=== PATIENT | male | born 1945 | race Caucasian/White ===

== ENCOUNTER 2024-12-04 07:57 | Inpatient (IN) | payer MEDICARE, OTHER, SELFPAY ==
[2024-12-04] VITALS (32 sets, daily range): BP systolic 81–109; BP diastolic 48–91; PULSE 100–125; RESP 18–32; TEMP 36.4–36.6; O2SAT 89–100; BMI 25.0
--- NOTE | ~2024-12-04 | XR_ITS ---
CHEST RADIOGRAPH CLINICAL HISTORY: follow up pulmonary fibrosis . COMPARISON: 12/05/2024 TECHNIQUE: Single portable view of the chest. FINDINGS Redemonstration of diffuse interstitial thickening with a bilateral lower lobe distribution, likely c hronic. Peripheral and bibasilar honeycombing. Bibasilar pleural thickening, right greater than left. IMPRESSION: Stable radiographic evaluation of the chest demonstrating severe pulmonary fibrosis, as detailed delphine yeager. Reviewed, dictated and finalized at location A. IMPRESSION: Stable radiographic evaluation of the chest demonstrating severe pulmonary fibr osis, as detailed above.
--- NOTE | ~2024-12-04 | XR_ITS ---
XR chest 1V portable 12/14/2024 08:45 Indication: Post Covid interstitial lung disease. Procedure: AP portable chest Comparison: Comparison to multiple prior studies sequentially, with oldest reviewed study dated 12/05. Findings: Cardiomegaly. There is coarse chronic interstitial lung disease with basilar and peripheral predominance, consistent with UIP pattern. No significant change dating back to 12/05/2024. Cannot ex clude superimposed edema or pneumonia. No pneumothorax. No acute osseous Impression: 1: Stable coarse chronic interstitial lung disease. Cannot exclude superimposed edema or pneumonia. Reviewed, dictated and finalized at location A. Impression: 1: Stable coarse chronic interstitial lung disease. Cannot exclude superimposed edema or pneumonia.
--- NOTE | ~2024-12-04 | XR_ITS ---
XR chest 1V portable 12/15/2024 15:04 Indication: Tachycardia. Interstitial lung disease. Procedure: AP portable chest Comparison: Comparison to multiple prior studies sequentially, with oldest reviewed study dated 12/05. Findings: Stable bilateral mixed interstitial and airspace disease involving the mid and lower lungs. Small right pleural effusion. No pneumothorax. No acute osseous abnormality. Impression: 1: Unchanged mixed bilateral interstitial and airspace disease mid and lower lungs. Differential diag nosis includes pneumonia, edema and/or interstitial fibrosis. Reviewed, dictated and finalized at location A. Impression: 1: Unchanged mixed bilateral interstitial and airspace disease mid and lower ewa ngs. Differential diagnosis includes pneumonia, edema and/or interstitial fibro sis.
--- NOTE | ~2024-12-04 | XR_ITS ---
EXAMINATION: XR chest 1V portable DATE: 12/10/2024 05:46 INDICATION: Hypoxia TECHNIQUE: frontal view of the chest was obtained. COMPARISON: Chest radiograph dated 12/07/2024 FINDINGS: Persistent coarse reticular opacities throughout both lungs most prominent in the mid to lower lung z ones with additional patchy airspace opacities. Small right pleural effusion. No pneumothorax. Calcif ied nodules projecting over the left hemidiaphragm consistent with old granulomatous disease. Cardiom egaly. Visualized bones and soft tissues are unremarkable. IMPRESSION: 1. Persistent lower lung predominant diffuse interstitial and airspace opacities. Disc related to chr onic interstitial lung disease with and peripheral honeycombing on prior CT favoring usual interstiti al pneumonia (UIP) pattern a more acute pneumonia, moderate pulmonary edema or some combination there of. 2. Cardiomegaly. 2. Small right pleural effusion.. Reviewed, dictated and finalized at location A. IMPRESSION: 1. Persistent lower lung predominant diffuse interstitial and airspace opacitie s. Disc related to chronic interstitial lung disease with and peripheral honeyc ombing on prior CT favoring usual interstitial pneumonia (UIP) pattern a more a cute pneumonia, moderate pulmonary edema or some combination thereof. 2. Cardiomegaly. 2. Small right pleural effusion..
--- NOTE | ~2024-12-04 | CT_ITS ---
EXAMINATION: CT diagnostic chest wo con DATE: 12/12/2024 09:51 INDICATION: Post covid ILD TECHNIQUE: Computed tomography (CT) of the chest was performed without intravenous contrast. Addition al 3D reconstructions utilizing coronal maximum intensity projection (MIP) were performed. Automated exposure control and iterative reconstruction technique were employed. The dose-length product was 39 4.35 mGy-cm. COMPARISON: 12/04/2024 FINDINGS: No significant change in some volume loss in both lungs with elevation the left hemidiaphragm. Again seen is peripheral and lower lung predominant irregular septal line thickening and groundglass opacit ies with peripheral honeycombing consistent with severe usual interstitial pneumonia (UIP) pattern ch ronic interstitial lung disease. The groundglass opacities as well as more patchy airspace consolidat ion at the time of the prior study appears improved likely representing interval improvement in previ ously superimposed pneumonia or pulmonary edema. Diffuse mild pleural thickening in the right hemitho rax with a few unilateral right-sided calcified pleural plaques suggesting prior exudative effusion. Possible minimal right pleural effusion. Calcified left lower lobe nodule along with calcified left h ilar lymph nodes and a few scattered hepatic and splenic calcifications, all consistent with old gran ulomatous disease. Cardiomegaly. Small amount of atherosclerotic coronary artery calcium and aortic v alve calcific lesion. Unchanged minimal pericardial effusion. Thoracic aorta is normal in caliber. En largement of the central pulmonary arteries consistent with pulmonary arterial hypertension. Decrease in size of multiple mildly prominent but no normal-sized mediastinal lymph nodes which are likely re active. Mild to moderate thoracic spondylosis. IMPRESSION: 1. Severe peripheral and lower lung predominant UIP pattern chronic interstitial lung disease with in terval improvement in prior superimposed pulmonary edema and/or pneumonia. 2. Improvement in prior likely reactive mediastinal lymphadenopathy. 3. Unchanged pleural thickening with some scattered calcified pleural plaques in the right hemithorax , likely sequela of chronic exudative effusion with possible residual very small right pleural effusi on. 4. Cardia megaly and enlargement of the central pulmonary arteries, the latter consistent with pulmon oneil arterial hypertension likely related to the chronic interstitial lung disease. Reviewed, dictated and finalized at location A. IMPRESSION: 1. Severe peripheral and lower lung predominant UIP pattern chronic interstitia l lung disease with interval improvement in prior superimposed pulmonary edema and/or pneumonia. 2. Improvement in prior likely reactive mediastinal lymphadenopathy. 3. Unchanged pleural thickening with some scattered calcified pleural plaques i n the right hemithorax, likely sequela of chronic exudative effusion with possi ble residual very small right pleural effusion. 4. Cardia megaly and enlargement of the central pulmonary arteries, the latter consistent with pulmonary arterial hypertension likely related to the chronic i nterstitial lung disease.
--- NOTE | ~2024-12-04 | XR_ITS ---
CHEST RADIOGRAPH CLINICAL HISTORY: SOB . COMPARISON: None available. Reference is made to a contrast-enhanced CT examination of the chest performed 24 hours earlier. TECHNIQUE: Single portable view of the chest. FINDINGS Cardiomediastinal silhouette is partially obscured. Diffuse interstitial thickening with a bilateral lower lobe, likely chronic. Small bilateral pleural effusions are also noted. Peripheral and bibasilar honeycombing is present. IMPRESSION: Redemonstration of severe interstitial lung disease, as detailed above. Reviewed, dictated and finalized at location A.
--- NOTE | ~2024-12-04 | CT_ITS ---
CLINICAL INDICATION: Shortness of breath COMPARISON: None. TECHNIQUE: Multiple contiguous axial images of the chest was performed following the administration o f intravenous contrast. This CT examination was performed utilizing dose reduction techniques. DLP: 346 mGy-cm FINDINGS/OBSERVATIONS: LUNG: Severe interstitial lung disease, with peripheral honeycombing, varicose bronchiectasis, bilateral cy st formation, and diffuse, primarily bibasilar, patchy, groundglass opacification. Volume loss within the right hemithorax is present. Pleural thickening is also noted, with multiple pleural plaques. Calcified granuloma within the left lung base, consistent with prior granulomatous disease. HEART: The heart is enlarged, without pericardial effusion. MEDIASTINUM: Multiple pathologically enlarged and morphologically suspicious lymph nodes are identified within the mediastinum. The largest is within the aortopulmonary window measuring 21 mm in greatest dimension. No significant lymphadenopathy detected within the bilateral axilla or within the soft tissues of the anterior chest wall. SOFT TISSUES OF THE CHEST: Unremarkable. BONES OF THE CHEST: No acute fracture. No lytic or blastic lesions are identified. UPPER ABDOMEN: Decreased attenuation is identified within the periphery of the spleen, possibly related to bolus refugio ing in the absence of a history of trauma for which clinical correlation is needed. Fecal stasis within the colon. IMPRESSION: Severe bilateral interstitial lung disease, as detailed above. Volume loss within the right hemithorax. Mediastinal lymphadenopathy. Findings suggesting prior granulomatous disease. Decreased attenuation within the periphery of the lateral margin of the spleen, possibly related to b olus timing in the absence of a history of trauma for which clinical correlation is needed. Reviewed, dictated and finalized at location A. IMPRESSION: Severe bilateral interstitial lung disease, as detailed above. Volume loss within the right hemithorax. Mediastinal lymphadenopathy. Findings suggesting prior granulomatous disease. Decreased attenuation within the periphery of the lateral margin of the spleen, possibly related to bolus timing in the absence of a history of trauma for whi ch clinical correlation is needed.
[2024-12-04] MEDS: ALBUTEROL SULFATE NEB 2.5 MG/3 ML INH 5 MG INHALATION (08:13)
--- NOTE | 2024-12-04 08:46 | ED.GENADULT ---
HPI - General Adult General Chief complaint: Shortness of Breath/Dyspnea Stated complaint: low O2 History of Present Illness HPI narrative: 79-year-old male with history pulmonary fibrosis on 6 L of oxygen at all time presents emergency department for evaluation for increased shortness of breath. [facility] reported that the patient is post be on 2 L at all time but was on 6-8 L today. Upon arrival emergency department patient had a pulse ox 80% on his 6 L. Patient's lung sounds were clear except for on the left. Patient was treated with nebulized albuterol and placed on BiPAP shortly after arrival. Patient had a recent hospitalization at [facility] for AFib and respiratory failure. Patient does have pulmonary fibrosis. Patient does have an oxygen requirement 6 L at all times. Patient had been at [facility] and was then transferred to [facility]. Patient is on Eliquis for AFib along with metoprolol. Related Data Home Medications ?Medication ?Instructions ?Recorded ?Confirmed ?Last Taken ?Type acetaminophen 325 mg capsule 650 mg PO Q6H PRN fever or pain 12/04/24 12/04/24 Unknown History albuterol sulfate 2.5 mg/0.5 mL 2.5 mg inhalation Q8H SOB 12/04/24 12/04/24 12/03/24 History solution for nebulization albuterol sulfate 2.5 mg/3 mL 2.5 mg inhalation Q6H SOB 12/04/24 12/04/24 Unknown History (0.083 %) solution for nebulization apixaban 5 mg tablet (Eliquis) 5 mg PO Q12H 12/04/24 12/04/24 12/03/24 History atorvastatin 10 mg tablet 10 mg PO HS 12/04/24 12/04/24 12/03/24 History benzonatate 100 mg capsule 100 mg PO Q6H PRN cough 12/04/24 12/04/24 Unknown History bisacodyl 10 mg rectal suppository 10 mg RECTAL DAILY PRN constipation 12/04/24 12/04/24 Unknown History digoxin 250 mcg (0.25 mg) tablet 0.5 mg PO DAILY 12/04/24 12/04/24 12/03/24 History fluticasone propionate 50 1 spray intranasal DAILY PRN 12/04/24 12/04/24 12/03/24 History mcg/actuation nasal allergy symptoms spray,suspension insulin glargine 100 unit/mL 20 unit subcut DAILY 12/04/24 12/04/24 12/03/24 11:35 History subcutaneous solution (Lantus U-100 Insulin) insulin lispro 100 unit/mL 1 sliding scale dose subcut 12/04/24 12/04/24 12/03/24 History subcutaneous solution (Admelog .before meals U-100 Insulin lispro) magnesium hydroxide 400 mg/5 mL 30 ml PO HS PRN constipation 12/04/24 12/04/24 Unknown History oral suspension (Milk of Magnesia) melatonin 5 mg capsule 5 mg PO HS 12/04/24 12/04/24 12/03/24 History metformin 500 mg tablet 500 mg PO BID 12/04/24 12/04/24 12/03/24 History metoprolol tartrate 25 mg tablet 12.5 mg PO Q6H 12/04/24 12/04/24 12/04/24 History ondansetron HCl 4 mg tablet 4 mg PO Q6H PRN nausea and vomiting 12/04/24 12/04/24 Unknown History pantoprazole 40 mg tablet,delayed 40 mg PO BID 12/04/24 12/04/24 12/03/24 History release (Protonix) polyethylene glycol 3350 17 17 g PO BID PRN constipation 12/04/24 12/04/24 Unknown History gram/dose oral powder (ClearLax) prednisone 20 mg tablet 20 mg PO DAILY 12/04/24 12/04/24 12/03/24 History propafenone 225 mg tablet 225 mg PO Q8H 12/04/24 12/04/24 12/04/24 History tamsulosin 0.4 mg capsule 0.4 mg PO HS 12/04/24 12/04/24 12/03/24 History Allergies Allergy/AdvReac Type Severity Reaction Status Date / Time No Known Allergies Allergy Verified 12/04/24 15:01 Review of Systems Review of Systems: All systems reviewed & are unremarkable except as noted in HPI and below PMFSH Past Medical History Medical History (Updated 12/04/24 @ 17:41 by Mariusz King MD) Hyponatremia Atrial fibrillation Dyspnea Impaired skin integrity Interstitial lung disease Hypotension Family History Family History (Updated 12/04/24 @ 15:16 by Raine Rceio RN) Mother Cancer Father Heart failure Social History Social History Smoking status: Never smoker Alcohol intake: never Substance use: never Do You Feel Safe in your Home?: Yes Lack of Transportation: No Lack of Food: Never True Current Housing: I Have Housing Concerned About Future Housing: No Difficulty Paying Gas/Electric Bills: No Difficulty Paying for Meds: No Currently Unemployed: No Education: High School Diploma/GED Difficulty w/ Childcare or Family Care: No Spiritual care concerns: No Exam Narrative: APPEARANCE: Well appearing, no pain, no distress, well-nourished. HEAD: normocephalic, atraumatic. EYES: PERRLA/EOMI, conjunctivae clear. NOSE: Normal no drainage EARS:TMS clear with good light reflex. THROAT: Pharynx clear, no exudate. NECK: Supple. No adenopathy, no masses. RESPIRATORY: Decreased lung sounds on the left CARDIOVASCULAR: Regular rate and rhythm without murmurs rubs or gallops. ABDOMINAL: Soft, nontender, nondistended, normal bowel sounds MUSCULOSKELETAL: Moves all extremities. Strength/ROM intact, No edema, No calf tenderness. NEURO: Alert. Cranial nerves II through XII intact. Good gait. Good coordination SKIN: Warm, dry. Normal Color Course Vital Signs Vital signs: Vital Signs Pulse Oximetry 90 12/04/24 08:04 Oxygen Delivery Nasal Cannula 12/04/24 08:04 Oxygen Flow Rate 6 12/04/24 08:04 Temperature 97.6 F 12/04/24 16:00 Pulse Rate 125 H 12/04/24 16:57 Respiratory Rate 24 H 12/04/24 16:00 Blood Pressure 107/62 12/04/24 16:00 Pulse Oximetry 93 12/04/24 16:05 Oxygen Delivery Nasal Cannula 12/04/24 16:05 Oxygen Flow Rate 6 12/04/24 16:05 Medical Decision Making MDM Narrative Medical decision making narrative: 79-year-old male presents emergency department for possible hypoxia. Patient did have a short trial of BiPAP but family states the patient is always on 5-6 L and patient is saturating well at 5 L in the emergency department. Patient normally sats in the low 90s and that is what his pulse ox is currently. Patient denies any complaints. Medical records were not able to be obtained from [facility] but they were obtained from the [facility]. Patient does have history of atrial fibrillation, does take metoprolol and is on Eliquis. Patient's blood pressures were soft and patient was mildly tachycardic in the emergency department. Patient's blood pressures did respond well with IV fluid rehydration. Patient continues to deny any pain or complaint and patient is in no distress. Patient is currently afebrile with no leukocytosis and hemoglobin of 10.4. Patient does have an INR of 1.2. Patient does have a mild hyponatremia with a sodium of 123 and a creatinine of 1.4, baseline creatinine is not known this could be JESUS. No evidence of urinary tract infection. CT chest does show chronic changes with no evidence of acute pneumonia. EKG appears to be sinus tach. Patient's blood pressure is were in the low 100 systolic so metoprolol was not trial. Patient was not started on amiodarone, will continue IV fluid rehydration. Discussed the case with the hospitalist patient will be admitted to the IMU. Family is also concerned that the patient does not getting enough physical activity and that he is continuing to become further deconditioned. Critical Care Procedure Note Authorized and Performed by: Mariusz King Total critical care time: Approximately 36 minutes Due to a high probability of clinically significant, life threatening deterioration, the patient required my highest level of preparedness to intervene emergently and I personally spent this critical care time directly and personally managing the patient. This critical care time included obtaining a history; examining the patient; pulse oximetry; ordering and review of studies; arranging urgent treatment with development of a management plan; evaluation of patient's response to treatment; frequent reassessment; and, discussions with other providers. This critical care time was performed to assess and manage the high probability of imminent, life-threatening deterioration that could result in multi-organ failure. It was exclusive of separately billable procedures and treating other patients and teaching time. Please see MDM section and the rest of the note for further information on patient assessment and treatment. Differential Diagnosis Differential Diagnosis: Pneumonia, respiratory distress, sinus tachycardia, AFib a flutter, UTI COVID, RSV, influenza Vital Signs Vital Signs: Vital Signs Pulse Oximetry 90 12/04/24 08:04 Oxygen Delivery Nasal Cannula 12/04/24 08:04 Oxygen Flow Rate 6 12/04/24 08:04 Temperature 97.6 F 12/04/24 16:00 Pulse Rate 125 H 12/04/24 16:57 Respiratory Rate 24 H 12/04/24 16:00 Blood Pressure 107/62 12/04/24 16:00 Pulse Oximetry 93 12/04/24 16:05 Oxygen Delivery Nasal Cannula 12/04/24 16:05 Oxygen Flow Rate 6 12/04/24 16:05 Lab Data Lab results reviewed: Yes I reviewed the patient's lab results. 12/04/24 08:41 12/04/24 08:41 Labs: Lab Results 12/04/24 12/04/24 Range/Units 08:41 11:44 WBC 5.3 (4.5-10.0) K/mm3 RBC 3.66 L (4.6-6.20) M/mm3 Hgb 10.4 L (14.0-18.0) g/dL Hct 30.3 L (42.0-52.0) % MCV 82.8 (80-100) fl MCH 28.4 (26-34) pg MCHC 34.3 (32-36) g/dl RDW 15.2 H (11.5-14.5) % Plt Count 126 L (150-375) k/mm3 MPV 9.2 (7.4-10.4) fl Immature Gran % (Auto) 4.2 H (0-0.5) % Neut % (Auto) 43.0 L (45.5-73.1) % Lymph % (Auto) 48.4 H (18.3-44.2) % [place] % (Auto) 3.2 (2.6-8.5) % Eos % (Auto) 0.6 (0-4.4) % Baso % (Auto) 0.6 (0.2-1.2) % Lymph # (Auto) 2.54 (0.9-3.2) K/mm3 [place] # (Auto) 0.2 (0.1-0.6) K/mm3 Eos # (Auto) 0.0 (0-0.3) K/mm3 Baso # (Auto) 0.0 (0.0-0.1) K/mm3 Abs Immat Gran (auto) 0.22 H (0.00-0.031) K/mm3 Absolute Neuts (auto) 2.3 (1.3-6.7) K/mm3 Absolute Nucleated RBC 0.000 (0.0-0.012) K/mm3 Band Neutrophils % Not Reportable Nucleated RBC % 0.0 (0.0-0.2) % Atypical Lymphocytes Present Smudge Cells Present Platelet Estimate Decreased (Adequate) Schistocytes None seen PT 15.4 H (11.1-14.7) Seconds INR 1.2 APTT 35.8 (22.3-36.8) Seconds Sodium 123 L (137-145) mmol/L Potassium 4.1 (3.4-5.0) mmol/L Chloride 96 L (98-107) mmol/L Carbon Dioxide 25 (22-30) mmol/L Anion Gap 2 L (4-12) mmol/L BUN 27 H (9-20) mg/dL Creatinine 1.40 H (0.7-1.3) mg/dL Estim Creat Clear Calc 41 ml/min Estimated GFR 49 L (59 - ) Glucose 72 (65-110) mg/dL POC Capillary Glucose 81 (65-105) mg/dl Lactic Acid 0.9 (0.7-2.0) mmol/L Calcium 7.1 L (8.4-10.2) mg/dL Total Bilirubin 0.6 (0.2-1.3) mg/dL AST 26 (17-59) U/L ALT 25 (6-50) U/L Alkaline Phosphatase 69 (38-126) U/L Total Protein 4.8 L (6.3-8.2) g/dL Albumin 2.2 L (3.5-5.1) g/dL Urine Color Yellow (Yellow) Urine Appearance Clear (Clear) Urine pH 5.5 (5.0-9.0) Ur Specific [place] 1.020 (1.001-1.035) Urine Protein 1+ H (Negative) mg/dL Urine Glucose (UA) Negative (Negative) mg/dL Urine Ketones Trace H (Negative) mg/dL Ur Blood (Man) Negative (Negative) Urine Nitrate Negative (Negative) Urine Bilirubin 1+ H (Negative) Urine Urobilinogen 1.0 (<2.0) mg/dL Leukocyte Esterase Rfl Negative (Negative) SHA/UL Urine RBC 0-2 (0-2) /hpf Urine WBC 0-5 (0-3) /hpf Ur Squamous Epith Cells None seen (Few) /hpf Urine Bacteria None seen /hpf Urine Casts 0-2 Imaging Data Radiologist's impression: Impressions Chest CT 12/04/24 10:59 IMPRESSION: Severe bilateral interstitial lung disease, as detailed above. Volume loss within the right hemithorax. Mediastinal lymphadenopathy. Findings suggesting prior granulomatous disease. Decreased attenuation within the periphery of the lateral margin of the spleen, possibly related to bolus timing in the absence of a history of trauma for which clinical correlation is needed. ECG Data EKG #1: EKG Interpretation: tachycardia, sinus rhythm, no ectopy, non-specific ST changes, normal QRS and NL axis Critical Care Time Critical Care Time Critical Care Time: Yes Total Critical Care Time: 36 Discharge Plan Discharge Clinical Impression: Interstitial lung disease, Hypotension, Dyspnea, Tachycardia Patient Disposition: Still a Patient Condition: Serious
[2024-12-04] MEDS: LACTATED RINGERS 1,000 ML 999 ML IV CONT ×2 (08:51→12:31)
[2024-12-04 08:54] LABS: Hematocrit 30.3 % (42.0-52.0); Hemoglobin 10.4 g/dL (14.0-18.0); Immature Granulocyte Percent A 4.2 % (0-0.5); Lymphocytes Absolute Auto 2.54 K/mm3 (0.9-3.2); Mean Corpuscular HGB Conc 34.3 g/dl (32-36); Mean Corpuscular Hemoglobin 28.4 pg (26-34); Mean Corpuscular Volume 82.8 fl (80-100); Nucleated Red Blood Cells Absolute Auto 0.000 K/mm3 (0.0-0.012); Nucleated Red Blood Cells Perc 0.0 % (0.0-0.2); Platelet Count Result 126 k/mm3 (150-375); Red Blood Count 3.66 M/mm3 (4.6-6.20); White Blood Count 5.3 K/mm3 (4.5-10.0)
[2024-12-04 09:03] LABS: Appearance Urine Clear (Clear); Glucose Urine UA Negative (Negative); Nitrate Urine Negative (Negative); Specific Grav Ur 1.020 (1.001-1.035)
[2024-12-04 09:04] LABS: Add Urine Microscopic? YES; INR 1.2; Leukocyte Esterase Ur Negative LEU/UL (Negative); Partial Thromboplastin Time 35.8 Seconds (22.3-36.8); Prothrombin Time 15.4 Seconds (11.1-14.7)
[2024-12-04 09:05] LABS: Non Pathogenic Casts 0-2
[2024-12-04 09:08] LABS: Schistocytes None Seen; Smudge Cells PRESENT
[2024-12-04 09:12] LABS: Alanine Aminotransferase 25 U/L (6-50); Albumin Level 2.2 g/dL (3.5-5.1); Alkaline Phosphatase 69 U/L (38-126); Anion Gap 2 mmol/L (4-12); Aspartate Amino Transferase 26 U/L (17-59); Bilirubin,Total 0.6 mg/dL (0.2-1.3); Blood Urea Nitrogen 27 mg/dL (9-20); Calcium 7.1 mg/dL (8.4-10.2); Carbon Dioxide 25 mmol/L (22-30); Chloride 96 mmol/L (98-107); Estimated CRCL calculation 41 ml/min; Estimated Glomerular Filt Rate 49; Glucose 72 mg/dL (65-110); Potassium 4.1 mmol/L (3.4-5.0); Sodium 123 mmol/L (137-145); Total Protein 4.8 g/dL (6.3-8.2)
--- NOTE | 2024-12-04 11:19 | ECG_ITS ---
Test Date: 2024-12-04 12:28:35 Measurements Intervals [place] Rate: 123 P: 229 TN: 192 QRS: 33 QRSD: 116 T: -30 QT: 289 QTc: 414 Interpretive Statements SINUS TACHYCARDIA INCOMPLETE RIGHT BUNDLE BRANCH BLOCK [90+ ms QRS DURATION, TERMINAL R IN V1/V2, 40+ ms S IN I/aVL/V4/V5/V6] MINIMAL ST DEPRESSION No previous ECG available for comparison Electronically Signed On 12-04-2024 18:00:36 CDT by Randal Pham M.D.
--- NOTE | 2024-12-04 12:56 | ECG_ITS ---
Test Date: 2024-12-04 12:52:17 Measurements Intervals [place] Rate: 119 P: 0 NE: 0 QRS: 27 QRSD: 123 T: -31 QT: 333 QTc: 469 Interpretive Statements ATRIAL FLUTTER/TACHYCARDIA WITH RAPID VENTRICULAR RESPONSE MODERATE INTRAVENTRICULAR CONDUCTION DELAY [110+ ms QRS DURATION] MODERATE ST DEPRESSION [0.05+ mV ST DEPRESSION] Compared to ECG 12/04/2024 12:28:35 Intraventricular conduction delay now present Sinus tachycardia no longer present Incomplete right bundle-branch block no longer present ST (T wave) deviation still present Electronically Signed On 12-04-2024 18:02:23 CDT by Randal Pham M.D.
--- NOTE | 2024-12-04 14:50 | WNDPHOTO ---
PHOTO ONLY - See Nursing Notes and/ or assessments for documentation.
--- NOTE | 2024-12-04 14:50 | WNDPHOTO ---
PHOTO ONLY - See Nursing Notes and/ or assessments for documentation.
--- NOTE | 2024-12-04 15:03 | P.HP_ITS ---
H&P: HPI History of Present Illness Date/Time: 12/04/24 15:03 Chief Complaint: Dyspnea Narrative: This is an 79 year male patient with past medical history significant pulmonary fibrosis status post COVID diagnosis on 6 L oxygen, atrial fibrillation on and control metoprolol who currently resides at [facility] Where he is currently at for rehabilitation. Prior to going to [facility], [facility] was in [facility] [place] and transferred to [place] and ultimately transferred to [facility]. Pt alert, oriented x4 and without any acute complaint. He was sent to the ER with complaints of hypoxia and dyspnea after nursing service found him with low oxygen sats in his room, noted to be on 2L. He was sent to the ER where he required a few moments of BiPap and has ultimately recovered to his baseline on 5L Supplemental oxygen. His EKG upon arrival to the ER showed a variable rate/rhythm that was either ST or A-flutter/tach with rates from low 100s-120s. Although he has Metoprolol ordered for rate control as he does have a hx of A- fib, it was not given as pt's BP has been on the lower side. Pt has no respiratory complaints and no concerns of CP. His only complaint is pain in his coccyx region from breakdown. In the emergency room fall was performed EKG showing either sinus tachycardia versus a flutter with RVR, however unable to be controlled with beta blockade as patient's blood pressure has been low. CT of the chest showing severe bilateral interstitial lung disease with mediastinal lymphadenopathy present. CBC unremarkable with WBC is 5.3 and intact H&H. Metabolic panel showing hypo natremia at 1:23 a.m.. Renal function impaired with creatinine and BUN of 1.4/, however we do not know patient's baseline as there is none historical in our system. Glucose noted to be 72. Urinalysis was unremarkable and coags are normal. ER physician was concerned for potential dehydration component contributing to patient's tachycardia. He was given a Liter of LR and albuterol nebulizer. It should be noted that we do not have any historical information of PMH on this pt in our EMR system for comparison and trending purposes. He tells me that he does not see a regular Generator [employer] for his ILD. He also does not see a Client Resource Specialist despite his hx of A-fib. Review of Systems Review of Systems: All systems reviewed & are unremarkable except as noted in HPI and below PMFSH Past Medical History Medical History (Updated 12/04/24 @ 15:32 by ALLI Mcwilliams) Hyponatremia Atrial fibrillation Dyspnea Impaired skin integrity Interstitial lung disease Hypotension Family History Family History (Updated 12/04/24 @ 15:16 by Raine Recio RN) Mother Cancer Father Heart failure Social History Social History Smoking status: Never smoker Alcohol intake: never Substance use: never Do You Feel Safe in your Home?: Yes Lack of Transportation: No Lack of Food: Never True Current Housing: I Have Housing Concerned About Future Housing: No Difficulty Paying Gas/Electric Bills: No Difficulty Paying for Meds: No Currently Unemployed: No Education: High School Diploma/GED Difficulty w/ Childcare or Family Care: No Spiritual care concerns: No Meds Home Medications and Allergies Allergies Allergy/AdvReac Type Severity Reaction Status Date / Time No Known Allergies Allergy Verified 12/04/24 15:01 Vital Signs Vital Signs - 24 hr 12/04/24 08:04 12/04/24 08:08 12/04/24 08:10 Temperature 97.9 F Pulse Rate 118 H 120 H Respiratory Rate 28 H 24 H Blood Pressure 88/59 L 87/60 L Pulse Oximetry 90 90 98 Oxygen Delivery Nasal Cannula Nasal Cannula Oxygen Flow Rate 6 6 12/04/24 08:15 12/04/24 08:15 12/04/24 08:29 Temperature Pulse Rate 120 H 120 H 119 H Respiratory Rate 32 H 32 H 29 H Blood Pressure Pulse Oximetry 100 Oxygen Delivery BiPAP Oxygen Flow Rate 12/04/24 09:15 12/04/24 09:31 12/04/24 09:35 Temperature 97.8 F Pulse Rate 118 H 121 H 121 H Respiratory Rate 24 H 18 18 Blood Pressure 105/62 89/71 L Pulse Oximetry 100 100 100 Oxygen Delivery BiPAP Oxygen Flow Rate 12/04/24 10:01 12/04/24 10:16 12/04/24 11:17 Temperature 97.9 F 97.8 F Pulse Rate 122 H 122 H 121 H Respiratory Rate 18 24 H 21 H Blood Pressure 109/91 H 101/64 81/55 L Pulse Oximetry 94 90 Oxygen Delivery Oxygen Flow Rate 12/04/24 11:37 12/04/24 11:45 12/04/24 12:00 Temperature 97.7 F Pulse Rate 114 H 122 H 122 H Respiratory Rate 18 22 H 20 Blood Pressure 84/51 L 82/48 L 87/52 L Pulse Oximetry 96 96 97 Oxygen Delivery Oxygen Flow Rate 12/04/24 12:11 12/04/24 12:15 12/04/24 12:30 Temperature Pulse Rate 122 H 122 H 114 H Respiratory Rate 26 H 28 H 25 H Blood Pressure 88/67 L 88/62 L 93/57 L Pulse Oximetry 94 96 97 Oxygen Delivery Oxygen Flow Rate 12/04/24 12:45 12/04/24 13:00 12/04/24 13:15 Temperature 97.7 F Pulse Rate 121 H 120 H 121 H Respiratory Rate 18 18 20 Blood Pressure 98/58 L 103/63 100/61 Pulse Oximetry 99 99 91 Oxygen Delivery Oxygen Flow Rate 12/04/24 13:30 12/04/24 13:45 Temperature 97.6 F Pulse Rate 122 H 100 Respiratory Rate 19 19 Blood Pressure 93/62 L 95/61 L Pulse Oximetry 95 93 Oxygen Delivery Oxygen Flow Rate Exam Const: General: comfortable and no acute distress Other: Elderly male pt lying in bed at this time in no acute distress. HENMT: Face/Nose/Sinus: Normal nares present Mouth: Yes moist mucous membranes Eyes: General: appearance normal, both eyes and all related structures Neck: Neck: supple and no JVD Lymphatic: lymphadenopathy not noted Chest: Other: Non-tender Resp: Effort & Inspection: normal respiratory effort Auscultation: rhonchi lower bilaterally (coarse in bases.) Cardio: Rate: tachycardic Rhythm: regular rhythm Heart sounds: no gallops, no murmurs and no rubs GI: GI Palp: Yes Soft to palpation and No Tenderness to palpation present (GI) Auscultation: normal bowel sounds Skin: Rashes: rashes noted (Red, purpural rash in a band around the abdomen, back and the sides ) Wounds: wounds noted (coccyx stage 2) Other: Rash is in a location where a depends or an adult brief would sit on his skin. Pt acknowledges that he does wear a brief at the halfway. Neuro: Speech: normal speech Motor exam (neuro): 5/5 motor strength present throughout Sensory Exam: normal sensation Other: No focal deficit. Extrem: General: no edema and no pedal edema Other: No swelling present. FROM of extremities without deficit. Psych: Mental Status: mental status grossly normal Affect: normal affect H&P: Results Labs Labs: Short CBC 12/04/24 Range/Units 08:41 WBC 5.3 (4.5-10.0) K/mm3 Hgb 10.4 L (14.0-18.0) g/dL Hct 30.3 L (42.0-52.0) % Plt Count 126 L (150-375) k/mm3 BMP 12/04/24 08:41 Sodium 123 L Potassium 4.1 Chloride 96 L Carbon Dioxide 25 BUN 27 H Creatinine 1.40 H Glucose 72 Calcium 7.1 L Liver Function 12/04/24 Range/Units 08:41 Total Bilirubin 0.6 (0.2-1.3) mg/dL AST 26 (17-59) U/L ALT 25 (6-50) U/L Alkaline Phosphatase 69 (38-126) U/L Albumin 2.2 L (3.5-5.1) g/dL Urine 12/04/24 Range/Units 08:41 Urine Color Yellow (Yellow) Urine Appearance Clear (Clear) Urine pH 5.5 (5.0-9.0) Ur Specific [place] 1.020 (1.001-1.035) Urine Protein 1+ H (Negative) mg/dL Urine Glucose (UA) Negative (Negative) mg/dL Assessment and Plan Assessment and plan (1) Hypotension: Code(s): I95.9 - Hypotension, unspecified Status: Acute Assessment and Plan: * Pt's BP has been running soft 87-109/48-91. * Continue Telemetry * Monitor. * Hold any BP meds at this time. * If pt flips into Fib RVR, consider Amiodarone for rhythm/rate. * Consider Consult to Cardiology. (2) Dyspnea: Code(s): R06.00 - Dyspnea, unspecified Status: Acute Assessment and Plan: * Likely acute on chronic and likely invoked by the decreased baseline supplemental oxygen at halfway. * Continue pt's baseline 5L-6L per [place] supplemental oxygen. * Rhonchi present on physical exam. Will order Duonebs Q6 hrs scheduled and prn Albuterol nebs. * Continue to monitor oxygen sats on telemetry * Consult Pulmonology in the setting of chronic ILD after COVID dx. (3) Hyponatremia: Code(s): E87.1 - Hypo-osmolality and hyponatremia Status: Acute Assessment and Plan: * Sodium is 123. * Replace with gentle hydration with NS at 100 ml.hr. * Trend with Labs. (4) Impaired skin integrity: Code(s): R23.9 - Unspecified skin changes Status: Acute Assessment and Plan: * Wounds noted to Coccyx and buttocks. Pics taken by nurse. * Consult Wound nurse * Offload weight on affected area. * For rash around abdomen, suggest not wearing a depends/adult brief. (5) Interstitial lung disease: Code(s): J84.9 - Interstitial pulmonary disease, unspecified Status: Chronic Assessment and Plan: * See #2 * Consult Pulmonology * ABG in AM. * Continue Nebs and supportive care * Continue Telemetry (6) Atrial fibrillation: Code(s): I48.91 - Unspecified atrial fibrillation Status: Chronic Assessment and Plan: * Unable to use Beta theresa at this time secondary to Hypotension as noted in #1. * Continue Eliquis * Continue Telemetry * Consider Cardiology eval and addition of Amiodarone to meds if rate/rhythm is not well controlled. Quality VTE Prophylaxis VTE prophylaxis: pharmacologic ordered Hospitalist MIPS Advance Care Plan I have confirmed that the patient's Advanced Care Plan is present, code status is documented, or surrogate decision maker is listed in patient medical record.: Yes Medication Reconciliation I have utilized all available resources to obtain, update and review the patients current medications (includes all prescriptions, OTC, herbals, cannabis, and nutritional supplements).: Yes
--- NOTE | 2024-12-04 15:03 | ADMGEN ---
This patient, Zack Fofana, was admitted to IMU Room 204-01 at approximately 1500. Patient/family oriented to hospital policies and general routines including ID bracelet, bed and alarms, visiting hours, pain management, procedures, bathroom and other care routines, personal items, smoking policy, room service/diet, and visiting hours. Information on how to activate the Rapid Response Team has been discussed. Patient/Family are encouraged to report perceived risks to care and to ask questions if they do not understand what they are told or what they should do.
[2024-12-04] MEDS: SODIUM CHLORIDE 0.9% IV 1,000 ML 100 ML IV CONT (16:12)
--- NOTE | 2024-12-04 18:35 | ECG_ITS ---
Test Date: 2024-12-04 18:35:41 Measurements Intervals [place] Rate: 122 P: 0 MA: 0 QRS: 144 QRSD: 121 T: 222 QT: 331 QTc: 472 Interpretive Statements ATRIAL FLUTTER/TACHYCARDIA WITH RAPID VENTRICULAR RESPONSE WITH ABERRANT CONDUCTION OR VENTRICULAR PREMATURE COMPLEXES INTRAVENTRICULAR CONDUCTION DELAY Compared to ECG 12/04/2024 12:52:17 Ventricular premature complex(es) now present Aberrant conduction of supraventricular beat(s) now present Electronically Signed On 12-05-2024 12:36:02 CDT by Randal Pham M.D.
[2024-12-04] MEDS: IPRATROPIUM 0.5 MG/ALBUTEROL SULFATE 2.5 MG AMPUL.NEB 3 ML INHALATION (19:45)
[2024-12-04] MEDS: APIXABAN 5 MG TABLET PO (20:57)
[2024-12-04 21:37] LABS: Hemoglobin A1C 7.5 % (<5.7)
[2024-12-04] MEDS: TAMSULOSIN HCL 0.4 MG CAPSULE PO (21:37)
[2024-12-04] MEDS: MELATONIN 5 MG TABLET PO (21:37)
[2024-12-04] MEDS: ATORVASTATIN 10 MG TABLET PO (21:37)
[2024-12-04 22:08] LABS: Digoxin < 0.5 ng/mL (0.8-2.0)
[2024-12-05] VITALS (38 sets, daily range): BP systolic 94–110; BP diastolic 50–64; PULSE 92–131; RESP 20–26; TEMP 36.4–36.9; O2SAT 87–97
--- NOTE | 2024-12-05 | ECHO_ITS ---
Patient Info Name: Zack Fofana Age: 79 years : 1945 Gender: Male Ht: 72 in Wt: 188 lbs BSA: 2.09 m2 HR: 91 bpm BP: 110 / 50 mmHg Heart Rhythm: Sinus Rhythm Technical Quality: Fair Exam Date: 12/05/2024 12:39 PM Patient Status: I Admit Date: 12/04/2024 Exam Type: CA echo doppler color flow Complete two-dimensional, color flow and Doppler transthoracic echocardiogram is performed. Staff Referring Physician: Oh Cabello Sensitizer: Ronit Holder Attending Provider: Oh Cabello Summary 1. Complete two-dimensional, color flow and Doppler transthoracic echocardiogram is performed. 2. There is normal biventricular size and systolic function. 3. The aortic valve is not well visualized however does not appear to have any hemodynamically significant aortic stenosis. 4. There are no significant valvular abnormalities. 5. There is insufficient tricuspid regurgitation to calculate the pulmonary artery systolic pressures. 6. There is a small size pericardial effusion. Left Ventricle The left ventricle is normal in size with hyperdynamic systolic function. The left ventricular ejection fraction is greater than 70%. Right Ventricle The right ventricle is normal in size and systolic function. Left Atria The left atrium is mildly dilated. Right Atria The right atrium is normal size. Atrial Septum The atrial septum is normal. Aortic Valve The aortic valve is not well visualized. There is no echo gradient Doppler evidence for hemodynamically significant aortic stenosis. Pulmonic Valve The pulmonic valve is not well visualized. Mitral Valve The mitral valve is normal. There is no mitral regurgitation. Tricuspid Valve The tricuspid valve is normal. There is trace tricuspid regurgitation. Pericardium/Pleural There is a small size pericardial effusion. Inferior Vena Cava Normal inferior vena cava with >50% collapse upon inspiration consistent with normal right atrial pressure, 3 mmHg. Aorta The aortic root is not well visualized. Left Ventricular Outflow Tract Name Value Normal LVOT 2D LVOT Diameter 2.0 cm LVOT Doppler LVOT Peak Velocity 121 cm/s LVOT Peak Gradient 6 mmHg LVOT Mean Gradient 3 mmHg LVOT VTI 16 cm LVOT VTI/AV VTI Ratio 0.9 LVOT Stroke Volume 51 ml LVOT CO 6.4 l/min LVOT CI 3.0 l/min/m2 Pulmonic Valve Name Value Normal RVOT Doppler RVOT Peak Velocity 91 cm/s RVOT Peak Gradient 3 mmHg PV Doppler PV Peak Velocity 112 cm/s PV Peak Gradient 5 mmHg Mitral Valve Name Value Normal MV Diastolic Function MV E Peak Velocity 85 cm/s MV A Peak Velocity 73 cm/s MV E/A 1.2 MV Decel Time (PW) 93 ms MV Annular TDI MV E/e' (Septal) 10.4 MV E/e' (Lateral) 11.1 MV E/e' (Average) 10.7 Tricuspid Valve Name Value Normal TV Regurgitation Doppler TR Peak Velocity 308 cm/s TR Peak Gradient 38 mmHg Estimated PAP/RSVP RA Pressure 3 mmHg <=5 PA Systolic Pressure 41 mmHg <36 RV Systolic Pressure 41 mmHg <36 TV Annular TDI TV Lateral Dulce s' Velocity 16.6 cm/s >=9.5 Aorta Name Value Normal Ascending Aorta Ao Root Diameter (MM) 3.6 cm Ao Root Diam Index (MM) 1.7 cm/m2 Aortic Valve Name Value Normal AV Doppler AV Peak Velocity 155 cm/s AV Peak Gradient 10 mmHg AV Mean Gradient 5 mmHg AV VTI 19 cm AV Area (Cont Eq VTI) 2.7 cm2 >=3.0 AV Area (Cont Eq Phillip) 2.4 cm2 AV DI (Phillip) 0.78 AV Regurgitation 2D LVOT Area 3.1 cm2 Ventricles Name Value Normal LV Dimensions 2D/MM IVS Diastolic Thickness (2D) 0.9 cm 0.6-1.0 LVID Diastole (2D) 4.3 cm 4.2-5.8 LVIW Diastolic Thickness (2D) 0.8 cm 0.6-1.0 LVID Systole (2D) 3.0 cm 2.5-4.0 LVOT Diameter 2.0 cm LV Mass (2D Cubed) 116.94 g 88.00-224.00 LV Mass Index (2D Cubed) 56 g/m2 49-115 Relative Wall Thickness (2D) 0.37 <=0.42 LV Fractional Shortening/Ejection Fraction 2D/MM LV Fractional Shortening (2D) 30 % 25-43 LV EF (2D Teichholz) 57 % LV Diastolic Volume (4C MOD) 55 ml LV EF (4C MOD) 69 % LV Diastolic Volume (2C MOD) 50 ml LV EF (2C MOD) 66 % LV Diastolic Volume (BP MOD) 53 ml 62-150 LV Diastolic Volume Index (BP MOD) 25 ml/m2 34-74 LV Systolic Volume (BP MOD) 17 ml 21-61 LV Systolic Volume Index (BP MOD) 8 ml/m2 11-31 LV EF (BP MOD) 67 % 52-72 LV Diastolic Length (4C) 7.6 cm LV Systolic Length (4C) 6.7 cm LV Stroke Volume (4C MOD) 38 ml Atria Name Value Normal LA Dimensions LA Dimension (MM) 4.7 cm 3.0-4.0 LA Volume (4C A-L) 77 ml LA Volume (BP A-L) 82 ml RA Dimensions RA Systolic Major Brandon Length (4C) 6.9 cm 2.1-2.7 RA Area (4C) 26.0 cm2 <=18.0 Report Signatures
[2024-12-05] MEDS: IPRATROPIUM 0.5 MG/ALBUTEROL SULFATE 2.5 MG AMPUL.NEB 3 ML INHALATION (01:00)
--- NOTE | 2024-12-05 02:37 | ECG_ITS ---
Test Date: 2024-12-05 02:41:03 Measurements Intervals [place] Rate: 130 P: 0 NH: 0 QRS: 57 QRSD: 121 T: -34 QT: 216 QTc: 318 Interpretive Statements ATRIAL FLUTTER/TACHYCARDIA WITH RAPID VENTRICULAR RESPONSE POSSIBLE INFERIOR MYOCARDIAL INFARCTION [30 ms Q WAVE IN II/aVF], PROBABLY OLD ABNORMAL RHYTHM ECG Compared to ECG 12/04/2024 18:35:41 Myocardial infarct finding now present Ventricular premature complex(es) no longer present Aberrant conduction of supraventricular beat(s) no longer present Intraventricular conduction delay no longer present Electronically Signed On 12-05-2024 12:40:47 CDT by Randal Pham M.D.
[2024-12-05] MEDS: SODIUM CHLORIDE 0.9% IV 1,000 ML 100 ML IV CONT ×2 (02:58→17:24)
[2024-12-05] MEDS: METOPROLOL TARTRATE INJ 5 MG/5 ML VIAL IV PUSH (04:03)
[2024-12-05 04:28] LABS: Hematocrit 32.0 % (42.0-52.0); Hemoglobin 10.6 g/dL (14.0-18.0); Immature Granulocyte Percent A 4.1 % (0-0.5); Lymphocytes Absolute Auto 2.03 K/mm3 (0.9-3.2); Mean Corpuscular HGB Conc 33.1 g/dl (32-36); Mean Corpuscular Hemoglobin 27.8 pg (26-34); Mean Corpuscular Volume 84.0 fl (80-100); Nucleated Red Blood Cells Absolute Auto 0.000 K/mm3 (0.0-0.012); Nucleated Red Blood Cells Perc 0.0 % (0.0-0.2); Platelet Count Result 150 k/mm3 (150-375); Red Blood Count 3.81 M/mm3 (4.6-6.20); White Blood Count 5.2 K/mm3 (4.5-10.0)
[2024-12-05 04:39] LABS: INR 1.3; Prothrombin Time 16.3 Seconds (11.1-14.7)
[2024-12-05 04:40] LABS: Partial Thromboplastin Time 30.4 Seconds (22.3-36.8)
[2024-12-05 04:54] LABS: Alanine Aminotransferase 24 U/L (6-50); Albumin Level 2.1 g/dL (3.5-5.1); Alkaline Phosphatase 66 U/L (38-126); Anion Gap 4 mmol/L (4-12); Aspartate Amino Transferase 29 U/L (17-59); Bilirubin,Total 0.6 mg/dL (0.2-1.3); Blood Urea Nitrogen 21 mg/dL (9-20); Calcium 7.1 mg/dL (8.4-10.2); Carbon Dioxide 24 mmol/L (22-30); Chloride 99 mmol/L (98-107); Estimated CRCL calculation 48 ml/min; Estimated Glomerular Filt Rate 59; Glucose 70 mg/dL (65-110); Magnesium 1.7 mg/dL (1.6-2.3); Potassium 4.1 mmol/L (3.4-5.0); Sodium 127 mmol/L (137-145); Total Protein 4.8 g/dL (6.3-8.2)
[2024-12-05 05:16] LABS: Thyroid Stimulating Hormone Reflex 1.400 uIU/mL (0.465-4.68)
[2024-12-05] MEDS: DIGOXIN 250 MCG TABLET 500 MCG PO (09:17)
[2024-12-05] MEDS: APIXABAN 5 MG TABLET PO ×2 (09:18→20:15)
[2024-12-05] MEDS: INSULIN GLARGINE (*BKC) 100 UNITS/ML 20 UNITS SUB-Q (10:56)
--- NOTE | 2024-12-05 11:04 | PC.NURSE ---
Pts heart rate sustaining between 125-130. Dr. Cabello notified. Resuming home dose of metoprolol and changing nebulizer treatment
[2024-12-05] MEDS: METOPROLOL TARTRATE 12.5 MG TABLET PO ×2 (12:09→17:23)
--- NOTE | 2024-12-05 13:31 | P.PNIM_ITS ---
Progress Note: A&P Assessment and Plan (1) Hypotension: Code(s): I95.9 - Hypotension, unspecified Status: Acute Assessment and Plan: * Pt's BP has been running soft 87-109/48-91. * Continue Telemetry no Pnuemomnia on chest x ray titrate home meds with clinical course Continue IVF and monitor closely (2) Dyspnea: Code(s): R06.00 - Dyspnea, unspecified Status: Acute Assessment and Plan: * Likely acute on chronic and likely invoked by the decreased baseline supplemental oxygen at [facility]. * Continue pt's baseline 5L-6L per [place] supplemental oxygen. * Rhonchi present on physical exam. Will order Duonebs Q6 hrs scheduled and prn Albuterol nebs. * Continue IV Steroid * Consulted Pulmonology (3) Hyponatremia: Code(s): E87.1 - Hypo-osmolality and hyponatremia Status: Acute Assessment and Plan: * Sodium is 127 * with rehydration * urine studies pending (4) Impaired skin integrity: Code(s): R23.9 - Unspecified skin changes Status: Acute Assessment and Plan: * Wounds noted to Coccyx and buttocks. Pics taken by nurse. * Consult Wound nurse * Offload weight on affected area. * For rash around abdomen, suggest not wearing a depends/adult brief. (5) Interstitial lung disease: Code(s): J84.9 - Interstitial pulmonary disease, unspecified Status: Chronic Assessment and Plan: contineu above care (6) Atrial fibrillation: Code(s): I48.91 - Unspecified atrial fibrillation Status: Chronic Assessment and Plan: * Unable to use Beta theresa at this time secondary to Hypotension as noted in #1. * Continue Eliquis * restart MEtoprolol adn Digoxin adn monitor blood pressure * EHCO pending Plan DVT prohylaxis on Eliquis Subjective Date/time seen: 12/05/24 13:31 Interval history: Comfortable at bedside Review of Systems Review of Systems: All systems reviewed & are unremarkable except as noted in HPI and below Exam Const: General: comfortable and no acute distress Other: Elderly male pt lying in bed at this time in no acute distress. HENMT: Face/Nose/Sinus: Normal nares present Mouth: Yes moist mucous membranes Eyes: General: appearance normal, both eyes and all related structures Neck: Neck: supple and no JVD Lymphatic: lymphadenopathy not noted Chest: Other: Non-tender Resp: Effort & Inspection: normal respiratory effort Auscultation: rhonchi lower bilaterally (coarse in bases.) Cardio: Rate: tachycardic Rhythm: regular rhythm Heart sounds: no gallops, no murmurs and no rubs GI: Auscultation: normal bowel sounds Skin: General skin exam: rashes (Red, purpural rash in a band around the abdomen, back and the sides ) and wounds noted (coccyx stage 2) Rashes: rashes noted (Red, purpural rash in a band around the abdomen, back and the sides ) Wounds: wounds noted (coccyx stage 2) Other: Rash is in a location where a depends or an adult brief would sit on his skin. Pt acknowledges that he does wear a brief at the [facility]. Neuro: Speech: normal speech Motor exam (neuro): 5/5 motor strength present throughout Sensory Exam: normal sensation Other: No focal deficit. Extrem: General: no edema and no pedal edema Other: No swelling present. FROM of extremities without deficit. Psych: Mental Status: mental status grossly normal Affect: normal affect Objective Data Vital Signs Vital Signs: Vital Signs - 24 hr 12/04/24 13:45 12/04/24 16:00 12/04/24 16:00 Temperature 97.6 F 97.6 F Pulse Rate 100 125 H Respiratory Rate 19 24 H Blood Pressure 95/61 L 107/62 Pulse Oximetry 93 91 89 L Oxygen Delivery Nasal Cannula Oxygen Flow Rate 5 Fraction of Inspired Oxygen 12/04/24 16:05 12/04/24 16:57 12/04/24 18:00 Temperature Pulse Rate 125 H 115 H Respiratory Rate Blood Pressure Pulse Oximetry 93 Oxygen Delivery Nasal Cannula Oxygen Flow Rate 6 Fraction of Inspired Oxygen 12/04/24 19:47 12/04/24 19:51 12/04/24 19:58 Temperature Pulse Rate 124 H 124 H 124 H Respiratory Rate 20 20 20 Blood Pressure Pulse Oximetry 95 Oxygen Delivery Nasal Cannula Oxygen Flow Rate 5 Fraction of Inspired Oxygen 40 12/04/24 20:00 12/04/24 20:00 12/04/24 20:06 Temperature 97.9 F Pulse Rate 123 H 124 H Respiratory Rate 22 H Blood Pressure 102/54 L Pulse Oximetry 90 90 Oxygen Delivery Nasal Cannula Oxygen Flow Rate 5 Fraction of Inspired Oxygen 12/04/24 22:00 12/05/24 00:00 12/05/24 00:00 Temperature Pulse Rate 125 H 127 H Respiratory Rate Blood Pressure Pulse Oximetry 90 Oxygen Delivery Nasal Cannula Oxygen Flow Rate 5 Fraction of Inspired Oxygen 12/05/24 00:10 12/05/24 01:02 12/05/24 01:02 Temperature 98.4 F Pulse Rate 126 H 120 H 120 H Respiratory Rate 23 H 20 20 Blood Pressure 94/54 L Pulse Oximetry 90 91 Oxygen Delivery High Flow Nasal Cannula Oxygen Flow Rate 10 Fraction of Inspired Oxygen 12/05/24 01:07 12/05/24 01:14 12/05/24 02:00 Temperature Pulse Rate 125 H 130 H 130 H Respiratory Rate 20 Blood Pressure Pulse Oximetry 97 91 Oxygen Delivery High Flow Nasal Cannula High Flow Nasal Cannula Oxygen Flow Rate 5 10 Fraction of Inspired Oxygen 40 12/05/24 03:28 12/05/24 04:00 12/05/24 04:00 Temperature Pulse Rate 131 H Respiratory Rate Blood Pressure 106/64 106/52 L Pulse Oximetry 91 Oxygen Delivery Nasal Cannula Oxygen Flow Rate 5 Fraction of Inspired Oxygen 12/05/24 04:00 12/05/24 04:03 12/05/24 05:00 Temperature Pulse Rate 92 131 H Respiratory Rate Blood Pressure 110/50 L Pulse Oximetry Oxygen Delivery Oxygen Flow Rate Fraction of Inspired Oxygen 12/05/24 06:00 12/05/24 08:00 12/05/24 08:49 Temperature 98.3 F Pulse Rate 129 H 131 H Respiratory Rate 24 H Blood Pressure 108/61 Pulse Oximetry 92 88 L Oxygen Delivery High Flow Nasal Cannula Oxygen Flow Rate 10 Fraction of Inspired Oxygen 12/05/24 08:57 12/05/24 08:58 12/05/24 09:17 Temperature Pulse Rate 130 H 129 H Respiratory Rate Blood Pressure Pulse Oximetry 93 Oxygen Delivery High Flow Nasal Cannula Oxygen Flow Rate 12 Fraction of Inspired Oxygen 12/05/24 12:00 12/05/24 12:09 Temperature 98.5 F Pulse Rate 126 H 128 H Respiratory Rate 22 H Blood Pressure 110/57 L Pulse Oximetry 92 Oxygen Delivery Oxygen Flow Rate Fraction of Inspired Oxygen Intake/Output Intake/Output: Intake & Output 12/02/24 12/03/24 12/04/24 12/05/24 23:59 23:59 23:59 23:59 Intake Total 2240 1930 Output Total 1301 600 Balance 939 1330 Meds/Results Medications: Active Medications Generic Name Dose Route Start Last Admin Trade Name Freq PRN Reason Stop Dose Admin Acetaminophen 650 mg 12/04/24 20:38 Acetaminophen 325 Mg Tablet PO Q6H PRN fever or pain 1-3 Apixaban 5 mg 12/04/24 21:00 12/05/24 09:18 Apixaban 5 Mg Tablet PO 5 mg Q12HR HAJA Administration Atorvastatin Calcium 10 mg 12/04/24 21:00 12/04/24 21:37 Atorvastatin 10 Mg Tablet PO 10 mg HS HAJA Administration Benzonatate 100 mg 12/04/24 20:38 Benzonatate 100 Mg Capsule PO Q6H PRN cough Bisacodyl 10 mg 12/04/24 20:38 Bisacodyl 10 Mg Suppository RECTAL DAILY PRN constipation Dextrose 12.5 gm 12/04/24 20:40 Dextrose 50% 25 Gm/50 Ml Syringe IV PUSH PRN PRN Hypoglycemia Protocol Digoxin 500 mcg 12/05/24 09:00 12/05/24 09:17 Digoxin 250 Mcg Tablet PO 500 mcg DAILY HAJA Administration Fluticasone Propionate 1 spray 12/04/24 20:38 Fluticasone Propionate 0.05% Na Spr 16 Gm Btl (*Bkc) NASAL DAILY PRN allergy symptoms Glucagon 1 mg 12/04/24 20:40 Glucagon For Inj 1 Mg Vial IM PRN PRN Hypoglycemia Protocol Glucose 15 gm 12/04/24 20:40 Glucose Oral Gel 15 Gm Of Glucse In 37.5 Gm Tube PO PRN PRN Hypoglycemia Protocol Sodium Chloride 1,000 mls @ 100 mls/hr 12/04/24 15:35 12/05/24 02:58 Normal Saline Iv IV CONT 100 mls/hr .Q10H HAJA Administration Dextrose 1,000 mls @ 100 mls/hr 12/04/24 20:40 Dextrose 5% 1,000 Ml IVPB PRN PRN Hypoglycemia Protocol Insulin Aspart 2 - 5 units 12/05/24 08:00 12/05/24 12:09 Insulin Aspart (*Bkc) 100 Units/Ml SUB-Q Not Given TIDWM HAJA Protocol Insulin Aspart 1 - 2 units 12/04/24 21:00 12/04/24 21:37 Insulin Aspart (*Bkc) 100 Units/Ml SUB-Q Not Given HS HAJA Protocol Insulin Glargine 20 units 12/05/24 09:00 12/05/24 10:56 Insulin Glargine (*Bkc) 100 Units/Ml SUB-Q 20 units DAILY HAJA Administration Levalbuterol HCl 1.25 mg 12/05/24 14:00 Levalbuterol Neb 1.25 Mg/3 Ml INHALATION Q6HRT HAJA Magnesium Hydroxide 30 ml 12/04/24 20:38 Magnesium Hydroxide Susp 30 Ml Udc PO HS PRN constipation Melatonin 5 mg 12/04/24 21:00 12/04/24 21:37 Melatonin 5 Mg Tablet PO 5 mg HS HAJA Administration Metoprolol Tartrate 12.5 mg 12/05/24 12:00 12/05/24 12:09 Metoprolol Tartrate 12.5 Mg Tablet PO 12.5 mg Q6HR HAJA Administration Pantoprazole Sodium 40 mg 12/05/24 21:10 Pantoprazole 40 Mg Tablet PO Q12HR HAJA Perflutren Lipid Microsphere 0 ml 12/05/24 08:02 Perflutren Lipid Microspheres 1.5 Ml Vial Diluted To 10 Ml Total Volume IV PUSH 12/08/24 08:02 ONCE PRN adequate visualization Protocol Polyethylene Glycol 17 gm 12/04/24 20:38 Polyethylene Glycol 3350 17 Gm Powd.Pack PO BID PRN constipation Prednisone 40 mg 12/05/24 14:00 Prednisone 20 Mg Tablet PO Q8HR HAJA Tamsulosin HCl 0.4 mg 12/04/24 21:00 12/04/24 21:37 Tamsulosin Hcl 0.4 Mg Capsule PO 0.4 mg HS HAJA Administration Radiology Results: ITS Impressions Chest CT 12/04/24 10:59 IMPRESSION: Severe bilateral interstitial lung disease, as detailed above. Volume loss within the right hemithorax. Mediastinal lymphadenopathy. Findings suggesting prior granulomatous disease. Decreased attenuation within the periphery of the lateral margin of the spleen, possibly related to bolus timing in the absence of a history of trauma for which clinical correlation is needed. Labs Labs: Laboratory Results - last 24 hr 12/04/24 12/04/24 12/04/24 19:28 21:14 21:36 WBC RBC Hgb Hct MCV MCH MCHC RDW Plt Count MPV Immature Gran % (Auto) Neut % (Auto) Lymph % (Auto) [place] % (Auto) Eos % (Auto) Baso % (Auto) Lymph # (Auto) [place] # (Auto) Eos # (Auto) Baso # (Auto) Abs Immat Gran (auto) Absolute Neuts (auto) Absolute Nucleated RBC Nucleated RBC % PT INR APTT Sodium Potassium Chloride Carbon Dioxide Anion Gap BUN Creatinine Estim Creat Clear Calc Estimated GFR Glucose POC Capillary Glucose 130 H 123 H Hemoglobin A1c 7.5 H Lactic Acid Calcium Magnesium Total Bilirubin AST ALT Alkaline Phosphatase Total Protein Albumin TSH (Reflex) Digoxin < 0.5 L 12/05/24 12/05/24 12/05/24 03:51 07:13 08:54 WBC 5.2 RBC 3.81 L Hgb 10.6 L Hct 32.0 L MCV 84.0 MCH 27.8 MCHC 33.1 RDW 15.6 H Plt Count 150 MPV 9.0 Immature Gran % (Auto) 4.1 H Neut % (Auto) 51.6 Lymph % (Auto) 39.4 [place] % (Auto) 4.1 Eos % (Auto) 0.4 Baso % (Auto) 0.4 Lymph # (Auto) 2.03 [place] # (Auto) 0.2 Eos # (Auto) 0.0 Baso # (Auto) 0.0 Abs Immat Gran (auto) 0.21 H Absolute Neuts (auto) 2.7 Absolute Nucleated RBC 0.000 Nucleated RBC % 0.0 PT 16.3 H INR 1.3 APTT 30.4 Sodium 127 L Potassium 4.1 Chloride 99 Carbon Dioxide 24 Anion Gap 4 BUN 21 H Creatinine 1.18 Estim Creat Clear Calc 48 Estimated GFR 59 Glucose 70 POC Capillary Glucose 82 Hemoglobin A1c Lactic Acid 1.3 Calcium 7.1 L Magnesium 1.7 Total Bilirubin 0.6 AST 29 ALT 24 Alkaline Phosphatase 66 Total Protein 4.8 L Albumin 2.1 L TSH (Reflex) 1.400 Digoxin 12/05/24 10:59 WBC RBC Hgb Hct MCV MCH MCHC RDW Plt Count MPV Immature Gran % (Auto) Neut % (Auto) Lymph % (Auto) [place] % (Auto) Eos % (Auto) Baso % (Auto) Lymph # (Auto) [place] # (Auto) Eos # (Auto) Baso # (Auto) Abs Immat Gran (auto) Absolute Neuts (auto) Absolute Nucleated RBC Nucleated RBC % PT INR APTT Sodium Potassium Chloride Carbon Dioxide Anion Gap BUN Creatinine Estim Creat Clear Calc Estimated GFR Glucose POC Capillary Glucose 211 H Hemoglobin A1c Lactic Acid Calcium Magnesium Total Bilirubin AST ALT Alkaline Phosphatase Total Protein Albumin TSH (Reflex) Digoxin Quality VTE Prophylaxis VTE prophylaxis: pharmacologic ordered
--- NOTE | 2024-12-05 16:13 | PCPTNOTE ---
Per nursing, pt not medically safe to participate in therapy this date. Will follow.
--- NOTE | 2024-12-05 17:04 | PC.NURSE ---
Notified Dr. Cabello of continued tachycardia, HR 125-130. Cardiac consult ordered
--- NOTE | 2024-12-05 17:42 | ECG_ITS ---
Test Date: 2024-12-05 17:47:45 Measurements Intervals [place] Rate: 125 P: 0 ME: 0 QRS: 34 QRSD: 109 T: -35 QT: 215 QTc: 311 Interpretive Statements ATRIAL FLUTTER/TACHYCARDIA WITH RAPID VENTRICULAR RESPONSE INCOMPLETE RIGHT BUNDLE BRANCH BLOCK NONSPECIFIC ST & T-WAVE ABNORMALITY Electronically Signed On 12-06-2024 17:14:11 CDT by Zane Mckenna D.O
--- NOTE | 2024-12-05 18:07 | P.CONPL_ITS ---
Assessment and Plan Assessment and plan (1) Acute and chronic respiratory failure: Code(s): J96.20 - Acute and chronic respiratory failure, unspecified whether with hypoxia or hypercapnia Status: Acute Assessment and Plan: This patient developed respiratory failure in October, required oxygen at discharge after being in [facility] for about a week. He developed COVID with multifocal pneumonia in November 2024, has been on high flow most of this month. He was transferred to [facility] December 02, had steep increase in O2 requirement in the last 2 days. His CXR today shows severe interstitial fibrosis, possible pulmonary edema. the cardiac silhouette does not appear enlarged. He was on prednisone 20 mg at the time he was transferred to [facility] December 02. Due to his rapid deterioration, I am giving him high dose steroids for an exacerbation of pulmonary fibrosis, 250 mg IV Q 6 hours and Lasix 40 mg IV Q 12 hours. 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 He was on 2 L to 5 L in the last few days until he deteriorated yesterday, came to our ER. He is now requiring higher O2, on 40% ventimask, sat is 96%. (3) Dyspnea: Code(s): R06.00 - Dyspnea, unspecified Status: Acute Assessment and Plan: Has severe shortness worse with exertion. He developed pulmonary fibrosis with progressive hypoxemia after COVID, has had rehab, records are pending. Plan plan: Add high dose steroids for possible worsening fibrosis. Heart size is normal, exam with crackles, appears to have rapid increase in fibrosing process. Solumedrol 250 mg IV Q 6 hours. Lasix 40 mg IV bid. O2 to maintain saturation 90-94%. He has not required intubation at any point in the last 2 months. DVT prophylaxis. Obtain records from prior admissions; he has been treated by pulmonologists at several facilities over the last 2 months. Will follow with you. History of Present Illness History of Present Illness Consult date: 12/05/24 Requesting physician: Vickie Monzon APN-C Chief complaint: Tachycardia, Hypoxia, Failure To Thrive Narrative: pt was seen December 05, 2024 18:05 Room 204 Padmini and son Ethan help with history; his is David and their baby is present NEW: Zack Fofana is an 79-year-old man with ILD, no history of tobacco, no history of any lung disease until he developed shortness of breath in October 2024. He was at [facility] in [facility] admitted October 19 through October 27 related to shortness of breath, family thinks he had atrial fibrillation and this was controlled with metoprolol. Went home for a short amount of time, maybe a day, returned to [facility] in [place] with hemoptysis, and was diagnosed with multifocal pneumonia secondary to COVID during this admission. He developed atrial fibrillation. He had a transesophageal cardioversion and was back in sinus rhythm. He was on Eliquis 2.5 mg b.i.d.. He was transferred to an LTAC for weaning oxygen, He was diagnosed with pulmonary fibrosis. He was re-admitted about October 28; November 03 he was in a regular room at [facility], then was transferred to November 04 to ICU [facility], deteriorated. He was on high-flow but not intubated. During this admission, he was diagnosed with COVID. November 09 he was sent to [facility] in [facility], November 09 until December 02, was stabilized, November 23 he was on 60 liters/minute and 75% FiO2. He was transferred to [facility] on December 02 for rehab. He was able to have his O2 decreased to 2 L/minute. Thursday am, he woke up, was disoriented, his heart rate was high 120, his O2 sat was low in the low 80s, but his son said that this seemed to be a little worse. He came to [facility] with saturation 80% on 6-8 L. Chart from [facility] shows PMH including BPH, a fib, hyperlipidemia, multifocal pneumonia due to COVID. pulmonary hypertension, chronic respiratory failure, severe protein calorie malnutrition. At [facility], he was on 5 L with sat 96%. During the last week, heart rate was elevated at 120; family was not sure why. I did not see tachycardia documented in the notes from [facility]. His transfer medication list from [facility] showed that he was on prednisone 20 mg po daily, propafenone 225 mg q.8 hours for atrial fib., PMH : DM 8 years ago. No chronic medical problems otherwise per family. No surgeries. : 2 years in [place]. 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 He was never evaluated for asbestosis. He had no history of lung disease when he was working. He retired around age 63. 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 He had no lung issues until around [address] Elio Porter in [place]; had fluid on his lung in the nodule, the fluid resolved on its own so he did not need a thoracentesis, he went home, did not need pulmonary follow up. Tobacco: never smoker. Soc: He is to Padmini, they raised 4 children. He has not been at home over a few days since October due to his respiratory problems, and being in a hospital or LTAC/Rehab. Family hx: father at age 82, was a coal shooter. NICOLE Long shared images of his father's CXRs with the dates on his cell phone. I am looking at CXR 11/21/24 Brig[place], not as severe as this CXR today. November 09, 2024 [place]; not as abnormal as today, fibrosis visible, more aerated lungs in apices. * 12/05/2024 CXR : Cardiomediastinal silhouette is partially obscured. Diffuse interstitial thickening with a bilateral lower lobe, likely chronic. Small bilateral pleural effusions are also noted. Peripheral and bibasilar honeycombing is present. IMPRESSION: Redemonstration of severe interstitial lung disease, as detailed above. * 12/04/2024; chest CT: IMPRESSION: Severe bilateral interstitial lung disease, as detailed above. Volume loss within the right hemithorax. Mediastinal lymphadenopathy. Findings suggesting prior granulomatous disease. Decreased attenuation within the periphery of the lateral margin of the spleen, possibly related to bolus timing in the absence of a history of trauma for which clinical correlation is needed. * 12/04/2024 EKG; Sinus rhythm with incomplete right bundle-branch block, minimal ST depression. *12/05/2024, white blood cell count 5.2, hemoglobin 10.6, hematocrit 32%, platelets 150 k. Review of Systems 2 Review of Systems: All systems reviewed & are unremarkable except as noted in HPI and below PMFSH Past Medical History Medical History Hyponatremia Atrial fibrillation Dyspnea Impaired skin integrity Interstitial lung disease Hypotension Family History Family History Mother Cancer Father Heart failure Social History Social History Smoking status: Never smoker Alcohol intake: never Substance use: never Do You Feel Safe in your Home?: Yes Lack of Transportation: No Lack of Food: Never True Current Housing: I Have Housing Concerned About Future Housing: No Difficulty Paying Gas/Electric Bills: No Difficulty Paying for Meds: No Currently Unemployed: No Education: High School Diploma/GED Difficulty w/ Childcare or Family Care: No Spiritual care concerns: No Meds Home Medications and Allergies Home Medications ?Medication ?Instructions ?Recorded ?Confirmed ?Type acetaminophen 325 mg capsule 650 mg PO Q6H PRN fever or pain 12/04/24 12/04/24 History albuterol sulfate 2.5 mg/0.5 mL 2.5 mg inhalation Q8H SOB 12/04/24 12/04/24 History solution for nebulization albuterol sulfate 2.5 mg/3 mL 2.5 mg inhalation Q6H SOB 12/04/24 12/04/24 History (0.083 %) solution for nebulization apixaban 5 mg tablet (Eliquis) 5 mg PO Q12H 12/04/24 12/04/24 History atorvastatin 10 mg tablet 10 mg PO HS 12/04/24 12/04/24 History benzonatate 100 mg capsule 100 mg PO Q6H PRN cough 12/04/24 12/04/24 History bisacodyl 10 mg rectal suppository 10 mg RECTAL DAILY PRN constipation 12/04/24 12/04/24 History digoxin 250 mcg (0.25 mg) tablet 0.5 mg PO DAILY 12/04/24 12/04/24 History fluticasone propionate 50 1 spray intranasal DAILY PRN 12/04/24 12/04/24 History mcg/actuation nasal allergy symptoms spray,suspension insulin glargine 100 unit/mL 20 unit subcut DAILY 12/04/24 12/04/24 History subcutaneous solution (Lantus U-100 Insulin) insulin lispro 100 unit/mL 1 sliding scale dose subcut 12/04/24 12/04/24 History subcutaneous solution (Admelog .before meals U-100 Insulin lispro) magnesium hydroxide 400 mg/5 mL 30 ml PO HS PRN constipation 12/04/24 12/04/24 History oral suspension (Milk of Magnesia) melatonin 5 mg capsule 5 mg PO HS 12/04/24 12/04/24 History metformin 500 mg tablet 500 mg PO BID 12/04/24 12/04/24 History metoprolol tartrate 25 mg tablet 12.5 mg PO Q6H 12/04/24 12/04/24 History ondansetron HCl 4 mg tablet 4 mg PO Q6H PRN nausea and vomiting 12/04/24 12/04/24 History pantoprazole 40 mg tablet,delayed 40 mg PO BID 12/04/24 12/04/24 History release (Protonix) polyethylene glycol 3350 17 17 g PO BID PRN constipation 12/04/24 12/04/24 History gram/dose oral powder (ClearLax) prednisone 20 mg tablet 20 mg PO DAILY 12/04/24 12/04/24 History propafenone 225 mg tablet 225 mg PO Q8H 12/04/24 12/04/24 History tamsulosin 0.4 mg capsule 0.4 mg PO HS 12/04/24 12/04/24 History Allergies Allergy/AdvReac Type Severity Reaction Status Date / Time No Known Allergies Allergy Verified 12/04/24 15:01 Vital Signs Vital Signs - 24 hr 12/04/24 19:47 12/04/24 19:51 12/04/24 19:58 Temperature Pulse Rate 124 H 124 H 124 H Respiratory Rate 20 20 20 Blood Pressure Pulse Oximetry 95 Oxygen Delivery Nasal Cannula Oxygen Flow Rate 5 Fraction of Inspired Oxygen 40 12/04/24 20:00 12/04/24 20:00 12/04/24 20:06 Temperature 36.6 C Pulse Rate 123 H 124 H Respiratory Rate 22 H Blood Pressure 102/54 L Pulse Oximetry 90 90 Oxygen Delivery Nasal Cannula Oxygen Flow Rate 5 Fraction of Inspired Oxygen 12/04/24 22:00 12/05/24 00:00 12/05/24 00:00 Temperature Pulse Rate 125 H 127 H Respiratory Rate Blood Pressure Pulse Oximetry 90 Oxygen Delivery Nasal Cannula Oxygen Flow Rate 5 Fraction of Inspired Oxygen 12/05/24 00:10 12/05/24 01:02 12/05/24 01:02 Temperature 36.9 C Pulse Rate 126 H 120 H 120 H Respiratory Rate 23 H 20 20 Blood Pressure 94/54 L Pulse Oximetry 90 91 Oxygen Delivery High Flow Nasal Cannula Oxygen Flow Rate 10 Fraction of Inspired Oxygen 12/05/24 01:07 12/05/24 01:14 12/05/24 02:00 Temperature Pulse Rate 125 H 130 H 130 H Respiratory Rate 20 Blood Pressure Pulse Oximetry 97 91 Oxygen Delivery High Flow Nasal Cannula High Flow Nasal Cannula Oxygen Flow Rate 5 10 Fraction of Inspired Oxygen 40 12/05/24 03:28 12/05/24 04:00 12/05/24 04:00 Temperature Pulse Rate 131 H Respiratory Rate Blood Pressure 106/64 106/52 L Pulse Oximetry 91 Oxygen Delivery Nasal Cannula Oxygen Flow Rate 5 Fraction of Inspired Oxygen 12/05/24 04:00 12/05/24 04:03 12/05/24 05:00 Temperature Pulse Rate 92 131 H Respiratory Rate Blood Pressure 110/50 L Pulse Oximetry Oxygen Delivery Oxygen Flow Rate Fraction of Inspired Oxygen 12/05/24 06:00 12/05/24 08:00 12/05/24 08:49 Temperature 36.8 C Pulse Rate 129 H 131 H Respiratory Rate 24 H Blood Pressure 108/61 Pulse Oximetry 92 88 L Oxygen Delivery High Flow Nasal Cannula Oxygen Flow Rate 10 Fraction of Inspired Oxygen 12/05/24 08:57 12/05/24 08:58 12/05/24 09:17 Temperature Pulse Rate 130 H 129 H Respiratory Rate Blood Pressure Pulse Oximetry 93 Oxygen Delivery High Flow Nasal Cannula Oxygen Flow Rate 12 Fraction of Inspired Oxygen 12/05/24 12:00 12/05/24 12:09 12/05/24 13:40 Temperature 36.9 C Pulse Rate 126 H 128 H 126 H Respiratory Rate 22 H 20 Blood Pressure 110/57 L Pulse Oximetry 92 Oxygen Delivery Oxygen Flow Rate Fraction of Inspired Oxygen 12/05/24 13:46 12/05/24 16:00 12/05/24 17:23 Temperature 36.4 C Pulse Rate 106 H 121 H 130 H Respiratory Rate 20 22 H Blood Pressure 109/61 Pulse Oximetry 96 Oxygen Delivery Oxygen Flow Rate Fraction of Inspired Oxygen Exam 2 Narrative: GEN: Alert, oriented, can nod to questions. He is on HEENT: pupils are equal, EOMI, symmetrical face; oral membranes moist, Mallampati II airway NECK: Trachea is midline CHEST: Equal air entry, symmetric excursion, clear breath sounds CV: Regular S1S2 no m/g/r ABD : (+) bowel sounds Extremities : no clubbing, cyanosis, edema PSYCH: normal thought and speech, gait is normal Results Laboratory Findings 12/06/24 04:04 12/06/24 04:04 ABG, PT/INR, D-dimer: PT/INR, D-dimer PT 16.3 Seconds (11.1-14.7) H 12/05/24 03:51 INR 1.3 12/05/24 03:51 Abnormal lab findings: Abnormal Labs 12/04/24 12/04/24 12/04/24 08:41 19:28 21:14 RBC 3.66 L Hgb 10.4 L Hct 30.3 L RDW 15.2 H Plt Count 126 L Immature Gran % (Auto) 4.2 H Neut % (Auto) 43.0 L Lymph % (Auto) 48.4 H Abs Immat Gran (auto) 0.22 H PT 15.4 H Sodium 123 L Chloride 96 L Anion Gap 2 L BUN 27 H Creatinine 1.40 H Estimated GFR 49 L POC Capillary Glucose 130 H Hemoglobin A1c 7.5 H Calcium 7.1 L Total Protein 4.8 L Albumin 2.2 L Urine Protein 1+ H Urine Ketones Trace H Urine Bilirubin 1+ H Digoxin < 0.5 L 12/04/24 12/05/24 12/05/24 21:36 03:51 10:59 RBC 3.81 L Hgb 10.6 L Hct 32.0 L RDW 15.6 H Plt Count Immature Gran % (Auto) 4.1 H Neut % (Auto) Lymph % (Auto) Abs Immat Gran (auto) 0.21 H PT 16.3 H Sodium 127 L Chloride Anion Gap BUN 21 H Creatinine Estimated GFR POC Capillary Glucose 123 H 211 H Hemoglobin A1c Calcium 7.1 L Total Protein 4.8 L Albumin 2.1 L Urine Protein Urine Ketones Urine Bilirubin Digoxin 12/05/24 16:11 RBC Hgb Hct RDW Plt Count Immature Gran % (Auto) Neut % (Auto) Lymph % (Auto) Abs Immat Gran (auto) PT Sodium Chloride Anion Gap BUN Creatinine Estimated GFR POC Capillary Glucose 184 H Hemoglobin A1c Calcium Total Protein Albumin Urine Protein Urine Ketones Urine Bilirubin Digoxin
[2024-12-05] MEDS: dilTIAZem 100 MG/100 ML 100 MG/100 ML BAG IV CONT (19:42)
[2024-12-05] MEDS: TAMSULOSIN HCL 0.4 MG CAPSULE PO (20:15)
[2024-12-05] MEDS: ATORVASTATIN 10 MG TABLET PO (20:15)
[2024-12-05] MEDS: PANTOPRAZOLE 40 MG TABLET PO (20:15)
[2024-12-05] MEDS: MELATONIN 5 MG TABLET PO (20:16)
[2024-12-05] MEDS: FUROSEMIDE INJ 40 MG/4 ML VIAL IV PUSH (22:02)
[2024-12-06] VITALS (32 sets, daily range): BP systolic 85–111; BP diastolic 40–55; PULSE 64–127; RESP 20–32; TEMP 35.9–36.9; O2SAT 85–99
[2024-12-06] MEDS: METOPROLOL TARTRATE 12.5 MG TABLET PO ×4 (00:05→17:06)
--- NOTE | 2024-12-06 03:33 | ECG_ITS ---
Test Date: 2024-12-06 03:51:28 Measurements Intervals [place] Rate: 108 P: 0 [place]: 0 QRS: 28 QRSD: 113 T: -27 QT: 349 QTc: 470 Interpretive Statements ATRIAL FIBRILLATION WITH RAPID VENTRICULAR RESPONSE INTRAVENTRICULAR CONDUCTION DELAY NONSPECIFIC ST & T-WAVE ABNORMALITY Electronically Signed On 12-06-2024 17:22:57 CDT by Zane Mckenna D.O
[2024-12-06 04:23] LABS: Hematocrit 29.5 % (42.0-52.0); Hemoglobin 10.1 g/dL (14.0-18.0); Immature Granulocyte Percent A 4.7 % (0-0.5); Lymphocytes Absolute Auto 1.20 K/mm3 (0.9-3.2); Mean Corpuscular HGB Conc 34.2 g/dl (32-36); Mean Corpuscular Hemoglobin 28.2 pg (26-34); Mean Corpuscular Volume 82.4 fl (80-100); Nucleated Red Blood Cells Absolute Auto 0.000 K/mm3 (0.0-0.012); Nucleated Red Blood Cells Perc 0.0 % (0.0-0.2); Platelet Count Result 141 k/mm3 (150-375); Red Blood Count 3.58 M/mm3 (4.6-6.20); White Blood Count 4.0 K/mm3 (4.5-10.0)
[2024-12-06 04:51] LABS: Alanine Aminotransferase 23 U/L (6-50); Albumin Level 2.3 g/dL (3.5-5.1); Alkaline Phosphatase 69 U/L (38-126); Anion Gap 6 mmol/L (4-12); Aspartate Amino Transferase 25 U/L (17-59); Bilirubin,Total 0.7 mg/dL (0.2-1.3); Blood Urea Nitrogen 24 mg/dL (9-20); Calcium 7.2 mg/dL (8.4-10.2); Carbon Dioxide 21 mmol/L (22-30); Chloride 95 mmol/L (98-107); Estimated CRCL calculation 44 ml/min; Estimated Glomerular Filt Rate 53; Glucose 221 mg/dL (65-110); Magnesium 1.7 mg/dL (1.6-2.3); Potassium 4.4 mmol/L (3.4-5.0); Sodium 122 mmol/L (137-145); Total Protein 4.8 g/dL (6.3-8.2)
[2024-12-06] MEDS: INSULIN ASPART (*BKC) 100 UNITS/ML SUB-Q ×3 (08:54→16:45)
[2024-12-06] MEDS: PANTOPRAZOLE 40 MG TABLET PO ×2 (08:55→20:30)
[2024-12-06] MEDS: FUROSEMIDE INJ 40 MG/4 ML VIAL IV PUSH ×2 (08:55→16:45)
[2024-12-06] MEDS: DIGOXIN 250 MCG TABLET 500 MCG PO (08:55)
[2024-12-06] MEDS: APIXABAN 5 MG TABLET PO ×2 (08:55→20:30)
[2024-12-06] MEDS: INSULIN GLARGINE (*BKC) 100 UNITS/ML 20 UNITS SUB-Q (08:56)
--- NOTE | 2024-12-06 08:58 | P.CONCA_ITS ---
Assessment and Plan Assessment and plan (1) Atrial fibrillation: Code(s): I48.91 - Unspecified atrial fibrillation Status: Chronic Assessment and Plan: He has paroxysmal atrial fibrillation. Now has atrial fibrillation with rapid ventricular response in the setting of respiratory failure. He takes propafenone, digoxin, and metoprolol as an outpatient and is anticoagulated with apixaban. Currently rate controlled on metoprolol and diltiazem. * Continue metoprolol, but can shift from metoprolol tartrate to succinate for dosing convenience * Will shift to p.o. diltiazem and d/c diltiazem drip * Would not resume propafenone as he is not maintaining sinus rhythm anyhow. Also do not see a need for digoxin. * Continue anticoagulation with apixaban 5mg b.i.d. * Reportedly does not follow with a collar baster as an outpatient. He can follow up in our office. Cardiology will sign off please call with questions. History of Present Illness History of Present Illness Consult date/time: 12/06/24 08:58 Requesting physician: Oh Cabello MD Consult reason: atrial fibrillation Reason For Visit: Tachycardia, Hypoxia, Failure To Thrive Narrative: Zack Fofana is an 79 year old male with interstitial lung disease and atrial fibrillation admitted with hypoxia and respiratory distress. Cardiology is consulted for atrial fibrillation. Patient has history of paroxysmal atrial fibrillation and is on propafenone, digoxin, and metoprolol as an outpatient, though reportedly he does not follow with a collar baster. He was found to be in atrial fibrillation with rapid ventricular response on admission and was placed on a diltiazem drip. his heart rate is now controlled. He does not report any palpitations, chest pain. He is chronically anticoagulated with apixaban. [facility] Past Medical History Medical History Hyponatremia Atrial fibrillation Dyspnea Impaired skin integrity Interstitial lung disease Hypotension Family History Family History Mother Cancer Father Heart failure Social History Social History Smoking status: Never smoker Alcohol intake: never Substance use: never Do You Feel Safe in your Home?: Yes Lack of Transportation: No Lack of Food: Never True Current Housing: I Have Housing Concerned About Future Housing: No Difficulty Paying Gas/Electric Bills: No Difficulty Paying for Meds: No Currently Unemployed: No Education: High School Diploma/GED Difficulty w/ Childcare or Family Care: No Spiritual care concerns: No Meds Home Medications and Allergies Home Medications ?Medication ?Instructions ?Recorded ?Confirmed ?Type acetaminophen 325 mg capsule 650 mg PO Q6H PRN fever or pain 12/04/24 12/04/24 History albuterol sulfate 2.5 mg/0.5 mL 2.5 mg inhalation Q8H SOB 12/04/24 12/04/24 History solution for nebulization albuterol sulfate 2.5 mg/3 mL 2.5 mg inhalation Q6H SOB 12/04/24 12/04/24 History (0.083 %) solution for nebulization apixaban 5 mg tablet (Eliquis) 5 mg PO Q12H 12/04/24 12/04/24 History atorvastatin 10 mg tablet 10 mg PO HS 12/04/24 12/04/24 History benzonatate 100 mg capsule 100 mg PO Q6H PRN cough 12/04/24 12/04/24 History bisacodyl 10 mg rectal suppository 10 mg RECTAL DAILY PRN constipation 12/04/24 12/04/24 History digoxin 250 mcg (0.25 mg) tablet 0.5 mg PO DAILY 12/04/24 12/04/24 History fluticasone propionate 50 1 spray intranasal DAILY PRN 12/04/24 12/04/24 History mcg/actuation nasal allergy symptoms spray,suspension insulin glargine 100 unit/mL 20 unit subcut DAILY 12/04/24 12/04/24 History subcutaneous solution (Lantus U-100 Insulin) insulin lispro 100 unit/mL 1 sliding scale dose subcut 12/04/24 12/04/24 History subcutaneous solution (Admelog .before meals U-100 Insulin lispro) magnesium hydroxide 400 mg/5 mL 30 ml PO HS PRN constipation 12/04/24 12/04/24 History oral suspension (Milk of Magnesia) melatonin 5 mg capsule 5 mg PO HS 12/04/24 12/04/24 History metformin 500 mg tablet 500 mg PO BID 12/04/24 12/04/24 History metoprolol tartrate 25 mg tablet 12.5 mg PO Q6H 12/04/24 12/04/24 History ondansetron HCl 4 mg tablet 4 mg PO Q6H PRN nausea and vomiting 12/04/24 12/04/24 History pantoprazole 40 mg tablet,delayed 40 mg PO BID 12/04/24 12/04/24 History release (Protonix) polyethylene glycol 3350 17 17 g PO BID PRN constipation 12/04/24 12/04/24 History gram/dose oral powder (ClearLax) prednisone 20 mg tablet 20 mg PO DAILY 12/04/24 12/04/24 History propafenone 225 mg tablet 225 mg PO Q8H 12/04/24 12/04/24 History tamsulosin 0.4 mg capsule 0.4 mg PO HS 12/04/24 12/04/24 History Allergies Allergy/AdvReac Type Severity Reaction Status Date / Time No Known Allergies Allergy Verified 12/04/24 15:01 Vital Signs Vital Signs - 24 hr 12/05/24 09:17 12/05/24 10:00 12/05/24 12:00 Temperature 36.9 C Pulse Rate 129 H 98 126 H Respiratory Rate 22 H Blood Pressure 110/57 L Pulse Oximetry 92 Oxygen Delivery Oxygen Flow Rate 12/05/24 12:00 12/05/24 12:09 12/05/24 13:40 Temperature Pulse Rate 128 H 128 H 126 H Respiratory Rate 20 Blood Pressure Pulse Oximetry Oxygen Delivery Oxygen Flow Rate 12/05/24 13:46 12/05/24 14:00 12/05/24 16:00 Temperature 36.4 C Pulse Rate 106 H 126 H 121 H Respiratory Rate 20 22 H Blood Pressure 109/61 Pulse Oximetry 96 Oxygen Delivery Oxygen Flow Rate 12/05/24 16:00 12/05/24 17:00 12/05/24 17:23 Temperature Pulse Rate 129 H 130 H Respiratory Rate Blood Pressure Pulse Oximetry 93 Oxygen Delivery Oxygen Flow Rate 14 12/05/24 18:00 12/05/24 19:42 12/05/24 19:45 Temperature 36.5 C Pulse Rate 129 H 129 H 129 H Respiratory Rate 26 H Blood Pressure 107/61 107/61 Pulse Oximetry 93 Oxygen Delivery Oxygen Flow Rate 12/05/24 19:57 12/05/24 20:00 12/05/24 20:00 Temperature Pulse Rate 129 H Respiratory Rate Blood Pressure Pulse Oximetry 88 L 90 Oxygen Delivery High Flow Nasal Cannula High Flow Nasal Cannula Oxygen Flow Rate 12 15 12/05/24 20:02 12/05/24 20:12 12/05/24 21:09 Temperature Pulse Rate 125 H 125 H Respiratory Rate 22 H 22 H Blood Pressure Pulse Oximetry 87 L Oxygen Delivery High Flow Nasal Cannula Oxygen Flow Rate 15 12/05/24 21:26 12/05/24 22:00 12/05/24 22:00 Temperature Pulse Rate 113 H 127 H Respiratory Rate 20 Blood Pressure 97/55 L 97/55 L 97/55 L Pulse Oximetry 87 L 90 Oxygen Delivery High Flow Nasal Cannula Oxygen Flow Rate 15 12/05/24 22:00 12/05/24 22:57 12/05/24 22:59 Temperature Pulse Rate 125 H Respiratory Rate Blood Pressure 105/52 L Pulse Oximetry 90 Oxygen Delivery High Flow Nasal Cannula Oxygen Flow Rate 12 12/06/24 00:00 12/06/24 00:00 12/06/24 00:00 Temperature 36.9 C Pulse Rate 118 H 119 H Respiratory Rate 22 H Blood Pressure 98/50 L 98/50 L Pulse Oximetry 91 91 Oxygen Delivery High Flow Nasal Cannula Oxygen Flow Rate 15 12/06/24 00:00 12/06/24 00:05 12/06/24 01:57 Temperature Pulse Rate 127 H 127 H 125 H Respiratory Rate 22 H Blood Pressure Pulse Oximetry Oxygen Delivery Oxygen Flow Rate 12/06/24 02:00 12/06/24 02:00 12/06/24 02:00 Temperature Pulse Rate 98 96 98 Respiratory Rate Blood Pressure 97/43 L 97/43 L Pulse Oximetry Oxygen Delivery Oxygen Flow Rate 12/06/24 02:09 12/06/24 03:52 12/06/24 04:00 Temperature 36.5 C Pulse Rate 125 H 86 92 Respiratory Rate 22 H 24 H Blood Pressure 101/44 L Pulse Oximetry 92 Oxygen Delivery Oxygen Flow Rate 12/06/24 04:00 12/06/24 04:00 12/06/24 06:00 Temperature Pulse Rate 92 88 Respiratory Rate Blood Pressure 101/44 L 94/55 L Pulse Oximetry 90 Oxygen Delivery High Flow Nasal Cannula Oxygen Flow Rate 15 12/06/24 06:00 12/06/24 06:00 12/06/24 06:04 Temperature Pulse Rate 88 88 99 Respiratory Rate Blood Pressure 94/55 L Pulse Oximetry Oxygen Delivery Oxygen Flow Rate 12/06/24 08:00 Temperature 35.9 C L Pulse Rate 93 Respiratory Rate 28 H Blood Pressure 92/54 L Pulse Oximetry 86 L Oxygen Delivery Oxygen Flow Rate Exam 2 Const: General: comfortable, no acute distress, alert and awake O rientation/consciousness: patient oriented x3 HENMT: Head: normal to inspection Eyes: General: appearance normal, both eyes and all related structures P upils: Equal, round and reactive pupils present Neck: Neck: normal visual inspection, supple and no JVD Carotids: normal carotid upstroke Resp: Auscultation: crackles and diminished lung sounds Cardio: Rate: regular rate Rhythm: abnormal rhythm irregularly irregular Heart sounds: S1 normal heart sound present, S2 normal heart sound present and no murmurs GI: Auscultation: normal bowel sounds Skin: General skin exam: normal color Neuro: General: patient oriented x3 Cranial nerves: Yes Equal, round and reactive pupils present Extrem: General: normal to inspection Psych: Appearance: grossly normal Mental Status: mental status grossly normal Results Labs and Meds 12/06/24 04:04 12/06/24 04:04 Lab results: Cardiac Enzymes 12/06/24 Range/Units 04:04 AST 25 (17-59) U/L CBC 12/06/24 Range/Units 04:04 WBC 4.0 L (4.5-10.0) K/mm3 RBC 3.58 L (4.6-6.20) M/mm3 Hgb 10.1 L (14.0-18.0) g/dL Hct 29.5 L (42.0-52.0) % Plt Count 141 L (150-375) k/mm3 Lymph # (Auto) 1.20 (0.9-3.2) K/mm3 [place] # (Auto) 0.1 (0.1-0.6) K/mm3 Eos # (Auto) 0.0 (0-0.3) K/mm3 Baso # (Auto) 0.0 (0.0-0.1) K/mm3 Comprehensive Metabolic Panel 12/06/24 Range/Units 04:04 Sodium 122 L (137-145) mmol/L Potassium 4.4 (3.4-5.0) mmol/L Chloride 95 L (98-107) mmol/L Carbon Dioxide 21 L (22-30) mmol/L BUN 24 H (9-20) mg/dL Creatinine 1.30 (0.7-1.3) mg/dL Glucose 221 H (65-110) mg/dL Calcium 7.2 L (8.4-10.2) mg/dL AST 25 (17-59) U/L ALT 23 (6-50) U/L Alkaline Phosphatase 69 (38-126) U/L Total Protein 4.8 L (6.3-8.2) g/dL Albumin 2.3 L (3.5-5.1) g/dL Intake and Output 12/05/24 12/06/24 12/06/24 23:59 07:59 15:59 Intake Total 251.5 340 480 Output Total 400 1600 Balance -148.5 -1260 480 Intake: IV 11.5 40 dilTIAZem 100 MG/100 ML 100 mg 11.5 40 In 100 ml @ 5 MG/HR 5 mls/hr IV CONT .Q20H [facility] Rx#:[id number] Oral 240 300 480 Output: Urine 600 Catheter Urine 400 1000 External/Condom 400 1000 Other: Number of Bowel Movements Today 2 Patient Weight 12/06/24 23:59 Weight 83.4 kg
--- NOTE | 2024-12-06 09:21 | PCPTNOTE ---
spoke with OT, pt having difficulty with O2 levels, OT reported RN asked to hold PT this morning, will follow
[2024-12-06 09:33] LABS: Alveolar/Arterial O2 Gradient 485.8 mmHg; Fractional Inspired Oxygen 80 %; HCO3 ABG 21.5 mEq/l (22.0-26.0); Oxygen Content ABG 13.2 %vol (16.0-22.0); Oxygen Saturation ABG 88.8 % (95.0-100.0); PCO2 ABG 31.3 mmHg (35.0-45.0); PO2 ABG 51.7 mmHg (80.0-100.0); PO2 FiO2 Ratio Arterial Blood 0.65 %
[2024-12-06 09:34] LABS: Modified Allen's Test Pass; Site Drawn RIGHT RADIAL
[2024-12-06 09:35] LABS: Liters per Minute 35.0 LPM
[2024-12-06] MEDS: dilTIAZem 100 MG/100 ML 100 MG/100 ML BAG IV CONT (14:14)
[2024-12-06] MEDS: INSULIN GLARGINE (*BKC) 100 UNITS/ML 10 UNITS SUB-Q (17:06)
--- NOTE | 2024-12-06 18:34 | P.PNIM_ITS ---
Progress Note: A&P Assessment and Plan (1) Hypotension: Code(s): I95.9 - Hypotension, unspecified Status: Acute Assessment and Plan: * Pt's BP has been running soft 87-109/48-91. * Continue Telemetry no Pnuemomnia on chest x ray titrate home meds with clinical course Continue IVF and monitor closely (2) Dyspnea: Code(s): R06.00 - Dyspnea, unspecified Status: Acute Assessment and Plan: * Likely acute on chronic and likely invoked by the decreased baseline supplemental oxygen at care home. * Continue pt's baseline 5L-6L per [place] supplemental oxygen. * Rhonchi present on physical exam. Will order Duonebs Q6 hrs scheduled and prn Albuterol nebs. * Continue IV Steroid * Consulted Pulmonology (3) Hyponatremia: Code(s): E87.1 - Hypo-osmolality and hyponatremia Status: Acute Assessment and Plan: * Sodium is 127 * with rehydration * urine studies pending (4) Impaired skin integrity: Code(s): R23.9 - Unspecified skin changes Status: Acute Assessment and Plan: * Wounds noted to Coccyx and buttocks. Pics taken by nurse. * Consult Wound nurse * Offload weight on affected area. * For rash around abdomen, suggest not wearing a depends/adult brief. (5) Interstitial lung disease: Code(s): J84.9 - Interstitial pulmonary disease, unspecified Status: Chronic Assessment and Plan: contineu above care (6) Atrial fibrillation: Code(s): I48.91 - Unspecified atrial fibrillation Status: Chronic Assessment and Plan: * Unable to use Beta theresa at this time secondary to Hypotension as noted in #1. * Continue Eliquis * restart MEtoprolol adn Digoxin adn monitor blood pressure * EHCO pending Plan patient with history of ILD most likely 2/2 COVID infection he had recently and possible environmental chemical exposure, patient is seen by his helpdesk manager patient is treated with high dose steroids and loading dose of methylprednisone 250mg IV q6 for 1 day and taper it down to 125mg q8, patient stats feeling better compared to when he arrived, patient has history of diabetes his blood sugars are running high due to steroids, will monitor and correct it, his is present in the room. DVT prohylaxis on Eliquis Subjective Date/time seen: 12/06/24 18:34 Interval history: Dyspnea H&P-Narrative: This is an 79 year male patient with past medical history significant pulmonary fibrosis status post COVID diagnosis on 6 L oxygen, atrial fibrillation on and control metoprolol who currently resides at [facility] Where he is currently at for rehabilitation. Prior to going to [facility], he was in the hospital at [place] and transferred to [place] and ultimately transferred to [facility]. Pt alert, oriented x4 and without any acute complaint. He was sent to the ER with complaints of hypoxia and dyspnea after nursing service found him with low oxygen sats in his room, noted to be on 2L. He was sent to the ER where he required a few moments of BiPap and has ultimately recovered to his baseline on 5L Supplemental oxygen. His EKG upon arrival to the ER showed a variable rate/rhythm that was either ST or A-flutter/tach with rates from low 100s-120s. Although he has Metoprolol ordered for rate control as he does have a hx of A- fib, it was not given as pt's BP has been on the lower side. Pt has no respiratory complaints and no concerns of CP. His only complaint is pain in his coccyx region from breakdown. In the emergency room fall was performed EKG showing either sinus tachycardia versus a flutter with RVR, however unable to be controlled with beta blockade as patient's blood pressure has been low. CT of the chest showing severe bilateral interstitial lung disease with mediastinal lymphadenopathy present. CBC unremarkable with WBC is 5.3 and intact H&H. Metabolic panel showing hyponatremia at 1:23 a.m.. Renal function impaired with creatinine and BUN of 1.4/27, however we do not know patient's baseline as there is none historical in our system. Glucose noted to be 72. Urinalysis was unremarkable and coags are normal. ER physician was concerned for potential dehydration component contributing to patient's tachycardia. He was given a Liter of LR and albuterol nebulizer. It should be noted that we do not have any historical information of PMH on this pt in our EMR system for comparison and trending purposes. He tells me that he does not see a regular Rn Clinical Documentation Specialist for his ILD. He also does not see a Stranding Machine Operator Helper despite his hx of A-fib. patient with history of ILD most likely 2/2 COVID infection he had recently and possible environmental chemical exposure, patient is seen by his helpdesk manager patient is treated with high dose steroids and loading dose of methylprednisone 250mg IV q6 for 1 day and taper it down to 125mg q8, patient stats feeling better compared to when he arrived, patient has history of diabetes his blood sugars are running high due to steroids, will monitor and correct it, his is present in the room. Review of Systems Review of Systems: All systems reviewed & are unremarkable except as noted in HPI and below Exam Narrative: Patient is comfortable, NAD HEENT: eyes are clear and none icteric LUNGS: Bilateral fair air entry with harsh breath sounds HEART: RR S1S2 ABD: BS+, Soft and nontender Lower extremities: no edema SKIN: nonjaundiced Neuro: grossly intact. Objective Data Vital Signs Vital Signs: Vital Signs - 24 hr 12/05/24 19:42 12/05/24 19:45 12/05/24 19:57 Temperature 36.5 C Pulse Rate 129 H 129 H Respiratory Rate 26 H Blood Pressure 107/61 107/61 Pulse Oximetry 93 88 L Oxygen Delivery High Flow Nasal Cannula Oxygen Flow Rate 12 Fraction of Inspired Oxygen 12/05/24 20:00 12/05/24 20:00 12/05/24 20:02 Temperature Pulse Rate 129 H 125 H Respiratory Rate 22 H Blood Pressure Pulse Oximetry 90 Oxygen Delivery High Flow Nasal Cannula Oxygen Flow Rate 15 Fraction of Inspired Oxygen 12/05/24 20:12 12/05/24 21:09 12/05/24 21:26 Temperature Pulse Rate 125 H Respiratory Rate 22 H Blood Pressure 97/55 L Pulse Oximetry 87 L 87 L Oxygen Delivery High Flow Nasal Cannula High Flow Nasal Cannula Oxygen Flow Rate 15 15 Fraction of Inspired Oxygen 12/05/24 22:00 12/05/24 22:00 12/05/24 22:00 Temperature Pulse Rate 113 H 127 H 125 H Respiratory Rate 20 Blood Pressure 97/55 L 97/55 L Pulse Oximetry 90 Oxygen Delivery Oxygen Flow Rate Fraction of Inspired Oxygen 12/05/24 22:57 12/05/24 22:59 12/06/24 00:00 Temperature 36.9 C Pulse Rate 118 H Respiratory Rate 22 H Blood Pressure 105/52 L 98/50 L Pulse Oximetry 90 91 Oxygen Delivery High Flow Nasal Cannula Oxygen Flow Rate 12 Fraction of Inspired Oxygen 12/06/24 00:00 12/06/24 00:00 12/06/24 00:00 Temperature Pulse Rate 119 H 127 H Respiratory Rate Blood Pressure 98/50 L Pulse Oximetry 91 Oxygen Delivery High Flow Nasal Cannula Oxygen Flow Rate 15 Fraction of Inspired Oxygen 12/06/24 00:05 12/06/24 01:57 12/06/24 02:00 Temperature Pulse Rate 127 H 125 H 98 Respiratory Rate 22 H Blood Pressure 97/43 L Pulse Oximetry Oxygen Delivery Oxygen Flow Rate Fraction of Inspired Oxygen 12/06/24 02:00 12/06/24 02:00 12/06/24 02:09 Temperature Pulse Rate 96 98 125 H Respiratory Rate 22 H Blood Pressure 97/43 L Pulse Oximetry Oxygen Delivery Oxygen Flow Rate Fraction of Inspired Oxygen 12/06/24 03:52 12/06/24 04:00 12/06/24 04:00 Temperature 36.5 C Pulse Rate 86 92 Respiratory Rate 24 H Blood Pressure 101/44 L Pulse Oximetry 92 90 Oxygen Delivery High Flow Nasal Cannula Oxygen Flow Rate 15 Fraction of Inspired Oxygen 12/06/24 04:00 12/06/24 06:00 12/06/24 06:00 Temperature Pulse Rate 92 88 88 Respiratory Rate Blood Pressure 101/44 L 94/55 L Pulse Oximetry Oxygen Delivery Oxygen Flow Rate Fraction of Inspired Oxygen 12/06/24 06:00 12/06/24 06:04 12/06/24 07:45 Temperature Pulse Rate 88 99 Respiratory Rate Blood Pressure 94/55 L Pulse Oximetry 85 L Oxygen Delivery High Flow Nasal Cannula Oxygen Flow Rate 12 Fraction of Inspired Oxygen 12/06/24 08:00 12/06/24 08:00 12/06/24 08:00 Temperature 35.9 C L Pulse Rate 93 82 Respiratory Rate 28 H 22 H Blood Pressure 92/54 L Pulse Oximetry 86 L 95 95 Oxygen Delivery High Flow Therapy with Na High Flow Nasal Cannula Oxygen Flow Rate 45 15 Fraction of Inspired Oxygen 85 85 12/06/24 08:00 12/06/24 08:00 12/06/24 08:35 Temperature Pulse Rate 87 93 Respiratory Rate Blood Pressure 92/54 L Pulse Oximetry Oxygen Delivery High Flow Nasal Cannula Oxygen Flow Rate 35 Fraction of Inspired Oxygen 12/06/24 08:55 12/06/24 09:20 12/06/24 10:00 Temperature Pulse Rate 95 82 Respiratory Rate 22 H Blood Pressure 93/49 L Pulse Oximetry Oxygen Delivery Oxygen Flow Rate Fraction of Inspired Oxygen 12/06/24 10:00 12/06/24 10:00 12/06/24 12:00 Temperature Pulse Rate 87 87 96 Respiratory Rate 26 H Blood Pressure 93/49 L 93/48 L Pulse Oximetry 99 Oxygen Delivery Oxygen Flow Rate Fraction of Inspired Oxygen 12/06/24 12:00 12/06/24 12:00 12/06/24 12:00 Temperature Pulse Rate 96 80 96 Respiratory Rate 32 H Blood Pressure 93/48 L Pulse Oximetry 97 Oxygen Delivery High Flow Nasal Cannula Oxygen Flow Rate 45 Fraction of Inspired Oxygen 85 12/06/24 13:29 12/06/24 14:00 12/06/24 14:00 Temperature Pulse Rate 86 82 82 Respiratory Rate Blood Pressure 103/52 L 103/52 L Pulse Oximetry 99 Oxygen Delivery Oxygen Flow Rate Fraction of Inspired Oxygen 12/06/24 14:14 12/06/24 14:14 12/06/24 14:33 Temperature Pulse Rate 81 78 88 Respiratory Rate 20 Blood Pressure Pulse Oximetry Oxygen Delivery Oxygen Flow Rate Fraction of Inspired Oxygen 12/06/24 15:04 12/06/24 16:00 12/06/24 16:00 Temperature 36.4 C Pulse Rate 92 74 74 Respiratory Rate 24 H 32 H Blood Pressure 95/52 L 95/52 L Pulse Oximetry 97 Oxygen Delivery Oxygen Flow Rate Fraction of Inspired Oxygen 12/06/24 16:00 12/06/24 16:00 12/06/24 17:06 Temperature Pulse Rate 80 74 80 Respiratory Rate 32 H Blood Pressure Pulse Oximetry 97 Oxygen Delivery High Flow Nasal Cannula Oxygen Flow Rate 45 Fraction of Inspired Oxygen 85 12/06/24 17:57 Temperature Pulse Rate 88 Respiratory Rate Blood Pressure Pulse Oximetry Oxygen Delivery Oxygen Flow Rate Fraction of Inspired Oxygen Intake/Output Intake/Output: Intake & Output 12/03/24 12/04/24 12/05/24 12/06/24 23:59 23:59 23:59 23:59 Intake Total 2240 3581.5 1470.0 Output Total 1301 1650 2175 Balance 939 1931.5 -705.0 Meds/Results Medications: Active Medications Generic Name Dose Route Start Last Admin Trade Name Freq PRN Reason Stop Dose Admin Acetaminophen 650 mg 12/04/24 20:38 Acetaminophen 325 Mg Tablet PO Q6H PRN fever or pain 1-3 Apixaban 5 mg 12/04/24 21:00 12/06/24 08:55 Apixaban 5 Mg Tablet PO 5 mg Q12HR HAJA Administration Atorvastatin Calcium 10 mg 12/04/24 21:00 12/05/24 20:15 Atorvastatin 10 Mg Tablet PO 10 mg HS HAJA Administration Benzonatate 100 mg 12/04/24 20:38 Benzonatate 100 Mg Capsule PO Q6H PRN cough Bisacodyl 10 mg 12/04/24 20:38 Bisacodyl 10 Mg Suppository RECTAL DAILY PRN constipation Dextrose 12.5 gm 12/04/24 20:40 Dextrose 50% 25 Gm/50 Ml Syringe IV PUSH PRN PRN Hypoglycemia Protocol Digoxin 500 mcg 12/05/24 09:00 12/06/24 08:55 Digoxin 250 Mcg Tablet PO 500 mcg DAILY HAJA Administration Diltiazem HCl 120 mg 12/07/24 09:00 Diltiazem Hcl Cd 120 Mg Cap.24hr PO QAM HAJA Fluticasone Propionate 1 spray 12/04/24 20:38 Fluticasone Propionate 0.05% Na Spr 16 Gm Btl (*Bkc) NASAL DAILY PRN allergy symptoms Furosemide 40 mg 12/06/24 09:00 12/06/24 16:45 Furosemide Inj 40 Mg/4 Ml Vial IV PUSH 40 mg BID HAJA Administration Glucagon 1 mg 12/04/24 20:40 Glucagon For Inj 1 Mg Vial IM PRN PRN Hypoglycemia Protocol Glucose 15 gm 12/04/24 20:40 Glucose Oral Gel 15 Gm Of Glucse In 37.5 Gm Tube PO PRN PRN Hypoglycemia Protocol Dextrose 1,000 mls @ 100 mls/hr 12/04/24 20:40 Dextrose 5% 1,000 Ml IVPB PRN PRN Hypoglycemia Protocol Diltiazem HCl 100 mg in 100 mls @ 5 mls/hr 12/05/24 18:55 12/06/24 16:00 Cardizem 100 Mg/100 Ml IV CONT 12/07/24 09:00 5 mg/hr .Q20H HAJA 5 mls/hr Infusion 5 MG/HR Insulin Aspart 2 - 5 units 12/05/24 08:00 12/06/24 16:45 Insulin Aspart (*Bkc) 100 Units/Ml SUB-Q 5 units TIDWM HAJA Administration Protocol Insulin Aspart 1 - 2 units 12/04/24 21:00 12/05/24 20:23 Insulin Aspart (*Bkc) 100 Units/Ml SUB-Q Not Given HS HAJA Protocol Insulin Glargine 20 units 12/05/24 09:00 12/06/24 08:56 Insulin Glargine (*Bkc) 100 Units/Ml SUB-Q 20 units DAILY HAJA Administration Levalbuterol HCl 1.25 mg 12/05/24 14:00 12/06/24 14:31 Levalbuterol Neb 1.25 Mg/3 Ml INHALATION 1.25 mg Q6HRT HAJA Administration Magnesium Hydroxide 30 ml 12/04/24 20:38 Magnesium Hydroxide Susp 30 Ml Udc PO HS PRN constipation Melatonin 5 mg 12/04/24 21:00 12/05/24 20:16 Melatonin 5 Mg Tablet PO 5 mg HS HAJA Administration Methylprednisolone Sodium Succinate 250 mg 12/05/24 19:00 12/06/24 13:28 Methylprednisolone Sod Succ 125 Mg Vial IV PUSH 250 mg Q6H HAJA Administration Metoprolol Tartrate 12.5 mg 12/05/24 12:00 12/06/24 17:06 Metoprolol Tartrate 12.5 Mg Tablet PO 12.5 mg Q6HR HAJA Administration Pantoprazole Sodium 40 mg 12/05/24 21:10 12/06/24 08:55 Pantoprazole 40 Mg Tablet PO 40 mg Q12HR HAJA Administration Perflutren Lipid Microsphere 0 ml 12/05/24 08:02 Perflutren Lipid Microspheres 1.5 Ml Vial Diluted To 10 Ml Total Volume IV PUSH 12/08/24 08:02 ONCE PRN adequate visualization Protocol Polyethylene Glycol 17 gm 12/04/24 20:38 Polyethylene Glycol 3350 17 Gm Powd.Pack PO BID PRN constipation Tamsulosin HCl 0.4 mg 12/04/24 21:00 12/05/24 20:15 Tamsulosin Hcl 0.4 Mg Capsule PO 0.4 mg HS HAJA Administration Valacyclovir HCl 1,000 mg 12/05/24 14:00 12/06/24 13:28 Valacyclovir Hcl 500 Mg Tablet PO 1,000 mg Q8HR HAJA Administration Radiology Results: ITS Impressions Chest CT 12/04/24 10:59 IMPRESSION: Severe bilateral interstitial lung disease, as detailed above. Volume loss within the right hemithorax. Mediastinal lymphadenopathy. Findings suggesting prior granulomatous disease. Decreased attenuation within the periphery of the lateral margin of the spleen, possibly related to bolus timing in the absence of a history of trauma for which clinical correlation is needed. Chest X-Ray 12/05/24 18:25 IMPRESSION: Redemonstration of severe interstitial lung disease, as detailed above. Labs Labs: Laboratory Results - last 24 hr 12/05/24 12/06/24 12/06/24 20:10 04:04 07:57 WBC 4.0 L RBC 3.58 L Hgb 10.1 L Hct 29.5 L MCV 82.4 MCH 28.2 MCHC 34.2 RDW 15.2 H Plt Count 141 L MPV 9.1 Immature Gran % (Auto) 4.7 H Neut % (Auto) 63.0 Lymph % (Auto) 29.9 [place] % (Auto) 2.2 L Eos % (Auto) 0.0 Baso % (Auto) 0.2 Lymph # (Auto) 1.20 [place] # (Auto) 0.1 Eos # (Auto) 0.0 Baso # (Auto) 0.0 Abs Immat Gran (auto) 0.19 H Absolute Neuts (auto) 2.5 Absolute Nucleated RBC 0.000 Nucleated RBC % 0.0 Puncture Site ABG pH ABG pCO2 ABG pO2 ABG PO2/FiO2 Ratio ABG HCO3 ABG O2 Saturation ABG O2 Content ABG Base Excess A-a Gradient Oxyhemoglobin Total Hemoglobin O2 Delivery Device O2 Liters/Min FiO2 Sodium 122 L Potassium 4.4 Chloride 95 L Carbon Dioxide 21 L Anion Gap 6 BUN 24 H Creatinine 1.30 Estim Creat Clear Calc 44 Estimated GFR 53 L Glucose 221 H POC Capillary Glucose 189 H 253 H Calcium 7.2 L Magnesium 1.7 Total Bilirubin 0.7 AST 25 ALT 23 Alkaline Phosphatase 69 Total Protein 4.8 L Albumin 2.3 L 12/06/24 12/06/24 12/06/24 09:22 11:44 15:45 WBC RBC Hgb Hct MCV MCH MCHC RDW Plt Count MPV Immature Gran % (Auto) Neut % (Auto) Lymph % (Auto) [place] % (Auto) Eos % (Auto) Baso % (Auto) Lymph # (Auto) [place] # (Auto) Eos # (Auto) Baso # (Auto) Abs Immat Gran (auto) Absolute Neuts (auto) Absolute Nucleated RBC Nucleated RBC % Puncture Site Right radial ABG pH 7.454 H ABG pCO2 31.3 L ABG pO2 51.7 L ABG PO2/FiO2 Ratio 0.65 ABG HCO3 21.5 L ABG O2 Saturation 88.8 L ABG O2 Content 13.2 L ABG Base Excess -1.8 A-a Gradient 485.8 Oxyhemoglobin 85.5 L* Total Hemoglobin 11.0 L O2 Delivery Device High flow therapy O2 Liters/Min 35.0 FiO2 80 Sodium Potassium Chloride Carbon Dioxide Anion Gap BUN Creatinine Estim Creat Clear Calc Estimated GFR Glucose POC Capillary Glucose 369 H 403 H Calcium Magnesium Total Bilirubin AST ALT Alkaline Phosphatase Total Protein Albumin Quality VTE Prophylaxis VTE prophylaxis: pharmacologic ordered
--- NOTE | 2024-12-06 20:08 | P.PNPL_ITS ---
Progress Note: A&P Assessment and Plan (1) Acute and chronic respiratory failure: Code(s): J96.20 - Acute and chronic respiratory failure, unspecified whether with hypoxia or hypercapnia Status: Acute Assessment and Plan: his patient developed respiratory failure in October, required oxygen at discharge after being in [facility] in [place] for about a week. He developed COVID with multifocal pneumonia in November 2024, has been on high flow most of this month. He was transferred to [facility] December 02, had steep increase in O2 requirement in the last 2 days. His CXR today shows severe interstitial fibrosis , possible pulmonary edema. the cardiac silhouette does not appear enlarged. He was on prednisone 20 mg at the time he was transferred to [facility] December 02. Due to his rapid deterioration, I started high dose steroids for an exacerbation of pulmonary fibrosis, 250 mg IV Q 6 hours and Lasix 40 mg IV Q 12 hours. I will decrease the solumedrol to 125 mg IV Q 8 hours. 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 He was on 2 L to 5 L in the last few days until he deteriorated yesterday, came to our ER. He is now requiring higher O2, high flow 75% and 45 L.min, sat is 96%. (3) Dyspnea: Code(s): R06.00 - Dyspnea, unspecified Status: Acute Assessment and Plan: Has severe shortness worse with exertion. He developed pulmonary fibrosis with progressive hypoxemia after COVID, has had rehab, records are pending. He says that he feels a little better today. He is not using as much accessory muscles. (4) Diabetes mellitus type II, uncontrolled: Status: Acute Assessment and Plan: Aggravated by steroids. Plan plan: Decrease solumedrol dose to 125 mg IV Q 8 hours Check CXR in am Check beta hydroxybutyrate, urine for ketones and glucose increase baseline insulin. Request records, again. He has been in a hospital or LTAC since October 09. He had post COVID pulmonary fibrosis, was on recent oral prednisone when admitted here December 04, appeared to have rapidly progressive fibrosis but hard to tell as we had no comparison images but he was on 2 L/min to 5 L/min days before arrival here. Subjective Date/time seen: 12/06/24 20:08 Interval history: 12/05/2024; new consult; Zack Bahenars is an 79-year-old man with ILD, no history of tobacco, no history of any lung disease until he developed shortness of breath in October 2024. He was at [facility] in [facility] admitted October 19 through October 27 related to shortness of breath, family thinks he had atrial fibrillation and this was controlled with metoprolol. Went home for a short amount of time, maybe a day, returned to [facility] in [place] with hemoptysis, and was diagnosed with multifocal pneumonia secondary to COVID during this admission. He developed atrial fibrillation. He had a transesophageal cardioversion and was back in sinus rhythm. He was on Eliquis 2.5 mg b.i.d.. He was transferred to an LTAC for weaning oxygen, He was diagnosed with pulmonary fibrosis. He was re-admitted about October 28; November 03 he was in a regular room at [facility], then was transferred to November 04 to ICU [facility], deteriorated. He was on high-flow but not intubated. During this admission, he was diagnosed with COVID. November 09 he was sent to [facility] in [facility], November 09 until December 02, was stabilized, November 23 he was on 60 liters/minute and 75% FiO2. He was transferred to [facility] on December 02 for rehab. He was able to have his O2 decreased to 2 L/minute. Thursday am, he woke up, was disoriented, his heart rate was high 120, his O2 sat was low in the low 80s, but his son said that this seemed to be a little worse. He came to [facility] with saturation 80% on 6-8 L. Chart from [facility] shows PMH including BPH, a fib, hyperlipidemia, multifocal pneumonia due to COVID. pulmonary hypertension, chronic respiratory failure, severe protein calorie malnutrition. At [facility], he was on 5 L with sat 96%. During the last week, heart rate was elevated at 120; family was not sure why. I did not see tachycardia documented in the notes from [facility]. His transfer medication list from [facility] ([facility]) showed that he was on prednisone 20 mg po daily, propafenone 225 mg q.8 hours for atrial fib., PMH : DM 8 years ago. No chronic medical problems otherwise per family. No surgeries. : 2 years in [place]. 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 He was never evaluated for asbestosis. He had no history of lung disease when he was working. He retired around age 63. 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 He had no lung issues until around [address] Elio Porter in [place]; had fluid on his lung in the nodule, the fluid resolved on its own so he did not need a thoracentesis, he went home, did not need pulmonary follow up. Tobacco: never smoker. Soc: He is to Padmini, they raised 4 children. He has not been at home over a few days since October due to his respiratory problems, and being in a hospital or LTAC/Rehab. Family hx: father at age 82, was a forensic document examiner. 12/06/2024; hospital follow up; He had PAF today, senior data analyst saw him and started meds to control his rate, now on diltiazem drip 5 mg an hour in addition to metoprolol 12.5 mg Q 6 hours. He had wound care today for his bottom, is feeling a little better. His son Ethan is at the bedside, and Ethan's friend is visiting. The patient feels fine when he is sitting still, not exerting himself. He started high dose steroids last night Solu-medrol 250 mg IV Q 6 hours. He is on Lasix 40 mg IV Q 12 hours. Blood glucose is high, 253 to 412. Na+ is lower 122, serum CO2 is 21, lower, was 24 yesterday. He is not coughing. He has no joint pain. Appetite is increased with steroids. DATA Ethan shared images of his father's CXRs with the dates on his cell phone. I am looking at CXR 11/21/24 Brigette, not as severe as this CXR today. November 09, 2024 Brigette; not as abnormal as today, fibrosis visible, more aerated lungs in apices. * 12/05/2024 CXR : Cardiomediastinal silhouette is partially obscured. Diffuse interstitial thickening with a bilateral lower lobe, likely chronic. Small bilateral pleural effusions are also noted. Peripheral and bibasilar honeycombing is present. IMPRESSION: Re-demonstration of severe interstitial lung disease, as detailed above. document embedded image * 12/04/2024; chest CT: IMPRESSION: Severe bilateral interstitial lung disease, as detailed above. Volume loss within the right hemithorax. Mediastinal lymphadenopathy. Findings suggesting prior granulomatous disease. Decreased attenuation within the periphery of the lateral margin of the spleen, possibly related to bolus timing in the absence of a history of trauma for which clinical correlation is needed. * 12/04/2024 EKG; Sinus rhythm with incomplete right bundle-branch block, minimal ST depression. *12/05/2024, white blood cell count 5.2, hemoglobin 10.6, hematocrit 32%, platelets 150 k. Review of Systems Review of Systems: All systems reviewed & are unremarkable except as noted in HPI and below Exam Narrative: GEN: Alert, oriented, can nod to questions. He is on high flow nasal cannula 75% and 45 L/minute. Saturation is 95-96%. HEENT: pupils are equal, EOMI, symmetrical face; oral membranes moist, Mallampati II airway NECK: Trachea is midline CHEST: Equal air entry, symmetric excursion, clear breath sounds CV: Regular S1S2 no m/g/r ABD : (+) bowel sounds Extremities : no clubbing, cyanosis, edema PSYCH: normal thought and speech, gait is normal Objective Data Vital Signs Vital Signs: Vital Signs - 24 hr 12/05/24 20:12 12/05/24 21:09 12/05/24 21:26 Temperature Pulse Rate 125 H Respiratory Rate 22 H Blood Pressure 97/55 L Pulse Oximetry 87 L 87 L Oxygen Delivery High Flow Nasal Cannula High Flow Nasal Cannula Oxygen Flow Rate 15 15 Fraction of Inspired Oxygen 12/05/24 22:00 12/05/24 22:00 12/05/24 22:00 Temperature Pulse Rate 113 H 127 H 125 H Respiratory Rate 20 Blood Pressure 97/55 L 97/55 L Pulse Oximetry 90 Oxygen Delivery Oxygen Flow Rate Fraction of Inspired Oxygen 12/05/24 22:57 12/05/24 22:59 12/06/24 00:00 Temperature 36.9 C Pulse Rate 118 H Respiratory Rate 22 H Blood Pressure 105/52 L 98/50 L Pulse Oximetry 90 91 Oxygen Delivery High Flow Nasal Cannula Oxygen Flow Rate 12 Fraction of Inspired Oxygen 12/06/24 00:00 12/06/24 00:00 12/06/24 00:00 Temperature Pulse Rate 119 H 127 H Respiratory Rate Blood Pressure 98/50 L Pulse Oximetry 91 Oxygen Delivery High Flow Nasal Cannula Oxygen Flow Rate 15 Fraction of Inspired Oxygen 12/06/24 00:05 12/06/24 01:57 12/06/24 02:00 Temperature Pulse Rate 127 H 125 H 98 Respiratory Rate 22 H Blood Pressure 97/43 L Pulse Oximetry Oxygen Delivery Oxygen Flow Rate Fraction of Inspired Oxygen 12/06/24 02:00 12/06/24 02:00 12/06/24 02:09 Temperature Pulse Rate 96 98 125 H Respiratory Rate 22 H Blood Pressure 97/43 L Pulse Oximetry Oxygen Delivery Oxygen Flow Rate Fraction of Inspired Oxygen 12/06/24 03:52 12/06/24 04:00 12/06/24 04:00 Temperature 36.5 C Pulse Rate 86 92 Respiratory Rate 24 H Blood Pressure 101/44 L Pulse Oximetry 92 90 Oxygen Delivery High Flow Nasal Cannula Oxygen Flow Rate 15 Fraction of Inspired Oxygen 12/06/24 04:00 12/06/24 06:00 12/06/24 06:00 Temperature Pulse Rate 92 88 88 Respiratory Rate Blood Pressure 101/44 L 94/55 L Pulse Oximetry Oxygen Delivery Oxygen Flow Rate Fraction of Inspired Oxygen 12/06/24 06:00 12/06/24 06:04 12/06/24 07:45 Temperature Pulse Rate 88 99 Respiratory Rate Blood Pressure 94/55 L Pulse Oximetry 85 L Oxygen Delivery High Flow Nasal Cannula Oxygen Flow Rate 12 Fraction of Inspired Oxygen 12/06/24 08:00 12/06/24 08:00 12/06/24 08:00 Temperature 35.9 C L Pulse Rate 93 82 Respiratory Rate 28 H 22 H Blood Pressure 92/54 L Pulse Oximetry 86 L 95 95 Oxygen Delivery High Flow Therapy with Na High Flow Nasal Cannula Oxygen Flow Rate 45 15 Fraction of Inspired Oxygen 85 85 12/06/24 08:00 12/06/24 08:00 12/06/24 08:35 Temperature Pulse Rate 87 93 Respiratory Rate Blood Pressure 92/54 L Pulse Oximetry Oxygen Delivery High Flow Nasal Cannula Oxygen Flow Rate 35 Fraction of Inspired Oxygen 12/06/24 08:55 12/06/24 09:20 12/06/24 10:00 Temperature Pulse Rate 95 82 Respiratory Rate 22 H Blood Pressure 93/49 L Pulse Oximetry Oxygen Delivery Oxygen Flow Rate Fraction of Inspired Oxygen 12/06/24 10:00 12/06/24 10:00 12/06/24 12:00 Temperature Pulse Rate 87 87 96 Respiratory Rate 26 H Blood Pressure 93/49 L 93/48 L Pulse Oximetry 99 Oxygen Delivery Oxygen Flow Rate Fraction of Inspired Oxygen 12/06/24 12:00 12/06/24 12:00 12/06/24 12:00 Temperature Pulse Rate 96 80 96 Respiratory Rate 32 H Blood Pressure 93/48 L Pulse Oximetry 97 Oxygen Delivery High Flow Nasal Cannula Oxygen Flow Rate 45 Fraction of Inspired Oxygen 85 12/06/24 13:29 12/06/24 14:00 12/06/24 14:00 Temperature Pulse Rate 86 82 82 Respiratory Rate Blood Pressure 103/52 L 103/52 L Pulse Oximetry 99 Oxygen Delivery Oxygen Flow Rate Fraction of Inspired Oxygen 12/06/24 14:14 12/06/24 14:14 12/06/24 14:33 Temperature Pulse Rate 81 78 88 Respiratory Rate 20 Blood Pressure Pulse Oximetry Oxygen Delivery Oxygen Flow Rate Fraction of Inspired Oxygen 12/06/24 15:04 12/06/24 16:00 12/06/24 16:00 Temperature 36.4 C Pulse Rate 92 74 74 Respiratory Rate 24 H 32 H Blood Pressure 95/52 L 95/52 L Pulse Oximetry 97 Oxygen Delivery Oxygen Flow Rate Fraction of Inspired Oxygen 12/06/24 16:00 12/06/24 16:00 12/06/24 17:06 Temperature Pulse Rate 80 74 80 Respiratory Rate 32 H Blood Pressure Pulse Oximetry 97 Oxygen Delivery High Flow Nasal Cannula Oxygen Flow Rate 45 Fraction of Inspired Oxygen 85 12/06/24 17:57 12/06/24 18:00 12/06/24 19:09 Temperature Pulse Rate 88 69 Respiratory Rate Blood Pressure 91/53 L 91/53 L Pulse Oximetry Oxygen Delivery Oxygen Flow Rate Fraction of Inspired Oxygen Intake/Output Intake/Output: Intake & Output 12/03/24 12/04/24 12/05/24 12/06/24 23:59 23:59 23:59 23:59 Intake Total 2240 3581.5 1485.8 Output Total 1301 1650 3025 Balance 939 1931.5 -1539.2 Meds/Results Medications: Active Medications Generic Name Dose Route Start Last Admin Trade Name Freq PRN Reason Stop Dose Admin Acetaminophen 650 mg 12/04/24 20:38 Acetaminophen 325 Mg Tablet PO Q6H PRN fever or pain 1-3 Apixaban 5 mg 12/04/24 21:00 12/06/24 08:55 Apixaban 5 Mg Tablet PO 5 mg Q12HR HAJA Administration Atorvastatin Calcium 10 mg 12/04/24 21:00 12/05/24 20:15 Atorvastatin 10 Mg Tablet PO 10 mg HS AHJA Administration Benzonatate 100 mg 12/04/24 20:38 Benzonatate 100 Mg Capsule PO Q6H PRN cough Bisacodyl 10 mg 12/04/24 20:38 Bisacodyl 10 Mg Suppository RECTAL DAILY PRN constipation Dextrose 12.5 gm 12/04/24 20:40 Dextrose 50% 25 Gm/50 Ml Syringe IV PUSH PRN PRN Hypoglycemia Protocol Digoxin 500 mcg 12/05/24 09:00 12/06/24 08:55 Digoxin 250 Mcg Tablet PO 500 mcg DAILY HAJA Administration Diltiazem HCl 120 mg 12/07/24 09:00 Diltiazem Hcl Cd 120 Mg Cap.24hr PO QAM HAJA Fluticasone Propionate 1 spray 12/04/24 20:38 Fluticasone Propionate 0.05% Na Spr 16 Gm Btl (*Bkc) NASAL DAILY PRN allergy symptoms Furosemide 40 mg 12/06/24 09:00 12/06/24 16:45 Furosemide Inj 40 Mg/4 Ml Vial IV PUSH 40 mg BID HAJA Administration Glucagon 1 mg 12/04/24 20:40 Glucagon For Inj 1 Mg Vial IM PRN PRN Hypoglycemia Protocol Glucose 15 gm 12/04/24 20:40 Glucose Oral Gel 15 Gm Of Glucse In 37.5 Gm Tube PO PRN PRN Hypoglycemia Protocol Dextrose 1,000 mls @ 100 mls/hr 12/04/24 20:40 Dextrose 5% 1,000 Ml IVPB PRN PRN Hypoglycemia Protocol Diltiazem HCl 100 mg in 100 mls @ 5 mls/hr 12/05/24 18:55 12/06/24 19:09 Cardizem 100 Mg/100 Ml IV CONT 12/07/24 09:00 5 mg/hr .Q20H HAJA 5 mls/hr Infusion 5 MG/HR Insulin Aspart 2 - 5 units 12/05/24 08:00 12/06/24 16:45 Insulin Aspart (*Bkc) 100 Units/Ml SUB-Q 5 units TIDWM HAJA Administration Protocol Insulin Aspart 1 - 2 units 12/04/24 21:00 12/05/24 20:23 Insulin Aspart (*Bkc) 100 Units/Ml SUB-Q Not Given HS HAJA Protocol Insulin Glargine 20 units 12/05/24 09:00 12/06/24 08:56 Insulin Glargine (*Bkc) 100 Units/Ml SUB-Q 20 units DAILY HAJA Administration Levalbuterol HCl 1.25 mg 12/05/24 14:00 12/06/24 19:36 Levalbuterol Neb 1.25 Mg/3 Ml INHALATION 1.25 mg Q6HRT HAJA Administration Magnesium Hydroxide 30 ml 12/04/24 20:38 Magnesium Hydroxide Susp 30 Ml Udc PO HS PRN constipation Melatonin 5 mg 12/04/24 21:00 12/05/24 20:16 Melatonin 5 Mg Tablet PO 5 mg HS HAJA Administration Methylprednisolone Sodium Succinate 250 mg 12/05/24 19:00 12/06/24 13:28 Methylprednisolone Sod Succ 125 Mg Vial IV PUSH 250 mg Q6H HAJA Administration Metoprolol Tartrate 12.5 mg 12/05/24 12:00 12/06/24 17:06 Metoprolol Tartrate 12.5 Mg Tablet PO 12.5 mg Q6HR HAJA Administration Pantoprazole Sodium 40 mg 12/05/24 21:10 12/06/24 08:55 Pantoprazole 40 Mg Tablet PO 40 mg Q12HR HAJA Administration Perflutren Lipid Microsphere 0 ml 12/05/24 08:02 Perflutren Lipid Microspheres 1.5 Ml Vial Diluted To 10 Ml Total Volume IV PUSH 12/08/24 08:02 ONCE PRN adequate visualization Protocol Polyethylene Glycol 17 gm 12/04/24 20:38 Polyethylene Glycol 3350 17 Gm Powd.Pack PO BID PRN constipation Tamsulosin HCl 0.4 mg 12/04/24 21:00 12/05/24 20:15 Tamsulosin Hcl 0.4 Mg Capsule PO 0.4 mg HS HAJA Administration Valacyclovir HCl 1,000 mg 12/05/24 14:00 12/06/24 13:28 Valacyclovir Hcl 500 Mg Tablet PO 1,000 mg Q8HR HAJA Administration Radiology Results: ITS Impressions Chest CT 12/04/24 10:59 IMPRESSION: Severe bilateral interstitial lung disease, as detailed above. Volume loss within the right hemithorax. Mediastinal lymphadenopathy. Findings suggesting prior granulomatous disease. Decreased attenuation within the periphery of the lateral margin of the spleen, possibly related to bolus timing in the absence of a history of trauma for which clinical correlation is needed. Chest X-Ray 12/05/24 18:25 IMPRESSION: Redemonstration of severe interstitial lung disease, as detailed above. Labs Labs: Laboratory Results - last 24 hr 12/05/24 12/06/24 12/06/24 20:10 04:04 07:57 WBC 4.0 L RBC 3.58 L Hgb 10.1 L Hct 29.5 L MCV 82.4 MCH 28.2 MCHC 34.2 RDW 15.2 H Plt Count 141 L MPV 9.1 Immature Gran % (Auto) 4.7 H Neut % (Auto) 63.0 Lymph % (Auto) 29.9 Ballard % (Auto) 2.2 L Eos % (Auto) 0.0 Baso % (Auto) 0.2 Lymph # (Auto) 1.20 Ballard # (Auto) 0.1 Eos # (Auto) 0.0 Baso # (Auto) 0.0 Abs Immat Gran (auto) 0.19 H Absolute Neuts (auto) 2.5 Absolute Nucleated RBC 0.000 Nucleated RBC % 0.0 Puncture Site ABG pH ABG pCO2 ABG pO2 ABG PO2/FiO2 Ratio ABG HCO3 ABG O2 Saturation ABG O2 Content ABG Base Excess A-a Gradient Oxyhemoglobin Total Hemoglobin O2 Delivery Device O2 Liters/Min FiO2 Sodium 122 L Potassium 4.4 Chloride 95 L Carbon Dioxide 21 L Anion Gap 6 BUN 24 H Creatinine 1.30 Estim Creat Clear Calc 44 Estimated GFR 53 L Glucose 221 H POC Capillary Glucose 189 H 253 H Calcium 7.2 L Magnesium 1.7 Total Bilirubin 0.7 AST 25 ALT 23 Alkaline Phosphatase 69 Total Protein 4.8 L Albumin 2.3 L 12/06/24 12/06/24 12/06/24 09:22 11:44 15:45 WBC RBC Hgb Hct MCV MCH MCHC RDW Plt Count MPV Immature Gran % (Auto) Neut % (Auto) Lymph % (Auto) Ballard % (Auto) Eos % (Auto) Baso % (Auto) Lymph # (Auto) Ballard # (Auto) Eos # (Auto) Baso # (Auto) Abs Immat Gran (auto) Absolute Neuts (auto) Absolute Nucleated RBC Nucleated RBC % Puncture Site Right radial ABG pH 7.454 H ABG pCO2 31.3 L ABG pO2 51.7 L ABG PO2/FiO2 Ratio 0.65 ABG HCO3 21.5 L ABG O2 Saturation 88.8 L ABG O2 Content 13.2 L ABG Base Excess -1.8 A-a Gradient 485.8 Oxyhemoglobin 85.5 L* Total Hemoglobin 11.0 L O2 Delivery Device High flow therapy O2 Liters/Min 35.0 FiO2 80 Sodium Potassium Chloride Carbon Dioxide Anion Gap BUN Creatinine Estim Creat Clear Calc Estimated GFR Glucose POC Capillary Glucose 369 H 403 H Calcium Magnesium Total Bilirubin AST ALT Alkaline Phosphatase Total Protein Albumin 12/06/24 19:47 WBC RBC Hgb Hct MCV MCH MCHC RDW Plt Count MPV Immature Gran % (Auto) Neut % (Auto) Lymph % (Auto) Ballard % (Auto) Eos % (Auto) Baso % (Auto) Lymph # (Auto) Ballard # (Auto) Eos # (Auto) Baso # (Auto) Abs Immat Gran (auto) Absolute Neuts (auto) Absolute Nucleated RBC Nucleated RBC % Puncture Site ABG pH ABG pCO2 ABG pO2 ABG PO2/FiO2 Ratio ABG HCO3 ABG O2 Saturation ABG O2 Content ABG Base Excess A-a Gradient Oxyhemoglobin Total Hemoglobin O2 Delivery Device O2 Liters/Min FiO2 Sodium Potassium Chloride Carbon Dioxide Anion Gap BUN Creatinine Estim Creat Clear Calc Estimated GFR Glucose POC Capillary Glucose 412 H Calcium Magnesium Total Bilirubin AST ALT Alkaline Phosphatase Total Protein Albumin
[2024-12-06] MEDS: MELATONIN 5 MG TABLET PO (20:30)
[2024-12-06] MEDS: ATORVASTATIN 10 MG TABLET PO (20:30)
[2024-12-06] MEDS: TAMSULOSIN HCL 0.4 MG CAPSULE PO (20:30)
[2024-12-06] MEDS: INSULIN HUMAN REGULAR (*BKC) 100 UNITS/ML 12 UNITS SUB-Q (20:31)
[2024-12-06 23:09] LABS: Beta-Hydroxybutyrate/Acetoacetate 0.67 mmol/L (0.02-0.27)
[2024-12-07] VITALS (30 sets, daily range): BP systolic 95–149; BP diastolic 48–92; PULSE 73–747; RESP 17–26; TEMP 36.4–36.6; O2SAT 92–98
[2024-12-07] MEDS: METOPROLOL TARTRATE 12.5 MG TABLET PO ×4 (00:47→17:55)
[2024-12-07 04:10] LABS: Hematocrit 25.9 % (42.0-52.0); Hemoglobin 8.9 g/dL (14.0-18.0); Mean Corpuscular HGB Conc 34.4 g/dl (32-36); Mean Corpuscular Hemoglobin 28.0 pg (26-34); Mean Corpuscular Volume 81.4 fl (80-100); Platelet Count Result 169 k/mm3 (150-375); Red Blood Count 3.18 M/mm3 (4.6-6.20); White Blood Count 6.5 K/mm3 (4.5-10.0)
[2024-12-07 04:59] LABS: Anion Gap 7 mmol/L (4-12); Blood Urea Nitrogen 42 mg/dL (9-20); Calcium 7.0 mg/dL (8.4-10.2); Carbon Dioxide 21 mmol/L (22-30); Chloride 95 mmol/L (98-107); Estimated CRCL calculation 31 ml/min; Estimated Glomerular Filt Rate 35; Glucose 254 mg/dL (65-110); Magnesium 1.7 mg/dL (1.6-2.3); Potassium 4.3 mmol/L (3.4-5.0); Sodium 123 mmol/L (137-145)
[2024-12-07 06:02] LABS: Add Urine Microscopic? NO; Appearance Urine Clear (Clear); Glucose Urine UA 1+ mg/dL (Negative); Leukocyte Esterase Ur Negative LEU/UL (Negative); Nitrate Urine Negative (Negative); Specific Grav Ur 1.014 (1.001-1.035)
[2024-12-07] MEDS: dilTIAZem HCL CD 120 MG CAP.24HR PO (09:03)
[2024-12-07] MEDS: APIXABAN 5 MG TABLET PO ×2 (09:03→20:35)
[2024-12-07] MEDS: FUROSEMIDE INJ 40 MG/4 ML VIAL IV PUSH ×2 (09:03→17:55)
[2024-12-07] MEDS: DIGOXIN 250 MCG TABLET 500 MCG PO (09:04)
[2024-12-07] MEDS: INSULIN GLARGINE (*BKC) 100 UNITS/ML 20 UNITS SUB-Q ×2 (09:04→15:58)
[2024-12-07] MEDS: PANTOPRAZOLE 40 MG TABLET PO ×2 (09:04→20:35)
[2024-12-07] MEDS: INSULIN ASPART (*BKC) 100 UNITS/ML SUB-Q ×6 (11:01→20:41)
--- NOTE | 2024-12-07 11:13 | PC.NURSE ---
Blood glucose this morning was noted to be 303. Flight Technician stated that the patient had already eaten breakfast by the time the blood glucose was checked. This RN went to get the regular insulin to give the patient s/s as ordered. There was not insulin on the floor to give at this time. This RN called the pharmacy to request a new bottle. The pharmacy delivered the insulin to the floor around the 1000 hour. The charge nurse rechecked the blood glucose and called the doctor to report a blood sugar of 412. The charge nurse informed the doctor that the patient had received his Lantus as ordered (see eMAR), but that he had not had is fast acting sliding scale because we did not have any on the floor to give earlier. The doctor did give orders and insulin was provided to the patient as ordered.
--- NOTE | 2024-12-07 16:25 | P.PNIM_ITS ---
Progress Note: A&P Assessment and Plan (1) Hypotension: Code(s): I95.9 - Hypotension, unspecified Status: Acute Assessment and Plan: * Pt's BP has been running soft 87-109/48-91. * Continue Telemetry no Pnuemomnia on chest x ray titrate home meds with clinical course Continue IVF and monitor closely (2) Dyspnea: Code(s): R06.00 - Dyspnea, unspecified Status: Acute Assessment and Plan: * Likely acute on chronic and likely invoked by the decreased baseline supplemental oxygen at care home. * Continue pt's baseline 5L-6L per [place] supplemental oxygen. * Rhonchi present on physical exam. Will order Duonebs Q6 hrs scheduled and prn Albuterol nebs. * Continue IV Steroid * Consulted Pulmonology (3) Hyponatremia: Code(s): E87.1 - Hypo-osmolality and hyponatremia Status: Acute Assessment and Plan: * Sodium is 127 * with rehydration * urine studies pending (4) Impaired skin integrity: Code(s): R23.9 - Unspecified skin changes Status: Acute Assessment and Plan: * Wounds noted to Coccyx and buttocks. Pics taken by nurse. * Consult Wound nurse * Offload weight on affected area. * For rash around abdomen, suggest not wearing a depends/adult brief. (5) Interstitial lung disease: Code(s): J84.9 - Interstitial pulmonary disease, unspecified Status: Chronic Assessment and Plan: contineu above care (6) Atrial fibrillation: Code(s): I48.91 - Unspecified atrial fibrillation Status: Chronic Assessment and Plan: * Unable to use Beta theresa at this time secondary to Hypotension as noted in #1. * Continue Eliquis * restart MEtoprolol adn Digoxin adn monitor blood pressure * EHCO pending Plan patient with history of ILD most likely 2/2 COVID infection he had recently and possible environmental chemical exposure, patient is seen by his fashion show director patient is treated with high dose steroids and loading dose of methylprednisone 250mg IV q6 for 1 day and taper it down to 125mg q8, patient stats feeling better compared to when he arrived, patient has history of diabetes his blood sugars are running high due to steroids, will monitor and correct it, his is present in the room. repeat chest x-ray today showed: Redemonstration of diffuse interstitial thickening with a bilateral lower lobe distribution, likely chronic. Peripheral and bibasilar honeycombing. Bibasilar pleural thickening, right greater than left. patient stats feeling litter better compared to when he arrived, will continue to monitor, patient will be seeing by fashion show director, DVT prohylaxis on Eliquis Subjective Date/time seen: 12/07/24 16:25 Interval history: Dyspnea H&P-Narrative: This is an 79 year male patient with past medical history significant pulmonary fibrosis status post COVID diagnosis on 6 L oxygen, atrial fibrillation on and control metoprolol who currently resides at [facility] Where he is currently at for rehabilitation. Prior to going to [facility], he was in the hospital at [place] and transferred to [place] and ultimately transferred to [facility]. Pt alert, oriented x4 and without any acute complaint. He was sent to the ER with complaints of hypoxia and dyspnea after nursing service found him with low oxygen sats in his room, noted to be on 2L. He was sent to the ER where he required a few moments of BiPap and has ultimately recovered to his baseline on 5L Supplemental oxygen. His EKG upon arrival to the ER showed a variable rate/rhythm that was either ST or A-flutter/tach with rates from low 100s-120s. Although he has Metoprolol ordered for rate control as he does have a hx of A- fib, it was not given as pt's BP has been on the lower side. Pt has no respiratory complaints and no concerns of CP. His only complaint is pain in his coccyx region from breakdown. In the emergency room fall was performed EKG showing either sinus tachycardia versus a flutter with RVR, however unable to be controlled with beta blockade as patient's blood pressure has been low. CT of the chest showing severe bilateral interstitial lung disease with mediastinal lymphadenopathy present. CBC unremarkable with WBC is 5.3 and intact H&H. Metabolic panel showing hyponatremia at 1:23 a.m.. Renal function impaired with creatinine and BUN of 1.4/27, however we do not know patient's baseline as there is none historical in our system. Glucose noted to be 72. Urinalysis was unremarkable and coags are normal. ER physician was concerned for potential dehydration component contributing to patient's tachycardia. He was given a Liter of LR and albuterol nebulizer. It should be noted that we do not have any historical information of PMH on this pt in our EMR system for comparison and trending purposes. He tells me that he does not see a regular Sat Instructor for his ILD. He also does not see a Grain Sacker despite his hx of A-fib. patient with history of ILD most likely 2/2 COVID infection he had recently and possible environmental chemical exposure, patient is seen by his fashion show director patient is treated with high dose steroids and loading dose of methylprednisone 250mg IV q6 for 1 day and taper it down to 125mg q8, patient stats feeling better compared to when he arrived, patient has history of diabetes his blood sugars are running high due to steroids, will monitor and correct it, his is present in the room. repeat chest x-ray today showed: Redemonstration of diffuse interstitial thickening with a bilateral lower lobe distribution, likely chronic. Peripheral and bibasilar honeycombing. Bibasilar pleural thickening, right greater than left. patient stats feeling litter better compared to when he arrived, will continue to monitor, patient will be seeing by fashion show director, Review of Systems Review of Systems: All systems reviewed & are unremarkable except as noted in HPI and below Exam Narrative: Patient is comfortable, NAD HEENT: eyes are clear and none icteric LUNGS: Bilateral fair air entry with harsh breath sounds HEART: RR S1S2 ABD: BS+, Soft and nontender Lower extremities: no edema SKIN: nonjaundiced Neuro: grossly intact. Objective Data Vital Signs Vital Signs: Vital Signs - 24 hr 12/06/24 17:06 12/06/24 17:57 12/06/24 18:00 Temperature Pulse Rate 80 88 Respiratory Rate Blood Pressure 91/53 L Pulse Oximetry Oxygen Delivery Oxygen Flow Rate Fraction of Inspired Oxygen 12/06/24 19:09 12/06/24 19:36 12/06/24 19:36 Temperature Pulse Rate 69 78 Respiratory Rate 26 H Blood Pressure 91/53 L Pulse Oximetry 96 Oxygen Delivery High Flow Therapy with Na Oxygen Flow Rate 55 Fraction of Inspired Oxygen 75 12/06/24 19:46 12/06/24 20:00 12/06/24 20:00 Temperature 36.5 C Pulse Rate 73 81 81 Respiratory Rate 26 H 26 H Blood Pressure 111/46 L 111/46 L Pulse Oximetry 96 Oxygen Delivery Oxygen Flow Rate Fraction of Inspired Oxygen 12/06/24 20:00 12/06/24 20:00 12/06/24 22:00 Temperature Pulse Rate 75 71 Respiratory Rate Blood Pressure 89/45 L Pulse Oximetry 90 Oxygen Delivery High Flow Therapy with Na Oxygen Flow Rate 45 Fraction of Inspired Oxygen 85 12/06/24 22:00 12/06/24 22:20 12/06/24 23:33 Temperature Pulse Rate 78 74 77 Respiratory Rate Blood Pressure 90/45 L 85/40 L Pulse Oximetry Oxygen Delivery Oxygen Flow Rate Fraction of Inspired Oxygen 12/06/24 23:44 12/07/24 00:00 12/07/24 00:00 Temperature 35.9 C L Pulse Rate 64 73 Respiratory Rate 26 H Blood Pressure 85/40 L Pulse Oximetry 98 98 Oxygen Delivery High Flow Therapy with Na Oxygen Flow Rate 45 Fraction of Inspired Oxygen 85 12/07/24 00:47 12/07/24 00:48 12/07/24 01:26 Temperature Pulse Rate 78 78 79 Respiratory Rate 25 H Blood Pressure 99/48 L Pulse Oximetry Oxygen Delivery Oxygen Flow Rate Fraction of Inspired Oxygen 12/07/24 01:34 12/07/24 02:00 12/07/24 03:49 Temperature 36.6 C Pulse Rate 73 79 79 Respiratory Rate 26 H 26 H Blood Pressure 95/48 L Pulse Oximetry 94 Oxygen Delivery Oxygen Flow Rate Fraction of Inspired Oxygen 12/07/24 04:00 12/07/24 04:00 12/07/24 05:29 Temperature Pulse Rate 80 98 Respiratory Rate Blood Pressure 102/58 L Pulse Oximetry 98 Oxygen Delivery High Flow Therapy with Na Oxygen Flow Rate 45 Fraction of Inspired Oxygen 85 12/07/24 05:30 12/07/24 06:00 12/07/24 08:00 Temperature 36.4 C L Pulse Rate 88 86 109 H Respiratory Rate 22 H Blood Pressure 117/88 Pulse Oximetry 96 Oxygen Delivery Oxygen Flow Rate Fraction of Inspired Oxygen 12/07/24 08:00 12/07/24 08:00 12/07/24 08:08 Temperature Pulse Rate 87 87 Respiratory Rate 22 H Blood Pressure Pulse Oximetry 95 93 Oxygen Delivery High Flow Therapy with Na High Flow Therapy with Na Oxygen Flow Rate 45 55 Fraction of Inspired Oxygen 75 75 12/07/24 08:08 12/07/24 08:15 12/07/24 09:00 Temperature Pulse Rate 75 73 Respiratory Rate 23 H 23 H Blood Pressure Pulse Oximetry Oxygen Delivery High Flow Therapy with Na Oxygen Flow Rate 55 Fraction of Inspired Oxygen 12/07/24 09:04 12/07/24 10:00 12/07/24 12:00 Temperature 36.4 C L Pulse Rate 92 92 89 Respiratory Rate 22 H Blood Pressure 149/92 H Pulse Oximetry 95 Oxygen Delivery Oxygen Flow Rate Fraction of Inspired Oxygen 12/07/24 12:00 12/07/24 12:00 12/07/24 13:40 Temperature Pulse Rate 74 93 79 Respiratory Rate 24 H Blood Pressure Pulse Oximetry 95 Oxygen Delivery High Flow Therapy with Na Oxygen Flow Rate 40 Fraction of Inspired Oxygen 75 12/07/24 13:42 12/07/24 13:56 12/07/24 14:00 Temperature Pulse Rate 74 747 H 73 Respiratory Rate 24 H 24 H Blood Pressure Pulse Oximetry Oxygen Delivery Oxygen Flow Rate Fraction of Inspired Oxygen Intake/Output Intake/Output: Intake & Output 12/04/24 12/05/24 12/06/24 12/07/24 23:59 23:59 23:59 23:59 Intake Total 2240 3581.5 1507.9 560 Output Total 1301 1650 3025 400 Balance 939 1931.5 -1517.1 160 Meds/Results Medications: Active Medications Generic Name Dose Route Start Last Admin Trade Name Freq PRN Reason Stop Dose Admin Acetaminophen 650 mg 12/04/24 20:38 Acetaminophen 325 Mg Tablet PO Q6H PRN fever or pain 1-3 Apixaban 5 mg 12/04/24 21:00 12/07/24 09:03 Apixaban 5 Mg Tablet PO 5 mg Q12HR HAJA Administration Atorvastatin Calcium 10 mg 12/04/24 21:00 12/06/24 20:30 Atorvastatin 10 Mg Tablet PO 10 mg HS HAJA Administration Benzonatate 100 mg 12/04/24 20:38 Benzonatate 100 Mg Capsule PO Q6H PRN cough Bisacodyl 10 mg 12/04/24 20:38 Bisacodyl 10 Mg Suppository RECTAL DAILY PRN constipation Dextrose 12.5 gm 12/04/24 20:40 Dextrose 50% 25 Gm/50 Ml Syringe IV PUSH PRN PRN Hypoglycemia Protocol Digoxin 500 mcg 12/05/24 09:00 12/07/24 09:04 Digoxin 250 Mcg Tablet PO 500 mcg DAILY HAJA Administration Diltiazem HCl 120 mg 12/07/24 09:00 12/07/24 09:03 Diltiazem Hcl Cd 120 Mg Cap.24hr PO 120 mg QAM HAJA Administration Fluticasone Propionate 1 spray 12/04/24 20:38 Fluticasone Propionate 0.05% Na Spr 16 Gm Btl (*Bkc) NASAL DAILY PRN allergy symptoms Furosemide 40 mg 12/06/24 09:00 12/07/24 09:03 Furosemide Inj 40 Mg/4 Ml Vial IV PUSH 40 mg BID HAJA Administration Glucagon 1 mg 12/04/24 20:40 Glucagon For Inj 1 Mg Vial IM PRN PRN Hypoglycemia Protocol Glucose 15 gm 12/04/24 20:40 Glucose Oral Gel 15 Gm Of Glucse In 37.5 Gm Tube PO PRN PRN Hypoglycemia Protocol Dextrose 1,000 mls @ 100 mls/hr 12/04/24 20:40 Dextrose 5% 1,000 Ml IVPB PRN PRN Hypoglycemia Protocol Insulin Aspart 2 - 5 units 12/05/24 08:00 12/07/24 15:55 Insulin Aspart (*Bkc) 100 Units/Ml SUB-Q 5 units TIDWM HAJA Administration Protocol Insulin Aspart 1 - 2 units 12/04/24 21:00 12/06/24 20:31 Insulin Aspart (*Bkc) 100 Units/Ml SUB-Q Not Given HS HAJA Protocol Insulin Glargine 20 units 12/05/24 09:00 12/07/24 09:04 Insulin Glargine (*Bkc) 100 Units/Ml SUB-Q 20 units DAILY HAJA Administration Levalbuterol HCl 1.25 mg 12/05/24 14:00 12/07/24 13:39 Levalbuterol Neb 1.25 Mg/3 Ml INHALATION 1.25 mg Q6HRT HAJA Administration Magnesium Hydroxide 30 ml 12/04/24 20:38 Magnesium Hydroxide Susp 30 Ml Udc PO HS PRN constipation Melatonin 5 mg 12/04/24 21:00 12/06/24 20:30 Melatonin 5 Mg Tablet PO 5 mg HS HAJA Administration Methylprednisolone Sodium Succinate 125 mg 12/07/24 06:00 12/07/24 13:41 Methylprednisolone Sod Succ 125 Mg Vial IV PUSH 125 mg Q8HR HAJA Administration Metoprolol Tartrate 12.5 mg 12/05/24 12:00 12/07/24 13:40 Metoprolol Tartrate 12.5 Mg Tablet PO 12.5 mg Q6HR HAJA Administration Pantoprazole Sodium 40 mg 12/05/24 21:10 12/07/24 09:04 Pantoprazole 40 Mg Tablet PO 40 mg Q12HR HAJA Administration Perflutren Lipid Microsphere 0 ml 12/05/24 08:02 Perflutren Lipid Microspheres 1.5 Ml Vial Diluted To 10 Ml Total Volume IV PUSH 12/08/24 08:02 ONCE PRN adequate visualization Protocol Polyethylene Glycol 17 gm 12/04/24 20:38 Polyethylene Glycol 3350 17 Gm Powd.Pack PO BID PRN constipation Tamsulosin HCl 0.4 mg 12/04/24 21:00 12/06/24 20:30 Tamsulosin Hcl 0.4 Mg Capsule PO 0.4 mg HS HAJA Administration Valacyclovir HCl 1,000 mg 12/05/24 14:00 12/07/24 13:41 Valacyclovir Hcl 500 Mg Tablet PO 1,000 mg Q8HR HAJA Administration Radiology Results: ITS Impressions Chest CT 12/04/24 10:59 IMPRESSION: Severe bilateral interstitial lung disease, as detailed above. Volume loss within the right hemithorax. Mediastinal lymphadenopathy. Findings suggesting prior granulomatous disease. Decreased attenuation within the periphery of the lateral margin of the spleen, possibly related to bolus timing in the absence of a history of trauma for which clinical correlation is needed. Chest X-Ray 12/07/24 06:15 IMPRESSION: Stable radiographic evaluation of the chest demonstrating severe pulmonary fibrosis, as detailed above. Labs Labs: Laboratory Results - last 24 hr 12/06/24 12/06/24 12/06/24 04:02 19:47 22:17 WBC RBC Hgb Hct MCV MCH MCHC RDW Plt Count MPV Sodium Potassium Chloride Carbon Dioxide Anion Gap BUN Creatinine Estim Creat Clear Calc Estimated GFR Glucose POC Capillary Glucose 412 H 358 H Calcium Magnesium Beta-Hydroxybutyrate/Acetoacetate 0.67 H Urine Color Urine Appearance Urine pH Ur Specific [place] Urine Protein Urine Glucose (UA) Urine Ketones Ur Blood (Man) Urine Nitrate Urine Bilirubin Urine Urobilinogen Ur Leukocyte Esterase 12/07/24 12/07/24 12/07/24 03:56 05:34 08:27 WBC 6.5 RBC 3.18 L Hgb 8.9 L Hct 25.9 L MCV 81.4 MCH 28.0 MCHC 34.4 RDW 14.8 H Plt Count 169 MPV 9.4 Sodium 123 L Potassium 4.3 Chloride 95 L Carbon Dioxide 21 L Anion Gap 7 BUN 42 H D Creatinine 1.86 H Estim Creat Clear Calc 31 Estimated GFR 35 L Glucose 254 H POC Capillary Glucose 303 H Calcium 7.0 L Magnesium 1.7 Beta-Hydroxybutyrate/Acetoacetate Urine Color Yellow Urine Appearance Clear Urine pH 5.0 Ur Specific [place] 1.014 Urine Protein Negative Urine Glucose (UA) 1+ H Urine Ketones Negative Ur Blood (Man) Negative Urine Nitrate Negative Urine Bilirubin Negative Urine Urobilinogen 0.2 Ur Leukocyte Esterase Negative 12/07/24 12/07/24 10:52 13:36 WBC RBC Hgb Hct MCV MCH MCHC RDW Plt Count MPV Sodium Potassium Chloride Carbon Dioxide Anion Gap BUN Creatinine Estim Creat Clear Calc Estimated GFR Glucose POC Capillary Glucose 417 H 389 H Calcium Magnesium Beta-Hydroxybutyrate/Acetoacetate Urine Color Urine Appearance Urine pH Ur Specific [place] Urine Protein Urine Glucose (UA) Urine Ketones Ur Blood (Man) Urine Nitrate Urine Bilirubin Urine Urobilinogen Ur Leukocyte Esterase Quality VTE Prophylaxis VTE prophylaxis: pharmacologic ordered
--- NOTE | 2024-12-07 19:17 | P.PNPL_ITS ---
Progress Note: A&P Assessment and Plan (1) Acute and chronic respiratory failure: Code(s): J96.20 - Acute and chronic respiratory failure, unspecified whether with hypoxia or hypercapnia Status: Acute Assessment and Plan: Patient developed respiratory failure in October, required oxygen at discharge after being in [facility] in [place] for about a week. Returned to [facility], another pulmonary admission, then went to [facility], developed COVID with multifocal pneumonia in November 2024, has been on high flow most of this month. He was transferred to [facility] December 02, had steep increase in O2 requirement in the last 2 days. Family thinks that since he went on a Thursday night, he did not get meds, deteriorated, and came here by ambulance with increased O2 requirement. His admission CXR = severe interstitial fibrosis, possible pulmonary edema. the cardiac silhouette does not appear enlarged. He was on prednisone 20 mg at the time he was transferred to [facility] December 02. Due to his rapid deterioration, I started high dose steroids for an exacerbation of pulmonary fibrosis, 250 mg IV Q 6 hours and Lasix 40 mg IV Q 12 hours. This has been weaned, and today December 08, continued weaning with a lower dose to 40 mg IV Q 8 hours. I stopped his LAsix 40 mg IV Q 12 hours yesterday with rising BUN/creat. Today his O2 need is lower, 6 L/min at rest. 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 in [place], home for a day, back to hospital including ICU, transferred to [place] Nov 09, then to [facility] for rehab as the family could not provide the higher amounts of O2 that he needed. He was on 2 L to 5 L in the last few days until he deteriorated yesterday, came to our ER. He is now requiring higher O2, high flow 75% and 45 L.min, sat is 96%. (3) Dyspnea: Code(s): R06.00 - Dyspnea, unspecified Status: Acute Assessment and Plan: Has severe shortness worse with exertion. He developed pulmonary fibrosis with progressive hypoxemia after COVID, has had rehab, records are pending. He says that he feels a little better today. He is not using as much accessory muscles. (4) Diabetes mellitus type II, uncontrolled: Status: Acute Assessment and Plan: Aggravated by steroids. GLucose os still high, up to 351. Defer management to Dr Acevedo. Plan plan: Decrease solumedrol dose to 40 mg IV Q 8 hours. Monitor his renal function. I had to diurese him to improve oxygenation. He has diabetes, may need foxing closer to help. I sent labs to evaluate for auto immune disease, hypersensitivity panel, Rheumatoid factor, evaluate for auto immune as he has fibrosis. His COVID probably is the cause. As COVID is new, post COVID fibrosis is still being evaluated as far as options for treatment. He might be a candidate for anti- fibrotic meds, such as pirfenidone an nintedanib. Request records, again. He has been in a hospital or LTAC since October 19. He had post COVID pulmonary fibrosis, was on recent oral prednisone when admitted here December 04, appeared to have rapidly progressive fibrosis but hard to tell as we had no comparison images but he was on 2 L/min to 5 L/min days before arrival here. Subjective Date/time seen: 12/08/24 14:17 Interval history: 12/05/2024; new consult; Zack Fofana is an 79-year-old man with ILD, no history of tobacco, no history of any lung disease until he developed shortness of breath in October 2024. He was at [facility] in [facility] admitted October 19 through October 27 related to shortness of breath, family thinks he had atrial fibrillation and this was controlled with metoprolol. Went home for a short amount of time, maybe a day, returned to [facility] in [place] with hemopty sis, and was diagnosed with multifocal pneumonia secondary to COVID during this admission. He developed atrial fibrillation. He had a transesophageal cardioversion and was back in sinus rhythm. He was on Eliquis 2.5 mg b.i.d.. He was transferred to an LTAC for weaning oxygen, He was diagnosed with pulmonary fibrosis. He was re-admitted about October 28; November 03 he was in a regular room at [facility], then was transferred to November 04 to ICU [facility], deteriorated. He was on high-flow but not intubated. During this admission, he was diagnosed with COVID. November 09 he was sent to [facility] in [facility], November 09 until December 02, was stabilized, November 23 he was on 60 liters/minute and 75% FiO2. He was transferred to [facility] on December 02 for rehab. He was able to have his O2 decreased to 2 L/minute. Thursday am, he woke up, was disoriented, his heart rate was high 120, his O2 sat was low in the low 80s, but his son said that this seemed to be a little worse. He came to [place] ER with saturation 80% on 6-8 L. Chart from [facility] shows PMH including BPH, a fib, hyperlipidemia, multifocal pneumonia due to COVID. pulmonary hypertension, chronic respiratory failure, severe protein calorie malnutrition. At [facility], he was on 5 L with sat 96%. During the last week, heart rate was elevated at 120; family was not sure why. I did not see tachycardia documented in the notes from [place]. His transfer medication list from [facility] showed that he was on prednisone 20 mg po daily, propafenone 225 mg q.8 hours for atrial fib., PMH : DM 8 years ago. No chronic medical problems otherwise per family. No surgeries. : 2 years in [place]. 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 He was never evaluated for asbestosis. He had no history of lung disease when he was working. He retired around age 63. He worked in [place] for 2 or 3 years and this was 30 or 40 years ago. He had no lung issues until around [address] Elio Porter in [place]; had fluid on his lung in the nodule, the fluid resolved on its own so he did not need a thoracentesis, he went home, did not need pulmonary follow up. Tobacco: never smoker. Soc: He is to Padmini, they raised 4 children. He has not been at home over a few days since October due to his respiratory problems, and being in a hospital or LTAC/Rehab. Family hx: father at age 82, was a license registration examiner. 12/06/2024; hospital follow up; He had PAF today, informix developer saw him and started meds to control his rate, now on diltiazem drip 5 mg an hour in addition to metoprolol 12.5 mg Q 6 hours. He had wound care today for his bottom, is feeling a little better. His son Ethan is at the bedside, and Ethan's friend is visiting. The patient feels fine when he is sitting still, not exerting himself. He started high dose steroids last night Solu-medrol 250 mg IV Q 6 hours. He is on Lasix 40 mg IV Q 12 hours. Blood glucose is high, 253 to 412. Na+ is lower 122, serum CO2 is 21, lower, was 24 yesterday. He is not coughing. He has no joint pain. Appetite is increased with steroids. 12/08/24; hospital follow up; He is now on 6 L/min, and granddaughter at bedside. O2 need is lower, and he has had Lasix stopped, steroids decreased. I did not receive notes from [facility]. I spoke with them about causes for pulmonary fibrosis. He does not have a history of this before October 2024. He had COVID in November, and had worsening fibrosis afterwards. BUN 51, creat 1.75, glucose remains elevated 256 to 351. I plan to order work up for pulmonary fibrosis, TATIANA, hypersensitivity profile, anti CCP antibodies, rheumatoid factor. Was expecting to see all these results from prior admissions at [place] and [facility] in [place]. He is now on solumedrol 60 mg IV Q 8 hours. With rising BUN and creat, I will decrease again, 40 mg IV Q 8 hours. He continues to have physical therapy. CXR 12/07 was exactly the same as admission, IMPRESSION: Stable radiographic evaluation of the chest demonstrating severe pulmonary fibrosis, as detailed above. NICOLE Long shared images of his father's CXRs with the dates on his cell phone. I am looking at CXR 11/21/24 [place], not as severe as this CXR today. November 09, 2024 [facility]; not as abnormal as today, fibrosis visible, more aerated lungs in apices. * 12/05/2024 CXR : Cardiomediastinal silhouette is partially obscured. Diffuse interstitial thickening with a bilateral lower lobe, likely chronic. Small bilateral pleural effusions are also noted. Peripheral and bibasilar honeycombing is present. IMPRESSION: Re-demonstration of severe interstitial lung disease, as detailed above. document embedded image * 12/04/2024; chest CT: IMPRESSION: Severe bilateral interstitial lung disease, as detailed above. Volume loss within the right hemithorax. Mediastinal lymphadenopathy. Findings suggesting prior granulomatous disease. Decreased attenuation within the periphery of the lateral margin of the spleen, possibly related to bolus timing in the absence of a history of trauma for which clinical correlation is needed. * 12/04/2024 EKG; Sinus rhythm with incomplete right bundle-branch block, minimal ST depression. *12/05/2024, white blood cell count 5.2, hemoglobin 10.6, hematocrit 32%, platelets 150 k. Review of Systems Review of Systems: All systems reviewed & are unremarkable except as noted in HPI and below Exam Narrative: GEN: Alert, oriented, can nod to questions. He is on regular nasal cannula 6 L/min, Saturation is 92-95%. NECK: Trachea is midline CHEST: Equal air entry, symmetric excursion, decreased breath sounds posteriorly, not taking deep breaths, very deconditioned, weak CV: Distant S1S2, no m/g/r ABD : (+) bowel sounds Extremities : no clubbing, cyanosis, or edema PSYCH: overall his brain is working ok considering the massive illness, dysregulated glucose, need for high O2 amounts. Objective Data Vital Signs Vital Signs: Vital Signs - 24 hr 12/06/24 19:36 12/06/24 19:36 12/06/24 19:46 Temperature Pulse Rate 78 73 Respiratory Rate 26 H 26 H Blood Pressure Pulse Oximetry 96 Oxygen Delivery High Flow Therapy with Na Oxygen Flow Rate 55 Fraction of Inspired Oxygen 75 12/06/24 20:00 12/06/24 20:00 12/06/24 20:00 Temperature 36.5 C Pulse Rate 81 81 75 Respiratory Rate 26 H Blood Pressure 111/46 L 111/46 L Pulse Oximetry 96 Oxygen Delivery Oxygen Flow Rate Fraction of Inspired Oxygen 12/06/24 20:00 12/06/24 22:00 12/06/24 22:00 Temperature Pulse Rate 71 78 Respiratory Rate Blood Pressure 89/45 L Pulse Oximetry 90 Oxygen Delivery High Flow Therapy with Na Oxygen Flow Rate 45 Fraction of Inspired Oxygen 85 12/06/24 22:20 12/06/24 23:33 12/06/24 23:44 Temperature 35.9 C L Pulse Rate 74 77 64 Respiratory Rate 26 H Blood Pressure 90/45 L 85/40 L 85/40 L Pulse Oximetry 98 Oxygen Delivery Oxygen Flow Rate Fraction of Inspired Oxygen 12/07/24 00:00 12/07/24 00:00 12/07/24 00:47 Temperature Pulse Rate 73 78 Respiratory Rate Blood Pressure Pulse Oximetry 98 Oxygen Delivery High Flow Therapy with Na Oxygen Flow Rate 45 Fraction of Inspired Oxygen 85 12/07/24 00:48 12/07/24 01:26 12/07/24 01:34 Temperature Pulse Rate 78 79 73 Respiratory Rate 25 H 26 H Blood Pressure 99/48 L Pulse Oximetry Oxygen Delivery Oxygen Flow Rate Fraction of Inspired Oxygen 12/07/24 02:00 12/07/24 03:49 12/07/24 04:00 Temperature 36.6 C Pulse Rate 79 79 Respiratory Rate 26 H Blood Pressure 95/48 L Pulse Oximetry 94 98 Oxygen Delivery High Flow Therapy with Na Oxygen Flow Rate 45 Fraction of Inspired Oxygen 85 12/07/24 04:00 12/07/24 05:29 12/07/24 05:30 Temperature Pulse Rate 80 98 88 Respiratory Rate Blood Pressure 102/58 L Pulse Oximetry Oxygen Delivery Oxygen Flow Rate Fraction of Inspired Oxygen 12/07/24 06:00 12/07/24 08:00 12/07/24 08:00 Temperature 36.4 C L Pulse Rate 86 109 H 87 Respiratory Rate 22 H 22 H Blood Pressure 117/88 Pulse Oximetry 96 95 Oxygen Delivery High Flow Therapy with Na Oxygen Flow Rate 45 Fraction of Inspired Oxygen 75 12/07/24 08:00 12/07/24 08:08 12/07/24 08:08 Temperature Pulse Rate 87 75 Respiratory Rate 23 H Blood Pressure Pulse Oximetry 95 Oxygen Delivery High Flow Therapy with Na Oxygen Flow Rate 55 Fraction of Inspired Oxygen 75 12/07/24 08:15 12/07/24 09:00 12/07/24 09:04 Temperature Pulse Rate 73 92 Respiratory Rate 23 H Blood Pressure Pulse Oximetry Oxygen Delivery High Flow Therapy with Na Oxygen Flow Rate 55 Fraction of Inspired Oxygen 12/07/24 10:00 12/07/24 12:00 12/07/24 12:00 Temperature 36.4 C L Pulse Rate 92 89 74 Respiratory Rate 22 H 24 H Blood Pressure 149/92 H Pulse Oximetry 95 95 Oxygen Delivery High Flow Therapy with Na Oxygen Flow Rate 40 Fraction of Inspired Oxygen 75 12/07/24 12:00 12/07/24 13:40 12/07/24 13:40 Temperature Pulse Rate 93 79 Respiratory Rate Blood Pressure Pulse Oximetry 93 Oxygen Delivery High Flow Therapy with Na Oxygen Flow Rate 40 Fraction of Inspired Oxygen 55 12/07/24 13:42 12/07/24 13:56 12/07/24 14:00 Temperature Pulse Rate 74 747 H 73 Respiratory Rate 24 H 24 H Blood Pressure Pulse Oximetry Oxygen Delivery Oxygen Flow Rate Fraction of Inspired Oxygen 12/07/24 16:00 12/07/24 16:00 12/07/24 17:55 Temperature 36.4 C L Pulse Rate 81 88 92 Respiratory Rate 22 H Blood Pressure 109/60 Pulse Oximetry 98 Oxygen Delivery Oxygen Flow Rate Fraction of Inspired Oxygen 12/07/24 18:00 Temperature Pulse Rate 89 Respiratory Rate Blood Pressure Pulse Oximetry Oxygen Delivery Oxygen Flow Rate Fraction of Inspired Oxygen Intake/Output Intake/Output: Intake & Output 12/04/24 12/05/24 12/06/24 12/07/24 23:59 23:59 23:59 23:59 Intake Total 2240 3581.5 1507.9 1480 Output Total 1301 1650 3025 1900 Balance 939 1931.5 -1517.1 -420 Meds/Results Medications: Active Medications Generic Name Dose Route Start Last Admin Trade Name Freq PRN Reason Stop Dose Admin Acetaminophen 650 mg 12/04/24 20:38 Acetaminophen 325 Mg Tablet PO Q6H PRN fever or pain 1-3 Apixaban 5 mg 12/04/24 21:00 12/07/24 09:03 Apixaban 5 Mg Tablet PO 5 mg Q12HR HAJA Administration Atorvastatin Calcium 10 mg 12/04/24 21:00 12/06/24 20:30 Atorvastatin 10 Mg Tablet PO 10 mg HS HAJA Administration Benzonatate 100 mg 12/04/24 20:38 Benzonatate 100 Mg Capsule PO Q6H PRN cough Bisacodyl 10 mg 12/04/24 20:38 Bisacodyl 10 Mg Suppository RECTAL DAILY PRN constipation Dextrose 12.5 gm 12/04/24 20:40 Dextrose 50% 25 Gm/50 Ml Syringe IV PUSH PRN PRN Hypoglycemia Protocol Digoxin 500 mcg 12/05/24 09:00 12/07/24 09:04 Digoxin 250 Mcg Tablet PO 500 mcg DAILY HAJA Administration Diltiazem HCl 120 mg 12/07/24 09:00 12/07/24 09:03 Diltiazem Hcl Cd 120 Mg Cap.24hr PO 120 mg QAM HAJA Administration Fluticasone Propionate 1 spray 12/04/24 20:38 Fluticasone Propionate 0.05% Na Spr 16 Gm Btl (*Bkc) NASAL DAILY PRN allergy symptoms Furosemide 40 mg 12/06/24 09:00 12/07/24 17:55 Furosemide Inj 40 Mg/4 Ml Vial IV PUSH 40 mg BID HAJA Administration Glucagon 1 mg 12/04/24 20:40 Glucagon For Inj 1 Mg Vial IM PRN PRN Hypoglycemia Protocol Glucose 15 gm 12/04/24 20:40 Glucose Oral Gel 15 Gm Of Glucse In 37.5 Gm Tube PO PRN PRN Hypoglycemia Protocol Dextrose 1,000 mls @ 100 mls/hr 12/04/24 20:40 Dextrose 5% 1,000 Ml IVPB PRN PRN Hypoglycemia Protocol Insulin Aspart 2 - 5 units 12/05/24 08:00 12/07/24 15:55 Insulin Aspart (*Bkc) 100 Units/Ml SUB-Q 5 units TIDWM HAJA Administration Protocol Insulin Aspart 1 - 2 units 12/04/24 21:00 12/06/24 20:31 Insulin Aspart (*Bkc) 100 Units/Ml SUB-Q Not Given HS HAJA Protocol Insulin Glargine 20 units 12/05/24 09:00 12/07/24 09:04 Insulin Glargine (*Bkc) 100 Units/Ml SUB-Q 20 units DAILY HAJA Administration Levalbuterol HCl 1.25 mg 12/05/24 14:00 12/07/24 13:39 Levalbuterol Neb 1.25 Mg/3 Ml INHALATION 1.25 mg Q6HRT HAJA Administration Magnesium Hydroxide 30 ml 12/04/24 20:38 Magnesium Hydroxide Susp 30 Ml Udc PO HS PRN constipation Melatonin 5 mg 12/04/24 21:00 12/06/24 20:30 Melatonin 5 Mg Tablet PO 5 mg HS HAJA Administration Methylprednisolone Sodium Succinate 125 mg 12/07/24 06:00 12/07/24 13:41 Methylprednisolone Sod Succ 125 Mg Vial IV PUSH 125 mg Q8HR HAJA Administration Metoprolol Tartrate 12.5 mg 12/05/24 12:00 12/07/24 17:55 Metoprolol Tartrate 12.5 Mg Tablet PO 12.5 mg Q6HR HAJA Administration Pantoprazole Sodium 40 mg 12/05/24 21:10 12/07/24 09:04 Pantoprazole 40 Mg Tablet PO 40 mg Q12HR HAJA Administration Perflutren Lipid Microsphere 0 ml 12/05/24 08:02 Perflutren Lipid Microspheres 1.5 Ml Vial Diluted To 10 Ml Total Volume IV PUSH 12/08/24 08:02 ONCE PRN adequate visualization Protocol Polyethylene Glycol 17 gm 12/04/24 20:38 Polyethylene Glycol 3350 17 Gm Powd.Pack PO BID PRN constipation Tamsulosin HCl 0.4 mg 12/04/24 21:00 12/06/24 20:30 Tamsulosin Hcl 0.4 Mg Capsule PO 0.4 mg HS HAJA Administration Valacyclovir HCl 1,000 mg 12/05/24 14:00 12/07/24 13:41 Valacyclovir Hcl 500 Mg Tablet PO 1,000 mg Q8HR HAJA Administration Radiology Results: ITS Impressions Chest CT 12/04/24 10:59 IMPRESSION: Severe bilateral interstitial lung disease, as detailed above. Volume loss within the right hemithorax. Mediastinal lymphadenopathy. Findings suggesting prior granulomatous disease. Decreased attenuation within the periphery of the lateral margin of the spleen, possibly related to bolus timing in the absence of a history of trauma for which clinical correlation is needed. Chest X-Ray 12/07/24 06:15 IMPRESSION: Stable radiographic evaluation of the chest demonstrating severe pulmonary fibrosis, as detailed above. Labs Labs: Laboratory Results - last 24 hr 12/06/24 12/06/24 12/06/24 04:02 19:47 22:17 WBC RBC Hgb Hct MCV MCH MCHC RDW Plt Count MPV Sodium Potassium Chloride Carbon Dioxide Anion Gap BUN Creatinine Estim Creat Clear Calc Estimated GFR Glucose POC Capillary Glucose 412 H 358 H Calcium Magnesium Beta-Hydroxybutyrate/Acetoacetate 0.67 H Urine Color Urine Appearance Urine pH Ur Specific Peyton Urine Protein Urine Glucose (UA) Urine Ketones Ur Blood (Man) Urine Nitrate Urine Bilirubin Urine Urobilinogen Ur Leukocyte Esterase 12/07/24 12/07/24 12/07/24 03:56 05:34 08:27 WBC 6.5 RBC 3.18 L Hgb 8.9 L Hct 25.9 L MCV 81.4 MCH 28.0 MCHC 34.4 RDW 14.8 H Plt Count 169 MPV 9.4 Sodium 123 L Potassium 4.3 Chloride 95 L Carbon Dioxide 21 L Anion Gap 7 BUN 42 H D Creatinine 1.86 H Estim Creat Clear Calc 31 Estimated GFR 35 L Glucose 254 H POC Capillary Glucose 303 H Calcium 7.0 L Magnesium 1.7 Beta-Hydroxybutyrate/Acetoacetate Urine Color Yellow Urine Appearance Clear Urine pH 5.0 Ur Specific Peyton 1.014 Urine Protein Negative Urine Glucose (UA) 1+ H Urine Ketones Negative Ur Blood (Man) Negative Urine Nitrate Negative Urine Bilirubin Negative Urine Urobilinogen 0.2 Ur Leukocyte Esterase Negative 12/07/24 12/07/24 12/07/24 10:52 13:36 15:44 WBC RBC Hgb Hct MCV MCH MCHC RDW Plt Count MPV Sodium Potassium Chloride Carbon Dioxide Anion Gap BUN Creatinine Estim Creat Clear Calc Estimated GFR Glucose POC Capillary Glucose 417 H 389 H 407 H Calcium Magnesium Beta-Hydroxybutyrate/Acetoacetate Urine Color Urine Appearance Urine pH Ur Specific Peyton Urine Protein Urine Glucose (UA) Urine Ketones Ur Blood (Man) Urine Nitrate Urine Bilirubin Urine Urobilinogen Ur Leukocyte Esterase
[2024-12-07] MEDS: ATORVASTATIN 10 MG TABLET PO (20:34)
[2024-12-07] MEDS: TAMSULOSIN HCL 0.4 MG CAPSULE PO (20:34)
[2024-12-07] MEDS: MELATONIN 5 MG TABLET PO (20:34)
[2024-12-08] VITALS (24 sets, daily range): BP systolic 93–114; BP diastolic 39–49; PULSE 73–112; RESP 18–25; TEMP 36.4–36.8; O2SAT 90–96
[2024-12-08 04:07] LABS: Osmolality, Serum 269 mOsmol/kg (280-301)
[2024-12-08 04:27] LABS: Hematocrit 24.7 % (42.0-52.0); Hemoglobin 8.5 g/dL (14.0-18.0); Mean Corpuscular HGB Conc 34.4 g/dl (32-36); Mean Corpuscular Hemoglobin 27.7 pg (26-34); Mean Corpuscular Volume 80.5 fl (80-100); Platelet Count Result 173 k/mm3 (150-375); Red Blood Count 3.07 M/mm3 (4.6-6.20); White Blood Count 5.5 K/mm3 (4.5-10.0)
[2024-12-08 04:40] LABS: Anion Gap 6 mmol/L (4-12); Blood Urea Nitrogen 51 mg/dL (9-20); Calcium 7.2 mg/dL (8.4-10.2); Carbon Dioxide 22 mmol/L (22-30); Chloride 95 mmol/L (98-107); Estimated CRCL calculation 33 ml/min; Estimated Glomerular Filt Rate 38; Glucose 209 mg/dL (65-110); Magnesium 1.8 mg/dL (1.6-2.3); Potassium 4.3 mmol/L (3.4-5.0); Sodium 123 mmol/L (137-145)
[2024-12-08] MEDS: INSULIN GLARGINE (*BKC) 100 UNITS/ML 20 UNITS SUB-Q (10:07)
[2024-12-08] MEDS: INSULIN ASPART (*BKC) 100 UNITS/ML SUB-Q ×4 (10:07→20:50)
[2024-12-08 10:08] LABS: Osmolality, Urine 559 mOsmol/kg (.)
[2024-12-08] MEDS: dilTIAZem HCL CD 120 MG CAP.24HR PO (10:11)
[2024-12-08] MEDS: DIGOXIN 250 MCG TABLET 500 MCG PO (10:11)
[2024-12-08] MEDS: PANTOPRAZOLE 40 MG TABLET PO ×2 (10:11→20:49)
[2024-12-08] MEDS: APIXABAN 5 MG TABLET PO (10:11)
[2024-12-08] MEDS: INSULIN GLARGINE (*BKC) 100 UNITS/ML SUB-Q (12:20)
[2024-12-08] MEDS: ACETAMINOPHEN 325 MG TABLET 650 MG PO (12:29)
--- NOTE | 2024-12-08 15:00 | PM.IMPN ---
Progress Note: A&P Assessment and Plan (1) Hypotension: Code(s): I95.9 - Hypotension, unspecified Status: Acute Assessment and Plan: Pt's BP has been running soft 87-109/48-91. Continue Telemetry no Pnuemomnia on chest x ray titrate home meds with clinical course Continue IVF and monitor closely (2) Dyspnea: Code(s): R06.00 - Dyspnea, unspecified Status: Acute Assessment and Plan: Likely acute on chronic and likely invoked by the decreased baseline supplemental oxygen at [facility]. Continue pt's baseline 5L-6L per ID supplemental oxygen. Rhonchi present on physical exam. Will order Duonebs Q6 hrs scheduled and prn Albuterol nebs. Continue IV Steroid Consulted Pulmonology (3) Hyponatremia: Code(s): E87.1 - Hypo-osmolality and hyponatremia Status: Acute Assessment and Plan: Sodium is 127 with rehydration urine studies pending (4) Impaired skin integrity: Code(s): R23.9 - Unspecified skin changes Status: Acute Assessment and Plan: Wounds noted to Coccyx and buttocks. Pics taken by nurse. Consult Wound nurse Offload weight on affected area. For rash around abdomen, suggest not wearing a depends/adult brief. (5) Interstitial lung disease: Code(s): J84.9 - Interstitial pulmonary disease, unspecified Status: Chronic Assessment and Plan: contineu above care (6) Atrial fibrillation: Code(s): I48.91 - Unspecified atrial fibrillation Status: Chronic Assessment and Plan: Unable to use Beta theresa at this time secondary to Hypotension as noted in #1. Continue Eliquis restart MEtoprolol adn Digoxin adn monitor blood pressure EHCO pending Plan patient with history of ILD most likely 2/2 COVID infection he had recently and possible environmental chemical exposure, patient is seen by his beehive kiln charcoal burner patient is treated with high dose steroids and loading dose of methylprednisone 250mg IV q6 for 1 day and taper it down to 125mg q8, the beehive kiln charcoal burner is doing investigation for the cause of pulmonary fibrosis, and also taper down the steroids to 40mg IV q8, patient oxygen demand in improving and now he is on 6L, patient stats feeling better compared to when he arrived, patient has history of diabetes his blood sugars are running high due to steroids, will monitor and correct it, repeat chest x-ray today showed: Redemonstration of diffuse interstitial thickening with a bilateral lower lobe distribution, likely chronic. Peripheral and bibasilar honeycombing. Bibasilar pleural thickening, right greater than left. patient stats feeling litter better compared to when he arrived, will continue to monitor, patient will be seeing by beehive kiln charcoal burner, DVT prohylaxis on Eliquis Subjective Date/time seen: 12/08/24 15:00 Interval history: Dyspnea H&P-Narrative: This is an 79 year male patient with past medical history significant pulmonary fibrosis status post COVID diagnosis on 6 L oxygen, atrial fibrillation on and control metoprolol who currently resides at [facility] Where he is currently at for rehabilitation. Prior to going to [facility], he was in the hospital at [place] and transferred to [place] and ultimately transferred to [facility]. Pt alert, oriented x4 and without any acute complaint. He was sent to the ER with complaints of hypoxia and dyspnea after nursing service found him with low oxygen sats in his room, noted to be on 2L. He was sent to the ER where he required a few moments of BiPap and has ultimately recovered to his baseline on 5L Supplemental oxygen. His EKG upon arrival to the ER showed a variable rate/rhythm that was either ST or A-flutter/tach with rates from low 100s-120s. Although he has Metoprolol ordered for rate control as he does have a hx of A-fib, it was not given as pt's BP has been on the lower side. Pt has no respiratory complaints and no concerns of CP. His only complaint is pain in his coccyx region from breakdown. In the emergency room fall was performed EKG showing either sinus tachycardia versus a flutter with RVR, however unable to be controlled with beta blockade as patient's blood pressure has been low. CT of the chest showing severe bilateral interstitial lung disease with mediastinal lymphadenopathy present. CBC unremarkable with WBC is 5.3 and intact H&H. Metabolic panel showing hyponatremia at 1:23 a.m.. Renal function impaired with creatinine and BUN of 1.4/27, however we do not know patient's baseline as there is none historical in our system. Glucose noted to be 72. Urinalysis was unremarkable and coags are normal. ER physician was concerned for potential dehydration component contributing to patient's tachycardia. He was given a Liter of LR and albuterol nebulizer. It should be noted that we do not have any historical information of PMH on this pt in our EMR system for comparison and trending purposes. He tells me that he does not see a regular Ict Business Analyst for his ILD. He also does not see a Radial Drill Press Operator despite his hx of A-fib. patient with history of ILD most likely 2/2 COVID infection he had recently and possible environmental chemical exposure, patient is seen by his beehive kiln charcoal burner patient is treated with high dose steroids and loading dose of methylprednisone 250mg IV q6 for 1 day and taper it down to 125mg q8, the beehive kiln charcoal burner is doing investigation for the cause of pulmonary fibrosis, and also taper down the steroids to 40mg IV q8, patient oxygen demand in improving and now he is on 6L, patient stats feeling better compared to when he arrived, patient has history of diabetes his blood sugars are running high due to steroids, will monitor and correct it, repeat chest x-ray today showed: Redemonstration of diffuse interstitial thickening with a bilateral lower lobe distribution, likely chronic. Peripheral and bibasilar honeycombing. Bibasilar pleural thickening, right greater than left. patient stats feeling litter better compared to when he arrived, will continue to monitor, patient will be seeing by beehive kiln charcoal burner, Review of Systems Review of Systems: All systems reviewed & are unremarkable except as noted in HPI and below Exam Narrative: Patient is comfortable, NAD HEENT: eyes are clear and none icteric LUNGS: Bilateral fair air entry with harsh breath sounds HEART: RR S1S2 ABD: BS+, Soft and nontender Lower extremities: no edema SKIN: nonjaundiced Neuro: grossly intact. Objective Data Vital Signs Vital Signs: Vital Signs - 24 hr 12/07/24 16:00 12/07/24 16:12/07/24 17:55 Temperature 36.4 C L Pulse Rate 81 88 92 Respiratory Rate 22 H Blood Pressure 109/60 Pulse Oximetry 98 Oxygen Delivery Oxygen Flow Rate Fraction of Inspired Oxygen 12/07/24 18:00 12/07/24 20:00 12/07/24 20:00 Temperature Pulse Rate 89 84 Respiratory Rate Blood Pressure Pulse Oximetry 95 Oxygen Delivery High Flow Therapy with Na Oxygen Flow Rate 40 Fraction of Inspired Oxygen 57 12/07/24 20:04 12/07/24 20:10 12/07/24 20:11 Temperature Pulse Rate 86 87 86 Respiratory Rate 24 H 24 H 24 H Blood Pressure Pulse Oximetry 95 Oxygen Delivery High Flow Therapy with Na Oxygen Flow Rate 40 Fraction of Inspired Oxygen 55 12/07/24 22:00 12/07/24 23:42 12/08/24 00:00 Temperature 36.4 C L 36.8 C Pulse Rate 81 92 92 Respiratory Rate 17 24 H Blood Pressure 103/72 93/46 L Pulse Oximetry 92 94 Oxygen Delivery Oxygen Flow Rate Fraction of Inspired Oxygen 12/08/24 00:00 12/08/24 00:00 12/08/24 01:55 Temperature Pulse Rate 83 82 Respiratory Rate 24 H Blood Pressure Pulse Oximetry 96 Oxygen Delivery High Flow Therapy with Na Oxygen Flow Rate 40 Fraction of Inspired Oxygen 57 12/08/24 02:00 12/08/24 02:02 12/08/24 02:04 Temperature Pulse Rate 87 90 90 Respiratory Rate 24 H 24 H Blood Pressure Pulse Oximetry 93 Oxygen Delivery High Flow Therapy with Na Oxygen Flow Rate 40 Fraction of Inspired Oxygen 50 12/08/24 04:00 12/08/24 04:00 12/08/24 04:00 Temperature 36.6 C Pulse Rate 85 79 Respiratory Rate 24 H Blood Pressure 107/46 L Pulse Oximetry 90 90 Oxygen Delivery High Flow Therapy with Na Oxygen Flow Rate 40 Fraction of Inspired Oxygen 57 12/08/24 06:00 12/08/24 06:02 12/08/24 06:04 Temperature Pulse Rate 85 93 93 Respiratory Rate 20 20 Blood Pressure Pulse Oximetry 96 Oxygen Delivery High Flow Therapy with Na Oxygen Flow Rate 40 Fraction of Inspired Oxygen 50 12/08/24 08:00 12/08/24 08:00 12/08/24 08:00 Temperature 36.6 C Pulse Rate 101 H 112 H Respiratory Rate 24 H Blood Pressure 104/39 L Pulse Oximetry 92 91 Oxygen Delivery High Flow Therapy with Na Oxygen Flow Rate 40 Fraction of Inspired Oxygen 51 12/08/24 10:00 12/08/24 10:11 12/08/24 11:44 Temperature 36.5 C Pulse Rate 78 98 90 Respiratory Rate 24 H Blood Pressure 114/49 L Pulse Oximetry 93 Oxygen Delivery Oxygen Flow Rate Fraction of Inspired Oxygen 12/08/24 12:00 12/08/24 13:47 12/08/24 13:52 Temperature Pulse Rate 83 85 85 Respiratory Rate 20 20 Blood Pressure Pulse Oximetry Oxygen Delivery Oxygen Flow Rate Fraction of Inspired Oxygen 12/08/24 14:00 12/08/24 14:43 Temperature Pulse Rate 73 Respiratory Rate Blood Pressure Pulse Oximetry 95 Oxygen Delivery High Flow Nasal Cannula Oxygen Flow Rate 6 Fraction of Inspired Oxygen Intake/Output Intake/Output: Intake & Output 12/05/24 12/06/24 12/07/24 12/08/24 23:59 23:59 23:59 23:59 Intake Total 3581.5 1507.9 1480 200 Output Total 1650 3025 1900 1999 Balance 1931.5 -1517.1 -420 -1800 Meds/Results Medications: Active Medications Generic Name Dose Route Start Last Admin Trade Name Freq PRN Reason Stop Dose Admin Acetaminophen 650 mg 12/04/24 20:38 12/08/24 12:29 Acetaminophen 325 Mg Tablet PO 650 mg Q6H PRN Administration fever or pain 1-3 Atorvastatin Calcium 10 mg 12/04/24 21:00 12/07/24 20:34 Atorvastatin 10 Mg Tablet PO 10 mg HS HAJA Administration Benzonatate 100 mg 12/04/24 20:38 Benzonatate 100 Mg Capsule PO Q6H PRN cough Bisacodyl 10 mg 12/04/24 20:38 Bisacodyl 10 Mg Suppository RECTAL DAILY PRN constipation Dextrose 12.5 gm 12/04/24 20:40 Dextrose 50% 25 Gm/50 Ml Syringe IV PUSH PRN PRN Hypoglycemia Protocol Digoxin 500 mcg 12/05/24 09:00 12/08/24 10:11 Digoxin 250 Mcg Tablet PO 500 mcg DAILY HAJA Administration Diltiazem HCl 120 mg 12/07/24 09:00 12/08/24 10:11 Diltiazem Hcl Cd 120 Mg Cap.24hr PO 120 mg QAM HAJA Administration Fluticasone Propionate 1 spray 12/04/24 20:38 Fluticasone Propionate 0.05% Na Spr 16 Gm Btl (*Bkc) NASAL DAILY PRN allergy symptoms Glucagon 1 mg 12/04/24 20:40 Glucagon For Inj 1 Mg Vial IM PRN PRN Hypoglycemia Protocol Glucose 15 gm 12/04/24 20:40 Glucose Oral Gel 15 Gm Of Glucse In 37.5 Gm Tube PO PRN PRN Hypoglycemia Protocol Dextrose 1,000 mls @ 100 mls/hr 12/04/24 20:40 Dextrose 5% 1,000 Ml IVPB PRN PRN Hypoglycemia Protocol Insulin Aspart 3 - 6 units 12/08/24 11:47 12/08/24 12:20 Insulin Aspart (*Bkc) 100 Units/Ml SUB-Q 6 units TIDWM HAJA Administration Protocol Insulin Aspart 3 - 6 units 12/08/24 21:00 Insulin Aspart (*Bkc) 100 Units/Ml SUB-Q HS HAJA Protocol Insulin Glargine 20 units 12/05/24 09:00 12/08/24 10:07 Insulin Glargine (*Bkc) 100 Units/Ml SUB-Q 20 units DAILY HAJA Administration Levalbuterol HCl 1.25 mg 12/05/24 14:00 12/08/24 13:47 Levalbuterol Neb 1.25 Mg/3 Ml INHALATION 1.25 mg Q6HRT HAJA Administration Magnesium Hydroxide 30 ml 12/04/24 20:38 Magnesium Hydroxide Susp 30 Ml Udc PO HS PRN constipation Melatonin 5 mg 12/04/24 21:00 12/07/24 20:34 Melatonin 5 Mg Tablet PO 5 mg HS HAJA Administration Methylprednisolone Sodium Succinate 40 mg 12/08/24 22:00 Methylprednisolone Sod Succ 125 Mg Vial IV PUSH Q8HR HAJA Metoprolol Tartrate 12.5 mg 12/05/24 12:00 12/08/24 05:02 Metoprolol Tartrate 12.5 Mg Tablet PO Not Given Q6HR HAJA Pantoprazole Sodium 40 mg 12/05/24 21:10 12/08/24 10:11 Pantoprazole 40 Mg Tablet PO 40 mg Q12HR HAJA Administration Polyethylene Glycol 17 gm 12/04/24 20:38 Polyethylene Glycol 3350 17 Gm Powd.Pack PO BID PRN constipation Tamsulosin HCl 0.4 mg 12/04/24 21:00 12/07/24 20:34 Tamsulosin Hcl 0.4 Mg Capsule PO 0.4 mg HS HAJA Administration Valacyclovir HCl 1,000 mg 12/08/24 21:00 Valacyclovir Hcl 500 Mg Tablet PO 12/11/24 21:01 Q12HR [facility] Radiology Results: ITS Impressions Chest CT 12/04/24 10:59 IMPRESSION: Severe bilateral interstitial lung disease, as detailed above. Volume loss within the right hemithorax. Mediastinal lymphadenopathy. Findings suggesting prior granulomatous disease. Decreased attenuation within the periphery of the lateral margin of the spleen, possibly related to bolus timing in the absence of a history of trauma for which clinical correlation is needed. Chest X-Ray 12/07/24 06:15 IMPRESSION: Stable radiographic evaluation of the chest demonstrating severe pulmonary fibrosis, as detailed above. Labs Labs: Laboratory Results - last 24 hr 12/05/24 12/05/24 12/07/24 08:54 18:53 15:44 WBC RBC Hgb Hct MCV MCH MCHC RDW Plt Count MPV Sodium Potassium Chloride Carbon Dioxide Anion Gap BUN Creatinine Estim Creat Clear Calc Estimated GFR Glucose POC Capillary Glucose 407 H Serum Osmolality 269 L Calcium Magnesium Urine Osmolality 559 12/07/24 12/08/24 12/08/24 20:20 03:45 07:58 WBC 5.5 RBC 3.07 L Hgb 8.5 L Hct 24.7 L MCV 80.5 MCH 27.7 MCHC 34.4 RDW 14.6 H Plt Count 173 MPV 9.2 Sodium 123 L Potassium 4.3 Chloride 95 L Carbon Dioxide 22 Anion Gap 6 BUN 51 H Creatinine 1.75 H Estim Creat Clear Calc 33 Estimated GFR 38 L Glucose 209 H POC Capillary Glucose 316 H 264 H Serum Osmolality Calcium 7.2 L Magnesium 1.8 Urine Osmolality 12/08/24 11:20 WBC RBC Hgb Hct MCV MCH MCHC RDW Plt Count MPV Sodium Potassium Chloride Carbon Dioxide Anion Gap BUN Creatinine Estim Creat Clear Calc Estimated GFR Glucose POC Capillary Glucose 351 H Serum Osmolality Calcium Magnesium Urine Osmolality Quality VTE Prophylaxis VTE prophylaxis: pharmacologic ordered
[2024-12-08] MEDS: TAMSULOSIN HCL 0.4 MG CAPSULE PO (20:49)
[2024-12-08] MEDS: MELATONIN 5 MG TABLET PO (20:49)
[2024-12-08] MEDS: ATORVASTATIN 10 MG TABLET PO (20:49)
[2024-12-09] VITALS (32 sets, daily range): BP systolic 102–122; BP diastolic 43–63; PULSE 66–91; RESP 18–25; TEMP 36.4–36.8; O2SAT 92–99
[2024-12-09 04:24] LABS: Hematocrit 25.8 % (42.0-52.0); Hemoglobin 8.7 g/dL (14.0-18.0); Mean Corpuscular HGB Conc 33.7 g/dl (32-36); Mean Corpuscular Hemoglobin 27.6 pg (26-34); Mean Corpuscular Volume 81.9 fl (80-100); Platelet Count Result 204 k/mm3 (150-375); Red Blood Count 3.15 M/mm3 (4.6-6.20); White Blood Count 5.8 K/mm3 (4.5-10.0)
[2024-12-09] MEDS: ACETAMINOPHEN 325 MG TABLET 650 MG PO (04:32)
[2024-12-09 04:51] LABS: Anion Gap 5 mmol/L (4-12); Blood Urea Nitrogen 43 mg/dL (9-20); Calcium 7.4 mg/dL (8.4-10.2); Carbon Dioxide 25 mmol/L (22-30); Chloride 92 mmol/L (98-107); Estimated CRCL calculation 42 ml/min; Estimated Glomerular Filt Rate 51; Glucose 181 mg/dL (65-110); Magnesium 2.0 mg/dL (1.6-2.3); Potassium 4.5 mmol/L (3.4-5.0); Sodium 122 mmol/L (137-145)
[2024-12-09] MEDS: INSULIN GLARGINE (*BKC) 100 UNITS/ML 20 UNITS SUB-Q (08:52)
[2024-12-09] MEDS: DIGOXIN 250 MCG TABLET 500 MCG PO (08:53)
[2024-12-09] MEDS: dilTIAZem HCL CD 120 MG CAP.24HR PO (08:53)
[2024-12-09] MEDS: PANTOPRAZOLE 40 MG TABLET PO ×2 (08:53→20:35)
--- NOTE | 2024-12-09 09:04 | PCNWS ---
Weekly nutritional screen. Patient is tolerating current Heart Healthy diet with adequate intake, 50-100%. No weight loss reported. No nutritional needs at this time.
[2024-12-09] MEDS: INSULIN ASPART (*BKC) 100 UNITS/ML SUB-Q ×3 (11:36→20:36)
--- NOTE | 2024-12-09 13:37 | P.PNIM_ITS ---
Progress Note: A&P Assessment and Plan (1) Hypotension: Code(s): I95.9 - Hypotension, unspecified Status: Acute Assessment and Plan: * Pt's BP has been running soft 87-109/48-91. * Continue Telemetry no Pnuemomnia on chest x ray titrate home meds with clinical course Continue IVF and monitor closely (2) Dyspnea: Code(s): R06.00 - Dyspnea, unspecified Status: Acute Assessment and Plan: * Likely acute on chronic and likely invoked by the decreased baseline supplemental oxygen at care home. * Continue pt's baseline 5L-6L per [place] supplemental oxygen. * Rhonchi present on physical exam. Will order Duonebs Q6 hrs scheduled and prn Albuterol nebs. * Continue IV Steroid * Consulted Pulmonology (3) Hyponatremia: Code(s): E87.1 - Hypo-osmolality and hyponatremia Status: Acute Assessment and Plan: * Sodium is 127 * with rehydration * urine studies pending (4) Impaired skin integrity: Code(s): R23.9 - Unspecified skin changes Status: Acute Assessment and Plan: * Wounds noted to Coccyx and buttocks. Pics taken by nurse. * Consult Wound nurse * Offload weight on affected area. * For rash around abdomen, suggest not wearing a depends/adult brief. (5) Interstitial lung disease: Code(s): J84.9 - Interstitial pulmonary disease, unspecified Status: Chronic Assessment and Plan: contineu above care (6) Atrial fibrillation: Code(s): I48.91 - Unspecified atrial fibrillation Status: Chronic Assessment and Plan: * Unable to use Beta theresa at this time secondary to Hypotension as noted in #1. * Continue Eliquis * restart MEtoprolol adn Digoxin adn monitor blood pressure * EHCO pending Plan This is an 79 year male patient with past medical history significant pulmonary fibrosis status post COVID diagnosis on 6 L oxygen, atrial fibrillation on and control metoprolol who currently resides at [facility] Where he is currently at for rehabilitation. Prior to going to [facility], he was in the hospital at [place] and transferred to [place] and ultimately transferred to [facility]. Pt alert, oriented x4 and without any acute complaint. He was sent to the ER with complaints of hypoxia and dyspnea after nursing service found him with low oxygen sats in his room, noted to be on 2L. He was sent to the ER where he required a few moments of BiPap and has ultimately recovered to his baseline on 5L Supplemental oxygen. His EKG upon arrival to the ER showed a variable rate/rhythm that was either ST or A-flutter/tach with rates from low 100s-120s. Although he has Metoprolol ordered for rate control as he does have a hx of A- fib, it was not given as pt's BP has been on the lower side. Pt has no respiratory complaints and no concerns of CP. His only complaint is pain in his coccyx region from breakdown. In the emergency room fall was performed EKG showing either sinus tachycardia versus a flutter with RVR, however unable to be controlled with beta blockade as patient's blood pressure has been low. CT of the chest showing severe bilateral interstitial lung disease with mediastinal lymphadenopathy present. CBC unremarkable with WBC is 5.3 and intact H&H. Metabolic panel showing hyponatremia at 1:23 a.m.. Renal function impaired with creatinine and BUN of 1.4/27, however we do not know patient's baseline as there is none historical in our system. Glucose noted to be 72. Urinalysis was unremarkable and coags are normal. ER physician was concerned for potential dehydration component contributing to patient's tachycardia. He was given a Liter of LR and albuterol nebulizer. patient with history of ILD most likely 2/2 COVID infection he had recently and possible environmental chemical exposure, patient is seen by his blasting helper patient is treated with high dose steroids and loading dose of methylprednisone 250mg IV q6 for 1 day and taper it down to 125mg q8, the blasting helper is doing investigation for the cause of pulmonary fibrosis, and also taper down the steroids to 40mg IV q8, patient oxygen demand in improving still on Airvo. Taper/wean as tolerated Redemonstration of diffuse interstitial thickening with a bilateral lower lobe distribution, likely chronic. Peripheral and bibasilar honeycombing. Bibasilar pleural thickening, right greater than left. Pulmonary following AFib paroxysmal on propafenone digoxin and metoprolol anticoagulated with apixaban.. 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 Currently rate controlled on metoprolol and diltiazem. Echo with EF 70% aortic valve not well visualized but does not appear to have any hemodynamically significant aortic stenosis no significant other valvular abnormalities. Hyponatremia 122 add salt tablet looks euvolemic. TSH normal DVT prohylaxis on Eliquis Code status full code Subjective Date/time seen: 12/09/24 13:37 Interval history: No overnight events. He is still on Airvo. When it to high-flow nasal cannula 15 L yesterday. Not much cough. No leg swelling. Review of Systems Review of Systems: All systems reviewed & are unremarkable except as noted in HPI and below Exam Narrative: Patient is comfortable, NAD HEENT: eyes are clear and none icteric LUNGS: Bilateral fair air entry with harsh breath sounds HEART: RR S1S2 ABD: BS+, Soft and nontender Lower extremities: no edema SKIN: nonjaundiced Neuro: grossly intact. Objective Data Vital Signs Vital Signs: Vital Signs - 24 hr 12/08/24 13:47 12/08/24 13:52 12/08/24 14:00 Temperature Pulse Rate 85 85 73 Respiratory Rate 20 20 Blood Pressure Pulse Oximetry Oxygen Delivery Oxygen Flow Rate Fraction of Inspired Oxygen 12/08/24 14:43 12/08/24 16:00 12/08/24 16:00 Temperature 97.6 F Pulse Rate 86 81 Respiratory Rate 25 H Blood Pressure 100/46 L Pulse Oximetry 95 92 Oxygen Delivery High Flow Nasal Cannula Oxygen Flow Rate 6 Fraction of Inspired Oxygen 12/08/24 18:00 12/08/24 20:00 12/08/24 20:00 Temperature 97.8 F Pulse Rate 81 77 Respiratory Rate 18 Blood Pressure 107/48 L Pulse Oximetry 91 90 Oxygen Delivery High Flow Therapy with Na Oxygen Flow Rate 30 Fraction of Inspired Oxygen 12/08/24 20:00 12/08/24 20:28 12/08/24 20:28 Temperature Pulse Rate 73 77 Respiratory Rate 24 H Blood Pressure Pulse Oximetry 90 Oxygen Delivery High Flow Therapy with Na Oxygen Flow Rate 30 Fraction of Inspired Oxygen 12/08/24 20:39 12/08/24 22:00 12/09/24 00:00 Temperature 97.8 F Pulse Rate 82 77 78 Respiratory Rate 24 H 18 Blood Pressure 105/61 Pulse Oximetry 95 Oxygen Delivery Oxygen Flow Rate Fraction of Inspired Oxygen 12/09/24 00:00 12/09/24 00:00 12/09/24 01:40 Temperature Pulse Rate 73 90 Respiratory Rate 20 Blood Pressure Pulse Oximetry 95 Oxygen Delivery High Flow Therapy with Na Oxygen Flow Rate 30 Fraction of Inspired Oxygen 60 12/09/24 01:44 12/09/24 02:00 12/09/24 04:00 Temperature 98.1 F Pulse Rate 91 79 86 Respiratory Rate 20 18 Blood Pressure 111/50 L Pulse Oximetry 92 Oxygen Delivery Oxygen Flow Rate Fraction of Inspired Oxygen 12/09/24 04:00 12/09/24 04:00 12/09/24 06:00 Temperature Pulse Rate 77 87 Respiratory Rate Blood Pressure Pulse Oximetry 92 Oxygen Delivery High Flow Therapy with Na Oxygen Flow Rate 30 Fraction of Inspired Oxygen 60 12/09/24 07:50 12/09/24 08:00 12/09/24 08:00 Temperature 97.5 F L Pulse Rate 82 80 Respiratory Rate 24 H Blood Pressure 102/46 L Pulse Oximetry 98 95 Oxygen Delivery High Flow Nasal Cannula Oxygen Flow Rate 30 Fraction of Inspired Oxygen 60 12/09/24 08:20 12/09/24 08:23 12/09/24 08:24 Temperature Pulse Rate 89 89 81 Respiratory Rate 20 20 Blood Pressure Pulse Oximetry 95 Oxygen Delivery High Flow Therapy with Na Oxygen Flow Rate 30 Fraction of Inspired Oxygen 64 12/09/24 08:53 12/09/24 10:00 12/09/24 10:05 Temperature Pulse Rate 81 85 Respiratory Rate Blood Pressure Pulse Oximetry Oxygen Delivery High Flow Therapy with Na Oxygen Flow Rate 30 Fraction of Inspired Oxygen 12/09/24 11:59 12/09/24 12:00 12/09/24 12:00 Temperature 97.9 F Pulse Rate 76 84 Respiratory Rate 25 H Blood Pressure 117/47 L Pulse Oximetry 97 97 Oxygen Delivery High Flow Therapy with Na Oxygen Flow Rate 30 Fraction of Inspired Oxygen 64 Intake/Output Intake/Output: Intake & Output 12/06/24 12/07/24 12/08/24 12/09/24 23:59 23:59 23:59 23:59 Intake Total 1507.9 1480 250 600 Output Total 3025 1900 2700 1300 Balance -1517.1 -420 -2450 -700 Meds/Results Medications: Active Medications Generic Name Dose Route Start Last Admin Trade Name Freq PRN Reason Stop Dose Admin Acetaminophen 650 mg 12/04/24 20:38 12/09/24 04:32 Acetaminophen 325 Mg Tablet PO 650 mg Q6H PRN Administration fever or pain 1-3 Atorvastatin Calcium 10 mg 12/04/24 21:00 12/08/24 20:49 Atorvastatin 10 Mg Tablet PO 10 mg HS HAJA Administration Benzonatate 100 mg 12/04/24 20:38 Benzonatate 100 Mg Capsule PO Q6H PRN cough Bisacodyl 10 mg 12/04/24 20:38 Bisacodyl 10 Mg Suppository RECTAL DAILY PRN constipation Dextrose 12.5 gm 12/04/24 20:40 Dextrose 50% 25 Gm/50 Ml Syringe IV PUSH PRN PRN Hypoglycemia Protocol Digoxin 500 mcg 12/05/24 09:00 12/09/24 08:53 Digoxin 250 Mcg Tablet PO 500 mcg DAILY HAJA Administration Diltiazem HCl 120 mg 12/07/24 09:00 12/09/24 08:53 Diltiazem Hcl Cd 120 Mg Cap.24hr PO 120 mg QAM HAJA Administration Fluticasone Propionate 1 spray 12/04/24 20:38 Fluticasone Propionate 0.05% Na Spr 16 Gm Btl (*Bkc) NASAL DAILY PRN allergy symptoms Glucagon 1 mg 12/04/24 20:40 Glucagon For Inj 1 Mg Vial IM PRN PRN Hypoglycemia Protocol Glucose 15 gm 12/04/24 20:40 Glucose Oral Gel 15 Gm Of Glucse In 37.5 Gm Tube PO PRN PRN Hypoglycemia Protocol Dextrose 1,000 mls @ 100 mls/hr 12/04/24 20:40 Dextrose 5% 1,000 Ml IVPB PRN PRN Hypoglycemia Protocol Insulin Aspart 3 - 6 units 12/08/24 11:47 12/09/24 11:36 Insulin Aspart (*Bkc) 100 Units/Ml SUB-Q 3 units TIDWM HAJA Administration Protocol Insulin Aspart 3 - 6 units 12/08/24 21:00 12/08/24 20:50 Insulin Aspart (*Bkc) 100 Units/Ml SUB-Q 6 units HS HAJA Administration Protocol Insulin Glargine 20 units 12/05/24 09:00 12/09/24 08:52 Insulin Glargine (*Bkc) 100 Units/Ml SUB-Q 20 units DAILY HAJA Administration Levalbuterol HCl 1.25 mg 12/05/24 14:00 12/09/24 13:34 Levalbuterol Neb 1.25 Mg/3 Ml INHALATION 1.25 mg Q6HRT HAJA Administration Magnesium Hydroxide 30 ml 12/04/24 20:38 Magnesium Hydroxide Susp 30 Ml Udc PO HS PRN constipation Melatonin 5 mg 12/04/24 21:00 12/08/24 20:49 Melatonin 5 Mg Tablet PO 5 mg HS HAJA Administration Methylprednisolone Sodium Succinate 40 mg 12/08/24 22:00 12/09/24 06:11 Methylprednisolone Sod Succ 125 Mg Vial IV PUSH 40 mg Q8HR HAJA Administration Metoprolol Tartrate 12.5 mg 12/05/24 12:00 12/08/24 05:02 Metoprolol Tartrate 12.5 Mg Tablet PO Not Given Q6HR HAJA Pantoprazole Sodium 40 mg 12/05/24 21:10 12/09/24 08:53 Pantoprazole 40 Mg Tablet PO 40 mg Q12HR HAJA Administration Polyethylene Glycol 17 gm 12/04/24 20:38 Polyethylene Glycol 3350 17 Gm Powd.Pack PO BID PRN constipation Tamsulosin HCl 0.4 mg 12/04/24 21:00 12/08/24 20:49 Tamsulosin Hcl 0.4 Mg Capsule PO 0.4 mg HS HAJA Administration Valacyclovir HCl 1,000 mg 12/08/24 21:00 12/09/24 08:53 Valacyclovir Hcl 500 Mg Tablet PO 12/11/24 21:01 1,000 mg Q12HR HAJA Administration Radiology Results: ITS Impressions Chest CT 12/04/24 10:59 IMPRESSION: Severe bilateral interstitial lung disease, as detailed above. Volume loss within the right hemithorax. Mediastinal lymphadenopathy. Findings suggesting prior granulomatous disease. Decreased attenuation within the periphery of the lateral margin of the spleen, possibly related to bolus timing in the absence of a history of trauma for which clinical correlation is needed. Chest X-Ray 12/07/24 06:15 IMPRESSION: Stable radiographic evaluation of the chest demonstrating severe pulmonary fibrosis, as detailed above. Labs Labs: Laboratory Results - last 24 hr 12/08/24 12/08/24 12/08/24 15:31 16:13 19:42 WBC RBC Hgb Hct MCV MCH MCHC RDW Plt Count MPV Sodium Potassium Chloride Carbon Dioxide Anion Gap BUN Creatinine Estim Creat Clear Calc Estimated GFR Glucose POC Capillary Glucose 310 H 362 H Calcium Magnesium Rheumatoid Factor < 12.0 12/09/24 12/09/24 12/09/24 03:52 07:19 11:31 WBC 5.8 RBC 3.15 L Hgb 8.7 L Hct 25.8 L MCV 81.9 MCH 27.6 MCHC 33.7 RDW 14.6 H Plt Count 204 MPV 8.6 Sodium 122 L Potassium 4.5 Chloride 92 L Carbon Dioxide 25 Anion Gap 5 BUN 43 H Creatinine 1.35 H Estim Creat Clear Calc 42 Estimated GFR 51 L Glucose 181 H POC Capillary Glucose 176 H 233 H Calcium 7.4 L Magnesium 2.0 Rheumatoid Factor
[2024-12-09 14:08] LABS: Anti-CCP Ab, IgG/IgA 8 units (0-19)
[2024-12-09] MEDS: SODIUM CHLORIDE 500 MG TABLET PO ×2 (14:17→20:35)
--- NOTE | 2024-12-09 17:59 | PM.PNPUL ---
Progress Note: A&P Assessment and Plan (1) Acute and chronic respiratory failure: Code(s): J96.20 - Acute and chronic respiratory failure, unspecified whether with hypoxia or hypercapnia Status: Acute Assessment and Plan: Patient developed respiratory failure in October, required oxygen at discharge after being in [facility] in [place] for about a week. Returned to [facility], another pulmonary admission, then went to [facility], developed COVID with multifocal pneumonia in November 2024, has been on high flow most of this month. He was transferred to [facility] December 02, had steep increase in O2 requirement in the last 2 days. Family thinks that since he went on a Thursday night, he did not get meds, deteriorated, and came here by ambulance with increased O2 requirement. His admission CXR = severe interstitial fibrosis, possible pulmonary edema. the cardiac silhouette does not appear enlarged. He was on prednisone 20 mg at the time he was transferred to [facility] December 02. Due to his rapid deterioration, I started high dose steroids for an exacerbation of pulmonary fibrosis, 250 mg IV Q 6 hours and Lasix 40 mg IV Q 12 hours. This has been weaned, and today December 08, continued weaning with a lower dose to 40 mg IV Q 8 hours. I stopped his LAsix 40 mg IV Q 12 hours yesterday with rising BUN/creat. Today his O2 need is fluctuating, on high flow at times. When he is on high flow, is saturation is higher than needed at rest, and lower than needed with exertion. He needs to have O2 increased with exertion. 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 He may not have had his medications the day befroe coming in, however that should not have cause such a deterioration. (3) Dyspnea: Code(s): R06.00 - Dyspnea, unspecified Status: Acute Assessment and Plan: Has severe shortness worse with exertion. He developed pulmonary fibrosis with progressive hypoxemia after COVID, has had rehab, records arrived, reviewed. Overall he feels better compared to admission. (4) Diabetes mellitus type II, uncontrolled: Status: Acute Assessment and Plan: Aggravated by steroids. Glucose is better, in the 200s. Defer management to hospitalist. Plan plan: Continue steroids, wean as tolerated. Monitor his renal function, BUN better, 43. Was increased due to diuresis to improve oxygenation. He has diabetes. . I sent labs to evaluate for auto immune disease, hypersensitivity panel, Rheumatoid factor, evaluate for auto immune as he has fibrosis. His COVID probably is the cause. As COVID is new, post COVID fibrosis is still being evaluated as far as options for treatment. He might be a candidate for anti-fibrotic meds, such as pirfenidone an nintedanib. He has been in a hospital or LTAC since October 19. He had post COVID pulmonary fibrosis, was on recent oral prednisone when admitted here December 04, appeared to have rapidly progressive fibrosis but hard to tell as we had no comparison images but he was on 2 L/min to 5 L/min days before arrival here. He required high flow at high amounts, was able to decrease to 6 L nasal cannula, returned ot high flow. He will need higher O2 to perform exercise. He needs exercise to improve his conditioning and get him closer to discharge. Subjective Date/time seen: 12/09/24 17:59 Interval history: 12/05/2024; new consult; Zack Fofana is an 79-year-old man with ILD, no history of tobacco, no history of any lung disease until he developed shortness of breath in October 2024. He was at [facility] in [facility] admitted October 19 through October 27 related to shortness of breath, family thinks he had atrial fibrillation and this was controlled with metoprolol. Went home for a short amount of time, maybe a day, returned to [facility] with hemoptysis, and was diagnosed with multifocal pneumonia secondary to COVID during this admission. He developed atrial fibrillation. He had a transesophageal cardioversion and was back in sinus rhythm. He was on Eliquis 2.5 mg b.i.d.. He was transferred to an LTAC for weaning oxygen, He was diagnosed with pulmonary fibrosis. He was re-admitted about October 28; November 03 he was in a regular room at [facility], then was transferred to November [address] [facility], deteriorated. He was on high-flow but not intubated. During this admission, he was diagnosed with COVID. November 09 he was sent to [facility] in [facility], November 09 until December 02, was stabilized, November 23 he was on 60 liters/minute and 75% FiO2. He was transferred to [facility] care on December 02 for rehab. He was able to have his O2 decreased to 2 L/minute. Thursday am, he woke up, was disoriented, his heart rate was high 120, his O2 sat was low in the low 80s, but his son said that this seemed to be a little worse. He came to [place] [facility] with saturation 80% on 6-8 L. Chart from [facility] shows PMH including BPH, a fib, hyperlipidemia, multifocal pneumonia due to COVID. pulmonary hypertension, chronic respiratory failure, severe protein calorie malnutrition. At [facility], he was on 5 L with sat 96%. During the last week, heart rate was elevated at 120; family was not sure why. I did not see tachycardia documented in the notes from [facility]. His transfer medication list from [facility] showed that he was on prednisone 20 mg po daily, propafenone 225 mg q.8 hours for atrial fib., PMH : DM 8 years ago. No chronic medical problems otherwise per family. No surgeries. : 2 years in [place]. 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 He was never evaluated for asbestosis. He had no history of lung disease when he was working. He retired around age 63. He worked in [employer] for 2 or 3 years and this was 30 or 40 years ago. He had no lung issues until around [address] Elio Porter in [place]; had fluid on his lung in the nodule, the fluid resolved on its own so he did not need a thoracentesis, he went home, did not need pulmonary follow up. Tobacco: never smoker. Soc: He is to Padmini, they raised 4 children. He has not been at home over a few days since October due to his respiratory problems, and being in a hospital or LTAC/Rehab. Family hx: father at age 82, was a coal or ore controller. 12/06/2024; hospital follow up; He had PAF today, control and recovery special tactics saw him and started meds to control his rate, now on diltiazem drip 5 mg an hour in addition to metoprolol 12.5 mg Q 6 hours. He had wound care today for his bottom, is feeling a little better. His son Ethan is at the bedside, and Ethan's friend is visiting. The patient feels fine when he is sitting still, not exerting himself. He started high dose steroids last night Solu-medrol 250 mg IV Q 6 hours. He is on Lasix 40 mg IV Q 12 hours. Blood glucose is high, 253 to 412. Na+ is lower 122, serum CO2 is 21, lower, was 24 yesterday. He is not coughing. He has no joint pain. Appetite is increased with steroids. 12/08/24; hospital follow up; He is now on 6 L/min, and granddaughter at bedside. O2 need is lower, and he has had Lasix stopped, steroids decreased. I did not receive notes from [facility]. I spoke with them about causes for pulmonary fibrosis. He does not have a history of this before October 2024. He had COVID in November, and had worsening fibrosis afterwards. BUN 51, creat 1.75, glucose remains elevated 256 to 351. I plan to order work up for pulmonary fibrosis, TATIANA, hypersensitivity profile, anti CCP antibodies, rheumatoid factor. Was expecting to see all these results from prior admissions at [facility] and [facility] in [place]. He is now on solumedrol 60 mg IV Q 8 hours. With rising BUN and creat, I will decrease again, 40 mg IV Q 8 hours. He continues to have physical therapy. CXR 12/07 was exactly the same as admission, IMPRESSION: Stable radiographic evaluation of the chest demonstrating severe pulmonary fibrosis, as detailed above. Dec 09; He is saturating 97% on High flow, sat is higher than needed, so this can be weaned at rest. He drops saturation with exertion. He says that when his saturation drops, his therapist tells him to sit down, not exert himself. He needs to have O2 increased as highas needed to allow him to exercise. He is going to become more deconditioned by sitting in bed. DATA on 12/05/24; Ethan shared images of his father's CXRs with the dates on his cell phone. I reviewed CXR 11/21/24 [facility], not as severe as this CXR today. November 09, 2024 [facility]; not as abnormal as today, fibrosis visible, more aerated lungs in apices. * 12/05/2024 CXR : Cardiomediastinal silhouette is partially obscured. Diffuse interstitial thickening with a bilateral lower lobe, likely chronic. Small bilateral pleural effusions are also noted. Peripheral and bibasilar honeycombing is present. IMPRESSION: Re-demonstration of severe interstitial lung disease, as detailed above. document embedded image * 12/04/2024; chest CT: IMPRESSION: Severe bilateral interstitial lung disease, as detailed above. Volume loss within the right hemithorax. Mediastinal lymphadenopathy. Findings suggesting prior granulomatous disease. Decreased attenuation within the periphery of the lateral margin of the spleen, possibly related to bolus timing in the absence of a history of trauma for which clinical correlation is needed. * 12/04/2024 EKG; Sinus rhythm with incomplete right bundle-branch block, minimal ST depression. *12/05/2024, white blood cell count 5.2, hemoglobin 10.6, hematocrit 32%, platelets 150 k. Review of Systems Review of Systems: All systems reviewed & are unremarkable except as noted in HPI and below Exam Narrative: GEN: Alert, oriented, can nod to questions. He is on regular nasal cannula 6 L/min, Saturation is 92-95%. NECK: Trachea is midline CHEST: Equal air entry, symmetric excursion, decreased breath sounds posteriorly, not taking deep breaths, few crackles CV: Distant S1S2, no m/g/r ABD : (+) bowel sounds Extremities : no clubbing, cyanosis, or edema PSYCH: normal thought and speech. Objective Data Vital Signs Vital Signs: Vital Signs - 24 hr 12/08/24 18:00 12/08/24 20:00 12/08/24 20:00 Temperature 36.6 C Pulse Rate 81 77 Respiratory Rate 18 Blood Pressure 107/48 L Pulse Oximetry 91 90 Oxygen Delivery High Flow Therapy with Na Oxygen Flow Rate 30 Fraction of Inspired Oxygen 68 12/08/24 20:00 12/08/24 20:28 12/08/24 20:28 Temperature Pulse Rate 73 77 Respiratory Rate 24 H Blood Pressure Pulse Oximetry 90 Oxygen Delivery High Flow Therapy with Na Oxygen Flow Rate 30 Fraction of Inspired Oxygen 68 12/08/24 20:39 12/08/24 22:00 12/09/24 00:00 Temperature 36.6 C Pulse Rate 82 77 78 Respiratory Rate 24 H 18 Blood Pressure 105/61 Pulse Oximetry 95 Oxygen Delivery Oxygen Flow Rate Fraction of Inspired Oxygen 12/09/24 00:00 12/09/24 00:00 12/09/24 01:40 Temperature Pulse Rate 73 90 Respiratory Rate 20 Blood Pressure Pulse Oximetry 95 Oxygen Delivery High Flow Therapy with Na Oxygen Flow Rate 30 Fraction of Inspired Oxygen 60 12/09/24 01:44 12/09/24 02:00 12/09/24 04:00 Temperature 36.7 C Pulse Rate 91 79 86 Respiratory Rate 20 18 Blood Pressure 111/50 L Pulse Oximetry 92 Oxygen Delivery Oxygen Flow Rate Fraction of Inspired Oxygen 12/09/24 04:00 12/09/24 04:00 12/09/24 06:00 Temperature Pulse Rate 77 87 Respiratory Rate Blood Pressure Pulse Oximetry 92 Oxygen Delivery High Flow Therapy with Na Oxygen Flow Rate 30 Fraction of Inspired Oxygen 60 12/09/24 07:50 12/09/24 08:00 12/09/24 08:00 Temperature 36.4 C L Pulse Rate 82 80 Respiratory Rate 24 H Blood Pressure 102/46 L Pulse Oximetry 98 95 Oxygen Delivery High Flow Nasal Cannula Oxygen Flow Rate 30 Fraction of Inspired Oxygen 60 12/09/24 08:20 12/09/24 08:23 12/09/24 08:24 Temperature Pulse Rate 89 89 81 Respiratory Rate 20 20 Blood Pressure Pulse Oximetry 95 Oxygen Delivery High Flow Therapy with Na Oxygen Flow Rate 30 Fraction of Inspired Oxygen 64 12/09/24 08:53 12/09/24 10:00 12/09/24 10:05 Temperature Pulse Rate 81 85 Respiratory Rate Blood Pressure Pulse Oximetry Oxygen Delivery High Flow Therapy with Na Oxygen Flow Rate 30 Fraction of Inspired Oxygen 12/09/24 11:59 12/09/24 12:00 12/09/24 12:00 Temperature 36.6 C Pulse Rate 76 84 Respiratory Rate 25 H Blood Pressure 117/47 L Pulse Oximetry 97 97 Oxygen Delivery High Flow Therapy with Na Oxygen Flow Rate 30 Fraction of Inspired Oxygen 64 12/09/24 13:36 12/09/24 13:37 12/09/24 13:38 Temperature Pulse Rate 81 81 Respiratory Rate 19 20 Blood Pressure Pulse Oximetry 93 Oxygen Delivery High Flow Therapy with Na Oxygen Flow Rate 30 Fraction of Inspired Oxygen 62 12/09/24 14:00 12/09/24 14:42 12/09/24 15:34 Temperature Pulse Rate 70 Respiratory Rate Blood Pressure Pulse Oximetry 96 97 Oxygen Delivery High Flow Therapy with Na High Flow Therapy with Na Oxygen Flow Rate 40 45 Fraction of Inspired Oxygen 85 88 12/09/24 16:00 12/09/24 16:00 12/09/24 16:00 Temperature 36.6 C Pulse Rate 72 66 Respiratory Rate 24 H Blood Pressure 111/61 Pulse Oximetry 95 95 Oxygen Delivery High Flow Therapy with Na Oxygen Flow Rate 45 Fraction of Inspired Oxygen 85 Intake/Output Intake/Output: Intake & Output 12/06/24 12/07/24 12/08/24 12/09/24 23:59 23:59 23:59 23:59 Intake Total 1507.9 1480 250 840 Output Total 3025 1900 2700 1300 [facility] -1517.1 -420 -2921 -410 Meds/Results Medications: Active Medications Generic Name Dose Route Start Last Admin Trade Name Freq PRN Reason Stop Dose Admin Acetaminophen 650 mg 12/04/24 20:38 12/09/24 04:32 Acetaminophen 325 Mg Tablet PO 650 mg Q6H PRN Administration fever or pain 1-3 Atorvastatin Calcium 10 mg 12/04/24 21:00 12/08/24 20:49 Atorvastatin 10 Mg Tablet PO 10 mg HS HAJA Administration Benzonatate 100 mg 12/04/24 20:38 Benzonatate 100 Mg Capsule PO Q6H PRN cough Bisacodyl 10 mg 12/04/24 20:38 Bisacodyl 10 Mg Suppository RECTAL DAILY PRN constipation Dextrose 12.5 gm 12/04/24 20:40 Dextrose 50% 25 Gm/50 Ml Syringe IV PUSH PRN PRN Hypoglycemia Protocol Digoxin 500 mcg 12/05/24 09:00 12/09/24 08:53 Digoxin 250 Mcg Tablet PO 500 mcg DAILY HAJA Administration Diltiazem HCl 120 mg 12/07/24 09:00 12/09/24 08:53 Diltiazem Hcl Cd 120 Mg Cap.24hr PO 120 mg QAM HAJA Administration Fluticasone Propionate 1 spray 12/04/24 20:38 Fluticasone Propionate 0.05% Na Spr 16 Gm Btl (*Bkc) NASAL DAILY PRN allergy symptoms Glucagon 1 mg 12/04/24 20:40 Glucagon For Inj 1 Mg Vial IM PRN PRN Hypoglycemia Protocol Glucose 15 gm 12/04/24 20:40 Glucose Oral Gel 15 Gm Of Glucse In 37.5 Gm Tube PO PRN PRN Hypoglycemia Protocol Dextrose 1,000 mls @ 100 mls/hr 12/04/24 20:40 Dextrose 5% 1,000 Ml IVPB PRN PRN Hypoglycemia Protocol Insulin Aspart 3 - 6 units 12/08/24 11:47 12/09/24 16:59 Insulin Aspart (*Bkc) 100 Units/Ml SUB-Q 3 units TIDWM HAJA Administration Protocol Insulin Aspart 3 - 6 units 12/08/24 21:00 12/08/24 20:50 Insulin Aspart (*Bkc) 100 Units/Ml SUB-Q 6 units HS HAJA Administration Protocol Insulin Glargine 20 units 12/05/24 09:00 12/09/24 08:52 Insulin Glargine (*Bkc) 100 Units/Ml SUB-Q 20 units DAILY HAJA Administration Levalbuterol HCl 1.25 mg 12/05/24 14:00 12/09/24 13:34 Levalbuterol Neb 1.25 Mg/3 Ml INHALATION 1.25 mg Q6HRT HAJA Administration Magnesium Hydroxide 30 ml 12/04/24 20:38 Magnesium Hydroxide Susp 30 Ml Udc PO HS PRN constipation Melatonin 5 mg 12/04/24 21:00 12/08/24 20:49 Melatonin 5 Mg Tablet PO 5 mg HS HAJA Administration Methylprednisolone Sodium Succinate 40 mg 12/08/24 22:00 12/09/24 14:17 Methylprednisolone Sod Succ 125 Mg Vial IV PUSH 40 mg Q8HR HAJA Administration Metoprolol Tartrate 12.5 mg 12/05/24 12:00 12/08/24 05:02 Metoprolol Tartrate 12.5 Mg Tablet PO Not Given Q6HR HAJA Pantoprazole Sodium 40 mg 12/05/24 21:10 12/09/24 08:53 Pantoprazole 40 Mg Tablet PO 40 mg Q12HR HAJA Administration Polyethylene Glycol 17 gm 12/04/24 20:38 Polyethylene Glycol 3350 17 Gm Powd.Pack PO BID PRN constipation Sodium Chloride 500 mg 12/09/24 13:40 12/09/24 14:17 Sodium Chloride 500 Mg Tablet PO 500 mg BID HAJA Administration Tamsulosin HCl 0.4 mg 12/04/24 21:00 12/08/24 20:49 Tamsulosin Hcl 0.4 Mg Capsule PO 0.4 mg HS HAJA Administration Valacyclovir HCl 1,000 mg 12/08/24 21:00 12/09/24 08:53 Valacyclovir Hcl 500 Mg Tablet PO 12/11/24 21:01 1,000 mg Q12HR HAJA Administration Radiology Results: ITS Impressions Chest CT 12/04/24 10:59 IMPRESSION: Severe bilateral interstitial lung disease, as detailed above. Volume loss within the right hemithorax. Mediastinal lymphadenopathy. Findings suggesting prior granulomatous disease. Decreased attenuation within the periphery of the lateral margin of the spleen, possibly related to bolus timing in the absence of a history of trauma for which clinical correlation is needed. Chest X-Ray 12/07/24 06:15 IMPRESSION: Stable radiographic evaluation of the chest demonstrating severe pulmonary fibrosis, as detailed above. Labs Labs: Laboratory Results - last 24 hr 0712/08/24 12/09/24 16:13 19:42 03:52 WBC 5.8 RBC 3.15 L Hgb 8.7 L Hct 25.8 L MCV 81.9 MCH 27.6 MCHC 33.7 RDW 14.6 H Plt Count 204 MPV 8.6 Sodium 122 L Potassium 4.5 Chloride 92 L Carbon Dioxide 25 Anion Gap 5 BUN 43 H Creatinine 1.35 H Estim Creat Clear Calc 42 Estimated GFR 51 L Glucose 181 H POC Capillary Glucose 362 H Calcium 7.4 L Magnesium 2.0 CCP IgG/IgA Ab 8 12/09/24 12/09/24 12/09/24 07:19 11:31 16:16 WBC RBC Hgb Hct MCV MCH MCHC RDW Plt Count MPV Sodium Potassium Chloride Carbon Dioxide Anion Gap BUN Creatinine Estim Creat Clear Calc Estimated GFR Glucose POC Capillary Glucose 176 H 233 H 225 H Calcium Magnesium CCP IgG/IgA Ab
[2024-12-09] MEDS: ATORVASTATIN 10 MG TABLET PO (20:35)
[2024-12-09] MEDS: MELATONIN 5 MG TABLET PO (20:35)
[2024-12-09] MEDS: TAMSULOSIN HCL 0.4 MG CAPSULE PO (20:36)
[2024-12-10] VITALS (28 sets, daily range): BP systolic 110–132; BP diastolic 47–67; PULSE 71–95; RESP 16–28; TEMP 36.4–36.7; O2SAT 91–99
[2024-12-10 04:51] LABS: Hematocrit 26.6 % (42.0-52.0); Hemoglobin 9.1 g/dL (14.0-18.0); Mean Corpuscular HGB Conc 34.2 g/dl (32-36); Mean Corpuscular Hemoglobin 28.2 pg (26-34); Mean Corpuscular Volume 82.4 fl (80-100); Platelet Count Result 233 k/mm3 (150-375); Red Blood Count 3.23 M/mm3 (4.6-6.20); White Blood Count 5.9 K/mm3 (4.5-10.0)
[2024-12-10 05:17] LABS: Anion Gap 4 mmol/L (4-12); Blood Urea Nitrogen 32 mg/dL (9-20); Calcium 7.7 mg/dL (8.4-10.2); Carbon Dioxide 27 mmol/L (22-30); Chloride 96 mmol/L (98-107); Estimated CRCL calculation 50 ml/min; Estimated Glomerular Filt Rate > 60; Glucose 182 mg/dL (65-110); Magnesium 2.1 mg/dL (1.6-2.3); Potassium 4.3 mmol/L (3.4-5.0); Sodium 127 mmol/L (137-145)
--- NOTE | 2024-12-10 08:29 | PM.IMPN ---
Progress Note: A&P Assessment and Plan (1) Hypotension: Code(s): I95.9 - Hypotension, unspecified Status: Acute (2) Dyspnea: Code(s): R06.00 - Dyspnea, unspecified Status: Acute (3) Hyponatremia: Code(s): E87.1 - Hypo-osmolality and hyponatremia Status: Acute (4) Impaired skin integrity: Code(s): R23.9 - Unspecified skin changes Status: Acute (5) Interstitial lung disease: Code(s): J84.9 - Interstitial pulmonary disease, unspecified Status: Chronic (6) Atrial fibrillation: Code(s): I48.91 - Unspecified atrial fibrillation Status: Chronic Plan This is an 79 year male patient with past medical history significant pulmonary fibrosis status post COVID diagnosis on 6 L oxygen, atrial fibrillation on and control metoprolol who currently resides at [facility] Where he is currently at for rehabilitation. Prior to going to [facility], he was in the hospital at [facility] and transferred to [facility] and ultimately transferred to [facility]. Pt alert, oriented x4 and without any acute complaint. He was sent to the ER with complaints of hypoxia and dyspnea after nursing service found him with low oxygen sats in his room, noted to be on 2L. He was sent to the ER where he required a few moments of BiPap and has ultimately recovered to his baseline on 5L Supplemental oxygen. His EKG upon arrival to the ER showed a variable rate/rhythm that was either ST or A-flutter/tach with rates from low 100s-120s. Although he has Metoprolol ordered for rate control as he does have a hx of A-fib, it was not given as pt's BP has been on the lower side. Pt has no respiratory complaints and no concerns of CP. His only complaint is pain in his coccyx region from breakdown. In the emergency room fall was performed EKG showing either sinus tachycardia versus a flutter with RVR, however unable to be controlled with beta blockade as patient's blood pressure has been low. CT of the chest showing severe bilateral interstitial lung disease with mediastinal lymphadenopathy present. CBC unremarkable with WBC is 5.3 and intact H&H. Metabolic panel showing hyponatremia at 1:23 a.m.. Renal function impaired with creatinine and BUN of 1.4/27, however we do not know patient's baseline as there is none historical in our system. Glucose noted to be 72. Urinalysis was unremarkable and coags are normal. ER physician was concerned for potential dehydration component contributing to patient's tachycardia. He was given a Liter of LR and albuterol nebulizer. patient with history of ILD most likely 2/2 COVID infection he had recently and possible environmental chemical exposure, patient is seen by his fighter pilot patient is treated with high dose steroids and loading dose of methylprednisone 250mg IV q6 for 1 day and taper it down to 125mg q8, the fighter pilot is doing investigation for the cause of pulmonary fibrosis, and also taper down the steroids to 40mg IV q8, patient oxygen demand in improving still on Airvo. Taper/wean as tolerated Redemonstration of diffuse interstitial thickening with a bilateral lower lobe distribution, likely chronic. Peripheral and bibasilar honeycombing. Bibasilar pleural thickening, right greater than left. Pulmonary following AFib paroxysmal on propafenone digoxin and metoprolol anticoagulated with apixaban.. Propafenone held by cover operator. Currently rate controlled on metoprolol and diltiazem. Echo with EF 70% aortic valve not well visualized but does not appear to have any hemodynamically significant aortic stenosis no significant other valvular abnormalities. significant pauses overngiht. currenlty digoxin, metoprolol and diltiazem on hold. reconsult cardiology. Hyponatremia 122 add salt tablet looks euvolemic. TSH normal DVT prohylaxis on Eliquis Code status full code discussed with the patient again. Subjective Date/time seen: 12/10/24 08:29 Interval history: overnight he had long pauses, he needed to sternal rubbed to wake up. he remains on airvo 50-60% FIo2. Not much cough. No leg swelling. Review of Systems Review of Systems: All systems reviewed & are unremarkable except as noted in HPI and below Exam Narrative: Patient is comfortable, NAD HEENT: eyes are clear and none icteric LUNGS: Bilateral fair air entry with harsh breath sounds HEART: RR S1S2 ABD: BS+, Soft and nontender Lower extremities: no edema SKIN: nonjaundiced Neuro: grossly intact. Objective Data Vital Signs Vital Signs: Vital Signs - 24 hr 12/09/24 08:53 12/09/24 10:00 12/09/24 10:05 Temperature Pulse Rate 81 85 Respiratory Rate Blood Pressure Pulse Oximetry Oxygen Delivery High Flow Therapy with Na Oxygen Flow Rate 30 Fraction of Inspired Oxygen 12/09/24 11:59 12/09/24 12:00 12/09/24 12:00 Temperature 97.9 F Pulse Rate 76 84 Respiratory Rate 25 H Blood Pressure 117/47 L Pulse Oximetry 97 97 Oxygen Delivery High Flow Therapy with Na Oxygen Flow Rate 30 Fraction of Inspired Oxygen 64 12/09/24 13:36 12/09/24 13:37 12/09/24 13:38 Temperature Pulse Rate 81 81 Respiratory Rate 19 20 Blood Pressure Pulse Oximetry 93 Oxygen Delivery High Flow Therapy with Na Oxygen Flow Rate 30 Fraction of Inspired Oxygen 62 12/09/24 14:00 12/09/24 14:42 12/09/24 15:34 Temperature Pulse Rate 70 Respiratory Rate Blood Pressure Pulse Oximetry 96 97 Oxygen Delivery High Flow Therapy with Na High Flow Therapy with Na Oxygen Flow Rate 40 45 Fraction of Inspired Oxygen 85 88 12/09/24 16:00 12/09/24 16:00 12/09/24 16:00 Temperature 97.8 F Pulse Rate 72 66 Respiratory Rate 24 H Blood Pressure 111/61 Pulse Oximetry 95 95 Oxygen Delivery High Flow Therapy with Na Oxygen Flow Rate 45 Fraction of Inspired Oxygen 85 12/09/24 18:00 12/09/24 20:00 12/09/24 20:00 Temperature 98.0 F Pulse Rate 84 70 Respiratory Rate 22 H Blood Pressure 121/63 Pulse Oximetry 98 98 Oxygen Delivery High Flow Therapy with Na Oxygen Flow Rate 45 Fraction of Inspired Oxygen 85 12/09/24 20:00 12/09/24 20:04 12/09/24 20:06 Temperature Pulse Rate 76 80 Respiratory Rate 18 Blood Pressure Pulse Oximetry 98 Oxygen Delivery High Flow Therapy with Na Oxygen Flow Rate 45 Fraction of Inspired Oxygen 88 12/09/24 20:14 12/09/24 20:20 12/09/24 21:20 Temperature Pulse Rate 79 Respiratory Rate 18 Blood Pressure Pulse Oximetry 98 97 Oxygen Delivery High Flow Therapy with Na High Flow Therapy with Na Oxygen Flow Rate 40 40 Fraction of Inspired Oxygen 75 65 12/09/24 21:25 12/09/24 22:00 12/09/24 23:44 Temperature 98.2 F Pulse Rate 76 81 Respiratory Rate 20 Blood Pressure 122/43 L Pulse Oximetry 97 99 Oxygen Delivery Oxygen Flow Rate 40 Fraction of Inspired Oxygen 75 12/10/24 00:00 12/10/24 00:00 12/10/24 02:00 Temperature Pulse Rate 71 77 Respiratory Rate Blood Pressure Pulse Oximetry 98 Oxygen Delivery High Flow Therapy with Na Oxygen Flow Rate 40 Fraction of Inspired Oxygen 65 12/10/24 02:22 12/10/24 02:23 12/10/24 02:31 Temperature Pulse Rate 79 76 Respiratory Rate 20 20 Blood Pressure Pulse Oximetry 96 Oxygen Delivery Oxygen Flow Rate 40 Fraction of Inspired Oxygen 70 12/10/24 04:00 12/10/24 04:00 12/10/24 04:00 Temperature 98.0 F Pulse Rate 91 74 Respiratory Rate 16 Blood Pressure 110/47 L Pulse Oximetry 98 96 Oxygen Delivery High Flow Therapy with Na Oxygen Flow Rate 40 Fraction of Inspired Oxygen 60 12/10/24 06:00 12/10/24 07:15 12/10/24 07:15 Temperature Pulse Rate 82 77 Respiratory Rate 20 Blood Pressure Pulse Oximetry 99 Oxygen Delivery High Flow Therapy with Na Oxygen Flow Rate 40 Fraction of Inspired Oxygen 60 12/10/24 07:22 12/10/24 07:47 12/10/24 07:57 Temperature 97.7 F Pulse Rate 81 78 Respiratory Rate 20 28 H Blood Pressure 122/64 Pulse Oximetry 93 91 Oxygen Delivery High Flow Therapy with Na Oxygen Flow Rate 30 Fraction of Inspired Oxygen 50 Intake/Output Intake/Output: Intake & Output 12/07/24 12/08/24 12/09/24 12/10/24 23:59 23:59 23:59 23:59 Intake Total 6776 793 6991 100 Output Total 1900 [address] [facility] -420 -2450 -510 -150 Meds/Results Medications: Active Medications Generic Name Dose Route Start Last Admin Trade Name Freq PRN Reason Stop Dose Admin Acetaminophen 650 mg 12/04/24 20:38 12/09/24 04:32 Acetaminophen 325 Mg Tablet PO 650 mg Q6H PRN Administration fever or pain 1-3 Atorvastatin Calcium 10 mg 12/04/24 21:00 12/09/24 20:35 Atorvastatin 10 Mg Tablet PO 10 mg HS HAJA Administration Benzonatate 100 mg 12/04/24 20:38 Benzonatate 100 Mg Capsule PO Q6H PRN cough Bisacodyl 10 mg 12/04/24 20:38 Bisacodyl 10 Mg Suppository RECTAL DAILY PRN constipation Dextrose 12.5 gm 12/04/24 20:40 Dextrose 50% 25 Gm/50 Ml Syringe IV PUSH PRN PRN Hypoglycemia Protocol Digoxin 500 mcg 12/05/24 09:00 12/09/24 08:53 Digoxin 250 Mcg Tablet PO 500 mcg DAILY HAJA Administration Diltiazem HCl 120 mg 12/07/24 09:00 12/09/24 08:53 Diltiazem Hcl Cd 120 Mg Cap.24hr PO 120 mg QAM HAJA Administration Fluticasone Propionate 1 spray 12/04/24 20:38 Fluticasone Propionate 0.05% Na Spr 16 Gm Btl (*Bkc) NASAL DAILY PRN allergy symptoms Glucagon 1 mg 12/04/24 20:40 Glucagon For Inj 1 Mg Vial IM PRN PRN Hypoglycemia Protocol Glucose 15 gm 12/04/24 20:40 Glucose Oral Gel 15 Gm Of Glucse In 37.5 Gm Tube PO PRN PRN Hypoglycemia Protocol Dextrose 1,000 mls @ 100 mls/hr 12/04/24 20:40 Dextrose 5% 1,000 Ml IVPB PRN PRN Hypoglycemia Protocol Insulin Aspart 3 - 6 units 12/08/24 11:47 12/09/24 16:59 Insulin Aspart (*Bkc) 100 Units/Ml SUB-Q 3 units TIDWM HAJA Administration Protocol Insulin Aspart 3 - 6 units 12/08/24 21:00 12/09/24 20:36 Insulin Aspart (*Bkc) 100 Units/Ml SUB-Q 4 units HS HAJA Administration Protocol Insulin Glargine 20 units 12/05/24 09:00 12/09/24 08:52 Insulin Glargine (*Bkc) 100 Units/Ml SUB-Q 20 units DAILY HAJA Administration Levalbuterol HCl 1.25 mg 12/05/24 14:00 12/10/24 07:15 Levalbuterol Neb 1.25 Mg/3 Ml INHALATION 1.25 mg Q6HRT HAJA Administration Magnesium Hydroxide 30 ml 12/04/24 20:38 Magnesium Hydroxide Susp 30 Ml Udc PO HS PRN constipation Melatonin 5 mg 12/04/24 21:00 12/09/24 20:35 Melatonin 5 Mg Tablet PO 5 mg HS HAJA Administration Methylprednisolone Sodium Succinate 40 mg 12/08/24 22:00 12/10/24 06:32 Methylprednisolone Sod Succ 125 Mg Vial IV PUSH 40 mg Q8HR HAJA Administration Metoprolol Tartrate 12.5 mg 12/05/24 12:00 12/08/24 05:02 Metoprolol Tartrate 12.5 Mg Tablet PO Not Given Q6HR HAJA Pantoprazole Sodium 40 mg 12/05/24 21:10 12/09/24 20:35 Pantoprazole 40 Mg Tablet PO 40 mg Q12HR HAJA Administration Polyethylene Glycol 17 gm 12/04/24 20:38 Polyethylene Glycol 3350 17 Gm Powd.Pack PO BID PRN constipation Sodium Chloride 500 mg 12/09/24 13:40 12/09/24 20:35 Sodium Chloride 500 Mg Tablet PO 500 mg BID HAJA Administration Tamsulosin HCl 0.4 mg 12/04/24 21:00 12/09/24 20:36 Tamsulosin Hcl 0.4 Mg Capsule PO 0.4 mg HS HAJA Administration Valacyclovir HCl 1,000 mg 12/08/24 21:00 12/09/24 20:36 Valacyclovir Hcl 500 Mg Tablet PO 12/11/24 21:01 1,000 mg Q12HR HAJA Administration Radiology Results: ITS Impressions Chest CT 12/04/24 10:59 IMPRESSION: Severe bilateral interstitial lung disease, as detailed above. Volume loss within the right hemithorax. Mediastinal lymphadenopathy. Findings suggesting prior granulomatous disease. Decreased attenuation within the periphery of the lateral margin of the spleen, possibly related to bolus timing in the absence of a history of trauma for which clinical correlation is needed. Chest X-Ray 12/10/24 07:14 IMPRESSION: 1. Persistent lower lung predominant diffuse interstitial and airspace opacities. Disc related to chronic interstitial lung disease with and peripheral honeycombing on prior CT favoring usual interstitial pneumonia (UIP) pattern a more acute pneumonia, moderate pulmonary edema or some combination thereof. 2. Cardiomegaly. 2. Small right pleural effusion.. Labs Labs: Laboratory Results - last 24 hr 12/08/24 12/09/24 12/09/24 16:13 11:31 16:16 WBC RBC Hgb Hct MCV MCH MCHC RDW Plt Count MPV Sodium Potassium Chloride Carbon Dioxide Anion Gap BUN Creatinine Estim Creat Clear Calc Estimated GFR Glucose POC Capillary Glucose 233 H 225 H Calcium Magnesium CCP IgG/IgA Ab 8 12/09/24 12/10/24 12/10/24 19:32 04:25 07:21 WBC 5.9 RBC 3.23 L Hgb 9.1 L Hct 26.6 L MCV 82.4 MCH 28.2 MCHC 34.2 RDW 14.5 Plt Count 233 MPV 8.8 Sodium 127 L Potassium 4.3 Chloride 96 L Carbon Dioxide 27 Anion Gap 4 BUN 32 H D Creatinine 1.12 Estim Creat Clear Calc 50 Estimated GFR > 60 Glucose 182 H POC Capillary Glucose 293 H 187 H Calcium 7.7 L Magnesium 2.1 CCP IgG/IgA Ab
[2024-12-10] MEDS: SODIUM CHLORIDE 500 MG TABLET PO ×2 (09:29→16:38)
[2024-12-10] MEDS: PANTOPRAZOLE 40 MG TABLET PO ×2 (09:29→20:48)
[2024-12-10] MEDS: INSULIN GLARGINE (*BKC) 100 UNITS/ML 20 UNITS SUB-Q (09:29)
[2024-12-10] MEDS: INSULIN ASPART (*BKC) 100 UNITS/ML SUB-Q ×3 (12:05→20:49)
--- NOTE | 2024-12-10 13:01 | P.PNCA_ITS ---
Progress Note: A&P Assessment and Plan (1) Atrial fibrillation: Code(s): I48.91 - Unspecified atrial fibrillation Status: Chronic Plan Persistent atrial fibrillation Pauses in the EKG likely iatrogenic secondary to digoxin metoprolol and diltiazem Chronic respiratory failure secondary to interstitial lung disease Plan Continue apixaban DC propafenone, DC digoxin Hold metoprolol and diltiazem Restart diltiazem tomorrow and add metoprolol later if the heart rate above 100 Subjective Date/time seen: 12/10/24 13:01 Interval history: no acute events Tele: AF rate 80 and pauses upto 11 sec last night while sleeping Review of Systems Review of Systems: All systems reviewed & are unremarkable except as noted in HPI and below Exam Const: General: comfortable, no acute distress, alert and awake Orientation/consciousness: patient oriented x3 HENMT: Head: normal to inspection Eyes: General: appearance normal, both eyes and all related structures Pupils: Equal, round and reactive pupils present Neck: Neck: normal visual inspection, supple and no JVD Carotids: normal carotid upstroke Resp: Auscultation: crackles and diminished lung sounds Cardio: Rate: regular rate Rhythm: abnormal rhythm irregularly irregular Heart sounds: S1 normal heart sound present, S2 normal heart sound present and no murmurs GI: Auscultation: normal bowel sounds Skin: General skin exam: normal color Neuro: General: patient oriented x3 Cranial nerves: Yes Equal, round and reactive pupils present Extrem: General: normal to inspection Psych: Appearance: grossly normal Mental Status: mental status grossly nor mal Objective Data Vital Signs Vital Signs: Vital Signs - 24 hr 12/09/24 13:36 12/09/24 13:37 12/09/24 13:38 Temperature Pulse Rate 81 81 Respiratory Rate 19 20 Blood Pressure Pulse Oximetry 93 Oxygen Delivery High Flow Therapy with Na Oxygen Flow Rate 30 Fraction of Inspired Oxygen 62 12/09/24 14:00 12/09/24 14:42 12/09/24 15:34 Temperature Pulse Rate 70 Respiratory Rate Blood Pressure Pulse Oximetry 96 97 Oxygen Delivery High Flow Therapy with Na High Flow Therapy with Na Oxygen Flow Rate 40 45 Fraction of Inspired Oxygen 85 88 12/09/24 16:00 12/09/24 16:00 12/09/24 16:00 Temperature 36.6 C Pulse Rate 72 66 Respiratory Rate 24 H Blood Pressure 111/61 Pulse Oximetry 95 95 Oxygen Delivery High Flow Therapy with Na Oxygen Flow Rate 45 Fraction of Inspired Oxygen 85 12/09/24 18:00 12/09/24 20:00 12/09/24 20:00 Temperature 36.7 C Pulse Rate 84 70 Respiratory Rate 22 H Blood Pressure 121/63 Pulse Oximetry 98 98 Oxygen Delivery High Flow Therapy with Na Oxygen Flow Rate 45 Fraction of Inspired Oxygen 85 12/09/24 20:00 12/09/24 20:04 12/09/24 20:06 Temperature Pulse Rate 76 80 Respiratory Rate 18 Blood Pressure Pulse Oximetry 98 Oxygen Delivery High Flow Therapy with Na Oxygen Flow Rate 45 Fraction of Inspired Oxygen 88 12/09/24 20:14 12/09/24 20:20 12/09/24 21:20 Temperature Pulse Rate 79 Respiratory Rate 18 Blood Pressure Pulse Oximetry 98 97 Oxygen Delivery High Flow Therapy with Na High Flow Therapy with Na Oxygen Flow Rate 40 40 Fraction of Inspired Oxygen 75 65 12/09/24 21:25 12/09/24 22:00 12/09/24 23:44 Temperature 36.8 C Pulse Rate 76 81 Respiratory Rate 20 Blood Pressure 122/43 L Pulse Oximetry 97 99 Oxygen Delivery Oxygen Flow Rate 40 Fraction of Inspired Oxygen 75 12/10/24 00:00 12/10/24 00:00 12/10/24 02:00 Temperature Pulse Rate 71 77 Respiratory Rate Blood Pressure Pulse Oximetry 98 Oxygen Delivery High Flow Therapy with Na Oxygen Flow Rate 40 Fraction of Inspired Oxygen 65 12/10/24 02:22 12/10/24 02:23 12/10/24 02:31 Temperature Pulse Rate 79 76 Respiratory Rate 20 20 Blood Pressure Pulse Oximetry 96 Oxygen Delivery Oxygen Flow Rate 40 Fraction of Inspired Oxygen 70 12/10/24 04:00 12/10/24 04:00 12/10/24 04:00 Temperature 36.7 C Pulse Rate 91 74 Respiratory Rate 16 Blood Pressure 110/47 L Pulse Oximetry 98 96 Oxygen Delivery High Flow Therapy with Na Oxygen Flow Rate 40 Fraction of Inspired Oxygen 60 12/10/24 06:00 12/10/24 07:15 12/10/24 07:15 Temperature Pulse Rate 82 77 Respiratory Rate 20 Blood Pressure Pulse Oximetry 99 Oxygen Delivery High Flow Therapy with Na Oxygen Flow Rate 40 Fraction of Inspired Oxygen 60 12/10/24 07:22 12/10/24 07:47 12/10/24 07:57 Temperature 36.5 C Pulse Rate 81 78 Respiratory Rate 20 28 H Blood Pressure 122/64 Pulse Oximetry 93 91 Oxygen Delivery High Flow Therapy with Na Oxygen Flow Rate 30 Fraction of Inspired Oxygen 50 12/10/24 08:00 12/10/24 08:00 12/10/24 10:00 Temperature Pulse Rate 86 86 Respiratory Rate Blood Pressure Pulse Oximetry 91 Oxygen Delivery High Flow Therapy with Na Oxygen Flow Rate 40 Fraction of Inspired Oxygen 60 12/10/24 11:50 12/10/24 12:00 12/10/24 12:00 Temperature 36.5 C Pulse Rate 77 95 Respiratory Rate 27 H Blood Pressure 132/65 Pulse Oximetry 97 97 Oxygen Delivery High Flow Therapy with Na Oxygen Flow Rate 40 Fraction of Inspired Oxygen 60 Intake/Output Intake/Output: Intake & Output 12/07/24 12/08/24 12/09/24 12/10/24 23:59 23:59 23:59 23:59 Intake Total 5315 078 7736 1060 Output Total 1900 2700 1900 250 Balance -420 -2450 -510 810 Meds/Results Medications: Active Medications Generic Name Dose Route Start Last Admin Trade Name Freq PRN Reason Stop Dose Admin Acetaminophen 650 mg 12/04/24 20:38 12/09/24 04:32 Acetaminophen 325 Mg Tablet PO 650 mg Q6H PRN Administration fever or pain 1-3 Atorvastatin Calcium 10 mg 12/04/24 21:00 12/09/24 20:35 Atorvastatin 10 Mg Tablet PO 10 mg HS HAJA Administration Benzonatate 100 mg 12/04/24 20:38 Benzonatate 100 Mg Capsule PO Q6H PRN cough Bisacodyl 10 mg 12/04/24 20:38 Bisacodyl 10 Mg Suppository RECTAL DAILY PRN constipation Dextrose 12.5 gm 12/04/24 20:40 Dextrose 50% 25 Gm/50 Ml Syringe IV PUSH PRN PRN Hypoglycemia Protocol Digoxin 500 mcg 12/05/24 09:00 12/09/24 08:53 Digoxin 250 Mcg Tablet PO 500 mcg DAILY HAJA Administration Diltiazem HCl 120 mg 12/07/24 09:00 12/09/24 08:53 Diltiazem Hcl Cd 120 Mg Cap.24hr PO 120 mg QAM HAJA Administration Fluticasone Propionate 1 spray 12/04/24 20:38 Fluticasone Propionate 0.05% Na Spr 16 Gm Btl (*Bkc) NASAL DAILY PRN allergy symptoms Glucagon 1 mg 12/04/24 20:40 Glucagon For Inj 1 Mg Vial IM PRN PRN Hypoglycemia Protocol Glucose 15 gm 12/04/24 20:40 Glucose Oral Gel 15 Gm Of Glucse In 37.5 Gm Tube PO PRN PRN Hypoglycemia Protocol Dextrose 1,000 mls @ 100 mls/hr 12/04/24 20:40 Dextrose 5% 1,000 Ml IVPB PRN PRN Hypoglycemia Protocol Insulin Aspart 3 - 6 units 12/08/24 11:47 12/10/24 12:05 Insulin Aspart (*Bkc) 100 Units/Ml SUB-Q 4 units TIDWM HAJA Administration Protocol Insulin Aspart 3 - 6 units 12/08/24 21:00 12/09/24 20:36 Insulin Aspart (*Bkc) 100 Units/Ml SUB-Q 4 units HS HAJA Administration Protocol Insulin Glargine 20 units 12/05/24 09:00 12/10/24 09:29 Insulin Glargine (*Bkc) 100 Units/Ml SUB-Q 20 units DAILY HAJA Administration Levalbuterol HCl 1.25 mg 12/05/24 14:00 12/10/24 07:15 Levalbuterol Neb 1.25 Mg/3 Ml INHALATION 1.25 mg Q6HRT HAJA Administration Magnesium Hydroxide 30 ml 12/04/24 20:38 Magnesium Hydroxide Susp 30 Ml Udc PO HS PRN constipation Melatonin 5 mg 12/04/24 21:00 12/09/24 20:35 Melatonin 5 Mg Tablet PO 5 mg HS HAJA Administration Methylprednisolone Sodium Succinate 40 mg 12/08/24 22:00 12/10/24 06:32 Methylprednisolone Sod Succ 125 Mg Vial IV PUSH 40 mg Q8HR HAJA Administration Metoprolol Tartrate 12.5 mg 12/05/24 12:00 12/08/24 05:02 Metoprolol Tartrate 12.5 Mg Tablet PO Not Given Q6HR HAJA Pantoprazole Sodium 40 mg 12/05/24 21:10 12/10/24 09:29 Pantoprazole 40 Mg Tablet PO 40 mg Q12HR HAJA Administration Polyethylene Glycol 17 gm 12/04/24 20:38 Polyethylene Glycol 3350 17 Gm Powd.Pack PO BID PRN constipation Sodium Chloride 500 mg 12/09/24 13:40 12/10/24 09:29 Sodium Chloride 500 Mg Tablet PO 500 mg BID HAJA Administration Tamsulosin HCl 0.4 mg 12/04/24 21:00 12/09/24 20:36 Tamsulosin Hcl 0.4 Mg Capsule PO 0.4 mg HS HAJA Administration Valacyclovir HCl 1,000 mg 12/08/24 21:00 12/10/24 09:29 Valacyclovir Hcl 500 Mg Tablet PO 12/11/24 21:01 1,000 mg Q12HR HAJA Administration Radiology Results: ITS Impressions Chest CT 12/04/24 10:59 IMPRESSION: Severe bilateral interstitial lung disease, as detailed above. Volume loss within the right hemithorax. Mediastinal lymphadenopathy. Findings suggesting prior granulomatous disease. Decreased attenuation within the periphery of the lateral margin of the spleen, possibly related to bolus timing in the absence of a history of trauma for which clinical correlation is needed. Chest X-Ray 12/10/24 07:14 IMPRESSION: 1. Persistent lower lung predominant diffuse interstitial and airspace opacities. Disc related to chronic interstitial lung disease with and peripheral honeycombing on prior CT favoring usual interstitial pneumonia (UIP) pattern a more acute pneumonia, moderate pulmonary edema or some combination thereof. 2. Cardiomegaly. 2. Small right pleural effusion.. Labs Labs: Laboratory Results - last 24 hr 12/08/24 12/09/24 12/09/24 16:13 16:16 19:32 WBC RBC Hgb Hct MCV MCH MCHC RDW Plt Count MPV Sodium Potassium Chloride Carbon Dioxide Anion Gap BUN Creatinine Estim Creat Clear Calc Estimated GFR Glucose POC Capillary Glucose 225 H 293 H Calcium Magnesium CCP IgG/IgA Ab 8 12/10/24 12/10/24 12/10/24 04:25 07:21 11:31 WBC 5.9 RBC 3.23 L Hgb 9.1 L Hct 26.6 L MCV 82.4 MCH 28.2 MCHC 34.2 RDW 14.5 Plt Count 233 MPV 8.8 Sodium 127 L Potassium 4.3 Chloride 96 L Carbon Dioxide 27 Anion Gap 4 BUN 32 H D Creatinine 1.12 Estim Creat Clear Calc 50 Estimated GFR > 60 Glucose 182 H POC Capillary Glucose 187 H 300 H Calcium 7.7 L Magnesium 2.1 CCP IgG/IgA Ab
--- NOTE | 2024-12-10 17:05 | PC.NURSE ---
Patient up in chair preparing for dinner with at bedside. This nurse to room to obtain blood sugar 281 and give 4 Units of insulin per guidelines. Patient given evening meds and tolerated well. Nurse exited room. to door yelling out for help. Tele monitor showed Asystole 7.53 pause in patient's hear beat. Staff to room. Patient's stated patient complained of feeling nauseous and his eyes rolled in the back of his head and back. Patient in chair voiced no complaints of chest pain, N/V at this time. Assisted patient back to bed. EKG and VS taken and stable. EKG in chart for provider review. Provider called to give report and message left at [phone]. remains at patient's bedside. Call light in reach. Will continue to monitor. Veda Richardson RN
--- NOTE | 2024-12-10 17:35 | PC.NURSE ---
phoned agricultural economics teacher Shake Sawyer again at [phone] and left message. Phoned the exchanged and requested provider be paged to call floor back at [phone]. Patient continues to rest in bed with at bedside and voiced no complaints or concerns at this time. No pauses noted on monitor. Will continue to monitor. Veda Richardson RN
[2024-12-10] MEDS: MELATONIN 5 MG TABLET PO (20:48)
[2024-12-10] MEDS: TAMSULOSIN HCL 0.4 MG CAPSULE PO (20:49)
[2024-12-10] MEDS: ATORVASTATIN 10 MG TABLET PO (20:49)
[2024-12-10 21:11] LABS: Digoxin 2.1 ng/mL (0.8-2.0)
[2024-12-10] MEDS: DIGOXIN IMMUNE FAB IVPB (23:42)
[2024-12-10] MEDS: SODIUM CHLORIDE 0.9% IVPB (23:42)
[2024-12-11] VITALS (25 sets, daily range): BP systolic 122–137; BP diastolic 64–69; PULSE 69–104; RESP 16–23; TEMP 36.4–36.6; O2SAT 91–99
[2024-12-11 04:48] LABS: Hematocrit 27.3 % (42.0-52.0); Hemoglobin 9.3 g/dL (14.0-18.0); Mean Corpuscular HGB Conc 34.1 g/dl (32-36); Mean Corpuscular Hemoglobin 28.1 pg (26-34); Mean Corpuscular Volume 82.5 fl (80-100); Platelet Count Result 220 k/mm3 (150-375); Red Blood Count 3.31 M/mm3 (4.6-6.20); White Blood Count 7.0 K/mm3 (4.5-10.0)
[2024-12-11 05:11] LABS: Anion Gap 2 mmol/L (4-12); Blood Urea Nitrogen 29 mg/dL (9-20); Calcium 7.9 mg/dL (8.4-10.2); Carbon Dioxide 29 mmol/L (22-30); Chloride 93 mmol/L (98-107); Estimated CRCL calculation 51 ml/min; Estimated Glomerular Filt Rate > 60; Glucose 183 mg/dL (65-110); Magnesium 2.3 mg/dL (1.6-2.3); Potassium 4.4 mmol/L (3.4-5.0); Sodium 124 mmol/L (137-145)
[2024-12-11] MEDS: SODIUM CHLORIDE 500 MG TABLET PO ×2 (08:39→16:33)
[2024-12-11] MEDS: PANTOPRAZOLE 40 MG TABLET PO ×2 (08:39→21:31)
[2024-12-11] MEDS: INSULIN GLARGINE (*BKC) 100 UNITS/ML 20 UNITS SUB-Q (08:40)
--- NOTE | 2024-12-11 11:32 | P.PNIM_ITS ---
Progress Note: A&P Assessment and Plan (1) Hypotension: Code(s): I95.9 - Hypotension, unspecified Status: Acute (2) Dyspnea: Code(s): R06.00 - Dyspnea, unspecified Status: Acute (3) Hyponatremia: Code(s): E87.1 - Hypo-osmolality and hyponatremia Status: Acute (4) Impaired skin integrity: Code(s): R23.9 - Unspecified skin changes Status: Acute (5) Interstitial lung disease: Code(s): J84.9 - Interstitial pulmonary disease, unspecified Status: Chronic (6) Atrial fibrillation: Code(s): I48.91 - Unspecified atrial fibrillation Status: Chronic Plan This is an 79 year male patient with past medical history significant pulmonary fibrosis status post COVID diagnosis on 6 L oxygen, atrial fibrillation on and control metoprolol who currently resides at [facility] Where he is currently at for rehabilitation. Prior to going to [facility], he was in the hospital at [facility] and transferred to [place] and ultimately transferred to [facility]. Pt alert, oriented x4 and without any acute complaint. He was sent to the ER with complaints of hypoxia and dyspnea after nursing service found him with low oxygen sats in his room, noted to be on 2L. He was sent to the ER where he required a few moments of BiPap and has ultimately recovered to his baseline on 5L Supplemental oxygen. His EKG upon arrival to the ER showed a variable rate/rhythm that was either ST or A-flutter/tach with rates from low 100s-120s. Although he has Metoprolol ordered for rate control as he does have a hx of A- fib, it was not given as pt's BP has been on the lower side. Pt has no respiratory complaints and no concerns of CP. His only complaint is pain in his coccyx region from breakdown. In the emergency room fall was performed EKG showing either sinus tachycardia versus a flutter with RVR, however unable to be controlled with beta blockade as patient's blood pressure has been low. CT of the chest showing severe bilateral interstitial lung disease with mediastinal lymphadenopathy present. CBC unremarkable with WBC is 5.3 and intact H&H. Metabolic panel showing hyponatremia at 1:23 a.m.. Renal function impaired with creatinine and BUN of 1.4/27, however we do not know patient's baseline as there is none historical in our system. Glucose noted to be 72. Urinalysis was unremarkable and coags are normal. ER physician was concerned for potential dehydration component contributing to patient's tachycardia. He was given a Liter of LR and albuterol nebulizer. patient with history of ILD most likely 2/2 COVID infection he had recently and possible environmental chemical exposure, patient is seen by his recreational vehicle resort manager patient is treated with high dose steroids and loading dose of methylprednisone 250mg IV q6 for 1 day and taper it down to 125mg q8, the recreational vehicle resort manager is doing investigation for the cause of pulmonary fibrosis, and also taper down the steroids to 40mg IV q8, patient oxygen demand in improving still on Airvo. Taper/wean as tolerated Redemonstration of diffuse interstitial thickening with a bilateral lower lobe distribution, likely chronic. Peripheral and bibasilar honeycombing. Bibasilar pleural thickening, right greater than left. Pulmonary following AFib paroxysmal on propafenone digoxin and metoprolol anticoagulated with apixaban.. Propafenone held by barrel finisher. Currently rate controlled on metoprolol and diltiazem. Echo with EF 70% aortic valve not well visualized but does not appear to have any hemodynamically significant aortic stenosis no significant other valvular abnormalities. significant pauses overngiht. currenlty digoxin, metoprolol and diltiazem on hold. reconsult cardiology. Digoxin level came back elevated. Received digoxin immune gerardo. Bradycardia Could be due to digoxin. Appreciate cardiology recommendations Hyponatremia 122 add salt tablet looks euvolemic. TSH normal DVT prohylaxis on Eliquis Code status full code discussed with the patient again. Subjective Date/time seen: 12/11/24 11:32 Interval history: Yesterday afternoon had another long pause. No further pauses since then. Digoxin level came back elevated. Breathing is about the same. Remains on Airvo Review of Systems Review of Systems: All systems reviewed & are unremarkable except as noted in HPI and below Exam Narrative: Patient is comfortable, NAD HEENT: eyes are clear and none icteric LUNGS: Bilateral fair air entry with harsh breath sounds HEART: RR S1S2 ABD: BS+, Soft and nontender Lower extremities: no edema SKIN: nonjaundiced Neuro: grossly intact. Objective Data Vital Signs Vital Signs: Vital Signs - 24 hr 12/10/24 11:50 12/10/24 12:00 12/10/24 12:00 Temperature 97.7 F Pulse Rate 77 95 Respiratory Rate 27 H Blood Pressure 132/65 Pulse Oximetry 97 97 Oxygen Delivery High Flow Therapy with Na Oxygen Flow Rate 40 Fraction of Inspired Oxygen 60 12/10/24 13:05 12/10/24 13:05 12/10/24 13:10 Temperature Pulse Rate 92 82 Respiratory Rate 20 20 Blood Pressure Pulse Oximetry 94 Oxygen Delivery High Flow Therapy with Na Oxygen Flow Rate 30 Fraction of Inspired Oxygen 50 12/10/24 14:00 12/10/24 15:25 12/10/24 16:00 Temperature Pulse Rate 92 Respiratory Rate Blood Pressure Pulse Oximetry 93 93 Oxygen Delivery High Flow Therapy with Na High Flow Therapy with Na Oxygen Flow Rate 30 30 Fraction of Inspired Oxygen 70 70 12/10/24 16:00 12/10/24 16:00 12/10/24 17:59 Temperature 97.5 F L Pulse Rate 78 76 80 Respiratory Rate 28 H Blood Pressure 127/67 Pulse Oximetry 93 Oxygen Delivery Oxygen Flow Rate Fraction of Inspired Oxygen 12/10/24 19:51 12/10/24 20:00 12/10/24 20:00 Temperature 97.7 F Pulse Rate 83 87 Respiratory Rate 22 H Blood Pressure 125/66 Pulse Oximetry 98 99 Oxygen Delivery High Flow Therapy with Na Oxygen Flow Rate 30 Fraction of Inspired Oxygen 70 12/10/24 20:12 12/10/24 20:18 12/10/24 20:35 Temperature Pulse Rate 81 81 Respiratory Rate 18 18 Blood Pressure Pulse Oximetry 94 Oxygen Delivery High Flow Therapy with Na Oxygen Flow Rate 30 Fraction of Inspired Oxygen 50 12/10/24 22:00 12/10/24 23:33 12/11/24 00:00 Temperature 97.7 F Pulse Rate 77 87 Respiratory Rate 21 H Blood Pressure 128/67 Pulse Oximetry 98 99 Oxygen Delivery High Flow Therapy with Na Oxygen Flow Rate 30 Fraction of Inspired Oxygen 70 12/11/24 00:00 12/11/24 02:00 12/11/24 02:30 Temperature Pulse Rate 69 78 81 Respiratory Rate 18 Blood Pressure Pulse Oximetry Oxygen Delivery Oxygen Flow Rate Fraction of Inspired Oxygen 12/11/24 02:35 12/11/24 03:35 12/11/24 04:00 Temperature 97.8 F Pulse Rate 81 89 86 Respiratory Rate 18 22 H Blood Pressure 129/66 Pulse Oximetry 99 Oxygen Delivery Oxygen Flow Rate Fraction of Inspired Oxygen 12/11/24 04:00 12/11/24 06:00 12/11/24 07:14 Temperature Pulse Rate 89 96 Respiratory Rate 16 Blood Pressure Pulse Oximetry 99 97 Oxygen Delivery High Flow Therapy with Na High Flow Therapy with Na Oxygen Flow Rate 30 30 Fraction of Inspired Oxygen 70 60 12/11/24 07:55 12/11/24 08:00 12/11/24 08:42 Temperature 97.6 F Pulse Rate 85 Respiratory Rate 22 H Blood Pressure 123/67 Pulse Oximetry 97 94 94 Oxygen Delivery High Flow Therapy with Na High Flow Therapy with Na Oxygen Flow Rate 30 30 Fraction of Inspired Oxygen 60 60 12/11/24 08:42 12/11/24 08:53 Temperature Pulse Rate 93 93 Respiratory Rate 18 18 Blood Pressure Pulse Oximetry Oxygen Delivery Oxygen Flow Rate Fraction of Inspired Oxygen Intake/Output Intake/Output: Intake & Output 12/08/24 12/09/24 12/10/24 12/11/24 23:59 23:59 23:59 23:59 Intake Total 250 1390 1300 590 Output Total 2700 1900 2050 600 [facility] -2450 -510 -750 -10 Meds/Results Medications: Active Medications Generic Name Dose Route Start Last Admin Trade Name Freq PRN Reason Stop Dose Admin Acetaminophen 650 mg 12/04/24 20:38 12/09/24 04:32 Acetaminophen 325 Mg Tablet PO 650 mg Q6H PRN Administration fever or pain 1-3 Atorvastatin Calcium 10 mg 12/04/24 21:00 12/10/24 20:49 Atorvastatin 10 Mg Tablet PO 10 mg HS HAJA Administration Benzonatate 100 mg 12/04/24 20:38 Benzonatate 100 Mg Capsule PO Q6H PRN cough Bisacodyl 10 mg 12/04/24 20:38 Bisacodyl 10 Mg Suppository RECTAL DAILY PRN constipation Dextrose 12.5 gm 12/04/24 20:40 Dextrose 50% 25 Gm/50 Ml Syringe IV PUSH PRN PRN Hypoglycemia Protocol Diltiazem HCl 120 mg 12/07/24 09:00 12/09/24 08:53 Diltiazem Hcl Cd 120 Mg Cap.24hr PO 120 mg QAM HAJA Administration Fluticasone Propionate 1 spray 12/04/24 20:38 Fluticasone Propionate 0.05% Na Spr 16 Gm Btl (*Bkc) NASAL DAILY PRN allergy symptoms Glucagon 1 mg 12/04/24 20:40 Glucagon For Inj 1 Mg Vial IM PRN PRN Hypoglycemia Protocol Glucose 15 gm 12/04/24 20:40 Glucose Oral Gel 15 Gm Of Glucse In 37.5 Gm Tube PO PRN PRN Hypoglycemia Protocol Dextrose 1,000 mls @ 100 mls/hr 12/04/24 20:40 Dextrose 5% 1,000 Ml IVPB PRN PRN Hypoglycemia Protocol Insulin Aspart 3 - 6 units 12/08/24 11:47 12/11/24 08:33 Insulin Aspart (*Bkc) 100 Units/Ml SUB-Q Not Given TIDWM HAJA Protocol Insulin Aspart 3 - 6 units 12/08/24 21:00 12/10/24 20:49 Insulin Aspart (*Bkc) 100 Units/Ml SUB-Q 4 units HS HAJA Administration Protocol Insulin Glargine 20 units 12/05/24 09:00 12/11/24 08:40 Insulin Glargine (*Bkc) 100 Units/Ml SUB-Q 20 units DAILY HAJA Administration Levalbuterol HCl 1.25 mg 12/05/24 14:00 12/11/24 08:42 Levalbuterol Neb 1.25 Mg/3 Ml INHALATION 1.25 mg Q6HRT HAJA Administration Magnesium Hydroxide 30 ml 12/04/24 20:38 Magnesium Hydroxide Susp 30 Ml Udc PO HS PRN constipation Melatonin 5 mg 12/04/24 21:00 12/10/24 20:48 Melatonin 5 Mg Tablet PO 5 mg HS HAJA Administration Methylprednisolone Sodium Succinate 40 mg 12/11/24 14:00 Methylprednisolone Sod Succ 40 Mg Vial IV PUSH Q8HR HAJA Metoprolol Tartrate 12.5 mg 12/05/24 12:00 12/08/24 05:02 Metoprolol Tartrate 12.5 Mg Tablet PO Not Given Q6HR HAJA Pantoprazole Sodium 40 mg 12/05/24 21:10 12/11/24 08:39 Pantoprazole 40 Mg Tablet PO 40 mg Q12HR HAJA Administration Polyethylene Glycol 17 gm 12/04/24 20:38 Polyethylene Glycol 3350 17 Gm Powd.Pack PO BID PRN constipation Sodium Chloride 500 mg 12/09/24 13:40 12/11/24 08:39 Sodium Chloride 500 Mg Tablet PO 500 mg BID HAJA Administration Tamsulosin HCl 0.4 mg 12/04/24 21:00 12/10/24 20:49 Tamsulosin Hcl 0.4 Mg Capsule PO 0.4 mg HS HAJA Administration Valacyclovir HCl 1,000 mg 12/08/24 21:00 12/11/24 08:39 Valacyclovir Hcl 500 Mg Tablet PO 12/11/24 21:01 1,000 mg Q12HR HAJA Administration Radiology Results: ITS Impressions Chest CT 12/04/24 10:59 IMPRESSION: Severe bilateral interstitial lung disease, as detailed above. Volume loss within the right hemithorax. Mediastinal lymphadenopathy. Findings suggesting prior granulomatous disease. Decreased attenuation within the periphery of the lateral margin of the spleen, possibly related to bolus timing in the absence of a history of trauma for which clinical correlation is needed. Chest X-Ray 12/10/24 07:14 IMPRESSION: 1. Persistent lower lung predominant diffuse interstitial and airspace opacities. Disc related to chronic interstitial lung disease with and peripheral honeycombing on prior CT favoring usual interstitial pneumonia (UIP) pattern a more acute pneumonia, moderate pulmonary edema or some combination thereof. 2. Cardiomegaly. 2. Small right pleural effusion.. Labs Labs: Laboratory Results - last 24 hr 12/10/24 12/10/24 12/10/24 11:31 16:34 19:47 WBC RBC Hgb Hct MCV MCH MCHC RDW Plt Count MPV Sodium Potassium Chloride Carbon Dioxide Anion Gap BUN Creatinine Estim Creat Clear Calc Estimated GFR Glucose POC Capillary Glucose 300 H 281 H 284 H Calcium Magnesium Digoxin 12/10/24 12/11/24 12/11/24 20:33 04:26 07:22 WBC 7.0 RBC 3.31 L Hgb 9.3 L Hct 27.3 L MCV 82.5 MCH 28.1 MCHC 34.1 RDW 14.5 Plt Count 220 MPV 8.7 Sodium 124 L Potassium 4.4 Chloride 93 L Carbon Dioxide 29 Anion Gap 2 L BUN 29 H Creatinine 1.10 Estim Creat Clear Calc 51 Estimated GFR > 60 Glucose 183 H POC Capillary Glucose 163 H Calcium 7.9 L Magnesium 2.3 Digoxin 2.1 H*
--- NOTE | 2024-12-11 12:20 | PM.PNCARD ---
Progress Note: A&P Assessment and Plan (1) Atrial fibrillation: Code(s): I48.91 - Unspecified atrial fibrillation Status: Chronic Plan Persistent atrial fibrillation Pauses in the EKG likely iatrogenic secondary to digoxin metoprolol and diltiazem Chronic respiratory failure secondary to interstitial lung disease Plan Continue apixaban DC propafenone, DC digoxin Hold metoprolol and diltiazem Follow-up if the patient has recurrent episodes of bradyarrhythmia patient will probably need a pacemaker Subjective Date/time seen: 12/11/24 12:20 Interval history: No acute events Telemetry atrial fibrillation rate controlled 80s with intermittent pauses up to 7.5 seconds 1 episode of symptomatic bradycardia yesterday with near syncope Review of Systems Review of Systems: All systems reviewed & are unremarkable except as noted in HPI and below Exam Const: General: comfortable, no acute distress, alert and awake Orientation/consciousness: patient oriented x3 HENMT: Head: normal to inspection Eyes: General: appearance normal, both eyes and all related structures Pupils: Equal, round and reactive pupils present Neck: Neck: normal visual inspection, supple and no JVD Carotids: normal carotid upstroke Resp: Auscultation: crackles and diminished lung sounds Cardio: Rate: regular rate Rhythm: abnormal rhythm irregularly irregular Heart sounds: S1 normal heart sound present, S2 normal heart sound present and no murmurs GI: Auscultation: normal bowel sounds Skin: General skin exam: normal color Neuro: General: patient oriented x3 Cranial nerves: Yes Equal, round and reactive pupils present Extrem: General: normal to inspection Psych: Appearance: grossly normal Mental Status: mental status grossly normal Objective Data Vital Signs Vital Signs: Vital Signs - 24 hr 12/10/24 13:05 12/10/24 13:05 12/10/24 13:10 Temperature Pulse Rate 92 82 Respiratory Rate 20 20 Blood Pressure Pulse Oximetry 94 Oxygen Delivery High Flow Therapy with Na Oxygen Flow Rate 30 Fraction of Inspired Oxygen 50 12/10/24 14:00 12/10/24 15:25 12/10/24 16:00 Temperature Pulse Rate 92 Respiratory Rate Blood Pressure Pulse Oximetry 93 93 Oxygen Delivery High Flow Therapy with Na High Flow Therapy with Na Oxygen Flow Rate 30 30 Fraction of Inspired Oxygen 70 70 12/10/24 16:00 12/10/24 16:00 12/10/24 17:59 Temperature 36.4 C L Pulse Rate 78 76 80 Respiratory Rate 28 H Blood Pressure 127/67 Pulse Oximetry 93 Oxygen Delivery Oxygen Flow Rate Fraction of Inspired Oxygen 12/10/24 19:51 12/10/24 20:00 12/10/24 20:00 Temperature 36.5 C Pulse Rate 83 87 Respiratory Rate 22 H Blood Pressure 125/66 Pulse Oximetry 98 99 Oxygen Delivery High Flow Therapy with Na Oxygen Flow Rate 30 Fraction of Inspired Oxygen 70 12/10/24 20:12 12/10/24 20:18 12/10/24 20:35 Temperature Pulse Rate 81 81 Respiratory Rate 18 18 Blood Pressure Pulse Oximetry 94 Oxygen Delivery High Flow Therapy with Na Oxygen Flow Rate 30 Fraction of Inspired Oxygen 50 12/10/24 22:00 12/10/24 23:33 12/11/24 00:00 Temperature 36.5 C Pulse Rate 77 87 Respiratory Rate 21 H Blood Pressure 128/67 Pulse Oximetry 98 99 Oxygen Delivery High Flow Therapy with Na Oxygen Flow Rate 30 Fraction of Inspired Oxygen 70 12/11/24 00:00 12/11/24 02:00 12/11/24 02:30 Temperature Pulse Rate 69 78 81 Respiratory Rate 18 Blood Pressure Pulse Oximetry Oxygen Delivery Oxygen Flow Rate Fraction of Inspired Oxygen 12/11/24 02:35 12/11/24 03:35 12/11/24 04:00 Temperature 36.6 C Pulse Rate 81 89 86 Respiratory Rate 18 22 H Blood Pressure 129/66 Pulse Oximetry 99 Oxygen Delivery Oxygen Flow Rate Fraction of Inspired Oxygen 12/11/24 04:00 12/11/24 06:00 12/11/24 07:14 Temperature Pulse Rate 89 96 Respiratory Rate 16 Blood Pressure Pulse Oximetry 99 97 Oxygen Delivery High Flow Therapy with Na High Flow Therapy with Na Oxygen Flow Rate 30 30 Fraction of Inspired Oxygen 70 60 12/11/24 07:55 12/11/24 08:00 12/11/24 08:42 Temperature 36.4 C Pulse Rate 85 Respiratory Rate 22 H Blood Pressure 123/67 Pulse Oximetry 97 94 94 Oxygen Delivery High Flow Therapy with Na High Flow Therapy with Na Oxygen Flow Rate 30 30 Fraction of Inspired Oxygen 60 60 12/11/24 08:42 12/11/24 08:53 12/11/24 12:00 Temperature 36.4 C Pulse Rate 93 93 97 Respiratory Rate 18 18 23 H Blood Pressure 137/64 Pulse Oximetry 94 Oxygen Delivery Oxygen Flow Rate Fraction of Inspired Oxygen Intake/Output Intake/Output: Intake & Output 12/08/24 12/09/24 12/10/24 12/11/24 23:59 23:59 23:59 23:59 Intake Total 250 1390 1300 590 Output Total 2700 1900 2050 600 Balance -2450 -510 -750 -10 Meds/Results Medications: Active Medications Generic Name Dose Route Start Last Admin Trade Name Freq PRN Reason Stop Dose Admin Acetaminophen 650 mg 12/04/24 20:38 12/09/24 04:32 Acetaminophen 325 Mg Tablet PO 650 mg Q6H PRN Administration fever or pain 1-3 Atorvastatin Calcium 10 mg 12/04/24 21:00 12/10/24 20:49 Atorvastatin 10 Mg Tablet PO 10 mg HS HAJA Administration Benzonatate 100 mg 12/04/24 20:38 Benzonatate 100 Mg Capsule PO Q6H PRN cough Bisacodyl 10 mg 12/04/24 20:38 Bisacodyl 10 Mg Suppository RECTAL DAILY PRN constipation Dextrose 12.5 gm 12/04/24 20:40 Dextrose 50% 25 Gm/50 Ml Syringe IV PUSH PRN PRN Hypoglycemia Protocol Diltiazem HCl 120 mg 12/07/24 09:00 12/09/24 08:53 Diltiazem Hcl Cd 120 Mg Cap.24hr PO 120 mg QAM HAJA Administration Fluticasone Propionate 1 spray 12/04/24 20:38 Fluticasone Propionate 0.05% Na Spr 16 Gm Btl (*Bkc) NASAL DAILY PRN allergy symptoms Glucagon 1 mg 12/04/24 20:40 Glucagon For Inj 1 Mg Vial IM PRN PRN Hypoglycemia Protocol Glucose 15 gm 12/04/24 20:40 Glucose Oral Gel 15 Gm Of Glucse In 37.5 Gm Tube PO PRN PRN Hypoglycemia Protocol Dextrose 1,000 mls @ 100 mls/hr 12/04/24 20:40 Dextrose 5% 1,000 Ml IVPB PRN PRN Hypoglycemia Protocol Insulin Aspart 3 - 6 units 12/08/24 11:47 12/11/24 08:33 Insulin Aspart (*Bkc) 100 Units/Ml SUB-Q Not Given TIDWM HAJA Protocol Insulin Aspart 3 - 6 units 12/08/24 21:00 12/10/24 20:49 Insulin Aspart (*Bkc) 100 Units/Ml SUB-Q 4 units HS HAJA Administration Protocol Insulin Glargine 20 units 12/05/24 09:00 12/11/24 08:40 Insulin Glargine (*Bkc) 100 Units/Ml SUB-Q 20 units DAILY HAJA Administration Levalbuterol HCl 1.25 mg 12/05/24 14:00 12/11/24 08:42 Levalbuterol Neb 1.25 Mg/3 Ml INHALATION 1.25 mg Q6HRT HAJA Administration Magnesium Hydroxide 30 ml 12/04/24 20:38 Magnesium Hydroxide Susp 30 Ml Udc PO HS PRN constipation Melatonin 5 mg 12/04/24 21:00 12/10/24 20:48 Melatonin 5 Mg Tablet PO 5 mg HS HAJA Administration Methylprednisolone Sodium Succinate 40 mg 12/11/24 14:00 Methylprednisolone Sod Succ 40 Mg Vial IV PUSH Q8HR HAJA Metoprolol Tartrate 12.5 mg 12/05/24 12:00 12/08/24 05:02 Metoprolol Tartrate 12.5 Mg Tablet PO Not Given Q6HR HAJA Pantoprazole Sodium 40 mg 12/05/24 21:10 12/11/24 08:39 Pantoprazole 40 Mg Tablet PO 40 mg Q12HR HAJA Administration Polyethylene Glycol 17 gm 12/04/24 20:38 Polyethylene Glycol 3350 17 Gm Powd.Pack PO BID PRN constipation Sodium Chloride 500 mg 12/09/24 13:40 12/11/24 08:39 Sodium Chloride 500 Mg Tablet PO 500 mg BID HAJA Administration Tamsulosin HCl 0.4 mg 12/04/24 21:00 12/10/24 20:49 Tamsulosin Hcl 0.4 Mg Capsule PO 0.4 mg HS HAJA Administration Valacyclovir HCl 1,000 mg 12/08/24 21:00 12/11/24 08:39 Valacyclovir Hcl 500 Mg Tablet PO 12/11/24 21:01 1,000 mg Q12HR HAJA Administration Radiology Results: ITS Impressions Chest CT 12/04/24 10:59 IMPRESSION: Severe bilateral interstitial lung disease, as detailed above. Volume loss within the right hemithorax. Mediastinal lymphadenopathy. Findings suggesting prior granulomatous disease. Decreased attenuation within the periphery of the lateral margin of the spleen, possibly related to bolus timing in the absence of a history of trauma for which clinical correlation is needed. Chest X-Ray 12/10/24 07:14 IMPRESSION: 1. Persistent lower lung predominant diffuse interstitial and airspace opacities. Disc related to chronic interstitial lung disease with and peripheral honeycombing on prior CT favoring usual interstitial pneumonia (UIP) pattern a more acute pneumonia, moderate pulmonary edema or some combination thereof. 2. Cardiomegaly. 2. Small right pleural effusion.. Labs Labs: Laboratory Results - last 24 hr 12/10/24 12/10/24 12/10/24 16:34 19:47 20:33 WBC RBC Hgb Hct MCV MCH MCHC RDW Plt Count MPV Sodium Potassium Chloride Carbon Dioxide Anion Gap BUN Creatinine Estim Creat Clear Calc Estimated GFR Glucose POC Capillary Glucose 281 H 284 H Calcium Magnesium Digoxin 2.1 H* 12/11/24 12/11/24 04:26 07:22 WBC 7.0 RBC 3.31 L Hgb 9.3 L Hct 27.3 L MCV 82.5 MCH 28.1 MCHC 34.1 RDW 14.5 Plt Count 220 MPV 8.7 Sodium 124 L Potassium 4.4 Chloride 93 L Carbon Dioxide 29 Anion Gap 2 L BUN 29 H Creatinine 1.10 Estim Creat Clear Calc 51 Estimated GFR > 60 Glucose 183 H POC Capillary Glucose 163 H Calcium 7.9 L Magnesium 2.3 Digoxin
[2024-12-11 12:30] LABS: Digoxin 2.3 ng/mL (0.8-2.0)
[2024-12-11] MEDS: INSULIN ASPART (*BKC) 100 UNITS/ML SUB-Q ×3 (13:00→21:33)
[2024-12-11] MEDS: DIGOXIN IMMUNE FAB IVPB (13:36)
[2024-12-11] MEDS: SODIUM CHLORIDE 0.9% IVPB (13:36)
[2024-12-11] MEDS: MELATONIN 5 MG TABLET PO (21:31)
[2024-12-11] MEDS: ATORVASTATIN 10 MG TABLET PO (21:31)
[2024-12-11] MEDS: TAMSULOSIN HCL 0.4 MG CAPSULE PO (21:31)
[2024-12-12] VITALS (34 sets, daily range): BP systolic 111–138; BP diastolic 65–75; PULSE 80–105; RESP 16–22; TEMP 36.3–36.6; O2SAT 94–100
[2024-12-12 04:35] LABS: Hematocrit 28.1 % (42.0-52.0); Hemoglobin 9.4 g/dL (14.0-18.0); Mean Corpuscular HGB Conc 33.5 g/dl (32-36); Mean Corpuscular Hemoglobin 27.9 pg (26-34); Mean Corpuscular Volume 83.4 fl (80-100); Platelet Count Result 231 k/mm3 (150-375); Red Blood Count 3.37 M/mm3 (4.6-6.20); White Blood Count 7.2 K/mm3 (4.5-10.0)
[2024-12-12 05:00] LABS: Anion Gap 1 mmol/L (4-12); Blood Urea Nitrogen 28 mg/dL (9-20); Calcium 8.0 mg/dL (8.4-10.2); Carbon Dioxide 31 mmol/L (22-30); Chloride 93 mmol/L (98-107); Estimated CRCL calculation 57 ml/min; Estimated Glomerular Filt Rate > 60; Glucose 166 mg/dL (65-110); Magnesium 2.2 mg/dL (1.6-2.3); Potassium 4.5 mmol/L (3.4-5.0); Sodium 125 mmol/L (137-145)
--- NOTE | 2024-12-12 07:30 | P.PNIM_ITS ---
Progress Note: A&P Assessment and Plan (1) Hypotension: Code(s): I95.9 - Hypotension, unspecified Status: Acute (2) Dyspnea: Code(s): R06.00 - Dyspnea, unspecified Status: Acute (3) Hyponatremia: Code(s): E87.1 - Hypo-osmolality and hyponatremia Status: Acute (4) Impaired skin integrity: Code(s): R23.9 - Unspecified skin changes Status: Acute (5) Interstitial lung disease: Code(s): J84.9 - Interstitial pulmonary disease, unspecified Status: Chronic (6) Atrial fibrillation: Code(s): I48.91 - Unspecified atrial fibrillation Status: Chronic Plan This is an 79 year male patient with past medical history significant pulmonary fibrosis status post COVID diagnosis on 6 L oxygen, atrial fibrillation on and control metoprolol who currently resides at [facility] Where he is currently at for rehabilitation. Prior to going to [facility], he was in the hospital at [place] and transferred to [place] and ultimately transferred to [facility]. Pt alert, oriented x4 and without any acute complaint. He was sent to the ER with complaints of hypoxia and dyspnea after nursing service found him with low oxygen sats in his room, noted to be on 2L. He was sent to the ER where he required a few moments of BiPap and has ultimately recovered to his baseline on 5L Supplemental oxygen. His EKG upon arrival to the ER showed a variable rate/rhythm that was either ST or A-flutter/tach with rates from low 100s-120s. Although he has Metoprolol ordered for rate control as he does have a hx of A- fib, it was not given as pt's BP has been on the lower side. Pt has no respiratory complaints and no concerns of CP. His only complaint is pain in his coccyx region from breakdown. In the emergency room fall was performed EKG showing either sinus tachycardia versus a flutter with RVR, however unable to be controlled with beta blockade as patient's blood pressure has been low. CT of the chest showing severe bilateral interstitial lung disease with mediastinal lymphadenopathy present. CBC unremarkable with WBC is 5.3 and intact H&H. Metabolic panel showing hyponatremia at 1:23 a.m.. Renal function impaired with creatinine and BUN of 1.4/27, however we do not know patient's baseline as there is none historical in our system. Glucose noted to be 72. Urinalysis was unremarkable and coags are normal. ER physician was concerned for potential dehydration component contributing to patient's tachycardia. He was given a Liter of LR and albuterol nebulizer. patient with history of ILD most likely 2/2 COVID infection he had recently and possible environmental chemical exposure, patient is seen by his chef concierge patient is treated with high dose steroids and loading dose of methylprednisone 250mg IV q6 for 1 day and taper it down to 125mg q8, the chef concierge is doing investigation for the cause of pulmonary fibrosis, and also taper down the steroids to 40mg IV q8, patient oxygen demand in improving still on Airvo. Taper/wean as tolerated Redemonstration of diffuse interstitial thickening with a bilateral lower lobe distribution, likely chronic. Peripheral and bibasilar honeycombing. Bibasilar pleural thickening, right greater than left. Pulmonary following AFib paroxysmal on propafenone digoxin and metoprolol anticoagulated with apixaban.. Propafenone held by flight engineer inspector. Currently rate controlled on metoprolol and diltiazem. Echo with EF 70% aortic valve not well visualized but does not appear to have any hemodynamically significant aortic stenosis no significant other valvular abnormalities. significant pauses overngiht. currenlty digoxin, metoprolol and diltiazem on hold. reconsult cardiology. Digoxin level came back elevated. Received digoxin immune gerardo. Bradycardia Could be due to digoxin. Appreciate cardiology recommendations Hyponatremia 122 add salt tablet looks euvolemic. TSH normal DVT prohylaxis on Eliquis Code status full code discussed with the patient again. Subjective Date/time seen: 12/12/24 07:30 Interval history: Ordered digoxin level for tomorrow. CT chest shows severe peripheral and lower lung predominant interstitial lung disease. Pulmonology following Review of Systems Review of Systems: All systems reviewed & are unremarkable except as noted in HPI and below Exam Narrative: Patient is comfortable, NAD HEENT: eyes are clear and none icteric LUNGS: Bilateral fair air entry with harsh breath sounds HEART: RR S1S2 ABD: BS+, Soft and nontender Lower extremities: no edema SKIN: nonjaundiced Neuro: grossly intact. Const: General: comfortable and no acute distress Other: Elderly male pt lying in bed at this time in no acute distress. HENMT: Face/Nose/Sinus: Normal nares present Mouth: Yes moist mucous membranes Eyes: General: appearance normal, both eyes and all related structures Neck: Neck: supple and no JVD Lymphatic: lymphadenopathy not noted Chest: Other: Non-tender Resp: Effort & Inspection: normal respiratory effort Auscultation: rhonchi lower bilaterally (coarse in bases.) Cardio: Rate: tachycardic Rhythm: regular rhythm Heart sounds: no gallop s, no murmurs and no rubs GI: Auscultation: normal bowel sounds Skin: General skin exam: rashes (Red, purpural rash in a band around the abdomen, back and the sides ) and wounds noted (coccyx stage 2) Rashes: rashes noted (Red, purpural rash in a band around the abdomen, back and the sides ) Wounds: wounds noted (coccyx stage 2) Other: Rash is in a location where a depends or an adult brief would sit on his skin. Pt acknowledges that he does wear a brief at the residential. Neuro: Speech: normal speech Motor exam (neuro): 5/5 motor strength present throughout Sensory Exam: normal sensation Other: No focal deficit. Extrem: General: no edema and no pedal edema Other: No swelling present. FROM of extremities without deficit. Psych: Mental Status: mental status grossly normal Affect: normal affect Objective Data Vital Signs Vital Signs: Vital Signs - 24 hr 12/11/24 07:55 12/11/24 08:00 12/11/24 08:00 Temperature 97.6 F Pulse Rate 85 93 Respiratory Rate 22 H Blood Pressure 123/67 Pulse Oximetry 97 94 Oxygen Delivery High Flow Therapy with Na Oxygen Flow Rate 30 Fraction of Inspired Oxygen 60 12/11/24 08:42 12/11/24 08:42 12/11/24 08:53 Temperature Pulse Rate 93 93 Respiratory Rate 18 18 Blood Pressure Pulse Oximetry 94 Oxygen Delivery High Flow Therapy with Na Oxygen Flow Rate 30 Fraction of Inspired Oxygen 60 12/11/24 10:00 12/11/24 12:00 12/11/24 12:00 Temperature 97.6 F Pulse Rate 91 97 Respiratory Rate 23 H Blood Pressure 137/64 Pulse Oximetry 94 96 Oxygen Delivery High Flow Therapy with Na Oxygen Flow Rate 30 Fraction of Inspired Oxygen 60 12/11/24 12:00 12/11/24 13:15 12/11/24 13:20 Temperature Pulse Rate 97 97 Respiratory Rate 18 Blood Pressure Pulse Oximetry 96 Oxygen Delivery Oxygen Flow Rate 30 Fraction of Inspired Oxygen 50 12/11/24 13:25 12/11/24 14:00 12/11/24 16:00 Temperature Pulse Rate 93 97 Respiratory Rate 18 Blood Pressure Pulse Oximetry 96 Oxygen Delivery High Flow Therapy with Na Oxygen Flow Rate 30 Fraction of Inspired Oxygen 60 12/11/24 16:00 12/11/24 16:00 12/11/24 18:00 Temperature 97.8 F Pulse Rate 96 76 96 Respiratory Rate 21 H Blood Pressure 135/69 Pulse Oximetry 98 Oxygen Delivery Oxygen Flow Rate Fraction of Inspired Oxygen 12/11/24 19:41 12/11/24 19:50 12/11/24 20:00 Temperature 97.9 F Pulse Rate 92 96 104 H Respiratory Rate 18 18 20 Blood Pressure 122/65 Pulse Oximetry 98 Oxygen Delivery Oxygen Flow Rate Fraction of Inspired Oxygen 12/11/24 20:00 12/11/24 20:00 12/11/24 21:16 Temperature Pulse Rate 85 Respiratory Rate Blood Pressure Pulse Oximetry 91 96 Oxygen Delivery High Flow Therapy with Na High Flow Therapy with Na Oxygen Flow Rate 30 30 Fraction of Inspired Oxygen 50 50 12/11/24 22:00 12/12/24 00:00 12/12/24 00:00 Temperature Pulse Rate 89 86 Respiratory Rate Blood Pressure Pulse Oximetry 98 Oxygen Delivery High Flow Therapy with Na Oxygen Flow Rate 30 Fraction of Inspired Oxygen 50 12/12/24 00:40 12/12/24 02:00 12/12/24 02:26 Temperature 97.3 F L Pulse Rate 101 H 80 95 Respiratory Rate 20 20 Blood Pressure 128/66 Pulse Oximetry 97 Oxygen Delivery Oxygen Flow Rate Fraction of Inspired Oxygen 12/12/24 02:31 12/12/24 03:45 12/12/24 04:58 Temperature 97.8 F Pulse Rate 97 98 Respiratory Rate 22 H 20 Blood Pressure 127/65 Pulse Oximetry 96 99 Oxygen Delivery High Flow Therapy with Na Oxygen Flow Rate 30 Fraction of Inspired Oxygen 50 Intake/Output Intake/Output: Intake & Output 12/09/24 12/10/24 12/11/24 12/12/24 23:59 23:59 23:59 23:59 Intake Total 1390 1300 1070 50 Output Total 1900 2050 2150 850 Balance -510 -750 -1080 -800 Meds/Results Medications: Active Medications Generic Name Dose Route Start Last Admin Trade Name Freq PRN Reason Stop Dose Admin Acetaminophen 650 mg 12/04/24 20:38 12/09/24 04:32 Acetaminophen 325 Mg Tablet PO 650 mg Q6H PRN Administration fever or pain 1-3 Atorvastatin Calcium 10 mg 12/04/24 21:00 12/11/24 21:31 Atorvastatin 10 Mg Tablet PO 10 mg HS HAJA Administration Benzonatate 100 mg 12/04/24 20:38 Benzonatate 100 Mg Capsule PO Q6H PRN cough Bisacodyl 10 mg 12/04/24 20:38 Bisacodyl 10 Mg Suppository RECTAL DAILY PRN constipation Dextrose 12.5 gm 12/04/24 20:40 Dextrose 50% 25 Gm/50 Ml Syringe IV PUSH PRN PRN Hypoglycemia Protocol Diltiazem HCl 120 mg 12/07/24 09:00 12/09/24 08:53 Diltiazem Hcl Cd 120 Mg Cap.24hr PO 120 mg QAM HAJA Administration Fluticasone Propionate 1 spray 12/04/24 20:38 Fluticasone Propionate 0.05% Na Spr 16 Gm Btl (*Bkc) NASAL DAILY PRN allergy symptoms Glucagon 1 mg 12/04/24 20:40 Glucagon For Inj 1 Mg Vial IM PRN PRN Hypoglycemia Protocol Glucose 15 gm 12/04/24 20:40 Glucose Oral Gel 15 Gm Of Glucse In 37.5 Gm Tube PO PRN PRN Hypoglycemia Protocol Dextrose 1,000 mls @ 100 mls/hr 12/04/24 20:40 Dextrose 5% 1,000 Ml IVPB PRN PRN Hypoglycemia Protocol Insulin Aspart 3 - 6 units 12/08/24 11:47 12/11/24 16:33 Insulin Aspart (*Bkc) 100 Units/Ml SUB-Q 4 units TIDWM HAJA Administration Protocol Insulin Aspart 3 - 6 units 12/08/24 21:00 12/11/24 21:33 Insulin Aspart (*Bkc) 100 Units/Ml SUB-Q 4 units HS HAJA Administration Protocol Insulin Glargine 20 units 12/05/24 09:00 12/11/24 08:40 Insulin Glargine (*Bkc) 100 Units/Ml SUB-Q 20 units DAILY HAJA Administration Levalbuterol HCl 1.25 mg 12/05/24 14:00 12/12/24 02:26 Levalbuterol Neb 1.25 Mg/3 Ml INHALATION 1.25 mg Q6HRT HAJA Administration Magnesium Hydroxide 30 ml 12/04/24 20:38 Magnesium Hydroxide Susp 30 Ml Udc PO HS PRN constipation Melatonin 5 mg 12/04/24 21:00 12/11/24 21:31 Melatonin 5 Mg Tablet PO 5 mg HS HAJA Administration Methylprednisolone Sodium Succinate 40 mg 12/11/24 14:00 12/12/24 06:24 Methylprednisolone Sod Succ 40 Mg Vial IV PUSH 40 mg Q8HR HAJA Administration Metoprolol Tartrate 12.5 mg 12/05/24 12:00 12/08/24 05:02 Metoprolol Tartrate 12.5 Mg Tablet PO Not Given Q6HR HAJA Pantoprazole Sodium 40 mg 12/05/24 21:10 12/11/24 21:31 Pantoprazole 40 Mg Tablet PO 40 mg Q12HR HAJA Administration Polyethylene Glycol 17 gm 12/04/24 20:38 Polyethylene Glycol 3350 17 Gm Powd.Pack PO BID PRN constipation Sodium Chloride 500 mg 12/09/24 13:40 12/11/24 16:33 Sodium Chloride 500 Mg Tablet PO 500 mg BID HAJA Administration Tamsulosin HCl 0.4 mg 12/04/24 21:00 12/11/24 21:31 Tamsulosin Hcl 0.4 Mg Capsule PO 0.4 mg HS HAJA Administration Radiology Results: ITS Impressions Chest CT 12/04/24 10:59 IMPRESSION: Severe bilateral interstitial lung disease, as detailed above. Volume loss within the right hemithorax. Mediastinal lymphadenopathy. Findings suggesting prior granulomatous disease. Decreased attenuation within the periphery of the lateral margin of the spleen, possibly related to bolus timing in the absence of a history of trauma for which clinical correlation is needed. Chest X-Ray 12/10/24 07:14 IMPRESSION: 1. Persistent lower lung predominant diffuse interstitial and airspace opacities. Disc related to chronic interstitial lung disease with and peripheral honeycombing on prior CT favoring usual interstitial pneumonia (UIP) pattern a more acute pneumonia, moderate pulmonary edema or some combination thereof. 2. Cardiomegaly. 2. Small right pleural effusion.. Labs Labs: Laboratory Results - last 24 hr 12/11/24 12/11/24 12/11/24 07:22 11:37 11:49 WBC RBC Hgb Hct MCV MCH MCHC RDW Plt Count MPV Sodium Potassium Chloride Carbon Dioxide Anion Gap BUN Creatinine Estim Creat Clear Calc Estimated GFR Glucose POC Capillary Glucose 163 H 234 H Calcium Magnesium Digoxin 2.3 H* 12/11/24 12/11/24 12/12/24 16:19 21:16 03:42 WBC 7.2 RBC 3.37 L Hgb 9.4 L Hct 28.1 L MCV 83.4 MCH 27.9 MCHC 33.5 RDW 14.8 H Plt Count 231 MPV 8.7 Sodium 125 L Potassium 4.5 Chloride 93 L Carbon Dioxide 31 H Anion Gap 1 L BUN 28 H Creatinine 0.99 Estim Creat Clear Calc 57 Estimated GFR > 60 Glucose 166 H POC Capillary Glucose 257 H 274 H Calcium 8.0 L Magnesium 2.2 Digoxin 12/12/24 07:20 WBC RBC Hgb Hct MCV MCH MCHC RDW Plt Count MPV Sodium Potassium Chloride Carbon Dioxide Anion Gap BUN Creatinine Estim Creat Clear Calc Estimated GFR Glucose POC Capillary Glucose 174 H Calcium Magnesium Digoxin Quality VTE Prophylaxis VTE prophylaxis: pharmacologic ordered Hospitalist MIPS Advance Care Plan I have confirmed that the patient's Advanced Care Plan is present, code status is documented, or surrogate decision maker is listed in patient medical record.: Yes Medication Reconciliation I have utilized all available resources to obtain, update and review the patients current medications (includes all prescriptions, OTC, herbals, cannabis, and nutritional supplements).: Yes
[2024-12-12 08:26] LABS: Procalcitonin 0.1 ng/mL
[2024-12-12 09:22] LABS: NT Pro B Type Natriuretic Pept 1700 pg/mL (19.9-100)
[2024-12-12] MEDS: INSULIN GLARGINE (*BKC) 100 UNITS/ML 20 UNITS SUB-Q (09:27)
[2024-12-12] MEDS: SODIUM CHLORIDE 500 MG TABLET PO ×2 (09:28→17:24)
[2024-12-12] MEDS: PANTOPRAZOLE 40 MG TABLET PO ×2 (09:28→20:42)
--- NOTE | 2024-12-12 09:33 | PM.PNPUL ---
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 He was on 2 L to 5 L in the last few days until he deteriorated yesterday, came to our ER. He is now requiring higher O2, high flow 75% and 45 L.min, sat is 96%. Patient was started on Solu-Medrol 250 mg IV q.6 hours on 12/0512/08/2024 at 6:00 a.m. started on Solu-Medrol 60 Q8 12/11/2024 at 1:00 p.m. started on Solu-Medrol 40 Q 8. 12/12/24: overall the patient tells me that his cough is better than when he arrived. His phlegm when he arrived was black and now it is clear. He has minimal rest shortness of breath. His dyspnea on exertion walking across the room to the chair. When I enter the room he was on Airvo 30 L and 50% FiO2 with saturations 96%. I changed him to 15 L nasal cannula and his saturations were 95%. I then decreased him to 10 L and his saturations were 94%. White blood cell count 7.2, creatinine 0.99, BNP 1700, procalcitonin 0.1. yesterday he was -1 L. Cumulative since admission he is -4.2 L. his weight today is 82.5 with an admission weight of 83.8. plan: I will refer CT scan of the chest to compare to 12/04 after 8 days of high-dose steroids. I will complete serologies for interstitial lung disease including TATIANA screen, Anca screen, MyoMarker screen, CPK and aldolase. Rheumatoid factor negative, anti CCP negative and hypersensitivity pneumonitis panel pending. (2) Acute and chronic respiratory failure: Code(s): J96.20 - Acute and chronic respiratory failure, unspecified whether with hypoxia or hypercapnia Status: Acute Assessment and Plan: Patient developed respiratory failure in October, required oxygen at discharge after being in [facility] in [place] for about a week. Returned to [facility], another pulmonary admission, then went to [facility], developed COVID with multifocal pneumonia in November 2024, has been on high flow most of this month. He was transferred to [facility] December 02, had steep increase in O2 requirement in the last 2 days. Family thinks that since he went on a Thursday night, he did not get meds, deteriorated, and came here by ambulance with increased O2 requirement. His admission CXR = severe interstitial fibrosis, possible pulmonary edema. the cardiac silhouette does not appear enlarged. He was on prednisone 20 mg at the time he was transferred to [facility] December 02. Due to his rapid deterioration, I started high dose steroids for an exacerbation of pulmonary fibrosis, 250 mg IV Q 6 hours and Lasix 40 mg IV Q 12 hours. This has been weaned, and today December 08, continued weaning with a lower dose to 40 mg IV Q 8 hours on 12/11/24. I stopped his LAsix 40 mg IV Q 12 hours yesterday with rising BUN/creat. Today his O2 need is lower, 6 L/min at rest. ABG on 12/06/2024 7.4 10/09/2031 on 35 L and 80% FiO2. There is no evidence of hypercarbic respiratory failure. 12/12/24: Currently have wean the patient down to 10 L nasal cannula. Goal saturation 90-94%. Wean as tolerated. Subjective Date/time seen: 12/12/24 09:33 Interval history: 12/05/2024; new consult; Zack Fofana is an 79-year-old man with ILD, no history of tobacco, no history of any lung disease until he developed shortness of breath in October 2024. He was at [facility] in [place] admitted October 19 through October 27 related to shortness of breath, family thinks he had atrial fibrillation and this was controlled with metoprolol. Went home for a short amount of time, maybe a day, returned to [facility] in [place] with hemoptysis, and was diagnosed with multifocal pneumonia secondary to COVID during this admission. He developed atrial fibrillation. He had a transesophageal cardioversion and was back in sinus rhythm. He was on Eliquis 2.5 mg b.i.d.. He was transferred to an LTAC for weaning oxygen, He was diagnosed with pulmonary fibrosis. He was re-admitted about October 28; November 03 he was in a regular room at [facility], then was transferred to November 04 to ICU [facility], deteriorated. He was on high-flow but not intubated. During this admission, he was diagnosed with COVID. November 09 he was sent to [facility] in [facility], November 09 until December 02, was stabilized, November 23 he was on 60 liters/minute and 75% FiO2. He was transferred to [facility] on December 02 for rehab. He was able to have his O2 decreased to 2 L/minute. Thursday am, he woke up, was disoriented, his heart rate was high 120, his O2 sat was low in the low 80s, but his son said that this seemed to be a little worse. He came to [place] [facility] ER with saturation 80% on 6-8 L. Chart from [facility] shows PMH including BPH, a fib, hyperlipidemia, multifocal pneumonia due to COVID. pulmonary hypertension, chronic respiratory failure, severe protein calorie malnutrition. At [facility], he was on 5 L with sat 96%. During the last week, heart rate was elevated at 120; family was not sure why. I did not see tachycardia documented in the notes from [facility]. His transfer medication list from [facility] showed that he was on prednisone 20 mg po daily, propafenone 225 mg q.8 hours for atrial fib., PMH : DM 8 years ago. No chronic medical problems otherwise per family. No surgeries. : 2 years in [place]. 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 He was never evaluated for asbestosis. He had no history of lung disease when he was working. He retired around age 63. He worked in [employer] for 2 or 3 years and this was 30 or 40 years ago. He had no lung issues until around [address] Elio Porter in [place]; had fluid on his lung in the nodule, the fluid resolved on its own so he did not need a thoracentesis, he went home, did not need pulmonary follow up. Tobacco: never smoker. Soc: He is to Padmini, they raised 4 children. He has not been at home over a few days since October due to his respiratory problems, and being in a hospital or LTAC/Rehab. Family hx: father at age 82, was a coal crusher operator. 12/06/2024; hospital follow up; He had PAF today, dope weigh operator saw him and started meds to control his rate, now on diltiazem drip 5 mg an hour in addition to metoprolol 12.5 mg Q 6 hours. He had wound care today for his bottom, is feeling a little better. His son Ethan is at the bedside, and Ethan's friend is visiting. The patient feels fine when he is sitting still, not exerting himself. He started high dose steroids last night Solu-medrol 250 mg IV Q 6 hours. He is on Lasix 40 mg IV Q 12 hours. Blood glucose is high, 253 to 412. Na+ is lower 122, serum CO2 is 21, lower, was 24 yesterday. He is not coughing. He has no joint pain. Appetite is increased with steroids. 12/08/24; hospital follow up; He is now on 6 L/min, and granddaughter at bedside. O2 need is lower, and he has had Lasix stopped, steroids decreased. I did not receive notes from [facility]. I spoke with them about causes for pulmonary fibrosis. He does not have a history of this before October 2024. He had COVID in November, and had worsening fibrosis afterwards. BUN 51, creat 1.75, glucose remains elevated 256 to 351. I plan to order work up for pulmonary fibrosis, TATIANA, hypersensitivity profile, anti CCP antibodies, rheumatoid factor. Was expecting to see all these results from prior admissions at [facility] and [facility] in [place]. He is now on solumedrol 60 mg IV Q 8 hours. With rising BUN and creat, I will decrease again, 40 mg IV Q 8 hours. He continues to have physical therapy. CXR 12/07 was exactly the same as admission, IMPRESSION: Stable radiographic evaluation of the chest demonstrating severe pulmonary fibrosis, as detailed above. Dec 09; He is saturating 97% on High flow, sat is higher than needed, so this can be weaned at rest. He drops saturation with exertion. He says that when his saturation drops, his therapist tells him to sit down, not exert himself. 12/12/24: overall the patient tells me that his cough is better than when he arrived. His phlegm when he arrived was black and now it is clear. He has minimal rest shortness of breath. His dyspnea on exertion walking across the room to the chair. When I enter the room he was on Airvo 30 L and 50% FiO2 with saturations 96%. I changed him to 15 L nasal cannula and his saturations were 95%. I then decreased him to 10 L and his saturations were 94%. White blood cell count 7.2, creatinine 0.99, BNP 1700, procalcitonin 0.1. yesterday he was -1 L. Cumulative since admission he is -4.2 L. his weight today is 82.5 with an admission weight of 83.8. DATA: 12/05/24: Echo summary Summary 1. Complete two-dimensional, color flow and Doppler transthoracic echocardiogram is performed. 2. There is normal biventricular size and systolic function. 3. The aortic valve is not well visualized however does not appear to have any hemodynamically significant aortic stenosis. 4. There are no significant valvular abnormalities. 5. There is insufficient tricuspid regurgitation to calculate the pulmonary artery systolic pressures. 6. There is a small size pericardial effusion. Left Ventricle The left ventricle is normal in size with hyperdynamic systolic function. The left ventricular ejection fraction is greater than 70%. Right Ventricle The right ventricle is normal in size and systolic function. Left Atria The left atrium is mildly dilated. Right Atria The right atrium is normal size. 12/04/24: CLINICAL INDICATION: Shortness of breath COMPARISON: None. TECHNIQUE: Multiple contiguous axial images of the chest was performed following the administration of intravenous contrast. This CT examination was performed utilizing dose reduction techniques. DLP: 346 mGy-cm FINDINGS/OBSERVATIONS: LUNG: Severe interstitial lung disease, with peripheral honeycombing, varicose bronchiectasis, bilateral cyst formation, and diffuse, primarily bibasilar, patchy, groundglass opacification. Volume loss within the right hemithorax is present. Pleural thickening is also noted, with multiple pleural plaques. Calcified granuloma within the left lung base, consistent with prior granulomatous disease. HEART: The heart is enlarged, without pericardial effusion. MEDIASTINUM: Multiple pathologically enlarged and morphologically suspicious lymph nodes are identified within the mediastinum. The largest is within the aortopulmonary window measuring 21 mm in greatest dimension. No significant lymphadenopathy detected within the bilateral axilla or within the soft tissues of the anterior chest wall. SOFT TISSUES OF THE CHEST: Unremarkable. BONES OF THE CHEST: No acute fracture. No lytic or blastic lesions are identified. UPPER ABDOMEN: Decreased attenuation is identified within the periphery of the spleen, possibly related to bolus timing in the absence of a history of trauma for which clinical correlation is needed. Fecal stasis within the colon. IMPRESSION: Severe bilateral interstitial lung disease, as detailed above. Volume loss within the right hemithorax. Mediastinal lymphadenopathy. Findings suggesting prior granulomatous disease. Decreased attenuation within the periphery of the lateral margin of the spleen, possibly related to bolus timing in the absence of a history of trauma for which clinical correlation is needed. Review of Systems Constitutional: Constitutional: Reports no additional constitutional complaints Eyes: Eyes: Reports no additional eye complaints ENT: Reports system reviewed and no additional complaints, except as documented Cardiovascular: Cardiovascular: Reports no additional cardiovascular complaints Respiratory: Respiratory: Reports no additional respiratory complaints Gastrointestinal: Gastrointestinal: Reports no additional gastrointestinal complaints Musculoskeletal: Musculoskeletal: Reports no additional musculoskeletal complaints Neurologic: Reports system reviewed and no additional complaints, except as documented Psychiatric: Psychiatric: Reports no additional psychiatric complaints Endocrine: Endocrine: Reports no additional endocrine complaints Hematologic/Lymphatic: Hematologic/Lymphatic: Reports no additional hematologic/lymphatic complaints Allergic/Immunologic: Allergic/Immunologic: Reports no additional allergic/immunologic complaints Exam Const: General: cooperative, healthy appearing and comfortable Orientation/consciousness: oriented to person, oriented to place and oriented to time [facility]: Head: normal to inspection Ears: hearing grossly normal bilaterally Eyes: General: appearance normal, both eyes and all related structures Neck: Neck: normal visual inspection Chest: Chest palpation & inspection: normal inspection of the chest Resp: Effort & Inspection: normal respiratory effort and able to speak in complete sentences Auscultation: crackles, no rales, no rhonchi, no wheezes and lung sounds not diminished Other: Dry crackles at both bases. No wheezing. Cardio: Jugular venous distension: no JVD GI: Inspection: normal to inspection GI Palp: No abdominal tenderness Skin: General skin exam: normal color Neuro: General: oriented to person, oriented to place and oriented to time Extrem: General: normal to inspection Psych: Appearance: grossly normal Objective Data Vital Signs Vital Signs: Vital Signs - 24 hr 12/11/24 10:00 12/11/24 12:00 12/11/24 12:00 Temperature 36.4 C Pulse Rate 91 97 Respiratory Rate 23 H Blood Pressure 137/64 Pulse Oximetry 94 96 Oxygen Delivery High Flow Therapy with Na Oxygen Flow Rate 30 Fraction of Inspired Oxygen 60 12/11/24 12:00 12/11/24 13:15 12/11/24 13:20 Temperature Pulse Rate 97 97 Respiratory Rate 18 Blood Pressure Pulse Oximetry 96 Oxygen Delivery Oxygen Flow Rate 30 Fraction of Inspired Oxygen 50 12/11/24 13:25 12/11/24 14:00 12/11/24 16:00 Temperature Pulse Rate 93 97 Respiratory Rate 18 Blood Pressure Pulse Oximetry 96 Oxygen Delivery High Flow Therapy with Na Oxygen Flow Rate 30 Fraction of Inspired Oxygen 60 12/11/24 16:00 12/11/24 16:00 12/11/24 18:00 Temperature 36.6 C Pulse Rate 96 76 96 Respiratory Rate 21 H Blood Pressure 135/69 Pulse Oximetry 98 Oxygen Delivery Oxygen Flow Rate Fraction of Inspired Oxygen 12/11/24 19:41 12/11/24 19:50 12/11/24 20:00 Temperature 36.6 C Pulse Rate 92 96 104 H Respiratory Rate 18 18 20 Blood Pressure 122/65 Pulse Oximetry 98 Oxygen Delivery Oxygen Flow Rate Fraction of Inspired Oxygen 12/11/24 20:00 12/11/24 20:00 12/11/24 21:16 Temperature Pulse Rate 85 Respiratory Rate Blood Pressure Pulse Oximetry 91 96 Oxygen Delivery High Flow Therapy with Na High Flow Therapy with Na Oxygen Flow Rate 30 30 Fraction of Inspired Oxygen 50 50 12/11/24 22:00 12/12/24 00:00 12/12/24 00:00 Temperature Pulse Rate 89 86 Respiratory Rate Blood Pressure Pulse Oximetry 98 Oxygen Delivery High Flow Therapy with Na Oxygen Flow Rate 30 Fraction of Inspired Oxygen 50 12/12/24 00:40 12/12/24 02:00 12/12/24 02:26 Temperature 36.3 C L Pulse Rate 101 H 80 95 Respiratory Rate 20 20 Blood Pressure 128/66 Pulse Oximetry 97 Oxygen Delivery Oxygen Flow Rate Fraction of Inspired Oxygen 12/12/24 02:31 12/12/24 03:45 12/12/24 04:00 Temperature Pulse Rate 97 86 Respiratory Rate 22 H Blood Pressure Pulse Oximetry 96 Oxygen Delivery High Flow Therapy with Na Oxygen Flow Rate 30 Fraction of Inspired Oxygen 50 12/12/24 04:58 12/12/24 06:00 12/12/24 07:20 Temperature 36.6 C 36.6 C Pulse Rate 98 93 93 Respiratory Rate 20 18 Blood Pressure 127/65 120/66 Pulse Oximetry 99 96 Oxygen Delivery Oxygen Flow Rate Fraction of Inspired Oxygen 12/12/24 08:23 12/12/24 08:25 12/12/24 08:27 Temperature Pulse Rate 96 100 98 Respiratory Rate 20 16 20 Blood Pressure Pulse Oximetry 95 Oxygen Delivery High Flow Therapy with Na Oxygen Flow Rate 30 Fraction of Inspired Oxygen 50 12/12/24 09:09 Temperature Pulse Rate Respiratory Rate Blood Pressure Pulse Oximetry 94 Oxygen Delivery High Flow Nasal Cannula Oxygen Flow Rate 10 Fraction of Inspired Oxygen Intake/Output Intake/Output: Intake & Output 12/09/24 12/10/24 12/11/24 12/12/24 23:59 23:59 23:59 23:59 Intake Total 1390 1300 1070 530 Output Total 1900 2050 2150 850 Balance -510 -750 -1080 -320 Meds/Results Medications: Active Medications Generic Name Dose Route Start Last Admin Trade Name Freq PRN Reason Stop Dose Admin Acetaminophen 650 mg 12/04/24 20:38 12/09/24 04:32 Acetaminophen 325 Mg Tablet PO 650 mg Q6H PRN Administration fever or pain 1-3 Atorvastatin Calcium 10 mg 12/04/24 21:00 12/11/24 21:31 Atorvastatin 10 Mg Tablet PO 10 mg HS HAJA Administration Benzonatate 100 mg 12/04/24 20:38 Benzonatate 100 Mg Capsule PO Q6H PRN cough Bisacodyl 10 mg 12/04/24 20:38 Bisacodyl 10 Mg Suppository RECTAL DAILY PRN constipation Dextrose 12.5 gm 12/04/24 20:40 Dextrose 50% 25 Gm/50 Ml Syringe IV PUSH PRN PRN Hypoglycemia Protocol Diltiazem HCl 120 mg 12/07/24 09:00 12/09/24 08:53 Diltiazem Hcl Cd 120 Mg Cap.24hr PO 120 mg QAM HAJA Administration Fluticasone Propionate 1 spray 12/04/24 20:38 Fluticasone Propionate 0.05% Na Spr 16 Gm Btl (*Bkc) NASAL DAILY PRN allergy symptoms Glucagon 1 mg 12/04/24 20:40 Glucagon For Inj 1 Mg Vial IM PRN PRN Hypoglycemia Protocol Glucose 15 gm 12/04/24 20:40 Glucose Oral Gel 15 Gm Of Glucse In 37.5 Gm Tube PO PRN PRN Hypoglycemia Protocol Dextrose 1,000 mls @ 100 mls/hr 12/04/24 20:40 Dextrose 5% 1,000 Ml IVPB PRN PRN Hypoglycemia Protocol Insulin Aspart 3 - 6 units 12/08/24 11:47 12/12/24 09:27 Insulin Aspart (*Bkc) 100 Units/Ml SUB-Q Not Given TIDWM HAJA Protocol Insulin Aspart 3 - 6 units 12/08/24 21:00 12/11/24 21:33 Insulin Aspart (*Bkc) 100 Units/Ml SUB-Q 4 units HS HAJA Administration Protocol Insulin Glargine 20 units 12/05/24 09:00 12/12/24 09:27 Insulin Glargine (*Bkc) 100 Units/Ml SUB-Q 20 units DAILY HAJA Administration Levalbuterol HCl 1.25 mg 12/05/24 14:00 12/12/24 08:21 Levalbuterol Neb 1.25 Mg/3 Ml INHALATION 1.25 mg Q6HRT HAJA Administration Magnesium Hydroxide 30 ml 12/04/24 20:38 Magnesium Hydroxide Susp 30 Ml Udc PO HS PRN constipation Melatonin 5 mg 12/04/24 21:00 12/11/24 21:31 Melatonin 5 Mg Tablet PO 5 mg HS HAJA Administration Methylprednisolone Sodium Succinate 40 mg 12/11/24 14:00 12/12/24 06:24 Methylprednisolone Sod Succ 40 Mg Vial IV PUSH 40 mg Q8HR HAJA Administration Metoprolol Tartrate 12.5 mg 12/05/24 12:00 12/08/24 05:02 Metoprolol Tartrate 12.5 Mg Tablet PO Not Given Q6HR HAJA Pantoprazole Sodium 40 mg 12/05/24 21:10 12/12/24 09:28 Pantoprazole 40 Mg Tablet PO 40 mg Q12HR HAJA Administration Polyethylene Glycol 17 gm 12/04/24 20:38 Polyethylene Glycol 3350 17 Gm Powd.Pack PO BID PRN constipation Sodium Chloride 500 mg 12/09/24 13:40 12/12/24 09:28 Sodium Chloride 500 Mg Tablet PO 500 mg BID HAJA Administration Tamsulosin HCl 0.4 mg 12/04/24 21:00 12/11/24 21:31 Tamsulosin Hcl 0.4 Mg Capsule PO 0.4 mg HS HAJA Administration Radiology Results: ITS Impressions Chest CT 12/04/24 10:59 IMPRESSION: Severe bilateral interstitial lung disease, as detailed above. Volume loss within the right hemithorax. Mediastinal lymphadenopathy. Findings suggesting prior granulomatous disease. Decreased attenuation within the periphery of the lateral margin of the spleen, possibly related to bolus timing in the absence of a history of trauma for which clinical correlation is needed. Chest X-Ray 12/10/24 07:14 IMPRESSION: 1. Persistent lower lung predominant diffuse interstitial and airspace opacities. Disc related to chronic interstitial lung disease with and peripheral honeycombing on prior CT favoring usual interstitial pneumonia (UIP) pattern a more acute pneumonia, moderate pulmonary edema or some combination thereof. 2. Cardiomegaly. 2. Small right pleural effusion.. Labs Labs: Laboratory Results - last 24 hr 12/11/24 12/11/24 12/11/24 11:37 11:49 16:19 WBC RBC Hgb Hct MCV MCH MCHC RDW Plt Count MPV Sodium Potassium Chloride Carbon Dioxide Anion Gap BUN Creatinine Estim Creat Clear Calc Estimated GFR Glucose POC Capillary Glucose 234 H 257 H Calcium Magnesium NT-Pro-B Natriuret Pep Procalcitonin Digoxin 2.3 H* 12/11/24 12/12/24 12/12/24 21:16 03:42 07:20 WBC 7.2 RBC 3.37 L Hgb 9.4 L Hct 28.1 L MCV 83.4 MCH 27.9 MCHC 33.5 RDW 14.8 H Plt Count 231 MPV 8.7 Sodium 125 L Potassium 4.5 Chloride 93 L Carbon Dioxide 31 H Anion Gap 1 L BUN 28 H Creatinine 0.99 Estim Creat Clear Calc 57 Estimated GFR > 60 Glucose 166 H POC Capillary Glucose 274 H 174 H Calcium 8.0 L Magnesium 2.2 NT-Pro-B Natriuret Pep 1700 H Procalcitonin 0.1 Digoxin
[2024-12-12 10:41] LABS: Creatine Kinase < 20 U/L (55-170)
[2024-12-12] MEDS: INSULIN ASPART (*BKC) 100 UNITS/ML SUB-Q ×3 (12:28→20:41)
[2024-12-12] MEDS: ATORVASTATIN 10 MG TABLET PO (20:42)
[2024-12-12] MEDS: TAMSULOSIN HCL 0.4 MG CAPSULE PO (20:42)
[2024-12-12] MEDS: MELATONIN 5 MG TABLET PO (20:42)
[2024-12-13] VITALS (25 sets, daily range): BP systolic 118–146; BP diastolic 54–88; PULSE 83–110; RESP 18–22; TEMP 36.5–36.8; O2SAT 90–99
[2024-12-13 04:37] LABS: Alanine Aminotransferase 34 U/L (6-50); Albumin Level 2.5 g/dL (3.5-5.1); Alkaline Phosphatase 77 U/L (38-126); Anion Gap 2 mmol/L (4-12); Aspartate Amino Transferase 25 U/L (17-59); Bilirubin,Total 0.5 mg/dL (0.2-1.3); Blood Urea Nitrogen 26 mg/dL (9-20); Calcium 7.9 mg/dL (8.4-10.2); Carbon Dioxide 30 mmol/L (22-30); Chloride 96 mmol/L (98-107); Estimated CRCL calculation 59 ml/min; Estimated Glomerular Filt Rate > 60; Glucose 135 mg/dL (65-110); Magnesium 2.2 mg/dL (1.6-2.3); Potassium 4.7 mmol/L (3.4-5.0); Sodium 128 mmol/L (137-145); Total Protein 5.2 g/dL (6.3-8.2)
[2024-12-13 04:39] LABS: Hematocrit 31.7 % (42.0-52.0); Hemoglobin 10.7 g/dL (14.0-18.0); Mean Corpuscular HGB Conc 33.8 g/dl (32-36); Mean Corpuscular Hemoglobin 28.6 pg (26-34); Mean Corpuscular Volume 84.8 fl (80-100); Platelet Count Result 228 k/mm3 (150-375); Red Blood Count 3.74 M/mm3 (4.6-6.20); White Blood Count 9.1 K/mm3 (4.5-10.0)
[2024-12-13 04:42] LABS: Digoxin 1.1 ng/mL (0.8-2.0)
[2024-12-13] MEDS: ACETAMINOPHEN 325 MG TABLET 650 MG PO (05:40)
[2024-12-13] MEDS: INSULIN GLARGINE (*BKC) 100 UNITS/ML 20 UNITS SUB-Q (08:36)
[2024-12-13] MEDS: SODIUM CHLORIDE 500 MG TABLET PO ×2 (08:37→16:42)
[2024-12-13] MEDS: PANTOPRAZOLE 40 MG TABLET PO ×2 (08:38→20:24)
--- NOTE | 2024-12-13 10:00 | P.PNPL_ITS ---
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 He was on 2 L to 5 L in the last few days until he deteriorated yesterday, came to our ER. He is now requiring higher O2, high flow 75% and 45 L.min, sat is 96%. Patient was started on Solu-Medrol 250 mg IV q.6 hours on 12/0512/08/2024 at 6:00 a.m. started on Solu-Medrol 60 Q8 12/11/2024 at 1:00 p.m. started on Solu-Medrol 40 Q 8. 12/12/24: overall the patient tells me that his cough is better than when he arrived. His phlegm when he arrived was black and now it is clear. He has min imal rest shortness of breath. His dyspnea on exertion walking across the room to the chair. When I enter the room he was on Airvo 30 L and 50% FiO2 with saturations 96%. I changed him to 15 L nasal cannula and his saturations were 95%. I then decreased him to 10 L and his saturations were 94%. White blood cell count 7.2, creatinine 0.99, BNP 1700, procalcitonin 0.1. yesterday he was -1 L. Cumulative since admission he is -4.2 L. his weight today is 82.5 with an admission weight of 83.8. plan: I will order CT scan of the chest to compare to 12/04 after 8 days of high-dose steroids. I will complete serologies for interstitial lung disease including TATIANA screen, Anca screen, MyoMarker screen, CPK and aldolase. Rheumatoid factor negative, anti CCP negative and hypersensitivity pneumonitis panel pending. Later in the day patient had a CT scan of the chest and compared to 12/04/2024 showed improved but persistent diffuse ground-glass infiltrates and improved but persistent patchy consolidative infiltrates. Persistent peripheral and lower lobe reticulations with areas of honeycombing. 12/13/24: patient tells me that he is breathing normal at rest but has dyspnea on exertion when walking to the chair. He is afebrile. Persistent cough with minimal phlegm. When I enter the room he was on 5 L nasal cannula saturations 98%. I decreased him to 2 L nasal cannula and his saturations were 94%. White blood cell count 9.1, creatinine 0.95. Yesterday he diuresed 1.4 L. Cumulative diuresis since admission 5.7 L. Weight today 80.4. Plan: I will change the patient to p.o. mg PO Q day. CPK less than 20. TATIANA, Anca, MyoMarker screen, Hypersensitivity pneumonitis and aldolase pending. (2) Acute and chronic respiratory failure: Code(s): J96.20 - Acute and chronic respiratory failure, unspecified whether with hypoxia or hypercapnia Status: Acute Assessment and Plan: Patient developed respiratory failure in October, required oxygen at discharge after being in [facility] for about a week. Returned to [facility], another pulmonary admission, then went to [facility], developed COVID with multifocal pneumonia in November 2024, has been on high flow most of this month. He was transferred to [facility] December 02, had steep increase in O2 requirement in the last 2 days. Family thinks that since he went on a Thursday night, he did not get meds, deteriorated, and came here by ambulance with increased O2 requirement. His admission CXR = severe interstitial fibrosis, possible pulmonary edema. the cardiac silhouette does not appear enlarged. He was on prednisone 20 mg at the time he was transferred to [facility] December 02. Due to his rapid deterioration, I started high dose steroids for an exacerbation of pulmonary fibrosis, 250 mg IV Q 6 hours and Lasix 40 mg IV Q 12 hours. This has been weaned, and today December 08, continued weaning with a lower dose to 40 mg IV Q 8 hours on 12/11/24. I stopped his LAsix 40 mg IV Q 12 hours yesterday with rising BUN/creat. Today his O2 need is lower, 6 L/min at rest. ABG on 12/06/2024 7.4 10/09/2031 on 35 L and 80% FiO2. There is no evidence of hypercarbic respiratory failure. 12/12/24: Currently have wean the patient down to 10 L nasal cannula. Goal saturation 90-94%. Wean as tolerated. 12/13/2024: Currently patient is on 2 L nasal cannula with saturations 94%. Plan: goal saturation 90-94% and will wean oxygen accordingly. Subjective Date/time seen: 12/13/24 10:00 Interval history: 12/05/2024; new consult; Zack Fofana is an 79-year-old man with ILD, no history of tobacco, no history of any lung disease until he developed shortness of breath in October 2024. He was at [facility] in [facility] admitted October 19 through October 27 related to shortness of breath, family thinks he had atrial fibrillation and this was controlled with metoprolol. Went home for a short amount of time, maybe a day, returned to [facility] in [place] with hemoptysis, and was diagnosed with multifocal pneumonia secondary to COVID during this admission. He developed atrial fibrillation. He had a transesophageal cardioversion and was back in sinus rhythm. He was on Eliquis 2.5 mg b.i.d.. He was transferred to an LTAC for weaning oxygen, He was diagnosed with pulmonary fibrosis. He was re-admitted about October 28; November 03 he was in a regular room at [facility], then was transferred to November [address] [facility], deteriorated. He was on high-flow but not intubated. During this admission, he was diagnosed with COVID. November 09 he was sent to [facility] in [facility], November 09 until December 02, was stabilized, November 23 he was on 60 liters/minute and 75% FiO2. He was transferred to [facility] on December 02 for rehab. He was able to have his O2 decreased to 2 L/minute. Thursday am, he woke up, was disoriented, his heart rate was high 120, his O2 sat was low in the low 80s, but his son said that this seemed to be a little worse. He came to [facility] with saturation 80% on 6-8 L. Chart from [facility] shows PMH including BPH, a fib, hyperlipidemia, multifocal pneumonia due to COVID. pulmonary hypertension, chronic respiratory failure, severe protein calorie malnutrition. At [facility], he was on 5 L with sat 96%. During the last week, heart rate was elevated at 120; family was not sure why. I did not see tachycardia documented in the notes from [facility]. His transfer medication list from [facility] showed that he was on prednisone 20 mg po daily, propafenone 225 mg q.8 hours for atrial fib., PMH : DM 8 years ago. No chronic medical problems otherwise per family. No surgeries. : 2 years in [place]. 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 He was never evaluated for asbestosis. He had no history of lung disease when he was working. He retired around age 63. 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 He had no lung issues until around [address] Elio Porter in [place]; had fluid on his lung in the nodule, the fluid resolved on its own so he did not need a thoracentesis, he went home, did not need pulmonary follow up. Tobacco: never smoker. Soc: He is to Padmini, they raised 4 children. He has not been at home over a few days since October due to his respiratory problems, and being in a hospital or LTAC/Rehab. Family hx: father at age 82, was a coal conveyor operator. 12/06/2024; hospital follow up; He had PAF today, [employer] saw him and started meds to control his rate, now on diltiazem drip 5 mg an hour in addition to metoprolol 12.5 mg Q 6 hours. He had wound care today for his bottom, is feeling a little better. His son Ethan is at the bedside, and Ethan's friend is visiting. The patient feels fine when he is sitting still, not exerting himself. He started high dose steroids last night Solu-medrol 250 mg IV Q 6 hours. He is on Lasix 40 mg IV Q 12 hours. Blood glucose is high, 253 to 412. Na+ is lower 122, serum CO2 is 21, lower, was 24 yesterday. He is not coughing. He has no joint pain. Appetite is increased with steroids. 12/08/24; hospital follow up; He is now on 6 L/min, and granddaughter at bedside. O2 need is lower, and he has had Lasix stopped, steroids decreased. I did not receive notes from [facility]. I spoke with them about causes for pulmonary fibrosis. He does not have a history of this before October 2024. He had COVID in November, and had worsening fibrosis afterwards. BUN 51, creat 1.75, glucose remains elevated 256 to 351. I plan to order work up for pulmonary fibrosis, TATIANA, hypersensitivity profile, anti CCP antibodies, rheumatoid factor. Was expecting to see all these results from prior admissions at [facility] and [facility] in [place]. He is now on solumedrol 60 mg IV Q 8 hours. With rising BUN and creat, I will decrease again, 40 mg IV Q 8 hours. He continues to have physical therapy. CXR 12/07 was exactly the same as admission, IMPRESSION: Stable radiographic evaluation of the chest demonstrating severe pulmonary fibrosis, as detailed above. Dec 09; He is saturating 97% on High flow, sat is higher than needed, so this can be weaned at rest. He drops saturation with exertion. He says that when his saturation drops, his therapist tells him to sit down, not exert himself. He needs to have O2 increased as highas needed to allow him to exercise. He is going to become more deconditioned by sitting in bed. 12/12/24: overall the patient tells me that his cough is better than when he arrived. His phlegm when he arrived was black and now it is clear. He has minimal rest shortness of breath. His dyspnea on exertion walking across the room to the chair. When I enter the room he was on Airvo 30 L and 50% FiO2 with saturations 96%. I changed him to 15 L nasal cannula and his saturations were 95%. I then decreased him to 10 L and his saturations were 94%. White blood cell count 7.2, creatinine 0.99, BNP 1700, procalcitonin 0.1. yesterday he was -1 L. Cumulative since admission he is -4.2 L. his weight today is 82.5 with an admission weight of 83.8. Later in the day patient had a CT scan of the chest and compared to 12/04/2024 showed improved but persistent diffuse ground-glass infiltrates and improved but persistent patchy consolidative infiltrates. Persistent peripheral and lower lobe reticulations with areas of honeycombing. 12/13/24: patient tells me that he is breathing normal at rest but has dyspnea on exertion when walking to the chair. He is afebrile. Persistent cough with minimal phlegm. When I enter the room he was on 5 L nasal cannula saturations 98%. I decreased him to 2 L nasal cannula and his saturations were 94%. White blood cell count 9.1, creatinine 0.95. Yesterday he diuresed 1.4 L. Cumulative diuresis since admission 5.7 L. Weight today 80.4. DATA: 12/12/24: EXAMINATION: CT diagnostic chest wo con INDICATION: Post covid ILD COMPARISON: 12/04/2024 FINDINGS: No significant change in some volume loss in both lungs with elevation the left hemidiaphragm. Again seen is peripheral and lower lung predominant irregular septal line thickening and groundglass opacities with peripheral honeycombing consistent with severe usual interstitial pneumonia (UIP) pattern chronic interstitial lung disease. The groundglass opacities as well as more patchy airspace consolidation at the time of the prior study appears improved likely representing interval improvement in previously superimposed pneumonia or pulmonary edema. Diffuse mild pleural thickening in the right hemithorax with a few unilateral right-sided calcified pleural plaques suggesting prior exudative effusion. Possible minimal right pleural effusion. Calcified left lower lobe nodule along with calcified left hilar lymph nodes and a few scattered hepatic and splenic calcifications, all consistent with old granulomatous disease. Cardiomegaly. Small amount of atherosclerotic coronary artery calcium and aortic valve calcific lesion. Unchanged minimal pericardial effusion. Thoracic aorta is normal in caliber. Enlargement of the central pulmonary arteries consistent with pulmonary arterial hypertension. Decrease in size of multiple mildly prominent but no normal-sized mediastinal lymph nodes which are likely reactive. Mild to moderate thoracic spondylosis. IMPRESSION: 1. Severe peripheral and lower lung predominant UIP pattern chronic interstitial lung disease with interval improvement in prior superimposed pulmonary edema and/or pneumonia. 2. Improvement in prior likely reactive mediastinal lymphadenopathy. 3. Unchanged pleural thickening with some scattered calcified pleural plaques in the right hemithorax, likely sequela of chronic exudative effusion with possible residual very small right pleural effusion. 4. Cardia megaly and enlargement of the central pulmonary arteries, the latter consistent with pulmonary arterial hypertension likely related to the chronic interstitial lung disease. on 12/05/24; Ethan shared images of his father's CXRs with the dates on his cell phone. I reviewed CXR 11/21/24 Brigette, not as severe as this CXR today. November 09, 2024 Brigette; not as abnormal as today, fibrosis visible, more aerated lungs in apices. * 12/05/2024 CXR : Cardiomediastinal silhouette is partially obscured. Diffuse interstitial thickening with a bilateral lower lobe, likely chronic. Small bilateral pleural effusions are also noted. Peripheral and bibasilar honeycombing is present. IMPRESSION: Re-demonstration of severe interstitial lung disease, as detailed above. document embedded image * 12/04/2024; chest CT: IMPRESSION: Severe bilateral interstitial lung disease, as detailed above. Volume loss within the right hemithorax. Mediastinal lymphadenopathy. Findings suggesting prior granulomatous disease. Decreased attenuation within the periphery of the lateral margin of the spleen, possibly related to bolus timing in the absence of a history of trauma for which clinical correlation is needed. * 12/04/2024 EKG; Sinus rhythm with incomplete right bundle-branch block, minimal ST depression. *12/05/2024, white blood cell count 5.2, hemoglobin 10.6, hematocrit 32%, platelets 150 k. Review of Systems Review of Systems: All systems reviewed & are unremarkable except as noted in HPI and below Constitutional: Constitutional: Reports no additional constitutional complaints Eyes: Eyes: Reports no additional eye complaints ENT: Reports system reviewed and no additional complaints, except as documented Cardiovascular: Cardiovascular: Reports no additional cardiovascular complaints Respiratory: Respiratory: Reports no additional respiratory complaints Gastrointestinal: Gastrointestinal: Reports no additional gastrointestinal complaints Musculoskeletal: Musculoskeletal: Reports no additional musculoskeletal complaints Neurologic: Reports system reviewed and no additional complaints, except as documented Psychiatric: Psychiatric: Reports no additional psychiatric complaints Endocrine: Endocrine: Reports no additional endocrine complaints Hematologic/Lymphatic: Hematologic/Lymphatic: Reports no additional he matologic/lymphatic complaints Allergic/Immunologic: Allergic/Immunologic: Reports no additional allergic/immunologic complaints Exam Const: General: cooperative, healthy appearing and comfortable Orientation/consciousness: oriented to person, oriented to place and oriented to time HENMT: Head: normal to inspection Ears: hearing grossly normal bilaterally Eyes: General: appearance normal, both eyes and all related structures Neck: Neck: normal visual inspection Chest: Chest palpation & inspection: normal inspection of the chest Resp: Effort & Inspection: normal respiratory effort and able to speak in complete sentences Auscultation: crackles, no rales, no rhonchi, no wheezes and lung sounds not diminished Other: Dry crackles at both bases. No wheezing. Cardio: Jugular venous distension: no JVD GI: Inspection: normal to inspection Skin: General skin exam: normal color Neuro: General: oriented to person, oriented to place and oriented to time Extrem: General: normal to inspection Psych: Appearance: grossly normal Objective Data Vital Signs Vital Signs: Vital Signs - 24 hr 12/12/24 11:39 12/12/24 12:00 12/12/24 12:00 Temperature 36.5 C Pulse Rate 84 102 H 100 Respiratory Rate 16 16 Blood Pressure 138/75 Pulse Oximetry 97 97 Oxygen Delivery High Flow Therapy with Na Oxygen Flow Rate 5 Fraction of Inspired Oxygen 12/12/24 14:00 12/12/24 14:51 12/12/24 14:55 Temperature Pulse Rate 100 96 Respiratory Rate 20 Blood Pressure Pulse Oximetry 95 Oxygen Delivery Oxygen Flow Rate 10 Fraction of Inspired Oxygen 12/12/24 16:00 12/12/24 16:00 12/12/24 16:00 Temperature 36.6 C Pulse Rate 96 89 89 Respiratory Rate 20 18 Blood Pressure 131/74 Pulse Oximetry 95 95 Oxygen Delivery High Flow Therapy with Na Oxygen Flow Rate 5 Fraction of Inspired Oxygen 12/12/24 18:00 12/12/24 20:00 12/12/24 20:06 Temperature 36.4 C L Pulse Rate 99 85 91 Respiratory Rate 20 Blood Pressure 120/74 Pulse Oximetry 96 Oxygen Delivery Oxygen Flow Rate Fraction of Inspired Oxygen 12/12/24 20:45 12/12/24 21:02 12/12/24 21:03 Temperature Pulse Rate 91 96 Respiratory Rate 20 20 Blood Pressure Pulse Oximetry 96 96 Oxygen Delivery High Flow Therapy with Na High Flow Nasal Cannula Oxygen Flow Rate 5 5 Fraction of Inspired Oxygen 12/12/24 21:09 12/12/24 22:00 12/12/24 23:35 Temperature 36.4 C Pulse Rate 97 82 98 Respiratory Rate 20 20 Blood Pressure 111/73 Pulse Oximetry 96 Oxygen Delivery Oxygen Flow Rate Fraction of Inspired Oxygen 12/12/24 23:45 12/13/24 00:00 12/13/24 02:00 Temperature Pulse Rate 92 92 97 Respiratory Rate 20 Blood Pressure Pulse Oximetry 94 Oxygen Delivery High Flow Nasal Cannula Oxygen Flow Rate 5 Fraction of Inspired Oxygen 12/13/24 02:47 12/13/24 02:54 12/13/24 03:29 Temperature 36.5 C Pulse Rate 100 92 95 Respiratory Rate 18 18 22 H Blood Pressure 123/57 L Pulse Oximetry 98 Oxygen Delivery Oxygen Flow Rate Fraction of Inspired Oxygen 12/13/24 04:00 12/13/24 04:00 12/13/24 06:00 Temperature Pulse Rate 95 93 96 Respiratory Rate 22 H Blood Pressure Pulse Oximetry 98 Oxygen Delivery High Flow Nasal Cannula Oxygen Flow Rate 5 Fraction of Inspired Oxygen 12/13/24 07:40 12/13/24 08:14 12/13/24 08:18 Temperature 36.6 C Pulse Rate 108 H 104 H 99 Respiratory Rate 22 H 18 18 Blood Pressure 123/54 L Pulse Oximetry 90 94 Oxygen Delivery High Flow Nasal Cannula Oxygen Flow Rate 2 Fraction of Inspired Oxygen 28 12/13/24 08:24 Temperature Pulse Rate 102 H Respiratory Rate 18 Blood Pressure Pulse Oximetry Oxygen Delivery Oxygen Flow Rate Fraction of Inspired Oxygen Intake/Output Intake/Output: Intake & Output 12/10/24 12/11/24 12/12/24 12/13/24 23:59 23:59 23:59 23:59 Intake Total 1300 1070 1370 726 Output Total 2050 [address] [facility] -750 -1080 -1430 26 Meds/Results Medications: Active Medications Generic Name Dose Route Start Last Admin Trade Name Freq PRN Reason Stop Dose Admin Acetaminophen 650 mg 12/04/24 20:38 12/13/24 05:40 Acetaminophen 325 Mg Tablet PO 650 mg Q6H PRN Administration fever or pain 1-3 Apixaban 5 mg 12/13/24 09:35 Apixaban 5 Mg Tablet PO Q12HR HAJA Atorvastatin Calcium 10 mg 12/04/24 21:00 12/12/24 20:42 Atorvastatin 10 Mg Tablet PO 10 mg HS HAJA Administration Benzonatate 100 mg 12/04/24 20:38 Benzonatate 100 Mg Capsule PO Q6H PRN cough Bisacodyl 10 mg 12/04/24 20:38 Bisacodyl 10 Mg Suppository RECTAL DAILY PRN constipation Dextrose 12.5 gm 12/04/24 20:40 Dextrose 50% 25 Gm/50 Ml Syringe IV PUSH PRN PRN Hypoglycemia Protocol Diltiazem HCl 120 mg 12/07/24 09:00 12/09/24 08:53 Diltiazem Hcl Cd 120 Mg Cap.24hr PO 120 mg QAM HAJA Administration Fluticasone Propionate 1 spray 12/04/24 20:38 Fluticasone Propionate 0.05% Na Spr 16 Gm Btl (*Bkc) NASAL DAILY PRN allergy symptoms Glucagon 1 mg 12/04/24 20:40 Glucagon For Inj 1 Mg Vial IM PRN PRN Hypoglycemia Protocol Glucose 15 gm 12/04/24 20:40 Glucose Oral Gel 15 Gm Of Glucse In 37.5 Gm Tube PO PRN PRN Hypoglycemia Protocol Dextrose 1,000 mls @ 100 mls/hr 12/04/24 20:40 Dextrose 5% 1,000 Ml IVPB PRN PRN Hypoglycemia Protocol Insulin Aspart 3 - 6 units 12/08/24 11:47 12/13/24 08:35 Insulin Aspart (*Bkc) 100 Units/Ml SUB-Q Not Given TIDWM HAJA Protocol Insulin Aspart 3 - 6 units 12/08/24 21:00 12/12/24 20:41 Insulin Aspart (*Bkc) 100 Units/Ml SUB-Q 3 units HS HAJA Administration Protocol Insulin Glargine 20 units 12/05/24 09:00 12/13/24 08:36 Insulin Glargine (*Bkc) 100 Units/Ml SUB-Q 20 units DAILY HAJA Administration Levalbuterol HCl 1.25 mg 12/05/24 14:00 12/13/24 08:13 Levalbuterol Neb 1.25 Mg/3 Ml INHALATION 1.25 mg Q6HRT HAJA Administration Magnesium Hydroxide 30 ml 12/04/24 20:38 Magnesium Hydroxide Susp 30 Ml Udc PO HS PRN constipation Melatonin 5 mg 12/04/24 21:00 12/12/24 20:42 Melatonin 5 Mg Tablet PO 5 mg HS HAJA Administration Methylprednisolone Sodium Succinate 40 mg 12/11/24 14:00 12/13/24 05:38 Methylprednisolone Sod Succ 40 Mg Vial IV PUSH 40 mg Q8HR HAJA Administration Metoprolol Tartrate 12.5 mg 12/05/24 12:00 12/08/24 05:02 Metoprolol Tartrate 12.5 Mg Tablet PO Not Given Q6HR HAJA Pantoprazole Sodium 40 mg 12/05/24 21:10 12/13/24 08:38 Pantoprazole 40 Mg Tablet PO 40 mg Q12HR HAJA Administration Polyethylene Glycol 17 gm 12/04/24 20:38 Polyethylene Glycol 3350 17 Gm Powd.Pack PO BID PRN constipation Sodium Chloride 500 mg 12/09/24 13:40 12/13/24 08:37 Sodium Chloride 500 Mg Tablet PO 500 mg BID HAJA Administration Tamsulosin HCl 0.4 mg 12/04/24 21:00 12/12/24 20:42 Tamsulosin Hcl 0.4 Mg Capsule PO 0.4 mg HS HAJA Administration Radiology Results: ITS Impressions Chest X-Ray 12/10/24 07:14 IMPRESSION: 1. Persistent lower lung predominant diffuse interstitial and airspace opacities. Disc related to chronic interstitial lung disease with and peripheral honeycombing on prior CT favoring usual interstitial pneumonia (UIP) pattern a more acute pneumonia, moderate pulmonary edema or some combination thereof. 2. Cardiomegaly. 2. Small right pleural effusion.. Chest CT 12/12/24 14:13 IMPRESSION: 1. Severe peripheral and lower lung predominant UIP pattern chronic interstitial lung disease with interval improvement in prior superimposed pulmonary edema and/or pneumonia. 2. Improvement in prior likely reactive mediastinal lymphadenopathy. 3. Unchanged pleural thickening with some scattered calcified pleural plaques in the right hemithorax, likely sequela of chronic exudative effusion with possible residual very small right pleural effusion. 4. Cardia megaly and enlargement of the central pulmonary arteries, the latter consistent with pulmonary arterial hypertension likely related to the chronic interstitial lung disease. Labs Labs: Laboratory Results - last 24 hr 12/12/24 12/12/24 12/12/24 10:19 11:37 16:18 WBC RBC Hgb Hct MCV MCH MCHC RDW Plt Count MPV Sodium Potassium Chloride Carbon Dioxide Anion Gap BUN Creatinine Estim Creat Clear Calc Estimated GFR Glucose POC Capillary Glucose 250 H 202 H Calcium Magnesium Total Bilirubin AST ALT Alkaline Phosphatase Total Creatine Kinase < 20 L Total Protein Albumin Digoxin Anti-Proteinase 3 FEIA c/o 1.9 Anti-Myeloperoxidase 12/12/24 12/13/24 12/13/24 20:37 03:37 07:01 WBC 9.1 RBC 3.74 L Hgb 10.7 L Hct 31.7 L MCV 84.8 MCH 28.6 MCHC 33.8 RDW 14.9 H Plt Count 228 MPV 8.9 Sodium 128 L Potassium 4.7 Chloride 96 L Carbon Dioxide 30 Anion Gap 2 L BUN 26 H Creatinine 0.95 Estim Creat Clear Calc 59 Estimated GFR > 60 Glucose 135 H POC Capillary Glucose 230 H 135 H Calcium 7.9 L Magnesium 2.2 Total Bilirubin 0.5 AST 25 ALT 34 Alkaline Phosphatase 77 Total Creatine Kinase Total Protein 5.2 L Albumin 2.5 L Digoxin 1.1 Anti-Proteinase 3 FEIA c/o 1.9 Cancelled Anti-Myeloperoxidase Cancelled
[2024-12-13] MEDS: APIXABAN 5 MG TABLET PO ×2 (10:21→20:24)
[2024-12-13] MEDS: INSULIN ASPART (*BKC) 100 UNITS/ML SUB-Q ×3 (12:33→20:23)
--- NOTE | 2024-12-13 16:13 | PM.IMPN ---
Progress Note: A&P Assessment and Plan (1) Hypotension: Code(s): I95.9 - Hypotension, unspecified Status: Acute (2) Dyspnea: Code(s): R06.00 - Dyspnea, unspecified Status: Acute (3) Hyponatremia: Code(s): E87.1 - Hypo-osmolality and hyponatremia Status: Acute (4) Impaired skin integrity: Code(s): R23.9 - Unspecified skin changes Status: Acute (5) Interstitial lung disease: Code(s): J84.9 - Interstitial pulmonary disease, unspecified Status: Chronic (6) Atrial fibrillation: Code(s): I48.91 - Unspecified atrial fibrillation Status: Chronic Plan ILD most likely 2/2 COVID infection on [address] Chest evaluated Now on prednisone 60mg po today per Pulm, s/p IV steroid TATIANA, ANCA, MyoMarker and aldolase Overnight oximetry Pulmonology following, discussed with Dr Miller who recommended overnight oximetry tonight Paroxysmal Afib Cardiology recommended holding Propafenone, digoxin, Metoprolol and Diltiazem continue Eliquis ECHO showed EF 70% s/p Digoxin immune CESAR cardiology following Hyponatremia Improving, Na 128 DVT prophylaxis on Eliquis Code status full code discussed with the patient again. Subjective Date/time seen: 12/13/24 16:13 Interval history: Comfortable at bedside NA 128 Discussed with Pulm and will do overnight oximetry Review of Systems Review of Systems: All systems reviewed & are unremarkable except as noted in HPI and below Exam Narrative: Patient is comfortable, NAD HEENT: eyes are clear and none icteric LUNGS: Bilateral fair air entry with harsh breath sounds HEART: RR S1S2 ABD: BS+, Soft and nontender Lower extremities: no edema SKIN: nonjaundiced Neuro: grossly intact. Const: General: comfortable and no acute distress Other: Elderly male pt lying in bed at this time in no acute distress. HENMT: Face/Nose/Sinus: Normal nares present Mouth: Yes moist mucous membranes Eyes: General: appearance normal, both eyes and all related structures Neck: Neck: supple and no JVD Lymphatic: lymphadenopathy not noted Chest: Other: Non-tender Resp: Effort & Inspection: normal respiratory effort Auscultation: rhonchi lower bilaterally (coarse in bases.) Cardio: Rate: tachycardic Rhythm: regular rhythm Heart sounds: no gallops, no murmurs and no rubs GI: Auscultation: normal bowel sounds Skin: General skin exam: rashes (Red, purpural rash in a band around the abdomen, back and the sides ) and wounds noted (coccyx stage 2) Rashes: rashes noted (Red, purpural rash in a band around the abdomen, back and the sides ) Wounds: wounds noted (coccyx stage 2) Other: Rash is in a location where a depends or an adult brief would sit on his skin. Pt acknowledges that he does wear a brief at the [facility]. Neuro: Speech: normal speech Motor exam (neuro): 5/5 motor strength present throughout Sensory Exam: normal sensation Other: No focal deficit. Extrem: General: no edema and no pedal edema Other: No swelling present. FROM of extremities without deficit. Psych: Mental Status: mental status grossly normal Affect: normal affect Objective Data Vital Signs Vital Signs: Vital Signs - 24 hr 12/12/24 18:00 12/12/24 20:00 12/12/24 20:06 Temperature 97.5 F L Pulse Rate 99 85 91 Respiratory Rate 20 Blood Pressure 120/74 Pulse Oximetry 96 Oxygen Delivery Oxygen Flow Rate Fraction of Inspired Oxygen 12/12/24 20:45 12/12/24 21:02 12/12/24 21:03 Temperature Pulse Rate 91 96 Respiratory Rate 20 20 Blood Pressure Pulse Oximetry 96 96 Oxygen Delivery High Flow Therapy with Na High Flow Nasal Cannula Oxygen Flow Rate 5 5 Fraction of Inspired Oxygen 12/12/24 21:09 12/12/24 22:00 12/12/24 23:35 Temperature 97.6 F Pulse Rate 97 82 98 Respiratory Rate 20 20 Blood Pressure 111/73 Pulse Oximetry 96 Oxygen Delivery Oxygen Flow Rate Fraction of Inspired Oxygen 12/12/24 23:45 12/13/24 00:00 12/13/24 02:00 Temperature Pulse Rate 92 92 97 Respiratory Rate 20 Blood Pressure Pulse Oximetry 94 Oxygen Delivery High Flow Nasal Cannula Oxygen Flow Rate 5 Fraction of Inspired Oxygen 12/13/24 02:47 12/13/24 02:54 12/13/24 03:29 Temperature 97.7 F Pulse Rate 100 92 95 Respiratory Rate 18 18 22 H Blood Pressure 123/57 L Pulse Oximetry 98 Oxygen Delivery Oxygen Flow Rate Fraction of Inspired Oxygen 12/13/24 04:00 12/13/24 04:00 12/13/24 06:00 Temperature Pulse Rate 95 93 96 Respiratory Rate 22 H Blood Pressure Pulse Oximetry 98 Oxygen Delivery High Flow Nasal Cannula Oxygen Flow Rate 5 Fraction of Inspired Oxygen 12/13/24 07:40 12/13/24 08:00 12/13/24 08:14 Temperature 97.8 F Pulse Rate 108 H 98 104 H Respiratory Rate 22 H 18 Blood Pressure 123/54 L Pulse Oximetry 90 Oxygen Delivery Oxygen Flow Rate Fraction of Inspired Oxygen 12/13/24 08:18 12/13/24 08:24 12/13/24 10:00 Temperature Pulse Rate 99 102 H 97 Respiratory Rate 18 18 Blood Pressure Pulse Oximetry 94 Oxygen Delivery High Flow Nasal Cannula Oxygen Flow Rate 2 Fraction of Inspired Oxygen 28 12/13/24 11:30 Temperature 98.0 F Pulse Rate 92 Respiratory Rate 22 H Blood Pressure 118/66 Pulse Oximetry 93 Oxygen Delivery Oxygen Flow Rate Fraction of Inspired Oxygen Intake/Output Intake/Output: Intake & Output 12/10/24 12/11/24 12/12/24 12/13/24 23:59 23:59 23:59 23:59 Intake Total 1300 1070 1370 1206 Output Total 2050 2150 2800 700 Balance -750 -1080 -1430 506 Meds/Results Medications: Active Medications Generic Name Dose Route Start Last Admin Trade Name Freq PRN Reason Stop Dose Admin Acetaminophen 650 mg 12/04/24 20:38 12/13/24 05:40 Acetaminophen 325 Mg Tablet PO 650 mg Q6H PRN Administration fever or pain 1-3 Apixaban 5 mg 12/13/24 09:35 12/13/24 10:21 Apixaban 5 Mg Tablet PO 5 mg Q12HR HAJA Administration Atorvastatin Calcium 10 mg 12/04/24 21:00 12/12/24 20:42 Atorvastatin 10 Mg Tablet PO 10 mg HS HAJA Administration Benzonatate 100 mg 12/04/24 20:38 Benzonatate 100 Mg Capsule PO Q6H PRN cough Bisacodyl 10 mg 12/04/24 20:38 Bisacodyl 10 Mg Suppository RECTAL DAILY PRN constipation Dextrose 12.5 gm 12/04/24 20:40 Dextrose 50% 25 Gm/50 Ml Syringe IV PUSH PRN PRN Hypoglycemia Protocol Diltiazem HCl 120 mg 12/07/24 09:00 12/09/24 08:53 Diltiazem Hcl Cd 120 Mg Cap.24hr PO 120 mg QAM HAJA Administration Fluticasone Propionate 1 spray 12/04/24 20:38 Fluticasone Propionate 0.05% Na Spr 16 Gm Btl (*Bkc) NASAL DAILY PRN allergy symptoms Glucagon 1 mg 12/04/24 20:40 Glucagon For Inj 1 Mg Vial IM PRN PRN Hypoglycemia Protocol Glucose 15 gm 12/04/24 20:40 Glucose Oral Gel 15 Gm Of Glucse In 37.5 Gm Tube PO PRN PRN Hypoglycemia Protocol Dextrose 1,000 mls @ 100 mls/hr 12/04/24 20:40 Dextrose 5% 1,000 Ml IVPB PRN PRN Hypoglycemia Protocol Insulin Aspart 3 - 6 units 12/08/24 11:47 12/13/24 12:33 Insulin Aspart (*Bkc) 100 Units/Ml SUB-Q 3 units TIDWM HAJA Administration Protocol Insulin Aspart 3 - 6 units 12/08/24 21:00 12/12/24 20:41 Insulin Aspart (*Bkc) 100 Units/Ml SUB-Q 3 units HS HAJA Administration Protocol Insulin Glargine 20 units 12/05/24 09:00 12/13/24 08:36 Insulin Glargine (*Bkc) 100 Units/Ml SUB-Q 20 units DAILY HAJA Administration Magnesium Hydroxide 30 ml 12/04/24 20:38 Magnesium Hydroxide Susp 30 Ml Udc PO HS PRN constipation Melatonin 5 mg 12/04/24 21:00 12/12/24 20:42 Melatonin 5 Mg Tablet PO 5 mg HS HAJA Administration Metoprolol Tartrate 12.5 mg 12/05/24 12:00 12/08/24 05:02 Metoprolol Tartrate 12.5 Mg Tablet PO Not Given Q6HR HAJA Pantoprazole Sodium 40 mg 12/05/24 21:10 12/13/24 08:38 Pantoprazole 40 Mg Tablet PO 40 mg Q12HR HAJA Administration Polyethylene Glycol 17 gm 12/04/24 20:38 Polyethylene Glycol 3350 17 Gm Powd.Pack PO BID PRN constipation Prednisone 60 mg 12/13/24 11:50 12/13/24 12:34 Prednisone 20 Mg Tablet PO 60 mg DAILY@0800 HAJA Administration Sodium Chloride 500 mg 12/09/24 13:40 12/13/24 08:37 Sodium Chloride 500 Mg Tablet PO 500 mg BID HAJA Administration Tamsulosin HCl 0.4 mg 12/04/24 21:00 12/12/24 20:42 Tamsulosin Hcl 0.4 Mg Capsule PO 0.4 mg HS HAJA Administration Radiology Results: ITS Impressions Chest X-Ray 12/10/24 07:14 IMPRESSION: 1. Persistent lower lung predominant diffuse interstitial and airspace opacities. Disc related to chronic interstitial lung disease with and peripheral honeycombing on prior CT favoring usual interstitial pneumonia (UIP) pattern a more acute pneumonia, moderate pulmonary edema or some combination thereof. 2. Cardiomegaly. 2. Small right pleural effusion.. Chest CT 12/12/24 14:13 IMPRESSION: 1. Severe peripheral and lower lung predominant UIP pattern chronic interstitial lung disease with interval improvement in prior superimposed pulmonary edema and/or pneumonia. 2. Improvement in prior likely reactive mediastinal lymphadenopathy. 3. Unchanged pleural thickening with some scattered calcified pleural plaques in the right hemithorax, likely sequela of chronic exudative effusion with possible residual very small right pleural effusion. 4. Cardia megaly and enlargement of the central pulmonary arteries, the latter consistent with pulmonary arterial hypertension likely related to the chronic interstitial lung disease. Labs Labs: Laboratory Results - last 24 hr 12/12/24 12/12/24 12/13/24 16:18 20:37 03:37 WBC 9.1 RBC 3.74 L Hgb 10.7 L Hct 31.7 L MCV 84.8 MCH 28.6 MCHC 33.8 RDW 14.9 H Plt Count 228 MPV 8.9 Sodium 128 L Potassium 4.7 Chloride 96 L Carbon Dioxide 30 Anion Gap 2 L BUN 26 H Creatinine 0.95 Estim Creat Clear Calc 59 Estimated GFR > 60 Glucose 135 H POC Capillary Glucose 202 H 230 H Calcium 7.9 L Magnesium 2.2 Total Bilirubin 0.5 AST 25 ALT 34 Alkaline Phosphatase 77 Total Protein 5.2 L Albumin 2.5 L Digoxin 1.1 Anti-Proteinase 3 FEIA c/o 1.9 Cancelled Anti-Myeloperoxidase Cancelled 12/13/24 12/13/24 07:01 11:02 WBC RBC Hgb Hct MCV MCH MCHC RDW Plt Count MPV Sodium Potassium Chloride Carbon Dioxide Anion Gap BUN Creatinine Estim Creat Clear Calc Estimated GFR Glucose POC Capillary Glucose 135 H 237 H Calcium Magnesium Total Bilirubin AST ALT Alkaline Phosphatase Total Protein Albumin Digoxin Anti-Proteinase 3 FEIA c/o 1.9 Anti-Myeloperoxidase Quality VTE Prophylaxis VTE prophylaxis: pharmacologic ordered
[2024-12-13] MEDS: ATORVASTATIN 10 MG TABLET PO (20:23)
[2024-12-13] MEDS: MELATONIN 5 MG TABLET PO (20:23)
[2024-12-13] MEDS: TAMSULOSIN HCL 0.4 MG CAPSULE PO (20:24)
[2024-12-14] VITALS (18 sets, daily range): BP systolic 113–133; BP diastolic 51–74; PULSE 51–102; RESP 18–22; TEMP 36.3–36.6; O2SAT 90–98
[2024-12-14 05:06] LABS: Hematocrit 30.8 % (42.0-52.0); Hemoglobin 10.1 g/dL (14.0-18.0); Mean Corpuscular HGB Conc 32.8 g/dl (32-36); Mean Corpuscular Hemoglobin 28.1 pg (26-34); Mean Corpuscular Volume 85.8 fl (80-100); Platelet Count Result 202 k/mm3 (150-375); Red Blood Count 3.59 M/mm3 (4.6-6.20); White Blood Count 9.4 K/mm3 (4.5-10.0)
[2024-12-14 05:34] LABS: Anion Gap 0 mmol/L (4-12); Blood Urea Nitrogen 28 mg/dL (9-20); Calcium 7.9 mg/dL (8.4-10.2); Carbon Dioxide 32 mmol/L (22-30); Chloride 93 mmol/L (98-107); Estimated CRCL calculation 60 ml/min; Estimated Glomerular Filt Rate > 60; Glucose 111 mg/dL (65-110); Magnesium 2.1 mg/dL (1.6-2.3); Potassium 4.5 mmol/L (3.4-5.0); Sodium 125 mmol/L (137-145)
--- NOTE | 2024-12-14 05:53 | PCRTNOTE ---
Apnea Link failed due to pt pulling out pulse ox and breaking at the pin.
[2024-12-14] MEDS: INSULIN GLARGINE (*BKC) 100 UNITS/ML 20 UNITS SUB-Q (08:23)
[2024-12-14] MEDS: PANTOPRAZOLE 40 MG TABLET PO ×2 (08:28→20:51)
[2024-12-14] MEDS: APIXABAN 5 MG TABLET PO ×2 (08:28→20:51)
[2024-12-14] MEDS: SODIUM CHLORIDE 500 MG TABLET PO ×3 (08:29→16:36)
--- NOTE | 2024-12-14 11:02 | PM.PNPUL ---
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 He was on 2 L to 5 L in the last few days until he deteriorated yesterday, came to our ER. He is now requiring higher O2, high flow 75% and 45 L.min, sat is 96%. Patient was started on Solu-Medrol 250 mg IV q.6 hours on 12/0512/08/2024 at 6:00 a.m. started on Solu-Medrol 60 Q8 12/11/2024 at 1:00 p.m. started on Solu-Medrol 40 Q 8. 12/12/24: overall the patient tells me that his cough is better than when he arrived. His phlegm when he arrived was black and now it is clear. He has minimal rest shortness of breath. His dyspnea on exertion walking across the room to the chair. When I enter the room he was on Airvo 30 L and 50% FiO2 with saturations 96%. I changed him to 15 L nasal cannula and his saturations were 95%. I then decreased him to 10 L and his saturations were 94%. White blood cell count 7.2, creatinine 0.99, BNP 1700, procalcitonin 0.1. yesterday he was -1 L. Cumulative since admission he is -4.2 L. his weight today is 82.5 with an admission weight of 83.8. plan: I will order CT scan of the chest to compare to 12/04 after 8 days of high-dose steroids. I will complete serologies for interstitial lung disease including TATIANA screen, Anca screen, MyoMarker screen, CPK and aldolase. Rheumatoid factor negative, anti CCP negative and hypersensitivity pneumonitis panel pending. Later in the day patient had a CT scan of the chest and compared to 12/04/2024 showed improved but persistent diffuse ground-glass infiltrates and improved but persistent patchy consolidative infiltrates. Persistent peripheral and lower lobe reticulations with areas of honeycombing. 12/13/24: patient tells me that he is breathing normal at rest but has dyspnea on exertion when walking to the chair. He is afebrile. Persistent cough with minimal phlegm. When I enter the room he was on 5 L nasal cannula saturations 98%. I decreased him to 2 L nasal cannula and his saturations were 94%. White blood cell count 9.1, creatinine 0.95. Yesterday he diuresed 1.4 L. Cumulative diuresis since admission 5.7 L. Weight today 80.4. Plan: I will change the patient to p.o. mg PO Q day. CPK less than 20. TATIANA, Anca, MyoMarker screen, Hypersensitivity pneumonitis and aldolase pending. 12/14/24: patient tells me he slept well he tells me he is breathing better today than he was on 10/19/2024 when he was admitted to [facility] in [place]. he has no rest shortness of breath but dyspnea on exertion with any activity. He is producing clear phlegm. He is afebrile. Last night he was on 2 L nasal cannula and said he slept well. This morning eating breakfast he had desats into the mid 80s and was placed on 5 L when I enter the room he was on 4 L with saturations 88% by 1 finger probe and 94 with another. I decreased him to 2 L and his saturations were 92%. White blood cell count 9.4, creatinine 0.93. Yesterday diuresed 654 mL with cumulative diuresed 6.2 L since admission. His weight today is 79.6. Chest x-ray today is interpreted by radiology as no change but my interpretation is mild improvement in his diffuse alveolar and interstitial infiltrates in all lung jerez. Plan: Continue prednisone 60 mg p.o. q.day, day 10 of steroids. Anca, MyoMarker screen, hypersensitivity pneumonitis, aldolase pending. TATIANA test canceled by the lab and I reordered. Patient's oxygen levels are now decreased and agree with plans for discharge to [facility] From a pulmonary perspective patient is ready for discharge on these Pulmonary Medicine: Prednisone 60 mg PO Q day through 12/18, then 50 mg PO Q day for 7 days, then 40 mg PO Q day for 7 days, then 30 mg PO Q day X 7 days, then prednisone 20 mg PO Q day with repeat chest Xray. Septra DS 1 Tab PO thursday, thursday and thursday Calcium 1000 mg PO Q day Vitamin D 800 IU Q day Oxygen at rest and with activity per Emily protocol Oxygen at night per Emily protocol Follow up in pulmonary clinic in 3-[address] Cabello, will follow with you. (2) Acute and chronic respiratory failure: Code(s): J96.20 - Acute and chronic respiratory failure, unspecified whether with hypoxia or hypercapnia Status: Acute Assessment and Plan: Patient developed respiratory failure in October, required oxygen at discharge after being in [facility] in [place] for about a week. Returned to [facility], another pulmonary admission, then went to [facility], developed COVID with multifocal pneumonia in November 2024, has been on high flow most of this month. He was transferred to [facility] December 02, had steep increase in O2 requirement in the last 2 days. Family thinks that since he went on a Thursday night, he did not get meds, deteriorated, and came here by ambulance with increased O2 requirement. His admission CXR = severe interstitial fibrosis, possible pulmonary edema. the cardiac silhouette does not appear enlarged. He was on prednisone 20 mg at the time he was transferred to [facility] December 02. Due to his rapid deterioration, I started high dose steroids for an exacerbation of pulmonary fibrosis, 250 mg IV Q 6 hours and Lasix 40 mg IV Q 12 hours. This has been weaned, and today December 08, continued weaning with a lower dose to 40 mg IV Q 8 hours on 12/11/24. I stopped his LAsix 40 mg IV Q 12 hours yesterday with rising BUN/creat. Today his O2 need is lower, 6 L/min at rest. ABG on 12/06/2024 7.4 10/09/2031 on 35 L and 80% FiO2. There is no evidence of hypercarbic respiratory failure. 12/12/24: Currently have wean the patient down to 10 L nasal cannula. Goal saturation 90-94%. Wean as tolerated. 12/13/2024: Currently patient is on 2 L nasal cannula with saturations 94%. Plan: goal saturation 90-94% and will wean oxygen accordingly. Overnight oximetry on 2 L ordered. 12/14/24: Overnight oximetry on 2 L did not record any data due to technical issues. Currently the patient is on 2 L with saturations 92%. Plan: Goal saturation 90 94% wean oxygen accordingly. I will reorder overnight oximetry on 2 L tonight. Subjective Date/time seen: 12/14/24 11:02 Interval history: 12/05/2024; new consult; Zack Fofana is an 79-year-old man with ILD, no history of tobacco, no history of any lung disease until he developed shortness of breath in October 2024. He was at [facility] in [facility] admitted October 19 through October 27 related to shortness of breath, family thinks he had atrial fibrillation and this was controlled with metoprolol. Went home for a short amount of time, maybe a day, returned to [facility] in [place] with hemoptysis, and was diagnosed with multifocal pneumonia secondary to COVID during this admission. He developed atrial fibrillation. He had a transesophageal cardioversion and was back in sinus rhythm. He was on Eliquis 2.5 mg b.i.d.. He was transferred to an LTAC for weaning oxygen, He was diagnosed with pulmonary fibrosis. He was re-admitted about October 28; November 03 he was in a regular room at [facility], then was transferred to November 04 to ICU [facility], deteriorated. He was on high-flow but not intubated. During this admission, he was diagnosed with COVID. November 09 he was sent to [place] in [facility], November 09 until December 02, was stabilized, November 23 he was on 60 liters/minute and 75% FiO2. He was transferred to [facility] on December 02 for rehab. He was able to have his O2 decreased to 2 L/minute. Thursday am, he woke up, was disoriented, his heart rate was high 120, his O2 sat was low in the low 80s, but his son said that this seemed to be a little worse. He came to [facility] ER with saturation 80% on 6-8 L. Chart from [facility] shows PMH including BPH, a fib, hyperlipidemia, multifocal pneumonia due to COVID. pulmonary hypertension, chronic respiratory failure, severe protein calorie malnutrition. At [place], he was on 5 L with sat 96%. During the last week, heart rate was elevated at 120; family was not sure why. I did not see tachycardia documented in the notes from [place]. His transfer medication list from [facility] showed that he was on prednisone 20 mg po daily, propafenone 225 mg q.8 hours for atrial fib., PMH : DM 8 years ago. No chronic medical problems otherwise per family. No surgeries. : 2 years in [place]. 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 He was never evaluated for asbestosis. He had no history of lung disease when he was working. He retired around age 63. 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 He had no lung issues until around [address] Elio Porter in [place]; had fluid on his lung in the nodule, the fluid resolved on its own so he did not need a thoracentesis, he went home, did not need pulmonary follow up. Tobacco: never smoker. Soc: He is to Padmini, they raised 4 children. He has not been at home over a few days since October due to his respiratory problems, and being in a hospital or LTAC/Rehab. Family hx: father at age 82, was a coal shooter. 12/06/2024; hospital follow up; He had PAF today, pharmacy technician saw him and started meds to control his rate, now on diltiazem drip 5 mg an hour in addition to metoprolol 12.5 mg Q 6 hours. He had wound care today for his bottom, is feeling a little better. His son Ethan is at the bedside, and Ethan's friend is visiting. The patient feels fine when he is sitting still, not exerting himself. He started high dose steroids last night Solu-medrol 250 mg IV Q 6 hours. He is on Lasix 40 mg IV Q 12 hours. Blood glucose is high, 253 to 412. Na+ is lower 122, serum CO2 is 21, lower, was 24 yesterday. He is not coughing. He has no joint pain. Appetite is increased with steroids. 12/08/24; hospital follow up; He is now on 6 L/min, and granddaughter at bedside. O2 need is lower, and he has had Lasix stopped, steroids decreased. I did not receive notes from [place]. I spoke with them about causes for pulmonary fibrosis. He does not have a history of this before October 2024. He had COVID in November, and had worsening fibrosis afterwards. BUN 51, creat 1.75, glucose remains elevated 256 to 351. I plan to order work up for pulmonary fibrosis, TATIANA, hypersensitivity profile, anti CCP antibodies, rheumatoid factor. Was expecting to see all these results from prior admissions at [place] and [facility] in [place]. He is now on solumedrol 60 mg IV Q 8 hours. With rising BUN and creat, I will decrease again, 40 mg IV Q 8 hours. He continues to have physical therapy. CXR 12/07 was exactly the same as admission, IMPRESSION: Stable radiographic evaluation of the chest demonstrating severe pulmonary fibrosis, as detailed above. Dec 09; He is saturating 97% on High flow, sat is higher than needed, so this can be weaned at rest. He drops saturation with exertion. He says that when his saturation drops, his therapist tells him to sit down, not exert himself. He needs to have O2 increased as highas needed to allow him to exercise. He is going to become more deconditioned by sitting in bed. 12/12/24: overall the patient tells me that his cough is better than when he arrived. His phlegm when he arrived was black and now it is clear. He has minimal rest shortness of breath. His dyspnea on exertion walking across the room to the chair. When I enter the room he was on Airvo 30 L and 50% FiO2 with saturations 96%. I changed him to 15 L nasal cannula and his saturations were 95%. I then decreased him to 10 L and his saturations were 94%. White blood cell count 7.2, creatinine 0.99, BNP 1700, procalcitonin 0.1. yesterday he was -1 L. Cumulative since admission he is -4.2 L. his weight today is 82.5 with an admission weight of 83.8. Later in the day patient had a CT scan of the chest and compared to 12/04/2024 showed improved but persistent diffuse ground-glass infiltrates and improved but persistent patchy consolidative infiltrates. Persistent peripheral and lower lobe reticulations with areas of honeycombing. 12/13/24: patient tells me that he is breathing normal at rest but has dyspnea on exertion when walking to the chair. He is afebrile. Persistent cough with minimal phlegm. When I enter the room he was on 5 L nasal cannula saturations 98%. I decreased him to 2 L nasal cannula and his saturations were 94%. White blood cell count 9.1, creatinine 0.95. Yesterday he diuresed 1.4 L. Cumulative diuresis since admission 5.7 L. Weight today 80.4. 12/14/24: patient tells me he slept well he tells me he is breathing better today than he was on 10/19/2024 when he was admitted to [facility] in [place]. he has no rest shortness of breath but dyspnea on exertion with any activity. He is producing clear phlegm. He is afebrile. Last night he was on 2 L nasal cannula and said he slept well. This morning eating breakfast he had desats into the mid 80s and was placed on 5 L when I enter the room he was on 4 L with saturations 88% by 1 finger probe and 94 with another. I decreased him to 2 L and his saturations were 92%. White blood cell count 9.4, creatinine 0.93. Yesterday diuresed 654 mL with cumulative diuresed 6.2 L since admission. His weight today is 79.6. Chest x-ray today is interpreted by radiology as no change but my interpretation is mild improvement in his diffuse alveolar and interstitial infiltrates in all lung jerez. DATA: 12/12/24: EXAMINATION: CT diagnostic chest wo con INDICATION: Post covid ILD COMPARISON: 12/04/2024 FINDINGS: No significant change in some volume loss in both lungs with elevation the left hemidiaphragm. Again seen is peripheral and lower lung predominant irregular septal line thickening and groundglass opacities with peripheral honeycombing consistent with severe usual interstitial pneumonia (UIP) pattern chronic interstitial lung disease. The groundglass opacities as well as more patchy airspace consolidation at the time of the prior study appears improved likely representing interval improvement in previously superimposed pneumonia or pulmonary edema. Diffuse mild pleural thickening in the right hemithorax with a few unilateral right-sided calcified pleural plaques suggesting prior exudative effusion. Possible minimal right pleural effusion. Calcified left lower lobe nodule along with calcified left hilar lymph nodes and a few scattered hepatic and splenic calcifications, all consistent with old granulomatous disease. Cardiomegaly. Small amount of atherosclerotic coronary artery calcium and aortic valve calcific lesion. Unchanged minimal pericardial effusion. Thoracic aorta is normal in caliber. Enlargement of the central pulmonary arteries consistent with pulmonary arterial hypertension. Decrease in size of multiple mildly prominent but no normal-sized mediastinal lymph nodes which are likely reactive. Mild to moderate thoracic spondylosis. IMPRESSION: 1. Severe peripheral and lower lung predominant UIP pattern chronic interstitial lung disease with interval improvement in prior superimposed pulmonary edema and/or pneumonia. 2. Improvement in prior likely reactive mediastinal lymphadenopathy. 3. Unchanged pleural thickening with some scattered calcified pleural plaques in the right hemithorax, likely sequela of chronic exudative effusion with possible residual very small right pleural effusion. 4. Cardia megaly and enlargement of the central pulmonary arteries, the latter consistent with pulmonary arterial hypertension likely related to the chronic interstitial lung disease. on 12/05/24; Ethan shared images of his father's CXRs with the dates on his cell phone. I reviewed CXR 11/21/24 Brigette, not as severe as this CXR today. November 09, 2024 Brigette; not as abnormal as today, fibrosis visible, more aerated lungs in apices. * 12/05/2024 CXR : Cardiomediastinal silhouette is partially obscured. Diffuse interstitial thickening with a bilateral lower lobe, likely chronic. Small bilateral pleural effusions are also noted. Peripheral and bibasilar honeycombing is present. IMPRESSION: Re-demonstration of severe interstitial lung disease, as detailed above. document embedded image * 12/04/2024; chest CT: IMPRESSION: Severe bilateral interstitial lung disease, as detailed above. Volume loss within the right hemithorax. Mediastinal lymphadenopathy. Findings suggesting prior granulomatous disease. Decreased attenuation within the periphery of the lateral margin of the spleen, possibly related to bolus timing in the absence of a history of trauma for which clinical correlation is needed. * 12/04/2024 EKG; Sinus rhythm with incomplete right bundle-branch block, minimal ST depression. *12/05/2024, white blood cell count 5.2, hemoglobin 10.6, hematocrit 32%, platelets 150 k. Review of Systems Review of Systems: All systems reviewed & are unremarkable except as noted in HPI and below Constitutional: Constitutional: Reports no additional constitutional complaints Eyes: Eyes: Reports no additional eye complaints ENT: Reports system reviewed and no additional complaints, except as documented Cardiovascular: Cardiovascular: Reports no additional cardiovascular complaints Respiratory: Respiratory: Reports no additional respiratory complaints Gastrointestinal: Gastrointestinal: Reports no additional gastrointestinal complaints Musculoskeletal: Musculoskeletal: Reports no additional musculoskeletal complaints Neurologic: Reports system reviewed and no additional complaints, except as documented Psychiatric: Psychiatric: Reports no additional psychiatric complaints Endocrine: Endocrine: Reports no additional endocrine complaints Hematologic/Lymphatic: Hematologic/Lymphatic: Reports no additional hematologic/lymphatic complaints Allergic/Immunologic: Allergic/Immunologic: Reports no additional allergic/immunologic complaints Exam Const: General: cooperative, healthy appearing and comfortable Orientation/consciousness: oriented to person, oriented to place and oriented to time HENMT: Head: normal to inspection Ears: hearing grossly normal bilaterally Eyes: General: appearance normal, both eyes and all related structures Neck: Neck: normal visual inspection Chest: Chest palpation & inspection: normal inspection of the chest Resp: Effort & Inspection: normal respiratory effort and able to speak in complete sentences Auscultation: crackles, no rales, no rhonchi, no wheezes and lung sounds not diminished Other: Dry crackles at both bases. No wheezing. Cardio: Jugular venous distension: no JVD GI: Inspection: normal to inspection Skin: General skin exam: normal color Neuro: General: oriented to person, oriented to place and oriented to time Extrem: General: normal to inspection Psych: Appearance: grossly normal Objective Data Vital Signs Vital Signs: Vital Signs - 24 hr 12/13/24 11:30 12/13/24 12:00 12/13/24 12:00 Temperature 36.7 C Pulse Rate 92 110 H Respiratory Rate 22 H Blood Pressure 118/66 Pulse Oximetry 93 92 Oxygen Delivery Nasal Cannula Oxygen Flow Rate 2 Fraction of Inspired Oxygen 12/13/24 14:00 12/13/24 16:00 12/13/24 16:00 Temperature 36.6 C Pulse Rate 102 H 96 91 Respiratory Rate 18 Blood Pressure 127/64 Pulse Oximetry 99 Oxygen Delivery Oxygen Flow Rate Fraction of Inspired Oxygen 12/13/24 16:00 12/13/24 18:00 12/13/24 19:50 Temperature 36.6 C Pulse Rate 92 97 Respiratory Rate 20 Blood Pressure 120/73 Pulse Oximetry 90 93 Oxygen Delivery Nasal Cannula Oxygen Flow Rate 2 Fraction of Inspired Oxygen 12/13/24 20:00 12/13/24 20:13 12/13/24 21:30 Temperature Pulse Rate 95 85 99 Respiratory Rate 20 20 Blood Pressure Pulse Oximetry 92 92 Oxygen Delivery Nasal Cannula Nasal Cannula Oxygen Flow Rate 2 2 Fraction of Inspired Oxygen 28 12/13/24 22:00 12/13/24 23:29 12/13/24 23:35 Temperature 36.8 C Pulse Rate 93 83 90 Respiratory Rate 20 20 Blood Pressure 146/88 H Pulse Oximetry 93 95 Oxygen Delivery Nasal Cannula Oxygen Flow Rate 2 Fraction of Inspired Oxygen 12/14/24 00:00 12/14/24 02:00 12/14/24 04:00 Temperature Pulse Rate 93 97 90 Respiratory Rate 21 H Blood Pressure Pulse Oximetry 95 Oxygen Delivery Nasal Cannula Oxygen Flow Rate 2 Fraction of Inspired Oxygen 12/14/24 04:00 12/14/24 04:21 12/14/24 06:00 Temperature 36.6 C Pulse Rate 79 90 86 Respiratory Rate 21 H Blood Pressure 133/61 Pulse Oximetry 95 Oxygen Delivery Oxygen Flow Rate Fraction of Inspired Oxygen 12/14/24 08:00 12/14/24 08:35 Temperature 36.5 C Pulse Rate 51 L 100 Respiratory Rate 22 H Blood Pressure 113/51 L Pulse Oximetry 96 Oxygen Delivery Oxygen Flow Rate Fraction of Inspired Oxygen Intake/Output Intake/Output: Intake & Output 12/11/24 12/12/24 12/13/24 12/14/24 23:59 23:59 23:59 23:59 Intake Total 1070 1370 2396 440 Output Total 2150 2800 3050 550 Balance -1080 -1430 -654 -110 Meds/Results Medications: Active Medications Generic Name Dose Route Start Last Admin Trade Name Freq PRN Reason Stop Dose Admin Acetaminophen 650 mg 12/04/24 20:38 12/13/24 05:40 Acetaminophen 325 Mg Tablet PO 650 mg Q6H PRN Administration fever or pain 1-3 Apixaban 5 mg 12/13/24 09:35 12/14/24 08:28 Apixaban 5 Mg Tablet PO 5 mg Q12HR HAJA Administration Atorvastatin Calcium 10 mg 12/04/24 21:00 12/13/24 20:23 Atorvastatin 10 Mg Tablet PO 10 mg HS HAJA Administration Benzonatate 100 mg 12/04/24 20:38 Benzonatate 100 Mg Capsule PO Q6H PRN cough Bisacodyl 10 mg 12/04/24 20:38 Bisacodyl 10 Mg Suppository RECTAL DAILY PRN constipation Dextrose 12.5 gm 12/04/24 20:40 Dextrose 50% 25 Gm/50 Ml Syringe IV PUSH PRN PRN Hypoglycemia Protocol Diltiazem HCl 120 mg 12/07/24 09:00 12/09/24 08:53 Diltiazem Hcl Cd 120 Mg Cap.24hr PO 120 mg QAM HAJA Administration Fluticasone Propionate 1 spray 12/04/24 20:38 Fluticasone Propionate 0.05% Na Spr 16 Gm Btl (*Bkc) NASAL DAILY PRN allergy symptoms Glucagon 1 mg 12/04/24 20:40 Glucagon For Inj 1 Mg Vial IM PRN PRN Hypoglycemia Protocol Glucose 15 gm 12/04/24 20:40 Glucose Oral Gel 15 Gm Of Glucse In 37.5 Gm Tube PO PRN PRN Hypoglycemia Protocol Dextrose 1,000 mls @ 100 mls/hr 12/04/24 20:40 Dextrose 5% 1,000 Ml IVPB PRN PRN Hypoglycemia Protocol Insulin Aspart 3 - 6 units 12/08/24 11:47 12/14/24 08:28 Insulin Aspart (*Bkc) 100 Units/Ml SUB-Q Not Given TIDWM HAJA Protocol Insulin Aspart 3 - 6 units 12/08/24 21:00 12/13/24 20:23 Insulin Aspart (*Bkc) 100 Units/Ml SUB-Q 5 units HS HAJA Administration Protocol Insulin Glargine 20 units 12/05/24 09:00 12/14/24 08:23 Insulin Glargine (*Bkc) 100 Units/Ml SUB-Q 20 units DAILY HAJA Administration Magnesium Hydroxide 30 ml 12/04/24 20:38 Magnesium Hydroxide Susp 30 Ml Udc PO HS PRN constipation Melatonin 5 mg 12/04/24 21:00 12/13/24 20:23 Melatonin 5 Mg Tablet PO 5 mg HS HAJA Administration Metoprolol Tartrate 12.5 mg 12/05/24 12:00 12/08/24 05:02 Metoprolol Tartrate 12.5 Mg Tablet PO Not Given Q6HR HAJA Pantoprazole Sodium 40 mg 12/05/24 21:10 12/14/24 08:28 Pantoprazole 40 Mg Tablet PO 40 mg Q12HR HAJA Administration Polyethylene Glycol 17 gm 12/04/24 20:38 Polyethylene Glycol 3350 17 Gm Powd.Pack PO BID PRN constipation Prednisone 60 mg 12/13/24 11:50 12/14/24 08:27 Prednisone 20 Mg Tablet PO 60 mg DAILY@0800 HAJA Administration Sodium Chloride 1 gm 12/14/24 17:00 Sodium Chloride 1 Gm Tablet PO BID HAJA Sodium Chloride 500 mg 12/14/24 13:00 Sodium Chloride 500 Mg Tablet PO TID HAJA Tamsulosin HCl 0.4 mg 12/04/24 21:00 12/13/24 20:24 Tamsulosin Hcl 0.4 Mg Capsule PO 0.4 mg HS HAJA Administration Radiology Results: ITS Impressions Chest CT 12/12/24 14:13 IMPRESSION: 1. Severe peripheral and lower lung predominant UIP pattern chronic interstitial lung disease with interval improvement in prior superimposed pulmonary edema and/or pneumonia. 2. Improvement in prior likely reactive mediastinal lymphadenopathy. 3. Unchanged pleural thickening with some scattered calcified pleural plaques in the right hemithorax, likely sequela of chronic exudative effusion with possible residual very small right pleural effusion. 4. Cardia megaly and enlargement of the central pulmonary arteries, the latter consistent with pulmonary arterial hypertension likely related to the chronic interstitial lung disease. Chest X-Ray 12/14/24 08:59 Impression: 1: Stable coarse chronic interstitial lung disease. Cannot exclude superimposed edema or pneumonia. Labs Labs: Laboratory Results - last 24 hr 12/08/24 12/13/24 12/13/24 16:13 11:02 16:35 WBC RBC Hgb Hct MCV MCH MCHC RDW Plt Count MPV Sodium Potassium Chloride Carbon Dioxide Anion Gap BUN Creatinine Estim Creat Clear Calc Estimated GFR Glucose POC Capillary Glucose 237 H 286 H Calcium Magnesium [place] Serum IgG Ab Negative T. sacchari IgG Ab Negative T. vulgaris IgG Ab Negative A. fumigatus IgG Ab Negative A. pullulans Aller IgG Negative M. faeni IgG Ab Negative 12/13/24 12/14/24 12/14/24 19:54 04:35 07:20 WBC 9.4 RBC 3.59 L Hgb 10.1 L Hct 30.8 L MCV 85.8 MCH 28.1 MCHC 32.8 RDW 15.4 H Plt Count 202 MPV 8.9 Sodium 125 L Potassium 4.5 Chloride 93 L Carbon Dioxide 32 H Anion Gap 0 L BUN 28 H Creatinine 0.93 Estim Creat Clear Calc 60 Estimated GFR > 60 Glucose 111 H POC Capillary Glucose 332 H 73 Calcium 7.9 L Magnesium 2.1 [place] Serum IgG Ab T. sacchari IgG Ab T. vulgaris IgG Ab A. fumigatus IgG Ab A. pullulans Aller IgG M. faeni IgG Ab
--- NOTE | 2024-12-14 14:54 | P.PNIM_ITS ---
Progress Note: A&P Assessment and Plan (1) Hypotension: Code(s): I95.9 - Hypotension, unspecified Status: Acute (2) Dyspnea: Code(s): R06.00 - Dyspnea, unspecified Status: Acute (3) Hyponatremia: Code(s): E87.1 - Hypo-osmolality and hyponatremia Status: Acute (4) Impaired skin integrity: Code(s): R23.9 - Unspecified skin changes Status: Acute (5) Interstitial lung disease: Code(s): J84.9 - Interstitial pulmonary disease, unspecified Status: Chronic (6) Atrial fibrillation: Code(s): I48.91 - Unspecified atrial fibrillation Status: Chronic Plan ILD most likely 2/2 COVID infection on [address] Chest evaluated Now on prednisone 60mg po today per Pulm, s/p IV steroid TATIANA, ANCA, MyoMarker and aldolase Overnight oximetry failed due to equipment malfunction will repeat tonight Pulmonology recomendations: Prednisone 60 mg PO Q day through 12/18, then 50 mg PO Q day for 7 days, then 40 mg PO Q day for 7 days, then 30 mg PO Q day X 7 days, then prednisone 20 mg PO Q day with repeat chest Xray. DS 1 Tab PO thursday, thursday and thursday Calcium 1000 mg PO Q day Vitamin D 800 IU Q day Oxygen at rest and with activity per Emily protocol Oxygen at night per Emily protocol Follow up in pulmonary clinic in 3-4 weeks. Paroxysmal Afib Cardiology recommended holding Propafenone, digoxin, Metoprolol and Diltiazem continue Eliquis ECHO showed EF 70% s/p Digoxin immune CESAR cardiology following Hyponatremia Improving, Na 125 on salt tablets DVT prophylaxis on Eliquis Code status full code discussed with the patient again. Awaiting improvement in Na for discharge Subjective Date/time seen: 12/14/24 14:54 Interval history: Comfortable at bedside Review of Systems Review of Systems: All systems reviewed & are unremarkable except as noted in HPI and below Exam Narrative: Patient is comfortable, NAD HEENT: eyes are clear and none icteric LUNGS: Bilateral fair air entry with harsh breath sounds HEART: RR S1S2 ABD: BS+, Soft and nontender Lower extremities: no edema SKIN: nonjaundiced Neuro: grossly intact. Const: General: comfortable and no acute distress Other: Elderly male pt lying in bed at this time in no acute distress. HENMT: Face/Nose/Sinus: Normal nares present Mouth: Yes moist mucous membranes Eyes: General: appearance normal, both eyes and all related structures Neck: Neck: supple and no JVD Lymphatic: lymphadenopathy not noted Chest: Other: Non-tender Resp: Effort & Inspection: normal respiratory effort Auscultation: rhonchi lower bilaterally (coarse in bases.) Cardio: Rate: tachycardic Rhythm: regular rhythm Heart sounds: no gallops, no murmurs and no rubs GI: Auscultation: normal bowel sounds Skin: General skin exam: rashes (Red, purpural rash in a band around the abdomen, back and the sides ) and wounds noted (coccyx stage 2) Rashes: rashes noted (Red, purpural rash in a band around the abdomen, back and the sides ) Wounds: wounds noted (coccyx stage 2) Other: Rash is in a location where a depends or an adult brief would sit on his skin. Pt acknowledges that he does wear a brief at the longterm. Neuro: Speech: normal speech Motor exam (neuro): 5/5 motor strength present throughout Sensory Exam: normal sensation Other: No focal deficit. Extrem: General: no edema and no pedal edema Other: No swelling present. FROM of extremities without deficit. Psych: Mental Status: mental status grossly normal Affect: normal affect Objective Data Vital Signs Vital Signs: Vital Signs - 24 hr 12/13/24 16:00 12/13/24 16:00 12/13/24 16:00 Temperature 98 F Pulse Rate 96 91 Respiratory Rate 18 Blood Pressure 127/64 Pulse Oximetry 99 90 Oxygen Delivery Nasal Cannula Oxygen Flow Rate 2 Fraction of Inspired Oxygen 12/13/24 18:00 12/13/24 19:50 12/13/24 20:00 Temperature 97.9 F Pulse Rate 92 97 95 Respiratory Rate 20 Blood Pressure 120/73 Pulse Oximetry 93 Oxygen Delivery Oxygen Flow Rate Fraction of Inspired Oxygen 12/13/24 20:13 12/13/24 21:30 12/13/24 22:00 Temperature Pulse Rate 85 99 93 Respiratory Rate 20 20 Blood Pressure Pulse Oximetry 92 92 Oxygen Delivery Nasal Cannula Nasal Cannula Oxygen Flow Rate 2 2 Fraction of Inspired Oxygen 28 12/13/24 23:29 12/13/24 23:35 12/14/24 00:00 Temperature 98.3 F Pulse Rate 83 90 93 Respiratory Rate 20 20 Blood Pressure 146/88 H Pulse Oximetry 93 95 Oxygen Delivery Nasal Cannula Oxygen Flow Rate 2 Fraction of Inspired Oxygen 12/14/24 02:00 12/14/24 04:00 12/14/24 04:00 Temperature Pulse Rate 97 90 79 Respiratory Rate 21 H Blood Pressure Pulse Oximetry 95 Oxygen Delivery Nasal Cannula Oxygen Flow Rate 2 Fraction of Inspired Oxygen 12/14/24 04:21 12/14/24 06:00 12/14/24 08:00 Temperature 97.8 F 97.7 F Pulse Rate 90 86 51 L Respiratory Rate 21 H 22 H Blood Pressure 133/61 113/51 L Pulse Oximetry 95 96 Oxygen Delivery Oxygen Flow Rate Fraction of Inspired Oxygen 12/14/24 08:35 12/14/24 10:00 12/14/24 12:00 Temperature 98 F Pulse Rate 100 95 102 H Respiratory Rate 22 H Blood Pressure 122/55 L Pulse Oximetry 93 Oxygen Delivery Oxygen Flow Rate Fraction of Inspired Oxygen Intake/Output Intake/Output: Intake & Output 12/11/24 12/12/24 12/13/24 12/14/24 23:59 23:59 23:59 23:59 Intake Total 1070 1370 2396 440 Output Total 2150 2800 3050 550 Balance -1080 -1430 -654 -110 Meds/Results Medications: Active Medications Generic Name Dose Route Start Last Admin Trade Name Freq PRN Reason Stop Dose Admin Acetaminophen 650 mg 12/04/24 20:38 12/13/24 05:40 Acetaminophen 325 Mg Tablet PO 650 mg Q6H PRN Administration fever or pain 1-3 Apixaban 5 mg 12/13/24 09:35 12/14/24 08:28 Apixaban 5 Mg Tablet PO 5 mg Q12HR HAJA Administration Atorvastatin Calcium 10 mg 12/04/24 21:00 12/13/24 20:23 Atorvastatin 10 Mg Tablet PO 10 mg HS HAJA Administration Benzonatate 100 mg 12/04/24 20:38 Benzonatate 100 Mg Capsule PO Q6H PRN cough Bisacodyl 10 mg 12/04/24 20:38 Bisacodyl 10 Mg Suppository RECTAL DAILY PRN constipation Dextrose 12.5 gm 12/04/24 20:40 Dextrose 50% 25 Gm/50 Ml Syringe IV PUSH PRN PRN Hypoglycemia Protocol Diltiazem HCl 120 mg 12/07/24 09:00 12/09/24 08:53 Diltiazem Hcl Cd 120 Mg Cap.24hr PO 120 mg QAM HAJA Administration Fluticasone Propionate 1 spray 12/04/24 20:38 Fluticasone Propionate 0.05% Na Spr 16 Gm Btl (*Bkc) NASAL DAILY PRN allergy symptoms Glucagon 1 mg 12/04/24 20:40 Glucagon For Inj 1 Mg Vial IM PRN PRN Hypoglycemia Protocol Glucose 15 gm 12/04/24 20:40 Glucose Oral Gel 15 Gm Of Glucse In 37.5 Gm Tube PO PRN PRN Hypoglycemia Protocol Dextrose 1,000 mls @ 100 mls/hr 12/04/24 20:40 Dextrose 5% 1,000 Ml IVPB PRN PRN Hypoglycemia Protocol Insulin Aspart 3 - 6 units 12/08/24 11:47 12/14/24 11:59 Insulin Aspart (*Bkc) 100 Units/Ml SUB-Q Not Given TIDWM HAJA Protocol Insulin Aspart 3 - 6 units 12/08/24 21:00 12/13/24 20:23 Insulin Aspart (*Bkc) 100 Units/Ml SUB-Q 5 units HS HAJA Administration Protocol Insulin Glargine 20 units 12/05/24 09:00 12/14/24 08:23 Insulin Glargine (*Bkc) 100 Units/Ml SUB-Q 20 units DAILY HAJA Administration Magnesium Hydroxide 30 ml 12/04/24 20:38 Magnesium Hydroxide Susp 30 Ml Udc PO HS PRN constipation Melatonin 5 mg 12/04/24 21:00 12/13/24 20:23 Melatonin 5 Mg Tablet PO 5 mg HS HAJA Administration Metoprolol Tartrate 12.5 mg 12/05/24 12:00 12/08/24 05:02 Metoprolol Tartrate 12.5 Mg Tablet PO Not Given Q6HR HAJA Pantoprazole Sodium 40 mg 12/05/24 21:10 12/14/24 08:28 Pantoprazole 40 Mg Tablet PO 40 mg Q12HR HAJA Administration Polyethylene Glycol 17 gm 12/04/24 20:38 Polyethylene Glycol 3350 17 Gm Powd.Pack PO BID PRN constipation Prednisone 60 mg 12/13/24 11:50 12/14/24 08:27 Prednisone 20 Mg Tablet PO 60 mg DAILY@0800 HAJA Administration Sodium Chloride 500 mg 12/14/24 13:00 12/14/24 14:11 Sodium Chloride 500 Mg Tablet PO 500 mg TID HAJA Administration Tamsulosin HCl 0.4 mg 12/04/24 21:00 12/13/24 20:24 Tamsulosin Hcl 0.4 Mg Capsule PO 0.4 mg HS HAJA Administration Radiology Results: ITS Impressions Chest CT 12/12/24 14:13 IMPRESSION: 1. Severe peripheral and lower lung predominant UIP pattern chronic interstitial lung disease with interval improvement in prior superimposed pulmonary edema and/or pneumonia. 2. Improvement in prior likely reactive mediastinal lymphadenopathy. 3. Unchanged pleural thickening with some scattered calcified pleural plaques in the right hemithorax, likely sequela of chronic exudative effusion with possible residual very small right pleural effusion. 4. Cardia megaly and enlargement of the central pulmonary arteries, the latter consistent with pulmonary arterial hypertension likely related to the chronic interstitial lung disease. Chest X-Ray 12/14/24 08:59 Impression: 1: Stable coarse chronic interstitial lung disease. Cannot exclude superimposed edema or pneumonia. Labs Labs: Laboratory Results - last 24 hr 12/08/24 12/13/24 12/13/24 16:13 16:35 19:54 WBC RBC Hgb Hct MCV MCH MCHC RDW Plt Count MPV Sodium Potassium Chloride Carbon Dioxide Anion Gap BUN Creatinine Estim Creat Clear Calc Estimated GFR Glucose POC Capillary Glucose 286 H 332 H Calcium Magnesium [place] Serum IgG Ab Negative T. sacchari IgG Ab Negative T. vulgaris IgG Ab Negative A. fumigatus IgG Ab Negative A. pullulans Aller IgG Negative M. faeni IgG Ab Negative 12/14/24 12/14/24 12/14/24 04:35 07:20 11:32 WBC 9.4 RBC 3.59 L Hgb 10.1 L Hct 30.8 L MCV 85.8 MCH 28.1 MCHC 32.8 RDW 15.4 H Plt Count 202 MPV 8.9 Sodium 125 L Potassium 4.5 Chloride 93 L Carbon Dioxide 32 H Anion Gap 0 L BUN 28 H Creatinine 0.93 Estim Creat Clear Calc 60 Estimated GFR > 60 Glucose 111 H POC Capillary Glucose 73 143 H Calcium 7.9 L Magnesium 2.1 [place] Serum IgG Ab T. sacchari IgG Ab T. vulgaris IgG Ab A. fumigatus IgG Ab A. pullulans Aller IgG M. faeni IgG Ab Quality VTE Prophylaxis VTE prophylaxis: pharmacologic ordered
[2024-12-14] MEDS: INSULIN ASPART (*BKC) 100 UNITS/ML SUB-Q ×2 (16:35→20:51)
[2024-12-14] MEDS: MELATONIN 5 MG TABLET PO (20:51)
[2024-12-14] MEDS: ATORVASTATIN 10 MG TABLET PO (20:51)
[2024-12-14] MEDS: TAMSULOSIN HCL 0.4 MG CAPSULE PO (20:51)
[2024-12-15] VITALS (19 sets, daily range): BP systolic 97–138; BP diastolic 48–82; PULSE 78–110; RESP 20–22; TEMP 36.5–36.9; O2SAT 91–100
[2024-12-15 04:13] LABS: Hematocrit 29.9 % (42.0-52.0); Hemoglobin 10.2 g/dL (14.0-18.0); Immature Granulocyte Percent A 8.0 % (0-0.5); Lymphocytes Absolute Auto 2.31 K/mm3 (0.9-3.2); Mean Corpuscular HGB Conc 34.1 g/dl (32-36); Mean Corpuscular Hemoglobin 28.6 pg (26-34); Mean Corpuscular Volume 83.8 fl (80-100); Nucleated Red Blood Cells Absolute Auto 0.040 K/mm3 (0.0-0.012); Nucleated Red Blood Cells Perc 0.4 % (0.0-0.2); Platelet Count Result 173 k/mm3 (150-375); Red Blood Count 3.57 M/mm3 (4.6-6.20); White Blood Count 9.0 K/mm3 (4.5-10.0)
[2024-12-15 04:40] LABS: Alanine Aminotransferase 29 U/L (6-50); Albumin Level 2.3 g/dL (3.5-5.1); Alkaline Phosphatase 71 U/L (38-126); Anion Gap -3 mmol/L (4-12); Aspartate Amino Transferase 22 U/L (17-59); Bilirubin,Total 0.6 mg/dL (0.2-1.3); Blood Urea Nitrogen 29 mg/dL (9-20); Calcium 7.6 mg/dL (8.4-10.2); Carbon Dioxide 31 mmol/L (22-30); Chloride 96 mmol/L (98-107); Estimated CRCL calculation 57 ml/min; Estimated Glomerular Filt Rate > 60; Glucose 80 mg/dL (65-110); Magnesium 2.0 mg/dL (1.6-2.3); Potassium 4.3 mmol/L (3.4-5.0); Sodium 124 mmol/L (137-145); Total Protein 4.9 g/dL (6.3-8.2)
[2024-12-15 07:42] LABS: NT Pro B Type Natriuretic Pept 1340 pg/mL (19.9-100)
[2024-12-15] MEDS: ACETAMINOPHEN 325 MG TABLET 650 MG PO (09:45)
[2024-12-15] MEDS: SODIUM CHLORIDE 500 MG TABLET PO ×3 (09:46→18:02)
[2024-12-15] MEDS: FUROSEMIDE INJ 40 MG/4 ML VIAL 20 MG IV PUSH (09:46)
[2024-12-15] MEDS: PANTOPRAZOLE 40 MG TABLET PO ×2 (09:46→20:53)
[2024-12-15] MEDS: APIXABAN 5 MG TABLET PO ×2 (09:46→20:53)
[2024-12-15] MEDS: INSULIN GLARGINE (*BKC) 100 UNITS/ML 20 UNITS SUB-Q (09:55)
--- NOTE | 2024-12-15 10:20 | P.PNPL_ITS ---
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 He was on 2 L to 5 L in the last few days until he deteriorated yesterday, came to our ER. He is now requiring higher O2, high flow 75% and 45 L.min, sat is 96%. 12/05/24 to 12/07/24 Solu-Medrol 250 mg IV q.6 12/08/2024 to 12/10/24 Solu-Medrol 60 Q8 12/11/2024 to 12/12/24 Solu-Medrol 40 Q 8 12/13/24 prednisone 60 mg PO. 12/12/24: overall the patient tells me that his cough is better than when he arrived. His phlegm when he arrived was black and now it is clear. He has minimal rest shortness of breath. His dyspnea on exertion walking across the room to the chair. When I enter the room he was on Airvo 30 L and 50% FiO2 with saturations 96%. I changed him to 15 L nasal cannula and his saturations were 95%. I then decreased him to 10 L and his saturations were 94%. White blood cell count 7.2, creatinine 0.99, BNP 1700, procalcitonin 0.1. yesterday he was -1 L. Cumulative since admission he is -4.2 L. his weight today is 82.5 with an admission weight of 83.8. plan: I will order CT scan of the chest to compare to 12/04 after 8 days of high-dose steroids. I will complete serologies for interstitial lung disease including TATIANA screen, Anca screen, MyoMarker screen, CPK and aldolase. Rheumatoid factor negative, anti CCP negative and hypersensitivity pneumonitis panel pending. Later in the day patient had a CT scan of the chest and compared to 12/04/2024 showed improved but persistent diffuse ground-glass infiltrates and improved but persistent patchy consolidative infiltrates. Persistent peripheral and lower lobe reticulations with areas of honeycombing. 12/13/24: patient tells me that he is breathing normal at rest but has dyspnea on exertion when walking to the chair. He is afebrile. Persistent cough with minimal phlegm. When I enter the room he was on 5 L nasal cannula saturations 98%. I decreased him to 2 L nasal cannula and his saturations were 94%. White blood cell count 9.1, creatinine 0.95. Yesterday he diuresed 1.4 L. Cumulative diuresis since admission 5.7 L. Weight today 80.4. Plan: I will change the patient to p.o. [id number] mg PO Q day. CPK less than 20. TATIANA, Anca, MyoMarker screen, Hypersensitivity pneumonitis and aldolase pending. 12/14/24: patient tells me he slept well he tells me he is breathing better today than he was on 10/19/2024 when he was admitted to [facility] in [place]. he has no rest shortness of breath but dyspnea on exertion with any activity. He is producing clear phlegm. He is afebrile. Last night he was on 2 L nasal cannula and said he slept well. This morning eating breakfast he had desats into the mid 80s and was placed on 5 L when I enter the room he was on 4 L with saturations 88% by 1 finger probe and 94 with another. I decreased him to 2 L and his saturations were 92%. White blood cell count 9.4, creatinine 0.93. Yesterday diuresed 654 mL with cumulative diuresed 6.2 L since admission. His weight today is 79.6. Chest x-ray today is interpreted by radiology as no change but my interpretation is mild improvement in his diffuse alveolar and interstitial infiltrates in all lung jerez. Plan: Continue prednisone 60 mg p.o. q.day, day 10 of steroids. Anca, MyoMarker screen, hypersensitivity pneumonitis, aldolase pending. TATIANA test canceled by the lab and I reordered. Patient's oxygen levels are now decreased and agree with plans for discharge to [facility]. 12/15/24: Patient tells me he is breathing normally at rest. He has dyspnea on exertion when he walks to the chair. He continues with cough and white phlegm but denies hemoptysis. When I enter the room he was on 8 L with saturations 98% and his monitor pulse oximeter was reading 4 points lower than A standard pulse oximeter. I decreased him to 2 L and his saturations were 96%. He is afebrile. White blood cell count 9.0, creatinine 0.99. BNP 13 40, improved from 1700 o n 12/12/2024. From a pulmonary perspective patient is ready for discharge on these Pulmonary Medicine: Prednisone 60 mg PO Q day last does 12/18, then 50 mg PO Q day from 12/19 through 12/25, then 40 mg PO Q day from 12/26 through 01/01, then 30 mg PO Q day from 01/02 through 01/09, then prednisone 20 mg PO Q day with repeat chest Xray. Protonix 40 mg p.o. q.day DS 1 Tab PO thursday, thursday and thursday Calcium 1000 mg PO Q day Vitamin D 800 IU Q day Oxygen at rest and with activity per facilities protocol, currently requiring 2 L at rest. Oxygen at night 2 L NC. Follow up in pulmonary clinic in 3-4 weeks. I gave him my business card and informed our ticket scheduler. Discussed with Dr. Cabello, will sign off, call with questions. (2) Acute and chronic respiratory failure: Code(s): J96.20 - Acute and chronic respiratory failure, unspecified whether with hypoxia or hypercapnia Status: Acute Assessment and Plan: Patient developed respiratory failure in October, required oxygen at discharge after being in [facility] in [place] for about a week. Returned to [facility], another pulmonary admission, then went to [facility], developed COVID with multifocal pneumonia in November 2024, has been on high flow most of this month. He was transferred to [facility] December 02, had steep increase in O2 requirement in the last 2 days. Family thinks that since he went on a Thursday night, he did not get meds, deteriorated, and came here by ambulance with increased O2 requirement. His admission CXR = severe interstitial fibrosis, possible pulmonary edema. the cardiac silhouette does not appear enlarged. He was on prednisone 20 mg at the time he was transferred to [facility] December 02. Due to his rapid deterioration, I started high dose steroids for an exacerbation of pulmonary fibrosis, 250 mg IV Q 6 hours and Lasix 40 mg IV Q 12 hours. This has been weaned, and today December 08, continued weaning with a lower dose to 40 mg IV Q 8 hours on 12/11/24. I stopped his LAsix 40 mg IV Q 12 hours yesterday with rising BUN/creat. Today his O2 need is lower, 6 L/min at rest. ABG on 12/06/2024 7.4 10/09/2031 on 35 L and 80% FiO2. There is no evidence of hypercarbic respiratory failure. 12/09/24: Peak oxygen Airvo 45L 88% FIO2 12/12/24: Currently have wean the patient down to 10 L nasal cannula. Goal saturation 90-94%. Wean as tolerated. 12/13/2024: Currently patient is on 2 L nasal cannula with saturations 94%. Plan: goal saturation 90-94% and will wean oxygen accordingly. Overnight oximetry on 2 L ordered. 12/14/24: Overnight oximetry on 2 L did not record any data due to technical issues. Currently the patient is on 2 L with saturations 92%. Plan: Goal saturation 90 94% wean oxygen accordingly. I will reorder overnight oximetry on 2 L tonight. 12/15/24: Patient had an overnight oximetry on 2 L nasal cannula with recording duration of 6 hours and 40 minutes. Average saturation 95%. Low saturation 88%. Time with saturation less than or equal to 88% was 0 minutes. Oxygen desaturation index 0.5. Plan: oxygen at rest and with activity per facility protocol. Patient should wear 2 L nasal cannula at night. Subjective Date/time seen: 12/15/24 10:20 Interval history: 12/05/2024; new consult; Zack Fofana is an 79-year-old man with ILD, no history of tobacco, no history of any lung disease until he developed shortness of breath in October 2024. He was at [facility] admitted October 19 through October 27 related to shortness of breath, family thinks he had atrial fibrillation and this was controlled with metoprolol. Went home for a short amount of time, maybe a day, returned to [facility] in [place] with hemoptysis, and was diagnosed with multifocal pneumonia secondary to COVID during this admission. He developed atrial fibrillation. He had a transesophageal cardioversion and was back in sinus rhythm. He was on Eliquis 2.5 mg b.i.d.. He was transferred to an LTAC for weaning oxygen, He was diagnosed with pulmonary fibrosis. He was re- admitted about October 28; November 03 he was in a regular room at [facility], then was transferred to November 04 to ICU [facility], deteriorated. He was on high-flow but not intubated. During this admission, he was diagnosed with COVID. November 09 he was sent to [facility] in [facility], November 09 until December 02, was stabilized, November 23 he was on 60 liters/minute and 75% FiO2. He was transferred to [facility] on December 02 for rehab. He was able to have his O2 decreased to 2 L/minute. Thursday am, he woke up, was disoriented, his heart rate was high 120, his O2 sat was low in the low 80s, but his son said that this seemed to be a little worse. He came to [facility] with saturation 80% on 6-8 L. Chart from [facility] shows PMH including BPH, a fib, hyperlipidemia, multifocal pneumonia due to COVID. pulmonary hypertension, chronic respiratory failure, severe protein calorie malnutrition. At [facility], he was on 5 L with sat 96%. During the last week, heart rate was elevated at 120; family was not sure why. I did not see tachycardia documented in the notes from [facility]. His transfer medication list from [facility] showed that he was on prednisone 20 mg po daily, propafenone 225 mg q.8 hours for atrial fib., PMH : DM 8 years ago. No chronic medical problems otherwise per family. No surgeries. : 2 years in [place]. 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 He was never evaluated for asbestosis. He had no history of lung disease when he was working. He retired around age 63. He worked in [employer] for 2 or 3 years and this was 30 or 40 years ago. He had no lung issues until around [address] Elio Porter in [place]; had fluid on his lung in the nodule, the fluid resolved on its own so he did not need a thoracentesis, he went home, did not need pulmonary follow up. Tobacco: never smoker. Soc: He is to Padmini, they raised 4 children. He has not been at home over a few days since October due to his respiratory problems, and being in a hospital or LTAC/Rehab. Family hx: father at age 82, was a train examiner. 12/06/2024; hospital follow up; He had PAF today, carboy filler saw him and started meds to control his rate, now on diltiazem drip 5 mg an hour in addition to metoprolol 12.5 mg Q 6 hours. He had wound care today for his bottom, is feeling a little better. His son Ethan is at the bedside, and Ethan's friend is visiting. The patient feels fine when he is sitting still, not exerting himself. He started high dose steroids last night Solu-medrol 250 mg IV Q 6 hours. He is on Lasix 40 mg IV Q 12 hours. Blood glucose is high, 253 to 412. Na+ is lower 122, serum CO2 is 21, lower, was 24 yesterday. He is not coughing. He has no joint pain. Appetite is increased with steroids. 12/08/24; hospital follow up; He is now on 6 L/min, and granddaughter at bedside. O2 need is lower, and he has had Lasix stopped, steroids decreased. I did not receive notes from [facility]. I spoke with them about causes for pulmonary fibrosis. He does not have a history of this before October 2024. He had COVID in November, and had worsening fibrosis afterwards. BUN 51, creat 1.75, glucose remains elevated 256 to 351. I plan to order work up for pulmonary fibrosis, TATIANA, hypersensitivity profile, anti CCP antibodies, rheumatoid factor. Was expecting to see all these results from prior admissions at [facility] and [facility] in [place]. He is now on solumedrol 60 mg IV Q 8 hours. With rising BUN and creat, I will decrease again, 40 mg IV Q 8 hours. He continues to have physical therapy. CXR 12/07 was exactly the same as admission, IMPRESSION: Stable radiographic evaluation of the chest demonstrating severe pulmonary fibrosis, as detailed above. Dec 09; He is saturating 97% on High flow, sat is higher than needed, so this can be weaned at rest. He drops saturation with exertion. He says that when his saturation drops, his therapist tells him to sit down, not exert himself. He needs to have O2 increased as highas needed to allow him to exercise. He is going to become more deconditioned by sitting in bed. 12/12/24: overall the patient tells me that his cough is better than when he arrived. His phlegm when he arrived was black and now it is clear. He has minimal rest shortness of breath. His dyspnea on exertion walking across the room to the chair. When I enter the room he was on Airvo 30 L and 50% FiO2 with saturations 96%. I changed him to 15 L nasal cannula and his saturations were 95%. I then decreased him to 10 L and his saturations were 94%. White blood cell count 7.2, creatinine 0.99, BNP 1700, procalcitonin 0.1. yesterday he was -1 L. Cumulative since admission he is -4.2 L. his weight today is 82.5 with an admission weight of 83.8. Later in the day patient had a CT scan of the chest and compared to 12/04/2024 showed improved but persistent diffuse ground-glass infiltrates and improved but persistent patchy consolidative infiltrates. Persistent peripheral and lower lobe reticulations with areas of honeycombing. 12/13/24: patient tells me that he is breathing normal at rest but has dyspnea on exertion when walking to the chair. He is afebrile. Persistent cough with minimal phlegm. When I enter the room he was on 5 L nasal cannula saturations 98%. I decreased him to 2 L nasal cannula and his saturations were 94%. White blood cell count 9.1, creatinine 0.95. Yesterday he diuresed 1.4 L. Cumulative diuresis since admission 5.7 L. Weight today 80.4. 12/14/24: patient tells me he slept well he tells me he is breathing better today than he was on 10/19/2024 when he was admitted to [facility] in [place]. he has no rest shortness of breath but dyspnea on exertion with any activity. He is producing clear phlegm. He is afebrile. Last night he was on 2 L nasal cannula and said he slept well. This morning eating breakfast he had desats into the mid 80s and was placed on 5 L when I enter the room he was on 4 L with saturations 88% by 1 finger probe and 94 with another. I decreased him to 2 L and his saturations were 92%. White blood cell count 9.4, creatinine 0.93. Yesterday diuresed 654 mL with cumulative diuresed 6.2 L since admission. His weight today is 79.6. Chest x-ray today is interpreted by radiology as no change but my interpretation is mild improvement in his diffuse alveolar and interstitial infiltrates in all lung jerez. 12/15/24: Patient tells me he is breathing normally at rest. He has dyspnea on exertion when he walks to the chair. He continues with cough and white phlegm but denies hemoptysis. When I enter the room he was on 8 L with saturations 98% and his monitor pulse oximeter was reading 4 points lower than A standard pulse oximeter. I decreased him to 2 L and his saturations were 96%. He is afebrile. White blood cell count 9.0, creatinine 0.99. BNP 13 40, improved from 1700 on 12/12/2024. Patient had an overnight oximetry on 2 L nasal cannula with recording duration of 6 hours and 40 minutes. Average saturation 95%. Low saturation 88%. Time with saturation less than or equal to 88% was 0 minutes. Oxygen desaturation index 0.5. DATA: 12/12/24: EXAMINATION: CT diagnostic chest wo con INDICATION: Post covid ILD COMPARISON: 12/04/2024 FINDINGS: No significant change in some volume loss in both lungs with elevation the left hemidiaphragm. Again seen is peripheral and lower lung predominant irregular septal line thickening and groundglass opacities with peripheral honeycombing consistent with severe usual interstitial pneumonia (UIP) pattern chronic interstitial lung disease. The groundglass opacities as well as more patchy airspace consolidation at the time of the prior study appears improved likely representing interval improvement in previously superimposed pneumonia or pulmonary edema. Diffuse mild pleural thickening in the right hemithorax with a few unilateral right-sided calcified pleural plaques suggesting prior exudative effusion. Possible minimal right pleural effusion. Calcified left lower lobe nodule along with calcified left hilar lymph nodes and a few scattered hepatic and splenic calcifications, all consistent with old granulomatous disease. Cardiomegaly. Small amount of atherosclerotic coronary artery calcium and aortic valve calcific lesion. Unchanged minimal pericardial effusion. Thoracic aorta is normal in caliber. Enlargement of the central pulmonary arteries consistent with pulmonary arterial hypertension. Decrease in size of multiple mildly prominent but no normal-sized mediastinal lymph nodes which are likely reactive. Mild to moderate thoracic spondylosis. IMPRESSION: 1. Severe peripheral and lower lung predominant UIP pattern chronic interstitial lung disease with interval improvement in prior superimposed pulmonary edema and/or pneumonia. 2. Improvement in prior likely reactive mediastinal lymphadenopathy. 3. Unchanged pleural thickening with some scattered calcified pleural plaques in the right hemithorax, likely sequela of chronic exudative effusion with possible residual very small right pleural effusion. 4. Cardia megaly and enlargement of the central pulmonary arteries, the latter consistent with pulmonary arterial hypertension likely related to the chronic interstitial lung disease. on 12/05/24; Ethan shared images of his father's CXRs with the dates on his cell phone. I reviewed CXR 11/21/24 [facility], not as severe as this CXR today. November 09, 2024 [facility]; not as abnormal as today, fibrosis visible, more aerated lungs in apices. * 12/05/2024 CXR : Cardiomediastinal silhouette is partially obscured. Diffuse interstitial thickening with a bilateral lower lobe, likely chronic. Small bilateral pleural effusions are also noted. Peripheral and bibasilar honeycombing is present. IMPRESSION: Re-demonstration of severe interstitial lung disease, as detailed above. document embedded image * 12/04/2024; chest CT: IMPRESSION: Severe bilateral interstitial lung disease, as detailed above. Volume loss within the right hemithorax. Mediastinal lymphadenopathy. Findings suggesting prior granulomatous disease. Decreased attenuation within the periphery of the lateral margin of the spleen, possibly related to bolus timing in the absence of a history of trauma for which clinical correlation is needed. * 12/04/2024 EKG; Sinus rhythm with incomplete right bundle-branch block, minimal ST depression. *12/05/2024, white blood cell count 5.2, hemoglobin 10.6, hematocrit 32%, platelets 150 k. Review of Systems Review of Systems: All systems reviewed & are unremarkable except as noted in HPI and below Constitutional: Constitutional: Reports no additional constitutional complaints Eyes: Eyes: Reports no additional eye complaints ENT: Reports system reviewed and no additional complaints, except as documented Cardiovascular: Cardiovascular: Reports no additional cardiovascular complaints Respiratory: Respiratory: Reports no additional respiratory complaints Gastrointestinal: Gastrointestinal: Reports no additional gastrointestinal complaints Musculoskeletal: Musculoskeletal: Reports no additional musculoskeletal complaints Neurologic: Reports system reviewed and no additional complaints, except as documented Psychiatric: Psychiatric: Reports no additional psychiatric complaints Endocrine: Endocrine: Reports no additional endocrine complaints Hematologic/Lymphatic: Hematologic/Lymphatic: Reports no additional hematologic/lymphatic complaints Allergic/Immunologic: Allergic/Immunologic: Reports no additional allergic/immunologic complaints Exam Const: General: cooperative, healthy appearing and comfortable Orientation/consciousness: oriented to person, oriented to place and oriented to time HENMT: Head: normal to inspection Ears: hearing grossly normal bilaterally Eyes: General: appearance normal, both eyes and all related structures Neck: Neck: normal visual inspection Chest: Chest palpation & inspection: normal inspection of the chest Resp: Effort & Inspection: normal respiratory effort and able to speak in complete sentences Auscultation: crackles, no rales, no rhonchi, no wheezes and lung sounds not diminished Other: Dry crackles at both bases. No wheezing. Cardio: Jugular venous distension: no JVD GI: Inspection: normal to inspection Skin: General skin exam: normal color Neuro: General: oriented to person, oriented to place and oriented to time Extrem: General: normal to inspection Other: Sacral decub Psych: Appearance: grossly normal Objective Data Vital Signs Vital Signs: Vital Signs - 24 hr 12/14/24 12:00 12/14/24 12:00 12/14/24 12:00 Temperature 36.6 C Pulse Rate 102 H 102 H Respiratory Rate 22 H Blood Pressure 122/55 L Pulse Oximetry 93 90 Oxygen Delivery High Flow Therapy with Na Oxygen Flow Rate 3 12/14/24 14:00 12/14/24 16:00 12/14/24 16:00 Temperature 36.3 C L Pulse Rate 90 96 100 Respiratory Rate 22 H Blood Pressure 121/65 Pulse Oximetry 97 Oxygen Delivery Oxygen Flow Rate 12/14/24 18:00 12/14/24 19:50 12/14/24 20:00 Temperature Pulse Rate 100 88 93 Respiratory Rate 20 Blood Pressure Pulse Oximetry 94 Oxygen Delivery High Flow Therapy with Na Oxygen Flow Rate 4 12/14/24 20:44 12/14/24 22:00 12/14/24 23:26 Temperature 36.6 C 36.4 C Pulse Rate 81 99 91 Respiratory Rate 21 H 20 Blood Pressure 128/74 116/51 L Pulse Oximetry 98 91 Oxygen Delivery Oxygen Flow Rate 12/14/24 23:30 12/15/24 00:00 12/15/24 02:00 Temperature Pulse Rate 88 95 85 Respiratory Rate 18 Blood Pressure Pulse Oximetry 95 Oxygen Delivery High Flow Therapy with Na Oxygen Flow Rate 4 12/15/24 03:45 12/15/24 04:00 12/15/24 04:24 Temperature 36.6 C Pulse Rate 100 99 92 Respiratory Rate 20 20 Blood Pressure 123/48 L Pulse Oximetry 91 91 Oxygen Delivery High Flow Therapy with Na Oxygen Flow Rate 4 12/15/24 06:00 12/15/24 08:00 12/15/24 08:00 Temperature 36.5 C Pulse Rate 109 H 101 H Respiratory Rate 22 H Blood Pressure 97/50 L Pulse Oximetry 94 100 Oxygen Delivery High Flow Nasal Cannula Oxygen Flow Rate 2 Intake/Output Intake/Output: Intake & Output 12/12/24 12/13/24 12/14/24 12/15/24 23:59 23:59 23:59 23:59 Intake Total 1370 2396 1640 550 Output Total 2800 3050 1400 950 Balance -1430 -654 240 -400 Meds/Results Medications: Active Medications Generic Name Dose Route Start Last Admin Trade Name Freq PRN Reason Stop Dose Admin Acetaminophen 650 mg 12/04/24 20:38 12/15/24 09:45 Acetaminophen 325 Mg Tablet PO 650 mg Q6H PRN Administration fever or pain 1-3 Apixaban 5 mg 12/13/24 09:35 12/15/24 09:46 Apixaban 5 Mg Tablet PO 5 mg Q12HR HAJA Administration Atorvastatin Calcium 10 mg 12/04/24 21:00 12/14/24 20:51 Atorvastatin 10 Mg Tablet PO 10 mg HS HAJA Administration Benzonatate 100 mg 12/04/24 20:38 Benzonatate 100 Mg Capsule PO Q6H PRN cough Bisacodyl 10 mg 12/04/24 20:38 Bisacodyl 10 Mg Suppository RECTAL DAILY PRN constipation Dextrose 12.5 gm 12/04/24 20:40 Dextrose 50% 25 Gm/50 Ml Syringe IV PUSH PRN PRN Hypoglycemia Protocol Diltiazem HCl 120 mg 12/07/24 09:00 12/09/24 08:53 Diltiazem Hcl Cd 120 Mg Cap.24hr PO 120 mg QAM HAJA Administration Fluticasone Propionate 1 spray 12/04/24 20:38 Fluticasone Propionate 0.05% Na Spr 16 Gm Btl (*Bkc) NASAL DAILY PRN allergy symptoms Glucagon 1 mg 12/04/24 20:40 Glucagon For Inj 1 Mg Vial IM PRN PRN Hypoglycemia Protocol Glucose 15 gm 12/04/24 20:40 Glucose Oral Gel 15 Gm Of Glucse In 37.5 Gm Tube PO PRN PRN Hypoglycemia Protocol Dextrose 1,000 mls @ 100 mls/hr 12/04/24 20:40 Dextrose 5% 1,000 Ml IVPB PRN PRN Hypoglycemia Protocol Insulin Aspart 3 - 6 units 12/08/24 11:47 12/15/24 07:52 Insulin Aspart (*Bkc) 100 Units/Ml SUB-Q Not Given TIDWM HAJA Protocol Insulin Aspart 3 - 6 units 12/08/24 21:00 12/14/24 20:51 Insulin Aspart (*Bkc) 100 Units/Ml SUB-Q 3 units HS HAJA Administration Protocol Insulin Glargine 20 units 12/05/24 09:00 12/15/24 09:55 Insulin Glargine (*Bkc) 100 Units/Ml SUB-Q 20 units DAILY HAJA Administration Magnesium Hydroxide 30 ml 12/04/24 20:38 Magnesium Hydroxide Susp 30 Ml Udc PO HS PRN constipation Melatonin 5 mg 12/04/24 21:00 12/14/24 20:51 Melatonin 5 Mg Tablet PO 5 mg HS HAJA Administration Metoprolol Tartrate 12.5 mg 12/05/24 12:00 12/08/24 05:02 Metoprolol Tartrate 12.5 Mg Tablet PO Not Given Q6HR HAJA Pantoprazole Sodium 40 mg 12/05/24 21:10 12/15/24 09:46 Pantoprazole 40 Mg Tablet PO 40 mg Q12HR HAJA Administration Polyethylene Glycol 17 gm 12/04/24 20:38 Polyethylene Glycol 3350 17 Gm Powd.Pack PO BID PRN constipation Prednisone 60 mg 12/13/24 11:50 12/15/24 09:45 Prednisone 20 Mg Tablet PO 60 mg DAILY@0800 HAJA Administration Sodium Chloride 500 mg 12/14/24 13:00 12/15/24 09:46 Sodium Chloride 500 Mg Tablet PO 500 mg TID HAJA Administration Tamsulosin HCl 0.4 mg 12/04/24 21:00 12/14/24 20:51 Tamsulosin Hcl 0.4 Mg Capsule PO 0.4 mg HS HAJA Administration Radiology Results: ITS Impressions Chest CT 12/12/24 14:13 IMPRESSION: 1. Severe peripheral and lower lung predominant UIP pattern chronic interstitial lung disease with interval improvement in prior superimposed pulmonary edema and/or pneumonia. 2. Improvement in prior likely reactive mediastinal lymphadenopathy. 3. Unchanged pleural thickening with some scattered calcified pleural plaques in the right hemithorax, likely sequela of chronic exudative effusion with possible residual very small right pleural effusion. 4. Cardia megaly and enlargement of the central pulmonary arteries, the latter consistent with pulmonary arterial hypertension likely related to the chronic interstitial lung disease. Chest X-Ray 12/14/24 08:59 Impression: 1: Stable coarse chronic interstitial lung disease. Cannot exclude superimposed edema or pneumonia. Labs Labs: Laboratory Results - last 24 hr 12/13/24 12/14/24 12/14/24 03:37 04:35 11:32 WBC RBC Hgb Hct MCV MCH MCHC RDW Plt Count MPV Immature Gran % (Auto) Neut % (Auto) Lymph % (Auto) [place] % (Auto) Eos % (Auto) Baso % (Auto) Lymph # (Auto) [place] # (Auto) Eos # (Auto) Baso # (Auto) Abs Immat Gran (auto) Absolute Neuts (auto) Absolute Nucleated RBC Nucleated RBC % Sodium Potassium Chloride Carbon Dioxide Anion Gap BUN Creatinine Estim Creat Clear Calc Estimated GFR Glucose POC Capillary Glucose 143 H Calcium Magnesium Total Bilirubin AST ALT Alkaline Phosphatase NT-Pro-B Natriuret Pep Total Protein Albumin Rjqiy-2-Wglhalerqzc 127 Aldolase 5.7 12/14/24 12/14/24 12/15/24 15:50 20:46 04:00 WBC 9.0 RBC 3.57 L Hgb 10.2 L Hct 29.9 L MCV 83.8 MCH 28.6 MCHC 34.1 RDW 15.9 H Plt Count 173 MPV 8.3 Immature Gran % (Auto) 8.0 H Neut % (Auto) 58.6 Lymph % (Auto) 25.6 [place] % (Auto) 7.2 Eos % (Auto) 0.2 Baso % (Auto) 0.4 Lymph # (Auto) 2.31 [place] # (Auto) 0.7 H Eos # (Auto) 0.0 Baso # (Auto) 0.0 Abs Immat Gran (auto) 0.72 H Absolute Neuts (auto) 5.3 Absolute Nucleated RBC 0.040 H Nucleated RBC % 0.4 H Sodium 124 L Potassium 4.3 Chloride 96 L Carbon Dioxide 31 H Anion Gap -3 L BUN 29 H Creatinine 0.99 Estim Creat Clear Calc 57 Estimated GFR > 60 Glucose 80 POC Capillary Glucose 217 H 201 H Calcium 7.6 L Magnesium 2.0 Total Bilirubin 0.6 AST 22 ALT 29 Alkaline Phosphatase 71 NT-Pro-B Natriuret Pep 1340 H Total Protein 4.9 L Albumin 2.3 L Xctcm-1-Cabkdbvnwbx Aldolase 12/15/24 12/15/24 07:15 09:53 WBC RBC Hgb Hct MCV MCH MCHC RDW Plt Count MPV Immature Gran % (Auto) Neut % (Auto) Lymph % (Auto) [place] % (Auto) Eos % (Auto) Baso % (Auto) Lymph # (Auto) [place] # (Auto) Eos # (Auto) Baso # (Auto) Abs Immat Gran (auto) Absolute Neuts (auto) Absolute Nucleated RBC Nucleated RBC % Sodium Potassium Chloride Carbon Dioxide Anion Gap BUN Creatinine Estim Creat Clear Calc Estimated GFR Glucose POC Capillary Glucose 64 L 290 H Calcium Magnesium Total Bilirubin AST ALT Alkaline Phosphatase NT-Pro-B Natriuret Pep Total Protein Albumin Xebwk-5-Qxnkxexccoj Aldolase
[2024-12-15 12:26] LABS: Anion Gap 5 mmol/L (4-12); Blood Urea Nitrogen 30 mg/dL (9-20); Calcium 7.7 mg/dL (8.4-10.2); Carbon Dioxide 29 mmol/L (22-30); Chloride 92 mmol/L (98-107); Estimated CRCL calculation 51 ml/min; Estimated Glomerular Filt Rate > 60; Glucose 241 mg/dL (65-110); Potassium 4.7 mmol/L (3.4-5.0); Sodium 126 mmol/L (137-145)
[2024-12-15] MEDS: INSULIN ASPART (*BKC) 100 UNITS/ML SUB-Q ×3 (12:44→20:52)
--- NOTE | 2024-12-15 14:45 | ECG_ITS ---
Test Date: 2024-12-15 15:45:01 Measurements Intervals [place] Rate: 92 P: 0 ME: 0 QRS: 17 QRSD: 109 T: -30 QT: 327 QTc: 405 Interpretive Statements ATRIAL FIBRILLATION INCOMPLETE RIGHT BUNDLE BRANCH BLOCK VOLTAGE CRITERIA FOR LVH NONSPECIFIC ST & T-WAVE ABNORMALITY- - INFERIOR LEADS ABNORMAL ECG Compared to ECG 12/06/2024 03:51:28 HEART RATE HAS DECREASED Electronically Signed On 12-15-2024 16:11:34 CDT by Phil Cedeno D.O.
--- NOTE | 2024-12-15 14:47 | PM.IMPN ---
Progress Note: A&P Assessment and Plan (1) Hypotension: Code(s): I95.9 - Hypotension, unspecified Status: Acute (2) Dyspnea: Code(s): R06.00 - Dyspnea, unspecified Status: Acute (3) Hyponatremia: Code(s): E87.1 - Hypo-osmolality and hyponatremia Status: Acute (4) Impaired skin integrity: Code(s): R23.9 - Unspecified skin changes Status: Acute (5) Interstitial lung disease: Code(s): J84.9 - Interstitial pulmonary disease, unspecified Status: Chronic (6) Atrial fibrillation: Code(s): I48.91 - Unspecified atrial fibrillation Status: Chronic Plan ILD most likely 2/2 COVID infection on [address] Chest evaluated Now on prednisone 60mg po today per Pulm, s/p IV steroid TATIANA, ANCA, MyoMarker and aldolase Overnight oximetry failed due to equipment malfunction will repeat tonight Pulmonology recomendations: Prednisone 60 mg PO Q day through 12/18, then 50 mg PO Q day for 7 days, then 40 mg PO Q day for 7 days, then 30 mg PO Q day X 7 days, then prednisone 20 mg PO Q day with repeat chest Xray. Sept DS 1 Tab PO thursday, thursday and thursday Calcium 1000 mg PO Q day Vitamin D 800 IU Q day Oxygen at rest and with activity per Emily protocol Oxygen at night per Emily protocol Follow up in pulmonary clinic in 3-4 weeks. Paroxysmal Afib HR now in 110s adn 120s Cardiology recommended holding Propafenone, digoxin, Metoprolol and Diltiazem continue Eliquis ECHO showed EF 70% s/p Digoxin immune CESAR reconsulted cardiology for adjustment of rate control Hyponatremia Improving, Na 126 on salt tablets, fluid restriction and Lasix monitor DVT prophylaxis on Eliquis Code status full code discussed with the patient again. Awaiting improvement in Na for discharge Subjective Date/time seen: 12/15/24 14:47 Interval history: Comfortable at bedside however HR 110s cardiology reconsulted Review of Systems Review of Systems: All systems reviewed & are unremarkable except as noted in HPI and below Exam Narrative: Patient is comfortable, NAD HEENT: eyes are clear and none icteric LUNGS: Bilateral fair air entry with harsh breath sounds HEART: RR S1S2 ABD: BS+, Soft and nontender Lower extremities: no edema SKIN: nonjaundiced Neuro: grossly intact. Const: General: comfortable and no acute distress Other: Elderly male pt lying in bed at this time in no acute distress. HENMT: Face/Nose/Sinus: Normal nares present Mouth: Yes moist mucous membranes Eyes: General: appearance normal, both eyes and all related structures Neck: Neck: supple and no JVD Lymphatic: lymphadenopathy not noted Chest: Other: Non-tender Resp: Effort & Inspection: normal respiratory effort Auscultation: rhonchi lower bilaterally (coarse in bases.) Cardio: Rate: tachycardic Rhythm: regular rhythm Heart sounds: no gallops, no murmurs and no rubs GI: Auscultation: normal bowel sounds Skin: General skin exam: rashes (Red, purpural rash in a band around the abdomen, back and the sides ) and wounds noted (coccyx stage 2) Rashes: rashes noted (Red, purpural rash in a band around the abdomen, back and the sides ) Wounds: wounds noted (coccyx stage 2) Other: Rash is in a location where a depends or an adult brief would sit on his skin. Pt acknowledges that he does wear a brief at the retirement. Neuro: Speech: normal speech Motor exam (neuro): 5/5 motor strength present throughout Sensory Exam: normal sensation Other: No focal deficit. Extrem: General: no edema and no pedal edema Other: No swelling present. FROM of extremities without deficit. Psych: Mental Status: mental status grossly normal Affect: normal affect Objective Data Vital Signs Vital Signs: Vital Signs - 24 hr 12/14/24 16:00 12/14/24 16:00 12/14/24 18:00 Temperature 97.4 F L Pulse Rate 96 100 100 Respiratory Rate 22 H Blood Pressure 121/65 Pulse Oximetry 97 Oxygen Delivery Oxygen Flow Rate 12/14/24 19:50 12/14/24 20:00 12/14/24 20:44 Temperature 97.8 F Pulse Rate 88 93 81 Respiratory Rate 20 21 H Blood Pressure 128/74 Pulse Oximetry 94 98 Oxygen Delivery High Flow Therapy with Na Oxygen Flow Rate 4 12/14/24 22:00 12/14/24 23:26 12/14/24 23:30 Temperature 97.6 F Pulse Rate 99 91 88 Respiratory Rate 20 18 Blood Pressure 116/51 L Pulse Oximetry 91 95 Oxygen Delivery High Flow Therapy with Na Oxygen Flow Rate 4 12/15/24 00:00 12/15/24 02:00 12/15/24 03:45 Temperature Pulse Rate 95 85 100 Respiratory Rate 20 Blood Pressure Pulse Oximetry 91 Oxygen Delivery High Flow Therapy with Na Oxygen Flow Rate 4 12/15/24 04:00 12/15/24 04:24 12/15/24 06:00 Temperature 97.8 F Pulse Rate 99 92 109 H Respiratory Rate 20 Blood Pressure 123/48 L Pulse Oximetry 91 Oxygen Delivery Oxygen Flow Rate 12/15/24 08:00 12/15/24 08:00 12/15/24 08:00 Temperature 97.7 F Pulse Rate 101 H 107 H Respiratory Rate 22 H Blood Pressure 97/50 L Pulse Oximetry 94 100 Oxygen Delivery High Flow Nasal Cannula Oxygen Flow Rate 2 12/15/24 10:00 12/15/24 11:48 12/15/24 12:00 Temperature 97.9 F Pulse Rate 108 H 78 Respiratory Rate 22 H Blood Pressure 138/82 Pulse Oximetry 98 94 Oxygen Delivery High Flow Nasal Cannula Oxygen Flow Rate 2 12/15/24 12:00 Temperature Pulse Rate 110 H Respiratory Rate Blood Pressure Pulse Oximetry Oxygen Delivery Oxygen Flow Rate Intake/Output Intake/Output: Intake & Output 12/12/24 12/13/24 12/14/24 12/15/24 23:59 23:59 23:59 23:59 Intake Total 1370 2396 1640 790 Output Total 2800 3050 1400 950 Balance -1430 654 240 -160 Meds/Results Medications: Active Medications Generic Name Dose Route Start Last Admin Trade Name Freq PRN Reason Stop Dose Admin Acetaminophen 650 mg 12/04/24 20:38 12/15/24 09:45 Acetaminophen 325 Mg Tablet PO 650 mg Q6H PRN Administration fever or pain 1-3 Apixaban 5 mg 12/13/24 09:35 12/15/24 09:46 Apixaban 5 Mg Tablet PO 5 mg Q12HR HAJA Administration Atorvastatin Calcium 10 mg 12/04/24 21:00 12/14/24 20:51 Atorvastatin 10 Mg Tablet PO 10 mg HS HAJA Administration Benzonatate 100 mg 12/04/24 20:38 Benzonatate 100 Mg Capsule PO Q6H PRN cough Bisacodyl 10 mg 12/04/24 20:38 Bisacodyl 10 Mg Suppository RECTAL DAILY PRN constipation Dextrose 12.5 gm 12/04/24 20:40 Dextrose 50% 25 Gm/50 Ml Syringe IV PUSH PRN PRN Hypoglycemia Protocol Diltiazem HCl 120 mg 12/07/24 09:00 12/09/24 08:53 Diltiazem Hcl Cd 120 Mg Cap.24hr PO 120 mg QAM HAJA Administration Fluticasone Propionate 1 spray 12/04/24 20:38 Fluticasone Propionate 0.05% Na Spr 16 Gm Btl (*Bkc) NASAL DAILY PRN allergy symptoms Glucagon 1 mg 12/04/24 20:40 Glucagon For Inj 1 Mg Vial IM PRN PRN Hypoglycemia Protocol Glucose 15 gm 12/04/24 20:40 Glucose Oral Gel 15 Gm Of Glucse In 37.5 Gm Tube PO PRN PRN Hypoglycemia Protocol Dextrose 1,000 mls @ 100 mls/hr 12/04/24 20:40 Dextrose 5% 1,000 Ml IVPB PRN PRN Hypoglycemia Protocol Insulin Aspart 3 - 6 units 12/08/24 11:47 12/15/24 12:44 Insulin Aspart (*Bkc) 100 Units/Ml SUB-Q 4 units TIDWM HAJA Administration Protocol Insulin Aspart 3 - 6 units 12/08/24 21:00 12/14/24 20:51 Insulin Aspart (*Bkc) 100 Units/Ml SUB-Q 3 units HS HAJA Administration Protocol Insulin Glargine 20 units 12/05/24 09:00 12/15/24 09:55 Insulin Glargine (*Bkc) 100 Units/Ml SUB-Q 20 units DAILY HAJA Administration Magnesium Hydroxide 30 ml 12/04/24 20:38 Magnesium Hydroxide Susp 30 Ml Udc PO HS PRN constipation Melatonin 5 mg 12/04/24 21:00 12/14/24 20:51 Melatonin 5 Mg Tablet PO 5 mg HS HAJA Administration Metoprolol Tartrate 12.5 mg 12/05/24 12:00 12/08/24 05:02 Metoprolol Tartrate 12.5 Mg Tablet PO Not Given Q6HR HAJA Pantoprazole Sodium 40 mg 12/05/24 21:10 12/15/24 09:46 Pantoprazole 40 Mg Tablet PO 40 mg Q12HR HAJA Administration Polyethylene Glycol 17 gm 12/04/24 20:38 Polyethylene Glycol 3350 17 Gm Powd.Pack PO BID PRN constipation Prednisone 60 mg 12/13/24 11:50 12/15/24 09:45 Prednisone 20 Mg Tablet PO 60 mg DAILY@0800 HAJA Administration Sodium Chloride 500 mg 12/14/24 13:00 12/15/24 12:44 Sodium Chloride 500 Mg Tablet PO 500 mg TID HAJA Administration Tamsulosin HCl 0.4 mg 12/04/24 21:00 12/14/24 20:51 Tamsulosin Hcl 0.4 Mg Capsule PO 0.4 mg HS HAJA Administration Radiology Results: ITS Impressions Chest CT 12/12/24 14:13 IMPRESSION: 1. Severe peripheral and lower lung predominant UIP pattern chronic interstitial lung disease with interval improvement in prior superimposed pulmonary edema and/or pneumonia. 2. Improvement in prior likely reactive mediastinal lymphadenopathy. 3. Unchanged pleural thickening with some scattered calcified pleural plaques in the right hemithorax, likely sequela of chronic exudative effusion with possible residual very small right pleural effusion. 4. Cardia megaly and enlargement of the central pulmonary arteries, the latter consistent with pulmonary arterial hypertension likely related to the chronic interstitial lung disease. Chest X-Ray 12/14/24 08:59 Impression: 1: Stable coarse chronic interstitial lung disease. Cannot exclude superimposed edema or pneumonia. Labs Labs: Laboratory Results - last 24 hr 12/13/24 12/13/24 12/14/24 03:34 03:37 04:35 WBC RBC Hgb Hct MCV MCH MCHC RDW Plt Count MPV Immature Gran % (Auto) Neut % (Auto) Lymph % (Auto) [place] % (Auto) Eos % (Auto) Baso % (Auto) Lymph # (Auto) [place] # (Auto) Eos # (Auto) Baso # (Auto) Abs Immat Gran (auto) Absolute Neuts (auto) Absolute Nucleated RBC Nucleated RBC % Sodium Potassium Chloride Carbon Dioxide Anion Gap BUN Creatinine Estim Creat Clear Calc Estimated GFR Glucose POC Capillary Glucose Calcium Magnesium Total Bilirubin AST ALT Alkaline Phosphatase NT-Pro-B Natriuret Pep Total Protein Albumin Opdpv-1-Ygrdbmhhqhk 127 Aldolase 5.7 Ur Random Sodium c-ANCA Antibody <1:20 Atypical p-ANCA <1:20 p-ANCA Antibody 1:640 H 12/14/24 12/14/24 12/15/24 15:50 20:46 04:00 WBC 9.0 RBC 3.57 L Hgb 10.2 L Hct 29.9 L MCV 83.8 MCH 28.6 MCHC 34.1 RDW 15.9 H Plt Count 173 MPV 8.3 Immature Gran % (Auto) 8.0 H Neut % (Auto) 58.6 Lymph % (Auto) 25.6 [place] % (Auto) 7.2 Eos % (Auto) 0.2 Baso % (Auto) 0.4 Lymph # (Auto) 2.31 [place] # (Auto) 0.7 H Eos # (Auto) 0.0 Baso # (Auto) 0.0 Abs Immat Gran (auto) 0.72 H Absolute Neuts (auto) 5.3 Absolute Nucleated RBC 0.040 H Nucleated RBC % 0.4 H Sodium 124 L Potassium 4.3 Chloride 96 L Carbon Dioxide 31 H Anion Gap -3 L BUN 29 H Creatinine 0.99 Estim Creat Clear Calc 57 Estimated GFR > 60 Glucose 80 POC Capillary Glucose 217 H 201 H Calcium 7.6 L Magnesium 2.0 Total Bilirubin 0.6 AST 22 ALT 29 Alkaline Phosphatase 71 NT-Pro-B Natriuret Pep 1340 H Total Protein 4.9 L Albumin 2.3 L Brrcx-1-Aarpakkybak Aldolase Ur Random Sodium c-ANCA Antibody Atypical p-ANCA p-ANCA Antibody 12/15/24 12/15/24 12/15/24 07:15 09:53 11:45 WBC RBC Hgb Hct MCV MCH MCHC RDW Plt Count MPV Immature Gran % (Auto) Neut % (Auto) Lymph % (Auto) [place] % (Auto) Eos % (Auto) Baso % (Auto) Lymph # (Auto) [place] # (Auto) Eos # (Auto) Baso # (Auto) Abs Immat Gran (auto) Absolute Neuts (auto) Absolute Nucleated RBC Nucleated RBC % Sodium Potassium Chloride Carbon Dioxide Anion Gap BUN Creatinine Estim Creat Clear Calc Estimated GFR Glucose POC Capillary Glucose 64 L 290 H 265 H Calcium Magnesium Total Bilirubin AST ALT Alkaline Phosphatase NT-Pro-B Natriuret Pep Total Protein Albumin Uweoz-3-Yaomyjjcfah Aldolase Ur Random Sodium c-ANCA Antibody Atypical p-ANCA p-ANCA Antibody 12/15/24 12/15/24 11:56 12:52 WBC RBC Hgb Hct MCV MCH MCHC RDW Plt Count MPV Immature Gran % (Auto) Neut % (Auto) Lymph % (Auto) [place] % (Auto) Eos % (Auto) Baso % (Auto) Lymph # (Auto) [place] # (Auto) Eos # (Auto) Baso # (Auto) Abs Immat Gran (auto) Absolute Neuts (auto) Absolute Nucleated RBC Nucleated RBC % Sodium 126 L Potassium 4.7 Chloride 92 L Carbon Dioxide 29 Anion Gap 5 BUN 30 H Creatinine 1.10 Estim Creat Clear Calc 51 Estimated GFR > 60 Glucose 241 H POC Capillary Glucose Calcium 7.7 L Magnesium Total Bilirubin AST ALT Alkaline Phosphatase NT-Pro-B Natriuret Pep Total Protein Albumin Lhwwx-7-Fbghgsbagpz Aldolase Ur Random Sodium 91 c-ANCA Antibody Atypical p-ANCA p-ANCA Antibody Quality VTE Prophylaxis VTE prophylaxis: pharmacologic ordered
[2024-12-15] MEDS: TAMSULOSIN HCL 0.4 MG CAPSULE PO (20:53)
[2024-12-15] MEDS: ATORVASTATIN 10 MG TABLET PO (20:53)
[2024-12-15] MEDS: MELATONIN 5 MG TABLET PO (20:53)
[2024-12-16] VITALS (13 sets, daily range): BP systolic 90–106; BP diastolic 40–57; PULSE 75–117; RESP 18–22; TEMP 36.4–36.8; O2SAT 93–100
[2024-12-16 04:18] LABS: Hematocrit 29.2 % (42.0-52.0); Hemoglobin 9.8 g/dL (14.0-18.0); Immature Granulocyte Percent A 5.8 % (0-0.5); Lymphocytes Absolute Auto 2.47 K/mm3 (0.9-3.2); Mean Corpuscular HGB Conc 33.6 g/dl (32-36); Mean Corpuscular Hemoglobin 28.6 pg (26-34); Mean Corpuscular Volume 85.1 fl (80-100); Nucleated Red Blood Cells Absolute Auto 0.000 K/mm3 (0.0-0.012); Nucleated Red Blood Cells Perc 0.0 % (0.0-0.2); Platelet Count Result 162 k/mm3 (150-375); Red Blood Count 3.43 M/mm3 (4.6-6.20); White Blood Count 9.8 K/mm3 (4.5-10.0)
[2024-12-16 04:31] LABS: Alanine Aminotransferase 28 U/L (6-50); Albumin Level 2.2 g/dL (3.5-5.1); Alkaline Phosphatase 70 U/L (38-126); Anion Gap 3 mmol/L (4-12); Aspartate Amino Transferase 22 U/L (17-59); Bilirubin,Total 0.5 mg/dL (0.2-1.3); Blood Urea Nitrogen 27 mg/dL (9-20); Calcium 7.4 mg/dL (8.4-10.2); Carbon Dioxide 30 mmol/L (22-30); Chloride 96 mmol/L (98-107); Estimated CRCL calculation 56 ml/min; Estimated Glomerular Filt Rate > 60; Glucose 116 mg/dL (65-110); Magnesium 2.0 mg/dL (1.6-2.3); Potassium 4.0 mmol/L (3.4-5.0); Sodium 129 mmol/L (137-145); Total Protein 4.8 g/dL (6.3-8.2)
[2024-12-16] MEDS: SODIUM CHLORIDE 500 MG TABLET PO ×2 (08:50→12:39)
[2024-12-16] MEDS: PANTOPRAZOLE 40 MG TABLET PO (08:50)
[2024-12-16] MEDS: APIXABAN 5 MG TABLET PO (08:50)
--- NOTE | 2024-12-16 11:36 | PM.PNCARD ---
Progress Note: A&P Assessment and Plan (1) Atrial fibrillation: Code(s): I48.91 - Unspecified atrial fibrillation Status: Chronic Plan 79-year-old man with significant interstitial lung disease and chronic/persistent atrial fibrillation. Systemic anticoagulation is in place with apixaban. He has enough AV node dysfunction where it does not appear that he requires anything for rate control. His heart rates are not excessively fast particularly considering his concurrent respiratory difficulties with a pulmonary fibrosis. Because of significant pauses that were noted earlier in the hospitalization rate control drugs have been stopped. Was asked again to see this patient today to comment on rate control. He currently does not require any medication to slow his atrial fibrillation. The only medication he requires at this time is systemic anticoagulation. Rodrigo Gomez MD [facility] Subjective Date/time seen: Date of service: 12/16/24 11:36 Interval history: No acute events Telemetry atrial fibrillation rate controlled 80s with intermittent pauses up to 7.5 seconds 1 episode of symptomatic bradycardia yesterday with near syncope 12/16/2024 patient is comfortable offers no cardiovascular complaints. He is in persistent atrial fibrillation with heart rate between 80 and 110. No symptoms of this. Rate control medications have been on hold for a while. Systemic anticoagulation with apixaban is in place. Exam Const: General: comfortable, no acute distress, alert and awake Orientation/consciousness: patient oriented x3 HENMT: Head: normal to inspection Eyes: General: appearance normal, both eyes and all related structures Pupils: Equal, round and reactive pupils present Neck: Neck: normal visual inspection, supple and no JVD Carotids: normal carotid upstroke Resp: Auscultation: crackles and diminished lung sounds Cardio: Rate: regular rate Rhythm: abnormal rhythm irregularly irregular Heart sounds: S1 normal heart sound present, S2 normal heart sound present and no murmurs GI: Auscultation: normal bowel sounds Skin: General skin exam: normal color Neuro: General: patient oriented x3 Cranial nerves: Yes Equal, round and reactive pupils present Extrem: General: normal to inspection Psych: Appearance: grossly normal Mental Status: mental status grossly normal Objective Data Vital Signs Vital Signs: Vital Signs - 24 hr 12/15/24 11:48 12/15/24 12:00 12/15/24 12:00 Temperature 36.6 C Pulse Rate 78 110 H Respiratory Rate 22 H Blood Pressure 138/82 Pulse Oximetry 98 94 Oxygen Delivery High Flow Nasal Cannula Oxygen Flow Rate 2 12/15/24 14:00 12/15/24 16:00 12/15/24 16:00 Temperature 36.9 C Pulse Rate 98 102 H Respiratory Rate 22 H Blood Pressure 110/48 L Pulse Oximetry 97 96 Oxygen Delivery High Flow Nasal Cannula Oxygen Flow Rate 2 12/15/24 16:00 12/15/24 18:00 12/15/24 19:58 Temperature Pulse Rate 90 108 H 108 H Respiratory Rate 22 H Blood Pressure Pulse Oximetry 96 Oxygen Delivery High Flow Nasal Cannula Oxygen Flow Rate 2 12/15/24 20:00 12/15/24 20:03 12/15/24 22:00 Temperature 36.7 C Pulse Rate 105 H 102 H 91 Respiratory Rate 20 Blood Pressure 119/61 Pulse Oximetry 95 Oxygen Delivery Oxygen Flow Rate 12/15/24 23:59 12/16/24 00:00 12/16/24 00:25 Temperature 36.8 C Pulse Rate 104 H 90 104 H Respiratory Rate 20 20 Blood Pressure 104/58 L Pulse Oximetry 94 94 Oxygen Delivery High Flow Nasal Cannula Oxygen Flow Rate 2 12/16/24 02:00 12/16/24 04:00 12/16/24 04:08 Temperature 36.6 C Pulse Rate 99 97 97 Respiratory Rate 22 H Blood Pressure 106/57 L Pulse Oximetry 94 Oxygen Delivery Oxygen Flow Rate 12/16/24 04:40 12/16/24 06:00 12/16/24 07:26 Temperature 36.6 C Pulse Rate 97 105 H 113 H Respiratory Rate 22 H 18 Blood Pressure 106/51 L Pulse Oximetry 94 94 Oxygen Delivery High Flow Nasal Cannula Oxygen Flow Rate 2 12/16/24 08:00 Temperature Pulse Rate 117 H Respiratory Rate Blood Pressure Pulse Oximetry Oxygen Delivery Oxygen Flow Rate Intake/Output Intake/Output: Intake & Output 12/13/24 12/14/24 12/15/24 12/16/24 23:59 23:59 23:59 23:59 Intake Total 2396 1640 1630 790 Output Total 3050 1400 1600 1000 Balance -654 240 30 -210 Meds/Results Medications: Active Medications Generic Name Dose Route Start Last Admin Trade Name Freq PRN Reason Stop Dose Admin Acetaminophen 650 mg 12/04/24 20:38 12/15/24 09:45 Acetaminophen 325 Mg Tablet PO 650 mg Q6H PRN Administration fever or pain 1-3 Apixaban 5 mg 12/13/24 09:35 12/16/24 08:50 Apixaban 5 Mg Tablet PO 5 mg Q12HR HAJA Administration Atorvastatin Calcium 10 mg 12/04/24 21:00 12/15/24 20:53 Atorvastatin 10 Mg Tablet PO 10 mg HS HAJA Administration Benzonatate 100 mg 12/04/24 20:38 Benzonatate 100 Mg Capsule PO Q6H PRN cough Bisacodyl 10 mg 12/04/24 20:38 Bisacodyl 10 Mg Suppository RECTAL DAILY PRN constipation Dextrose 12.5 gm 12/04/24 20:40 Dextrose 50% 25 Gm/50 Ml Syringe IV PUSH PRN PRN Hypoglycemia Protocol Fluticasone Propionate 1 spray 12/04/24 20:38 Fluticasone Propionate 0.05% Na Spr 16 Gm Btl (*Bkc) NASAL DAILY PRN allergy symptoms Glucagon 1 mg 12/04/24 20:40 Glucagon For Inj 1 Mg Vial IM PRN PRN Hypoglycemia Protocol Glucose 15 gm 12/04/24 20:40 Glucose Oral Gel 15 Gm Of Glucse In 37.5 Gm Tube PO PRN PRN Hypoglycemia Protocol Dextrose 1,000 mls @ 100 mls/hr 12/04/24 20:40 Dextrose 5% 1,000 Ml IVPB PRN PRN Hypoglycemia Protocol Insulin Aspart 3 - 6 units 12/08/24 11:47 12/16/24 08:51 Insulin Aspart (*Bkc) 100 Units/Ml SUB-Q Not Given TIDWM HAJA Protocol Insulin Aspart 3 - 6 units 12/08/24 21:00 12/15/24 20:52 Insulin Aspart (*Bkc) 100 Units/Ml SUB-Q 4 units HS HAJA Administration Protocol Insulin Glargine 20 units 12/05/24 09:00 12/15/24 09:55 Insulin Glargine (*Bkc) 100 Units/Ml SUB-Q 20 units DAILY HAJA Administration Magnesium Hydroxide 30 ml 12/04/24 20:38 Magnesium Hydroxide Susp 30 Ml Udc PO HS PRN constipation Melatonin 5 mg 12/04/24 21:00 12/15/24 20:53 Melatonin 5 Mg Tablet PO 5 mg HS HAJA Administration Pantoprazole Sodium 40 mg 12/05/24 21:10 12/16/24 08:50 Pantoprazole 40 Mg Tablet PO 40 mg Q12HR HAJA Administration Polyethylene Glycol 17 gm 12/04/24 20:38 Polyethylene Glycol 3350 17 Gm Powd.Pack PO BID PRN constipation Prednisone 60 mg 12/13/24 11:50 12/16/24 08:49 Prednisone 20 Mg Tablet PO 12/18/24 11:00 60 mg DAILY@0800 HAJA Administration Sodium Chloride 500 mg 12/14/24 13:00 12/16/24 08:50 Sodium Chloride 500 Mg Tablet PO 500 mg TID HAJA Administration Tamsulosin HCl 0.4 mg 12/04/24 21:00 12/15/24 20:53 Tamsulosin Hcl 0.4 Mg Capsule PO 0.4 mg HS HAJA Administration Radiology Results: ITS Impressions Chest CT 12/12/24 14:13 IMPRESSION: 1. Severe peripheral and lower lung predominant UIP pattern chronic interstitial lung disease with interval improvement in prior superimposed pulmonary edema and/or pneumonia. 2. Improvement in prior likely reactive mediastinal lymphadenopathy. 3. Unchanged pleural thickening with some scattered calcified pleural plaques in the right hemithorax, likely sequela of chronic exudative effusion with possible residual very small right pleural effusion. 4. Cardia megaly and enlargement of the central pulmonary arteries, the latter consistent with pulmonary arterial hypertension likely related to the chronic interstitial lung disease. Chest X-Ray 12/15/24 15:13 Impression: 1: Unchanged mixed bilateral interstitial and airspace disease mid and lower lungs. Differential diagnosis includes pneumonia, edema and/or interstitial fibrosis. Labs Labs: Laboratory Results - last 24 hr 12/13/24 12/15/24 12/15/24 03:34 11:45 11:56 WBC RBC Hgb Hct MCV MCH MCHC RDW Plt Count MPV Immature Gran % (Auto) Neut % (Auto) Lymph % (Auto) [place] % (Auto) Eos % (Auto) Baso % (Auto) Lymph # (Auto) [place] # (Auto) Eos # (Auto) Baso # (Auto) Abs Immat Gran (auto) Absolute Neuts (auto) Absolute Nucleated RBC Nucleated RBC % Sodium 126 L Potassium 4.7 Chloride 92 L Carbon Dioxide 29 Anion Gap 5 BUN 30 H Creatinine 1.10 Estim Creat Clear Calc 51 Estimated GFR > 60 Glucose 241 H POC Capillary Glucose 265 H Lactic Acid Calcium 7.7 L Magnesium Total Bilirubin AST ALT Alkaline Phosphatase Total Protein Albumin Ur Random Sodium c-ANCA Antibody <1:20 Atypical p-ANCA <1:20 p-ANCA Antibody 1:640 H 12/15/24 12/15/24 12/15/24 12:52 15:24 16:22 WBC RBC Hgb Hct MCV MCH MCHC RDW Plt Count MPV Immature Gran % (Auto) Neut % (Auto) Lymph % (Auto) [place] % (Auto) Eos % (Auto) Baso % (Auto) Lymph # (Auto) [place] # (Auto) Eos # (Auto) Baso # (Auto) Abs Immat Gran (auto) Absolute Neuts (auto) Absolute Nucleated RBC Nucleated RBC % Sodium Potassium Chloride Carbon Dioxide Anion Gap BUN Creatinine Estim Creat Clear Calc Estimated GFR Glucose POC Capillary Glucose 232 H Lactic Acid 2.2 H Calcium Magnesium Total Bilirubin AST ALT Alkaline Phosphatase Total Protein Albumin Ur Random Sodium 91 c-ANCA Antibody Atypical p-ANCA p-ANCA Antibody 12/15/24 12/15/24 12/16/24 19:53 20:09 03:59 WBC 9.8 RBC 3.43 L Hgb 9.8 L Hct 29.2 L MCV 85.1 MCH 28.6 MCHC 33.6 RDW 16.3 H Plt Count 162 MPV 9.0 Immature Gran % (Auto) 5.8 H Neut % (Auto) 61.8 Lymph % (Auto) 25.2 [place] % (Auto) 6.7 Eos % (Auto) 0.2 Baso % (Auto) 0.3 Lymph # (Auto) 2.47 [place] # (Auto) 0.7 H Eos # (Auto) 0.0 Baso # (Auto) 0.0 Abs Immat Gran (auto) 0.57 H Absolute Neuts (auto) 6.1 Absolute Nucleated RBC 0.000 Nucleated RBC % 0.0 Sodium 129 L Potassium 4.0 Chloride 96 L Carbon Dioxide 30 Anion Gap 3 L BUN 27 H Creatinine 1.00 Estim Creat Clear Calc 56 Estimated GFR > 60 Glucose 116 H POC Capillary Glucose 275 H Lactic Acid 1.2 Calcium 7.4 L Magnesium 2.0 Total Bilirubin 0.5 AST 22 ALT 28 Alkaline Phosphatase 70 Total Protein 4.8 L Albumin 2.2 L Ur Random Sodium c-ANCA Antibody Atypical p-ANCA p-ANCA Antibody 12/16/24 12/16/24 07:31 11:25 WBC RBC Hgb Hct MCV MCH MCHC RDW Plt Count MPV Immature Gran % (Auto) Neut % (Auto) Lymph % (Auto) [place] % (Auto) Eos % (Auto) Baso % (Auto) Lymph # (Auto) [place] # (Auto) Eos # (Auto) Baso # (Auto) Abs Immat Gran (auto) Absolute Neuts (auto) Absolute Nucleated RBC Nucleated RBC % Sodium Potassium Chloride Carbon Dioxide Anion Gap BUN Creatinine Estim Creat Clear Calc Estimated GFR Glucose POC Capillary Glucose 79 240 H Lactic Acid Calcium Magnesium Total Bilirubin AST ALT Alkaline Phosphatase Total Protein Albumin Ur Random Sodium c-ANCA Antibody Atypical p-ANCA p-ANCA Antibody
--- NOTE | 2024-12-16 12:09 | PM.IMPN ---
Progress Note: A&P Assessment and Plan (1) Hypotension: Code(s): I95.9 - Hypotension, unspecified Status: Acute (2) Dyspnea: Code(s): R06.00 - Dyspnea, unspecified Status: Acute (3) Hyponatremia: Code(s): E87.1 - Hypo-osmolality and hyponatremia Status: Acute (4) Impaired skin integrity: Code(s): R23.9 - Unspecified skin changes Status: Acute (5) Interstitial lung disease: Code(s): J84.9 - Interstitial pulmonary disease, unspecified Status: Chronic (6) Atrial fibrillation: Code(s): I48.91 - Unspecified atrial fibrillation Status: Chronic Plan ILD most likely 2/2 COVID infection on [address] Chest evaluated Now on prednisone 60mg po today per Pulm, s/p IV steroid TATIANA, ANCA, MyoMarker and aldolase Overnight oximetry failed due to equipment malfunction will repeat tonight Pulmonology recommendations: Prednisone 60 mg PO Q day through 12/18, then 50 mg PO Q day for 7 days, then 40 mg PO Q day for 7 days, then 30 mg PO Q day X 7 days, then prednisone 20 mg PO Q day with repeat chest Xray. Septra DS 1 Tab PO thursday, thursday and thursday Calcium 1000 mg PO Q day Vitamin D 800 IU Q day Oxygen at rest and with activity per Emily protocol Oxygen at night per Emily protocol Follow up in pulmonary clinic in 3-4 weeks. Paroxysmal Afib mild tachycardia Cardiology recommended holding Propafenone, digoxin, Metoprolol and Diltiazem continue Eliquis ECHO showed EF 70% s/p Digoxin immune CESAR reconsulted cardiology and re-evaluated and recommending holding all rate control meds and continue Eliquis Hyponatremia Improving, Na 129 on salt tablets, fluid restriction and Lasix monitor DVT prophylaxis on Eliquis Code status full code discussed with the patient again. Awaiting placement Subjective Date/time seen: 12/16/24 12:09 Interval history: COmfortable at bedside awaitng placement Review of Systems Review of Systems: All systems reviewed & are unremarkable except as noted in HPI and below Exam Narrative: Patient is comfortable, NAD HEENT: eyes are clear and none icteric LUNGS: Bilateral fair air entry with harsh breath sounds HEART: RR S1S2 ABD: BS+, Soft and nontender Lower extremities: no edema SKIN: nonjaundiced Neuro: grossly intact. Const: General: comfortable and no acute distress Other: Elderly male pt lying in bed at this time in no acute distress. HENMT: Face/Nose/Sinus: Normal nares present Mouth: Yes moist mucous membranes Eyes: General: appearance normal, both eyes and all related structures Neck: Neck: supple and no JVD Lymphatic: lymphadenopathy not noted Chest: Other: Non-tender Resp: Effort & Inspection: normal respiratory effort Auscultation: rhonchi lower bilaterally (coarse in bases.) Cardio: Rate: tachycardic Rhythm: regular rhythm Heart sounds: no gallops, no murmurs and no rubs GI: Auscultation: normal bowel sounds Skin: General skin exam: rashes (Red, purpural rash in a band around the abdomen, back and the sides ) and wounds noted (coccyx stage 2) Rashes: rashes noted (Red, purpural rash in a band around the abdomen, back and the sides ) Wounds: wounds noted (coccyx stage 2) Other: Rash is in a location where a depends or an adult brief would sit on his skin. Pt acknowledges that he does wear a brief at the [facility]. Neuro: Speech: normal speech Motor exam (neuro): 5/5 motor strength present throughout Sensory Exam: normal sensation Other: No focal deficit. Extrem: General: no edema and no pedal edema Other: No swelling present. FROM of extremities without deficit. Psych: Mental Status: mental status grossly normal Affect: normal affect Objective Data Vital Signs Vital Signs: Vital Signs - 24 hr 12/15/24 14:00 12/15/24 16:00 12/15/24 16:00 Temperature 98.4 F Pulse Rate 98 102 H Respiratory Rate 22 H Blood Pressure 110/48 L Pulse Oximetry 97 96 Oxygen Delivery High Flow Nasal Cannula Oxygen Flow Rate 2 12/15/24 16:00 12/15/24 18:00 12/15/24 19:58 Temperature Pulse Rate 90 108 H 108 H Respiratory Rate 22 H Blood Pressure Pulse Oximetry 96 Oxygen Delivery High Flow Nasal Cannula Oxygen Flow Rate 2 12/15/24 20:00 12/15/24 20:03 12/15/24 22:00 Temperature 98.1 F Pulse Rate 105 H 102 H 91 Respiratory Rate 20 Blood Pressure 119/61 Pulse Oximetry 95 Oxygen Delivery Oxygen Flow Rate 12/15/24 23:59 12/16/24 00:00 12/16/24 00:25 Temperature 98.2 F Pulse Rate 104 H 90 104 H Respiratory Rate 20 20 Blood Pressure 104/58 L Pulse Oximetry 94 94 Oxygen Delivery High Flow Nasal Cannula Oxygen Flow Rate 2 12/16/24 02:00 12/16/24 04:00 12/16/24 04:08 Temperature 97.9 F Pulse Rate 99 97 97 Respiratory Rate 22 H Blood Pressure 106/57 L Pulse Oximetry 94 Oxygen Delivery Oxygen Flow Rate 12/16/24 04:40 12/16/24 06:00 12/16/24 07:26 Temperature 97.8 F Pulse Rate 97 105 H 113 H Respiratory Rate 22 H 18 Blood Pressure 106/51 L Pulse Oximetry 94 94 Oxygen Delivery High Flow Nasal Cannula Oxygen Flow Rate 2 12/16/24 08:00 12/16/24 11:52 Temperature 97.6 F Pulse Rate 117 H 95 Respiratory Rate 22 H Blood Pressure 90/40 L Pulse Oximetry 100 Oxygen Delivery Oxygen Flow Rate Intake/Output Intake/Output: Intake & Output 12/13/24 12/14/24 12/15/24 12/16/24 23:59 23:59 23:59 23:59 Intake Total 2396 1640 1630 790 Output Total 3050 1400 1600 1000 Balance -654 240 30 -210 Meds/Results Medications: Active Medications Generic Name Dose Route Start Last Admin Trade Name Freq PRN Reason Stop Dose Admin Acetaminophen 650 mg 12/04/24 20:38 12/15/24 09:45 Acetaminophen 325 Mg Tablet PO 650 mg Q6H PRN Administration fever or pain 1-3 Apixaban 5 mg 12/13/24 09:35 12/16/24 08:50 Apixaban 5 Mg Tablet PO 5 mg Q12HR HAJA Administration Atorvastatin Calcium 10 mg 12/04/24 21:00 12/15/24 20:53 Atorvastatin 10 Mg Tablet PO 10 mg HS HAJA Administration Benzonatate 100 mg 12/04/24 20:38 Benzonatate 100 Mg Capsule PO Q6H PRN cough Bisacodyl 10 mg 12/04/24 20:38 Bisacodyl 10 Mg Suppository RECTAL DAILY PRN constipation Dextrose 12.5 gm 12/04/24 20:40 Dextrose 50% 25 Gm/50 Ml Syringe IV PUSH PRN PRN Hypoglycemia Protocol Fluticasone Propionate 1 spray 12/04/24 20:38 Fluticasone Propionate 0.05% Na Spr 16 Gm Btl (*Bkc) NASAL DAILY PRN allergy symptoms Glucagon 1 mg 12/04/24 20:40 Glucagon For Inj 1 Mg Vial IM PRN PRN Hypoglycemia Protocol Glucose 15 gm 12/04/24 20:40 Glucose Oral Gel 15 Gm Of Glucse In 37.5 Gm Tube PO PRN PRN Hypoglycemia Protocol Dextrose 1,000 mls @ 100 mls/hr 12/04/24 20:40 Dextrose 5% 1,000 Ml IVPB PRN PRN Hypoglycemia Protocol Insulin Aspart 3 - 6 units 12/08/24 11:47 12/16/24 08:51 Insulin Aspart (*Bkc) 100 Units/Ml SUB-Q Not Given TIDWM HAJA Protocol Insulin Aspart 3 - 6 units 12/08/24 21:00 12/15/24 20:52 Insulin Aspart (*Bkc) 100 Units/Ml SUB-Q 4 units HS HAJA Administration Protocol Insulin Glargine 20 units 12/05/24 09:00 12/15/24 09:55 Insulin Glargine (*Bkc) 100 Units/Ml SUB-Q 20 units DAILY HAJA Administration Magnesium Hydroxide 30 ml 12/04/24 20:38 Magnesium Hydroxide Susp 30 Ml Udc PO HS PRN constipation Melatonin 5 mg 12/04/24 21:00 12/15/24 20:53 Melatonin 5 Mg Tablet PO 5 mg HS HAJA Administration Pantoprazole Sodium 40 mg 12/05/24 21:10 12/16/24 08:50 Pantoprazole 40 Mg Tablet PO 40 mg Q12HR HAJA Administration Polyethylene Glycol 17 gm 12/04/24 20:38 Polyethylene Glycol 3350 17 Gm Powd.Pack PO BID PRN constipation Prednisone 60 mg 12/13/24 11:50 12/16/24 08:49 Prednisone 20 Mg Tablet PO 12/18/24 11:00 60 mg DAILY@0800 HAJA Administration Sodium Chloride 500 mg 12/14/24 13:00 12/16/24 08:50 Sodium Chloride 500 Mg Tablet PO 500 mg TID HAJA Administration Tamsulosin HCl 0.4 mg 12/04/24 21:00 12/15/24 20:53 Tamsulosin Hcl 0.4 Mg Capsule PO 0.4 mg HS HAJA Administration Radiology Results: ITS Impressions Chest CT 12/12/24 14:13 IMPRESSION: 1. Severe peripheral and lower lung predominant UIP pattern chronic interstitial lung disease with interval improvement in prior superimposed pulmonary edema and/or pneumonia. 2. Improvement in prior likely reactive mediastinal lymphadenopathy. 3. Unchanged pleural thickening with some scattered calcified pleural plaques in the right hemithorax, likely sequela of chronic exudative effusion with possible residual very small right pleural effusion. 4. Cardia megaly and enlargement of the central pulmonary arteries, the latter consistent with pulmonary arterial hypertension likely related to the chronic interstitial lung disease. Chest X-Ray 12/15/24 15:13 Impression: 1: Unchanged mixed bilateral interstitial and airspace disease mid and lower lungs. Differential diagnosis includes pneumonia, edema and/or interstitial fibrosis. Labs Labs: Laboratory Results - last 24 hr 12/13/24 12/15/24 12/15/24 03:34 11:45 11:56 WBC RBC Hgb Hct MCV MCH MCHC RDW Plt Count MPV Immature Gran % (Auto) Neut % (Auto) Lymph % (Auto) Arthur % (Auto) Eos % (Auto) Baso % (Auto) Lymph # (Auto) [place] # (Auto) Eos # (Auto) Baso # (Auto) Abs Immat Gran (auto) Absolute Neuts (auto) Absolute Nucleated RBC Nucleated RBC % Sodium 126 L Potassium 4.7 Chloride 92 L Carbon Dioxide 29 Anion Gap 5 BUN 30 H Creatinine 1.10 Estim Creat Clear Calc 51 Estimated GFR > 60 Glucose 241 H POC Capillary Glucose 265 H Lactic Acid Calcium 7.7 L Magnesium Total Bilirubin AST ALT Alkaline Phosphatase Total Protein Albumin Ur Random Sodium c-ANCA Antibody <1:20 Atypical p-ANCA <1:20 p-ANCA Antibody 1:640 H 12/15/24 12/15/24 12/15/24 12:52 15:24 16:22 WBC RBC Hgb Hct MCV MCH MCHC RDW Plt Count MPV Immature Gran % (Auto) Neut % (Auto) Lymph % (Auto) Arthur % (Auto) Eos % (Auto) Baso % (Auto) Lymph # (Auto) Arthur # (Auto) Eos # (Auto) Baso # (Auto) Abs Immat Gran (auto) Absolute Neuts (auto) Absolute Nucleated RBC Nucleated RBC % Sodium Potassium Chloride Carbon Dioxide Anion Gap BUN Creatinine Estim Creat Clear Calc Estimated GFR Glucose POC Capillary Glucose 232 H Lactic Acid 2.2 H Calcium Magnesium Total Bilirubin AST ALT Alkaline Phosphatase Total Protein Albumin Ur Random Sodium 91 c-ANCA Antibody Atypical p-ANCA p-ANCA Antibody 12/15/24 12/15/24 12/16/24 19:53 20:09 03:59 WBC 9.8 RBC 3.43 L Hgb 9.8 L Hct 29.2 L MCV 85.1 MCH 28.6 MCHC 33.6 RDW 16.3 H Plt Count 162 MPV 9.0 Immature Gran % (Auto) 5.8 H Neut % (Auto) 61.8 Lymph % (Auto) 25.2 Arthur % (Auto) 6.7 Eos % (Auto) 0.2 Baso % (Auto) 0.3 Lymph # (Auto) 2.47 Arthur # (Auto) 0.7 H Eos # (Auto) 0.0 Baso # (Auto) 0.0 Abs Immat Gran (auto) 0.57 H Absolute Neuts (auto) 6.1 Absolute Nucleated RBC 0.000 Nucleated RBC % 0.0 Sodium 129 L Potassium 4.0 Chloride 96 L Carbon Dioxide 30 Anion Gap 3 L BUN 27 H Creatinine 1.00 Estim Creat Clear Calc 56 Estimated GFR > 60 Glucose 116 H POC Capillary Glucose 275 H Lactic Acid 1.2 Calcium 7.4 L Magnesium 2.0 Total Bilirubin 0.5 AST 22 ALT 28 Alkaline Phosphatase 70 Total Protein 4.8 L Albumin 2.2 L Ur Random Sodium c-ANCA Antibody Atypical p-ANCA p-ANCA Antibody 12/16/24 12/16/24 07:31 11:25 WBC RBC Hgb Hct MCV MCH MCHC RDW Plt Count MPV Immature Gran % (Auto) Neut % (Auto) Lymph % (Auto) Arthur % (Auto) Eos % (Auto) Baso % (Auto) Lymph # (Auto) Arthur # (Auto) Eos # (Auto) Baso # (Auto) Abs Immat Gran (auto) Absolute Neuts (auto) Absolute Nucleated RBC Nucleated RBC % Sodium Potassium Chloride Carbon Dioxide Anion Gap BUN Creatinine Estim Creat Clear Calc Estimated GFR Glucose POC Capillary Glucose 79 240 H Lactic Acid Calcium Magnesium Total Bilirubin AST ALT Alkaline Phosphatase Total Protein Albumin Ur Random Sodium c-ANCA Antibody Atypical p-ANCA p-ANCA Antibody Quality VTE Prophylaxis VTE prophylaxis: pharmacologic ordered
[2024-12-16] MEDS: INSULIN GLARGINE (*BKC) 100 UNITS/ML 20 UNITS SUB-Q (12:40)
[2024-12-16] MEDS: INSULIN ASPART (*BKC) 100 UNITS/ML SUB-Q (12:41)
--- NOTE | 2024-12-16 16:07 | P.DS_ITS ---
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 He was recently hospitalized at [facility] [place], then [place], and transferred to [facility] for rehabilitation. He was found hypoxic at the [facility]pc (on 2L O2), requiring escalation to BiPAP in the ER, then stabilized on 5-6L O2. He was also noted to have hypotension and persistent atrial fibrillation with variable rates. His course was complicated by hyponatremia, impaired skin integrity (coccyx and buttocks wounds), and ongoing dyspnea. Pulmonology managed his ILD exacerbation with high-dose IV steroids, then transitioned to a prednisone taper. He was diuresed for possible pulmonary edema, with improvement in oxygenation and symptoms. Cardiology was consulted for atrial fibrillation; all rate control agents (metoprolol, diltiazem, digoxin, propafenone) were held due to hypotension and bradyarrhythmia. He remained on apixaban for anticoagulation. Wound care was consulted for pressure injuries. He improved clinically, with stable oxygenation on 2-5L O2 at rest, and was discharged back to [facility] for ongoing rehabilitation and care. ASSESSMENT & PLAN 1. Hypotension ICD-10: I95.9 * BP ranged 87-109/48-91, likely multifactorial (deconditioning, diuresis, medications). * All antihypertensive and rate control agents held. * Continue telemetry monitoring. * If atrial fibrillation with RVR recurs, consider amiodarone. * Cardiology follow-up recommended. 2. Dyspnea ICD-10: R06.00 * Acute on chronic, related to ILD and recent decrease in baseline O2 at [facility]. * Continue baseline 5-6L O2 via nasal cannula, titrate to maintain SpO2 90-94%. * Duonebs q6h scheduled, albuterol nebs PRN. * Continue to monitor oxygen saturation. * Pulmonology follow-up arranged. 3. Hyponatremia ICD-10: E87.1 * Sodium smita 123, improved to 129. * Managed with gentle IV hydration, now resolving with salt tablets, fluid restriction, and Lasix. * Continue to monitor sodium and fluid status. * Discharged on NaCl 500mg tid, and Lasix 20mg daily 4. Impaired Skin Integrity ICD-10: R23.9 * Pressure injuries to coccyx and buttocks. * Wound care consulted; offload pressure, wound care as directed. * For abdominal rash, avoid adult briefs as possible. * continue wound care at [facility] 5. Interstitial Lung Disease (Post-COVID Pulmonary Fibrosis) ICD-10: J84.9 * Managed with high-dose IV steroids, now on prednisone taper: * 60 mg PO daily through 12/18 * 50 mg PO daily for 7 days * 40 mg PO daily for 7 days * 30 mg PO daily for 7 days * 20 mg PO daily, then repeat chest X-ray * Septra DS 1 tab PO // for PCP prophylaxis * Calcium 1000 mg PO daily, Vitamin D 800 IU daily * Oxygen at rest and with activity per [facility] protocol * Overnight oximetry on 2L showed adequate oxygenation * Pulmonology follow-up in 3-4 weeks 6. Atrial Fibrillation ICD-10: I48.91 * Persistent atrial fibrillation, rate controlled (HR 80-110), with intermittent pauses up to 7.5 seconds * All rate control agents (metoprolol, diltiazem, digoxin, propafenone) discontinued due to hypotension and bradyarrhythmia * Continue apixaban for anticoagulation * Monitor for recurrent bradyarrhythmia; if recurrent, may require pacemaker * Cardiology follow-up recommended DISCHARGE MEDICATIONS: * Prednisone (see taper above) * Septra DS 1 tab PO M/W/F * Calcium 1000 mg PO daily * Vitamin D 800 IU PO daily * Apixaban 5 mg PO BID * Duonebs q6h scheduled, albuterol nebs PRN * Oxygen at rest and with activity per SNF protocol (2-6L NC as needed) * Wound care as directed * Salt tablets and fluid restriction as per sodium management * lasix FOLLOW-UP: * Pulmonology clinic in 3-4 weeks * Cardiology for atrial fibrillation and possible pacemaker evaluation * Wound care * Repeat chest X-ray after completion of steroid taper * Monitor sodium and renal function * F/u wt PCP in 3-5 days Time Spent with Patient Time attestation: Total time spent providing and/or coordinating discharge services: DS: Data Data Completed and Pending Labs on day of discharge: Labs from last 24 hours 12/16/24 12/16/24 12/16/24 11:25 07:31 03:59 WBC 9.8 RBC 3.43 L Hgb 9.8 L Hct 29.2 L MCV 85.1 MCH 28.6 MCHC 33.6 RDW 16.3 H Plt Count 162 MPV 9.0 Immature Gran % (Auto) 5.8 H Neut % (Auto) 61.8 Lymph % (Auto) 25.2 Gibson % (Auto) 6.7 Eos % (Auto) 0.2 Baso % (Auto) 0.3 Lymph # (Auto) 2.47 Gibson # (Auto) 0.7 H Eos # (Auto) 0.0 Baso # (Auto) 0.0 Abs Immat Gran (auto) 0.57 H Absolute Neuts (auto) 6.1 Absolute Nucleated RBC 0.000 Nucleated RBC % 0.0 Sodium 129 L Potassium 4.0 Chloride 96 L Carbon Dioxide 30 Anion Gap 3 L BUN 27 H Creatinine 1.00 Estim Creat Clear Calc 56 Estimated GFR > 60 Glucose 116 H POC Capillary Glucose 240 H 79 Lactic Acid Calcium 7.4 L Magnesium 2.0 Total Bilirubin 0.5 AST 22 ALT 28 Alkaline Phosphatase 70 Total Protein 4.8 L Albumin 2.2 L 12/15/24 12/15/24 12/15/24 20:09 19:53 16:22 WBC RBC Hgb Hct MCV MCH MCHC RDW Plt Count MPV Immature Gran % (Auto) Neut % (Auto) Lymph % (Auto) Gibson % (Auto) Eos % (Auto) Baso % (Auto) Lymph # (Auto) Gibson # (Auto) Eos # (Auto) Baso # (Auto) Abs Immat Gran (auto) Absolute Neuts (auto) Absolute Nucleated RBC Nucleated RBC % Sodium Potassium Chloride Carbon Dioxide Anion Gap BUN Creatinine Estim Creat Clear Calc Estimated GFR Glucose POC Capillary Glucose 275 H 232 H Lactic Acid 1.2 Calcium Magnesium Total Bilirubin AST ALT Alkaline Phosphatase Total Protein Albumin Discharge Plan Discharge Attending physician on discharge: Oh Cabello Consulting providers: Kale Hill; Oh Cabello; Sera Muhammad; Huong Rose; Joo Olivo; Randal Pham Discharging Clinician: Oh Cabello Anticipated Discharge Date/Time: 12/16/24 15:52 Patient Disposition: SNF Activity: as tolerated Diet: heart healthy Patient Instructions: Apixaban (By mouth), A-fib (Atrial Fibrillation) (DC) Patient Language: Persian Stand Alone Forms: General Discharge Information Follow-up/Referrals: Sera Muhammad MD [Physician] - (F/u with pulmonology as instructed ) PHYSICIAN NOT ON STAFF,NONSTAFF [Primary Care Provider] - (F/u with PCP in 3-5 days ) Joo Olivo MD [Physician] - (F/u with cardiology as instructed ) Discharge Medications: New furosemide [Lasix] 20 mg tablet 20 mg PO DAILY 14 Days Qty: 14 0RF cholecalciferol (vitamin D3) 25 mcg (1,000 unit) capsule 25 mcg PO DAILY Qty: 30 0RF sodium chloride 1,000 mg tablet,soluble 500 mg PO TID 14 Days Qty: 21 0RF calcium carbonate [Antacid Ultra Strength] 400 mg calcium (1,000 mg) tablet,chewable 800 mg PO DAILY 30 Days Qty: 60 0RF prednisone 10 mg Tablet 10 mg PO DIRECTED Qty: 110 0RF Rx Instructions: see taper instructions: Prednisone 60 mg PO Q day through 12/18, then 50 mg PO Q day for 7 days, then 40 mg PO Q day for 7 days, then 30 mg PO Q day X 7 days, then prednisone 20 mg PO Q day sulfamethoxazole-trimethoprim [Bactrim DS] 800-160 mg tablet 1 tablet PO 3XW 30 Days Qty: 13 0RF furosemide [Lasix] 20 mg tablet 20 mg PO DAILY 14 Days Qty: 14 0RF Continued Eliquis 5 mg tablet 5 mg PO Q12H atorvastatin 10 mg tablet 10 mg PO HS tamsulosin 0.4 mg capsule 0.4 mg PO HS melatonin 5 mg capsule 5 mg PO HS albuterol sulfate 2.5 mg/0.5 mL solution for nebulization 2.5 mg inhalation Q8H insulin lispro [Admelog U-100 Insulin lispro] 100 unit/mL solution 1 sliding scale dose subcut .before meals Patient Comments: SubQ before meals Rx Instructions: 151-200= 1 unit 201-250=2 units 251-300= 3 units 301-350= 4 units 351-400= 5 units pantoprazole [Protonix] 40 mg tablet,delayed release (DR/EC) 40 mg PO BID metformin 500 mg tablet 500 mg PO BID insulin glargine [Lantus U-100 Insulin] 100 unit/mL solution 20 unit subcut DAILY fluticasone propionate 50 mcg/actuation spray,suspension 1 spray INTRANASAL DAILY PRN (Reason: allergy symptoms) prednisone 20 mg tablet 20 mg PO DAILY Rx Instructions: days 11-21 of therapy albuterol sulfate 2.5 mg /3 mL (0.083 %) solution for nebulization 2.5 mg inhalation Q6H ondansetron HCl 4 mg tablet 4 mg PO Q6H PRN (Reason: nausea and vomiting) acetaminophen 325 mg capsule 650 mg PO Q6H PRN (Reason: fever or pain) polyethylene glycol 3350 [ClearLax] 17 gram/dose powder 17 g PO BID PRN (Reason: constipation) benzonatate 100 mg capsule 100 mg PO Q6H PRN (Reason: cough) magnesium hydroxide [Milk of Magnesia] 400 mg/5 mL suspension 30 ml PO HS PRN (Reason: constipation) bisacodyl 10 mg suppository 10 mg RECTAL DAILY PRN (Reason: constipation) Discontinued metoprolol tartrate 25 mg tablet 12.5 mg PO Q6H Rx Instructions: Hold for SBP less than 100 or Heart rate less than 60 propafenone 225 mg tablet 225 mg PO Q8H digoxin 250 mcg (0.25 mg) tablet 0.5 mg PO DAILY Date of admission: 12/04/24 14:41 Primary Care Provider: PHYSICIAN NOT ON STAFF,NONSTAFF Admitting Provider: Oh Cabello Attending physician on admission: Oh Cabello Condition: Serious
[2024-12-16 18:08] LABS: ANA by IFA Rfx Titer/Pattern Negative (.)
[2024-12-17 18:08] LABS: Osmolality, Urine 422 mOsmol/kg (.)
[2024-12-18 15:07] LABS: Osmolality, Serum 275 mOsmol/kg (280-301)
== END 2024-12-16 16:48 | DRG 314 ==
LOC: ANHED 08:11 → ANHIMU 14:16
PROVIDERS: Family Medicine; General Practice; Internal Medicine; Internal Medicine Critical Care Medicine; Internal Medicine Interventional Cardiology; Internal Medicine Pulmonary Disease; Nurse Practitioner Adult Health; Admitting Provider Internal Medicine; Emergency Provider Emergency Medicine; Visit Provider Internal Medicine
DX: I95.9 Hypotension, unspecified (principal); E43 Unspecified severe protein-calorie malnutrition; J96.21 Acute and chronic respiratory failure with hypoxia; E87.1 Hypo-osmolality and hyponatremia; I48.19 Other persistent atrial fibrillation; L98.418 Non-pressure chronic ulcer of buttock with other specified severity; J84.10 Pulmonary fibrosis, unspecified; E11.65 Type 2 diabetes mellitus with hyperglycemia; T38.0X5A Adverse effect of glucocorticoids and synthetic analogues, initial encounter; I27.20 Pulmonary hypertension, unspecified; I48.0 Paroxysmal atrial fibrillation; N40.0 Benign prostatic hyperplasia without lower urinary tract symptoms; R62.7 Adult failure to thrive; Z99.81 Dependence on supplemental oxygen; Z79.01 Long term (current) use of anticoagulants; Z79.4 Long term (current) use of insulin; Z79.84 Long term (current) use of oral hypoglycemic drugs; Z86.16 Personal history of COVID-19
CPT/HCPCS: 36415; 36600; 71045; 71250; 71260; 80048; 80053; 80162; 81001; 81003; 82010; 82085; 82103; 82104; 82550; 82805; 82948; 83036; 83605; 83735; 83880; 83930; 83935; 84145; 84300; 84443; 85018; 85025; 85027; 85610; 85730; 86037; 86038; 86200; 86331; 86430; 86606; 86609; 86671; 87040; 93005; 93306; 94002; 94640; 96360; 96361; 97110; 97162; 97165; 97530; 99285; A9270; G0378; J0616; J1162; J1163; J1815; J1938; J2919; J7030; J7120; J7512; Q9967

== ENCOUNTER 2025-01-04 12:20 | Outpatient (CLI) | payer MEDICARE, OTHER, SELFPAY ==
--- NOTE | ~2025-01-04 | XR_ITS ---
XR chest 2V 01/04/2025 13:00 Indication: Hypoxia Procedure: 2 view chest Comparison: Comparison to multiple prior studies sequentially, with oldest reviewed study dated 12/10/2024. Findings: Stable extensive mixed interstitial and airspace disease, consistent with chronic fibrosis. Possible small right effusion. Cannot exclude superimposed pneumonia. No pneumothorax. Impression: 1: Stable extensive mixed interstitial and airspace disease of the mid and lower lungs predominantly, consistent with chronic interstitial fibrosis with possible superimposed pneumonia. Clinically correlate. Reviewed, dictated and finalized at location O. Impression: 1: Stable extensive mixed interstitial and airspace disease of the mid and lowe r lungs predominantly, consistent with chronic interstitial fibrosis with possi ble superimposed pneumonia. Clinically correlate.
[2025-01-04 12:51] LABS: Hematocrit 34.2 % (42.0-52.0); Hemoglobin 10.9 g/dL (14.0-18.0); Immature Granulocyte Percent A 4.6 % (0-0.5); Lymphocytes Absolute Auto 1.83 K/mm3 (0.9-3.2); Mean Corpuscular HGB Conc 31.9 g/dl (32-36); Mean Corpuscular Hemoglobin 28.8 pg (26-34); Mean Corpuscular Volume 90.5 fl (80-100); Nucleated Red Blood Cells Absolute Auto 0.020 K/mm3 (0.0-0.012); Nucleated Red Blood Cells Perc 0.3 % (0.0-0.2); Platelet Count Result 196 k/mm3 (150-375); Red Blood Count 3.78 M/mm3 (4.6-6.20); White Blood Count 7.0 K/mm3 (4.5-10.0)
[2025-01-04 13:11] LABS: Alanine Aminotransferase 26 U/L (6-50); Albumin Level 3.2 g/dL (3.5-5.1); Alkaline Phosphatase 71 U/L (38-126); Anion Gap 9 mmol/L (4-12); Aspartate Amino Transferase 26 U/L (17-59); Bilirubin,Total 0.5 mg/dL (0.2-1.3); Blood Urea Nitrogen 23 mg/dL (9-20); Calcium 7.9 mg/dL (8.4-10.2); Carbon Dioxide 29 mmol/L (22-30); Chloride 97 mmol/L (98-107); Estimated Glomerular Filt Rate > 60; Glucose 245 mg/dL (65-110); Potassium 3.5 mmol/L (3.4-5.0); Sodium 135 mmol/L (137-145); Total Protein 6.1 g/dL (6.3-8.2)
[2025-01-04 13:17] LABS: Glucose Urine UA Negative (Negative); Leukocyte Esterase Ur Trace LEU/UL (Negative); Nitrate Urine Negative (Negative); Non Pathogenic Casts 0-2; Specific Grav Ur 1.010 (1.001-1.035)
[2025-01-04 13:34] LABS: Add Urine Microscopic? YES; Appearance Urine Cloudy (Clear)
== END 2025-01-04 12:21 | disposition home or self-care (01) ==
PROVIDERS: Visit Provider Internal Medicine Pulmonary Disease
DX: J84.9 Interstitial pulmonary disease, unspecified (principal); J44.9 Chronic obstructive pulmonary disease, unspecified; R76.8 Other specified abnormal immunological findings in serum; R91.8 Other nonspecific abnormal finding of lung field
CPT/HCPCS: 36415; 71046; 80053; 81001; 85025

== ENCOUNTER 2025-01-24 12:59 | Outpatient (CLI) | payer MEDICARE, OTHER, SELFPAY ==
--- NOTE | ~2025-01-24 | CT_ITS ---
EXAMINATION: CT chest high resolution wo id DATE: 01/24/2025 13:36 INDICATION: Interstitial pulmonary disease. TECHNIQUE: Computed tomography (CT) of the chest was performed without intravenous contrast. The dose-length product was 230.31 mGy-cm. Automated exposure control and iterative reconstruction technique were employed. COMPARISON: CT dated 12/12/2024 FINDINGS: There is mild mediastinal lymphadenopathy. Cardiomegaly. No significant pleural or pericardial effusion. There is splenomegaly. No significant change to course bilateral interstitial infiltrates with basilar preference and associated honeycombing, groundglass opacification and traction bronchiectasis. No pneumothorax. Central pulmonary arteries are enlarged consistent with pulmonary arterial hypertension. There is mild right pleural thickening with pleural calcifications unchanged. IMPRESSION: 1. Stable severe chronic interstitial lung disease with UIP pattern. 2: Mediastinal lymphadenopathy, likely reactive. 3: Splenomegaly. 4: Stable right pleural thickening with associated calcification, likely related to prior infection. Reviewed, dictated and finalized at location O. IMPRESSION: 1. Stable severe chronic interstitial lung disease with UIP pattern. 2: Mediastinal lymphadenopathy, likely reactive. 3: Splenomegaly. 4: Stable right pleural thickening with associated calcification, likely relate d to prior infection.
--- OUTSIDE RECORDS SUMMARY | 2025-01-24 03:24 | XMS_ITS ---
Author Organization [facility] Address [address] [place] [id number] Care Team Providers Care Structural Welder Name Role Phone MARIAMA ANDERSON Primary Care Provider [phone] REASON FOR VISIT chart prep Medications Medication SIG (Take, Route, Frequency, Duration) Notes Start Date End Date Status Fluticasone Propionate 93 MCG/ACT Exhaler Suspension spray (1 spray in each nostril) Nasally Twice a day; Duration: 30 days 01/20/2025 Active Mucinex DM 30-600 MG Tablet Extended Release 12 Hour 1 tablet twice a day x5 days and then p.r.n. Orally twice a day 01/20/2025 Active Admelog 100 UNIT/ML Solution as directed [...] as needed Orally every 6 hrs Active Benzonatate 100 MG Capsule 1 capsule as needed Orally every 6 hours Active Bactrim DS 800-160 MG Tablet 1 tablet Orally Three times a Week Thu, Thu, Thu Active Calcium Carbonate Antacid 400 MG Tablet Chewable 2 tablets Orally daily Active Bisacodyl 10 MG Suppository 1 suppositor y as needed Rectal Once a day Active Atorvastatin Calcium 10 MG Tablet 1 tablet Orally Once a day Active Fluticasone Propionate 50 MCG/ACT Suspension 1 spray in each nostril Nasally Once a day As needed Active Eliquis 5 MG Tablet 1 tablet Orally twic e a day Active Lasix 20 MG Tablet 1 tablet Orally Once a day Active Lantus 100 UNIT/ML Solution 20 units nig htly at bedtime Subcutaneous daily Active Melatonin 5 MG Tablet 1 tablet in the ev ening Orally Once a day Active Pantoprazole Sodium 40 MG Tablet Delayed Release 1 tablet Orally twice a day Active Ondansetron HCl 4 MG Tablet 1 tablet Orally every 6 hours As needed Active metFORMIN HCl 500 MG Tablet 1 tablet wit h a meal Orally twice a day Active MiraLax 17 GM/SCOOP Powder 1 gram mixed with 8 ounces of fluid Orally Once a day As needed Active Milk of Magnesia 400 MG/5ML Suspension 30 mL as needed Orally Once a day Active predniSONE 20 MG Tablet 1 tablet with fo od or milk Orally Once a day Active Lidocaine 5 % Patch 1 patch remove after 12 hours Externally Once a day Active Vitamin D (Cholecalciferol) 25 MCG (1000 UT) Capsule 1 capsule Orally Once a day Active Tamsulosin HCl 0.4 MG Capsule 1 capsule Orally Once a day Active Social History Tobacco Use: Social History Observation Description Date Details (start date - stop date) Never Smoker NA - NA Social History Tobacco Use: Social Info Question Answer Notes Tobacco Control (Standard) Tobacco use: Nonsmoker Encounters Encounter Location Date Provider Diagnosis [facility] [address] [place], [place] [id number] 01/24/2025 MARIAMA ANDERSON Plan Of Treatment Next Appt Details Provider Name:Yasmeen Matta , 01/26/2025 06:45:00 AM, [address] [place] [address], [address], Progress Notes * Sheri FOFANAOB:1945 (79 yo M)Acc No.[id number]:01/24/2025 Patient: Zack ROCK :1945 A ge:79 Y S ex:Male Address:[facility] [place], [address] Subjective: * Chief Complaints: * C pope prep * Surgical History: NO PREVIOUS SURGERIES Surgical History verified. * Family History: F ather: congestive heart failure. M other: cancer. F amily History Verified.. * Social History: T obacco Use: T obacco Control (Standard) T obacco use: N onsmoker. Social History Verified. * Medications: T akingLidocaine 5 % Patch [...] Tablet 1 tablet Orally Once a day Admelog 100 UNIT/ML Solution as [...] 1 tablet Orally Three times a Week Thu, Atorvastatin Calcium 10 MG Tablet 1 tablet Orally Once a day Taking Admelog 100 UNIT/ML Solution [...] in each nostril) Nasally Twice a day DiscontinuedArginaid - Packet as directed Orally 3 times a day Discontinued Arginaid - Packet as directed Orally 3 times a day * true * Date: Generated for Lawrence cortés/Barbara/Elijah on: 0 01/24/2025 02:40 PM CDT
--- OUTSIDE RECORDS SUMMARY | 2025-01-24 04:03 | XMS_ITS ---
Author Organization [facility] Address [address] [place] [id number] Care Team Providers Care Outside Contractor Sales Name Role Phone MARIAMA ANDERSON Primary Care Provider [phone] PaxtonElizabethYasmeen Unavailable [phone] Allergies No Known Allergies REASON FOR VISIT CHART PREP Medications Medication SIG (Take, Route, Frequency, Duration) Notes Start Date End Date Status Mucinex DM 30-600 MG Tablet Extended Release 12 Hour 1 tablet twice a day x5 days and then p.r.n. Orally twice a day 01/20/2025 Active Atorvastatin Calcium 10 MG Tablet 1 tablet Orally Once a day Active Admelog 100 UNIT/ML Solution [...] as needed Orally every 6 hrs Active Bactrim DS 800-160 MG Tablet 1 tablet Orally Three times a Week Thu, Thu, Thu Active Eliquis 5 MG Tablet 1 tablet Orally a day Active Calcium Carbonate Antacid 400 MG Tablet Chewable 2 tablets Orally daily Active Bisacodyl 10 MG Suppository 1 suppositor y as needed Rectal Once a day Active Benzonatate 100 MG Capsule 1 capsule as needed Orally every 6 hours Active Fluticasone Propionate 50 MCG/ACT Suspension 1 spray in each nostril Nasally Twice a day As needed Active Lasix 20 MG Tablet 1 tablet Orally Once a day Active Lantus 100 UNIT/ML Solution 20 units nig htly at bedtime Subcutaneous daily Active metFORMIN HCl 500 MG Tablet 1 tablet wit h a meal Orally twice a day Active Melatonin 5 MG Tablet 1 tablet in the ev ening Orally Once a day Active MiraLax 17 GM/SCOOP Powder 1 gram mixed with 8 ounces of fluid Orally Once a day As needed Active Milk of Magnesia 400 MG/5ML Suspension 30 mL as needed Orally Once a day Active Tamsulosin HCl 0.4 MG Capsule 1 capsule Orally Once a day Active Pantoprazole Sodium 40 MG Tablet Delayed Release 1 tablet Orally twice a day Active Ondansetron HCl 4 MG Tablet 1 tablet Orally every 6 hours As needed Active Ipratropium-Albuterol 0.5-2.5 (3) MG/3ML Solution 3 mL as needed Inhalation every 6 hrs Active Lidocaine 5 % Patch 1 patch remove after 12 hours Externally Once a day Active predniSONE 20 MG Tablet 1 tablet with fo od or milk Orally Once a day Active Dextromethorphan-guaiFENesi n 10-100 MG/5ML Syrup 10 mL as needed Orally every 4 hrs Active Vitamin D (Cholecalciferol) 25 MCG (1000 UT) Capsule 1 capsule Orally Once a day Active Social History Tobacco Use: Social History Observation Description Date Details (start date - stop date) Never Smoker NA - NA Social History Tobacco Use: Social Info Question Answer Notes Tobacco Control (Standard) Tobacco use: Nonsmoker Encounters Encounter Location Date Provider Diagnosis [address] [address] 01/24/2025 Yasmeen Matta Plan Of Treatment Next Appt Details Provider Name:Yasmeen Paxton , 01/26/2025 06:45:00 AM, [address], [address], Progress Notes * Sheri FOFANAOB:1945 (79 yo M)Acc No.[id number]:01/24/2025 Patient: Zack ROCK :1945 A ge:79 Y S ex:Male Address:[facility] [address], [place], [address] Subjective: * Chief Complaints: * C BRUNO PREP * Medical History: Interstitial pulmonary disease, unspecified Pulmonary fibrosis Unspecified atrial fibrillation Muscle weakness (generalized) Other abnormalities of gait and mobility Dysphagia, oropharyngeal phase Unspecified protein-calorie malnutrition 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 M other: cancer. * Social History: T obacco Use: T obacco Control (Standard) T obacco use: N onsmoker. * Medications: T akingDextromethorphan-guaiFENesin 10-100 MG/5ML Syrup 10 mL as needed Orally every 4 hrs Ipratropium-Albuterol 0.5-2.5 (3) MG/3ML Solution 3 mL as needed Inhalation every 6 hrs Lidocaine 5 % Patch 1 patch remove [...] Suspension 1 spray in each nostril Nasally Twice a day As neededEliquis 5 MG Tablet 1 tablet Orally twice a day Calcium Carbonate Antacid 400 MG Tablet Chewable 2 tablets Orally daily Bisacodyl 10 MG Suppository 1 suppository as needed Rectal Once a day Benzonatate 100 MG Capsule 1 capsule as needed Orally every 6 hours Bactrim DS 800-160 MG Tablet 1 tablet Orally Three times a Week Zuleyma Koehler ThuAtorvastatin Calcium 10 MG Tablet 1 tablet [...] then p.r.n. Orally twice a day Taking Dextromethorphan-guaiFENesin 10-100 MG/5ML Syrup 10 mL as needed Orally every 4 hrs Taking Ipratropium-Albuterol 0.5-2.5 (3) MG/3ML Solution 3 mL as needed Inhalation every 6 hrs Taking Lidocaine 5 % Patch 1 patch [...] Suspension 1 spray in each nostril Nasally Twice a day As neededTaking Eliquis 5 MG [...] tablet Orally Three times a Week Sun, e, uTaking Atorvastatin Calcium 10 MG Tablet 1 tablet [...] and then p.r.n. Orally twice a day DiscontinuedFluticasone Propionate 93 MCG/ACT Exhaler Suspension spray (1 spray in each nostril) Nasally Twice a day Discontinued Fluticasone Propionate 93 MCG/ACT Exhaler Suspension spray (1 spray in each nostril) Nasally Twice a day * Allergies: N .K.D.A.yesAllergies Verified. * true * Date: Generated for Lawrence cortés/Barbara/Elijah on: 0 01/24/2025 02:39 PM CDT
--- OUTSIDE RECORDS SUMMARY | 2025-01-24 14:39 | XMS_ITS | Encounter Summary ---
Author Organization [facility] Address [address] [place] [address] Care Team Providers Care Chemical Process Analyst Name Role Phone Unavailable Primary Care Provider Unavailabl e Encounter Details Date Type Department Care Team (Late st Contact Info) Description 11/30/2024 Lab Requisition [facility] Laboratory Services [address] [place] [address] [place] [address] [place] [address] Social History Tobacco Use Types Packs/Day Years Used Date Smoking Tobacco: Never Assessed Sex and Gender Information Value Date Recorded Sex Assigned at Not on file Legal Sex Male 8:58 AM CDT Gender Identity Not on file Sexual Orientation Not on file documented as of this encounter Plan of Treatment Not on file documented as of this encounter Procedures Procedure Name Priority Date/Time Associated Diagnosis Comments CBC WITH DIFFERENTIAL Routine 11/30/2024 3:10 AM CDT BASIC METABOLIC PANEL Routine 11/30/2024 3:10 AM CDT documented in this encounter Results * (ABNORMAL) CBC WITH DIFFERENTIAL (11/30/2024 3:10 AM CDT) WBC 5.0 4.0 - 9.8 K/uL 11/30/2024 7:28 AM CDT [facility] - [facility] RBC 4.08(L) 4.50 - 5.40 M/uL 11/30/2024 7:28 AM CDT [facility] HEMOGLOBIN 11.7(L) 13.6 - 16.5 g/dL 11/30/2024 7:28 AM CDT [facility] HEMATOCRIT 33.8(L) 40.0 - 48.0 % 11/30/2024 7:28 AM CDT [facility] MCV 82.8 82.0 - 99.0 fL 11/30/2024 7:28 AM CDT [facility] MCH 28.7 27.2 - 32.6 pg 11/30/2024 7:28 AM CDT [facility] MCHC 34.6 31.5 - 35.5 g/dL 11/30/2024 7:28 AM CDT [facility] RDW 15.2(H) 11.5 - 14.5 % 11/30/2024 7:28 AM CDT [facility] RDW-STDEV 45.5 37.1 - 48.7 fL 11/30/2024 7:28 AM CDT [facility] PLATELETS 121(L) 140 - 350 K/uL 11/30/2024 7:28 AM CDT [facility] MPV 9.8 9.3 - 12.4 fL 11/30/2024 7:28 AM CDT [facility] NEUTROPHILS 56 % 11/30/2024 7:28 AM CDT [facility] LYMPHOCYTES 36 % 11/30/2024 7:28 AM CDT [facility] MONOCYTES 4 % 11/30/2024 7:28 AM CDT [facility] EOSINOPHILS 1 % 11/30/2024 7:28 AM CDT [facility] BASOPHILS 0 % 11/30/2024 7:28 AM CDT [facility] IMMATURE GRANULOCYTES 3 % 11/30/2024 7:28 AM CDT [facility] Comment:IG (Immature Granulo cyte) count includes Metamyelocytes, Myelocytes, and Promyelocytes NEUTROPHIL ABSOLUTE 2.83 1.90 - 7.00 K/uL 11/30/2024 7:28 AM CDT [facility] LYMPHOCYTE ABSOLUTE 1.80 0.70 - 4.50 K/uL 11/30/2024 7:28 AM CDT [facility] MONOCYTE ABSOLUTE 0.19 0.10 - 1.30 K/uL 11/30/2024 7:28 AM CDT [facility] EOSINOPHIL ABSOLUTE 0.05 0.00 - 0.70 K/uL 11/30/2024 7:28 AM CDT [facility] BASOPHILS ABSOLUTE 0.02 0.00 - 0.20 K/uL 11/30/2024 7:28 AM CDT [facility] IMMATURE GRANULOCYTES ABSOLUTE 0.13(H) 0.00 - 0.03 K/uL 11/30/2024 7:28 AM CDT [facility] Blood Collection / Unknown 11/30/2024 3:10 AM CDT 11/30/2024 7:06 AM CDT us Darlin Stapleton MD HEMATOLOGY ORDERABLES Final Resu lt [facility] CLIA# [id number] [place] [address] * (ABNORMAL) BASIC METABOLIC PANEL (11/30/2024 3:10 AM CDT) SODIUM 128(L) 136 - 145 mmol/L 11/30/2024 7:51 AM CDT [facility] POTASSIUM 4.6 3.4 - 5.1 mmol/L 11/30/2024 7:51 AM CDT [facility] CHLORIDE 96(L) 98 - 107 mmol/L 11/30/2024 7:51 AM CDT [facility] CO2 20(L) 22 - 29 mmol/L 11/30/2024 7:51 AM CDT [facility] CALCIUM 7.6(L) 8.6 - 10.4 mg/dL 11/30/2024 7:51 AM CDT [facility] BUN 37(H) 6 - 20 mg/dL 11/30/2024 7:51 AM CDT [facility] CREATININE 1.46(H) 0.67 - 1.17 mg/dL 11/30/2024 7:51 AM T [facility] Comment:The GFR result is no t clinically significant on patients <18 or >70 years of age. GLUCOSE 126(H) 74 - 99 mg/dL 11/30/2024 7:51 AM T [facility] GFR 48 mL/min/1.7 3 sq meter 11/30/2024 7:51 AM T [facility] Comment:eGFR calculated with 2020 CKD-EPI equation. Vegetarian diet, extremely high or low muscle mass, and may affect results. Cystatin C with Glomerular Filtration Rate is a suitable alternative for these patients. 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 Discharged to extremely high risk facility. Will need to remain on Enhanced isolation (while hospitalized). Patient is required to be tested at every ED visit/ admission for the following 6 months, and once thereafter ([id number], Chuyita auris surveillance screening). If negative screen 6 months, R/O C. auris status can be removed. 11/08/2024 12/19/2024 documented as of this encounter
--- OUTSIDE RECORDS SUMMARY | 2025-01-24 14:39 | XMS_ITS | Encounter Summary ---
Author Organization [facility] Address [address] [place] [address] Care Team Providers Care Surgical Lead Name Role Phone Unavailable Primary Care Provider Unavailabl e Encounter Details Date Type Department Care Team (Late st Contact Info) Description 11/21/2024 Lab Requisition [facility] Laboratory Services [address] [place] [address] [place] [address] [place] [address] Social History Tobacco Use Types [...] Associated Diagnosis Comments CBC WITH DIFFERENTIAL Routine 11/21/2024 3:45 AM CDT BASIC METABOLIC PANEL Routine 11/21/2024 3:45 AM CDT documented in this encounter Results * (ABNORMAL) CBC WITH DIFFERENTIAL (11/21/2024 3:45 AM CDT) Pathologist [facility] WBC 5.5 4.0 - 9.8 K/uL 11/21/2024 8:20 AM CDT [facility] RBC 3.92(L) 4.50 - 5.40 M/uL 11/21/2024 8:20 AM CDT [facility] HEMOGLOBIN 11.2(L) 13.6 - 16.5 g/dL 11/21/2024 8:20 AM CDT [facility] HEMATOCRIT 33.7(L) 40.0 - 48.0 % 11/21/2024 8:20 AM CDT [facility] MCV 86.0 82.0 - 99.0 fL 11/21/2024 8:20 AM CDT [facility] MCH 28.6 27.2 - 32.6 pg 11/21/2024 8:20 AM CDT [facility] MCHC 33.2 31.5 - 35.5 g/dL 11/21/2024 8:20 AM CDT [facility] RDW 15.2(H) 11.5 - 14.5 % 11/21/2024 8:20 AM CDT [facility] RDW-STDEV 47.2 37.1 - 48.7 fL 11/21/2024 8:20 AM CDT [facility] PLATELETS 79(L) 140 - 350 K/uL 11/21/2024 8:20 AM CDT [facility] MPV 10.5 9.3 - 12.4 fL 11/21/2024 8:20 AM CDT [facility] NEUTROPHILS 85 % 11/21/2024 8:20 AM CDT [facility] LYMPHOCYTES 10 % 11/21/2024 8:20 AM CDT [facility] MONOCYTES 4 % 11/21/2024 8:20 AM CDT [facility] EOSINOPHILS 0 % 11/21/2024 8:20 AM CDT [facility] BASOPHILS 0 % 11/21/2024 8:20 AM CDT [facility] IMMATURE GRANULOCYTES 1 % 11/21/2024 8:20 AM CDT [facility] Comment:IG (Immature Granulo cyte) count includes Metamyelocytes, Myelocytes, and Promyelocytes NEUTROPHIL ABSOLUTE 4.66 1.90 - 7.00 K/uL 11/21/2024 8:20 AM CDT [facility] LYMPHOCYTE ABSOLUTE 0.53(L) 0.70 - 4.50 K/uL 11/21/2024 8:20 AM CDT [facility] MONOCYTE ABSOLUTE 0.20 0.10 - 1.30 K/uL 11/21/2024 8:20 AM CDT [facility] EOSINOPHIL ABSOLUTE 0.00 0.00 - 0.70 K/uL 11/21/2024 8:20 AM CDT [facility] BASOPHILS ABSOLUTE 0.01 0.00 - 0.20 K/uL 11/21/2024 8:20 AM CDT [facility] IMMATURE GRANULOCYTES ABSOLUTE 0.06(H) 0.00 - 0.03 K/uL 11/21/2024 8:20 AM CDT [facility] Blood Collection / Unknown 11/21/2024 3:45 AM CDT 11/21/2024 7:21 AM CDT us Polo Ochoa MD HEMATOLOGY ORDERABLES Final Res ult [facility] CLIA# [id number] [place] [address] * (ABNORMAL) BASIC METABOLIC PANEL (11/21/2024 3:45 AM CDT) SODIUM 133(L) 136 - 145 mmol/L 11/21/2024 8:32 AM CDT [facility] POTASSIUM 4.5 3.4 - 5.1 mmol/L 11/21/2024 8:32 AM CDT [facility] CHLORIDE 100 98 - 107 mmol/L 11/21/2024 8:32 AM CDT [facility] CO2 21(L) 22 - 29 mmol/L 11/21/2024 8:32 AM CDT [facility] CALCIUM 8.2(L) 8.6 - 10.4 mg/dL 11/21/2024 8:32 AM CDT [facility] BUN 33(H) 6 - 20 mg/dL 11/21/2024 8:32 AM CDT [facility] CREATININE 1.13 0.67 - 1.17 mg/dL 11/21/2024 8:32 AM T [facility] [employer] [facility] Comment:The GFR result is no t clinically significant on patients <18 or >70 years of age. GLUCOSE 140(H) 74 - 99 mg/dL 11/21/2024 8:32 AM T [facility] GFR >60 mL/min/1.7 3 sq meter 11/21/2024 8:32 AM T [facility] Comment:eGFR calculated with 2020 CKD-EPI equation. Vegetarian diet, extremely high or low muscle mass, and may affect results. Cystatin C with Glomerular Filtration Rate is a suitable alternative for these patients. ANION GAP 12 8 - 16 mmol/L 11/21/2024 8:32 AM T [facility] Blood Collection / Unknown 11/21/2024 3:45 AM CDT 11/21/2024 7:21 AM CDT Polo Ochoa MD CHEMISTRY ORDERABLES Final Resu lt [facility] [employer] [facility] CLIA# [id number] [place] [address] documented in this encounter Visit Diagnoses Not [...] the following 6 months, and once thereafter ([id number], Chuyita auris surveillance screening). If negative screen 6 months, R/O C. auris status can be removed. 11/08/2024 12/19/2024 documented as of this encounter
--- OUTSIDE RECORDS SUMMARY | 2025-01-24 14:39 | XMS_ITS | Encounter Summary ---
Author Organization [facility] Address [address] [place] [address] Care Team Providers Care Laryngologist Name Role Phone Unavailable Primary Care Provider Unavailabl e Encounter Details Date Type Department Care Team (Late st Contact Info) Description 11/12/2024 Lab Requisition [facility] Laboratory Services [address] [place] [address] [place] [address] [place] [address] Social History Tobacco Use Types [...] Associated Diagnosis Comments CBC WITH DIFFERENTIAL Routine 11/12/2024 4:00 AM CDT BASIC METABOLIC PANEL Routine 11/12/2024 4:00 AM CDT documented in this encounter Results * (ABNORMAL) CBC WITH DIFFERENTIAL (11/12/2024 4:00 AM CDT) WBC 8.8 4.0 - 9.8 K/uL 11/12/2024 7:42 AM CDT [facility] - [facility] RBC 3.93(L) 4.50 - 5.40 M/uL 11/12/2024 7:42 AM CDT [facility] HEMOGLOBIN 11.1(L) 13.6 - 16.5 g/dL 11/12/2024 7:42 AM CDT [facility] HEMATOCRIT 34.2(L) 40.0 - 48.0 % 11/12/2024 7:42 AM CDT [facility] MCV 87.0 82.0 - 99.0 fL 11/12/2024 7:42 AM CDT [facility] MCH 28.2 27.2 - 32.6 pg 11/12/2024 7:42 AM CDT [facility] MCHC 32.5 31.5 - 35.5 g/dL 11/12/2024 7:42 AM CDT [facility] RDW 14.2 11.5 - 14.5 % 11/12/2024 7:42 AM CDT [facility] RDW-STDEV 45.0 37.1 - 48.7 fL 11/12/2024 7:42 AM CDT [facility] PLATELETS 186 140 - 350 K/uL 11/12/2024 7:42 AM CDT [facility] MPV 10.1 9.3 - 12.4 fL 11/12/2024 7:42 AM CDT [facility] NEUTROPHILS 89 % 11/12/2024 7:42 AM CDT [facility] LYMPHOCYTES 5 % 11/12/2024 7:42 AM CDT [facility] MONOCYTES 4 % 11/12/2024 7:42 AM CDT [facility] EOSINOPHILS 1 % 11/12/2024 7:42 AM CDT [facility] BASOPHILS 0 % 11/12/2024 7:42 AM CDT [facility] IMMATURE GRANULOCYTES 1 % 11/12/2024 7:42 AM CDT [facility] Comment:IG (Immature Granulo cyte) count includes Metamyelocytes, Myelocytes, and Promyelocytes NEUTROPHIL ABSOLUTE 7.77(H) 1.90 - 7.00 K/uL 11/12/2024 7:42 AM CDT [facility] LYMPHOCYTE ABSOLUTE 0.44(L) 0.70 - 4.50 K/uL 11/12/2024 7:42 AM CDT [facility] MONOCYTE ABSOLUTE 0.38 0.10 - 1.30 K/uL 11/12/2024 7:42 AM CDT [facility] EOSINOPHIL ABSOLUTE 0.05 0.00 - 0.70 K/uL 11/12/2024 7:42 AM CDT [facility] BASOPHILS ABSOLUTE 0.01 0.00 - 0.20 K/uL 11/12/2024 7:42 AM CDT [facility] IMMATURE GRANULOCYTES ABSOLUTE 0.12(H) 0.00 - 0.03 K/uL 11/12/2024 7:42 AM CDT [facility] Blood Collection / Unknown 11/12/2024 4:00 AM CDT 11/12/2024 7:05 AM CDT us Darlin Stapleton MD HEMATOLOGY ORDERABLES Final Resu lt [facility] CLIA# [id number] [place] [address] * (ABNORMAL) BASIC METABOLIC PANEL (11/12/2024 4:00 AM CDT) SODIUM 141 136 - 145 mmol/L 11/12/2024 8:03 AM T [facility] POTASSIUM 5.0 3.4 - 5.1 mmol/L 11/12/2024 8:03 AM T [facility] CHLORIDE 106 98 - 107 mmol/L 11/12/2024 8:03 AM CDT [facility] CO2 23 22 - 29 mmol/L 11/12/2024 8:03 AM T [facility] CALCIUM 8.1(L) 8.6 - 10.4 mg/dL 11/12/2024 8:03 AM T [facility] BUN 37(H) 6 - 20 mg/dL 11/12/2024 8:03 AM CDT [facility] CREATININE 1.17 0.67 - 1.17 mg/dL 11/12/2024 8:03 AM T [facility] Comment:The GFR result is no t clinically significant on patients <18 or >70 years of age. GLUCOSE 62(L) 74 - 99 mg/dL 11/12/2024 8:03 AM T [facility] GFR >60 mL/min/1.7 3 sq meter 11/12/2024 8:03 AM T [facility] Comment:eGFR calculated with 2020 CKD-EPI equation. Vegetarian diet, extremely high or low muscle mass, and may affect results. Cystatin C with Glomerular Filtration Rate is a suitable alternative for these patients. ANION GAP 12 8 - 16 mmol/L 11/12/2024 8:03 AM T [facility] Blood Collection / Unknown 11/12/2024 4:00 AM CDT 11/12/2024 7:05 AM CDT Darlin Stapleton MD CHEMISTRY ORDERABLES Final Resul t [facility] CLIA# [id number] [address] documented in this encounter Visit Diagnoses Not [...] the following 6 months, and once thereafter ([id number], [place] auris surveillance screening). If negative screen 6 months, R/O C. auris status can be removed. 11/08/2024 12/19/2024 documented as of this encounter
--- OUTSIDE RECORDS SUMMARY | 2025-01-24 14:39 | XMS_ITS | Clinical Summary ---
Author Organization [facility] Address [address] [place] [address] Phone Care Team Providers Care Hydrography Teacher Name Role Phone Unavailable Primary Care Provider Unavailabl e Encounters Date Type Department Care Team Description 01/10/2025 External Device Data STL ABSTRACTION Provider, Abstract 12/27/2024 External Device Data STL ABSTRACTION Provider, Abstract 12/27/2024 External Device Data STL ABSTRACTION Provider, Abstract 12/13/2024 External Device Data STL ABSTRACTION Provider, Abstract 11/30/2024 12:54 PM CDT - 11/30/2024 11:59 PM CDT Hospital En[place] [facility] [place] [id number] [place] [address] Lloyd Mercer MD Ada, Sreenu, MD Discharge Disposition: Home or Self Care 11/30/2024 Lab Requisition [facility] Services [address] [place] [address] Darlin Stapleton MD 11/29/2024 Transcribe Orders [facility] Radiology [address] [place] [address] Lloyd Mercer MD Pulmonary fibrosis (CMS/HCC) (Primary Dx) 11/27/2024 Lab Requisition [facility] Services [address] [place] [address] Darlin Stapleton MD 11/24/2024 Lab Requisition [facility] [address] [place] [address] Darlin Stapleton MD 11/21/2024 Lab Requisition [facility] [address] [place] [address] Polo Ochoa MD 11/18/2024 Lab Requisition [facility] [address] [place] [address] Darlin Stapleton MD 11/16/2024 Lab Requisition [facility] [address] [place] [address] Darlin Stapleton MD 11/15/2024 External Device Data STL ABSTRACTION Provider, Abstract 11/15/2024 External Device Data STL ABSTRACTION Provider, Abstract 11/15/2024 External Device Data STL ABSTRACTION Provider, Abstract 11/15/2024 Lab Requisition [facility] [address] [place] [address] Darlin Stapleton MD 11/12/2024 Lab Requisition [facility] [address] [place] [address] Darlin Stapleton MD 11/09/2024 9:05 AM CDT - 11/09/2024 11:59 PM CDT Hospital [facility] [address] [place] [address] Darlin Stapleton MD Discharge Disposition: Home or Self Care 11/09/2024 Lab Requisition [facility] [address] [place] [address] Polo Ochoa MD from Last 3 Months Social History Tobacco Use Types Packs/Day Years Used Date Smoking Tobacco: Never Assessed Sex and Gender Information Value Date Recorded Sex Assigned at Not on file Legal Sex Male 8:58 AM CDT Gender Identity Not on file Sexual Orientation Not on file Plan of Treatment Health Maintenance Due Date Last Done Comments DIABETES MICROALBUMIN ANNUAL SCREEN 12/04/1961 LDL CHOLESTEROL ANNUAL 12/04/1961 DTAP/TDAP/TD VACCINES (1 - Tdap) 12/04/1962 ZOSTER VACCINE (1 of 2) 12/04/1993 RSV VACCINE (60+ or ) (1 - 1-dose 75+ series) 12/04/2018 INFLUENZA VACCINE (#1) 2024 , 01/28/2023, 01/18/2021 COVID-19 Vaccine ( season) 01/09/202508/2020, 08/14/2020 DIABETES ANNUAL RETINAL EXAM 04/19/2025 04/19/2024 DIABETES HBA1C Q 6 MONTHS 04/20/2025 10/19/2024 DIABETES ANNUAL FOOT EXAM 05/25/2025 05/25/2024 PNEUMOCOCCAL VACCINE 50+ YEARS Completed 01/06/2020 , 12/17/2018 Procedures Procedure Name Priority Date/Time Associated Diagnosis Comments CT CHEST WO CONTRAST Routine 11/30/2024 1:00 PM CDT Pulmonary fibrosis (CMS/HCC) CBC WITH DIFFERENTIAL Routine 11/30/2024 3:10 AM CDT BASIC METABOLIC PANEL Routine 11/30/2024 3:10 AM CDT BASIC METABOLIC PANEL Routine 11/27/2024 4:00 AM CDT CBC WITH DIFFERENTIAL Routine 11/27/2024 4:00 AM CDT CBC WITH DIFFERENTIAL Routine 11/24/2024 3:00 AM CDT BASIC METABOLIC PANEL Routine 11/24/2024 3:00 AM CDT CBC WITH DIFFERENTIAL Routine 11/21/2024 3:45 AM CDT BASIC METABOLIC PANEL Routine 11/21/2024 3:45 AM CDT BASIC METABOLIC PANEL Routine 11/18/2024 4:00 AM CDT CBC WITH DIFFERENTIAL Routine 11/18/2024 4:00 AM CDT RENAL FUNCTION PANEL Routine 11/16/2024 3:20 AM CDT CBC WITH DIFFERENTIAL Routine 11/15/2024 4:00 AM CDT BASIC METABOLIC PANEL Routine 11/15/2024 4:00 AM CDT CBC WITH DIFFERENTIAL Routine 11/12/2024 4:00 AM CDT BASIC METABOLIC PANEL Routine 11/12/2024 4:00 AM CDT PTT Routine 11/09/2024 3:00 AM CDT PROTIME-INR Routine 11/09/2024 3:00 AM CDT PREALBUMIN Routine 11/09/2024 3:00 AM CDT CBC WITH DIFFERENTIAL Routine 11/09/2024 3:00 AM CDT COMPREHENSIVE METABOLIC PANEL Routine 11/09/2024 3:00 AM CDT from Last 3 Months Results * CT CHEST WO CONTRAST (11/30/2024 1:00 PM CDT) Anatomical Region Laterality Modality Chest Computed Tomogra phy 11/30/2024 12:5 4 PM CDT Impressions 11/30/2024 1:25 PM CDT Impression: 1. Peripheral reticulation with honeycombing and traction bronchiectasis most prominent in the lower lobes consistent with severe pulmonary fibrosis. DICTATION LOCATION: [address] 11/30/2024 1:[address] CHEST WITHOUT CONTRAST DATE: 11/30/2024 1:00 PM HISTORY: pulmonary fibrosis TECHNIQUE: Transaxial computed tomographic images of the chest were obtained without contrast. The examination was performed with the adjustment of mA according to the patient size and/or the use of Iterative Reconstruction Technique. COMPARISON: No comparison FINDINGS: Coronary artery calcifications are present.The heart is enlarged. Right-sided pleural calcified thickening is present. There is peripheral reticulation with traction bronchiectasis and honeycombing present most prominent in the lower lobes suggesting pulmonary fibrosis. Limited views the upper abdomen are normal. Procedure Note Deshaun Orona MD - 11/30/2024 CT CHEST WITHOUT CONTRAST DATE: 11/30/2024 1:00 PM HISTORY: pulmonary fibrosis TECHNIQUE: Transaxial computed tomographic images of the chest were obtained without contrast. The examination was performed with the adjustment of mA according to the patient size and/or the use of Iterative Reconstruction Technique. COMPARISON: No comparison FINDINGS: Coronary artery calcifications are present.The heart is enlarged. Right-sided pleural calcified thickening is present. There is peripheral reticulation with traction bronchiectasis and honeycombing present most prominent in the lower lobes suggesting pulmonary fibrosis. Limited views the upper abdomen are normal. Impression: 1. Peripheral reticulation with honeycombing and traction bronchiectasis most prominent in the lower lobes consistent with severe pulmonary fibrosis. DICTATION LOCATION: Location [address] [place] [address] ORDERABLES Final Result * (ABNORMAL) CBC WITH DIFFERENTIAL (11/30/2024 3:10 AM CDT) Only the most recent of8 resultswithin the time period is included. Pathologist [facility] WBC 5.0 4.0 - 9.8 K/uL 11/30/2024 7:28 AM [facility] RBC 4.08(L) 4.50 - 5.40 M/uL 11/30/2024 7:28 AM CDT [facility] HEMOGLOBIN 11.7(L) 13.6 - 16.5 g/dL 11/30/2024 7:28 AM [facility] HEMATOCRIT 33.8(L) 40.0 - 48.0 % 11/30/2024 7:28 AM T [facility] MCV 82.8 82.0 - 99.0 fL 11/30/2024 7:28 AM [facility] MCH 28.7 27.2 - 32.6 pg 11/30/2024 7:28 AM [facility] MCHC 34.6 31.5 - 35.5 g/dL 11/30/2024 7:28 AM [facility] RDW 15.2(H) 11.5 - 14.5 % 11/30/2024 7:28 AM CDT [facility] RDW-STDEV 45.5 37.1 - 48.7 fL 11/30/2024 7:28 AM CDT [facility] PLATELETS 121(L) 140 - 350 K/uL 11/30/2024 7:28 AM CDT [facility] MPV 9.8 9.3 - 12.4 fL 11/30/2024 7:28 AM CDT [facility] NEUTROPHILS 56 % 11/30/2024 7:28 AM CDT [facility] LYMPHOCYTES 36 % 11/30/2024 7:28 AM CDT [facility] MONOCYTES 4 % 11/30/2024 7:28 AM CDT [facility] EOSINOPHILS 1 % 11/30/2024 7:28 AM CDT [facility] BASOPHILS 0 % 11/30/2024 7:28 AM CDT [facility] [email or web address] [facility] IMMATURE GRANULOCYTES 3 % 11/30/2024 7:28 AM T [facility] Comment:IG (Immature Granulo cyte) count includes Metamyelocytes, Myelocytes, and Promyelocytes NEUTROPHIL ABSOLUTE 2.83 1.90 - 7.00 K/uL 11/30/2024 7:28 AM [facility] [email or web address] [facility] LYMPHOCYTE ABSOLUTE 1.80 0.70 - 4.50 K/uL 11/30/2024 7:28 AM T [facility] MONOCYTE ABSOLUTE 0.19 0.10 - 1.30 K/uL 11/30/2024 7:28 AM CDT [facility] EOSINOPHIL ABSOLUTE 0.05 0.00 - 0.70 K/uL 11/30/2024 7:28 AM CDT [facility] BASOPHILS ABSOLUTE 0.02 0.00 - 0.20 K/uL 11/30/2024 7:28 AM CDT [facility] IMMATURE GRANULOCYTES ABSOLUTE 0.13(H) 0.00 - 0.03 K/uL 11/30/2024 7:28 AM T [facility] Blood Collection / Unknown 11/30/2024 3:10 AM CDT 11/30/2024 7:06 AM CDT us Darlin Stapleton MD HEMATOLOGY ORDERABLES Final Resu lt [facility] CLIA# [id number] [place] [address] * (ABNORMAL) BASIC METABOLIC PANEL (11/30/2024 3:10 AM CDT) Only the most recent of7 resultswithin the time period is included. SODIUM 128(L) 136 - 145 mmol/L 11/30/2024 7:51 AM T [facility] POTASSIUM 4.6 3.4 - 5.1 mmol/L 11/30/2024 7:51 AM T [facility] CHLORIDE 96(L) 98 - 107 mmol/L 11/30/2024 7:51 AM T [facility] CO2 20(L) 22 - 29 mmol/L 11/30/2024 7:51 AM [facility] CALCIUM 7.6(L) 8.6 - 10.4 mg/dL 11/30/2024 7:51 AM T [facility] BUN 37(H) 6 - 20 mg/dL 11/30/2024 7:51 AM T [facility] CREATININE 1.46(H) 0.67 - 1.17 mg/dL 11/30/2024 7:51 AM T [facility] Comment:The GFR result is no t clinically significant on patients <18 or >70 years of age. GLUCOSE 126(H) 74 - 99 mg/dL 11/30/2024 7:51 AM T [facility] GFR 48 mL/min/1.7 3 sq meter 11/30/2024 7:51 AM T [facility] Comment:eGFR calculated with 2020 CKD-EPI equation. Vegetarian diet, extremely high or low muscle mass, and may affect results. Cystatin C with Glomerular Filtration Rate is a suitable alternative for these patients. ANION GAP 12 8 - 16 mmol/L 11/30/2024 7:51 AM T [facility] Blood Collection / Unknown 11/30/2024 3:10 AM CDT 11/30/2024 7:06 AM CDT Darlin Stapleton MD CHEMISTRY ORDERABLES Final Resul t [facility] CLIA# [id number] [address] [place] [address] * (ABNORMAL) RENAL FUNCTION PANEL (11/16/2024 3:20 AM CDT) SODIUM 137 136 - 145 mmol/L 11/16/2024 8:03 AM T [facility] POTASSIUM 4.8 3.4 - 5.1 mmol/L 11/16/2024 8:03 AM T [facility] CHLORIDE 105 98 - 107 mmol/L 11/16/2024 8:03 AM [facility] CO2 23 22 - 29 mmol/L 11/16/2024 8:03 AM [facility] CALCIUM 8.3(L) 8.6 - 10.4 mg/dL 11/16/2024 8:03 AM [facility] BUN 33(H) 6 - 20 mg/dL 11/16/2024 8:03 AM T [facility] CREATININE 1.12 0.67 - 1.17 mg/dL 11/16/2024 8:03 AM T [facility] Comment:The GFR result is no t clinically significant on patients <18 or >70 years of age. GLUCOSE 53(LL) 74 - 99 mg/dL 11/16/2024 8:03 AM T [facility] ALBUMIN 2.9(L) 3.5 - 5.2 g/dL 11/16/2024 8:03 AM T [facility] PHOSPHORUS 3.8 2.5 - 4.5 mg/dL 11/16/2024 8:03 AM CDT [facility] GFR >60 mL/min/1.7 3 sq meter 11/16/2024 8:03 AM CDT [facility] Comment:eGFR calculated with 2020 CKD-EPI equation. Vegetarian diet, extremely high or low muscle mass, and may affect results. Cystatin C with Glomerular Filtration Rate is a suitable alternative for these patients. ANION GAP 9 8 - 16 mmol/L 11/16/2024 8:03 AM CDT [facility] Blood Collection / Unknown 11/16/2024 3:20 AM CDT 11/16/2024 7:04 AM CDT Darlin Stapleton MD CHEMISTRY ORDERABLES Final Resul t Performing Organization Address City/[facility]/ZIP Co de Phone Number [facility] CLIA# [id number] [place] [address] * PTT (11/09/2024 3:00 AM CDT) PTT 30.2 23.1 - 37.1 seconds 11/09/2024 9:20 AM CDT [facility] Blood Collection / Unknown 11/09/2024 3:00 AM CDT 11/09/2024 9:19 AM CDT Polo Ochoa MD HEMATOLOGY ORDERABLES Final Res ult [facility] CLIA# [id number] [place] [address] * (ABNORMAL) PROTIME-INR (11/09/2024 3:00 AM CDT) PROTIME 15.9(H) 11.5 - 14.7 Seconds 11/09/2024 9:20 AM CDT [facility] INR 1.3(H) 0.9 - 1.1 11/09/2024 9:20 AM CDT [facility]ORATORY SERVICES [facility] Blood Collection / Unknown 11/09/2024 3:00 AM CDT 11/09/2024 9:19 AM CDT Polo Ochoa MD HEMATOLOGY ORDERABLES Final Res ult [facility] CLIA# [id number] [place] [address] * PREALBUMIN (11/09/2024 3:00 AM CDT) PREALBUMIN 21 20 - 40 mg/dL 11/09/2024 11:[address] [facility] Blood Collection / Unknown 11/09/2024 3:00 AM CDT 11/09/2024 9:19 AM CDT Polo Ochoa MD CHEMISTRY ORDERABLES Final Resu lt Performing Organization Address City/[facility]/ZIP Co de Phone Number [facility] CLIA# [id number] [address] [place] [address] * (ABNORMAL) COMPREHENSIVE METABOLIC PANEL (11/09/2024 3:00 AM CDT) SODIUM 140 136 - 145 mmol/L 11/09/2024 9:21 AM CDT [facility] SERVICES [facility] POTASSIUM 4.5 3.4 - 5.1 mmol/L 11/09/2024 9:21 AM CDT [facility] CHLORIDE 105 98 - 107 mmol/L 11/09/2024 9:21 AM CDT [facility] CO2 26 22 - 29 mmol/L 11/09/2024 9:21 AM CDT [facility] CALCIUM 8.5(L) 8.6 - 10.4 mg/dL 11/09/2024 9:21 AM CDT [facility] BUN 49(H) 6 - 20 mg/dL 11/09/2024 9:21 AM [facility] CREATININE 1.20(H) 0.67 - 1.17 mg/dL 11/09/2024 9:21 AM [facility] Comment:The GFR result is no t clinically significant on patients <18 or >70 years of age. GLUCOSE 87 74 - 99 mg/dL 11/09/2024 9:21 AM [facility] TOTAL PROTEIN 5.4(L) 6.3 - 8.7 g/dL 11/09/2024 9:21 AM [facility] ALBUMIN 3.0(L) 3.5 - 5.2 g/dL 11/09/2024 9:21 AM [facility] BILIRUBIN TOTAL 0.5 0.0 - 1.1 mg/dL 11/09/2024 9:21 AM [facility] ALKALINE PHOSPHATASE 100 40 - 150 U/L 11/09/2024 9:21 AM [facility] AST 13 0 - 41 U/L 11/09/2024 9:21 AM [facility] ALT 44(H) 0 - 41 U/L 11/09/2024 9:21 AM [facility] GFR >60 mL/min/1.7 3 sq meter 11/09/2024 9:21 AM [facility] Comment:eGFR calculated with 2020 CKD-EPI equation. Vegetarian diet, extremely high or low muscle mass, and may affect results. Cystatin C with Glomerular Filtration Rate is a suitable alternative for these patients. 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 Discharged to extremely high risk facility. Will need to remain on Enhanced isolation (while hospitalized). Patient is required to be tested at every ED visit/ admission for the following 6 months, and once thereafter ([id number], Chuyita auris surveillance screening). If negative screen 6 months, R/O C. auris status can be removed. 11/08/2024 12/19/[address] [place] [address] [place] [address] [employer] [facility]
--- OUTSIDE RECORDS SUMMARY | 2025-01-24 14:39 | XMS_ITS | Encounter Summary ---
Author Organization [facility] Address [address] [place] [address] Care Team Providers Care Tank Builder Supervisor Name Role Phone Unavailable Primary Care Provider Unavailabl e Encounter Details Date Type Department Care Team (Late st Contact Info) Description 11/27/2024 Lab Requisition [facility] Laboratory Services [address] [place] [address] [place] [id number] [place] [address] Social History Tobacco Use Types [...] Associated Diagnosis Comments CBC WITH DIFFERENTIAL Routine 11/27/2024 4:00 AM CDT BASIC METABOLIC PANEL Routine 11/27/2024 4:00 AM CDT documented in this encounter Results * (ABNORMAL) BASIC METABOLIC PANEL (11/27/2024 4:00 AM CDT) SODIUM 127(L) 136 - 145 mmol/L 11/27/2024 7:56 AM CDT [facility] - [facility] POTASSIUM 4.2 3.4 - 5.1 mmol/L 11/27/2024 7:56 AM CDT [facility] - [facility] CHLORIDE 96(L) 98 - 107 mmol/L 11/27/2024 7:56 AM CDT [facility] - [facility] CO2 24 22 - 29 mmol/L 11/27/2024 7:56 AM T [facility] CALCIUM 7.5(L) 8.6 - 10.4 mg/dL 11/27/2024 7:56 AM T [facility] BUN 28(H) 6 - 20 mg/dL 11/27/2024 7:56 AM T [facility] CREATININE 1.20(H) 0.67 - 1.17 mg/dL 11/27/2024 7:56 AM T [facility] Comment:The GFR result is no t clinically significant on patients <18 or >70 years of age. GLUCOSE 181(H) 74 - 99 mg/dL 11/27/2024 7:56 AM T [facility] GFR >60 mL/min/1.7 3 sq meter 11/27/2024 7:56 AM T [facility] Comment:eGFR calculated with 2020 CKD-EPI equation. Vegetarian diet, extremely high or low muscle mass, and may affect results. Cystatin C with Glomerular Filtration Rate is a suitable alternative for these patients. ANION GAP 7(L) 8 - 16 mmol/L 11/27/2024 7:56 AM T [facility] Blood Collection / Unknown 11/27/2024 4:00 AM CDT 11/27/2024 7:08 AM CDT us Darlin Stapleton MD CHEMISTRY ORDERABLES Final Resul t [facility] CLIA# [id number] [place] [address] * (ABNORMAL) CBC WITH DIFFERENTIAL (11/27/2024 4:00 AM CDT) WBC 4.0 4.0 - 9.8 K/uL 11/27/2024 8:07 AM CDT [facility] RBC 3.93(L) 4.50 - 5.40 M/uL 11/27/2024 8:07 AM [facility] HEMOGLOBIN 11.4(L) 13.6 - 16.5 g/dL 11/27/2024 8:07 AM [facility] HEMATOCRIT 32.7(L) 40.0 - 48.0 % 11/27/2024 8:07 AM [facility] MCV 83.2 82.0 - 99.0 fL 11/27/2024 8:07 AM [facility] MCH 29.0 27.2 - 32.6 pg 11/27/2024 8:07 AM [facility] MCHC 34.9 31.5 - 35.5 g/dL 11/27/2024 8:07 AM [facility] RDW 14.9(H) 11.5 - 14.5 % 11/27/2024 8:07 AM [facility] RDW-STDEV 45.1 37.1 - 48.7 fL 11/27/2024 8:07 AM [facility] PLATELETS 87(L) 140 - 350 K/uL 11/27/2024 8:07 AM [facility] MPV 10.1 9.3 - 12.4 fL 11/27/2024 8:07 AM [facility] NEUTROPHILS 64 % 11/27/2024 8:07 AM [facility] LYMPHOCYTES 27 % 11/27/2024 8:07 AM CDCOUNTS INCLUDE 234 BEDS AT THE [facility] MONOCYTES 6 % 11/27/2024 8:07 AM CDT [facility] EOSINOPHILS 2 % 11/27/2024 8:07 AM CDCOUNTS INCLUDE 234 BEDS AT THE [facility] BASOPHILS 0 % 11/27/2024 8:07 AM CDT [facility] IMMATURE GRANULOCYTES 1 % 11/27/2024 8:07 AM [facility] Comment:IG (Immature Granulo cyte) count includes Metamyelocytes, Myelocytes, and Promyelocytes NEUTROPHIL ABSOLUTE 2.54 1.90 - 7.00 K/uL 11/27/2024 8:07 AM CDT [facility] LYMPHOCYTE ABSOLUTE 1.07 0.70 - 4.50 K/uL 11/27/2024 8:07 AM CDT [facility] - [facility] MONOCYTE ABSOLUTE 0.22 0.10 - 1.30 K/uL 11/27/2024 8:07 AM CDT [facility] EOSINOPHIL ABSOLUTE 0.07 0.00 - 0.70 K/uL 11/27/2024 8:07 AM CDT [facility] BASOPHILS ABSOLUTE 0.01 0.00 - 0.20 K/uL 11/27/2024 8:07 AM CDT [facility] IMMATURE GRANULOCYTES ABSOLUTE 0.05(H) 0.00 - 0.03 K/uL 11/27/2024 8:07 AM CDT [facility] Blood Collection / Unknown 11/27/2024 4:00 AM CDT 11/27/2024 7:08 AM CDT Darlin Stapleton MD HEMATOLOGY ORDERABLES Final Resu lt [facility] CLIA# [id number] [address] [place] [address] documented in this encounter Visit Diagnoses Not [...] the following 6 months, and once thereafter ([id number], Chuyita auris surveillance screening). If negative screen 6 months, R/O C. auris status can be removed. 11/08/2024 12/19/2024 documented as of this encounter
--- OUTSIDE RECORDS SUMMARY | 2025-01-24 14:39 | XMS_ITS | Patient Health Record ---
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 Name Role Phone MARIAMA ANDERSON Primary Care Provider PaxtonElizabethYasmeen Unavailable [phone] Allergies No Known Allergies Reason For Referral No Information Medications Medication SIG (Take, Route, Frequency, Duration) Notes Start Date End Date Status Fluticasone Propionate 50 MCG/ACT Suspension 1 spray in each nostril Nasally Twice a day As needed Active MiraLax 17 GM/SCOOP Powder 1 gram mixed with 8 ounces of fluid Orally Once a day As needed Active Bactrim DS 800-160 MG Tablet 1 tablet Orally Three times a Week Thu, Thu, Thu Active Milk of Magnesia 400 MG/5ML Suspension 30 mL as needed Orally Once a day Active Atorvastatin Calcium 10 MG Tablet 1 tablet Orally Once a day Active metFORMIN HCl 500 MG Tablet 1 tablet wit h a meal Orally twice a day Active Admelog 100 UNIT/ML Solution [...] greater than 400, call MD. subcutaneous Active Dextromethorphan-guaiFENesi n 10-100 MG/5ML Syrup 10 mL as needed Orally every 4 hrs Active Melatonin 5 MG Tablet 1 tablet in the ev ening Orally Once a day Active Acetaminophen 325 MG Tablet 2 tablet as needed Orally every 6 hrs Active Vitamin D (Cholecalciferol) 25 MCG (1000 UT) Capsule 1 capsule Orally Once a day Active Eliquis 5 MG Tablet 1 tablet Orally twic e a day Active Tamsulosin HCl 0.4 MG Capsule 1 capsule Orally Once a day Active Calcium Carbonate Antacid 400 MG Tablet Chewable 2 tablets Orally daily Active Pantoprazole Sodium 40 MG Tablet Delayed Release 1 tablet Orally twice a day Active Bisacodyl 10 MG Suppository 1 suppositor y as needed Rectal Once a day Active Ondansetron HCl 4 MG Tablet 1 tablet Orally every 6 hours As needed Active Benzonatate 100 MG Capsule 1 capsule as needed Orally every 6 hours Active Ipratropium-Albuterol 0.5-2.5 (3) MG/3ML Solution 3 mL as needed Inhalation every 6 hrs Active Lasix 20 MG Tablet 1 tablet Orally Once a day Active Mucinex DM 30-600 MG Tablet Extended Release 12 Hour 1 tablet twice a day x5 days and then p.r.n. Orally twice a day 01/20/2025 Active Lidocaine 5 % Patch 1 patch remove after 12 hours Externally Once a day Active Lantus 100 UNIT/ML Solution 20 units nig htly at bedtime Subcutaneous daily Active predniSONE 20 MG Tablet 1 tablet with fo od or milk Orally Once a day Active Social History Tobacco Use: Social History Observation Description Date Details (start date - stop date) Never Smoker NA - NA Social History Drug/Alcohol: Social Info Question Answer Notes Drugs Have you used drugs other than those for medical reasons in the past 12 months? No AUDIT-C (Standard) Did you have a drink containing alcohol in the past year? 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) Active confirmed Problem Protein calorie malnutrition (761451997) Unspecified protein-calorie malnutrition (E46) Active confirmed Problem Insomnia (044178220) Insomnia, unspecified (G47.00) Active confirmed Problem Atrial fibrillation (70500394) Unspecified atrial fibrillation (I48.91) Active confirmed Problem Cardiomegaly (6329802) Cardiomegaly (I51.7) Active confirmed Problem Allergic rhinitis (05328952) Allergic rhinitis, unspecified (J30.9) Active confirmed Problem 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) Active confirmed Problem 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) Interstitial pulmonary disease, unspecified (J84.9) Active confirmed Problem Gastro-esophageal reflux disease without esophagitis (962939275) Gastro-esophagea l reflux disease without esophagitis (K21.9) Active confirmed Problem Constipation (95431784) Constipation, unspecified (K59.00) Active confirmed Problem Pressure ulcer of unspecified part of back, stage 3 (L89.103) Active confirmed Problem Oropharyngeal dysphagia (06052759) Dysphagia, oropharyngeal phase (R13.12) Active confirmed Problem Abnormal gait (49062511) Other abnormalities of gait and mobility (R26.89) Active confirmed Problem 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) Cognitive communication deficit (R41.841) Active confirmed Problem Pressure injury of sacral region of back (disorder) (187841145) Pressure injury of skin of sacral region, unspecified injury stage (L89.159) Active confirmed Problem Decubitus ulcer of coccyx, 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 [address] [place] [address] 12/28/2024 Yasmeen Matta Interstitial pulmona ry disease, unspecified J84.9 ; Unspecified atrial fibrillation I48.91 and Physical deconditioning R53.[address] [place] [address] 01/06/2025 Yasmeen Paxton Interstitial pulmona ry disease, unspecified J84.9 ; Unspecified atrial fibrillation I48.91 and Physical deconditioning R53.[address] [address] 01/10/2025 Yasmeen Paxton Interstitial pulmona ry disease, unspecified J84.9 ; Unspecified atrial fibrillation I48.91 ; Physical deconditioning R53.81 and Decubitus ulcer of coccyx, stage III L89.[address] [address] 01/12/2025 Yasmeen Paxton Interstitial pulmona ry disease, unspecified J84.9 ; Unspecified atrial fibrillation I48.91 ; Physical deconditioning R53.81 and Decubitus ulcer of coccyx, stage III L89.[address] [address] 01/17/2025 Yasmeen Paxton Interstitial pulmona ry disease, unspecified J84.9 ; Unspecified atrial fibrillation I48.91 ; Physical deconditioning R53.81 and Decubitus ulcer of coccyx, stage III L89.[address] [address] 01/19/2025 Yasmeen Paxton Interstitial pulmona ry disease, unspecified J84.9 ; Unspecified atrial fibrillation I48.91 ; Physical deconditioning R53.81 ; Decubitus ulcer of coccyx, stage III L89.153 ; Tremor R25.1 and Cough, unspecified R05.[address] [address] 12/19/2024 Yasmeen Matta [address] [address] 12/20/2024 Yasmeen Matta [address] [address] 12/21/[address] [address] 12/22/[address] [address] 12/28/[address] [address] 01/04/2025 [place] [address] [address] 01/06/2025 MARIAMA ANDERSON [place] [address] [address] 01/10/2025 Yasmeen Matta [place] [address] [address] 01/13/2025 MARIAMA ANDERSON [place] [address] [address] 01/16/2025 MARIAMA ANDERSON [address] [address] 01/18/2025 Yasmeen Matta [address] [address] 01/24/2025 MARIAMA ANDERSON [address] [address] 01/24/2025 Yasmeen Matta Assessments Encounter Date Diagnosis (ICD Code) Assessment Notes Treatment Notes Treatment Clinical Notes Section Notes 12/28/2024 Unspecified atrial fibrillation (ICD-10 - I48.91) Rate controlled. Managed well on current medications. Continue current treatment plan and monitoring. 12/28/2024 Interstitial pulmonary disease, unspecified (ICD-10 - J84.9) Patient was diagnosed with interstitial lung disease in October, he has been dealing with this ever since. He is currently on Bactrim DS on Sundays, Tuesdays, and for the foreseeable future. He complains of having shortness of breath with exertion, he has utilizing 4-5 liters of supplemental O2. Physical therapy reports that his O2 stats drop into the low 80s and sometimes 70s with minimal exertion. Patient does have a plate and frame filter operator appointment on 01/04/2025. 01/06/2025 Interstitial pulmonary disease, unspecified (ICD-10 - J84.9) Patient was diagnosed with interstitial lung disease in October, he has been dealing with this ever since. He is currently on Bactrim DS on Sundays, Tuesdays, and for the foreseeable future. He complains of having shortness of breath with exertion, he has utilizing 4-5 liters of supplemental O2. Physical therapy reports that his O2 stats drop into the low 80s and sometimes 70s with minimal exertion. Patient had a follow-up appointment on 01/04 with his plate and frame filter operator, order was given to stop the albuterol treatments due to them not helping the patient and it makes him very jittery and shaky. Unsure of any other orders at this time. 01/12/2025 Interstitial pulmonary disease, unspecified (ICD-10 - J84.9) Patient was diagnosed with interstitial lung disease in October, he has been dealing with this ever since. He is currently on Bactrim DS on Sundays, Tuesdays, and for the foreseeable future. He complains of having shortness of breath with exertion, utilizes 5 liters of supplemental O2. Physical therapy reports that his O2 stats drop into the low 80s and sometimes 70s with minimal exertion. Patient had a follow-up appointment on 01/04 with his plate and frame filter operator, order was given to stop the albuterol treatments due to them not helping the patient and it makes him very jittery and shaky. Unsure of any other orders at this time. 01/19/2025 Unspecified atrial fibrillation (ICD-10 - I48.91) Rate controlled. Managed well on current medications. Continue current treatment plan and monitoring. 01/19/2025 Interstitial pulmonary disease, unspecified (ICD-10 - J84.9) Patient was diagnosed with interstitial lung disease in October, he has been dealing with this ever since. He is currently on Bactrim DS on Sundays, Tuesdays, and for the foreseeable future. He complains of having shortness of breath with exertion, utilizes 5 liters of supplemental O2. Physical therapy reports that his O2 stats drop into the low 80s and sometimes 70s with minimal exertion. Patient had a follow-up appointment on 01/04 with his plate and frame filter operator, order was given to stop the albuterol treatments due to them not helping the patient and it makes him very jittery and shaky. Unsure of any other orders at this time. 01/17/2025 Interstitial pulmonary disease, unspecified (ICD-10 - J84.9) Patient was diagnosed with interstitial lung disease in October, he has been dealing with this ever since. He is currently on Bactrim DS on Sundays, Tuesdays, and for the foreseeable future. He complains of having shortness of breath with exertion, utilizes 5 liters of supplemental O2. Physical therapy reports that his O2 stats drop into the low 80s and sometimes 70s with minimal exertion. Patient had a follow-up appointment on 01/04 with his plate and frame filter operator, order was given to stop the albuterol treatments due to them not helping the patient and it makes him very jittery and shaky. Unsure of any other orders at this time. 01/10/2025 Interstitial pulmonary disease, unspecified (ICD-10 - J84.9) Patient was diagnosed with interstitial lung disease in October, he has been dealing with this ever since. He is currently on Bactrim DS on Sundays, Tuesdays, and for the foreseeable future. He complains of having shortness of breath with exertion, he has utilizing 4-5 liters of supplemental O2. Physical therapy reports that his O2 stats drop into the low 80s and sometimes 70s with minimal exertion. Patient had a follow-up appointment on 01/04 with his plate and frame filter operator, order was given to stop the albuterol treatments due to them not helping the patient and it makes him very jittery and shaky. Unsure of any other orders at this time. 01/17/2025 Unspecified atrial fibrillation (ICD-10 - I48.91) Rate controlled. Managed well on current medications. Continue current treatment plan and monitoring. 01/10/2025 Unspecified atrial fibrillation (ICD-10 - I48.91) Rate controlled. Managed well on current medications. Continue current treatment plan and monitoring. 01/12/2025 Unspecified atrial fibrillation (ICD-10 - I48.91) Rate controlled. Managed well on current medications. Continue current treatment plan and monitoring. 01/19/2025 Physical deconditioning (ICD-10 - R53.81) Patient is working with PT and OT for strengthening and mobility. He reports therapy as going good. He is ambulatory, but pushes a wheelchair to carry his oxygen with him. Staff report he is getting out of his room more, he is going outside and sitting with other residents and being social. 12/28/2024 Physical deconditioning (ICD-10 - R53.81) Patient is working with PT and OT for strengthening and mobility. He reports that therapy is going okay, therapy reports that patient is not getting out of bed very much. He does use the walker to walk to the bathroom when they are there, but for the most part, he stays in bed. They have been encouraging him to sit up in the chair throughout the day. 01/06/2025 Unspecified atrial fibrillation (ICD-10 - I48.91) Rate controlled. Managed well on current medications. Continue current treatment plan and monitoring. 01/12/2025 Physical deconditioning (ICD-10 - R53.81) Patient is working with PT and OT for strengthening and mobility. He reports that therapy is going okay, therapy reports that patient is not getting out of bed very much. He does use the walker to walk to the bathroom when they are there, but for the most part, he stays in bed. They have been encouraging him to sit up in the chair throughout the day. Patient continues to spend most of his time in his bed, reports as due to the bed sores he has. 01/06/2025 Physical deconditioning (ICD-10 - R53.81) Patient is working with PT and OT for strengthening and mobility. He reports that therapy is going okay, therapy reports that patient is not getting out of bed very much. He does use the walker to walk to the bathroom when they are there, but for the most part, he stays in bed. They have been encouraging him to sit up in the chair throughout the day. 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 They are just using barrier cream and foam dressings for protection at this time. 01/17/2025 Physical deconditioning (ICD-10 - R53.81) Patient is working with PT and OT for strengthening and mobility. He reports therapy as going good. He is ambulatory, but pushes a wheelchair to carry his oxygen with him. Staff report he is getting out of his room more, he is going outside and sitting with other residents and being social. 01/10/2025 Physical deconditioning (ICD-10 - R53.81) Patient is working with PT and OT for strengthening and mobility. He reports that therapy is going okay, therapy reports that patient is not getting out of bed very much. He does use the walker to walk to the bathroom when they are there, but for the most part, he stays in bed. They have been encouraging him to sit up in the chair throughout the day. Patient continues to spend most of his time in his bed, reports as due to the bed sores he has. 01/10/2025 Decubitus ulcer of coccyx, stage III (ICD-10 - L89.153) Patient has three stage 3 wounds to his buttocks and coccyx area. He is being seen by SWM weekly as well as getting his dressings changed daily by the nursing staff. Patient reports he stays in bed due to the pain. 01/17/2025 Decubitus ulcer of coccyx, stage III (ICD-10 - L89.153) Spoke with the wound nurse today and she reports that all three of his areas on his buttocks and coccyx areas have healed. They are just using barrier cream and foam dressings for protection at this time. 01/19/2025 Tremor (ICD-10 - R25.1) Patient reports that he has had an increase in a tremor when he is trying to do things, he is wondering if any of his medications could be causing that. Upon review, only medication that could possibly be causing a tremor would be the prednisone he is on for his lungs. Encouraged patient to keep track of how often it is happening and how long it has been going on. Patient does have an appointment tomorrow 01/20/2025 with a cash register repairer. Encouraged him to also let them know just to see if they have any suggestions at this time. 01/12/2025 Decubitus ulcer of coccyx, stage III (ICD-10 - L89.153) Patient has three stage 3 wounds to his buttocks and coccyx area. He is being seen by SWM weekly as well as getting his dressings changed daily by the nursing staff. Patient reports he stays in bed due to the pain. Patient reports that the dressing is off and has not been on for a couple of days. Wound nurse to see patient today to assess and put new dressings on. 01/19/2025 Cough, unspecified (ICD-10 - R05.9) Patient has nonproductive cough throughout the night, COVID test was done, which was negative. Per facility protocol, patient has to be quarantined in his room until another COVID test is to be done in the morning. Patient reports it just feels like he has mucus stuck in his chest. No cough noted while talking to the patient. Order given for Mucinex DM one tab b.i.d. x5 days and then p.r.n. Also given order for Flonase one spray, both nares b.i.d. 01/12/2025 Other Continue curren t treatment plan.Staff to continue to monitor and report any changes.Patient education provided and questions/concern s addressed.Follow up in one week unless necessary sooner. 12/28/2024 Other Continue curren t treatment plan.Staff to continue to monitor and report any changes.Patient education provided and questions/concern s addressed.Follow up in one week unless necessary sooner. 01/19/2025 Other Continue curren t treatment plan.Staff to continue to monitor and report any changes.Patient education provided and questions/concern s addressed.Follow up in one week unless necessary sooner. 01/17/2025 Other Continue curren t treatment plan.Staff to continue to monitor and report any changes.Patient education provided and questions/concern s addressed.Follow up in one week unless necessary sooner. 01/06/2025 Other Continue curren t treatment plan.Staff to continue to monitor and report any changes.Patient education provided and questions/concern s addressed.Follow up in one week unless necessary sooner. 01/10/2025 Other Continue curren t treatment plan.Staff to continue to monitor and report any changes.Patient education provided and questions/concern s addressed.Follow up in one week unless necessary sooner. Plan Of Treatment Next Appt Details Provider Name:Yasmeen Matta , 01/26/2025 06:45:00 AM, [address] [facility] [address], [place], [address], Insurance Providers Payer Name Payer Address Payer Phone Subscriber Number Group Number Insured Name Patient Relationship to Insured Coverage Start Date Coverage End Date [employer] [place] [address] [place], [place] [id number] Zack Fofana Self - patient is the insured Medical (General) History Medical History History ICD Code Interstitial pulmonary disease, unspecif ied J84.9 Pulmonary fibrosis J84.10 Unspecified atrial fibrillation I48.91 Muscle weakness (generalized) M62.81 Other abnormalities of gait and mobility R26.89 Dysphagia, oropharyngeal phase R13.12 Unspecified protein-calorie malnutrition E46 Diabetes mellitus due to underlying cond ition with unspecified complications E08.8 Cardiomegaly I51.7 Pressure injury of skin of sacral region , unspecified injury stage L89.159 Gastro-esophageal reflux disease without esophagitis K21.9 Constipation, unspecified K59.00 Unspecified skin changes R23.9 Dyspnea, unspecified R06.00 Nausea and vomiting in adult R11.2 Hypotension, unspecified I95.9 Allergic rhinitis, unspecified J30.9 Hypo-osmolality and hyponatremia E87.1 Insomnia, unspecified G47.00 Respiratory bronchiolitis interstitial l anastacio disease J84.115 Cognitive communication deficit R41.841 Pain, unspecified R52 Cough, unspecified R05.9 Need for assistance with personal care Z 74.1 Surgical History Surgery Date(Month/Year) NO PREVIOUS SURGERIES
--- OUTSIDE RECORDS SUMMARY | 2025-01-24 14:39 | XMS_ITS | Encounter Summary ---
Author Organization [facility] Address [address] [place] [address] Care Team Providers Care Coach Driver Name Role Phone Unavailable Primary Care Provider Unavailabl e Encounter Details Date Type Department Care Team (Late st Contact Info) Description 11/15/2024 Lab Requisition [facility] Laboratory Services [address] [place] [address] [place] [address] [place] [address] Social History Tobacco Use Types [...] Associated Diagnosis Comments CBC WITH DIFFERENTIAL Routine 11/15/2024 4:00 AM CDT BASIC METABOLIC PANEL Routine 11/15/2024 4:00 AM CDT documented in this encounter Results * (ABNORMAL) CBC WITH DIFFERENTIAL (11/15/2024 4:00 AM CDT) WBC 8.9 4.0 - 9.8 K/uL 11/15/2024 7:35 AM CDT [facility] - [facility] RBC 3.74(L) 4.50 - 5.40 M/uL 11/15/2024 7:35 AM CDT [facility] - [facility] HEMOGLOBIN 10.5(L) 13.6 - 16.5 g/dL 11/15/2024 7:35 AM CDT [facility] HEMATOCRIT 32.3(L) 40.0 - 48.0 % 11/15/2024 7:35 AM CDT [facility] MCV 86.4 82.0 - 99.0 fL 11/15/2024 7:35 AM CDT [facility] MCH 28.1 27.2 - 32.6 pg 11/15/2024 7:35 AM CDT [facility] MCHC 32.5 31.5 - 35.5 g/dL 11/15/2024 7:35 AM CDT [facility] RDW 14.6(H) 11.5 - 14.5 % 11/15/2024 7:35 AM CDT [facility] RDW-STDEV 44.9 37.1 - 48.7 fL 11/15/2024 7:35 AM CDT [facility] PLATELETS 137(L) 140 - 350 K/uL 11/15/2024 7:35 AM CDT [facility] MPV 10.3 9.3 - 12.4 fL 11/15/2024 7:35 AM CDT [facility] NEUTROPHILS 91 % 11/15/2024 7:35 AM CDT [facility] LYMPHOCYTES 5 % 11/15/2024 7:35 AM CDT [facility] MONOCYTES 3 % 11/15/2024 7:35 AM CDT [facility] EOSINOPHILS 0 % 11/15/2024 7:35 AM CDT [facility] BASOPHILS 0 % 11/15/2024 7:35 AM CDT [facility] IMMATURE GRANULOCYTES 1 % 11/15/2024 7:35 AM CDT [facility] Comment:IG (Immature Granulo cyte) count includes Metamyelocytes, Myelocytes, and Promyelocytes NEUTROPHIL ABSOLUTE 8.12(H) 1.90 - 7.00 K/uL 11/15/2024 7:35 AM CDT [facility] LYMPHOCYTE ABSOLUTE 0.46(L) 0.70 - 4.50 K/uL 11/15/2024 7:35 AM CDT [facility] MONOCYTE ABSOLUTE 0.25 0.10 - 1.30 K/uL 11/15/2024 7:35 AM CDT [facility] EOSINOPHIL ABSOLUTE 0.00 0.00 - 0.70 K/uL 11/15/2024 7:35 AM CDT [facility] BASOPHILS ABSOLUTE 0.01 0.00 - 0.20 K/uL 11/15/2024 7:35 AM CDT [facility] IMMATURE GRANULOCYTES ABSOLUTE 0.07(H) 0.00 - 0.03 K/uL 11/15/2024 7:35 AM CDT [facility] Blood 11/15/2024 4:00 AM CDT 11/15/2024 6:50 AM CDT us Darlin Stapleton MD HEMATOLOGY ORDERABLES Final Resu lt [facility] CLIA# [id number] [place] [address] * (ABNORMAL) BASIC METABOLIC PANEL (11/15/2024 4:00 AM CDT) SODIUM 135(L) 136 - 145 mmol/L 11/15/2024 8:14 AM CDT [facility] POTASSIUM 5.4(H) 3.4 - 5.1 mmol/L 11/15/2024 8:14 AM CDT [facility] CHLORIDE 104 98 - 107 mmol/L 11/15/2024 8:14 AM CDT [facility] CO2 22 22 - 29 mmol/L 11/15/2024 8:14 AM CDT [facility] CALCIUM 7.7(L) 8.6 - 10.4 mg/dL 11/15/2024 8:14 AM CDT [facility] BUN 35(H) 6 - 20 mg/dL 11/15/2024 8:14 AM CDT [facility] CREATININE 1.23(H) 0.67 - 1.17 mg/dL 11/15/2024 8:14 AM T [facility] Comment:The GFR result is no t clinically significant on patients <18 or >70 years of age. GLUCOSE 95 74 - 99 mg/dL 11/15/2024 8:14 AM CDT [facility] GFR 59 mL/min/1.7 3 sq meter 11/15/2024 8:14 AM T [facility] Comment:eGFR calculated with 2020 CKD-EPI equation. Vegetarian diet, extremely high or low muscle mass, and may affect results. Cystatin C with Glomerular Filtration Rate is a suitable alternative for these patients. ANION GAP 9 8 - 16 mmol/L 11/15/2024 8:14 AM T [facility] Blood 11/15/2024 4:00 AM CDT 11/15/2024 6:50 AM CDT Darlin Stapleton MD CHEMISTRY ORDERABLES Final Resul t [facility] CLIA# [id number] [place] [address] documented in this encounter Visit Diagnoses Not [...] the following 6 months, and once thereafter ([id number], Chuyita auris surveillance screening). If negative screen 6 months, R/O C. auris status can be removed. 11/08/2024 12/19/2024 documented as of this encounter
--- OUTSIDE RECORDS SUMMARY | 2025-01-24 14:39 | XMS_ITS | Encounter Summary ---
Author Organization [facility] Address [address] [place] [address] Care Team Providers Care Mill Tender Warm Up Name Role Phone Unavailable Primary Care Provider Unavailabl e Encounter Details Date Type Department Care Team (Late st Contact Info) Description 11/18/2024 Lab Requisition [facility] Laboratory Services [address] [place] [address] [place] [address] [place] [address] Social History Tobacco Use Types [...] Associated Diagnosis Comments CBC WITH DIFFERENTIAL Routine 11/18/2024 4:00 AM CDT BASIC METABOLIC PANEL Routine 11/18/2024 4:00 AM CDT documented in this encounter Results * (ABNORMAL) BASIC METABOLIC PANEL (11/18/2024 4:00 AM CDT) SODIUM 137 136 - 145 mmol/L 11/18/2024 10:54 AM CDT [facility]ORY SERVICES - [facility] POTASSIUM 4.7 3.4 - 5.1 mmol/L 11/18/2024 10:54 AM CDT [facility] SERVICES - [facility] CHLORIDE 105 98 - 107 mmol/L 11/18/2024 10:54 AM CDT [facility] SERVICES - [facility] CO2 22 22 - 29 mmol/L 11/18/2024 10:54 AM CDT [facility] CALCIUM 8.6 8.6 - 10.4 mg/dL 11/18/2024 10:54 AM CDT [facility] BUN 34(H) 6 - 20 mg/dL 11/18/2024 10:54 AM CDT [facility] CREATININE 1.20(H) 0.67 - 1.17 mg/dL 11/18/2024 10:54 AM CDT [facility] Comment:The GFR result is no t clinically significant on patients <18 or >70 years of age. GLUCOSE 97 74 - 99 mg/dL 11/18/2024 10:54 AM T [facility] GFR >60 mL/min/1.7 3 sq meter 11/18/2024 10:54 AM T [facility] Comment:eGFR calculated with 2020 CKD-EPI equation. Vegetarian diet, extremely high or low muscle mass, and may affect results. Cystatin C with Glomerular Filtration Rate is a suitable alternative for these patients. ANION GAP 10 8 - 16 mmol/L 11/18/2024 10:54 AM T [facility] Blood 11/18/2024 4:00 AM CDT 11/18/2024 10:20 AM CDT us Darlin Stapleton MD CHEMISTRY ORDERABLES Final Resul t [facility] CLIA# [id number] [place] [address] * (ABNORMAL) CBC WITH DIFFERENTIAL (11/18/2024 4:00 AM CDT) WBC 8.1 4.0 - 9.8 K/uL 11/18/2024 10:28 AM CDT [facility] RBC 3.82(L) 4.50 - 5.40 M/uL 11/18/2024 10:28 AM CDT [facility] HEMOGLOBIN 11.0(L) 13.6 - 16.5 g/dL 11/18/2024 10:28 AM CDT [facility]ORY [facility] HEMATOCRIT 33.2(L) 40.0 - 48.0 % 11/18/2024 10:28 AM CDT [facility] MCV 86.9 82.0 - 99.0 fL 11/18/2024 10:28 [facility] 28.8 27.2 - 32.6 pg 11/18/2024 10:28 AM CDT [facility] MCHC 33.1 31.5 - 35.5 g/dL 11/18/2024 10:28 AM CDT [facility] RDW 14.9(H) 11.5 - 14.5 % 11/18/2024 10:28 [facility] RDW-STDEV 46.9 37.1 - 48.7 fL 11/18/2024 10:28 AM CDT [facility] PLATELETS 105(L) 140 - 350 K/uL 11/18/2024 10:28 [facility] Glo Bags [facility] MPV 10.4 9.3 - 12.4 fL 11/18/2024 10:28 AM CDT [facility] NEUTROPHILS 92 % 11/18/2024 10:28 AM CDT [facility] LYMPHOCYTES 4 % 11/18/2024 10:28 AM CDT [facility] MONOCYTES 3 % 11/18/2024 10:28 AM CDT [facility] EOSINOPHILS 0 % 11/18/2024 10:28 AM CDT [facility] BASOPHILS 0 % 11/18/2024 10:28 AM CDT [facility] IMMATURE GRANULOCYTES 1 % 11/18/2024 10:28 AM CDT [facility] Comment:IG (Immature Granulo cyte) count includes Metamyelocytes, Myelocytes, and Promyelocytes NEUTROPHIL ABSOLUTE 7.41(H) 1.90 - 7.00 K/uL 11/18/2024 10:28 AM CDT [facility] LYMPHOCYTE ABSOLUTE 0.33(L) 0.70 - 4.50 K/uL 11/18/2024 10:28 AM CDT [facility] MONOCYTE ABSOLUTE 0.27 0.10 - 1.30 K/uL 11/18/2024 10:28 AM CDT [facility] LABORATORY [facility] EOSINOPHIL ABSOLUTE 0.00 0.00 - 0.70 K/uL 11/18/2024 10:28 AM CDT [facility] BASOPHILS ABSOLUTE 0.01 0.00 - 0.20 K/uL 11/18/2024 10:28 AM CDT [facility] IMMATURE GRANULOCYTES ABSOLUTE 0.07(H) 0.00 - 0.03 K/uL 11/18/2024 10:28 AM CDT [facility] Blood 11/18/2024 4:00 AM CDT 11/18/2024 10:20 AM CDT Darlin Stapleton MD HEMATOLOGY ORDERABLES Final Resu lt [facility] CLIA# [id number] [place] [address] documented in this encounter Visit Diagnoses Not [...] the following 6 months, and once thereafter ([id number], Chuyita auris surveillance screening). If negative screen 6 months, R/O C. auris status can be removed. 11/08/2024 12/19/2024 documented as of this encounter
--- OUTSIDE RECORDS SUMMARY | 2025-01-24 14:39 | XMS_ITS | Encounter Summary ---
Author Organization [facility] Address [address] [place] [address] Care Team Providers Care Production Grader Name Role Phone Unavailable Primary Care Provider Unavailabl e Encounter Details Date Type Department Care Team (Late st Contact Info) Description 11/24/2024 Lab Requisition [facility] Laboratory Services [address] [place] [address] [place] [address] [place] [address] Social History Tobacco Use Types [...] Associated Diagnosis Comments CBC WITH DIFFERENTIAL Routine 11/24/2024 3:00 AM CDT BASIC METABOLIC PANEL Routine 11/24/2024 3:00 AM CDT documented in this encounter Results * (ABNORMAL) CBC WITH DIFFERENTIAL (11/24/2024 3:00 AM CDT) WBC 4.9 4.0 - 9.8 K/uL 11/24/2024 8:32 AM CDT [facility]OR[facility] RBC 4.28(L) 4.50 - 5.40 M/uL 11/24/2024 8:32 AM CDT [facility] HEMOGLOBIN 12.2(L) 13.6 - 16.5 g/dL 11/24/2024 8:32 AM CDT [facility] HEMATOCRIT 36.3(L) 40.0 - 48.0 % 11/24/2024 8:32 AM CDT [facility] MCV 84.8 82.0 - 99.0 fL 11/24/2024 8:32 AM CDT [facility] MCH 28.5 27.2 - 32.6 pg 11/24/2024 8:32 AM CDT [facility] MCHC 33.6 31.5 - 35.5 g/dL 11/24/2024 8:32 AM CDT [facility] RDW 15.4(H) 11.5 - 14.5 % 11/24/2024 8:32 AM CDT [facility] RDW-STDEV 47.3 37.1 - 48.7 fL 11/24/2024 8:32 AM CDT [facility] PLATELETS 67(L) 140 - 350 K/uL 11/24/2024 8:32 AM CDT [facility] MPV 11.0 9.3 - 12.4 fL 11/24/2024 8:32 AM CDT [facility] NEUTROPHILS 77 % 11/24/2024 8:32 AM CDT [facility] LYMPHOCYTES 16 % 11/24/2024 8:32 AM CDT [facility] MONOCYTES 4 % 11/24/2024 8:32 AM CDT [facility] EOSINOPHILS 2 % 11/24/2024 8:32 AM CDT [facility] BASOPHILS 0 % 11/24/2024 8:32 AM CDT [facility] IMMATURE GRANULOCYTES 1 % 11/24/2024 8:32 AM CDT [facility] Comment:IG (Immature Granulo cyte) count includes Metamyelocytes, Myelocytes, and Promyelocytes NEUTROPHIL ABSOLUTE 3.75 1.90 - 7.00 K/uL 11/24/2024 8:32 AM CDT [facility] LYMPHOCYTE ABSOLUTE 0.77 0.70 - 4.50 K/uL 11/24/2024 8:32 AM CDT [facility] MONOCYTE ABSOLUTE 0.20 0.10 - 1.30 K/uL 11/24/2024 8:32 AM CDT [facility] EOSINOPHIL ABSOLUTE 0.09 0.00 - 0.70 K/uL 11/24/2024 8:32 AM CDT [facility] BASOPHILS ABSOLUTE 0.01 0.00 - 0.20 K/uL 11/24/2024 8:32 AM CDT [facility] IMMATURE GRANULOCYTES ABSOLUTE 0.05(H) 0.00 - 0.03 K/uL 11/24/2024 8:32 AM CDT [facility] Blood Collection / Unknown 11/24/2024 3:00 AM CDT 11/24/2024 7:58 AM CDT us Darlin Stapleton MD HEMATOLOGY ORDERABLES Final Resu lt [facility] CLIA# [id number] [place] [address] * (ABNORMAL) BASIC METABOLIC PANEL (11/24/2024 3:00 AM CDT) SODIUM 133(L) 136 - 145 mmol/L 11/24/2024 8:37 AM CDT [facility] POTASSIUM 4.2 3.4 - 5.1 mmol/L 11/24/2024 8:37 AM CDT [facility] CHLORIDE 99 98 - 107 mmol/L 11/24/2024 8:37 AM CDT [facility] CO2 21(L) 22 - 29 mmol/L 11/24/2024 8:37 AM CDT [facility] CALCIUM 7.9(L) 8.6 - 10.4 mg/dL 11/24/2024 8:37 AM CDT [facility] BUN 32(H) 6 - 20 mg/dL 11/24/2024 8:37 AM CDT [facility] CREATININE 1.24(H) 0.67 - 1.17 mg/dL 11/24/2024 8:37 AM T [facility] Comment:The GFR result is no t clinically significant on patients <18 or >70 years of age. GLUCOSE 81 74 - 99 mg/dL 11/24/2024 8:37 AM T [facility] GFR 59 mL/min/1.7 3 sq meter 11/24/2024 8:37 AM T [facility] Comment:eGFR calculated with 2020 CKD-EPI equation. Vegetarian diet, extremely high or low muscle mass, and may affect results. Cystatin C with Glomerular Filtration Rate is a suitable alternative for these patients. ANION GAP 13 8 - 16 mmol/L 11/24/2024 8:37 AM T [facility] Blood Collection / Unknown 11/24/2024 3:00 AM CDT 11/24/2024 7:58 AM CDT Darlin Stapleton MD CHEMISTRY ORDERABLES Final Resul t [facility] CLIA# [id number] [id number] [place] [address] documented in this encounter Visit Diagnoses Not [...] the following 6 months, and once thereafter ([id number], Chuyita auris surveillance screening). If negative screen 6 months, R/O C. auris status can be removed. 11/08/2024 12/19/2024 documented as of this encounter
--- OUTSIDE RECORDS SUMMARY | 2025-01-24 14:39 | XMS_ITS | Encounter Summary ---
Author Organization [facility] Address [address] [place] [address] Phone Care Team Providers Care Cover Stitch Machine Operator Name Role Phone Manuel Ravi MD Primary Care Provider [phone] Abraham Lazaro MD Unavailable Kathleen Aviles HR RECRUITER, HOT TAR ROOFER HELPER Primary Care Provider [phone] Reason for Visit * Reason Comments Medication Refill Encounter Details Date Type Department Care Team (Late st Contact Info) Description 06/26/2021 Refill [facility] - Primary Care - [place] [address] [place] [address] Manuel Ravi MD [address] [place], [place] [id number] Medication Refill Social History Tobacco Use Types Packs/Day Years Used Date Smoking Tobacco: Never Smokeless Tobacco: Never Alcohol Use Standard Drinks/Week Comments Never 0 (1 standard drink = 0.6 oz pur e alcohol) PHQ-2 Answer Date Recorded Total Score - Questions 1-9 0 06/12 Sexually Active Control Partners Comments Yes Sex and Gender Information Value Date Recorded Sex Assigned at Not on file Legal Sex Male 11:52 PM CDT Gender Identity Not on file Sexual Orientation Not on file documented as of this encounter Plan of Treatment Upcoming Encounters Date Type Department Care Team (Late st Contact Info) Description 02/03/2025 1:00 PM CDT [facility] [place] [address] [place] [id number] Kathleen Aviles, HR RECRUITER, HOT TAR ROOFER HELPER [address] [place] [address] documented as of this encounter Visit Diagnoses Not on filedocumented in this encounter Additional Health Concerns Infection Onset Date Last Indicated Resolved Time Respiratory Rule Out - RPA 08/12/2022 08/12/2022 0 08/12/2022 4:45 PM CDT COVID - 19 10/19/2024 10/19/2024 10/19/2024 1:08 PM CDT COVID - 19 11/03/2024 11/03/2024 11/13/2024 11:0 0 PM CDT COVID - 19 Confirmed 11/03/2024 11/03/2024 025 11:00 PM CDT Assessment Noted Time PHQ-9 Depression Total Score: 0 07/01/19 20 10:00 AM TRANSIT AUTHORITY POLICE OFFICER documented as of this encounter Care Teams Cover Stitch Machine Operator Relationship Specialty Start Date End Date Manuel Ravi MD [address] [place] [address] PCP - General Internal Medicine 05/15/18 01/31/24 Kathleen Aivles, HR RECRUITER, HOT TAR ROOFER HELPER [address] [place] [address] PCP - General Certified Nurse Practitioner 02/01/24 Abraham Lazaro MD [address] [address] Consulting Physician Endocrinology 07/19/21 documented as of this encounter
--- OUTSIDE RECORDS SUMMARY | 2025-01-24 14:39 | XMS_ITS | Encounter Summary ---
Author Organization [facility] Address [address] [place] [address] Phone Care Team Providers Care Cloth Bleaching Range Tender Name Role Phone Manuel Ravi MD Primary Care Provider [phone] Abraham Lazaro MD Unavailable Kathleen Aviles SURGICAL ELASTIC KNITTER, DATA WAREHOUSING ARCHITECT Primary Care Provider [phone]- [phone] Reason for Visit * Reason Comments Medication Refill Encounter Details Date Type Department Care Team (Late st Contact Info) Description 01/21/[address] [facility] - Primary Care - [place] [address] [place] [address] Manuel Ravi MD [address] [place], [place] [id number] Medication Refill Social History Tobacco Use Types [...] on file Sexual Orientation Not on file COVID-19 Exposure Response Date Recorded In the last month, have you been in contact with someone who was confirmed or suspected to have Coronavirus / COVID-19? No / Unsure 01/24/2021 1:41 PM CDT documented as of this encounter Miscellaneous Notes * Telephone Encounter - Francisca Forbes RN - 01/21/2021 2:02 PM CDT duplicate documented in this encounter Plan of Treatment Upcoming Encounters Date Type Department Care Team (Late st Contact Info) Description 02/03/2025 1:00 PM CDT Office Visit [facility] - Primary Care - [place] [address] [place] [address] Kathleen Aviles, SURGICAL ELASTIC KNITTER, DATA WAREHOUSING ARCHITECT [address] [place] [address] documented as of this encounter Visit Diagnoses [...] Total Score: 0 07/01/19 20 10:00 AM CREDIT CARD CONTROL CLERK documented as of this encounter Care Teams Cloth Bleaching Range Tender Relationship Specialty Start Date End Date Manuel Ravi MD [address] [place] [address] PCP - General Internal Medicine 05/15/18 01/31/24 Kathleen Aviles, SURGICAL ELASTIC KNITTER, DATA WAREHOUSING ARCHITECT [address] [place] [address] PCP - General Certified Nurse Practitioner 02/01/24 Abraham Lazaro MD [address] [address] Consulting Physician Endocrinology 07/19/21 documented as of this encounter
--- OUTSIDE RECORDS SUMMARY | 2025-01-24 14:39 | XMS_ITS | Encounter Summary ---
Author Organization [facility] Address [address] [place] [address] Care Team Providers Care Field Assistant Name Role Phone Unavailable Primary Care Provider Unavailabl e Encounter Details Date Type Department Care Team (Late st Contact Info) Description 11/16/2024 Lab Requisition [facility] [address] [place] [address] [place] [id number] [place] [address] Social History Tobacco Use Types [...] Procedure Name Priority Date/Time Associated Diagnosis Comments RENAL FUNCTION PANEL Routine 11/16/2024 3:20 AM CDT documented in this encounter Results * (ABNORMAL) RENAL FUNCTION PANEL (11/16/2024 3:20 AM CDT) SODIUM 137 136 - 145 mmol/L 11/16/2024 8:03 AM CDT [facility] - [facility] POTASSIUM 4.8 3.4 - 5.1 mmol/L 11/16/2024 8:03 AM CDT [facility] - [facility] CHLORIDE 105 98 - 107 mmol/L 11/16/2024 8:03 AM CDT [facility] CO2 23 22 - 29 mmol/L 11/16/2024 8:03 AM CDT [facility] - [facility] CALCIUM 8.3(L) 8.6 - 10.4 mg/dL 11/16/2024 8:03 AM T [facility] BUN 33(H) 6 - 20 mg/dL 11/16/2024 8:03 AM T [facility] CREATININE 1.12 0.67 - 1.17 mg/dL 11/16/2024 8:03 AM T [facility] Comment:The GFR result is no t clinically significant on patients <18 or >70 years of age. GLUCOSE 53(LL) 74 - 99 mg/dL 11/16/2024 8:03 AM T [facility] ALBUMIN 2.9(L) 3.5 - 5.2 g/dL 11/16/2024 8:03 AM T [facility] PHOSPHORUS 3.8 2.5 - 4.5 mg/dL 11/16/2024 8:03 AM T [facility] GFR >60 mL/min/1.7 3 sq meter 11/16/2024 8:03 AM T [facility] Comment:eGFR calculated with 2020 CKD-EPI equation. Vegetarian diet, extremely high or low muscle mass, and may affect results. Cystatin C with Glomerular Filtration Rate is a suitable alternative for these patients. ANION GAP 9 8 - 16 mmol/L 11/16/2024 8:03 AM T [facility] Blood Collection / Unknown 11/16/2024 3:20 AM CDT 11/16/2024 7:04 AM CDT us Darlin Stapleton MD CHEMISTRY ORDERABLES Final Resul t [facility] CLIA# [id number] [place] [address] documented in this encounter Visit Diagnoses Not [...] the following 6 months, and once thereafter ([id number], Chuyita auris surveillance screening). If negative screen 6 months, R/O C. auris status can be removed. 11/08/2024 12/19/2024 documented as of this encounter
--- OUTSIDE RECORDS SUMMARY | 2025-01-24 14:39 | XMS_ITS | Encounter Summary ---
Author Organization [facility] Address [address] [place] [address] Care Team Providers Care Reservations Sales Agent Name Role Phone Unavailable Primary Care Provider Unavailabl e Encounter Details Date Type Department Care Team (Late st Contact Info) Description 11/09/2024 Lab Requisition [facility] [address] [place] [address] [place] [address] [place] [address] Social History Tobacco Use Types [...] Associated Diagnosis Comments CBC WITH DIFFERENTIAL Routine 11/09/2024 3:00 AM CDT PTT Routine 11/09/2024 3:00 AM CDT PROTIME-INR Routine 11/09/2024 3:00 AM CDT PREALBUMIN Routine 11/09/2024 3:00 AM CDT COMPREHENSIVE METABOLIC PANEL Routine 11/09/2024 3:00 AM CDT documented in this encounter Results * PTT (11/09/2024 3:00 AM CDT) PTT 30.2 23.1 - 37.1 seconds 11/09/2024 9:20 AM CDT [facility] Blood Collection / Unknown 11/09/2024 3:00 AM CDT 11/09/2024 9:19 AM CDT Polo Ochoa MD HEMATOLOGY ORDERABLES Final Res ult [facility] CLIA# [id number] [address] [place] [address] * (ABNORMAL) PROTIME-INR (11/09/2024 3:00 AM CDT) PROTIME 15.9(H) 11.5 - 14.7 Seconds 11/09/2024 9:20 AM CDT [facility] INR 1.3(H) 0.9 - 1.1 11/09/2024 9:20 AM CDT [facility] Blood Collection / Unknown 11/09/2024 3:00 AM CDT 11/09/2024 9:19 AM CDT Polo Ochoa MD HEMATOLOGY ORDERABLES Final Res ult Performing Organization Address City/[facility]/ZIP Co de Phone Number [facility] CLIA# [id number] [place] [address] * PREALBUMIN (11/09/2024 3:00 AM CDT) PREALBUMIN 21 20 - 40 mg/dL 11/09/2024 11:21 AM CDT [facility] Blood Collection / Unknown 11/09/2024 3:00 AM CDT 11/09/2024 9:19 AM CDT Polo Ochoa MD CHEMISTRY ORDERABLES Final Resu lt [facility] CLIA# [id number] [address] [place] [address] * (ABNORMAL) CBC WITH DIFFERENTIAL (11/09/2024 3:00 AM CDT) [facility] WBC 9.6 4.0 - 9.8 K/uL 11/09/2024 9:25 AM CDT [facility] RBC 4.11(L) 4.50 - 5.40 M/uL 11/09/2024 9:25 AM CDT [facility] HEMOGLOBIN 11.7(L) 13.6 - 16.5 g/dL 11/09/2024 9:25 AM CDT [facility] HEMATOCRIT 35.7(L) 40.0 - 48.0 % 11/09/2024 9:25 AM CDT [facility] MCV 86.9 82.0 - 99.0 fL 11/09/2024 9:25 AM CDT [facility] MCH 28.5 27.2 - 32.6 pg 11/09/2024 9:25 AM CDT [facility] MCHC 32.8 31.5 - 35.5 g/dL 11/09/2024 9:25 AM CDT [facility] RDW 14.0 11.5 - 14.5 % 11/09/2024 9:25 AM CDT [facility] RDW-STDEV 43.8 37.1 - 48.7 fL 11/09/2024 9:25 AM CDT [facility] PLATELETS 250 140 - 350 K/uL 11/09/2024 9:25 AM CDT [facility] MPV 10.0 9.3 - 12.4 fL 11/09/2024 9:25 AM CDT [facility] NEUTROPHILS 89 % 11/09/2024 9:25 AM CDT [facility] LYMPHOCYTES 6 % 11/09/2024 9:25 AM CDT [facility] MONOCYTES 3 % 11/09/2024 9:25 AM CDT [facility] EOSINOPHILS 0 % 11/09/2024 9:25 AM CDT [facility] BASOPHILS 0 % 11/09/2024 9:25 AM CDT [facility] IMMATURE GRANULOCYTES 2 % 11/09/2024 9:25 AM CDT [facility] Comment:IG (Immature Granulo cyte) count includes Metamyelocytes, Myelocytes, and Promyelocytes NEUTROPHIL ABSOLUTE 8.50(H) 1.90 - 7.00 K/uL 11/09/2024 9:25 AM CDT [facility] LYMPHOCYTE ABSOLUTE 0.58(L) 0.70 - 4.50 K/uL 11/09/2024 9:25 AM CDT [facility] MONOCYTE ABSOLUTE 0.32 0.10 - 1.30 K/uL 11/09/2024 9:25 AM CDT [facility] EOSINOPHIL ABSOLUTE 0.01 0.00 - 0.70 K/uL 11/09/2024 9:25 AM CDT [facility] BASOPHILS ABSOLUTE 0.02 0.00 - 0.20 K/uL 11/09/2024 9:25 AM CDT [facility] IMMATURE GRANULOCYTES ABSOLUTE 0.14(H) 0.00 - 0.03 K/uL 11/09/2024 9:25 AM CDT [facility] Blood Collection / Unknown 11/09/2024 3:00 AM CDT 11/09/2024 9:19 AM CDT us Polo Ochoa MD HEMATOLOGY ORDERABLES Final Res ult [facility] CLIA# [id number] [place] [address] * (ABNORMAL) COMPREHENSIVE METABOLIC PANEL (11/09/2024 3:00 AM CDT) SODIUM 140 136 - 145 mmol/L 11/09/2024 9:21 AM CDT [facility] POTASSIUM 4.5 3.4 - 5.1 mmol/L 11/09/2024 9:21 AM [facility] CHLORIDE 105 98 - 107 mmol/L 11/09/2024 9:21 AM [facility] CO2 26 22 - 29 mmol/L 11/09/2024 9:21 AM [facility] CALCIUM 8.5(L) 8.6 - 10.4 mg/dL 11/09/2024 9:21 AM [facility] BUN 49(H) 6 - 20 mg/dL 11/09/2024 9:21 AM [facility] CREATININE 1.20(H) 0.67 - 1.17 mg/dL 11/09/2024 9:21 AM [facility] Comment:The GFR result is no t clinically significant on patients <18 or >70 years of age. GLUCOSE 87 74 - 99 mg/dL 11/09/2024 9:21 AM [facility] TOTAL PROTEIN 5.4(L) 6.3 - 8.7 g/dL 11/09/2024 9:21 AM [facility] ALBUMIN 3.0(L) 3.5 - 5.2 g/dL 11/09/2024 9:21 AM [facility] BILIRUBIN TOTAL 0.5 0.0 - 1.1 mg/dL 11/09/2024 9:21 AM [facility] ALKALINE PHOSPHATASE 100 40 - 150 U/L 11/09/2024 9:21 AM [facility] AST 13 0 - 41 U/L 11/09/2024 9:21 AM [facility] ALT 44(H) 0 - 41 U/L 11/09/2024 9:21 AM [facility] GFR >60 mL/min/1.7 3 sq meter 11/09/2024 9:21 AM [facility] Comment:eGFR calculated with 2020 CKD-EPI equation. Vegetarian diet, extremely high or low muscle mass, and may affect results. Cystatin C with Glomerular Filtration Rate is a suitable alternative for these patients. ANION GAP 9 8 - 16 mmol/L 11/09/2024 9:21 AM CDT [facility] Blood Collection / Unknown 11/09/2024 3:00 AM CDT 11/09/2024 9:19 AM CDT Polo Ochoa MD CHEMISTRY ORDERABLES Final Resu lt [facility] CLIA# [id number] [address] [place] [address] documented in this encounter Visit Diagnoses Not [...] the following 6 months, and once thereafter ([id number], Chuyita auris surveillance screening). If negative screen 6 months, R/O C. auris status can be removed. 11/08/2024 12/19/2024 documented as of this encounter
--- OUTSIDE RECORDS SUMMARY | 2025-01-24 14:40 | XMS_ITS | Encounter Summary ---
Author Organization [facility] Address [address] [place] [address] Phone Care Team Providers Care Equipment Detailer Name Role Phone Manuel Ravi MD Primary Care Provider [phone] Abraham Lazaro MD Unavailable Kathleen Aviles HOLISTIC HEALTH PRACTITIONER, TELEVISION WRITER Primary Care Provider [phone] Reason for Visit * Reason Comments Medication Refill Encounter Details Date Type Department Care Team (Late st Contact Info) Description 01/20/2021 Refill [facility] - Primary Care - [place] [address] [place] [address] Manuel Ravi MD [address] [place], [place] [id number] Medication Refill Social History Tobacco Use Types [...] have Coronavirus / COVID-19? No / Unsure 01/18/2021 9:58 AM CDT documented as of this encounter Plan of Treatment Upcoming Encounters Date Type Department Care Team (Late st Contact Info) Description 02/03/2025 1:00 PM CDT Office Visit [facility] - Primary Care - [place] [address] [place] [address] Kathleen Aviles APRN, TELEVISION WRITER [address] [place] [address] documented as of this encounter Visit Diagnoses [...] Total Score: 0 07/01/19 20 10:00 AM SEPTIC TANK SERVICE TECHNICIAN documented as of this encounter Care Teams Equipment Detailer Relationship Specialty Start Date End Date Manuel Ravi MD [address] [place] [address] PCP - General Internal Medicine 05/15/18 01/31/24 Kathleen Aviles APRN, TELEVISION WRITER [address] [place] [address] PCP - General Certified Nurse Practitioner 02/01/24 Abraham Lazaro MD [address] [address] Consulting Physician Endocrinology 07/19/21 documented as of this encounter
--- OUTSIDE RECORDS SUMMARY | 2025-01-24 14:40 | XMS_ITS | Clinical Summary ---
Author Organization [facility] Address [address], [facility] [address] [place] [address] Phone Care Team Providers Care Medical Information Officer Name Role Phone Abraham Lazaro MD Unavailable Kathleen Aviles APRN, [employer] Primary Care Provider [phone] Allergies No known active allergies Medications albuterol 108 (90 Base) MCG/ACT Aerosol SolutionIndicat ions:Cough, unspecified type,URI with cough and congestion take 2 Puffs by inhalation every 4 hours as needed for Wheezing or Cough. 8 g 08/13/19 23 Active OneTouch Delica Lancets 33G MiscIndications :Type 2 diabetes mellitus without complication, without long-term current use of insulin 1 Lancet by Does not apply route daily. 100 Lancet 3 12/11/19 23 Active Blood Glucose Monitoring Suppl (D-Care Glucometer) w/Device KitIndications: Type 2 diabetes mellitus without complication, without long-term current use of insulin 1 Units by Does not apply route daily. Whichever device covered by insurance. 1 Kit 12/11/19 23 Active metFORMIN (GLUCOPHAGE-XR) 500 MG TABLET SR 24 HRIndications:T ype 2 Diabetes Mellitus Take 2 Tablets by mouth daily. 180 Tablet 1 05/25/19 24 Active OneTouch Ultra StripIndication s:Type 2 diabetes mellitus without complication, without long-term current use of insulin USE TO CHECK BLOOD GLUCOSE LEVELS ONCE DAILY 100 Strip 3 07/01/19 25 Active fluticasone (FLONASE) 50 MCG/ACT SuspensionIndic ations:Seasonal allergic rhinitis due to pollen 1 [place] by Nasal route daily. Use in each nostril as directed. 16 g 1 08/02/19 25 Active metoprolol tartrate (LOPRESSOR) 25 MG Tablet Take 1 Tablet by mouth 2 times daily. 180 Tablet 10/28/19 25 Active apixaban (ELIQUIS) 5 MG TabletIndicatio ns:Atrial Fibrillation Take 1 Tablet by mouth 2 times daily. Indications: Atrial Fibrillation 180 Tablet 10/28/19 25 Active insulin glargine (LANTUS) 100 UNIT/ML Solution 40 Units by Subcutaneous route nightly. 15 mL 11/09/19 25 Active ondansetron (ZOFRAN-ODT) 4 MG TABLET DISPERSIBLE Take 1 Tablet by mouth every 6 hours as needed for Nausea - 1st line. 10 Tablet 11/09/19 25 Active polyethylene glycol (GLYCOLAX, MIRALAX) 17 g PackIndications :Constipation Take 1 Packet by mouth 2 times daily as needed for Constipation - 1st line. Dissolve in 4-8 oz of liquid. Indications: Constipation 90 Packet 11/09/19 25 Active sodium chloride (OCEAN) 0.65 % Solution 1 [place] by Nasal route 2 times daily as needed for Congestion. 480 mL 11/09/19 25 Active tamsulosin (FLOMAX) 0.4 MG Capsule TAKE 1 CAPSULE BY MOUTH EVERY NIGHT 90 Capsule 01/05/20 25 Active atorvastatin (LIPITOR) 10 MG Tablet TAKE 1 TABLET BY MOUTH DAILY 90 Tablet 01/05/20 25 Active tamsulosin (FLOMAX) 0.4 MG Capsule TAKE 1 CAPSULE BY MOUTH EVERY NIGHT 90 Capsule 10/05/19 25 2024 Discontinued atorvastatin (LIPITOR) 10 MG Tablet TAKE 1 TABLET BY MOUTH DAILY 90 Tablet 10/05/19 25 2024 Discontinued Active Problems Problem Noted Date Diagnosed Date Pneumonia due to COVID-19 virus 11/03/2024 Acute on chronic respiratory failure with hypoxi a 10/29/2024 Hospital-acquired pneumonia 10/29/2024 Paroxysmal atrial fibrillation 10/29/2024 Chest pain 10/29/2024 Dehydration 10/29/2024 Acute respiratory failure with hypoxia Atrial fibrillation with RVR 10/26/2024 Pneumonia, community acquired 10/19/2024 Seasonal allergic rhinitis due to pollen 024 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 07/30/2023 Chronic midline thoracic back pain 01/28/2023 Pulmonary fibrosis 01/20/2022 Overview (01/20/2022): Radiologic diagnosis via CT scan Sensorineural hearing loss, bilateral 07/19/2021 Pulmonary HTN 12/10/2020 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 07/01/2019 Irritant contact dermatitis due to detergent Type 2 diabetes mellitus wit hout complication, without long-term current use of insulin 05/21/2018 Mixed hyperlipidemia Seasonal allergies BPH (benign prostatic hyperplasia) Resolved Problems Problem Noted Date Diagnosed Date Resolved Date Pleural effusion 12/10/2020 01/20/2022 Loose bowel movement 06/10/2019 020 Overweight 11/19/2018 01/06/2020 Encounters Date Type Department Care Team Description 01/04/2025 Refill [facility] - Primary Care - [place] [address] [place] [address] Manuel Ravi MD Medication Refill 12/21/2024 Telephone [facility] [address] [place] [phone] Kathleen Aviles, HEAD OPERATOR, [employer] Request for Records 10/29/2024 12:08 PM CDT - 11/08/2024 4:56 PM CDT Hospital Encounter [facility] Intensive Care [address] [place] [phone] Jose Salinas MD Krishna, Naveen Kumar, MD Acute on chronic respiratory failure with hypoxia (HCC) Discharge Disposition: [facility] 10/29/2024 Travel 10/24/2024 10:55 AM CDT - 10/24/2024 12:45 PM CDT Surgery [facility] [address] [place] [address] Scarlett Ott MD [place] guided CARDIOVERSION 10/19/2024 11:26 AM CDT - 10/27/2024 1:37 PM CDT Hospital Encounter [facility] Med Surg [address] [place] [phone] Silver Dowell, SUSAN Hall, Noé Reaves, HEAD OPERATOR, [employer] Melanie Olivo MD Krishna, Naveen Kumar, MD Pneumonia, community acquired Discharge Disposition: Discharged to home or Selfcare from Last 3 Months Immunizations Immunization Administration Dates Next Due Covid-19, Mrna, Lnp-s, PF, 1 00 mcg/0.5 mL Dose (Moderna) 09/11/2020,08/14/2020 Influenza Vaccine, Quadrivalent, PF 01/18/2021 Influenza, Quadrivalent, Adjuvanted 01/28/2023 Influenza, Trivalent, Adjuvanted, PF 02/01/2024 Pneumococcal Vaccine - 13 Valent 12/17/2018 Pneumococcal Vaccine Adult - 23 Valent 0 TD VACCINE 05/11/2010 Family History Medical History Relation Name Comments Congestive Heart Failure Father Cancer Mother Alzheimer's Disease Sister Diabetes Sister Relation Name Status Comments Father Mother Sister Social History Tobacco Use Types Packs/Day Years Used Date Smoking Tobacco: Never Smokeless Tobacco: Never Tobacco Cessation:Counseling Given: Not Answered Alcohol Use Standard Drinks/Week Comments Never 0 (1 standard drink = 0.6 oz pur e alcohol) PHQ-2 Answer Date Recorded Total Score - Questions 1-9 0 07/10 Social Connection and Isolation Panel Answer Date Recorded In a typical week, how many times do you talk on the phone with family, friends, or neighbors? Three times a week 10/29/2024 How often do you get togethe r with friends or relatives? More than three times a week 10/29/2024 How often do you attend chur or scientologist services? More than 4 times per year 10/29/2024 Do you belong to any clubs o r organizations such as jainism groups, unions, fraternal or athletic groups, or school groups? Yes 10/29/2024 How often do you attend meet ings of the clubs or organizations you belong to? 1 to 4 times per year 10/29/2024 Are you , , di vorced, , never , or living with a partner? 10/29/2024 AUDIT-C Answer Date Recorded Q1: How often do you have a drink containing alcohol? Never 10/29/2024 Q2: How many drinks containi ng alcohol do you have on a typical day when you are drinking? Patient does not drink Q3: How often do you have si x or more drinks on one occasion? Never 10/29/2024 Overall Financial Resource Strain (CARDIA) Answe r Date Recorded How hard is it for you to pa y for the very basics like food, housing, medical care, and heating? Not very hard 10/29/2024 [facility] Occupat ional Health - Occupational Stress Questionnaire Answer Date Recorded Do you feel stress - tense, restless, nervous, or anxious, or unable to sleep at night because your mind is troubled all the time - these days? Not at all 10/29/2024 Exercise Vital Sign Answer Date Recorde d On average, how many days pe r week do you engage in moderate to strenuous exercise (like a brisk walk)? 0 days 10/29/2024 On average, how many minutes do you engage in exercise at this level? 0 min 10/29/2024 Hunger Vital Sign Answer Date Recorded Within the past 12 months, y ou worried that your food would run out before you got the money to buy more. Never true 10/30/19 25 Within the past 12 months, t he food you bought just didn't last and you didn't have money to get more. Never true 10/29/2024 PRAPARE - Transportation Answer Date Re corded In the past 12 months, has l ack of transportation kept you from medical appointments or from getting medications? No 10/29/2024 Lack of Transportation (Non-Medical) Not on file 10/29/2024 Housing Stability Vital Sign Answer Donny e Recorded In the last 12 months, was t here a time when you were not able to pay the mortgage or rent on time? No 10/29/2024 In the past 12 months, how m any times have you moved where you were living? 0 10/29/2024 At any time in the past 12 m [facility], were you homeless or living in a group home (including now)? No 10/29/2024 [facility] Utilities Answer Date Recorded In the past 12 months has th e electric, gas, oil, or water company threatened to shut off services in your home? No 10/29/2024 Education Answer Date Recorded What is the highest level of school you have completed or the highest degree you have received? 12th grade 01/28/2023 Sexually Active Control Partners Comments Yes Sex and Gender Information Value Date Recorded Sex Assigned at Not on file Legal Sex Male 11:52 PM CDT Gender Identity Not on file Sexual Orientation Not on file Last Filed Vital Signs Vital Sign Reading Time Taken Comments Blood Pressure 120/51 11/08/2024 4:00 PM CDT Pulse 58 11/08/2024 4:00 PM CDT Temperature 36.4 C (97.6 F) 11/08/2024 11:00 AM CDT Respiratory Rate 22 11/08/2024 4:00 PM CDT Oxygen Saturation 90% 11/08/2024 4:00 PM CDT Inhaled Oxygen Concentration - - Weight 95.3 kg (210 lb) 10/29/2024 12:13 PM CDT Height 182.9 cm (6') 10/29/2024 12:13 PM CDT Body Mass Index 28.48 10/29/2024 12:13 PM CDT Plan of Treatment Upcoming Encounters Date Type Department Care Team (Late st Contact Info) Description 02/03/2025 1:00 PM CDT Office Visit [facility] - [place] [address] [place] [phone] Kathleen Aviles, HEAD OPERATOR, [employer] [address] [place] [address] Health Maintenance Due Date Last Done Comments TdaP Immunization 1945 Zoster Immunization (1 of 2) 12/04/1993 Respiratory Syncytial Virus (RSV) Immunization (Adult) (1 - 1-dose 75+ series) 12/04/2018 Influenza Immunization (#1) 01/09/202501/10, 01/28/2023, 01/18/2021 SARS-COV-2 Immunization ( season) 2025 09/11/2020, 08/14/2020 Diabetes: Eye Exam 04/19/2025 04/19/2024, 0 07/23/2022, 05/25/2018 Diabetes: Hemoglobin A1c 04/20/2025 025, 08/01/2024, 05/25/2024, Additional history exists Diabetes: Foot Exam 05/25/2025 05/25/2024 Diabetes: Nephropathy Screening 11/05/2025 11/05/2024, 11/04/2024, 11/03/2024, Additional history exists Pneumococcal Immunization (50+ years) Completed 01/06/2020, 12/17/2018 Pneumococcal Immunization Combined Discontinued 01/06/2020, 12/17/2018 Hepatitis C Virus (HCV) Screening Completed 01/28/2023 Hepatitis B Immunization Aged Out No longer eligible based on patient's age to complete this topic Human Papillomavirus (HPV) Immunization Aged Out No longer eligible based on patient's age to complete this topic Meningococcal Immunization (ACWY) Aged Out No longer eligible based on patient's age to complete this topic Rotavirus Immunization Aged Out No lo nger eligible based on patient's age to complete this topic Procedures Procedure Name Priority Date/Time Associated Diagnosis Comments OCCUPATIONAL THERAPY CONSULT 12/02/2024 12:00 AM CDT PULMONOLOGY CONSULT 12/02/2024 1 2:00 AM CDT PULMONOLOGY CONSULT 12/02/2024 1 2:00 AM CDT NUTRITION CONSULT 12/01/2024 12: 00 AM CDT PHYSICAL THERAPY CONSULT 12/01/2024 12:00 AM CDT INTERNAL MEDICINE CONSULT 12/01/2024 12:00 AM CDT ENDOCRINOLOGY CONSULT 12/01/2024 12:00 AM CDT PULMONOLOGY CONSULT 11/09/2024 1 2:00 AM CDT POCT GLUCOSE Routine 11/08/2024 11:42 AM CDT POCT GLUCOSE Routine 11/08/2024 7:27 AM CDT RENAL FUNCTION PANEL (RFP) Routine 11/08/2024 5:29 AM CDT RHYTHM STRIP 11/08/2024 12:00 AM CDT RHYTHM STRIP 11/08/2024 12:00 AM CDT RHYTHM STRIP 11/08/2024 12:00 AM CDT PULMONOLOGY CONSULT 11/08/2024 1 2:00 AM CDT POCT GLUCOSE Routine 11/07/2024 8:28 PM CDT POCT GLUCOSE Routine 11/07/2024 5:25 PM CDT POCT GLUCOSE Routine 11/07/2024 11:50 AM CDT POCT GLUCOSE Routine 11/07/2024 7:23 AM CDT RENAL FUNCTION PANEL (RFP) Routine 11/07/2024 4:22 AM CDT RHYTHM STRIP 11/07/2024 12:00 AM CDT RHYTHM STRIP 11/07/2024 12:00 AM CDT RHYTHM STRIP 11/07/2024 12:00 AM CDT POCT GLUCOSE Routine 11/06/2024 8:40 PM CDT POCT GLUCOSE Routine 11/06/2024 5:24 PM CDT POCT GLUCOSE Routine 11/06/2024 11:42 AM CDT POCT GLUCOSE Routine 11/06/2024 7:31 AM CDT XR CHEST SINGLE VIEW PORTABLE Routine 11/06/2024 5:58 AM CDT RHYTHM STRIP 11/06/2024 12:00 AM CDT RHYTHM STRIP 11/06/2024 12:00 AM CDT RHYTHM STRIP 11/06/2024 12:00 AM CDT POCT GLUCOSE Routine 11/05/2024 8:19 PM CDT POCT GLUCOSE Routine 11/05/2024 5:37 PM CDT POCT GLUCOSE Routine 11/05/2024 12:04 PM CDT POCT GLUCOSE Routine 11/05/2024 8:42 AM CDT XR CHEST SINGLE VIEW PORTABLE Routine 11/05/2024 5:25 AM CDT CBC WITH AUTO DIFFERENTIAL Routine 11/05/2024 4:13 AM CDT COMPLETE BLOOD COUNT (CBC) WITH DIFF Routine 11/05/2024 4:13 AM CDT CMP (COMPREHENSIVE METABOLIC PANEL) Routine 11/05/2024 4:13 AM CDT RHYTHM STRIP 11/05/2024 12:00 AM CDT RHYTHM STRIP 11/05/2024 12:00 AM CDT RHYTHM STRIP 11/05/2024 12:00 AM CDT POCT GLUCOSE Routine 11/04/2024 9:35 PM CDT POCT GLUCOSE Routine 11/04/2024 4:24 PM CDT POCT GLUCOSE Routine 11/04/2024 12:51 PM CDT POCT GLUCOSE Routine 11/04/2024 7:18 AM CDT CBC WITH AUTO DIFFERENTIAL Routine 11/04/2024 2:45 AM CDT CMP (COMPREHENSIVE METABOLIC PANEL) Routine 11/04/2024 2:45 AM CDT COMPLETE BLOOD COUNT (CBC) WITH DIFF Routine 11/04/2024 2:45 AM CDT POCT GLUCOSE Routine 11/04/2024 2:07 AM CDT POCT GLUCOSE Routine 11/04/2024 1:03 AM CDT POCT GLUCOSE Routine 11/04/2024 12:13 AM CDT RHYTHM STRIP 11/04/2024 12:00 AM CDT RHYTHM STRIP 11/04/2024 12:00 AM CDT POCT GLUCOSE Routine 11/03/2024 11:07 PM CDT POCT GLUCOSE Routine 11/03/2024 9:49 PM CDT POCT GLUCOSE Routine 11/03/2024 5:35 PM CDT POCT GLUCOSE Routine 11/03/2024 1:27 PM CDT CHEST PERCUSSION-INITIAL Routine 11/03/2024 1:23 PM CDT POCT GLUCOSE Routine 11/03/2024 9:59 AM CDT RSV,SARS-COV-2,INFLUENZ A A&B BY PCR STAT 11/03/2024 7:09 AM CDT CBC WITH AUTO DIFFERENTIAL Routine 11/03/2024 3:59 AM CDT CMP (COMPREHENSIVE METABOLIC PANEL) Routine 11/03/2024 3:59 AM CDT COMPLETE BLOOD COUNT (CBC) WITH DIFF Routine 11/03/2024 3:59 AM CDT RHYTHM STRIP 11/03/2024 12:00 AM CDT RHYTHM STRIP 11/03/2024 12:00 AM CDT POCT GLUCOSE Routine 11/02/2024 10:20 PM CDT POCT GLUCOSE Routine 11/02/2024 4:11 PM CDT POCT GLUCOSE Routine 11/02/2024 12:24 PM CDT POCT GLUCOSE Routine 11/02/2024 7:44 AM CDT CBC WITH AUTO DIFFERENTIAL Routine 11/02/2024 3:47 AM CDT D-DIMER Routine 11/02/2024 3:47 AM CDT CMP (COMPREHENSIVE METABOLIC PANEL) Routine 11/02/2024 3:47 AM CDT COMPLETE BLOOD COUNT (CBC) WITH DIFF Routine 11/02/2024 3:47 AM CDT RHYTHM STRIP 11/02/2024 12:00 AM CDT RHYTHM STRIP 11/02/2024 12:00 AM CDT POCT GLUCOSE Routine 11/01/2024 8:27 PM CDT N-TERMINAL- PRO B TYPE NATRIURETIC PEPTIDE Routine 11/01/2024 5:47 PM CDT POCT GLUCOSE Routine 11/01/2024 4:13 PM CDT QUANTIFERON-TB GOLD PLUS Routine 11/01/2024 2:46 PM CDT CRYPTOCOCCAL AG QLT,SER,SCR *[facility] Routine 11/01/2024 2:46 PM CDT FUNGAL ANTIBODY (ASPER, HISTO, BLASTO) Routine 11/01/2024 2:46 PM CDT POCT GLUCOSE Routine 11/01/2024 11:13 AM CDT POCT GLUCOSE Routine 11/01/2024 7:35 AM CDT CBC WITH AUTO DIFFERENTIAL Routine 11/01/2024 7:18 AM CDT CMP (COMPREHENSIVE METABOLIC PANEL) Routine 11/01/2024 7:18 AM CDT COMPLETE BLOOD COUNT (CBC) WITH DIFF Routine 11/01/2024 7:18 AM CDT MAGNESIUM (MG) Routine 11/01/2024 7:18 AM CDT RHYTHM STRIP 11/01/2024 12:00 AM CDT RHYTHM STRIP 11/01/2024 12:00 AM CDT RHYTHM STRIP 11/01/2024 12:00 AM CDT POCT GLUCOSE Routine 10/31/2024 7:48 PM CDT POCT GLUCOSE Routine 10/31/2024 4:08 PM CDT POCT GLUCOSE Routine 10/31/2024 11:26 AM CDT POCT GLUCOSE Routine 10/31/2024 7:05 AM CDT CBC WITH AUTO DIFFERENTIAL Routine 10/31/2024 4:13 AM CDT COMPLETE BLOOD COUNT (CBC) WITH DIFF Routine 10/31/2024 4:13 AM CDT MAGNESIUM (MG) Routine 10/31/2024 4:13 AM CDT CMP (COMPREHENSIVE METABOLIC PANEL) Routine 10/31/2024 4:13 AM CDT RHYTHM STRIP 10/31/2024 12:00 AM CDT RHYTHM STRIP 10/31/2024 12:00 AM CDT POCT GLUCOSE Routine 10/30/2024 7:47 PM CDT POCT GLUCOSE Routine 10/30/2024 4:19 PM CDT POCT GLUCOSE Routine 10/30/2024 11:13 AM CDT POCT GLUCOSE Routine 10/30/2024 7:10 AM CDT CBC WITH AUTO DIFFERENTIAL Routine 10/30/2024 4:35 AM CDT COMPLETE BLOOD COUNT (CBC) WITH DIFF Routine 10/30/2024 4:35 AM CDT MAGNESIUM (MG) Routine 10/30/2024 4:35 AM CDT CMP (COMPREHENSIVE METABOLIC PANEL) Routine 10/30/2024 4:35 AM CDT RHYTHM STRIP 10/30/2024 12:00 AM CDT RHYTHM STRIP 10/30/2024 12:00 AM CDT RHYTHM STRIP 10/30/2024 12:00 AM CDT POCT GLUCOSE Routine 10/29/2024 9:17 PM CDT AEROSOL NEBULIZER-INITIAL Routine 10/29/2024 9:14 PM CDT TROPONIN I, HIGH SENSITIVITY (HSTRP) Routine 10/29/2024 8:18 PM CDT MRSA NASAL PCR Routine 10/29/2024 8:07 PM CDT MRSA NASAL BY PCR Routine 10/29/2024 8:0 7 PM CDT URINALYSIS REFLEX IF INDICATED BY ABNORMAL RESULTS STAT 10/29/2024 2:58 PM CDT XR CHEST SINGLE VIEW PORTABLE STAT 10/29/2024 2:11 PM CDT CULTURE, BLOOD STAT 10/29/2024 12:44 PM CDT CBC WITH AUTO DIFFERENTIAL STAT 10/29/2024 12:20 PM CDT B-TYPE NATRIURETIC PEPTIDE (BNP) STAT 10/29/2024 12:20 PM CDT TROPONIN I, HIGH SENSITIVITY (HSTRP) STAT 10/29/2024 12:20 PM CDT LACTIC ACID (LACTATE) STAT 10/29/2024 12:20 PM CDT CMP (COMPREHENSIVE METABOLIC PANEL) STAT 10/29/2024 12:20 PM CDT COMPLETE BLOOD COUNT (CBC) WITH DIFF STAT 10/29/2024 12:20 PM CDT CULTURE, BLOOD STAT 10/29/2024 12:20 PM CDT EKG 12 LEAD STAT 10/29/2024 12:11 PM CDT RHYTHM STRIP 10/29/2024 12:00 AM CDT EKG SCAN 10/29/2024 12:00 AM CDT POCT GLUCOSE Routine 10/27/2024 11:06 AM CDT POCT GLUCOSE Routine 10/27/2024 7:30 AM CDT BASIC METABOLIC PANEL W/ CALCIUM TOTAL Routine 10/27/2024 6:56 AM CDT CBC WITH AUTO DIFFERENTIAL Routine 10/27/2024 6:38 AM CDT COMPLETE BLOOD COUNT (CBC) WITH DIFF Routine 10/27/2024 6:38 AM CDT RHYTHM STRIP 10/27/2024 12:00 AM CDT RHYTHM STRIP 10/27/2024 12:00 AM CDT POCT GLUCOSE Routine 10/26/2024 8:08 PM CDT POCT GLUCOSE Routine 10/26/2024 4:34 PM CDT POCT GLUCOSE Routine 10/26/2024 10:58 AM CDT POCT GLUCOSE Routine 10/26/2024 7:09 AM CDT MANUAL DIFFERENTIAL Routine 10/26/2024 3 :32 AM CDT CBC WITH AUTO DIFFERENTIAL Routine 10/26/2024 3:32 AM CDT COMPLETE BLOOD COUNT (CBC) WITH DIFF Routine 10/26/2024 3:32 AM CDT BASIC METABOLIC PANEL W/ CALCIUM TOTAL Routine 10/26/2024 3:32 AM CDT EKG 12 LEAD Routine 10/26/2024 3:24 AM CDT RHYTHM STRIP 10/26/2024 12:00 AM CDT RHYTHM STRIP 10/26/2024 12:00 AM CDT RHYTHM STRIP 10/26/2024 12:00 AM CDT EKG SCAN 10/26/2024 12:00 AM CDT POCT GLUCOSE Routine 10/25/2024 7:48 PM CDT POCT GLUCOSE Routine 10/25/2024 4:39 PM CDT POCT GLUCOSE Routine 10/25/2024 10:58 AM CDT POCT GLUCOSE Routine 10/25/2024 7:24 AM CDT EKG 12 LEAD Routine 10/25/2024 4:26 AM CDT CBC WITH AUTO DIFFERENTIAL Routine 10/25/2024 3:18 AM CDT COMPLETE BLOOD COUNT (CBC) WITH DIFF Routine 10/25/2024 3:18 AM CDT BASIC METABOLIC PANEL W/ CALCIUM TOTAL Routine 10/25/2024 3:18 AM CDT RHYTHM STRIP 10/25/2024 12:00 AM CDT RHYTHM STRIP 10/25/2024 12:00 AM CDT RHYTHM STRIP 10/25/2024 12:00 AM CDT RHYTHM STRIP 10/25/2024 12:00 AM CDT EKG SCAN 10/25/2024 12:00 AM CDT POCT GLUCOSE Routine 10/24/2024 8:22 PM CDT POCT GLUCOSE Routine 10/24/2024 4:06 PM CDT POCT GLUCOSE Routine 10/24/2024 1:11 PM CDT EKG 12 LEAD STAT 10/24/2024 11:50 AM CDT EKG 12 LEAD Routine 10/24/2024 11:50 AM CDT ADULT TRANS ESOPHAGEAL ECHO COMPLETE Routine 10/24/2024 11:47 AM CDT CARDIOVERSION TOP AND SEAT COVER FITTER Routine 11:43 AM CDT ND [place] W OR W/O FOL W/CONT, 10/24/2024 10:55 AM CDT AFIB, Aflutter ECHO TRANSESOPHAGEAL ([place]) 10/24/2024 10:55 AM CDT AFIB, Aflutter ND ECHO TRANSESOPHAG MONTR CARDIAC PUMP FUNCTJ 10/24/2024 10:55 AM CDT AFIB, Aflutter ND ECHO TRANSESOPHAG IMAGE ACQUISJ INTERP&REPORT 10/24/2024 10:55 AM CDT AFIB, Aflutter ND ECHO TRANSESOPHAG CONGEN PROBE PLCMT ONLY 10/24/2024 10:55 AM CDT AFIB, Aflutter ND ECHO TRANSESOPHAG CONGEN PROBE PLCMT IMGNG I&R 10/24/2024 10:55 AM CDT AFIB, Aflutter ND ECHO TRANSESOPHAG R-T 2D IMG ACQUISJ I&R ONLY 10/24/2024 10:55 AM CDT AFIB, Aflutter ND ECHO R-T 2D W/PROBE PLACEMENT ONLY 10/24/2024 10:55 AM CDT AFIB, Aflutter ND ECHO TRANSESOPHAG R-T 2D W/PRB IMG ACQUISJ I&R 10/24/2024 10:55 AM CDT AFIB, Aflutter B-TYPE NATRIURETIC PEPTIDE (BNP) Routine 10/24/2024 10:27 AM CDT ADULT TRANS THORACIC ECHO 2D COMPLT W CONT Routine 10/24/2024 10:11 AM CDT POCT GLUCOSE Routine 10/24/2024 7:49 AM CDT CBC WITH AUTO DIFFERENTIAL Routine 10/24/2024 4:02 AM CDT PHOSPHORUS (PO4) Routine 10/24/2024 4:02 AM CDT MAGNESIUM (MG) Routine 10/24/2024 4:02 AM CDT COMPLETE BLOOD COUNT (CBC) WITH DIFF Routine 10/24/2024 4:02 AM CDT BASIC METABOLIC PANEL W/ CALCIUM TOTAL Routine 10/24/2024 4:02 AM CDT EKG 12 LEAD Routine 10/24/2024 3:08 AM CDT RHYTHM STRIP 10/24/2024 12:00 AM CDT RHYTHM STRIP 10/24/2024 12:00 AM CDT EKG SCAN 10/24/2024 12:00 AM CDT RHYTHM STRIP 10/24/2024 12:00 AM CDT RHYTHM STRIP 10/24/2024 12:00 AM CDT EKG SCAN 10/24/2024 12:00 AM CDT HEMOGLOBIN A1C W/ ESTIMATED GLUCOSE Routine 10/19/2024 11:45 AM CDT HM DILATED EYE EXAM 04/19/2024 1 2:00 AM 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 12/02/2024 us Provider Scan GENERIC SCAN ORDERS CONSULT Sophie l Result SCAN * OCCUPATIONAL THERAPY CONSULT (12/02/2024 12:00 AM CDT) 12/02/2024 us Provider Scan GENERIC SCAN ORDERS CONSULT Sophie l Result SCAN * PHYSICAL THERAPY CONSULT (12/01/2024 12:00 AM CDT) 12/01/2024 us Provider Scan GENERIC SCAN ORDERS CONSULT Sophie l Result SCAN * NUTRITION CONSULT (12/01/2024 12:00 AM CDT) 12/01/2024 us Provider Scan GENERIC SCAN ORDERS CONSULT Sophie l Result SCAN * INTERNAL MEDICINE CONSULT (12/01/2024 12:00 AM CDT) 12/01/2024 us Provider Scan GENERIC SCAN ORDERS CONSULT Sophie l Result Performing Organization Address City/[facility]/ZIP Co de Phone Number SCAN * ENDOCRINOLOGY CONSULT (12/01/2024 12:00 AM CDT) 12/01/2024 us Provider Scan GENERIC SCAN ORDERS CONSULT Sophie l Result Performing Organization Address City/[facility] Co de Phone Number SCAN * (ABNORMAL) POCT Glucose (11/08/2024 11:42 AM CDT) Only the most recent of57 resultswithin the time period is included. GLUCOSE,BEDSID E POCT 351(H) 70 - 99 mg/dL 11/08/2024 11:47 AM CDT [facility] Comment:RN Notified Blood 11/08/2024 11:4 2 AM CDT 11/08/2024 11:47 AM CDT us None Provider POINT OF CARE TESTING Final Resu lt Performing Organization Address City/[facility] Co de Phone Number [facility] [address] [place] [address] * (ABNORMAL) Renal Function Panel (RFP) (11/08/2024 5:29 AM CDT) Only the most recent of2 resultswithin the time period is included. SODIUM 137 136 - 145 mmol/L 11/08/2024 6:07 AM CDT [facility] POTASSIUM 5.1 3.5 - 5.1 mmol/L 11/08/2024 6:07 AM CDT [facility] CHLORIDE 105 98 - 107 mmol/L 11/08/2024 6:07 AM T [facility] CO2, VENOUS 25 22 - 30 mmol/L 11/08/2024 6:07 AM T [facility] ANION GAP 12.1 <18.0 mmol/L 11/08/2024 6:07 AM T [facility] GLUCOSE 192(H) 70 - 99 mg/dL 11/08/2024 6:07 AM CDT [facility] BUN 43(H) 8 - 26 mg/dL 11/08/2024 6:07 AM T [facility] CREATININE, BLOOD 1.22 0.70 - 1.30 mg/dL 11/08/2024 6:07 AM T [facility] BUN/CREATININE RATIO 35(H) 12 - 20 ratio 11/08/2024 6:07 AM T [facility] ALBUMIN 2.7(L) 3.5 - 5.0 g/dL 11/08/2024 6:07 AM T [facility] CALCIUM 7.6(L) 8.7 - 10.5 mg/dL 11/08/2024 6:[address] [facility] PHOSPHORUS 3.4 2.5 - 4.5 mg/dL 11/08/2024 6:[address] [facility] GFR, ESTIMATED 60 >=60 11/08/2024 6:[address] [facility] Comment: Creatinine Clearance is the preferred criteria for selecting drug dose adjustments in renally impaired patients. The GFR is provided as additional pertinent clinical information. GFR is reported in mL/min/1.73 sq m. Calculation based on the Chronic Kidney Disease Epidemiology Collaboration (CKD- EPI) equation refit without adjustment for race. GFR, EST. >60 >=60 025 6:07 AM CDT [facility] GFR, EST. NONAFRICAN 57(L) >=60 11/08/2024 6:07 AM CDT [facility] Blood Venipuncture / Unknown 11/08/2024 5:29 AM CDT 11/08/2024 5:41 AM CDT David Zimmerman MD CHEMISTRY ORDERABLES Final Result Performing Organization Address City/[facility] Co de Phone Number [facility] [place] [address] * RHYTHM STRIP (11/08/2024 12:00 AM CDT) Only the most recent of40 resultswithin the time period is included. 11/08/2024 Provider Scan IMG ECG ORDERABLES Final Result Performing Organization Address City/[facility] Co de Phone Number RESULTING AGENCY * XR CHEST SINGLE VIEW PORTABLE (11/06/2024 5:58 AM CDT) Only the most recent of3 resultswithin the time period is included. Anatomical Region Laterality Modality Chest N/A Digital Radiogra phy 11/06/2024 6:13 AM CDT Impressions 11/06/2024 6:15 AM CDT IMPRESSION: Stable multifocal pneumonia. Narrative 11/06/2024 6:15 AM CDT EXAM DESCRIPTION: XR CHEST SINGLE VIEW PORTABLE REASON FOR STUDY: Follow-up, Pneumonia due to COVID-19 virus x 2 days. Admitted 10/29 for acute on chronic resp failure with hypoxia. HX: A-fib. Pleural effusion, Pulmonary fibrosis TECHNIQUE: Single radiographic view of the chest. COMPARISON: Chest x-ray of November 05, 2024. FINDINGS: LUNGS/PLEURA: Lungs are mildly hypoventilatory, unchanged. There is bilateral airspace disease, greater on the right than the left, not significantly changed from previous HEART/MEDIASTINUM: Cardiac silhouette is normal. Remaining mediastinal silhouettes are unremarkable. HARDWARE/LINES/TUBES: EKG leads overlie the film. BONES: No acute findings. THIS IS AN ELECTRONICALLY VERIFIED FINAL REPORT 11/06/2024 6:13 AM - Electronically signed by Alexandra Cordon M.D. SN: SN Report ID: [id number] Reading Location: [id number] Procedure Note Alexandra Cordon MD - 11/06/2024 EXAM DESCRIPTION: XR CHEST SINGLE VIEW PORTABLE REASON FOR STUDY: Follow-up, Pneumonia due to COVID-19 virus x 2 days. Admitted 10/29 for acute on chronic resp failure with hypoxia. HX: A-fib. Pleural effusion, Pulmonary fibrosis TECHNIQUE: Single radiographic view of the chest. COMPARISON: Chest x-ray of November 05, 2024. FINDINGS: LUNGS/PLEURA: Lungs are mildly hypoventilatory, unchanged. There is bilateral airspace disease, greater on the right than the left, not significantly changed from previous HEART/MEDIASTINUM: Cardiac silhouette is normal. Remaining mediastinal silhouettes are unremarkable. HARDWARE/LINES/TUBES: EKG leads overlie the film. BONES: No acute findings. THIS IS AN ELECTRONICALLY VERIFIED FINAL REPORT 11/06/2024 6:13 AM - Electronically signed by Alexandra Cordon M.D. SN: Report ID: [id number] Reading Location: [id number] IMPRESSION: Stable multifocal pneumonia. Elio Porter MD IMG DIAGNOSTIC ORDERABLES Final Result * (ABNORMAL) CBC with Auto Differential (11/05/2024 4:13 AM CDT) Only the most recent of12 resultswithin the time period is included. WBC 8.11 4.00 - 12.00 10(3)/mcL 11/05/2024 5:14 AM CDT [facility] RBC 3.71(L) 4.40 - 5.80 10(6)/mcL 11/05/2024 5:14 AM CDT [facility] HEMOGLOBIN (HGB) 10.5(L) 13.0 - 16.5 g/dL 11/05/2024 5:14 AM CDT [facility] HEMATOCRIT (HCT) 31.6(L) 38.0 - 50.0 % 11/05/2024 5:14 AM CDT [facility] MCV 85.2 82.0 - 96.0 fL 11/05/2024 5:14 AM CDT [facility] MCH 28.3 26.0 - 32.0 pg 11/05/2024 5:14 AM CDT [facility] MCHC 33.2 31.0 - 36.0 g/dL 11/05/2024 5:14 AM CDT [facility] PLATELET COUNT 319 140 - 440 10(3)/[facility] 11/05/2024 5:14 AM CDT [facility] RDW 13.4 11.8 - 15.5 % 11/05/2024 5:14 AM CDT [facility] MPV 9.5 8.0 - 12.6 fL 11/05/2024 5:14 AM CDT [facility] NEUTROPHILS 85.9(H) 40.0 - 68.0 % 11/05/2024 5:14 AM CDT [facility] LYMPHOCYTES 8.0(L) 19.0 - 49.0 % 11/05/2024 5:14 AM CDT [facility] MONOCYTES 4.6 3.0 - 13.0 % 11/05/2024 5:14 AM CDT [facility] EOSINOPHILS 0.0 0.0 - 8.0 % 11/05/2024 5:14 AM CDT [facility] BASOPHILS 0.1 0.0 - 1.0 % 11/05/2024 5:14 AM CDT [facility] IMMATURE GRANULOCYTE 1.4(H) 0.0 - 0.4 % 11/05/2024 5:14 AM CDT [facility] Comment:Immature Granulocyte s includes Metamyelocytes, Myelocytes, and Promyelocytes. ABSOLUTE NEUTROPHILS 6.97(H) 1.40 - 5.30 10(3)/mcL 11/05/2024 5:14 AM CDT [facility] ABSOLUTE LYMPHOCYTES 0.65(L) 0.90 - 3.30 10(3)/mcL 11/05/2024 5:14 AM CDT [facility] ABSOLUTE MONOCYTES 0.37 0.10 - 0.90 10(3)/[facility] 11/05/2024 5:14 AM CDT [facility] ABSOLUTE EOSINOPHIL 0.00 0.00 - 0.50 10(3)/[facility] 11/05/2024 5:14 AM CDT [facility] ABSOLUTE BASOPHILS 0.01 0.00 - 0.10 10(3)/[facility] 11/05/2024 5:14 AM CDT [facility] ABSOLUTE IMMATURE GRANULOCYTE 0.11(H) 0.00 - 0.03 10 (3) mcL. 11/05/2024 5:14 AM CDT [facility] NRBC PER 100 WBC 0 11/06/19 25 5:14 AM CDT [facility] Blood Venipuncture / Unknown 11/05/2024 4:13 AM CDT 11/05/2024 5:09 AM CDT us Aquiles Medina MD HEMATOLOGY ORDERABLES Fi nal Result [facility] [address] [place] [address] * (ABNORMAL) CMP (Comprehensive Metabolic Panel) (11/05/2024 4:13 AM CDT) Only the most recent of8 resultswithin the time period is included. [facility] SODIUM 137 136 - 145 mmol/L 11/05/2024 5:28 AM CDT [facility] POTASSIUM 3.8 3.5 - 5.1 mmol/L 11/05/2024 5:28 AM CDT [facility] CHLORIDE 103 98 - 107 mmol/L 11/05/2024 5:28 AM CDT [facility] CO2, VENOUS 26 22 - 30 mmol/L 11/05/2024 5:28 AM CDT [facility] ANION GAP 11.8 <18.0 mmol/L 11/05/2024 5:28 AM CDT [facility] GLUCOSE 290(H) 70 - 99 mg/dL 11/05/2024 5:28 AM CDT [facility] BUN 49(H) 8 - 26 mg/dL 11/05/2024 5:28 AM T [facility] CREATININE, BLOOD 1.62(H) 0.70 - 1.30 mg/dL 11/05/2024 5:28 AM CDT [facility] BUN/CREATININE RATIO 30(H) 12 - 20 ratio 11/05/2024 5:28 AM T [facility] TOTAL PROTEIN 5.6(L) 6.0 - 8.0 g/dL 11/05/2024 5:28 AM T [facility] ALBUMIN 2.7(L) 3.5 - 5.0 g/dL 11/05/2024 5:28 AM CDT [facility] A/G RATIO 0.9(L) 1.0 - 2.2 11/05/2024 5:28 AM CDT [facility] CALCIUM 7.2(L) 8.7 - 10.5 mg/dL 11/05/2024 5:28 AM T [facility] T BILI 0.6 0.2 - 1.2 mg/dL 11/05/2024 5:28 AM T [facility] SGOT (AST) 25 <43 U/L 11/05/2024 5:28 AM CDT [facility] SGPT (ALT) 85(H) <56 U/L 11/05/2024 5:28 AM CDT [facility] ALKALINE PHOSPHATASE 97 40 - 150 U/L 11/05/2024 5:28 AM CDT [facility] GFR, ESTIMATED 43(L) >=60 11/05/2024 5:28 AM CDT [facility] Comment: Creatinine Clearance is the preferred criteria for selecting drug dose adjustments in renally impaired patients. The GFR is provided as additional pertinent clinical information. GFR is reported in mL/min/1.73 sq m. Calculation based on the Chronic Kidney Disease Epidemiology Collaboration (CKD- EPI) equation refit without adjustment for race. GFR, EST. 50(L) >=60 025 5:28 AM CDT [facility] GFR, EST. NONAFRICAN 41(L) >=60 11/05/2024 5:28 AM CDT [facility] Blood Venipuncture / Unknown 11/05/2024 4:13 AM CDT 11/05/2024 5:09 AM CDT Aquiles Medina MD CHEMISTRY ORDERABLES Fin al Result [facility] [address] [place] [address] * (ABNORMAL) RSV,SARS-COV-2,INFLUENZA A&B BY PCR (11/03/2024 7:09 AM CDT) FLU A Negative Negative, Error 11/03/2024 7:57 AM CDT [facility] FLU B Negative Negative 11/03/2024 7:57 AM CDT [facility] RESP SYNC VIRUS Negative Negative 11/03/2024 7:57 AM CDT [facility] SARSCOV2 DETECTED(A) (Reference Range for this test is Not Detected) 11/03/2024 7:57 AM CDT [facility] Nasopharyngeal NASOPHARYNGEAL STRUCTURE / Unknown Non-Phlebotomy Collection / Unknown 11/03/2024 7:09 AM CDT 11/03/2024 7:16 AM CDT us Mathew Pappas MD MICROBIOLOGY - GENERAL ORDERABL ES Final Result Performing Organization Address City/[facility] Co de Phone Number [facility] [address] [place] [address] * (ABNORMAL) D-Dimer (11/02/2024 3:47 AM CDT) D DIMER 1.11(H) <0.50 mcg/mL FEU 11/02/2024 4:46 AM CDT [facility] Blood Venipuncture / Unknown 11/02/2024 3:47 AM CDT 11/02/2024 4:21 AM CDT Narrative [facility] - 11/02/2024 4:46 AM CDT The FDA has approved this method to exclude the diagnosis of DVT and/or PE at the cutoff value of <0.50 mcg/mL FEU. Aquiles Medina MD HEMATOLOGY ORDERABLES Fi nal Result Performing Organization Address City/[facility]/ZIP Co de Phone Number [facility] [address] [place] [address] * (ABNORMAL) NT-proBNP (11/01/2024 5:47 PM CDT) NT PROBNP 1,922.5(H) <450.0 pg/mL 11/01/2024 6:21 PM CDT [facility] Comment: AGE pg/mL INTERPRETATION All <300 Negative: HF (Heart Failure) unlikely 18 to <50 >=300.0 to <450.0 Indeterminate. Consider other causes of NT-proBNP elevation 50 to 75 >=300.0 to <900.0 Indeterminate. Consider other causes of NT-proBNP elevation >75 >=300.0 to <1800.0 Indeterminate. Consider other causes of NT-proBNP elevation 18 to <50 >=450.0 Positive: HF likely 50 to 75 >=900.0 Positive: HF likely >75 >=1800.0 Positive: HF likely Total protein levels at or above 12.6 mg/dl may falsely decrease NT-proBNP values. Blood Venipuncture / Unknown 11/01/2024 5:47 PM CDT 11/01/2024 5:55 PM CDT Aquiles Medina MD CHEMISTRY ORDERABLES Fin al Result [facility] [address] [place] [address] * QUANTIFERON-TB GOLD PLUS (11/01/2024 2:46 PM CDT) NIL CONTROL 0.02 <8.01 IU/mL 11/03/2024 10:03 AM CDT [facility] TB ANTIGEN 1 0.00 <0.35 IU/mL 11/03/2024 10:03 AM CDT [facility] TB ANTIGEN 2 0.00 <0.35 IU/mL 11/03/2024 10:03 AM CDT [facility] MITOGEN CONTROL 9.55 >0.49 IU/mL 11/04/19 10:03 AM CDT [facility] INTEPRETATION TB NEGATIVE NEGATIVE, NEGATIVE (TB antigen response less than 25% of internal negative control value) 11/03/2024 10:03 AM CDT [facility] Comment:No immune response t o Mycobacterium tuberculosis antigens was noted. M. tuberculosis infection unlikely. Blood Venipuncture / Unknown 11/01/2024 2:46 PM CDT 11/01/2024 3:26 PM CDT Narrative [facility] - 11/03/2024 10:03 AM CDT A POSITIVE QUANTIFERON-TB GOLD PLUS RESULT SHOULD NOT BE THE SOLE OR DEFINITIVE BASIS FOR DETERMINING INFECTION WITH M.TUBERCULOSIS. Diagnosing or excluding tuberculosis disease, and assessing the probability of LTBI, requires a combination of epidemiological, historical, medical and diagnostic findings (e.g., acid fast bacilli (AFB) smear and culture, chest xray) that should be taken into account when interpreting QFT-Plus results. Furthermore, the magnitude of the measured gamma interferon level cannot be correlated to stage or degree of infection, level of immune responsiveness, or likelihood for progression to active disease. The Nil control adjusts for background (e.g., elevated levels of circulating gamma interferon or presence of heterophile antibodies). The Mitogen control serves as an internal positive control and verifies each specimen tested can produce a gamma interferon response. Low mitogen may occur with insufficient lymphocytes, reduced lymphocyte activity due to improper specimen handling, filling/mixing of the mitogen tube, or inability of the patient's lymphocytes to generate gamma interferon. Infection with other Mycobacteria, including M. kansasii, M. szulgai, and M. marinum, may cause false positive results. A negative QuantiFERON-TB Gold Plus result does not preclude the possibility of M. tuberculosis infection or tuberculosis disease: false negative results can be due to incorrect blood sample collection/ improper handling of the specimen, stage of infection (e.g., specimen obtained prior to the development of cellular immune response), co-morbid conditions which affect immune function, or other individual immunological factors. The minimum number of lymphocytes required for a reliable test has not been established and may also be variable. Diagnostic testing for Mycobacterium tuberculosis using Interferon Gamma Release Assays should follow applicable published guidelines, including when testing in populations such as children, women, and HIV-infected or otherwise immunocompromised individuals. https://www.cdc.gov/tb/publications/guidelines/testing.htm Eva Malik MD IMMUNOLOGY ORDERABLES nal Result [facility] [address] [place] [address], * Fungal Antibody (Asper, Histo, Blasto) (11/01/2024 2:46 PM CDT) HISTO CAPSUL H BAND Negative Negative 11/04/2024 9:00 AM CDT [facility] HISTO CAPSUL M BAND Negative Negative 11/04/2024 9:00 AM CDT [facility] COCCIDIOIDES IMMITIS Negative Negative 11/04/2024 9:00 AM CDT [facility] BLASTOMYCES DERMAT Negative Negative 11/04/2024 9:00 AM CDT [facility] ASPERGILLUS FUMIGATS Negative Negative 11/04/2024 9:00 AM CDT [facility] 48 HOUR REPORT Negative Negative 11/04/2024 9:00 AM CDT [facility] Blood Venipuncture / Unknown 11/01/2024 2:46 PM CDT 11/01/2024 3:25 PM CDT Eva Malik MD IMMUNOLOGY ORDERABLES Fi nal Result Performing Organization Address City/[facility]/ZIP Co de Phone Number [facility] [address] [place] [address], [place] * Cryptococcal Ag Qlt,Ser,Scr *Notmc (11/01/2024 2:46 PM CDT) CRYPTOCOCL AG QL SER SCREEN ONLY Negative Negative 11/02/2024 8:27 AM CDT [facility] Blood Venipuncture / Unknown 11/01/2024 2:46 PM CDT 11/01/2024 3:26 PM CDT Eva Malik MD IMMUNOLOGY ORDERABLES Fi nal Result Performing Organization Address City/[facility]/ZIP Co de Phone Number [facility] [address] [place] [address], [place] * Magnesium (Mg) (11/01/2024 7:18 AM CDT) Only the most recent of4 resultswithin the time period is included. MAGNESIUM 2.4 1.6 - 2.6 mg/dL 11/01/2024 7:47 AM CDT [facility] Blood Venipuncture / Unknown 11/01/2024 7:18 AM CDT 11/01/2024 7:24 AM CDT Shobha M Tavares HEAD OPERATOR, RIVETER PNEUMATIC CHEMISTRY ORDERABLES Final Result Performing Organization Address City/[facility]/ZIP Co de Phone Number [facility] [address] [place] [address] * TROPONIN I, HIGH SENSITIVITY (HSTRP) (10/29/2024 8:18 PM CDT) Only the most recent of2 resultswithin the time period is included. [facility] TROPONIN I, HIGH SENSITIVITY- [place] 17 <=35 ng/L 10/29/2024 8:43 PM CDT [facility] Comment: High-sensitivity troponin I results are reported in ng/L making the result appear to be 1,000 times higher than the contemporary troponin I value which is reported in ng/ml. Results from [facility]. Blood Venipuncture / Unknown 10/29/2024 8:18 PM CDT 10/29/2024 8:18 PM CDT us Shobha Vazquez APRN, CNP CHEMISTRY ORDERABLES Final Result Performing Organization Address [facility] Co de Phone Number [facility] [address] [place] [address] * MRSA NASAL PCR (10/29/2024 8:07 PM CDT) [facility] MRSA PCR RESULT Negative Negative, Invalid 10/29/2024 9:31 PM CDT [facility] Other NASOPHARYNGEAL SWAB / Unknown Non-Phlebotomy Collection / Unknown 10/29/2024 8:07 PM CDT 10/29/2024 8:18 PM CDT Shobha Vazquez APRN, CNP MICROBIOLOGY - GENERA L ORDERABLES Final Result Performing Organization Address City/[facility]/ZIP Co de Phone Number [facility] [address] [place] [address] * (ABNORMAL) Urinalysis with Reflex (10/29/2024 2:58 PM CDT) [facility] SPECIFIC GRAVITY 1.015 1.003 - 1.030 10/29/2024 4:01 PM CDT [facility] URINE PH 6.0 5.0 - 9.0 10/29/2024 4:01 PM CDT [facility] WBC ESTERASE Negative Negative 10/29/2024 4:01 PM CDT [facility] NITRITE Negative Negative 10/29/2024 4:01 PM CDT [facility] PROTEIN, RANDOM URINE 30 mg/dL(A) Negative 10/29/2024 4:01 PM CDT [facility] URINE GLUCOSE, QUAL Negative Negative 10/29/2024 4:01 PM CDT [facility] URINE KETONES 5 mg/dL(A) Negative 10/29/2024 4:01 PM CDT [facility] UROBILINOGEN 1 mg/dL(A) Normal mg/dL 10/29/2024 4:01 PM CDT [facility] URINE BLOOD Negative Negative erika/ul 10/29/2024 4:01 PM CDT [facility] URINALYSIS COLOR Yellow 10/30/19 4:01 PM CDT [facility] URINALYSIS CLARITY Clear 10/29/2024 4:01 PM CDT [facility] WBC (Urine) 0-5 Negative, 0-5 /hpf 10/29/2024 4:01 PM CDT [facility] URINE RBC'S Negative Negative, 0-2 /hpf 10/29/2024 4:01 PM CDT [facility] EPITHELIAL CELLS Negative /lpf 10/30/19 4:01 PM CDT [facility] BACTERIA, URINE Negative Negative /hpf 10/29/2024 4:01 PM [facility] UR[facility] MUCOUS Few 10/29/2024 4:01 PM [facility] Urine URINE SPECIMEN / Unknown Non-Phlebotomy Collection / Unknown 10/29/2024 2:58 PM CDT 10/29/2024 3:03 PM CDT Jose Salinas MD URINE ORDERABLES Final Res ult Performing Organization Address City/[facility]/ZIP Co de Phone Number [facility] [address] [place] [address] * Blood Culture #1 (10/29/2024 12:44 PM CDT) Only the most recent of2 resultswithin the time period is included. CULTURE RESULTS NO GROWTH WITHIN 5 DAYS, FINAL RESULT 11/03/2024 2:00 PM CDT [facility] Culture BLOOD SPECIMEN / Unknown Venipuncture / Unknown 10/29/2024 12:44 PM CDT 10/29/2024 1:06 PM CDT Jose Salinas MD MICROBIOLOGY - GENERAL ORD ERABLES Final Result Performing Organization Address [facility]/ZIP Co de Phone Number [facility] [address] [place] [address], * Lactic Acid (Lactate) (10/29/2024 12:20 PM CDT) LACTIC ACID 1.4 0.7 - 2.0 mmol/L 10/29/2024 12:56 PM CDT [facility] Blood Venipuncture / Unknown 10/29/2024 12:20 PM CDT 10/29/2024 12:33 PM CDT Jose Salinas MD CHEMISTRY ORDERABLES Final Result Performing Organization Address City/[facility]/ZIP Co de Phone Number [facility] [address] [place] [address] * (ABNORMAL) B-Type Natriuretic Peptide (BNP) (10/29/2024 12:20 PM CDT) Only the most recent of2 resultswithin the time period is included. B TYPE NATRIURETIC PEPTIDE 407(H) <100 pg/mL 10/29/2024 2:40 PM CDT [facility] Blood Venipuncture / Unknown 10/29/2024 12:20 PM CDT 10/29/2024 12:33 PM CDT Jose Salinas MD CHEMISTRY ORDERABLES Final Result Performing Organization Address [facility] Co de Phone Number [facility] [address] [place] [address] * EKG 12 LEAD (10/29/2024 12:11 PM CDT) Only the most recent of6 resultswithin the time period is included. Ventricular Rate 70 BPM EXTERNAL EKG Atrial Rate 70 BPM EXTERNAL EKG P-R Interval 198 ms EXTERNAL EKG QRS Duration 108 ms EXTERNAL EKG Q-T Duration 404 ms EXTERNAL EKG QTC CALCULATION 436 ms EXTERNAL EKG P [place] 56 degrees EXTERNAL EKG R [place] 36 degrees EXTERNAL EKG T [place] 11 degrees EXTERNAL EKG 10/29/2024 12:1 1 PM CDT Impressions EXTERNAL EKG - 10/31/2024 10:29 PM CDT Normal sinus rhythm Normal ECG When compared with ECG of 26-OCT-2024 03:24, QT has shortened Confirmed by Noni Go ([id number]) on 10/31/2024 10:29:19 PM Narrative Procedure Note Noni Go DO - 10/31/2024 IMPRESSION: Normal sinus rhythm Normal ECG When compared with ECG of 26-OCT-2024 03:24, QT has shortened Confirmed by Noni Go ([id number]) on 10/31/2024 10:29:19 PM Jose Salinas MD IMG ECG ORDERABLES Final R esult Performing Organization Address City/[facility]/ZIP Co de Phone Number EXTERNAL EKG * EKG SCAN (10/29/2024 12:00 AM CDT) Only the most recent of5 resultswithin the time period is included. 10/29/2024 us Provider Scan IMG ECG ORDERABLES Final Result RESULTING AGENCY * (ABNORMAL) BMP with Ca, Total (10/27/2024 6:56 AM CDT) Only the most recent of4 resultswithin the time period is included. SODIUM 138 136 - 145 mmol/L 10/27/2024 7:18 AM CDT [facility] POTASSIUM 3.9 3.5 - 5.1 mmol/L 10/27/2024 7:18 AM CDT [facility] CHLORIDE 108(H) 98 - 107 mmol/L 10/27/2024 7:18 AM CDT [facility] CO2, VENOUS 24 22 - 30 mmol/L 10/27/2024 7:18 AM CDT [facility] ANION GAP 9.9 <18.0 mmol/L 10/27/2024 7:18 AM CDT [facility] GLUCOSE 151(H) 70 - 99 mg/dL 10/27/2024 7:18 AM CDT [facility] BUN 14 8 - 26 mg/dL 10/27/2024 7:18 AM CDT [facility] CREATININE, BLOOD 1.07 0.70 - 1.30 mg/dL 10/27/2024 7:18 AM CDT [facility] BUN/CREATININE RATIO 13 12 - 20 ratio 10/27/2024 7:18 AM CDT [facility] CALCIUM 7.5(L) 8.7 - 10.5 mg/dL 10/27/2024 7:18 AM CDT [facility] GFR, ESTIMATED >60 >=60 10/27/2024 7:18 AM CDT [facility] Comment: Creatinine Clearance is the preferred criteria for selecting drug dose adjustments in renally impaired patients. The GFR is provided as additional pertinent clinical information. GFR is reported in mL/min/1.73 sq m. Calculation based on the Chronic Kidney Disease Epidemiology Collaboration (CKD- EPI) equation refit without adjustment for race. GFR, EST. >60 >=60 025 7:18 AM CDT [facility] GFR, EST. NONAFRICAN >60 >=60 10/27/2024 7:18 AM CDT [facility] Blood Venipuncture / Unknown 10/27/2024 6:56 AM CDT 10/27/2024 6:56 AM CDT us Susan Wilson HEAD OPERATOR, RIVETER PNEUMATIC CHEMISTRY ORDERABLES Sophie l Result [facility] [address] [place] [address] * Manual Differential (10/26/2024 3:32 AM CDT) BANDS % 4.0 % 10/26/2024 5:45 AM CDT [facility] NEUTROPHILS % 65.0 40.0 - 68.0 % 10/26/2024 5:45 AM CDT [facility] LYMPHOCYTES % 23.0 19.0 - 49.0 % 10/26/2024 5:45 AM CDT [facility] MONOCYTES % 6.0 3.0 - 13.0 % 10/26/2024 5:45 AM CDT [facility] EOSINOPHILS % 2.0 0.0 - 8.0 % 10/26/2024 5:45 AM CDT [facility] NEUTROPHILS ABSOLUTE 4.20 1.50 - 6.70 10(3)/mcL 10/26/2024 5:45 AM CDT [facility] LYMPHOCYTES ABSOLUTE 1.40 0.90 - 3.30 10(3)/mcL 10/26/2024 5:45 AM CDT [facility] MONOCYTES ABSOLUTE 0.37 0.10 - 0.90 10(3)/mcL 10/26/2024 5:45 AM CDT [facility] EOSINOPHILS ABSOLUTE 0.12 0.00 - 0.50 10(3)/mcL 10/26/2024 5:45 AM CDT [facility] RBC MORPHOLOGY CONSISTENT WITH INDICES Yes 10/26/2024 5:45 AM CDT [facility] WBC MORPH STATUS Normal 10/27/19 25 5:45 AM CDT [facility] PLATELET STATUS Normal 5 5:45 AM CDT [facility] Blood Venipuncture / Unknown 10/26/2024 3:32 AM CDT 10/26/2024 3:39 AM CDT us Susan Wilson HEAD OPERATOR, RIVETER PNEUMATIC HEMATOLOGY ORDERABLES Fin al Result [facility] [place] [address] * ADULT TRANS ESOPHAGEAL ECHO COMPLETE (10/24/2024 11:47 AM CDT) LV EF(estimated)% 53 RESULTING AGENCY Anatomical Region Laterality Modality CARDIO N/A Ultrasound Narrative 10/24/2024 11:46 AM CDT Transesophageal Echocardiography Report (NJ) Patient Name GURPREET Sánchez Monica 1945 Patient ID (UPI) [id number] Study Date10/24/2024 Type of Study: NJ procedure: Complete. Conclusions Summary The left ventricle is normal in size. LV EF of 50-55%. The left atrium size is normal. No thrombus in left atrial appendage with high velocities. Findings Mitral Valve The mitral valve is normal. There is no evidence of mitral stenosis. There is no significant mitral regurgitation. Aortic Valve The aortic valve is trileaflet with normal leaflet excursion. There is no evidence of aortic valve stenosis. There is no significant aortic valve insufficiency. Tricuspid Valve The tricuspid valve is normal. There is no evidence of tricuspid stenosis. There is no significant tricuspid regurgitation. There is no evidence of pulmonary hypertension. Pulmonic Valve The pulmonic valve structure appears normal. There is no evidence of pulmonic stenosis. There is no significant pulmonic valve regurgitation. Left Ventricle The left ventricle is normal in size. LV EF of 50-55%. Right Ventricle Normal right ventricular cavity size and normal systolic function. Left Atrium The left atrium size is normal. No thrombus in left atrial appendage with high velocities. Right Atrium The right atrium size is normal. Structures Demographics Age 78 Gender Male Race Height 72.01 in. Weight 210.5lbs. BMI 28.54 kg/m^2 Administrative Services Assistant Room 242 Interpreting Tru Referring Physician Scarlett Physician Procedure Note Scarlett Ott MD - 10/24/2024 Transesophageal Echocardiography Report (NJ) Patient Name GURPREET Sánchez Monica 1945 Patient ID (UPI) [id number] Study Date10/24/2024 Type of Study: NJ procedure: Complete. Conclusions Summary The left ventricle is normal in size. LV EF of 50-55%. The left atrium size is normal. No thrombus in left atrial appendage with high velocities. Findings Mitral Valve The mitral valve is normal. There is no evidence of mitral stenosis. There is no significant mitral regurgitation. Aortic Valve The aortic valve is trileaflet with normal leaflet excursion. There is no evidence of aortic valve stenosis. There is no significant aortic valve insufficiency. Tricuspid Valve The tricuspid valve is normal. There is no evidence of tricuspid stenosis. There is no significant tricuspid regurgitation. There is no evidence of pulmonary hypertension. Pulmonic Valve The pulmonic valve structure appears normal. There is no evidence of pulmonic stenosis. There is no significant pulmonic valve regurgitation. Left Ventricle The left ventricle is normal in size. LV EF of 50-55%. Right Ventricle Normal right ventricular cavity size and normal systolic function. Left Atrium The left atrium size is normal. No thrombus in left atrial appendage with high velocities. Right Atrium The right atrium size is normal. Structures Demographics Age 78 Gender Male Race Height 72.01 in. Weight 210.5lbs. BMI 28.54 kg/m^2 Administrative Services Assistant Room 242 Interpreting Tru Referring Physician Scarlett Physician Result [facility] Edelmira Rao APRN, CNP IMG ECHO ORDER THEA Edited Result - Final * CARDIOVERSION TOP AND SEAT COVER FITTER (10/24/2024 11:43 AM CDT) Anatomical Region Laterality Modality CARDIO N/A X-Ray Angiograph y Narrative 10/24/2024 12:15 PM CDT CARDIOVERSION PROCEDURE DETAILS: Ms. Fofana is recommended to have a cardioversion performed for Atrial flutterwith uncontrolled rate. Patient was explained of the procedure at length including details, benefits, risks and alternatives. Patient is willing to proceed with it. After obtaining informed consent and administering sedation , we performed NJ which showed no thrombus in Left atrium and we decided to proceed with Cardioversion. Using dual pad anterior chest technique and a Biphasic machine, A single 200 Joules shock was administered. Patient tolerated the procedure well. The patient converted to normal sinus rhythm with a single shock. Procedure duration: 10 mins. Complications: none. Estimated Blood Loss: none. Result: Successful cardioversion from atrial flutter to NSR. Plan: Recovery from sedation. Repeat electrocardiogram. Discharge home in 2 hours as if patient is asymptomatic and ambulant. Result [facility] Scarlett Ott MD IMG ELECTROPHYSIOLOGY ORDERA BLES Final Result * ADULT TRANS THORACIC ECHO 2D COMPLT W CONT (10/24/2024 10:11 AM CDT) AV Peak Grad mmHg 5.95 mmHg RESULTING AGENCY Mean Aortic Valve Gradient (MAVG) 3 mmHg RESULTING AGENCY LV end regis diam cm 4.6 cm RESULTING AGENCY LV end sys diam cm 3.3 cm RESULTING AGENCY Aortic Root Diam cm 3.1 cm RESULTING AGENCY LA vol index ml/m2 28 ml/m2 RESULTING AGENCY LVOT Peak Phillip m/sec 1.01 m/sec RESULTING AGENCY AV Peak Phillip m/sec 1.22 m/sec RESULTING AGENCY MV Mean Grad mmHg 2 mmHg RESULTING AGENCY MVA by PHT cm2 6.88 cm2 RESUL TING AGENCY E/A Ratio 1.28 RESULTING AGENCY E/E' 6.4 RESULTING AGENCY AV Area (VTI) cm2 2.84 cm2 RESULTING AGENCY SEPTUM DIASTOLIC CM 1.1 cm RESULTING AGENCY PW DIASTOLIC CM 1.7 cm RESU LTING AGENCY LA VOLUME 61 ml RESULTING AGENCY LV EF(estimated)% 60 RESULTING AGENCY Anatomical Region Laterality Modality CARDIO N/A Ultrasound Narrative 10/24/2024 11:20 AM CDT Transthoracic Echocardiography Report (TTE) Patient name GURPREET Sánchez Monica 1945 Patient ID (UPI) [id number] Study Date10/24/2024 Technical quality: Poor visualization Limitation Reason: Lung artifact Type of Study: TTE procedure: Adult Trans Thoracic Echo 2D Complete, Adult Trans Thoracic Echo 2D Complt W Cont. Priority:RoutineHR: 108 bpmBP: 127/84 mmHg Conclusions Summary The left ventricle is normal in size. Concentric remodeling noted. LV function is normal There are no regional wall motion abnormalities. LV EF of 60%. AF rhythm does not allow for full description of diastology. Findings Mitral Valve The mitral valve is normal. There is no evidence of mitral stenosis. There is no significant mitral regurgitation. Aortic Valve The aortic valve is trileaflet with normal leaflet excursion. There is no evidence of aortic valve stenosis. There is no significant aortic valve insufficiency. Tricuspid Valve The tricuspid valve is normal. There is no evidence of tricuspid stenosis. There is no significant tricuspid regurgitation. Insufficient TR jet to estimate PASP. Pulmonic Valve The pulmonic valve structure appears normal. There is no evidence of pulmonic stenosis. There is no significant pulmonic valve regurgitation. Left Atrium The left atrium size is normal. Left Ventricle The left ventricle is normal in size. Concentric remodeling noted. LV function is normal There are no regional wall motion abnormalities. LV EF of 60%. AF rhythm does not allow for full description of diastology. Right Atrium The right atrium size is normal. Right Ventricle Normal right ventricular cavity size and normal systolic function. Pericardial Effusion The pericardium is normal. There is no pericardial effusion visualized. Pleural Effusion Pleural effusion noted on the left. Miscellaneous Aortic root and proximal ascending aorta are normal in size. Atrial septum appears intact. IVC is normal in size and respiratory response. Valves Mitral Valve Area (PHT): 6.88 cm^2 Area (continuity): 3.51 cm^2 Peak E-Wave: 1.04 m/s Mean Velocity: 0.70 m/s Peak A-Wave: 0.81 m/s Mean Gradient: 2 mmHg Peak Gradient: 4.33 mmHg Deceleration Time: 108 msec P1/2t: 32 msec Tissue Doppler E' Velocity: 0.09 m/s E/E':6.4 E/A Ratio: 1.28 E/Lat E': 6.4 E/Med E':11.2 Aortic Valve Area (continuity): 2.84 cm^2 Mean Velocity: 0.90 m/s Area (VTI):2.84 cm^2 Mean Gradient: 3 mmHg Peak Velocity: 1.22 m/s AV VTI: 21.1 cm Peak Gradient: 5.95 mmHg Tricuspid Valve Pulmonic Valve Peak Velocity: 1.15 m/s Mean Velocity: 0.76 m/s Peak Gradient: 5.29 mmHg Mean Gradient: 3 mmHg LVOT Peak Velocity: 1.01 m/s Mean Velocity: 0.79 m/s Peak Gradient: 4 mmHg Mean Gradient: 3 mmHg LVOT Diameter: 2 cm LVOT VTI: 19.1 cm Stroke Volume: 60 ml Stroke Volume Index: 27.52 ml/m^2 Structures Left Ventricle Diastolic Dimension: 4.6 cm Systolic Dimension: 3.3 cm Septum Diastolic: 1.1 cm Septum Systolic: 1.5 cm PW Diastolic: 1.7 cm PW Systolic: 2 cm Diastolic Length: 23.7 cm Systolic Length: 14.3 cm CO: 6.48 l/min CI: 2.97 l/min*m^2 RWT: 0.74 FS: 28.26 % LV EDV: 77.1 ml LV Length: 7.09 cm LV EDV Index: 35 m^2 LVOT Diameter: 2 cm Right Ventricle RVOT (PLAX) diameter:3.6 cm Tissue Doppler RV S': 18.2 TAPSE: 2.38 cm Left Atrium LA Systolic Pressure: 9.98 mmHg LA Area: 21.9 cm^2 LA Volume: 61 ml LA Index: 28ml/m^2 Right Atrium RA Area: 17.8 cm^2 Great Vessels Aorta Ascending Aorta: 3.2 cm Aorta Root:3.1 cm Ascending Aorta Index:1.47 cm/m^2 Billing ICD 9 Codes 1) 148.9-Atrial Fibrillation/ Atrial Flutter. Demographics Age 78 Gender Male Race Height 72.01 in. Weight 210.5 lbs. BMI (BSA) 28.54 kg/m^2 (2.18 m^2) Administrative Services Assistant Grey Laureano [facility] 242 Interpreting Agapito Mejía Referring Physician Jelly FERGUSON Physician Tru Pantoja Procedure Note Scarlett Ott MD - 10/24/2024 Transthoracic Echocardiography Report (TTE) Patient name GURPREET TRIVEDI Ben Anderson 1945 Patient ID (UPI) [id number] Study Date10/24/2024 Technical quality: Poor visualization Limitation Reason: Lung artifact Type of Study: TTE procedure: Adult Trans Thoracic Echo 2D Complete, Adult Trans Thoracic Echo 2D Complt W Cont. Priority:RoutineHR: 108 bpmBP: 127/84 mmHg Conclusions Summary The left ventricle is normal in size. Concentric remodeling noted. LV function is normal There are no regional wall motion abnormalities. LV EF of 60%. AF rhythm does not allow for full description of diastology. Findings Mitral Valve The mitral valve is normal. There is no evidence of mitral stenosis. There is no significant mitral regurgitation. Aortic Valve The aortic valve is trileaflet with normal leaflet excursion. There is no evidence of aortic valve stenosis. There is no significant aortic valve insufficiency. Tricuspid Valve The tricuspid valve is normal. There is no evidence of tricuspid stenosis. There is no significant tricuspid regurgitation. Insufficient TR jet to estimate PASP. Pulmonic Valve The pulmonic valve structure appears normal. There is no evidence of pulmonic stenosis. There is no significant pulmonic valve regurgitation. Left Atrium The left atrium size is normal. Left Ventricle The left ventricle is normal in size. Concentric remodeling noted. LV function is normal There are no regional wall motion abnormalities. LV EF of 60%. AF rhythm does not allow for full description of diastology. Right Atrium The right atrium size is normal. Right Ventricle Normal right ventricular cavity size and normal systolic function. Pericardial Effusion The pericardium is normal. There is no pericardial effusion visualized. Pleural Effusion Pleural effusion noted on the left. Miscellaneous Aortic root and proximal ascending aorta are normal in size. Atrial septum appears intact. IVC is normal in size and respiratory response. Valves Mitral Valve Area (PHT): 6.88 cm^2 Area (continuity): 3.51 cm^2 Peak E-Wave: 1.04 m/s Mean Velocity: 0.70 m/s Peak A-Wave: 0.81 m/s Mean Gradient: 2 mmHg Peak Gradient: 4.33 mmHg Deceleration Time: 108 msec P1/2t: 32 msec Tissue Doppler E' Velocity: 0.09 m/s E/E':6.4 E/A Ratio: 1.28 E/Lat E': 6.4 E/Med E':11.2 Aortic Valve Area (continuity): 2.84 cm^2 Mean Velocity: 0.90 m/s Area (VTI):2.84 cm^2 Mean Gradient: 3 mmHg Peak Velocity: 1.22 m/s AV VTI: 21.1 cm Peak Gradient: 5.95 mmHg Tricuspid Valve Pulmonic Valve Peak Velocity: 1.15 m/s Mean Velocity: 0.76 m/s Peak Gradient: 5.29 mmHg Mean Gradient: 3 mmHg LVOT Peak Velocity: 1.01 m/s Mean Velocity: 0.79 m/s Peak Gradient: 4 mmHg Mean Gradient: 3 mmHg LVOT Diameter: 2 cm LVOT VTI: 19.1 cm Stroke Volume: 60 ml Stroke Volume Index: 27.52 ml/m^2 Structures Left Ventricle Diastolic Dimension: 4.6 cm Systolic Dimension: 3.3 cm Septum Diastolic: 1.1 cm Septum Systolic: 1.5 cm PW Diastolic: 1.7 cm PW Systolic: 2 cm Diastolic Length: 23.7 cm Systolic Length: 14.3 cm CO: 6.48 l/min CI: 2.97 l/min*m^2 RWT: 0.74 FS: 28.26 % LV EDV: 77.1 ml LV Length: 7.09 cm LV EDV Index: 35 m^2 LVOT Diameter: 2 cm Right Ventricle RVOT (PLAX) diameter:3.6 cm Tissue Doppler RV S': 18.2 TAPSE: 2.38 cm Left Atrium LA Systolic Pressure: 9.98 mmHg LA Area: 21.9 cm^2 LA Volume: 61 ml LA Index: 28ml/m^2 Right Atrium RA Area: 17.8 cm^2 Great Vessels Aorta Ascending Aorta: 3.2 cm Aorta Root:3.1 cm Ascending Aorta Index:1.47 cm/m^2 Billing ICD 9 Codes 1) 148.9-Atrial Fibrillation/ Atrial Flutter. Demographics Age 78 Gender Male Race Height 72.01 in. Weight 210.5 lbs. BMI (BSA) 28.54 kg/m^2 (2.18 m^2) Administrative Services Assistant Grey Laureano Room 242 Interpreting Dewayneboris Mejía Referring Physician Jelly FERGUSON Physician Tru Pantoja Susan Wilson APRN, RIVETER PNEUMATIC IMG ECHO ORDERABLES Edite d Result - Final * PHOSPHORUS (PO4) (10/24/2024 4:02 AM CDT) Pathologist [facility] PHOSPHORUS 3.0 2.5 - 4.5 mg/dL 10/24/2024 5:21 AM CDT [facility] Blood Venipuncture / Unknown 10/24/2024 4:02 AM CDT 10/24/2024 4:46 AM CDT Shobha Vazquez APRN, KEEGAN CHEMISTRY ORDERABLES Final Result [facility]1 [place] [address] * (ABNORMAL) Hemoglobin A1C (if indicated) (10/19/2024 11:45 AM CDT) [facility] HGB-A1C 7.0(H) 4.0 - 6.0 % 10/19/2024 5:22 PM CDT [facility] Est Average Glucose 154.2 mg/dL 10/19/2024 5:22 PM CDT [facility] Blood Venipuncture / Unknown 10/19/2024 11:45 AM CDT 10/19/2024 12:27 PM CDT Narrative [facility] - 10/19/2024 5:22 PM CDT HEMOGLOBIN A1C: DIABETIC PATIENTS: WELL-CONTROLLED: 6.2 - 7.0 INTERMEDIATE WELL-CONTROLLED: 7.0 - 9.0 POORLY-CONTROLLED: >9.0 Specimens containing greater than 5% of Hemoglobin F may result in lower than expected % HbA1C results. Noé Hall HEAD OPERATOR, RIVETER PNEUMATIC CHEMISTRY ORDERABLES Fi nal Result [facility] [place] [address] * HM DILATED EYE EXAM (04/19/2024 12:00 AM INSURANCE SALES SUPERVISOR) 04/19/2024 us Provider Scan PROCEDURE/MINOR SURGICAL ORDERAB LES Final Result SCAN * HEPATITIS C ANTIBODY (01/28/2023 11:35 AM CDT) hepatitis C antibody 0.07 <1 S/CO [facility] ARCH [id number] B 01/28/2023 10:35 PM CDT [facility] Comment: Signal/Cutoff ratio < 0.79 is Nondetected Signal/Cutoff ratio 0.80-0.99 is Grayzone Signal/Cutoff ratio > 0.99 is Detected Supplemental assays are recommended if signal/cutoff ratio is >/=1.00. Signal/cutoff ratio result >/= 5.00 is 97% predictive of positivity for recombinant immunoblot assay (RIBA) and will be reported to the [place] Department of Public Health as required. Blood Venipuncture / Unknown 01/28/2023 11:35 AM CDT 01/28/2023 11:35 AM CDT us Manuel Ravi MD CHEMISTRY ORDERABLES Sophie sánchez Result [facility] [address] [place] [address], [place] from Last 3 Months or Most Recently Relevant to Health Maintenance Insurance MEDICARE [employer] Advance Directives * Full Code (Latest Code Status on File) Date Activated Date Inactivated Comments 10/29/2024 7:10 PM CPR-Full Treat ment: FULL ARREST: Attempt Resuscitation/CPR wit intubation and mechanical ventilation. PRE-ARREST: Use entire range of life support measures to stabilize the patient. * Full Code Date Activated Date Inactivated Comments 10/19/2024 4:46 PM 10/29/2024 7:10 PM CPR-Full Nate atment: FULL ARREST: Attempt Resuscitation/CPR wit intubation and mechanical ventilation. PRE-ARREST: Use entire range of life support measures to stabilize the patient. Care Teams Medical Information Officer Relationship Specialty Start Date End Date Kathleen Aviles, HEAD OPERATOR, RIVETER PNEUMATIC [address] [place] [address] PCP - General Certified Nurse Practitioner 02/01/24 Abraham Lazaro MD #[address] [id number] Consulting Physician Endocrinology 07/19/21
== END 2025-01-24 13:00 | disposition home or self-care (01) ==
PROVIDERS: Visit Provider Internal Medicine Pulmonary Disease
DX: J84.9 Interstitial pulmonary disease, unspecified (principal); R76.8 Other specified abnormal immunological findings in serum; R16.1 Splenomegaly, not elsewhere classified; R59.0 Localized enlarged lymph nodes
CPT/HCPCS: 71250

== ENCOUNTER 2025-01-25 08:12 | Outpatient (CLI) | payer MEDICARE, OTHER, SELFPAY ==
--- OUTSIDE RECORDS SUMMARY | 2025-01-24 02:45 | XMS_ITS ---
Author Organization [facility] Address [address] [place] [id number] Care Team Providers Care Stucco Laborer Name Role Phone MARIAMA ANDERSON Primary Care Provider [phone] Yasmeen Matta Unavailable [phone] REASON FOR VISIT LV, skilled f/u Medications Medication SIG (Take, Route, Frequency, Duration) Notes Start Date End Date Status Arginaid - Packet as directed Orally 3 times a day Active Admelog 100 UNIT/ML Solution as directed Injection 3 times a day per sliding scale If Blood Sugar is less than 70, call MD. If Blood Sugar is 151 to 200, give 1 Units. If Blood Sugar is 201 to 250, give 2 Units. If Blood Sugar is 251 to 300, give 3 Units. If Blood Sugar is 301 to 350, give 4 Units. If Blood Sugar is 351 to 400, give 5 Units. If Blood Sugar is greater than 400, call MD. subcutaneous Active Acetaminophen 325 MG Tablet 2 tablet as needed Orally every 6 hrs Active Mucinex DM 30-600 MG Tablet Extended Release 12 Hour 1 tablet twice a day x5 days and then p.r.n. Orally twice a day 01/20/2025 Active Fluticasone Propionate 93 MCG/ACT Exhaler Suspension spray (1 spray in each nostril) Nasally Twice a day; Duration: 30 days 01/20/2025 Active Atorvastatin Calcium 10 MG Tablet 1 tablet Orally Once a day Active Calcium Carbonate Antacid 400 MG Tablet Chewable 2 tablets Orally daily Active Bisacodyl 10 MG Suppository 1 suppositor y as needed Rectal Once a day Active Benzonatate 100 MG Capsule 1 capsule as needed Orally every 6 hours Active Bactrim DS 800-160 MG Tablet 1 tablet Orally Three times a Week Zuleyma Koelher, Thu Active Melatonin 5 MG Tablet 1 tablet in the ev ening Orally Once a day Active Lasix 20 MG Tablet 1 tablet Orally Once a day Active Lantus 100 UNIT/ML Solution 20 units nig htly at bedtime Subcutaneous daily Active Fluticasone Propionate 50 MCG/ACT Suspension 1 spray in each nostril Nasally Once a day As needed Active Eliquis 5 MG Tablet 1 tablet Orally twic e a day Active metFORMIN HCl 500 MG Tablet 1 tablet wit h a meal Orally twice a day Active Pantoprazole Sodium 40 MG Tablet Delayed Release 1 tablet Orally twice a day Active Ondansetron HCl 4 MG Tablet 1 tablet Orally every 6 hours As needed Active MiraLax 17 GM/SCOOP Powder 1 gram mixed with 8 ounces of fluid Orally Once a day As needed Active Milk of Magnesia 400 MG/5ML Suspension 30 mL as needed Orally Once a day Active Lidocaine 5 % Patch 1 patch remove after 12 hours Externally Once a day Active predniSONE 20 MG Tablet 1 tablet with fo od or milk Orally Once a day Active Vitamin D (Cholecalciferol) 25 MCG (1000 UT) Capsule 1 capsule Orally Once a day Active Tamsulosin HCl 0.4 MG Capsule 1 capsule Orally Once a day Active Encounters Encounter Location Date Provider Diagnosis [facility] [address] [place] [address] 01/24/2025 Yasmeen Matta Plan Of Treatment Next Appt Details Provider Name:Yasmeencruz Matta , 01/26/2025 06:45:00 AM, [address] [place] [address], [address], Progress Notes * Sheri FOFANAOB:1945 (79 yo M)Acc No.[id number]:01/24/2025 Patient: S Zack siegel Provider: YURIY Bejarano :1945 A ge:79 Y S ex:Male Date:01/24/2025 [facility] Pcp:MARIAMA ANDERSON Subjective: * Chief Complaints: * L V, skilled f/u * Medications: T akingLidocaine 5 % Patch 1 patch remove after 12 hours Externally Once a day predniSONE 20 MG Tablet 1 tablet with food or milk Orally Once a day Vitamin D (Cholecalciferol) 25 MCG (1000 UT) Capsule 1 capsule Orally Once a day Tamsulosin HCl 0.4 MG Capsule 1 capsule Orally Once a day Pantoprazole Sodium 40 MG Tablet Delayed Release 1 tablet Orally twice a day Ondansetron HCl 4 MG Tablet 1 tablet Orally every 6 hours As neededMiraLax 17 GM/SCOOP Powder 1 gram mixed with 8 ounces of fluid Orally Once a day As neededMilk of Magnesia 400 MG/5ML Suspension 30 mL as needed Orally Once a day metFORMIN HCl 500 MG Tablet 1 tablet with a meal Orally twice a day Melatonin 5 MG Tablet 1 tablet in the evening Orally Once a day Lasix 20 MG Tablet 1 tablet Orally Once a day Lantus 100 UNIT/ML Solution 20 units nightly at bedtime Subcutaneous daily Fluticasone Propionate 50 MCG/ACT Suspension 1 spray in each nostril Nasally Once a day As neededEliquis 5 MG Tablet 1 tablet Orally twice a day Calcium Carbonate Antacid 400 MG Tablet Chewable 2 tablets Orally daily Bisacodyl 10 MG Suppository 1 suppository as needed Rectal Once a day Benzonatate 100 MG Capsule 1 capsule as needed Orally every 6 hours Bactrim DS 800-160 MG Tablet 1 tablet Orally Three times a Week Sun, Tue, ThuAtorvastatin Calcium 10 MG Tablet 1 tablet Orally Once a day Arginaid - Packet as directed Orally 3 times a day Admelog 100 UNIT/ML Solution as directed Injection 3 times a day per sliding scale If Blood Sugar is less than 70, call MD. If Blood Sugar is 151 to 200, give 1 Units. If Blood Sugar is 201 to 250, give 2 Units. If Blood Sugar is 251 to 300, give 3 Units. If Blood Sugar is 301 to 350, give 4 Units. If Blood Sugar is 351 to 400, give 5 Units. If Blood Sugar is greater than 400, call MD. subcutaneousAcetaminophen 325 MG Tablet 2 tablet as needed Orally every 6 hrs Mucinex DM 30-600 MG Tablet Extended Release 12 Hour 1 tablet twice a day x5 days and then p.r.n. Orally twice a day Fluticasone Propionate 93 MCG/ACT Exhaler Suspension spray (1 spray in each nostril) Nasally Twice a day Taking Lidocaine 5 % Patch 1 patch remove after 12 hours Externally Once a day Taking predniSONE 20 MG Tablet 1 tablet with food or milk Orally Once a day Taking Vitamin D (Cholecalciferol) 25 MCG (1000 UT) Capsule 1 capsule Orally Once a day Taking Tamsulosin HCl 0.4 MG Capsule 1 capsule Orally Once a day Taking Pantoprazole Sodium 40 MG Tablet Delayed Release 1 tablet Orally twice a day Taking Ondansetron HCl 4 MG Tablet 1 tablet Orally every 6 hours As neededTaking MiraLax 17 GM/SCOOP Powder 1 gram mixed with 8 ounces of fluid Orally Once a day As neededTaking Milk of Magnesia 400 MG/5ML Suspension 30 mL as needed Orally Once a day Taking metFORMIN HCl 500 MG Tablet 1 tablet with a meal Orally twice a day Taking Melatonin 5 MG Tablet 1 tablet in the evening Orally Once a day Taking Lasix 20 MG Tablet 1 tablet Orally Once a day Taking Lantus 100 UNIT/ML Solution 20 units nightly at bedtime Subcutaneous daily Taking Fluticasone Propionate 50 MCG/ACT Suspension 1 spray in each nostril Nasally Once a day As neededTaking Eliquis 5 MG Tablet 1 tablet Orally twice a day Taking Calcium Carbonate Antacid 400 MG Tablet Chewable 2 tablets Orally daily Taking Bisacodyl 10 MG Suppository 1 suppository as needed Rectal Once a day Taking Benzonatate 100 MG Capsule 1 capsule as needed Orally every 6 hours Taking Bactrim DS 800-160 MG Tablet 1 tablet Orally Three times a Week Zakia Atorvastatin Calcium 10 MG Tablet 1 tablet Orally Once a day Taking Arginaid - Packet as directed Orally 3 times a day Taking Admelog 100 UNIT/ML Solution as directed Injection 3 times a day per sliding scale If Blood Sugar is less than 70, call MD. If Blood Sugar is 151 to 200, give 1 Units. If Blood Sugar is 201 to 250, give 2 Units. If Blood Sugar is 251 to 300, give 3 Units. If Blood Sugar is 301 to 350, give 4 Units. If Blood Sugar is 351 to 400, give 5 Units. If Blood Sugar is greater than 400, call MD. subcutaneousTaking Acetaminophen 325 MG Tablet 2 tablet as needed Orally every 6 hrs Taking Mucinex DM 30-600 MG Tablet Extended Release 12 Hour 1 tablet twice a day x5 days and then p.r.n. Orally twice a day Taking Fluticasone Propionate 93 MCG/ACT Exhaler Suspension spray (1 spray in each nostril) Nasally Twice a day * Electronic signature of RIP Melendez on 01/25/2025 at 08:38 AM CDT Sign off status: Pending * Provider: YURIY Bejarano Date: 0 01/24/2025 Generated for Lawrence cortés/Barbara/Elijah on: 0 01/25/2025 08:38 AM CDT
--- OUTSIDE RECORDS SUMMARY | 2025-01-24 03:24 | XMS_ITS ---
[facility] Organization [facility] Address [address] [place] [id number] Care Team Providers Care Bellman Captain Name Role Phone MARIAMA ANDERSON Primary Care Provider [phone] REASON FOR VISIT chart prep Medications Medication [...] Nonsmoker Encounters Encounter Location Date Provider Diagnosis [facility] [address] [place], [place] [id number] 01/24/2025 MARIAMA ANDERSON Plan Of Treatment Next Appt Details Provider Name:Yasmeen Matta , 01/26/2025 06:45:00 AM, [address] [place] [address], [id number], Progress Notes * Sheri FOFANAOB:1945 (79 yo M)Acc No.[id number]:01/24/2025 Patient: Zack ROCK :1945 A ge:79 Y S ex:Male Address:[facility] [place], [address] Subjective: * Chief Complaints: * C pope [...] Date: Generated for Lawrence cortés/Barbara/Elijah on: 0 01/25/2025 08:39 AM CDT
--- OUTSIDE RECORDS SUMMARY | 2025-01-24 04:03 | XMS_ITS ---
Author Organization [facility] Address [address] [place] [phone] Care Team Providers Care Sterilizer Operator Name Role Phone MARIAMA ANDERSON Primary Care Provider PaxtonElizabethYasmeen Unavailable [phone] Allergies No Known Allergies REASON FOR VISIT [...] Nonsmoker Encounters Encounter Location Date Provider Diagnosis [address] [address] 01/24/2025 Yasmeen Matta Plan Of Treatment Next Appt Details Provider Name:Yasmeen Paxton , 01/26/2025 06:45:00 AM, [address], [address], Progress Notes * Sheri FOFANAOB:1945 (79 yo M)Acc No.[id number]:01/24/2025 Patient: Zack ROCK :1945 A ge:79 Y S ex:Male Address:[facility] [address], [place], [address] Subjective: * Chief Complaints: * C BRUNO [...]
[2025-01-25] VITALS (8 sets, daily range): PULSE 80–110; O2SAT 86–92
--- OUTSIDE RECORDS SUMMARY | 2025-01-25 08:38 | XMS_ITS | Encounter Summary ---
Author Organization [facility] Address [address] [place] [address] Care Team Providers Care Senior Environmental Technician Name Role Phone Unavailable Primary Care Provider Unavailabl e Encounter Details Date Type Department Care Team (Late st Contact Info) Description 11/18/2024 Lab Requisition [facility] [id number] [place] [address] [place] [id number] [place] [address] Social History Tobacco Use Types [...] - 145 mmol/L 11/18/2024 10:[address] [facility] POTASSIUM 4.7 3.4 - 5.1 mmol/L 11/18/2024 10:[address] [facility] CHLORIDE 105 98 - 107 mmol/L 11/18/2024 10:[address] [facility] CO2 22 22 - 29 mmol/L 11/18/2024 10:54 AM CDT [facility] CALCIUM 8.6 8.6 - 10.4 mg/dL 11/18/2024 10:54 AM CDT [facility] BUN 34(H) 6 - 20 mg/dL 11/18/2024 10:54 AM CDT [facility] CREATININE 1.20(H) 0.67 - 1.17 mg/dL 11/18/2024 10:54 AM CDT [facility] Comment:The GFR result is no t clinically significant on patients <18 or >70 years of age. GLUCOSE 97 74 - 99 mg/dL 11/18/2024 10:54 AM T [facility] GFR >60 mL/min/1.7 3 sq meter 11/18/2024 10:54 AM T [facility] Comment:eGFR calculated with 2020 CKD-EPI equation. Vegetarian diet, extremely high or low muscle mass, and may affect results. Cystatin C with Glomerular Filtration Rate is a suitable alternative for these patients. ANION GAP 10 8 - 16 mmol/L 11/18/2024 10:54 AM T [facility] Blood 11/18/2024 4:00 AM CDT 11/18/2024 10:20 AM CDT us Darlin Stapleton MD CHEMISTRY ORDERABLES Final Resul t [facility] CLIA# [id number] [place] [address] * (ABNORMAL) CBC WITH DIFFERENTIAL (11/18/2024 4:00 AM CDT) WBC 8.1 4.0 - 9.8 K/uL 11/18/2024 10:28 AM CDT [facility] RBC 3.82(L) 4.50 - 5.40 M/uL 11/18/2024 10:28 AM CDT [facility] HEMOGLOBIN 11.0(L) 13.6 - 16.5 g/dL 11/18/2024 10:[address] [facility] HEMATOCRIT 33.2(L) 40.0 - 48.0 % 11/18/2024 10:[address] [facility] MCV 86.9 82.0 - 99.0 fL 11/18/2024 10:28 [facility] 28.8 27.2 - 32.6 pg 11/18/2024 10:[address] [facility] MCHC 33.1 31.5 - 35.5 g/dL 11/18/2024 10:[address] [facility] RDW 14.9(H) 11.5 - 14.5 % 11/18/2024 10:28 [facility] RDW-STDEV 46.9 37.1 - 48.7 fL 11/18/2024 10:28 AM CDT [facility] PLATELETS 105(L) 140 - 350 K/uL 11/18/2024 10:28 [facility] linkedü [facility] MPV 10.4 9.3 - 12.4 fL 11/18/2024 10:28 AM CDT [facility] NEUTROPHILS 92 % 11/18/2024 10:[address] [facility] LYMPHOCYTES 4 % 11/18/2024 10:28 AM CDT [facility] MONOCYTES 3 % 11/18/2024 10:[address] [facility] EOSINOPHILS 0 % 11/18/2024 10:[address] [facility] BASOPHILS 0 % 11/18/2024 10:28 AM CDT [facility] IMMATURE GRANULOCYTES 1 % 11/18/2024 10:[address] [facility] Comment:IG (Immature Granulo cyte) count includes Metamyelocytes, Myelocytes, and Promyelocytes NEUTROPHIL ABSOLUTE 7.41(H) 1.90 - 7.00 K/uL 11/18/2024 10:28 AM CDT [facility] LYMPHOCYTE ABSOLUTE 0.33(L) 0.70 - 4.50 K/uL 11/18/2024 10:[address] [facility] MONOCYTE ABSOLUTE 0.27 0.10 - 1.30 K/uL 11/18/2024 10:[address] [facility] EOSINOPHIL ABSOLUTE 0.00 0.00 - 0.70 K/uL 11/18/2024 10:[address] [facility] BASOPHILS ABSOLUTE 0.01 0.00 - 0.20 K/uL 11/18/2024 10:[address] [facility] IMMATURE GRANULOCYTES ABSOLUTE 0.07(H) 0.00 - 0.03 K/uL 11/18/2024 10:28 AM CDT [facility] Blood 11/18/2024 4:00 AM CDT 11/18/2024 10:20 AM CDT Darlin Stapleton MD HEMATOLOGY ORDERABLES Final Resu lt [facility] CLIA# [id number] [place] [address] documented in this encounter Visit Diagnoses Not [...] the following 6 months, and once thereafter ([id number], Chuyita auris surveillance screening). If negative screen 6 months, R/O C. auris status can be removed. 11/08/2024 12/19/2024 documented as of this encounter
--- OUTSIDE RECORDS SUMMARY | 2025-01-25 08:38 | XMS_ITS | Encounter Summary ---
Author Organization [employer] Address [address] [place] [address] Care Team Providers Care Splitter Machine Name Role Phone Unavailable Primary Care Provider Unavailabl e Encounter Details Date Type Department Care Team (Late st Contact Info) Description 01/24/2025 External Device Data [facility] ABSTRACTION Provider, Abstract NO ADDRESS ON FILE Social History Tobacco Use Types Packs/Day Years Used Date Smoking Tobacco: Never Assessed Sex and Gender Information Value Date Recorded Sex Assigned at Not on file Legal Sex Male 8:58 AM CDT Gender Identity Not on file Sexual Orientation Not on file documented as of this encounter Plan of Treatment Not on file documented as of this encounter Visit Diagnoses [...] the following 6 months, and once thereafter ([id number], Chuyita auris surveillance screening). If negative screen 6 months, R/O C. auris status can be removed. 11/08/2024 12/19/2024 documented as of this encounter
--- OUTSIDE RECORDS SUMMARY | 2025-01-25 08:38 | XMS_ITS | Encounter Summary ---
Author Organization [email or web address] Address [address] [place] [address] Care Team Providers Care Sample Distributor Name Role Phone Unavailable Primary Care Provider [...] the following 6 months, and once thereafter ([id number], Chuyita auris surveillance screening). If negative screen 6 months, R/O C. auris status can be removed. 11/08/2024 12/19/2024 documented as of this encounter
--- OUTSIDE RECORDS SUMMARY | 2025-01-25 08:38 | XMS_ITS | Encounter Summary ---
Author Organization [facility] Address [address] [place] [address] Care Team Providers Care Wooden Frame Builder Name Role Phone Unavailable Primary Care Provider Unavailabl e Encounter Details Date Type Department Care Team (Late st Contact Info) Description 11/16/2024 Lab Requisition [facility] Laboratory Services [address] [place] [address] [place] [address] [place] [address] Social History Tobacco Use Types [...] - 145 mmol/L 11/16/2024 8:03 AM CDT [facility] - [facility] POTASSIUM 4.8 3.4 - 5.1 mmol/L 11/16/2024 8:03 AM CDT [facility] - [facility] CHLORIDE 105 98 - 107 mmol/L 11/16/2024 8:03 AM CDT [facility] - [facility] CO2 23 22 - 29 mmol/L 11/16/2024 8:03 AM CDT [facility] SERVICES - [facility] CALCIUM 8.3(L) 8.6 - 10.4 mg/dL 11/16/2024 8:03 AM T [facility] BUN 33(H) 6 - 20 mg/dL 11/16/2024 8:03 AM T [facility] CREATININE 1.12 0.67 - 1.17 mg/dL 11/16/2024 8:03 AM T [facility] Comment:The GFR result is no t clinically significant on patients <18 or >70 years of age. GLUCOSE 53(LL) 74 - 99 mg/dL 11/16/2024 8:03 AM T [facility] ALBUMIN 2.9(L) 3.5 - 5.2 g/dL 11/16/2024 8:03 AM T [facility] PHOSPHORUS 3.8 2.5 - 4.5 mg/dL 11/16/2024 8:03 AM T [facility] GFR >60 mL/min/1.7 3 sq meter 11/16/2024 8:03 AM T [facility] Comment:eGFR calculated with 2020 CKD-EPI equation. Vegetarian diet, extremely high or low muscle mass, and may affect results. Cystatin C with Glomerular Filtration Rate is a suitable alternative for these patients. ANION GAP 9 8 - 16 mmol/L 11/16/2024 8:03 AM T [facility] Blood Collection / Unknown 11/16/2024 3:20 AM CDT 11/16/2024 7:04 AM CDT us Darlin Stapleton MD CHEMISTRY ORDERABLES Final Resul t [facility] CLIA# [id number] [place] [address] documented in this encounter Visit [...] the following 6 months, and once thereafter ([id number], Chuyita auris surveillance screening). If negative screen 6 months, R/O C. auris status can be removed. 11/08/2024 12/19/2024 documented as of this encounter
--- OUTSIDE RECORDS SUMMARY | 2025-01-25 08:38 | XMS_ITS | Encounter Summary ---
Author Organization [facility] Address [address] [place] [address] Care Team Providers Care Roofing Technician Name Role Phone Unavailable Primary Care Provider Unavailabl e Encounter Details Date Type Department Care Team (Late st Contact Info) Description 11/24/2024 Lab Requisition [facility] Laboratory Services [address] [place] [address] [place] [address] [place] [address] Social History Tobacco Use Types [...] - 9.8 K/uL 11/24/2024 8:32 AM CDT [facility] LABORATORY SERVICES [facility] RBC 4.28(L) 4.50 - 5.40 M/uL 11/24/2024 8:32 AM CDT [facility] LABORATORY [facility] HEMOGLOBIN 12.2(L) 13.6 - 16.5 g/dL 11/24/2024 8:32 AM CDT [facility] HEMATOCRIT 36.3(L) 40.0 - 48.0 % 11/24/2024 8:32 AM CDT [facility] LAB[facility]ORY [facility] MCV 84.8 82.0 - 99.0 fL 11/24/2024 8:32 AM CDT [facility] LABORATORY [facility] MCH 28.5 27.2 - 32.6 pg 11/24/2024 8:32 AM CDT [facility] LAB[facility]ORY [facility] MCHC 33.6 31.5 - 35.5 g/dL 11/24/2024 8:32 AM CDT [facility] LABORATORY [facility] RDW 15.4(H) 11.5 - 14.5 % 11/24/2024 8:32 AM CDT [facility] LABORATORY [facility] RDW-STDEV 47.3 37.1 - 48.7 fL 11/24/2024 8:32 AM CDT [facility] LAB[facility]ORY [facility] PLATELETS 67(L) 140 - 350 K/uL 11/24/2024 8:32 AM CDT [facility] LAB[facility]ORY [facility] MPV 11.0 9.3 - 12.4 fL 11/24/2024 8:32 AM CDT [facility] LAB[facility] NEUTROPHILS 77 % 11/24/2024 8:32 AM CDT [facility] LYMPHOCYTES 16 % 11/24/2024 8:32 AM CDT [facility] MONOCYTES 4 % 11/24/2024 8:32 AM CDT [facility] EOSINOPHILS 2 % 11/24/2024 8:32 AM CDT [facility] BASOPHILS 0 % 11/24/2024 8:32 AM CDT [facility] IMMATURE GRANULOCYTES 1 % 11/24/2024 8:32 AM CDT [facility] Comment:IG (Immature Granulo cyte) count includes Metamyelocytes, Myelocytes, and Promyelocytes NEUTROPHIL ABSOLUTE 3.75 1.90 - 7.00 K/uL 11/24/2024 8:32 AM CDT [facility] LYMPHOCYTE ABSOLUTE 0.77 0.70 - 4.50 K/uL 11/24/2024 8:32 AM CDT [facility] MONOCYTE ABSOLUTE 0.20 0.10 - 1.30 K/uL 11/24/2024 8:32 AM CDT [facility] EOSINOPHIL ABSOLUTE 0.09 0.00 - 0.70 K/uL 11/24/2024 8:32 AM CDT [facility] BASOPHILS ABSOLUTE 0.01 0.00 - 0.20 K/uL 11/24/2024 8:32 AM CDT [facility] IMMATURE GRANULOCYTES ABSOLUTE 0.05(H) 0.00 - 0.03 K/uL 11/24/2024 8:32 AM CDT [facility] Blood Collection / Unknown 11/24/2024 3:00 AM CDT 11/24/2024 7:58 AM CDT us Darlin Stapleton MD HEMATOLOGY ORDERABLES Final Resu lt [facility] CLIA# [id number] [place] [address] * (ABNORMAL) BASIC METABOLIC PANEL (11/24/2024 3:00 AM CDT) SODIUM 133(L) 136 - 145 mmol/L 11/24/2024 8:37 AM CDT [facility] POTASSIUM 4.2 3.4 - 5.1 mmol/L 11/24/2024 8:37 AM CDT [facility] CHLORIDE 99 98 - 107 mmol/L 11/24/2024 8:37 AM CDT [facility] CO2 21(L) 22 - 29 mmol/L 11/24/2024 8:37 AM CDT [facility] CALCIUM 7.9(L) 8.6 - 10.4 mg/dL 11/24/2024 8:37 AM CDT [facility] BUN 32(H) 6 - 20 mg/dL 11/24/2024 8:37 AM CDT [facility] LAB[facility] CREATININE 1.24(H) 0.67 - 1.17 mg/dL 11/24/2024 8:37 AM T [facility] Comment:The GFR result is no t clinically significant on patients <18 or >70 years of age. GLUCOSE 81 74 - 99 mg/dL 11/24/2024 8:37 AM T [facility] GFR 59 mL/min/1.7 3 sq meter 11/24/2024 8:37 AM T [facility] Comment:eGFR calculated with 2020 CKD-EPI equation. Vegetarian diet, extremely high or low muscle mass, and may affect results. Cystatin C with Glomerular Filtration Rate is a suitable alternative for these patients. ANION GAP 13 8 - 16 mmol/L 11/24/2024 8:37 AM T [facility] Blood Collection / Unknown 11/24/2024 3:00 AM CDT 11/24/2024 7:58 AM CDT Darlin Stapleton MD CHEMISTRY ORDERABLES Final Resul t [facility] CLIA# [id number] [address] [place] [address] documented in this encounter Visit Diagnoses Not [...] the following 6 months, and once thereafter ([id number], Chuyita auris surveillance screening). If negative screen 6 months, R/O C. auris status can be removed. 11/08/2024 12/19/2024 documented as of this encounter
--- OUTSIDE RECORDS SUMMARY | 2025-01-25 08:39 | XMS_ITS | Encounter Summary ---
Author Organization [facility] Address [address] [place] [address] Phone Care Team Providers Care Appian Bpm Developer Name Role Phone Manuel Ravi MD Primary Care Provider [phone] Abraham Lazaro MD Unavailable Kathleen Aviles GOLF CLUB MANAGER, CELLAR PACKER Primary Care Provider [phone]- [phone] Reason for Visit * Reason Comments Medication Refill Encounter Details Date Type Department Care Team (Late st Contact Info) Description 06/26/2021 Refill [facility] - Primary Care - [place] [address] [place] [address] Manuel Ravi MD [address] [place], [place] [id number] Medication Refill Social History Tobacco Use Types [...] Description 02/03/2025 1:00 PM CDT [facility] - [place] [address] [place] [id number] Kathleen Aviles, GOLF CLUB MANAGER, CELLAR PACKER [address] [place] [address] documented as of this encounter Visit Diagnoses [...] Total Score: 0 07/01/19 20 10:00 AM PLASTIC SURGERY NURSE documented as of this encounter Care Teams Appian Bpm Developer Relationship Specialty Start Date End Date Manuel Ravi MD [address] [place] [address] PCP - General Internal Medicine 05/15/18 01/31/24 Kathleen Aviles, GOLF CLUB MANAGER, CELLAR PACKER [address] [place] [address] PCP - General Certified Nurse Practitioner 02/01/24 Abraham Lazaro MD [id number] [address] Consulting Physician Endocrinology 07/19/21 documented as of this encounter
--- OUTSIDE RECORDS SUMMARY | 2025-01-25 08:39 | XMS_ITS | Encounter Summary ---
Author Organization [facility] Address [address] [place] [address] Care Team Providers Care Aircraft Pneudraulic Systems Mechanic Name Role Phone Unavailable Primary Care Provider Unavailabl e Encounter Details Date Type Department Care Team (Late st Contact Info) Description 11/15/2024 Lab Requisition [facility] Laboratory Services [address] [place] [address] [place] [address] [place] [address] Social History Tobacco Use Types [...] - 9.8 K/uL 11/15/2024 7:35 AM CDT [facility] LABORATORY SERVICES - [facility] RBC 3.74(L) 4.50 - 5.40 M/uL 11/15/2024 7:35 AM CDT [facility] LAB[facility] - [facility] HEMOGLOBIN 10.5(L) 13.6 - 16.5 g/dL 11/15/2024 7:35 AM CDT [facility] LABORATORY [facility] HEMATOCRIT 32.3(L) 40.0 - 48.0 % 11/15/2024 7:35 AM CDT [facility] LABORATORY [facility] MCV 86.4 82.0 - 99.0 fL 11/15/2024 7:35 AM CDT [facility] LABORATORY [facility] MCH 28.1 27.2 - 32.6 pg 11/15/2024 7:35 AM CDT [facility] LABOR[facility]ORY [facility] MCHC 32.5 31.5 - 35.5 g/dL 11/15/2024 7:35 AM CDT [facility] RDW 14.6(H) 11.5 - 14.5 % 11/15/2024 7:35 AM CDT [facility] RDW-STDEV 44.9 37.1 - 48.7 fL 11/15/2024 7:35 AM CDT [facility] PLATELETS 137(L) 140 - 350 K/uL 11/15/2024 7:35 AM CDT [facility] MPV 10.3 9.3 - 12.4 fL 11/15/2024 7:35 AM CDT [facility] NEUTROPHILS 91 % 11/15/2024 7:35 AM CDT [facility] LYMPHOCYTES 5 % 11/15/2024 7:35 AM CDT [facility] MONOCYTES 3 % 11/15/2024 7:35 AM CDT [facility] EOSINOPHILS 0 % 11/15/2024 7:35 AM CDT [facility] LAB[facility] BASOPHILS 0 % 11/15/2024 7:35 AM CDT [facility] IMMATURE GRANULOCYTES 1 % 11/15/2024 7:35 AM CDT [facility] Comment:IG (Immature Granulo cyte) count includes Metamyelocytes, Myelocytes, and Promyelocytes NEUTROPHIL ABSOLUTE 8.12(H) 1.90 - 7.00 K/uL 11/15/2024 7:35 AM CDT [facility] LAB[facility]ORY [facility] LYMPHOCYTE ABSOLUTE 0.46(L) 0.70 - 4.50 K/uL 11/15/2024 7:35 AM CDT [facility] LABORATORY [facility] MONOCYTE ABSOLUTE 0.25 0.10 - 1.30 K/uL 11/15/2024 7:35 AM CDT [facility] EOSINOPHIL ABSOLUTE 0.00 0.00 - 0.70 K/uL 11/15/2024 7:35 AM CDT [facility] BASOPHILS ABSOLUTE 0.01 0.00 - 0.20 K/uL 11/15/2024 7:35 AM CDT [facility] IMMATURE GRANULOCYTES ABSOLUTE 0.07(H) 0.00 - 0.03 K/uL 11/15/2024 7:35 AM CDT [facility] Blood 11/15/2024 4:00 AM CDT 11/15/2024 6:50 AM CDT us Darlin Stapleton MD HEMATOLOGY ORDERABLES Final Resu lt [facility] CLIA# [id number] [place] [address] * (ABNORMAL) BASIC METABOLIC PANEL (11/15/2024 4:00 AM CDT) SODIUM 135(L) 136 - 145 mmol/L 11/15/2024 8:14 AM CDT [facility] POTASSIUM 5.4(H) 3.4 - 5.1 mmol/L 11/15/2024 8:14 AM CDT [facility] LABORATORY [facility] CHLORIDE 104 98 - 107 mmol/L 11/15/2024 8:14 AM CDT [facility] LAB[facility]ORY [facility] CO2 22 22 - 29 mmol/L 11/15/2024 8:14 AM CDT [facility] CALCIUM 7.7(L) 8.6 - 10.4 mg/dL 11/15/2024 8:14 AM CDT [facility] BUN 35(H) 6 - 20 mg/dL 11/15/2024 8:14 AM CDT [facility] LAB[facility]ORY [facility] CREATININE 1.23(H) 0.67 - 1.17 mg/dL 11/15/2024 8:14 AM T [facility] [employer] [facility] Comment:The GFR result is no t clinically significant on patients <18 or >70 years of age. GLUCOSE 95 74 - 99 mg/dL 11/15/2024 8:14 AM CDT [facility] GFR 59 mL/min/1.7 3 sq meter 11/15/2024 8:14 AM T [facility] Comment:eGFR calculated with 2020 CKD-EPI equation. Vegetarian diet, extremely high or low muscle mass, and may affect results. Cystatin C with Glomerular Filtration Rate is a suitable alternative for these patients. ANION GAP 9 8 - 16 mmol/L 11/15/2024 8:14 AM T [facility] Blood 11/15/2024 4:00 AM CDT 11/15/2024 6:50 AM CDT Darlin Stapleton MD CHEMISTRY ORDERABLES Final Resul t [facility] [employer] [facility] CLIA# [id number] [address] [place] [address] documented in this encounter Visit Diagnoses Not [...] the following 6 months, and once thereafter ([id number], Chuyita auris surveillance screening). If negative screen 6 months, R/O C. auris status can be removed. 11/08/2024 12/19/2024 documented as of this encounter
--- OUTSIDE RECORDS SUMMARY | 2025-01-25 08:39 | XMS_ITS | Encounter Summary ---
Author Organization [facility] Address [address] [place] [address] Care Team Providers Care Retail Assistant Store Manager Name Role Phone Unavailable Primary Care Provider Unavailabl e Encounter Details Date Type Department Care Team (Late st Contact Info) Description 11/09/2024 Lab Requisition [facility] Laboratory Services [address] [place] [address] [place] [address] [place] [address] Social History Tobacco Use Types [...] - 37.1 seconds 11/09/2024 9:20 AM CDT [facility] Blood Collection / Unknown 11/09/2024 3:00 AM CDT 11/09/2024 9:19 AM CDT Polo Ochoa MD HEMATOLOGY ORDERABLES Final Res ult [facility] CLIA# [id number] [address] [place] [address] * (ABNORMAL) PROTIME-INR (11/09/2024 3:00 AM CDT) PROTIME 15.9(H) 11.5 - 14.7 Seconds 11/09/2024 9:20 AM CDT [facility] INR 1.3(H) 0.9 - 1.1 11/09/2024 9:20 AM CDT [facility] LABORATORY [facility] Blood Collection / Unknown 11/09/2024 3:00 AM CDT 11/09/2024 9:19 AM CDT Polo Ochoa MD HEMATOLOGY ORDERABLES Final Res ult Performing Organization Address City/[facility]/ZIP Co de Phone Number [facility] CLIA# [id number] [place] [address] * PREALBUMIN (11/09/2024 3:00 AM CDT) PREALBUMIN 21 20 - 40 mg/dL 11/09/2024 11:21 AM CDT [facility] Blood Collection / Unknown 11/09/2024 3:00 AM CDT 11/09/2024 9:19 AM CDT Polo Ochoa MD CHEMISTRY ORDERABLES Final Resu lt [facility] CLIA# [id number] [address] [place] [address] * (ABNORMAL) CBC WITH DIFFERENTIAL (11/09/2024 3:00 AM CDT) [facility] WBC 9.6 4.0 - 9.8 K/uL 11/09/2024 9:25 AM CDT [facility] RBC 4.11(L) 4.50 - 5.40 M/uL 11/09/2024 9:25 AM CDT [facility] HEMOGLOBIN 11.7(L) 13.6 - 16.5 g/dL 11/09/2024 9:25 AM CDT [facility] HEMATOCRIT 35.7(L) 40.0 - 48.0 % 11/09/2024 9:25 AM CDT [facility] MCV 86.9 82.0 - 99.0 fL 11/09/2024 9:25 AM CDT [facility] MCH 28.5 27.2 - 32.6 pg 11/09/2024 9:25 AM CDT [facility] MCHC 32.8 31.5 - 35.5 g/dL 11/09/2024 9:25 AM CDT [facility] RDW 14.0 11.5 - 14.5 % 11/09/2024 9:25 AM CDT [facility] RDW-STDEV 43.8 37.1 - 48.7 fL 11/09/2024 9:25 AM CDT [facility] PLATELETS 250 140 - 350 K/uL 11/09/2024 9:25 AM CDT [facility] MPV 10.0 9.3 - 12.4 fL 11/09/2024 9:25 AM CDT [facility] LABORATORY SERVICES [facility] NEUTROPHILS 89 % 11/09/2024 9:25 AM CDT [facility] LABORATORY SERVICES [facility] LYMPHOCYTES 6 % 11/09/2024 9:25 AM CDT [facility] LABORATORY SERVICES [facility] MONOCYTES 3 % 11/09/2024 9:25 AM CDT [facility]ORATORY SERVICES [facility] EOSINOPHILS 0 % 11/09/2024 9:25 AM CDT [facility] BASOPHILS 0 % 11/09/2024 9:25 AM CDT [facility] IMMATURE GRANULOCYTES 2 % 11/09/2024 9:25 AM CDT [facility] Comment:IG (Immature Granulo cyte) count includes Metamyelocytes, Myelocytes, and Promyelocytes NEUTROPHIL ABSOLUTE 8.50(H) 1.90 - 7.00 K/uL 11/09/2024 9:25 AM CDT [facility] LYMPHOCYTE ABSOLUTE 0.58(L) 0.70 - 4.50 K/uL 11/09/2024 9:25 AM CDT [facility] MONOCYTE ABSOLUTE 0.32 0.10 - 1.30 K/uL 11/09/2024 9:25 AM CDT [facility] EOSINOPHIL ABSOLUTE 0.01 0.00 - 0.70 K/uL 11/09/2024 9:25 AM CDT [facility] BASOPHILS ABSOLUTE 0.02 0.00 - 0.20 K/uL 11/09/2024 9:25 AM CDT [facility] IMMATURE GRANULOCYTES ABSOLUTE 0.14(H) 0.00 - 0.03 K/uL 11/09/2024 9:25 AM CDT [facility] Blood Collection / Unknown 11/09/2024 3:00 AM CDT 11/09/2024 9:19 AM CDT us Polo Ochoa MD HEMATOLOGY ORDERABLES Final Res ult [facility] CLIA# [id number] [place] [address] * (ABNORMAL) COMPREHENSIVE METABOLIC PANEL (11/09/2024 3:00 AM CDT) SODIUM 140 136 - 145 mmol/L 11/09/2024 9:21 AM CDT [facility] POTASSIUM 4.5 3.4 - 5.1 mmol/L 11/09/2024 9:21 AM [facility] CHLORIDE 105 98 - 107 mmol/L 11/09/2024 9:21 AM [facility] CO2 26 22 - 29 mmol/L 11/09/2024 9:21 AM [facility] CALCIUM 8.5(L) 8.6 - 10.4 mg/dL 11/09/2024 9:21 AM [facility] BUN 49(H) 6 - 20 mg/dL 11/09/2024 9:21 AM [facility] CREATININE 1.20(H) 0.67 - 1.17 mg/dL 11/09/2024 9:21 AM [facility] Comment:The GFR result is no t clinically significant on patients <18 or >70 years of age. GLUCOSE 87 74 - 99 mg/dL 11/09/2024 9:21 AM [facility] TOTAL PROTEIN 5.4(L) 6.3 - 8.7 g/dL 11/09/2024 9:21 AM [facility] ALBUMIN 3.0(L) 3.5 - 5.2 g/dL 11/09/2024 9:21 AM [facility] BILIRUBIN TOTAL 0.5 0.0 - 1.1 mg/dL 11/09/2024 9:21 AM [facility] ALKALINE PHOSPHATASE 100 40 - 150 U/L 11/09/2024 9:21 AM [facility] AST 13 0 - 41 U/L 11/09/2024 9:21 AM [facility] ALT 44(H) 0 - 41 U/L 11/09/2024 9:21 AM [facility] GFR >60 mL/min/1.7 3 sq meter 11/09/2024 9:21 AM [facility] Comment:eGFR calculated with 2020 CKD-EPI equation. Vegetarian diet, extremely high or low muscle mass, and may affect results. Cystatin C with Glomerular Filtration Rate is a suitable alternative for these patients. ANION GAP 9 8 - 16 mmol/L 11/09/2024 9:21 AM CDT [facility] Blood Collection / Unknown 11/09/2024 3:00 AM CDT 11/09/2024 9:19 AM CDT Polo Ochoa MD CHEMISTRY ORDERABLES Final Resu lt [facility] CLIA# [id number] [place] [address] documented in this encounter Visit Diagnoses Not [...] the following 6 months, and once thereafter ([id number], [place] auris surveillance screening). If negative screen 6 months, R/O C. auris status can be removed. 11/08/2024 12/19/2024 documented as of this encounter
--- OUTSIDE RECORDS SUMMARY | 2025-01-25 08:39 | XMS_ITS | Patient Health Record ---
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 Problem Protein calorie malnutrition (204648574) Unspecified protein-calorie malnutrition (E46) Active confirmed Problem Insomnia (155793038) Insomnia, unspecified (G47.00) Active confirmed Problem Atrial fibrillation (07682755) Unspecified atrial fibrillation (I48.91) Active confirmed Problem Cardiomegaly (2684089) Cardiomegaly (I51.7) Active confirmed Problem Allergic rhinitis (78050527) Allergic rhinitis, unspecified (J30.9) Active confirmed Problem 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 Problem 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) Interstitial pulmonary disease, unspecified (J84.9) Active confirmed Problem Gastro-esophageal reflux disease without esophagitis (816464821) Gastro-esophagea l reflux disease without esophagitis (K21.9) Active confirmed Problem Constipation (00978132) Constipation, unspecified (K59.00) Active confirmed Problem Pressure ulcer of unspecified part of back, stage 3 (L89.103) Active confirmed Problem Oropharyngeal dysphagia (96575591) Dysphagia, oropharyngeal phase (R13.12) Active confirmed Problem Abnormal gait (14521104) Other abnormalities of gait and mobility (R26.89) Active confirmed Problem 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) Cognitive communication deficit (R41.841) Active confirmed Problem Pressure injury of sacral region of back (disorder) (601780810) Pressure injury of skin of sacral region, unspecified injury stage (L89.159) Active confirmed Problem Decubitus ulcer of coccyx, 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 Problem Pulmonary fibrosis (94984593) Pulmonary fibrosis (J84.10) Active confirmed Vital Signs Heart Rate 70 /min 01/19/2025 Temperature 98.5 degrees Fahrenheit 01/19/2025 Respiratory Rate 18 /min 01/19/2025 Oximetry 95 % 01/19/2025 Blood pressure diastolic 58 mm Hg 01/19/2025 Weight-kg 79.74 kg 12/23/2024 Blood pressure systolic 122 mm Hg 01/19/2025 Weight 175.8 lbs 12/23/2024 Encounters Encounter Location Date Provider Diagnosis [address] [address] 01/24/2025 Yasmeen Matta [address] [address] 12/23/2024 MARIAMA ANDERSON [facility] [address] [place] [address] 12/28/2024 Yasmeen Matta Interstitial pulmona ry disease, unspecified J84.9 ; Unspecified atrial fibrillation I48.91 and Physical deconditioning R53.[address] [place] [address] 01/06/2025 Yasmeen Paxton Interstitial pulmona ry disease, unspecified J84.9 ; Unspecified atrial fibrillation I48.91 and Physical deconditioning R53.[address] [address] 01/10/2025 Yasmeen Paxton Interstitial pulmona ry disease, unspecified J84.9 ; Unspecified atrial fibrillation I48.91 ; Physical deconditioning R53.81 and Decubitus ulcer of coccyx, stage III L89.[address] [address] 01/12/2025 Yasmeen Paxton Interstitial pulmona ry disease, unspecified J84.9 ; Unspecified atrial fibrillation I48.91 ; Physical deconditioning R53.81 and Decubitus ulcer of coccyx, stage III L89.[address] [address] 01/17/2025 Yasmeen Paxton Interstitial pulmona ry disease, unspecified J84.9 ; Unspecified atrial fibrillation I48.91 ; Physical deconditioning R53.81 and Decubitus ulcer of coccyx, stage III L89.[address] [address] 01/19/2025 Yasmeen Paxton Interstitial pulmona ry disease, unspecified J84.9 ; Unspecified atrial fibrillation I48.91 ; Physical deconditioning R53.81 ; Decubitus ulcer of coccyx, stage III L89.153 ; Tremor R25.1 and Cough, unspecified R05.[address] [address] 12/19/2024 Yasmeen Matta [address] [address] 12/20/2024 Yasmeen Matta [address] [address] 12/21/[address] [address] 12/22/[address] [address] 12/28/[address] [address] 01/04/2025 [place] [address] [address] 01/06/2025 MARIAMA ANDERSON [place] [address] [address] 01/10/2025 Yasmeen Matta [place] [address] [address] 01/13/2025 MARIAMA ANDERSON [place] [address] [address] 01/16/2025 MARIAMA ANDERSON [address] [address] 01/18/2025 Yasmeen Matta [address] [address] 01/24/2025 MARIAMA ANDERSON [address] [address] 01/24/2025 Yasmeen Matta Assessments Encounter Date Diagnosis [...] with minimal exertion. Patient does have a remedial teacher appointment on 01/04/2025. 01/06/2025 Interstitial pulmonary disease, [...] a follow-up appointment on 01/04 with his remedial teacher, order was given to stop the albuterol [...] a follow-up appointment on 01/04 with his remedial teacher, order was given to stop the albuterol [...] a follow-up appointment on 01/04 with his remedial teacher, order was given to stop the albuterol [...] a follow-up appointment on 01/04 with his remedial teacher, order was given to stop the albuterol [...] a follow-up appointment on 01/04 with his remedial teacher, order was given to stop the albuterol treatments due to them not helping the patient and it makes him very jittery and shaky. Unsure of any other orders at this time. 01/10/2025 Unspecified atrial fibrillation (ICD-10 - I48.91) Rate controlled. Managed well on current medications. Continue current treatment plan and monitoring. 01/12/2025 Unspecified atrial fibrillation (ICD-10 - I48.91) Rate controlled. Managed well on current medications. Continue current treatment plan and monitoring. 12/28/2024 Physical deconditioning (ICD-10 - R53.81) Patient [...] sitting with other residents and being social. 01/17/2025 Unspecified atrial fibrillation (ICD-10 - I48.91) Rate controlled. Managed well on current medications. Continue current treatment plan and monitoring. 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 They are just using barrier cream and foam dressings for protection at this time. 01/10/2025 Physical deconditioning (ICD-10 - R53.81) Patient [...] stays in bed due to the pain. 01/06/2025 Physical deconditioning (ICD-10 - R53.81) Patient [...] up in the chair throughout the day. 01/12/2025 Physical deconditioning (ICD-10 - R53.81) Patient [...] due to the bed sores he has. 01/17/2025 Physical deconditioning (ICD-10 - R53.81) Patient is working with PT and OT for strengthening and mobility. He reports therapy as going good. He is ambulatory, but pushes a wheelchair to carry his oxygen with him. Staff report he is getting out of his room more, he is going outside and sitting with other residents and being social. 01/17/2025 Decubitus ulcer of coccyx, stage III (ICD-10 - L89.153) Spoke with the wound nurse today and she reports that all three of his areas on his buttocks and coccyx areas have healed. They are just using barrier cream and foam dressings for protection at this time. 01/12/2025 Decubitus ulcer of coccyx, stage III (ICD-10 - L89.153) Patient has three stage 3 wounds to his buttocks and coccyx area. He is being seen by SWMaria G weekly as well as getting his dressings changed daily by the nursing staff. Patient reports he stays in bed due to the pain. Patient reports that the dressing is off and has not been on for a couple of days. Wound nurse to see patient today to assess and put new dressings on. 01/19/2025 Tremor (ICD-10 - R25.1) Patient reports [...] have an appointment tomorrow 01/20/2025 with a parts facilitator. Encouraged him to also let them know just to see if they have any suggestions at this time. 01/19/2025 Cough, unspecified (ICD-10 - R05.9) Patient [...] for Flonase one spray, both nares b.i.d. 12/28/2024 Other Continue curren t treatment plan.Staff [...] up in one week unless necessary sooner. 01/12/2025 Other Continue curren t treatment plan.Staff [...] Name:Yasmeen Matta , 01/26/2025 06:45:00 AM, [address] [facility], [place], [address], Insurance Providers Payer Name Payer Address Payer Phone Subscriber Number Group Number Insured Name Patient Relationship to Insured Coverage Start Date Coverage End Date [employer] of [place] [address] [place], [place] [id number] [phone] [id number] Zack Fofana Self - patient is the [...]
--- OUTSIDE RECORDS SUMMARY | 2025-01-25 08:39 | XMS_ITS | Clinical Summary ---
Author Organization [facility] Address [address] [place] [address] Phone Care Team Providers Care Bulker Name Role Phone Unavailable Primary Care Provider Unavailabl e Encounters Date Type Department Care Team Description 01/24/2025 External Device Data [facility] ABSTRACTION Provider, Abstract 01/24/2025 External Device Data [facility] ABSTRACTION Provider, Abstract 01/10/2025 External Device Data [facility] ABSTRACTION Provider, Abstract 12/27/2024 External Device Data [facility] ABSTRACTION Provider, Abstract 12/27/2024 External Device Data [facility] ABSTRACTION Provider, Abstract 12/13/2024 External Device Data [facility] ABSTRACTION Provider, Abstract 11/30/2024 12:54 PM CDT - 11/30/2024 11:59 PM CDT Hospital Encounter [facility] [place] [address] [place] [address] Lloyd Mercer MD Ada, Sreenu, MD Discharge Disposition: Home or Self Care 11/30/2024 Lab Requisition [facility] [address] [place] [phone] Darlin Stapleton MD 11/29/2024 Transcribe Orders [facility] Radiology [address] [place] [address] Lloyd Mercer MD Pulmonary fibrosis (CMS/HCC) (Primary Dx) 11/27/2024 Lab Requisition [facility] [address] [place] [phone] Darlin Stapleton MD 11/24/2024 Lab Requisition [facility] [address] [place] [address] Darlin Stapleton MD 11/21/2024 Lab Requisition [facility] [address] [place] [address] Polo Ochoa MD 11/18/2024 Lab Requisition [facility] [address] [place] [address] Darlin Stapleton MD 11/16/2024 Lab Requisition [facility] [address] [place] [address] Darlin Stapleton MD 11/15/2024 External Device Data [facility] ABSTRACTION Provider, Abstract 11/15/2024 External Device Data STL ABSTRACTION Provider, Abstract 11/15/2024 External Device Data [facility] ABSTRACTION Provider, Abstract 11/15/2024 Lab Requisition [facility] [address] [place] [address] Darlin Stapleton MD 11/12/2024 Lab Requisition [facility] [address] [place] [address] Darlin Stapleton MD 11/09/2024 9:05 AM CDT - 11/09/2024 11:59 PM CDT [facility] [address] [place] [address] Darlin Stapleton MD Discharge Disposition: Home or Self Care 11/09/2024 Lab Requisition [facility] [address] [place] [address] Polo Ochoa MD from Last 3 Months [...] (#1) 2024 , 01/28/2023, 01/18/2021 COVID-19 Vaccine (3 - season) 01/09/202508/2020, 08/14/2020 DIABETES ANNUAL RETINAL EXAM [...] consistent with severe pulmonary fibrosis. DICTATION LOCATION: [address] 11/30/2024 1:[address] CHEST [...] with severe pulmonary fibrosis. DICTATION LOCATION: Location [address] [place] [address] us [address] Mercer MD CT ORDERABLES Final Result * (ABNORMAL) CBC WITH DIFFERENTIAL (11/30/2024 3:10 AM CDT) Only the most recent of8 resultswithin the time period is included. WBC 5.0 4.0 - 9.8 K/uL 11/30/2024 7:28 AM CDT [facility] RBC 4.08(L) 4.50 - 5.40 M/uL 11/30/2024 7:28 AM CDT [facility] HEMOGLOBIN 11.7(L) 13.6 - 16.5 g/dL 11/30/2024 7:28 AM CDT [facility] HEMATOCRIT 33.8(L) 40.0 - 48.0 % 11/30/2024 7:28 AM CDT [facility] MCV 82.8 82.0 - 99.0 fL 11/30/2024 7:28 AM CDT [facility] MCH 28.7 27.2 - 32.6 pg 11/30/2024 7:28 AM CDT [facility] MCHC 34.6 31.5 - 35.5 g/dL 11/30/2024 7:28 AM CDT [facility] RDW 15.2(H) 11.5 - 14.5 % 11/30/2024 7:28 AM CDT [facility] RDW-STDEV 45.5 37.1 - 48.7 fL 11/30/2024 7:28 AM CDT [facility] PLATELETS 121(L) 140 - 350 K/uL 11/30/2024 7:28 AM CDT [facility] MPV 9.8 9.3 - 12.4 fL 11/30/2024 7:28 AM CDT [facility] NEUTROPHILS 56 % 11/30/2024 7:28 AM CDT [facility] LYMPHOCYTES 36 % 11/30/2024 7:28 AM CDT [facility] MONOCYTES 4 % 11/30/2024 7:28 AM CDT [facility] EOSINOPHILS 1 % 11/30/2024 7:28 AM CDT [facility] BASOPHILS 0 % 11/30/2024 7:28 AM CDT [facility] IMMATURE GRANULOCYTES 3 % 11/30/2024 7:28 AM T [facility] Comment:IG (Immature Granulo cyte) count includes Metamyelocytes, Myelocytes, and Promyelocytes NEUTROPHIL ABSOLUTE 2.83 1.90 - 7.00 K/uL 11/30/2024 7:28 AM CDT [facility] LYMPHOCYTE ABSOLUTE 1.80 0.70 - 4.50 K/uL 11/30/2024 7:28 AM CDT [facility] MONOCYTE ABSOLUTE 0.19 0.10 - 1.30 K/uL 11/30/2024 7:28 AM CDT [facility] EOSINOPHIL ABSOLUTE 0.05 0.00 - 0.70 K/uL 11/30/2024 7:28 AM CDT [facility] BASOPHILS ABSOLUTE 0.02 0.00 - 0.20 K/uL 11/30/2024 7:28 AM CDT [facility] IMMATURE GRANULOCYTES ABSOLUTE 0.13(H) 0.00 - 0.03 K/uL 11/30/2024 7:28 AM CDT [facility] Blood Collection / Unknown 11/30/2024 3:10 AM CDT 11/30/2024 7:06 AM CDT us Darlin Stapleton MD HEMATOLOGY ORDERABLES Final Resu lt [facility] CLIA# [id number] [place] [address] * (ABNORMAL) BASIC METABOLIC PANEL (11/30/2024 3:10 AM CDT) Only the most recent of7 resultswithin the time period is included. SODIUM 128(L) 136 - 145 mmol/L 11/30/2024 7:51 AM T [facility] POTASSIUM 4.6 3.4 - 5.1 mmol/L 11/30/2024 7:51 AM T [facility] CHLORIDE 96(L) 98 - 107 mmol/L 11/30/2024 7:[address] [facility] CO2 20(L) 22 - 29 mmol/L 11/30/2024 7:[address] [facility] CALCIUM 7.6(L) 8.6 - 10.4 mg/dL 11/30/2024 7:[address] [facility] BUN 37(H) 6 - 20 mg/dL 11/30/2024 7:51 AM T [facility] CREATININE 1.46(H) 0.67 - 1.17 mg/dL 11/30/2024 7:[address] [facility] Comment:The GFR result is no t clinically significant on patients <18 or >70 years of age. GLUCOSE 126(H) 74 - 99 mg/dL 11/30/2024 7:51 AM T [facility] GFR 48 mL/min/1.7 3 sq meter 11/30/2024 7:[address] [facility] Comment:eGFR calculated with 2020 CKD-EPI equation. Vegetarian diet, extremely high or low muscle mass, and may affect results. Cystatin C with Glomerular Filtration Rate is a suitable alternative for these patients. ANION GAP 12 8 - 16 mmol/L 11/30/2024 7:51 AM CDT [facility] Blood Collection / Unknown 11/30/2024 3:10 AM CDT 11/30/2024 7:06 AM CDT us Darlin Stapleton MD CHEMISTRY ORDERABLES Final Resul t [facility] CLIA# [id number] [address] [place] [address] * (ABNORMAL) RENAL FUNCTION PANEL (11/16/2024 3:20 AM CDT) SODIUM 137 136 - 145 mmol/L 11/16/2024 8:03 AM CDT [facility] POTASSIUM 4.8 3.4 - 5.1 mmol/L 11/16/2024 8:03 AM T [facility] CHLORIDE 105 98 - 107 mmol/L 11/16/2024 8:03 AM T [facility] CO2 23 22 - 29 mmol/L 11/16/2024 8:03 AM T [facility] CALCIUM 8.3(L) 8.6 - 10.4 mg/dL 11/16/2024 8:03 AM T [facility] BUN 33(H) 6 - 20 mg/dL 11/16/2024 8:03 AM T [facility] CREATININE 1.12 0.67 - 1.17 mg/dL 11/16/2024 8:03 AM T [facility] Comment:The GFR result is no t clinically significant on patients <18 or >70 years of age. GLUCOSE 53(LL) 74 - 99 mg/dL 11/16/2024 8:03 AM CDT [facility] ALBUMIN 2.9(L) 3.5 - 5.2 g/dL 11/16/2024 8:03 AM CDT [facility] PHOSPHORUS 3.8 2.5 - 4.5 mg/dL 11/16/2024 8:03 AM CDT [facility] GFR >60 mL/min/1.7 3 sq meter 11/16/2024 8:03 AM CDT [facility] Comment:eGFR calculated with 2020 CKD-EPI equation. Vegetarian diet, extremely high or low muscle mass, and may affect results. Cystatin C with Glomerular Filtration Rate is a suitable alternative for these patients. ANION GAP 9 8 - 16 mmol/L 11/16/2024 8:03 AM CDT [facility] Blood Collection / Unknown 11/16/2024 3:20 AM CDT 11/16/2024 7:04 AM CDT Darlin Stapleton MD CHEMISTRY ORDERABLES Final Resul t [facility] CLIA# [id number] [place] [address] * PTT (11/09/2024 3:00 AM CDT) PTT 30.2 23.1 - 37.1 seconds 11/09/2024 9:20 AM CDT [facility] Blood Collection / Unknown 11/09/2024 3:00 AM CDT 11/09/2024 9:19 AM CDT us Polo Ochoa MD HEMATOLOGY ORDERABLES Final Res ult [facility] CLIA# [id number] [place] [address] * (ABNORMAL) PROTIME-INR (11/09/2024 3:00 AM CDT) PROTIME 15.9(H) 11.5 - 14.7 Seconds 11/09/2024 9:20 AM CDT [facility] INR 1.3(H) 0.9 - 1.1 11/09/2024 9:20 AM CDT [facility] Blood Collection / Unknown 11/09/2024 3:00 AM CDT 11/09/2024 9:19 AM CDT Polo Ochoa MD HEMATOLOGY ORDERABLES Final Res ult [facility] CLIA# [id number] [address] [address] * PREALBUMIN (11/09/2024 3:00 AM CDT) PREALBUMIN 21 20 - 40 mg/dL 11/09/2024 11:21 AM CDT [facility] Blood Collection / Unknown 11/09/2024 3:00 AM CDT 11/09/2024 9:19 AM CDT Polo Ochoa MD CHEMISTRY ORDERABLES Final Resu lt Performing Organization Address City/[facility]/ZIP Co de Phone Number [facility] CLIA# [id number] [address] [place] [address] * (ABNORMAL) COMPREHENSIVE METABOLIC PANEL (11/09/2024 3:00 AM CDT) SODIUM 140 136 - 145 mmol/L 11/09/2024 9:21 AM CDT [facility] POTASSIUM 4.5 3.4 - 5.1 mmol/L 11/09/2024 9:21 AM CDT [facility] CHLORIDE 105 98 - 107 mmol/L 11/09/2024 9:21 AM CDT [facility] CO2 26 22 - 29 mmol/L 11/09/2024 9:21 AM CDT [facility] CALCIUM 8.5(L) 8.6 - 10.4 mg/dL 11/09/2024 9:[address] [facility] BUN 49(H) 6 - 20 mg/dL 11/09/2024 9:[address] [facility] CREATININE 1.20(H) 0.67 - 1.17 mg/dL 11/09/2024 9:[address] [facility] Comment:The GFR result is no t clinically significant on patients <18 or >70 years of age. GLUCOSE 87 74 - 99 mg/dL 11/09/2024 9:[address] [facility] TOTAL PROTEIN 5.4(L) 6.3 - 8.7 g/dL 11/09/2024 9:[address] [facility] ALBUMIN 3.0(L) 3.5 - 5.2 g/dL 11/09/2024 9:[address] [facility] BILIRUBIN TOTAL 0.5 0.0 - 1.1 mg/dL 11/09/2024 9:[address] [facility] ALKALINE PHOSPHATASE 100 40 - 150 U/L 11/09/2024 9:[address] [facility] AST 13 0 - 41 U/L 11/09/2024 9:[address] [facility] ALT 44(H) 0 - 41 U/L 11/09/2024 9:[address] [facility] GFR >60 mL/min/1.7 3 sq meter 11/09/2024 9:[address] [facility] Comment:eGFR calculated with 2020 CKD-EPI equation. Vegetarian diet, extremely high or low muscle mass, and may affect results. Cystatin C with Glomerular Filtration Rate is a suitable alternative for these patients. ANION GAP 9 8 - 16 mmol/L 11/09/2024 9:[address] 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 Discharged to extremely high risk facility. Will need to remain on Enhanced isolation (while hospitalized). Patient is required to be tested at every ED visit/ admission for the following 6 months, and once thereafter ([id number], Chuyita auris surveillance screening). If negative screen 6 months, R/O C. auris status can be removed. 11/08/2024 12/19/[address] [place] ATTN CLAIMS [place] [id number] [place] [address] MEDIC[employer]
--- OUTSIDE RECORDS SUMMARY | 2025-01-25 08:39 | XMS_ITS | Encounter Summary ---
Author Organization [facility] Address [address] [place] [address] Phone Care Team Providers Care Easement Man Name Role Phone Manuel Ravi MD Primary Care Provider [phone] Abraham Lazaro MD Unavailable Kathleen Aviles MATERIAL ANALYST, CLEARING INSPECTOR Primary Care Provider [phone] Reason for Visit * Reason Comments Medication Refill Encounter Details Date Type Department Care Team (Late st Contact Info) Description 01/21/2021 Refill [facility] - Primary Care - [place] [address] [place] [address] Manuel Ravi MD [address] [place], [place] [id number] Medication Refill Social History Tobacco Use Types [...] Description 02/03/2025 1:00 PM CDT Office Visit [facility] - [place] Care - [place] [address] [place] [address] Kathleen Aviles, MATERIAL ANALYST, CLEARING INSPECTOR [address] [place] [address] documented as of this encounter Visit Diagnoses [...] Total Score: 0 07/01/19 20 10:00 AM METAL CUT OFF SAW TENDER documented as of this encounter Care Teams Easement Man Relationship Specialty Start Date End Date Manuel Ravi MD [address] [place] [address] PCP - General Internal Medicine 05/15/18 01/31/24 Kathleen Aviles, MATERIAL ANALYST, CLEARING INSPECTOR [address] [place] [address] PCP - General Certified Nurse Practitioner 02/01/24 Abraham Lazaro MD [address] [address] Consulting Physician Endocrinology 07/19/21 documented as of this encounter
--- OUTSIDE RECORDS SUMMARY | 2025-01-25 08:39 | XMS_ITS | Encounter Summary ---
Author Organization [facility] Address [address] [place] [address] Care Team Providers Care Trailer Body Assembler Name Role Phone Unavailable Primary Care Provider Unavailabl e Encounter Details Date Type Department Care Team (Late st Contact Info) Description 11/12/2024 Lab Requisition [facility] Laboratory Services [address] [place] [address] [place] [address] [place] [address] Social History Tobacco Use Types [...] - 9.8 K/uL 11/12/2024 7:42 AM CDT [facility] LABORATORY SERVICES - [facility] RBC 3.93(L) 4.50 - 5.40 M/uL 11/12/2024 7:42 AM CDT [facility] LABORATORY [facility] - [facility] HEMOGLOBIN 11.1(L) 13.6 - 16.5 g/dL 11/12/2024 7:42 AM CDT [facility] LABORATORY [facility] HEMATOCRIT 34.2(L) 40.0 - 48.0 % 11/12/2024 7:42 AM CDT [facility] LABORATORY [facility] MCV 87.0 82.0 - 99.0 fL 11/12/2024 7:42 AM CDT [facility] LABOR[facility]ORY [facility] MCH 28.2 27.2 - 32.6 pg 11/12/2024 7:42 AM CDT [facility] LABOR[facility] MCHC 32.5 31.5 - 35.5 g/dL 11/12/2024 7:42 AM CDT [facility] RDW 14.2 11.5 - 14.5 % 11/12/2024 7:42 AM CDT [facility] RDW-STDEV 45.0 37.1 - 48.7 fL 11/12/2024 7:42 AM CDT [facility] LAB[facility] PLATELETS 186 140 - 350 K/uL 11/12/2024 7:42 AM CDT [facility] MPV 10.1 9.3 - 12.4 fL 11/12/2024 7:42 AM CDT [facility] NEUTROPHILS 89 % 11/12/2024 7:42 AM CDT [facility] LYMPHOCYTES 5 % 11/12/2024 7:42 AM CDT [facility] MONOCYTES 4 % 11/12/2024 7:42 AM CDT [facility] EOSINOPHILS 1 % 11/12/2024 7:42 AM CDT [facility] BASOPHILS 0 % 11/12/2024 7:42 AM CDT [facility] IMMATURE GRANULOCYTES 1 % 11/12/2024 7:42 AM CDT [facility] LABORATORY SERVICES [facility] Comment:IG (Immature Granulo cyte) count includes Metamyelocytes, Myelocytes, and Promyelocytes NEUTROPHIL ABSOLUTE 7.77(H) 1.90 - 7.00 K/uL 11/12/2024 7:42 AM CDT [facility] LABOR[facility] LYMPHOCYTE ABSOLUTE 0.44(L) 0.70 - 4.50 K/uL 11/12/2024 7:42 AM CDT [facility] LABORATORY SERVICES [facility] MONOCYTE ABSOLUTE 0.38 0.10 - 1.30 K/uL 11/12/2024 7:42 AM CDT [facility] EOSINOPHIL ABSOLUTE 0.05 0.00 - 0.70 K/uL 11/12/2024 7:42 AM CDT [facility] BASOPHILS ABSOLUTE 0.01 0.00 - 0.20 K/uL 11/12/2024 7:42 AM CDT [facility] LAB[facility] IMMATURE GRANULOCYTES ABSOLUTE 0.12(H) 0.00 - 0.03 K/uL 11/12/2024 7:42 AM CDT [facility] Blood Collection / Unknown 11/12/2024 4:00 AM CDT 11/12/2024 7:05 AM CDT us Darlin Stapleton MD HEMATOLOGY ORDERABLES Final Resu lt [facility] CLIA# [id number] [place] [address] * (ABNORMAL) BASIC METABOLIC PANEL (11/12/2024 4:00 AM CDT) SODIUM 141 136 - 145 mmol/L 11/12/2024 8:03 AM T [facility] POTASSIUM 5.0 3.4 - 5.1 mmol/L 11/12/2024 8:03 AM T [facility] LABORATORY [facility] CHLORIDE 106 98 - 107 mmol/L 11/12/2024 8:03 AM CDT [facility] CO2 23 22 - 29 mmol/L 11/12/2024 8:03 AM T [facility] CALCIUM 8.1(L) 8.6 - 10.4 mg/dL 11/12/2024 8:03 AM T [facility] BUN 37(H) 6 - 20 mg/dL 11/12/2024 8:03 AM CDT [facility] CREATININE 1.17 0.67 - 1.17 mg/dL 11/12/2024 8:03 AM T [facility] LAB[facility] Comment:The GFR result is no t clinically significant on patients <18 or >70 years of age. GLUCOSE 62(L) 74 - 99 mg/dL 11/12/2024 8:03 AM T [facility] GFR >60 mL/min/1.7 3 sq meter 11/12/2024 8:03 AM T [facility] Comment:eGFR calculated with 2020 CKD-EPI equation. Vegetarian diet, extremely high or low muscle mass, and may affect results. Cystatin C with Glomerular Filtration Rate is a suitable alternative for these patients. ANION GAP 12 8 - 16 mmol/L 11/12/2024 8:03 AM T [facility] Blood Collection / Unknown 11/12/2024 4:00 AM CDT 11/12/2024 7:05 AM CDT Darlin Stapleton MD CHEMISTRY ORDERABLES Final Resul t [facility] CLIA# [id number] [place] [address] documented in this encounter Visit Diagnoses Not [...] the following 6 months, and once thereafter ([id number], Chuyita auris surveillance screening). If negative screen 6 months, R/O C. auris status can be removed. 11/08/2024 12/19/2024 documented as of this encounter
--- OUTSIDE RECORDS SUMMARY | 2025-01-25 08:39 | XMS_ITS | Encounter Summary ---
Author Organization [facility] Address [address] [place] [address] Care Team Providers Care Toll Test Worker Name Role Phone Unavailable Primary Care Provider Unavailabl e Encounter Details Date Type Department Care Team (Late st Contact Info) Description 11/27/2024 Lab Requisition [facility] Laboratory Services [address] [place] [address] [place] [address] [place] [address] Social History Tobacco Use Types [...] - 145 mmol/L 11/27/2024 7:56 AM CDT [facility] LABORATORY SERVICES - [facility] POTASSIUM 4.2 3.4 - 5.1 mmol/L 11/27/2024 7:56 AM CDT [facility] LABORATORY SERVICES - [facility] CHLORIDE 96(L) 98 - 107 mmol/L 11/27/2024 7:56 AM CDT [facility] LABORATORY SERVICES - [facility] CO2 24 22 - 29 mmol/L 11/27/2024 7:56 AM T [facility] [email or web address]] CALCIUM 7.5(L) 8.6 - 10.4 mg/dL 11/27/2024 7:56 AM T [facility] [[email or web address]] BUN 28(H) 6 - 20 mg/dL 11/27/2024 7:56 AM T [facility] [email or web address]] CREATININE 1.20(H) 0.67 - 1.17 mg/dL 11/27/2024 7:56 AM T [facility] [[email or web address]] Comment:The GFR result is no t clinically significant on patients <18 or >70 years of age. GLUCOSE 181(H) 74 - 99 mg/dL 11/27/2024 7:56 AM T [facility] [[email or web address]] GFR >60 mL/min/1.7 3 sq meter 11/27/2024 7:56 AM T [facility] [[email or web address]] Comment:eGFR calculated with 2020 CKD-EPI equation. Vegetarian diet, extremely high or low muscle mass, and may affect results. Cystatin C with Glomerular Filtration Rate is a suitable alternative for these patients. ANION GAP 7(L) 8 - 16 mmol/L 11/27/2024 7:56 AM T [facility] [email or web address]] Blood Collection / Unknown 11/27/2024 4:00 AM CDT 11/27/2024 7:08 AM CDT us Darlin Stapleton MD CHEMISTRY ORDERABLES Final Resul t [facility] [[email or web address]] CLIA# [id number] [place] [address] * (ABNORMAL) CBC WITH DIFFERENTIAL (11/27/2024 4:00 AM CDT) WBC 4.0 4.0 - 9.8 K/uL 11/27/2024 8:07 AM CDT [facility] [email or web address]] RBC 3.93(L) 4.50 - 5.40 M/uL 11/27/2024 8:07 AM [facility] HEMOGLOBIN 11.4(L) 13.6 - 16.5 g/dL 11/27/2024 8:07 AM [facility] HEMATOCRIT 32.7(L) 40.0 - 48.0 % 11/27/2024 8:07 AM [facility] LABORATORY [facility] MCV 83.2 82.0 - 99.0 fL 11/27/2024 8:07 AM [facility] MCH 29.0 27.2 - 32.6 pg 11/27/2024 8:07 AM [facility] LABORATORY [facility] MCHC 34.9 31.5 - 35.5 g/dL 11/27/2024 8:07 AM [facility] RDW 14.9(H) 11.5 - 14.5 % 11/27/2024 8:07 AM [facility] RDW-STDEV 45.1 37.1 - 48.7 fL 11/27/2024 8:07 AM [facility]ORATORY [facility] PLATELETS 87(L) 140 - 350 K/uL 11/27/2024 8:07 AM [facility] MPV 10.1 9.3 - 12.4 fL 11/27/2024 8:07 AM [facility] NEUTROPHILS 64 % 11/27/2024 8:07 AM [facility]ORATORY [facility] LYMPHOCYTES 27 % 11/27/2024 8:07 [facility] MONOCYTES 6 % 11/27/2024 8:07 AM CDT [facility] LABORATORY [facility] EOSINOPHILS 2 % 11/27/2024 8:07 [facility] BASOPHILS 0 % 11/27/2024 8:07 AM CDT [facility] LABORATORY [facility] IMMATURE GRANULOCYTES 1 % 11/27/2024 8:07 AM [facility] LABORATORY [facility] Comment:IG (Immature Granulo cyte) count includes Metamyelocytes, Myelocytes, and Promyelocytes NEUTROPHIL ABSOLUTE 2.54 1.90 - 7.00 K/uL 11/27/2024 8:07 AM CDT [facility] LABORATORY [facility] LYMPHOCYTE ABSOLUTE 1.07 0.70 - 4.50 K/uL 11/27/2024 8:07 AM CDT [facility] LABORATORY SERVICES - [facility] MONOCYTE ABSOLUTE 0.22 0.10 - 1.30 K/uL 11/27/2024 8:07 AM CDT [facility] LABORATORY [facility] - [facility] EOSINOPHIL ABSOLUTE 0.07 0.00 - 0.70 K/uL 11/27/2024 8:07 AM CDT [facility] LABORATORY [facility] - [facility] BASOPHILS ABSOLUTE 0.01 0.00 - 0.20 K/uL 11/27/2024 8:07 AM CDT [facility] LABORATORY [facility] - [facility] IMMATURE GRANULOCYTES ABSOLUTE 0.05(H) 0.00 - 0.03 K/uL 11/27/2024 8:07 AM CDT [facility] LABORATORY [facility] Blood Collection / Unknown 11/27/2024 4:00 AM CDT 11/27/2024 7:08 AM CDT Darlin Stapleton MD HEMATOLOGY ORDERABLES Final Resu lt [facility] [[email or web address]] CLIA# [id number] [place] [address] documented in this encounter Visit Diagnoses Not [...] the following 6 months, and once thereafter ([id number], Chuyita auris surveillance screening). If negative screen 6 months, R/O C. auris status can be removed. 11/08/2024 12/19/2024 documented as of this encounter
--- OUTSIDE RECORDS SUMMARY | 2025-01-25 08:39 | XMS_ITS | Clinical Summary ---
Author Organization [facility] Address [address], [facility] [address] [place] [address] Phone Care Team Providers Care Vp Cardiovascular Service Line Name Role Phone Abraham Lazaro MD Unavailable Kathleen Aviles APRN, BAGGAGE SMASHER Primary Care Provider [phone] Allergies No known active allergies Medications albuterol [...] ations:Seasonal allergic rhinitis due to pollen 1 [place] by Nasal route daily. Use in each [...] sodium chloride (OCEAN) 0.65 % Solution 1 [place] by Nasal route 2 times daily as [...] Type Department Care Team Description 01/04/2025 Refill [facility] - Primary Care - [place] [address] [place] [address] Manuel Ravi MD Medication Refill 12/21/2024 [facility]phone [facility] [address] [place] [phone] Kathleen Aviles, SALES BRANCH MANAGER, BAGGAGE SMASHER Request for Records 10/29/2024 12:08 PM CDT - 11/08/2024 4:56 PM CDT [facility] [address] [place] [phone] Jose Salinas MD Krishna, Naveen Kumar, MD Acute on chronic respiratory failure with hypoxia (HCC) 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 More than 4 times per year 10/29/2024 Do you belong to any clubs o r organizations such as voodoo groups, unions, fraternal or athletic groups, or [...] care, and heating? Not very hard 10/29/2024 [facility] - Occupational Stress [...] any time in the past 12 m [facility], were you homeless or living in a custodial (including now)? No 10/29/2024 [facility] Utilities Answer Date Recorded In the past [...] Primary Care - [place] [address] [place] [address] Kathleen Aviles, SALES BRANCH MANAGER, BAGGAGE SMASHER [address] [place] [address] Health Maintenance Due Date Last Done Comments TdaP Immunization 1945 Zoster Immunization (1 of 2) 12/04/1993 Respiratory Syncytial Virus (RSV) Immunization (Adult) (1 - 1-dose 75+ series) 12/04/2018 Influenza Immunization (#1) 2025 09/2 07/2023, 01/28/2023, 01/18/2021 SARS-COV-2 Immunization (2024- season) 2025 09/11/2020, 08/14/2020 Diabetes: Eye Exam [...] POCT GLUCOSE Routine 11/03/2024 9:59 AM CDT RSV,SARS-COV-2,INFLUEN ZA A&B BY PCR STAT 11/03/2024 7:09 AM [...] 11/01/2024 2:46 PM CDT CRYPTOCOCCAL AG QLT,SER,SCR *[facility] Routine 11/01/2024 2:46 PM CDT FUNGAL ANTIBODY [...] CDT EKG SCAN 10/25/2024 12:00 AM CDT HEMOGLOBIN A1C W/ ESTIMATED GLUCOSE Routine 10/19/2024 11:45 AM CDT HM DILATED EYE EXAM 04/19/2024 1 2:00 AM JAI ALAI PLAYER HEPATITIS C ANTIBODY Routine 01/28/2023 11:35 AM [...] CONSULT Sophie l Result Performing Organization Address City/State/[facility] Co de Phone Number SCAN * PHYSICAL THERAPY CONSULT (12/01/2024 12:00 AM CDT) 12/01/2024 us Provider Scan GENERIC SCAN ORDERS CONSULT Sophie l Result Performing Organization Address City/State/[facility] Co de Phone Number SCAN * NUTRITION CONSULT (12/01/2024 12:00 AM CDT) 12/01/2024 us Provider Scan GENERIC SCAN ORDERS CONSULT Sophie l Result SCAN * INTERNAL MEDICINE CONSULT (12/01/2024 12:00 AM CDT) 12/01/2024 us Provider Scan GENERIC SCAN ORDERS CONSULT Sophie l Result Performing Organization Address City/State/[facility] Co de Phone Number SCAN * ENDOCRINOLOGY CONSULT (12/01/2024 12:00 AM CDT) 12/01/2024 us Provider Scan GENERIC SCAN ORDERS CONSULT Sophie l Result SCAN * (ABNORMAL) POCT Glucose (11/08/2024 11:42 AM CDT) Only the most recent of53 resultswithin the time period is included. GLUCOSE,BEDSID E POCT 351(H) 70 - 99 mg/dL 11/08/2024 11:47 AM CDT [facility] Comment:RN Notified Blood 11/08/2024 11:4 2 AM CDT 11/08/2024 11:47 AM CDT us None Provider POINT OF CARE TESTING Final Resu lt [facility] [address] [place] [address] * (ABNORMAL) Renal Function Panel (RFP) (11/08/2024 5:29 AM CDT) Only the most recent of2 resultswithin the time period is included. SODIUM 137 136 - 145 mmol/L 11/08/2024 6:[address] [facility] POTASSIUM 5.1 3.5 - 5.1 mmol/L 11/08/2024 6:[address] [facility] CHLORIDE 105 98 - 107 mmol/L 11/08/2024 6:[address] [facility] CO2, VENOUS 25 22 - 30 mmol/L 11/08/2024 6:[address] [facility] ANION GAP 12.1 <18.0 mmol/L 11/08/2024 6:[address] [facility] GLUCOSE 192(H) 70 - 99 mg/dL 11/08/2024 6:[address] [facility] BUN 43(H) 8 - 26 mg/dL 11/08/2024 6:[address] [facility] CREATININE, BLOOD 1.22 0.70 - 1.30 mg/dL 11/08/2024 6:[address] [facility] BUN/CREATININE RATIO 35(H) 12 - 20 ratio 11/08/2024 6:[address] [facility] ALBUMIN 2.7(L) 3.5 - 5.0 g/dL 11/08/2024 6:[address] [facility] CALCIUM 7.6(L) 8.7 - 10.5 mg/dL 11/08/2024 6:07 AM CDT [facility] PHOSPHORUS 3.4 2.5 - 4.5 mg/dL 11/08/2024 6:07 AM CDT [facility] GFR, ESTIMATED 60 >=60 11/08/2024 6:07 AM CDT [facility] Comment: Creatinine Clearance is the preferred criteria for selecting drug dose adjustments in renally impaired patients. The GFR is provided as additional pertinent clinical information. GFR is reported in mL/min/1.73 sq m. Calculation based on the Chronic Kidney Disease Epidemiology Collaboration (CKD- EPI) equation refit without adjustment for race. GFR, EST. >60 >=60 025 6:07 AM CDT [facility] GFR, EST. NONAFRICAN 57(L) >=60 11/08/2024 6:07 AM CDT [facility] Blood Venipuncture / Unknown 11/08/2024 5:29 AM CDT 11/08/2024 5:41 AM CDT David Zimmerman MD CHEMISTRY ORDERABLES Final Result [facility] [address] [place] [address] * RHYTHM STRIP (11/08/2024 12:00 AM CDT) Only the most recent of36 resultswithin the time period is included. 11/08/2024 Provider Scan IMG ECG ORDERABLES Final Result RESULTING AGENCY * XR CHEST SINGLE VIEW [...] Alexandra Cordon M.D. SN: SN Report ID: [id number] Reading Location: [id number] Procedure Note Alexandra Cordon MD - 11/06/2024 [...] Alexandra Cordon M.D. SN: SN Report ID: [id number] Reading Location: [id number] IMPRESSION: Stable multifocal pneumonia. Elio Porter MD [facility] DIAGNOSTIC ORDERABLES Final Result * (ABNORMAL) CBC with Auto Differential (11/05/2024 4:13 AM CDT) Only the most recent of11 resultswithin the time period is included. WBC 8.11 4.00 - 12.00 10(3)/mcL 11/05/2024 5:14 AM CDT [facility] RBC 3.71(L) 4.40 - 5.80 10(6)/mcL 11/05/2024 5:14 AM CDT [facility] HEMOGLOBIN (HGB) 10.5(L) 13.0 - 16.5 g/dL 11/05/2024 5:14 AM CDT [facility] HEMATOCRIT (HCT) 31.6(L) 38.0 - 50.0 % 11/05/2024 5:14 AM CDT [facility] MCV 85.2 82.0 - 96.0 fL 11/05/2024 5:14 AM CDT [facility] MCH 28.3 26.0 - 32.0 pg 11/05/2024 5:14 AM CDT [facility] MCHC 33.2 31.0 - 36.0 g/dL 11/05/2024 5:14 AM CDT [facility] PLATELET COUNT 319 140 - 440 10(3)/mcL 11/05/2024 5:14 AM CDT [facility] RDW 13.4 11.8 - 15.5 % 11/05/2024 5:14 AM CDT [facility] MPV 9.5 8.0 - 12.6 fL 11/05/2024 5:14 AM CDT [facility] NEUTROPHILS 85.9(H) 40.0 - 68.0 % 11/05/2024 5:14 AM CDT [facility] LYMPHOCYTES 8.0(L) 19.0 - 49.0 % 11/05/2024 5:14 AM CDT [facility] MONOCYTES 4.6 3.0 - 13.0 % 11/05/2024 5:14 AM CDT [facility] EOSINOPHILS 0.0 0.0 - 8.0 % 11/05/2024 5:14 AM CDT [facility] BASOPHILS 0.1 0.0 - 1.0 % 11/05/2024 5:14 AM CDT [facility] IMMATURE GRANULOCYTE 1.4(H) 0.0 - 0.4 % 11/05/2024 5:14 AM CDT [facility] Comment:Immature Granulocyte s includes Metamyelocytes, Myelocytes, and Promyelocytes. ABSOLUTE NEUTROPHILS 6.97(H) 1.40 - 5.30 10(3)/[facility] 11/05/2024 5:[address] [facility] ABSOLUTE LYMPHOCYTES 0.65(L) 0.90 - 3.30 10(3)/[facility] 11/05/2024 5:14 AM CDT [facility] ABSOLUTE MONOCYTES 0.37 0.10 - 0.90 10(3)/[facility] 11/05/2024 5:[address] [facility] ABSOLUTE EOSINOPHIL 0.00 0.00 - 0.50 10(3)/[facility] 11/05/2024 5:[address] [facility] ABSOLUTE BASOPHILS 0.01 0.00 - 0.10 10(3)/[facility] 11/05/2024 5:[address] [facility] ABSOLUTE IMMATURE GRANULOCYTE 0.11(H) 0.00 - 0.03 10 (3) mcL. 11/05/2024 5:[address] [facility] NRBC PER 100 WBC 0 11/06/19 5:[address] [facility] Blood Venipuncture / Unknown 11/05/2024 4:13 AM CDT 11/05/2024 5:09 AM CDT Aquiles Medina MD HEMATOLOGY ORDERABLES Fi nal Result [facility] [address] [place] [address] * (ABNORMAL) CMP (Comprehensive Metabolic Panel) (11/05/2024 4:13 AM CDT) Only the most recent of8 resultswithin the time period is included. SODIUM 137 136 - 145 mmol/L 11/05/2024 5:[address] [facility] POTASSIUM 3.8 3.5 - 5.1 mmol/L 11/05/2024 5:[address] [facility] CHLORIDE 103 98 - 107 mmol/L 11/05/2024 5:[address] [facility] CO2, VENOUS 26 22 - 30 mmol/L 11/05/2024 5:[address] [facility] ANION GAP 11.8 <18.0 mmol/L 11/05/2024 5:[address] [facility] GLUCOSE 290(H) 70 - 99 mg/dL 11/05/2024 5:[address] [facility] BUN 49(H) 8 - 26 mg/dL 11/05/2024 5:[address] [facility] CREATININE, BLOOD 1.62(H) 0.70 - 1.30 mg/dL 11/05/2024 5:[address] [facility] BUN/CREATININE RATIO 30(H) 12 - 20 ratio 11/05/2024 5:[address] [facility] TOTAL PROTEIN 5.6(L) 6.0 - 8.0 g/dL 11/05/2024 5:[address] [facility] ALBUMIN 2.7(L) 3.5 - 5.0 g/dL 11/05/2024 5:[address] [facility] A/G RATIO 0.9(L) 1.0 - 2.2 11/05/2024 5:[address] [facility] CALCIUM 7.2(L) 8.7 - 10.5 mg/dL 11/05/2024 5:28 AM CDT [facility] T BILI 0.6 0.2 - 1.2 mg/dL 11/05/2024 5:28 AM CDT [facility] SGOT (AST) 25 <43 U/L 11/05/2024 5:28 AM CDT [facility] SGPT (ALT) 85(H) <56 U/L 11/05/2024 5:28 AM CDT [facility] ALKALINE PHOSPHATASE 97 40 - 150 U/L 11/05/2024 5:28 AM CDT [facility] GFR, ESTIMATED 43(L) >=60 11/05/2024 5:28 AM CDT [facility] Comment: Creatinine Clearance is the preferred criteria for selecting drug dose adjustments in renally impaired patients. The GFR is provided as additional pertinent clinical information. GFR is reported in mL/min/1.73 sq m. Calculation based on the Chronic Kidney Disease Epidemiology Collaboration (CKD- EPI) equation refit without adjustment for race. GFR, EST. 50(L) >=60 025 5:[address] [facility] GFR, EST. NONAFRICAN 41(L) >=60 11/05/2024 5:[address] [facility] Blood Venipuncture / Unknown 11/05/2024 4:13 AM CDT 11/05/2024 5:09 AM CDT us Aquiles Medina MD CHEMISTRY ORDERABLES Fin al Result [facility] [address] [place] [address] * (ABNORMAL) RSV,SARS-COV-2,INFLUENZA A&B BY PCR (11/03/2024 7:09 AM CDT) FLU A Negative Negative, Error 11/03/2024 7:57 AM CDT [facility] FLU B Negative Negative 11/03/2024 7:57 AM CDT [facility] RESP SYNC VIRUS Negative Negative 11/03/2024 7:57 AM CDT [facility] SARSCOV2 DETECTED(A) (Reference Range for this test is Not Detected) 11/03/2024 7:57 AM CDT [facility] Nasopharyngeal NASOPHARYNGEAL STRUCTURE / Unknown Non-Phlebotomy Collection / Unknown 11/03/2024 7:09 AM CDT 11/03/2024 7:16 AM CDT Mathew Pappas MD MICROBIOLOGY - GENERAL ORDERABL ES Final Result Performing Organization Address [facility]/ZIP Co de Phone Number [facility] [address] [place] [address] * (ABNORMAL) D-Dimer (11/02/2024 3:47 AM CDT) D DIMER 1.11(H) <0.50 mcg/mL FEU 11/02/2024 4:46 AM CDT [facility] Blood Venipuncture / Unknown 11/02/2024 3:47 AM CDT 11/02/2024 4:21 AM CDT Narrative [facility] - 11/02/2024 4:46 AM CDT The FDA has approved this method to exclude the diagnosis of DVT and/or PE at the cutoff value of <0.50 mcg/mL FEU. us Aquiles Medina MD HEMATOLOGY ORDERABLES Fi nal Result [facility] [address] [place] [address] * (ABNORMAL) NT-proBNP (11/01/2024 5:47 PM CDT) NT PROBNP 1,922.5(H) <450.0 pg/mL 11/01/2024 6:21 PM CDT [facility] Comment: AGE pg/mL INTERPRETATION All <300 [...] 5:47 PM CDT 11/01/2024 5:55 PM CDT us Aquiles Medina MD CHEMISTRY ORDERABLES Fin al Result [facility] [address] [place] [address] * QUANTIFERON-TB GOLD PLUS (11/01/2024 2:46 PM CDT) NIL CONTROL 0.02 <8.01 IU/mL 11/03/2024 10:03 AM CDT [facility] TB ANTIGEN 1 0.00 <0.35 IU/mL 11/03/2024 10:03 AM CDT [facility] TB ANTIGEN 2 0.00 <0.35 IU/mL 11/03/2024 10:03 AM CDT [facility] MITOGEN CONTROL 9.55 >0.49 IU/mL 11/04/19 10:03 AM CDT [facility] INTEPRETATION TB NEGATIVE NEGATIVE, NEGATIVE (TB antigen response less than 25% of internal negative control value) 11/03/2024 10:03 AM CDT [facility] Comment:No immune response t o Mycobacterium tuberculosis antigens was noted. M. tuberculosis infection unlikely. Blood Venipuncture / Unknown 11/01/2024 2:46 PM CDT 11/01/2024 3:26 PM CDT Narrative [facility] - 11/03/2024 10:03 AM CDT A POSITIVE [...] individuals. https://www.cdc.gov/tb/publications/guidelines/testing.htm Eva Malik MD IMMUNOLOGY ORDERABLES Fi nal Result [facility] [address] [place] [address], [place] * Fungal Antibody (Asper, Histo, Blasto) (11/01/2024 2:46 PM CDT) HISTO CAPSUL H BAND Negative Negative 11/04/2024 9:00 AM CDT [facility] HISTO CAPSUL M BAND Negative Negative 11/04/2024 9:00 AM CDT [facility] COCCIDIOIDES IMMITIS Negative Negative 11/04/2024 9:00 AM CDT [facility] BLASTOMYCES DERMAT Negative Negative 11/04/2024 9:00 AM CDT [facility] ASPERGILLUS FUMIGATS Negative Negative 11/04/2024 9:00 AM CDT [facility] 48 HOUR REPORT Negative Negative 11/04/2024 9:00 AM CDT [facility] Blood Venipuncture / Unknown 11/01/2024 2:46 PM CDT 11/01/2024 3:25 PM CDT Eva Malik MD IMMUNOLOGY ORDERABLES Fi nal Result Performing Organization Address City/[facility]/ZIP Co de Phone Number [facility] [address] [place] [address], [place] * Cryptococcal Ag Qlt,Ser,Scr *[facility] (11/01/2024 2:46 PM CDT) CRYPTOCOCL AG QL SER SCREEN ONLY Negative Negative 11/02/2024 8:27 AM CDT [facility] Blood Venipuncture / Unknown 11/01/2024 2:46 PM CDT 11/01/2024 3:26 PM CDT Eva Malik MD IMMUNOLOGY ORDERABLES Fi nal Result Performing Organization Address City/[facility] Co de Phone Number [facility] [address] [place] [address], [place] * Magnesium (Mg) (11/01/2024 7:18 AM CDT) Only the most recent of3 resultswithin the time period is included. MAGNESIUM 2.4 1.6 - 2.6 mg/dL 11/01/2024 7:47 AM CDT [facility] Blood Venipuncture / Unknown 11/01/2024 7:18 AM CDT 11/01/2024 7:24 AM CDT Shobha Vazquez APRN, KEEGAN CHEMISTRY ORDERABLES Final Result Performing Organization Address City/[facility] Co de Phone Number [facility] [address] [place] [address] * TROPONIN I, HIGH SENSITIVITY (HSTRP) (10/29/2024 8:18 PM CDT) Only the most recent of2 resultswithin the time period is included. [facility] TROPONIN I, HIGH SENSITIVITY- [place] 17 <=35 ng/L 10/29/2024 8:[address] [facility] Comment: High-sensitivity troponin I results are reported in ng/L making the result appear to be 1,000 times higher than the contemporary troponin I value which is reported in ng/ml. Results from [place]. Blood Venipuncture / Unknown 10/29/2024 8:18 PM CDT 10/29/2024 8:18 PM CDT Shobha Vazquez APRN, BAGGAGE SMASHER CHEMISTRY ORDERABLES Final Result Performing Organization Address City/[facility] Co de Phone Number [facility] [address] [place] [address] * MRSA NASAL PCR (10/29/2024 8:07 PM CDT) [facility] MRSA PCR RESULT Negative Negative, Invalid 10/29/2024 9:[address] [facility] Other NASOPHARYNGEAL SWAB / Unknown Non-Phlebotomy Collection / Unknown 10/29/2024 8:07 PM CDT 10/29/2024 8:18 PM CDT Shobha M [place] SALES BRANCH MANAGER, BAGGAGE SMASHER MICROBIOLOGY - GENERA L ORDERABLES Final Result [facility] [address] [place] [address] * (ABNORMAL) Urinalysis with Reflex (10/29/2024 2:58 PM CDT) SPECIFIC GRAVITY 1.015 1.003 - 1.030 10/29/2024 4:01 PM CDT [facility] URINE PH 6.0 5.0 - 9.0 10/29/2024 4:[address] [facility] WBC ESTERASE Negative Negative 10/29/2024 4:01 PM CDT [facility] NITRITE Negative Negative 10/29/2024 4:[address] [facility] PROTEIN, RANDOM URINE 30 mg/dL(A) Negative 10/29/2024 4:[address] [facility] URINE GLUCOSE, QUAL Negative Negative 10/29/2024 4:[address] [facility] URINE KETONES 5 mg/dL(A) Negative 10/29/2024 4:[address] [facility] UROBILINOGEN 1 mg/dL(A) Normal mg/dL 10/29/2024 4:[address] [facility] URINE BLOOD Negative Negative erika/ul 10/29/2024 4:[address] [facility] URINALYSIS COLOR Yellow 10/30/19 4:01 PM CDT [facility] URINALYSIS CLARITY Clear 10/29/2024 4:[address] [facility] WBC (Urine) 0-5 Negative, 0-5 /hpf 10/29/2024 4:[address] [facility] URINE RBC'S Negative Negative, 0-2 /hpf 10/29/2024 4:[address] [facility] EPITHELIAL CELLS Negative /lpf 10/30/19 4:[address] [facility] BACTERIA, URINE Negative Negative /hpf 10/29/2024 4:[address] [facility] URINE MUCOUS Few 10/29/2024 4:01 PM CDT [facility] Urine URINE SPECIMEN / Unknown Non-Phlebotomy Collection / Unknown 10/29/2024 2:58 PM CDT 10/29/2024 3:03 PM CDT Jose Salinas MD URINE ORDERABLES Final Res ult [facility] [address] [place] [address] * Blood Culture #1 (10/29/2024 12:44 PM CDT) Only the most recent of2 resultswithin the time period is included. CULTURE RESULTS NO GROWTH WITHIN 5 DAYS, FINAL RESULT 11/03/2024 2:00 PM CDT [facility] Culture BLOOD SPECIMEN / Unknown Venipuncture / Unknown 10/29/2024 12:44 PM CDT 10/29/2024 1:06 PM CDT Jose Salinas MD MICROBIOLOGY - GENERAL ORD ERABLES Final Result [facility] [address] [place] [address], [place] * Lactic Acid (Lactate) (10/29/2024 12:20 PM CDT) LACTIC ACID 1.4 0.7 - 2.0 mmol/L 10/29/2024 12:[address] [facility] Blood Venipuncture / Unknown 10/29/2024 12:20 PM CDT 10/29/2024 12:33 PM CDT Jose Salinas MD CHEMISTRY ORDERABLES Final Result [facility] [address] [place] [address] * (ABNORMAL) B-Type Natriuretic Peptide (BNP) (10/29/2024 12:20 PM CDT) B TYPE NATRIURETIC PEPTIDE 407(H) <100 pg/mL 10/29/2024 2:40 PM CDT [facility] Blood Venipuncture / Unknown 10/29/2024 12:20 PM CDT 10/29/2024 12:33 PM CDT us Jose Salinas MD CHEMISTRY ORDERABLES Final Result [facility] [address] [place] [address] * EKG 12 LEAD (10/29/2024 12:11 PM CDT) Only the most recent of3 resultswithin the time period is included. [facility] Ventricular Rate 70 BPM EXTERNAL EKG Atrial Rate 70 BPM EXTERNAL EKG P-R Interval 198 ms EXTERNAL EKG QRS Duration 108 ms EXTERNAL EKG Q-T Duration 404 ms EXTERNAL EKG QTC CALCULATION 436 ms EXTERNAL EKG P Blanchard 56 degrees EXTERNAL EKG R Blanchard 36 degrees EXTERNAL EKG T Blanchard 11 degrees EXTERNAL EKG 10/29/2024 12:1 1 PM CDT Impressions EXTERNAL EKG - 10/31/2024 10:29 PM CDT Normal sinus rhythm Normal ECG When compared with ECG of 26-OCT-2024 03:24, QT has shortened Confirmed by Noni Go ([id number]) on 10/31/2024 10:29:19 PM Narrative Procedure Note Noni Go DO - 10/31/2024 IMPRESSION: Normal sinus rhythm Normal ECG When compared with ECG of 26-OCT-2024 03:24, QT has shortened Confirmed by Noni Go ([id number]) on 10/31/2024 10:29:19 PM us Jose Salinas MD IMG ECG ORDERABLES Final R esult EXTERNAL EKG * EKG SCAN (10/29/2024 12:00 AM CDT) Only the most recent of3 resultswithin the time period is included. 10/29/2024 us Provider Scan IMG ECG ORDERABLES Final Result Performing Organization Address City/[facility]/ZIP Co de Phone Number RESULTING AGENCY * (ABNORMAL) BMP with Ca, Total (10/27/2024 6:56 AM CDT) Only the most recent of3 resultswithin the time period is included. SODIUM 138 136 - 145 mmol/L 10/27/2024 7:18 AM CDT [facility] POTASSIUM 3.9 3.5 - 5.1 mmol/L 10/27/2024 7:18 AM CDT [facility] CHLORIDE 108(H) 98 - 107 mmol/L 10/27/2024 7:[address] [facility] CO2, VENOUS 24 22 - 30 mmol/L 10/27/2024 7:18 AM CDT [facility] ANION GAP 9.9 <18.0 mmol/L 10/27/2024 7:18 AM CDT [facility] GLUCOSE 151(H) 70 - 99 mg/dL 10/27/2024 7:18 AM CDT [facility] BUN 14 8 - 26 mg/dL 10/27/2024 7:[address] [facility] CREATININE, BLOOD 1.07 0.70 - 1.30 mg/dL 10/27/2024 7:[address] [facility] BUN/CREATININE RATIO 13 12 - 20 ratio 10/27/2024 7:[address] [facility] CALCIUM 7.5(L) 8.7 - 10.5 mg/dL 10/27/2024 7:18 AM CDT [facility] GFR, ESTIMATED >60 >=60 10/27/2024 7:18 AM CDT [facility] Comment: Creatinine Clearance is the preferred criteria for selecting drug dose adjustments in renally impaired patients. The GFR is provided as additional pertinent clinical information. GFR is reported in mL/min/1.73 sq m. Calculation based on the Chronic Kidney Disease Epidemiology Collaboration (CKD- EPI) equation refit without adjustment for race. GFR, EST. >60 >=60 025 7:18 AM CDT [facility] GFR, EST. NONAFRICAN >60 >=60 10/27/2024 7:18 AM CDT [facility] Blood Venipuncture / Unknown 10/27/2024 6:56 AM CDT 10/27/2024 6:56 AM CDT us Susan Wilson [employer], [employer] CHEMISTRY ORDERABLES Sophie l Result [facility] [address] [place] [address] * Manual Differential (10/26/2024 3:32 AM CDT) BANDS % 4.0 % 10/26/2024 5:45 AM CDT [facility] NEUTROPHILS % 65.0 40.0 - 68.0 % 10/26/2024 5:45 AM CDT [facility] LYMPHOCYTES % 23.0 19.0 - 49.0 % 10/26/2024 5:45 AM CDT [facility] MONOCYTES % 6.0 3.0 - 13.0 % 10/26/2024 5:45 AM CDT [facility] EOSINOPHILS % 2.0 0.0 - 8.0 % 10/26/2024 5:45 AM CDT [facility] NEUTROPHILS ABSOLUTE 4.20 1.50 - 6.70 10(3)/mcL 10/26/2024 5:45 AM CDT [facility] LYMPHOCYTES ABSOLUTE 1.40 0.90 - 3.30 10(3)/mcL 10/26/2024 5:45 AM CDT [facility] MONOCYTES ABSOLUTE 0.37 0.10 - 0.90 10(3)/mcL 10/26/2024 5:45 AM CDT [facility] EOSINOPHILS ABSOLUTE 0.12 0.00 - 0.50 10(3)/mcL 10/26/2024 5:45 AM CDT [facility] RBC MORPHOLOGY CONSISTENT WITH INDICES Yes 10/26/2024 5:45 AM CDT [facility] WBC MORPH STATUS Normal 10/27/19 5:45 AM CDT [facility] PLATELET STATUS Normal 5:45 AM CDT [facility] Blood Venipuncture / Unknown 10/26/2024 3:32 AM CDT 10/26/2024 3:39 AM CDT us Susan Wilson SALES BRANCH MANAGER, BAGGAGE SMASHER HEMATOLOGY ORDERABLES Fin al Result [facility] [address] [place] [address] * (ABNORMAL) Hemoglobin A1C (if indicated) (10/19/2024 11:45 AM CDT) HGB-A1C 7.0(H) 4.0 - 6.0 % 10/19/2024 5:22 PM CDT [facility] Est Average Glucose 154.2 mg/dL 10/19/2024 5:[address] [facility] Blood Venipuncture / Unknown 10/19/2024 11:45 AM CDT 10/19/2024 12:[address] [facility] - 10/19/2024 5:22 PM CDT HEMOGLOBIN A1C: DIABETIC PATIENTS: WELL-CONTROLLED: 6.2 - 7.0 INTERMEDIATE WELL-CONTROLLED: 7.0 - 9.0 POORLY-CONTROLLED: >9.0 Specimens containing greater than 5% of Hemoglobin F may result in lower than expected % HbA1C results. us Noé Hall SALES BRANCH MANAGER, BAGGAGE SMASHER CHEMISTRY ORDERABLES Fi nal Result [facility] [address] [place] [address] * HM DILATED EYE EXAM (04/19/2024 12:00 AM JAI ALAI PLAYER) 04/19/2024 us Provider Scan PROCEDURE/MINOR SURGICAL ORDERAB LES Final Result SCAN * HEPATITIS C ANTIBODY (01/28/2023 11:35 AM CDT) hepatitis C antibody 0.07 <1 S/CO [facility] ARCH [id number] 01/28/2023 10:35 PM CDT [facility] Comment: Signal/Cutoff ratio < 0.79 is Nondetected Signal/Cutoff ratio 0.80-0.99 is Grayzone Signal/Cutoff ratio > 0.99 is Detected Supplemental assays are recommended if signal/cutoff ratio is >/=1.00. Signal/cutoff ratio result >/= 5.00 is 97% predictive of positivity for recombinant immunoblot assay (RIBA) and will be reported to the [place] Department of Public Health as required. Blood Venipuncture / Unknown 01/28/2023 11:35 AM CDT 01/28/2023 11:35 AM CDT us Manuel Ravi MD CHEMISTRY ORDERABLES Sophie l Result [facility] [address] [place] [address], [place] from Last 3 Months or Most [...] measures to stabilize the patient. Care Teams Vp Cardiovascular Service Line Relationship Specialty Start Date End Date Kathleen Aviles, SALES BRANCH MANAGER, BAGGAGE SMASHER [address] [place] [address] PCP - General Certified Nurse Practitioner 02/01/24 Abraham Lazaro MD [address] [address] Consulting Physician Endocrinology 07/19/21
--- OUTSIDE RECORDS SUMMARY | 2025-01-25 08:39 | XMS_ITS | Encounter Summary ---
Author Organization [facility] Address [address] [place] [address] Care Team Providers Care Nurse Extern Name Role Phone Unavailable Primary Care Provider Unavailabl e Encounter Details Date Type Department Care Team (Late st Contact Info) Description 11/30/2024 Lab Requisition [facility] Laboratory Services [address] [place] [address] [place] [address] [place] [address] Social History Tobacco Use Types [...] - 9.8 K/uL 11/30/2024 7:28 AM CDT [facility]ORY SERVICES - [facility] RBC 4.08(L) 4.50 - 5.40 M/uL 11/30/2024 7:28 AM CDT [facility] HEMOGLOBIN 11.7(L) 13.6 - 16.5 g/dL 11/30/2024 7:28 AM CDT [facility] HEMATOCRIT 33.8(L) 40.0 - 48.0 % 11/30/2024 7:28 AM CDT [facility] MCV 82.8 82.0 - 99.0 fL 11/30/2024 7:28 AM CDT [facility] MCH 28.7 27.2 - 32.6 pg 11/30/2024 7:28 AM CDT [facility] MCHC 34.6 31.5 - 35.5 g/dL 11/30/2024 7:28 AM CDT [facility] RDW 15.2(H) 11.5 - 14.5 % 11/30/2024 7:28 AM CDT [facility] RDW-STDEV 45.5 37.1 - 48.7 fL 11/30/2024 7:28 AM CDT [facility] PLATELETS 121(L) 140 - 350 K/uL 11/30/2024 7:28 AM CDT [facility] MPV 9.8 9.3 - 12.4 fL 11/30/2024 7:28 AM CDT [facility] NEUTROPHILS 56 % 11/30/2024 7:28 AM CDT [facility] LYMPHOCYTES 36 % 11/30/2024 7:28 AM CDT [facility] MONOCYTES 4 % 11/30/2024 7:28 AM CDT [facility] EOSINOPHILS 1 % 11/30/2024 7:28 AM CDT [facility] BASOPHILS 0 % 11/30/2024 7:28 AM CDT [facility] IMMATURE GRANULOCYTES 3 % 11/30/2024 7:28 AM CDT [facility] Comment:IG (Immature Granulo cyte) count includes Metamyelocytes, Myelocytes, and Promyelocytes NEUTROPHIL ABSOLUTE 2.83 1.90 - 7.00 K/uL 11/30/2024 7:28 AM CDT [facility] LYMPHOCYTE ABSOLUTE 1.80 0.70 - 4.50 K/uL 11/30/2024 7:28 AM CDT [facility] MONOCYTE ABSOLUTE 0.19 0.10 - 1.30 K/uL 11/30/2024 7:28 AM CDT [facility] EOSINOPHIL ABSOLUTE 0.05 0.00 - 0.70 K/uL 11/30/2024 7:28 AM CDT [facility] BASOPHILS ABSOLUTE 0.02 0.00 - 0.20 K/uL 11/30/2024 7:28 AM CDT [facility] IMMATURE GRANULOCYTES ABSOLUTE 0.13(H) 0.00 - 0.03 K/uL 11/30/2024 7:28 AM CDT [facility] Blood Collection / Unknown 11/30/2024 3:10 AM CDT 11/30/2024 7:06 AM CDT us Darlin Stapleton MD HEMATOLOGY ORDERABLES Final Resu lt [facility] CLIA# [id number] [place] [address] * (ABNORMAL) BASIC METABOLIC PANEL (11/30/2024 3:10 AM CDT) SODIUM 128(L) 136 - 145 mmol/L 11/30/2024 7:51 AM CDT [facility] POTASSIUM 4.6 3.4 - 5.1 mmol/L 11/30/2024 7:51 AM CDT [facility] CHLORIDE 96(L) 98 - 107 mmol/L 11/30/2024 7:51 AM CDT [facility] CO2 20(L) 22 - 29 mmol/L 11/30/2024 7:51 AM CDT [facility] CALCIUM 7.6(L) 8.6 - 10.4 mg/dL 11/30/2024 7:51 AM CDT [facility] BUN 37(H) 6 - 20 mg/dL 11/30/2024 7:51 AM CDT [facility] CREATININE 1.46(H) 0.67 - 1.17 mg/dL 11/30/2024 7:51 AM T [facility] Comment:The GFR result is no t clinically significant on patients <18 or >70 years of age. GLUCOSE 126(H) 74 - 99 mg/dL 11/30/2024 7:51 AM T [facility] GFR 48 mL/min/1.7 3 sq meter 11/30/2024 7:51 AM T [facility] Comment:eGFR calculated with 2020 CKD-EPI equation. Vegetarian diet, extremely high or low muscle mass, and may affect results. Cystatin C with Glomerular Filtration Rate is a suitable alternative for these patients. ANION GAP 12 8 - 16 mmol/L 11/30/2024 7:51 AM T [facility] Blood Collection / Unknown 11/30/2024 3:10 AM CDT 11/30/2024 7:06 AM CDT Darlin Stapleton MD CHEMISTRY ORDERABLES Final Resul t [facility] CLIA# [id number] [place] [address] documented in this encounter Visit Diagnoses Not [...] the following 6 months, and once thereafter ([id number], Chuyita auris surveillance screening). If negative screen 6 months, R/O C. auris status can be removed. 11/08/2024 12/19/2024 documented as of this encounter
--- OUTSIDE RECORDS SUMMARY | 2025-01-25 08:39 | XMS_ITS | Encounter Summary ---
Author Organization [facility] Address [address] [place] [address] Care Team Providers Care Fiberglass Tube Molder Name Role Phone Unavailable Primary Care Provider Unavailabl e Encounter Details Date Type Department Care Team (Late st Contact Info) Description 11/21/2024 Lab Requisition [facility] Laboratory Services [address] [place] [address] [place] [address] [place] [address] Social History Tobacco Use Types [...] WITH DIFFERENTIAL (11/21/2024 3:45 AM CDT) Pathologist [facility] WBC 5.5 4.0 - 9.8 K/uL 11/21/2024 8:20 AM CDT [facility]ORATORY SERVICES [facility] RBC 3.92(L) 4.50 - 5.40 M/uL 11/21/2024 8:20 AM CDT [facility] LABORATORY [facility] HEMOGLOBIN 11.2(L) 13.6 - 16.5 g/dL 11/21/2024 8:20 AM CDT [facility]OR[facility] HEMATOCRIT 33.7(L) 40.0 - 48.0 % 11/21/2024 8:20 AM CDT [facility]ORATORY [facility] MCV 86.0 82.0 - 99.0 fL 11/21/2024 8:20 AM CDT [facility]OR[facility] MCH 28.6 27.2 - 32.6 pg 11/21/2024 8:20 AM CDT [facility]OR[facility] MCHC 33.2 31.5 - 35.5 g/dL 11/21/2024 8:20 AM CDT [facility]ORATORY [facility] RDW 15.2(H) 11.5 - 14.5 % 11/21/2024 8:20 AM CDT [facility]OR[facility]ORY [facility] RDW-STDEV 47.2 37.1 - 48.7 fL 11/21/2024 8:20 AM CDT [facility]OR[facility] PLATELETS 79(L) 140 - 350 K/uL 11/21/2024 8:20 AM CDT [facility] MPV 10.5 9.3 - 12.4 fL 11/21/2024 8:20 AM CDT [facility]OR[facility] NEUTROPHILS 85 % 11/21/2024 8:20 AM CDT [facility] LYMPHOCYTES 10 % 11/21/2024 8:20 AM CDT [facility] MONOCYTES 4 % 11/21/2024 8:20 AM CDT [facility] EOSINOPHILS 0 % 11/21/2024 8:20 AM CDT [facility] BASOPHILS 0 % 11/21/2024 8:20 AM CDT [facility] IMMATURE GRANULOCYTES 1 % 11/21/2024 8:20 AM CDT [facility] Comment:IG (Immature Granulo cyte) count includes Metamyelocytes, Myelocytes, and Promyelocytes NEUTROPHIL ABSOLUTE 4.66 1.90 - 7.00 K/uL 11/21/2024 8:20 AM CDT [facility]OR[facility] LYMPHOCYTE ABSOLUTE 0.53(L) 0.70 - 4.50 K/uL 11/21/2024 8:20 AM CDT [facility]OR[facility] MONOCYTE ABSOLUTE 0.20 0.10 - 1.30 K/uL 11/21/2024 8:20 AM CDT [facility]OR[facility] EOSINOPHIL ABSOLUTE 0.00 0.00 - 0.70 K/uL 11/21/2024 8:20 AM CDT [facility]ORATORY [facility] BASOPHILS ABSOLUTE 0.01 0.00 - 0.20 K/uL 11/21/2024 8:20 AM CDT [facility]ORATORY [facility] IMMATURE GRANULOCYTES ABSOLUTE 0.06(H) 0.00 - 0.03 K/uL 11/21/2024 8:20 AM CDT [facility] Blood Collection / Unknown 11/21/2024 3:45 AM CDT 11/21/2024 7:21 AM CDT us Polo Ochoa MD HEMATOLOGY ORDERABLES Final Res ult [facility] CLIA# [id number] [place] [address] * (ABNORMAL) BASIC METABOLIC PANEL (11/21/2024 3:45 AM CDT) SODIUM 133(L) 136 - 145 mmol/L 11/21/2024 8:32 AM CDT [facility] POTASSIUM 4.5 3.4 - 5.1 mmol/L 11/21/2024 8:32 AM CDT [facility] CHLORIDE 100 98 - 107 mmol/L 11/21/2024 8:32 AM CDT [facility] CO2 21(L) 22 - 29 mmol/L 11/21/2024 8:32 AM CDT [facility] CALCIUM 8.2(L) 8.6 - 10.4 mg/dL 11/21/2024 8:32 AM CDT [facility] BUN 33(H) 6 - 20 mg/dL 11/21/2024 8:32 AM CDT [facility] CREATININE 1.13 0.67 - 1.17 mg/dL 11/21/2024 8:32 AM T [facility] [employer] [facility] Comment:The GFR result is no t clinically significant on patients <18 or >70 years of age. GLUCOSE 140(H) 74 - 99 mg/dL 11/21/2024 8:32 AM T [facility] GFR >60 mL/min/1.7 3 sq meter 11/21/2024 8:32 AM T [facility] Comment:eGFR calculated with 2020 CKD-EPI equation. Vegetarian diet, extremely high or low muscle mass, and may affect results. Cystatin C with Glomerular Filtration Rate is a suitable alternative for these patients. ANION GAP 12 8 - 16 mmol/L 11/21/2024 8:32 AM T [facility] Blood Collection / Unknown 11/21/2024 3:45 AM CDT 11/21/2024 7:21 AM CDT Polo Ochoa MD CHEMISTRY ORDERABLES Final Resu lt [facility] [employer] [facility] CLIA# [id number] [place] [address] documented in this encounter Visit Diagnoses Not [...] the following 6 months, and once thereafter ([id number], Chuyita auris surveillance screening). If negative screen 6 months, R/O C. auris status can be removed. 11/08/2024 12/19/2024 documented as of this encounter
--- OUTSIDE RECORDS SUMMARY | 2025-01-25 08:40 | XMS_ITS | Encounter Summary ---
Author Organization [facility] Address [address] [place] [address] Phone Care Team Providers Care Hemodialysis Technician Name Role Phone Manuel Ravi MD Primary Care Provider [phone] Abraham Lazaro MD Unavailable Kathleen Aviles CASH APPLICATIONS CLERK, ELECTRONIC SPECIALIST Primary Care Provider [phone] Reason for Visit * Reason Comments Medication Refill Encounter Details Date Type Department Care Team (Late st Contact Info) Description 01/20/2021 Refill [facility] - Primary Care - [place] [address] [place] [address] Manuel Ravi MD [address] [place], [place] [id number] Medication Refill Social History Tobacco Use Types [...] 02/03/2025 1:00 PM CDT Office Visit [facility] - Primary Care - [place] [address] [place] [address] Kathleen Aviles APRN, ELECTRONIC SPECIALIST [address] [place] [address] documented as of this encounter Visit Diagnoses [...] Total Score: 0 07/01/19 20 10:00 AM LEAF SORTER documented as of this encounter Care Teams Hemodialysis Technician Relationship Specialty Start Date End Date Manuel Ravi MD [address] [place] [address] PCP - General Internal Medicine 05/15/18 01/31/24 Kathleen Aviles APRN, ELECTRONIC SPECIALIST [address] [place] [address] PCP - General Certified Nurse Practitioner 02/01/24 Abraham Lazaro MD [address] [address] Consulting Physician Endocrinology 07/19/21 documented as of this encounter
--- NOTE | 2025-01-25 09:12 | HOMEO2EVAL ---
Evaluation was performed at [facility] Home Oxygen Evaluation RC: Home Oxygen (O2) Evaluation Start: 01/25/25 08:59 Freq: Status: Active Protocol: RPE Activity Type Activity Date Activity User E-sign Co-sign Detail Recorded Client Recorded Date Recorded By Document 01/25/25 08:15 [email or web address] [email or web address] 01/25/25 09:11 PKH Document 01/25/25 08:15 [email or web address] [email or web address] 01/25/25 09:11 PKH Document 01/25/25 08:20 [email or web address] [email or web address] 01/25/25 09:11 PKH Document 01/25/25 08:25 [email or web address] [email or web address] 01/25/25 09:11 PKH Document 01/25/25 08:30 [email or web address] 01/25/25 09:11 PKH Document 01/25/25 08:35 [email or web address] [email or web address] 01/25/25 09:11 PKH Document 01/25/25 08:40 [email or web address] [email or web address] 01/25/25 09:11 PKH Document 01/25/25 08:45 [email or web address] [email or web address] 01/25/25 09:11 PKH Document 01/25/25 09:00 [email or web address] [email or web address] 01/25/25 09:11 PKH 01/25/25 01/25/25 01/25/25 08:15 08:15 08:20 Home O2 Evaluation [Oxygen] -Test Phase Resting Resting Resting -Oxygen Delivery Nasal Cannula Nasal Cannula -Oxygen Flow Rate (L/min) 1 2 [Pulse Oximetry] -Pulse Oximetry (90-100 %) 87 L 88 L 90 [Pulse Rate] -Pulse Rate (60-100 beats/min) 80 82 95 [Evaluation] -Activity Tolerance Good [Comments] -Home Oxygen Evaluation Comments [Charges] -Evaluation Charges O2 Evaluation by Pulmonary 01/25/25 01/25/25 01/25/25 08:25 08:30 08:35 Home O2 Evaluation [Oxygen] -Test Phase Exercise Exercise Exercise -Oxygen Delivery Nasal Cannula Nasal Cannula Nasal Cannula -Oxygen Flow Rate (L/min) 2 3 4 [Pulse Oximetry] -Pulse Oximetry (90-100 %) 87 L 86 L 87 L [Pulse Rate] -Pulse Rate (60-100 beats/min) 110 H 109 H 95 [Evaluation] -Activity Tolerance [Comments] -Home Oxygen Evaluation Comments [Charges] -Evaluation Charges 01/25/25 01/25/25 01/25/25 08:40 08:45 09:00 Home O2 Evaluation [Oxygen] -Test Phase Exercise Exercise Resting -Oxygen Delivery Nasal Cannula Nasal Cannula Nasal Cannula -Oxygen Flow Rate (L/min) 5 6 2 [Pulse Oximetry] -Pulse Oximetry (90-100 %) 88 L 91 92 [Pulse Rate] -Pulse Rate (60-100 beats/min) 106 H 106 H 84 [Evaluation] -Activity Tolerance [Comments] -Home Oxygen Evaluation Comments Patient requires 2 lpm with rest and 6 lpm with activity. [Charges] -Evaluation Charges
--- NOTE | 2025-01-25 13:47 | P.PCNPFT_ITS ---
PFT Procedure Performed PFT Procedure Performed Spirometry with Pre/Post Bronchodilator Plethysmography (Lung Vol) Diffusing Cap (DLCO) Flow Vol Loop PFT Interpretation This is a pulmonary function test with pre and post-bronchodilator spirometry, plethysmography and diffusing capacity. The test was performed and results interpreted in accordance with the 2019 and 2005 ATS/ERS Task Force guidelines respectively using the Global Lung Function Initiative-2012 reference equations. Patient demonstrated good effort and cooperation. Reproducibility criteria were met. The quality of the pre bronchodilator spirometry maneuver was Grade U and post bronchodilator spirometry maneuver was Grade U. Of note, patient struggled with effort requirements of the testing. He panted throughout the testing and wore 2 L NC. Findings: Spirometry: Pre and post bronchodilator spirometry maneuvers were graded U. The pre bronchodilator FVC is 3.23 L, 78% predicted. The pre bronchodilator FEV1 is 2.58 L, 85% predicted. The pre bronchodilator FEV1: FVC ratio is 80%. The post bronchodilator FVC is 3.21 L, representing a 1% decrease. The post bronchodilator FEV1 is 2.18 L, representing a 15% decrease. The post bronchodilator FEV1: FVC ratio is 68%. Plethysmography: The total lung capacity is 6.46 L, 86% predicted. The functional residual capacity is 4.57 L, 112% predicted. The residual volume is 3.23 L, 116% predicted. The residual volume: Total lung capacity ratio is 50%. Diffusing capacity: The diffusing capacity unadjusted for hemoglobin and carboxyhemoglobin is 4.4, 18% predicted. The diffusing capacity adjusted for alveolar volume is 1.15, 33% predicted. Impression: The patient struggled with effort requirements of the testing and spirometry maneuvers were graded as U, thus limiting the accuracy of the interpretation. Spirometry is normal without evidence of an obstructive abnor mality. There is no significant improvement after inhaling a single dose of albuterol. The lung volumes are normal With an elevated residual volume: Total lung capacity ratio consistent with hyperinflation. The diffusing capacity unadjusted for hemoglobin and carboxyhemoglobin is severely decreased and remains severely decreased when adjusted for alveolar volume. There are no prior studies for comparison
== END 2025-01-25 08:13 | disposition home or self-care (01) ==
LOC: ANHPFT 08:14
PROVIDERS: PCP Internal Medicine; Visit Provider Internal Medicine Pulmonary Disease
DX: R94.2 Abnormal results of pulmonary function studies (principal); J84.9 Interstitial pulmonary disease, unspecified
CPT/HCPCS: 94060; 94618; 94726; 94729